=== PATIENT | female | born 1955 | race Caucasian/White ===

== ENCOUNTER 2016-03-28 15:03 | Inpatient (IN) | payer SELFPAY ==
[~2016-03-28] VITALS: Ht 170.2 cm; Wt 112.0 kg
[~2016-03-28 15:03] MED LIST: ASPI81TA28 PO; CPR500 PO; CYAN100020 PO; FERR1TAB23 PO; METH500T3 PO; MTR500 PO; NCDT14 TD; prednison PO
[2016-03-28] MEDS ORDERED: SODIUM CHLORIDE 0.9% 1000ML 1,000 ML IV STA (16:08)
[2016-03-28] MEDS ORDERED: ONDANSETRON 8 MG/54 ML D5W IV STA (16:08)
[2016-03-28] MEDS ORDERED: SODIUM CHLORIDE 0.9% 500ML 500 ML IV STA (16:08)
[2016-03-28 16:12] LABS: ALT/SGPT 24 U/L (12-78); BLOOD UREA NITROGEN 16 mg/dl (7-18); BUN/CREATININE RATIO 14.4 (10-20); CALCIUM 10.1 mg/dl (8.5-10.1); CARBON DIOXIDE 23 mmol/L (21-32); CHLORIDE 101 mmol/L (98-107); GLUCOSE 142 mg/dl (70-99); POTASSIUM 3.8 mmol/L (3.5-5.1); SODIUM 139 mmol/L (136-145)
[2016-03-28] MEDS: HYDROmorphone INJ 1 MG/ML SYR IV PRN ×2 (16:14→17:34)
[2016-03-28 16:15] LABS: ALKALINE PHOSPHATASE 128 U/L (45-117); AST/SGOT 18 U/L (15-37)
[2016-03-28 16:16] LABS: HEMATOCRIT 48.7 % (37-47); MEAN CELL VOLUME 88.7 fL (80-100); MEAN CORPUSCULAR HEMOGLOBIN 32.2 pg (25-34); MEAN CORPUSCULAR HGB CONC 36.3 g/dl (32-36); MEAN PLATELET VOLUME 9.8 fL (7.4-10.4); PLATELET COUNT 323 K/uL (130-400); RED BLOOD COUNT 5.49 M/uL (4.2-5.4); WHITE BLOOD COUNT 14.15 K/uL (4.8-10.8)
[2016-03-28 17:12] LABS: COMPLETE YES; EOSINOPHIL % 0.9 %; LYMPH ABS # 0.37 K/uL (1.2-3.4); LYMPHOCYTE % 2.6 %; NEUTROPHILS % 79.4 %; VARIANT LYM ABS # 2.05 K/uL; VARIANT LYMPHOCYTE % 14.5 %
--- NOTE | 2016-03-28 17:30 | DIAGNOSTIC IMAGING REPORT ---
ABDOMEN AND PELVIS CT WITHOUT CONTRAST CT DOSE: 1657.46 mGy.cm HISTORY: Nausea and vomiting. Generalized abdominal pain. TECHNIQUE: Multiaxial CT images of the abdomen and pelvis were performed without contrast. COMPARISON STUDY: Abdomen and pelvis CT 09/11/2015. FINDINGS: The lung bases are clear. No pneumoperitoneum. No pneumatosis. The unenhanced liver, spleen, kidneys, pancreas, and adrenal glands are unremarkable. Small amount of gallbladder sludge is suspected. No gallbladder wall thickening. No retroperitoneal lymphadenopathy. The bladder is not well-distended but appears unremarkable. The uterus and bilateral ovaries are within normal limits. Colonic diverticulosis. The colon is decompressed. Moderate thickening involving a short segment of the distal ileum located within the anterior mid abdomen. There is associated adjacent fat stranding. This is progressed compared to the prior studies. This results in a transition point of a small bowel obstruction. The small bowel proximal to this area are distended up to 6.6 cm. However, the proximal jejunal loops are decompressed with a possible second proximal transition point on image 74 of 100. Therefore, this raises the possibility of a closed loop obstruction. There is mild mesenteric edema. Evaluation for bowel pathology is suboptimal due to lack of intravenous and oral contrast. IMPRESSION: Multiple markedly distended loops of mid to distal small bowel with both distal and proximal transition points as described above. Therefore, this raises the possibility of a closed loop obstruction. The distal transition point is due to a thickened loop of distal ileum with adjacent fat stranding. This could be due to an infectious or inflammatory ileitis. Overall, this has progressed compared to the prior examination. The proximal transition point etiology is uncertain and could be due to an adhesion. Findings were discussed with Dr. Frey at 5:30 PM on 03/28/2016. Electronically signed by: Deejay Jin M.D. 03/28/2016 5:29 PM Dictated Date/Time: 03/28/2016 5:17 PM
[2016-03-28 17:34] LABS: URINE APPEARANCE CLOUDY (CLEAR); URINE COLOR DK YELLOW; URINE EPITHELIAL CELL AUTO >30 /lpf (0-5); URINE NITRITE NEG (NEG); URINE SPECIFIC GRAVITY 1.024 (1.000-1.030); UROBILINOGEN NEG (NEG); ZZUR CULT IF INDIC CLEAN CATCH YES
[2016-03-28 17:57] LABS: MANUAL MICROSCOPIC REQUIRED? NO; REVIEW REQ? YES; URINE BILIRUBIN 1+ (NEG)
[2016-03-28 18:01] LABS: URINE PATH CASTS 1-5 GRANULAR CASTS /lpf (0)
[2016-03-28 18:15] VITALS: O2SAT 97; Ht 170.2 cm; Wt 112.0 kg
[2016-03-28] MEDS ORDERED: GLUCOSE 40% GEL 15 GM TUBE PO PRN (18:15)
[2016-03-28] MEDS ORDERED: ZOLPIDEM TARTRATE 5 MG TAB PO PRN (18:15)
[2016-03-28] MEDS ORDERED: MoRPHine SULFATE 2 MG/ML CARP IV PRN (18:15)
[2016-03-28] MEDS ORDERED: GLUCAGON FOR INJ 1 MG VIAL SQ PRN (18:15)
[2016-03-28] MEDS ORDERED: LORAZEPAM 2 MG/ML 1 ML VIAL IV PRN (18:15)
[2016-03-28] MEDS ORDERED: ONDANSETRON INJ 2 MG/ML 2 ML VIAL IV PRN (18:15)
[2016-03-28] MEDS ORDERED: MoRPHine SULFATE 4 MG/ML 1 ML CARP\\VIAL IV PRN (18:15)
[2016-03-28] MEDS ORDERED: DEXTROSE 50% 50 ML SYR IV PRN (18:15)
[2016-03-28] MEDS ORDERED: GLUCOSE 10 TABS/TUBE PO PRN (18:15)
[2016-03-28] MEDS ORDERED: DiphenhydrAMINE HCL 50 MG/ML VIAL IV PRN (18:15)
[2016-03-28] MEDS ORDERED: PROMETHAZINE HCL INJ 12.5 MG in SODIUM CHLORIDE 0.9% 50ML 50 ML IV PRN (18:15)
--- NOTE | 2016-03-28 18:34 | EMERGENCY ROOM VISIT NOTE ---
History Report prepared by Chon: Tacho Higgins Under the Supervision of: Dr. Keon Frey M.D. First contact with patient: 15:32 Chief Complaint: ABDOMINAL PAIN Stated Complaint: CROHNS DISEASE, STOMACH PAIN, VOMITING Nursing Triage Summary: Pt c/o abdominal pain for 3 days and N/V/D that started today. Pt has history of Crohn's and SBO History of Present Illness The patient is a 60 year old female who presents to the Emergency Room with complaints of abdominal pain that began 3 days ago. She rates her pain a 10/10 in severity. The patient has a history of Crohn's disease. She has had previous bowel blockages secondary to her condition. The patient states that her current pain and symptoms feel like her prior blockages. She is experiencing headaches, diaphoresis, back pain, nausea, and vomiting. The patient has vomited 5 times within this hour. She had trace amounts of blood in her stool a week ago, but none since then. Patient denies LOC, fevers, chills, visual changes, neck pain , chest pain, breathing difficulties, melena, hematochezia, urinary symptoms, numbness, weakness, lymphadenopathy, rash, or other complaints. Source of History: patient Onset: 3 days ago Position: abdomen Symptom Intensity: 10/10 Quality: sharp Timing: constant Associated Symptoms: + back pain, + diaphoresis, + headache, + nausea, + vomiting Review of Systems See HPI for pertinent positives and negatives. A total of ten systems were reviewed and were otherwise negative. Past Medical & Surgical Medical Problems: (1) Bowel obstruction (2) Cellulitis (3) Crohns disease (4) SBO (small bowel obstruction) Family History Not pertinent due to age. Social History Smoking Status: Current Every Day Smoker Smokeless Tobacco Use: No Drug Use: none Marital Status: Housing Status: lives alone Occupation Status: unemployed Current/Historical Medications Scheduled Aspirin (Aspirin Ec), 81 MG PO DAILY Cyanocobalamin (Vitamin B12), 1,000 MCG PO DAILY Ferrous Sulfate (Iron), 325 MG PO DAILY Methylcellulose (Laxative) (Citrucel), 500 MG PO TID Allergies Coded Allergies: No Known Allergies (Unverified , 03/28/16) Physical Exam Vital Signs Date Time Temp Pulse Resp B/P Pulse Ox O2 Delivery O2 Flow Rate FiO2 03/28/16 17:35 87 18 132/85 97 Room Air 03/28/16 15:14 36.6 88 20 117/75 94 Room Air Physical Exam GENERAL: Awake, alert, well-appearing, in no distress HENT: Normocephalic, atraumatic. Oropharynx unremarkable. EYES: Normal conjunctiva. Sclera non-icteric. NECK: Supple. No nuchal rigidity. FROM. No JVD. RESPIRATORY: Clear to auscultation. CARDIAC: Regular rate, normal rhythm. Extremities warm and well perfused. Pulses equal. ABDOMEN: Soft, non-distended. Epigastric and RUQ tenderness to palpation. No rebound or guarding. No masses. RECTAL: Deferred. MUSCULOSKELETAL: Chest examination reveals no tenderness. The back is symmetrical on inspection without obvious abnormality. There is no CVA tenderness to palpation. No joint edema. LOWER EXTREMITIES: Calves are equal size bilaterally and non-tender. No edema. No discoloration. NEURO: Normal sensorium. No sensory or motor deficits noted. SKIN: No rash or jaundice noted. Medical Decision & Procedures ER Provider Diagnostic Interpretation: Radiology results are stated below per my review and radiologist interpretation: ABDOMEN AND PELVIS CT WITHOUT CONTRAST CT DOSE: 1657.46 mGy.cm HISTORY: Nausea and vomiting. Generalized abdominal pain. TECHNIQUE: Multiaxial CT images of the abdomen and pelvis were performed without contrast. COMPARISON STUDY: Abdomen and pelvis CT 09/11/2015. FINDINGS: The lung bases are clear. No pneumoperitoneum. No pneumatosis. The unenhanced liver, spleen, kidneys, pancreas, and adrenal glands are unremarkable. Small amount of gallbladder sludge is suspected. No gallbladder wall thickening. No retroperitoneal lymphadenopathy. The bladder is not well-distended but appears unremarkable. The uterus and bilateral ovaries are within normal limits. Colonic diverticulosis. The colon is decompressed. Moderate thickening involving a short segment of the distal ileum located within the anterior mid abdomen. There is associated adjacent fat stranding. This is progressed compared to the prior studies. This results in a transition point of a small bowel obstruction. The small bowel proximal to this area are distended up to 6.6 cm. However, the proximal jejunal loops are decompressed with a possible second proximal transition point on image 74 of 100. Therefore, this raises the possibility of a closed loop obstruction. There is mild mesenteric edema. Evaluation for bowel pathology is suboptimal due to lack of intravenous and oral contrast. IMPRESSION: Multiple markedly distended loops of mid to distal small bowel with both distal and proximal transition points as described above. Therefore, this raises the possibility of a closed loop obstruction. The distal transition point is due to a thickened loop of distal ileum with adjacent fat stranding. This could be due to an infectious or inflammatory ileitis. Overall, this has progressed compared to the prior examination. The proximal transition point etiology is uncertain and could be due to an adhesion. Findings were discussed with Dr. Frey at 5:30 PM on 03/28/2016. Electronically signed by: Deejay Jin M.D. 03/28/2016 5:29 PM Dictated Date/Time: 03/28/2016 5:17 PM Laboratory Results 03/28/16 15:28 Red Blood Count 5.49, Mean Corpuscular Volume 88.7, Mean Corpuscular Hemoglobin 32.2, Mean Corpuscular Hemoglobin Concent 36.3, Mean Platelet Volume 9.8 03/28/16 15:28 Test 03/28/16 15:28 03/28/16 16:49 White Blood Count 14.15 K/uL (4.8-10.8) Red Blood Count 5.49 M/uL (4.2-5.4) Hemoglobin 17.7 g/dL (12.0-16.0) Hematocrit 48.7 % (37-47) Mean Corpuscular Volume 88.7 fL (80-100) Mean Corpuscular Hemoglobin 32.2 pg (25-34) Mean Corpuscular Hemoglobin Concent 36.3 g/dl (32-36) Platelet Count 323 K/uL (130-400) Mean Platelet Volume 9.8 fL (7.4-10.4) RDW Standard Deviation 39.9 fL (36.4-46.3) RDW Coefficient of Variation 12.4 % (11.5-14.5) Neutrophils % (Manual) 79.4 % Lymphocytes % (Manual) 2.6 % Variant Lymphocytes % (manual) 14.5 % Monocytes % (Manual) 2.6 % Eosinophils % (Manual) 0.9 % Neutrophils # (Manual) 11.24 K/uL (1.4-6.5) Total Absolute Neutrophils 11.24 K/uL (1.4-6.5) Lymphocytes # (Manual) 0.37 K/uL (1.2-3.4) Absolute Variant Lymphocytes 2.05 K/uL Total Absolute Lymphocytes 2.42 K/uL (1.2-3.4) Monocytes # (Manual) 0.37 K/uL (0.11-0.59) Eosinophils # (Manual) 0.13 K/uL (0-0.5) Red Blood Cell Morphology Unremarkable Anion Gap 15.0 mmol/L (3-11) Est Creatinine Clear Calc Drug Dose 69.3 ml/min Estimated GFR () 62.8 Estimated GFR (Non- 54.1 BUN/Creatinine Ratio 14.4 (10-20) Calcium Level 10.1 mg/dl (8.5-10.1) Total Bilirubin 0.4 mg/dl (0.2-1) Direct Bilirubin < 0.1 mg/dl (0-0.2) Aspartate Amino Transf (AST/SGOT) 18 U/L (15-37) Alanine Aminotransferase (ALT/SGPT) 24 U/L (12-78) Alkaline Phosphatase 128 U/L (45-117) Total Protein 8.0 gm/dl (6.4-8.2) Albumin 3.7 gm/dl (3.4-5.0) Lipase 126 U/L (73-393) Urine Color DK YELLOW Urine Appearance CLOUDY (CLEAR) Urine pH 5.0 (4.5-7.5) Urine Specific Deaver 1.024 (1.000-1.030) Urine Protein 1+ (NEG) Urine Glucose (UA) NEG (NEG) Urine Ketones TRACE (NEG) Urine Occult Blood NEG (NEG) Urine Nitrite NEG (NEG) Urine Bilirubin 1+ (NEG) Urine Urobilinogen NEG (NEG) Urine Leukocyte Esterase TRACE (NEG) Urine WBC (Auto) 1-5 /hpf (0-5) Urine RBC (Auto) 5-10 /hpf (0-4) Urine Hyaline Casts (Auto) 10-30 /lpf (0-5) Urine Epithelial Cells (Auto) >30 /lpf (0-5) Urine Bacteria (Auto) 1+ (NEG) Urine Pathogenic Casts 1-5 GRANULAR CASTS /lpf (0) Laboratory results reviewed by me Medications Administered Medications (Trade) Dose Ordered Sig/Rachael Route Start Time Stop Time Status Last Admin Dose Admin Sodium Chloride 1,000 ml @ 125 mls/hr Q8H STAT IV 2/18/17 16:08 03/29/16 00:07 03/28/16 16:14 125 MLS/HR Sodium Chloride (Nss 500ml) 500 ml @ 999 mls/hr Q31M STAT IV 03/28/16 16:08 03/28/16 16:38 DC 03/28/16 16:14 999 MLS/HR Ondansetron HCl (Zofran 8mg Iv) 8 mg NOW STAT IV 03/28/16 16:08 03/28/16 16:12 DC 03/28/16 16:14 8 MG Hydromorphone HCl (Dilaudid Inj) 1 mg Q15M PRN IV 03/28/16 16:15 04/11/16 16:14 03/28/16 17:34 1 MG ED Course 1532: The patient was evaluated in room A12. A complete history and physical exam was performed. 1608: Ondansetron HCl 8 mg IV, Sodium Chloride 500 ml @ 999 mls/hr IV, Sodium Chloride 1000 ml @ 125 mls/hr IV 1615: Dilaudid Inj 1 mg IV 1730: Upon reexamination, the patient was resting. I discussed the test results and treatment plan with her. The patient will be evaluated by Dr. Saji Todd [facility] [place], for further management. Medical Decision Triage Nursing notes reviewed. The patient's presentation and history were concerning for abdominal pain. Etiologies such as obstruction, inflammatory bowel disease, appendicitis, diverticulitis, renal colic, PUD, biliary pathology, pancreatitis, mesenteric ischemia, aortic pathology, infections, genitourinary, UTI, perforated viscus, as well as others were entertained. Patient was evaluated. She was uncomfortable. Blood work was obtained. She was hydrated. She was given Zofran and Dilaudid. She did feel better after 2 doses of Dilaudid. Nausea resolved. The patient's CBC revealed hemoconcentration as well as a leukocytosis. Chemistry panel, LFTs and lipase were negative. CT scan revealed a bowel obstruction. There was concerning findings for possible closed loop obstruction. I did discuss the case with Dr. Deejay Jin of radiology. Surgery and medicine consultations were made. The patient was evaluated in the Emergency Room for further management. The chart was completed utilizing [employer] voice recognition software. Grammatical errors, random word insertions, pronoun errors, and incomplete sentences are an occasional consequence of this system due to software limitations, ambient noise, and hardware issues. Any formal questions or concerns about the content, text, or information contained within the body of this dictation should be directly addressed to the physician for clarification. Consults Time Called: 1725 Consulting Physician: Dr. Saji BRUNO Returned Call: 1730 They will be evaluating the patient for further management. Additional Consults: Time Called: 1800 Consulted Physician: Dr. Joselo Navas Returned Call: 1800 Additional Comments: Discussed the patient's obstruction, history and presentation. He will see the patient for admission. He is aware surgery consultation pending. Impression Primary Impression: SBO (small bowel obstruction) Scribe Attestation The scribe's documentation has been prepared under my direction and personally reviewed by me in its entirety. I confirm that the note above accurately reflects all work, treatment, procedures, and medical decision making performed by me. Departure Information Dispostion Being Evaluated By Hospitalist Referrals Oc Sesay PA-C (PCP) Patient Instructions My [facility]
--- NOTE | 2016-03-28 18:42 | Surgery Consultation ---
Consultation Date of Consultation: Mar 28, 2016. Attending Physician: Reason for Consultation: abdominal pain/SBO/hx of crohn's History of Present Illness 60 y/o female with a several day history of diffuse abdominal pain. progressed and she ended up vomitting several times earlier today. She has a recent dx of Crohn's disease and states she has been in and out of [facility] several times for the same issue. she states she has no health insurance. her pcp was able to get her 1 month of her Asacol which she took and had no problems. she cannot afford the asacol and has not been taking it. she currently is feeling better since having had fluids, nausea and pain medication. only prior abdominal surgery is tubal ligation and d&c. Past Medical/Surgical History Medical Problems: (1) Diarrhea Status: Acute (2) Fistula of intestine, excluding rectum and anus Status: Acute (3) Small bowel obstruction Status: Acute Social History Smoking Status: Current Every Day Smoker Drug Use: none Marital Status: Housing Status: lives alone Occupation Status: unemployed Allergies Coded Allergies: No Known Allergies (Unverified , 03/28/16) Home Medications Scheduled Aspirin (Aspirin Ec), 81 MG PO DAILY Cyanocobalamin (Vitamin B12), 1,000 MCG PO DAILY Ferrous Sulfate (Iron), 325 MG PO DAILY Methylcellulose (Laxative) (Citrucel), 500 MG PO TID Current Inpatient Medications Current Inpatient Medications Medications (Trade) Dose Ordered Sig/Rachael Route Start Time Stop Time Status Last Admin Dose Admin Sodium Chloride (Nss 1000ml) 1,000 ml @ 125 mls/hr Q8H STAT IV 03/28/16 16:08 03/29/16 00:07 03/28/16 16:14 125 MLS/HR Hydromorphone HCl (Dilaudid Inj) 1 mg Q15M PRN IV 03/28/16 16:15 04/11/16 16:14 03/28/16 17:34 1 MG Lorazepam (Ativan Inj) 0.5 mg Q4H PRN IV 03/28/16 18:15 04/27/16 18:14 UNV Diphenhydramine HCl 25 mg 25 mg Q4H PRN IV 03/28/16 18:15 04/27/16 18:14 UNV Promethazine HCl/ Sodium Chloride (Phenergan Inj/ Nss 50ml) 50.5 ml @ 202 mls/hr Q4H PRN IV 03/28/16 18:15 04/27/16 18:14 UNV Zolpidem Tartrate (Ambien Tab) 5 mg HSZ PRN PO 03/28/16 18:15 04/27/16 18:14 UNV Ondansetron HCl (Zofran Inj) 4 mg Q6H PRN IV 03/28/16 18:15 04/27/16 18:14 UNV Morphine Sulfate (MoRPHine SULFATE INJ) 2 mg Q2H PRN IV 03/28/16 18:15 04/11/16 18:14 UNV Morphine Sulfate 4 mg 4 mg Q2H PRN IV 03/28/16 18:15 04/11/16 18:14 UNV Potassium Chloride/Sodium Chloride 1,000 ml @ 100 mls/hr Q10H IV 03/28/16 18:11 04/27/16 18:10 UNV Pantoprazole Sodium 40 mg/ Syringe 10 ml @ 5 mls/min DAILY@11 IV 03/29/16 11:00 04/28/16 10:59 UNV Acetaminophen 100 ml @ 400 mls/hr Q8H PRN IV 03/28/16 18:15 04/27/16 18:14 UNV Piperacillin Sod/ Tazobactam Sod/ Dextrose (Zosyn Iv/D5 100ml) 115 ml @ 28.75 mls/ hr Q8 IV 03/28/16 22:00 04/07/16 21:59 UNV Insulin Aspart (novoLOG ASPART) SLIDING SCALE If C... ACHS SC 03/28/16 21:00 04/27/16 20:59 UNV Glucose (Glucose 40% Gel) UD PRN PO 03/28/16 18:15 04/27/16 18:14 UNV Glucose (Glucose Chew Tab) 1 tabs UD PRN PO 03/28/16 18:15 04/27/16 18:14 UNV Dextrose (Dextrose 50% 50ML Syringe) 50 ml UD PRN IV 03/28/16 18:15 04/27/16 18:14 UNV Glucagon (Glucagon Inj) 1 mg UD PRN SQ 03/28/16 18:15 04/27/16 18:14 UNV Review of Systems Abdomen: + nausea, + pain, + vomiting, No GI bleeding, No constipation, No diarrhea Physical Exam Date Time Temp Pulse Resp B/P Pulse Ox O2 Delivery O2 Flow Rate FiO2 03/28/16 18:15 97 Room Air 03/28/16 17:35 87 18 132/85 97 Room Air 03/28/16 15:14 36.6 88 20 117/75 94 Room Air General Appearance: no apparent distress Head: normocephalic, atraumatic Eyes: PERRL, EOMI ENT: hearing grossly normal Neck: supple, no adenopathy Respiratory/Chest: no respiratory distress, no accessory muscle use Cardiovascular: no edema, no JVD Abdomen/GI: soft, + pertinent finding (diffuse but mild ttp. no g/r/r. ? 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, alert, oriented x 3 Skin: normal color, warm/dry Laboratory Results Last 24 Hours Test 03/28/16 15:28 03/28/16 16:49 White Blood Count 14.15 K/uL Red Blood Count 5.49 M/uL Hemoglobin 17.7 g/dL Hematocrit 48.7 % Mean Corpuscular Volume 88.7 fL Mean Corpuscular Hemoglobin 32.2 pg Mean Corpuscular Hemoglobin Concent 36.3 g/dl Platelet Count 323 K/uL Mean Platelet Volume 9.8 fL RDW Standard Deviation 39.9 fL RDW Coefficient of Variation 12.4 % Neutrophils % (Manual) 79.4 % Lymphocytes % (Manual) 2.6 % Variant Lymphocytes % (manual) 14.5 % Monocytes % (Manual) 2.6 % Eosinophils % (Manual) 0.9 % Neutrophils # (Manual) 11.24 K/uL Total Absolute Neutrophils 11.24 K/uL Lymphocytes # (Manual) 0.37 K/uL Absolute Variant Lymphocytes 2.05 K/uL Total Absolute Lymphocytes 2.42 K/uL Monocytes # (Manual) 0.37 K/uL Eosinophils # (Manual) 0.13 K/uL Red Blood Cell Morphology Unremarkable Sodium Level 139 mmol/L Potassium Level 3.8 mmol/L Chloride Level 101 mmol/L Carbon Dioxide Level 23 mmol/L Anion Gap 15.0 mmol/L Blood Urea Nitrogen 16 mg/dl Creatinine 1.10 mg/dl Est Creatinine Clear Calc Drug Dose 69.3 ml/min Estimated GFR () 62.8 Estimated GFR (Non- 54.1 BUN/Creatinine Ratio 14.4 Random Glucose 142 mg/dl Calcium Level 10.1 mg/dl Total Bilirubin 0.4 mg/dl Direct Bilirubin < 0.1 mg/dl Aspartate Amino Transf (AST/SGOT) 18 U/L Alanine Aminotransferase (ALT/SGPT) 24 U/L Alkaline Phosphatase 128 U/L Total Protein 8.0 gm/dl Albumin 3.7 gm/dl Lipase 126 U/L Urine Color DK YELLOW Urine Appearance CLOUDY Urine pH 5.0 Urine Specific Thomas 1.024 Urine Protein 1+ Urine Glucose (UA) NEG Urine Ketones TRACE Urine Occult Blood NEG Urine Nitrite NEG Urine Bilirubin 1+ Urine Urobilinogen NEG Urine Leukocyte Esterase TRACE Urine WBC (Auto) 1-5 /hpf Urine RBC (Auto) 5-10 /hpf Urine Hyaline Casts (Auto) 10-30 /lpf Urine Epithelial Cells (Auto) >30 /lpf Urine Bacteria (Auto) 1+ Urine Pathogenic Casts 1-5 GRANULAR CASTS /lpf Assessment & Plan 1. suspect acute crohn's flare abdominal exam not impressive currently. likely segmental strictures in small bowel on ct rather than closed loop obstruction. rec GI consult. restart steroids and crohn's meds will need to work with SS to get her maintenance medications will follow closely but doubt she will need surgery this admission keep npo/IVF until clinically improves. will follow along for now thank you.
[2016-03-28 19:30] VITALS: BP 119/79; PULSE 86; TEMP 36.7; O2SAT 97
--- NOTE | 2016-03-28 20:24 | History and Physical ---
History & Physical Date & Time of Service: Mar 28, 2016 at 20:18 Chief Complaint: Crohns Disease, Small Bowel Obstruction Primary Care Physician: Oc Sesay PA-C History of Present Illness Source: patient The patient is a 60-year-old female who presents emergency department with worsening abdominal pain that began 3 days prior to arrival. She has been seen in August 2015 at [facility] for similar symptoms, during that visit underwent a colonoscopy no diagnosed with Crohn's disease, for which she is not on any present treatment. She reports that she's had 8 bowel blockages since November, and has been at [facility] and [facility] during that time. Her symptoms this time are worse in that she has had vomiting 5 times within the past hour. She reports that she's lost 60 pounds during the past year. Past Medical/Surgical History Medical Problems: (1) Cellulitis Status: Resolved Social History Smoking Status: Current Every Day Smoker Smokeless Tobacco Use: No Drug Use: none Marital Status: Occupational Status: unemployed Multi-Drug Resistant Organisms History of MDRO: No Allergies Coded Allergies: No Known Allergies (Unverified , 03/28/16) Home Medications Scheduled Aspirin (Aspirin Ec), 81 MG PO DAILY Cyanocobalamin (Vitamin B12), 1,000 MCG PO DAILY Ferrous Sulfate (Iron), 325 MG PO DAILY Methylcellulose (Laxative) (Citrucel), 500 MG PO TID Review of Systems The patient denies chest pain, palpitations, shortness of breath, cough, lower extremity swelling, vision change, hearing change, sore throat, fevers, chills, sweats, blood in urine or stool, dysuria, urinary frequency or urgency, lightheadedness, dizziness, headache, memory loss, rash, abnormal bruising or bleeding, imbalance, focal or generalized weakness, numbness or tingling in arms or legs, arthralgias or myalgias, back or neck pain, night sweats, or allergy symptoms. The review of systems is otherwise negative other than for that already noted above, and at least 10 systems have been reviewed. Physical Exam Vital Signs Date Time Temp Pulse Resp B/P Pulse Ox O2 Delivery O2 Flow Rate FiO2 03/28/16 18:59 88 18 118/96 94 Room Air 03/28/16 18:15 97 Room Air 03/28/16 17:35 87 18 132/85 97 Room Air 03/28/16 15:14 36.6 88 20 117/75 94 Room Air The patient is awake, well-developed and adequately nourished, alert and oriented 3, normocephalic and atraumatic, lying in bed and in no acute distress. HEENT--PERRL, EOMI, mucous membranes and oropharynx dry. Neck--supple, no JVD or bruits, thyroid normal, trachea midline, no adenopathy. Heart--normal S1 and S2, no extra beats, no murmurs, rubs or gallops. Lungs--clear bilaterally with good air movement, no respiratory distress, no accessory muscle use. Abdomen--decreased bowel sounds and soft, generalized mild tenderness, and nondistended. Extremities--no cyanosis, clubbing or edema. There are good distal pulses b/l. Dermatologic--normal skin turgor, normal color, warm and dry, no abnormal lymph nodes, no rash. Neurologic--cranial nerves II through XII grossly intact, motor and sensory examination normal. Rheumatologic--normal range of motion, nontender, muscles and joints. Psychiatric--normal affect. Diagnostics Laboratory Results Results Past 24 Hours Test 03/28/16 15:28 03/28/16 16:49 Range/Units White Blood Count 14.15 4.8-10.8 K/uL Red Blood Count 5.49 4.2-5.4 M/uL Hemoglobin 17.7 12.0-16.0 g/dL Hematocrit 48.7 37-47 % Mean Corpuscular Volume 88.7 80-100 fL Mean Corpuscular Hemoglobin 32.2 25-34 pg Mean Corpuscular Hemoglobin Concent 36.3 32-36 g/dl Platelet Count 323 130-400 K/uL Mean Platelet Volume 9.8 7.4-10.4 fL RDW Standard Deviation 39.9 36.4-46.3 fL RDW Coefficient of Variation 12.4 11.5-14.5 % Neutrophils % (Manual) 79.4 % Lymphocytes % (Manual) 2.6 % Variant Lymphocytes % (manual) 14.5 % Monocytes % (Manual) 2.6 % Eosinophils % (Manual) 0.9 % Neutrophils # (Manual) 11.24 1.4-6.5 K/uL Total Absolute Neutrophils 11.24 1.4-6.5 K/uL Lymphocytes # (Manual) 0.37 1.2-3.4 K/uL Absolute Variant Lymphocytes 2.05 K/uL Total Absolute Lymphocytes 2.42 1.2-3.4 K/uL Monocytes # (Manual) 0.37 0.11-0.59 K/uL Eosinophils # (Manual) 0.13 0-0.5 K/uL Red Blood Cell Morphology Unremarkable Sodium Level 139 136-145 mmol/L Potassium Level 3.8 3.5-5.1 mmol/L Chloride Level 101 98-107 mmol/L Carbon Dioxide Level 23 21-32 mmol/L Anion Gap 15.0 3-11 mmol/L Blood Urea Nitrogen 16 7-18 mg/dl Creatinine 1.10 0.60-1.20 mg/dl Est Creatinine Clear Calc Drug Dose 69.3 ml/min Estimated GFR () 62.8 Estimated GFR (Non- 54.1 BUN/Creatinine Ratio 14.4 10-20 Random Glucose 142 70-99 mg/dl Calcium Level 10.1 8.5-10.1 mg/dl Total Bilirubin 0.4 0.2-1 mg/dl Direct Bilirubin < 0.1 0-0.2 mg/dl Aspartate Amino Transf (AST/SGOT) 18 15-37 U/L Alanine Aminotransferase (ALT/SGPT) 24 12-78 U/L Alkaline Phosphatase 128 45-117 U/L Total Protein 8.0 6.4-8.2 gm/dl Albumin 3.7 3.4-5.0 gm/dl Lipase 126 73-393 U/L Hepatitis C Antibody Screen NEG NEG Urine Color DK YELLOW Urine Appearance CLOUDY CLEAR Urine pH 5.0 4.5-7.5 Urine Specific [place] 1.024 1.000-1.030 Urine Protein 1+ NEG Urine Glucose (UA) NEG NEG Urine Ketones TRACE NEG Urine Occult Blood NEG NEG Urine Nitrite NEG NEG Urine Bilirubin 1+ NEG Urine Urobilinogen NEG NEG Urine Leukocyte Esterase TRACE NEG Urine WBC (Auto) 1-5 0-5 /hpf Urine RBC (Auto) 5-10 0-4 /hpf Urine Hyaline Casts (Auto) 10-30 0-5 /lpf Urine Epithelial Cells (Auto) >30 0-5 /lpf Urine Bacteria (Auto) 1+ NEG Urine Pathogenic Casts 1-5 GRANULAR CASTS 0 /lpf Microbiology Results 03/28/16 Urine Culture, Received Pending Diagnostic Radiology Patient Name: JAYDON DIMAS Unit Number: [id number] Dictated: 03/28/161716 Transcribed: 03/28/161716 [facility] Printed Date/Time: [~ rep prt dt]/[~ rep prt tm] [~ rep ct labl] - [~ rep ct ivnm] [facility] [place] [address] Dictated: 03/28/161716 Transcribed: 03/28/161716 [facility] Printed Date/Time: [~ rep prt dt]/[~ rep prt tm] [~ rep ct labl] - [~ rep ct ivnm] ABDOMEN AND PELVIS CT WITHOUT CONTRAST CT DOSE: 1657.46 mGy.cm HISTORY: Nausea and vomiting. Generalized abdominal pain. TECHNIQUE: Multiaxial CT images of the abdomen and pelvis were performed without contrast. COMPARISON STUDY: Abdomen and pelvis CT 09/11/2015. FINDINGS: The lung bases are clear. No pneumoperitoneum. No pneumatosis. The unenhanced liver, spleen, kidneys, pancreas, and adrenal glands are unremarkable. Small amount of gallbladder sludge is suspected. No gallbladder wall thickening. No retroperitoneal lymphadenopathy. The bladder is not well-distended but appears unremarkable. The uterus and bilateral ovaries are within normal limits. Colonic diverticulosis. The colon is decompressed. Moderate thickening involving a short segment of the distal ileum located within the anterior mid abdomen. There is associated adjacent fat stranding. This is progressed compared to the prior studies. This results in a transition point of a small bowel obstruction. The small bowel proximal to this area are distended up to 6.6 cm. However, the proximal jejunal loops are decompressed with a possible second proximal transition point on image 74 of 100. Therefore, this raises the possibility of a closed loop obstruction. There is mild mesenteric edema. Evaluation for bowel pathology is suboptimal due to lack of intravenous and oral contrast. IMPRESSION: Multiple markedly distended loops of mid to distal small bowel with both distal and proximal transition points as described above. Therefore, this raises the possibility of a closed loop obstruction. The distal transition point is due to a thickened loop of distal ileum with adjacent fat stranding. This could be due to an infectious or inflammatory ileitis. Overall, this has progressed compared to the prior examination. The proximal transition point etiology is uncertain and could be due to an adhesion. Findings were discussed with Dr. Frey at 5:30 PM on 03/28/2016. Electronically signed by: Deejay Jin M.D. 03/28/2016 5:29 PM Dictated Date/Time: 03/28/2016 5:17 PM The status of this report is Signed. Draft = Not yet reviewed or approved by Radiologist. Signed = Reviewed and approved by Radiologist. <AttendingPhy></AttendingPhy> <FamilyPhy>Oc Sesay PA-C</FamilyPhy> < PrimaryPhy>Oc Sesay PA-C</PrimaryPhy> <UnitNumber>[id number]</ UnitNumber> <VisitNumber>[id number]</VisitNumber> <PatientName>WINGJAYDON< /PatientName> <DateOfBirth>1955</DateOfBirth> <Location>[facility]</Location> < ServiceDate>03/28/16</ServiceDate> <MNE>ESINDI</MNE> <OrderingPhy>Keon Frey MD</OrderingPhy> <OrderingPhyMNE>f rep ord dr salazar</OrderingPhyMNE> < DictatingPhyMNE>f rep dict dr salazar</DictatingPhyMNE> <CCListMNE>f rep ct martin</ CCListMNE> <AdmittingPhyMNE>f pt admit dr salazar</AdmittingPhyMNE> <AttendingPhyMNE >f pt attend dr salazar</AttendingPhyMNE> <ConsultingPhyMNE>f pt consult dr salazar</ConsultingPhyMNE> <FamilyPhyMNE>f pt fam dr salazar</FamilyPhyMNE> <OtherPhyMNE>f pt other dr salazar</OtherPhyMNE> < PrimaryPhyMNE>f pt prim care dr salazar</PrimaryPhyMNE> <ReferringPhyMNE>f pt referring dr salazar</ReferringPhyMNE> Impression Assessment and Plan Small bowel obstruction with possible closed loop obstruction secondary to infectious or inflammatory ileitis/history of Crohn's disease--the patient will be admitted to the medical surgical floor. She'll be seen by surgery while in the emergency department to determine if she is an acute surgical candidate. She'll be made nothing by mouth, placed on normal saline with potassium chloride 20 mEq 100 ML's per hour, Zosyn 3.375 mg IV every 8 hours, pantoprazole 40 mg IV daily, Zofran 4 mg IV every 6 hours when necessary, and Phenergan 12.5 mg IV every 6 hours when necessary. We'll follow serial laboratories and imaging studies. We'll also consult gastroenterology, she's been seen by Dr. Ulices Desir in the past while in the hospital. Level of Care Med/Surg Advanced Directives Existing Advance Directive: No Existing Living Will: No Existing Power of Marine Diesel Technician: No Resuscitation Status FULL RESUSCITATION VTE Prophylaxis VTE Risk Assessment Done? Y/N: Yes Risk Level: Moderate Given or contraindicated: SCD's
[2016-03-28] MEDS ORDERED: MoRPHine SULFATE 4 MG/ML 1 ML CARP\\VIAL ONE (20:37)
[2016-03-28] MEDS ORDERED: INSULIN ASPART 100 UNITS/ML 3 ML PEN SC SCH (21:00)
[2016-03-28] MEDS ORDERED: PIPERACILL/TAZOBAC CONSULT ACTIVE PRN (21:15)
[2016-03-28] MEDS ORDERED: NURSING DECISION MEDICATION ORDER SCH (21:15)
[2016-03-28] MEDS ORDERED: PIPERACILL/TAZOBAC IV 3.375 GM in DEXTROSE 5% 100ML 100 ML IV SCH (22:00)
[2016-03-28] MEDS ORDERED: PIPERACILL/TAZOBAC IV 4.5 GM in DEXTROSE 5% 100ML IV ONE (22:00)
[2016-03-28] MEDS: NSS + 20MEQ KCL 1000ML 1,000 ML IV SCH (22:07)
[2016-03-28 23:37] VITALS: BP 114/76; PULSE 73; TEMP 36.8; O2SAT 94
[2016-03-29] MEDS: ACETAMINOPHEN IV 100 ML IV PRN ×2 (00:11→14:32)
[2016-03-29] MEDS: PIPERACILL/TAZOBAC IV 4.5 GM in DEXTROSE 5% 100ML IV SCH ×3 (04:57→19:49)
[2016-03-29] MEDS: INSULIN ASPART 100 UNITS/ML 3 ML PEN SC SCH ×4 (06:00→18:00)
[2016-03-29 06:38] LABS: BUN/CREATININE RATIO 16.5 (10-20); CALCIUM 8.3 mg/dl (8.5-10.1); CREATININE 0.98 mg/dl (0.60-1.20); MAGNESIUM 2.2 mg/dl (1.8-2.4); POTASSIUM 3.8 mmol/L (3.5-5.1)
[2016-03-29 06:44] LABS: BASO % 0.3 %; BASO ABS # 0.02 K/uL (0-0.2); COMPLETE YES; EOS % 3.7 %; HEMATOCRIT 41.9 % (37-47); IG% 0.2 %; LYMPH % 28.9 %; MEAN CELL VOLUME 91.9 fL (80-100); MEAN CORPUSCULAR HEMOGLOBIN 31.8 pg (25-34); MEAN CORPUSCULAR HGB CONC 34.6 g/dl (32-36); MEAN PLATELET VOLUME 9.7 fL (7.4-10.4); MONO % 9.5 %; NEUT % 57.4 %; PLATELET COUNT 262 K/uL (130-400); RED BLOOD COUNT 4.56 M/uL (4.2-5.4); WHITE BLOOD COUNT 6.22 K/uL (4.8-10.8)
[2016-03-29 07:41] VITALS: BP 109/69; PULSE 66; TEMP 36.5; O2SAT 96
--- NOTE | 2016-03-29 08:58 | Surgery Progress Note ---
Surgery Progress Note Date of Service Mar 29, 2016. Subjective resting comfortably/sleeping. I did not wake her Objective Vital Signs: Date Time Temp Pulse Resp B/P Pulse Ox O2 Delivery O2 Flow Rate FiO2 03/29/16 07:41 36.5 66 16 109/69 96 Room Air 03/29/16 00:05 Room Air 03/28/16 23:37 36.8 73 16 114/76 94 Room Air 03/28/16 19:30 36.7 86 20 119/79 97 Room Air 03/28/16 18:59 88 18 118/96 94 Room Air 03/28/16 18:15 97 Room Air 03/28/16 17:35 87 18 132/85 97 Room Air 03/28/16 15:14 36.6 88 20 117/75 94 Room Air General Appearance: no apparent distress Head: normocephalic Neck: no JVD Respiratory/Chest: no respiratory distress Extremities: no pedal edema Laboratory Results: Results Past 24 Hours Test 03/28/16 15:28 03/28/16 16:49 03/28/16 23:58 03/29/16 05:25 Range/Units White Blood Count 14.15 6.22 4.8-10.8 K/uL Red Blood Count 5.49 4.56 4.2-5.4 M/uL Hemoglobin 17.7 14.5 12.0-16.0 g/dL Hematocrit 48.7 41.9 37-47 % Mean Corpuscular Volume 88.7 91.9 80-100 fL Mean Corpuscular Hemoglobin 32.2 31.8 25-34 pg Mean Corpuscular Hemoglobin Concent 36.3 34.6 32-36 g/dl Platelet Count 323 262 130-400 K/uL Mean Platelet Volume 9.8 9.7 7.4-10.4 fL RDW Standard Deviation 39.9 42.5 36.4-46.3 fL RDW Coefficient of Variation 12.4 12.7 11.5-14.5 % Neutrophils % (Manual) 79.4 % Lymphocytes % (Manual) 2.6 % Variant Lymphocytes % (manual) 14.5 % Monocytes % (Manual) 2.6 % Eosinophils % (Manual) 0.9 % Neutrophils # (Manual) 11.24 1.4-6.5 K/uL Total Absolute Neutrophils 11.24 1.4-6.5 K/uL Lymphocytes # (Manual) 0.37 1.2-3.4 K/uL Absolute Variant Lymphocytes 2.05 K/uL Total Absolute Lymphocytes 2.42 1.2-3.4 K/uL Monocytes # (Manual) 0.37 0.11-0.59 K/uL Eosinophils # (Manual) 0.13 0-0.5 K/uL Red Blood Cell Morphology Unremarkable Sodium Level 139 140 136-145 mmol/L Potassium Level 3.8 3.8 3.5-5.1 mmol/L Chloride Level 101 106 98-107 mmol/L Carbon Dioxide Level 23 25 21-32 mmol/L Anion Gap 15.0 9.0 3-11 mmol/L Blood Urea Nitrogen 16 16 7-18 mg/dl Creatinine 1.10 0.98 0.60-1.20 mg/dl Est Creatinine Clear Calc Drug Dose 69.3 77.8 ml/min Estimated GFR () 62.8 72.2 Estimated GFR (Non- 54.1 62.3 BUN/Creatinine Ratio 14.4 16.5 10-20 Random Glucose 142 90 70-99 mg/dl Calcium Level 10.1 8.3 8.5-10.1 mg/dl Total Bilirubin 0.4 0.5 0.2-1 mg/dl Direct Bilirubin < 0.1 0.1 0-0.2 mg/dl Aspartate Amino Transf (AST/SGOT) 18 13 15-37 U/L Alanine Aminotransferase (ALT/SGPT) 24 16 12-78 U/L Alkaline Phosphatase 128 88 45-117 U/L Total Protein 8.0 5.9 6.4-8.2 gm/dl Albumin 3.7 2.7 3.4-5.0 gm/dl Lipase 126 73-393 U/L Hepatitis C Antibody Screen NEG NEG Urine Color DK YELLOW Urine Appearance CLOUDY CLEAR Urine pH 5.0 4.5-7.5 Urine Specific [place] 1.024 1.000-1.030 Urine Protein 1+ NEG Urine Glucose (UA) NEG NEG Urine Ketones TRACE NEG Urine Occult Blood NEG NEG Urine Nitrite NEG NEG Urine Bilirubin 1+ NEG Urine Urobilinogen NEG NEG Urine Leukocyte Esterase TRACE NEG Urine WBC (Auto) 1-5 0-5 /hpf Urine RBC (Auto) 5-10 0-4 /hpf Urine Hyaline Casts (Auto) 10-30 0-5 /lpf Urine Epithelial Cells (Auto) >30 0-5 /lpf Urine Bacteria (Auto) 1+ NEG Urine Pathogenic Casts 1-5 GRANULAR CASTS 0 /lpf Bedside Glucose 107 70-90 mg/dl Neutrophils (%) (Auto) 57.4 % Lymphocytes (%) (Auto) 28.9 % Monocytes (%) (Auto) 9.5 % Eosinophils (%) (Auto) 3.7 % Basophils (%) (Auto) 0.3 % Neutrophils # (Auto) 3.57 1.4-6.5 K/uL Lymphocytes # (Auto) 1.80 1.2-3.4 K/uL Monocytes # (Auto) 0.59 0.11-0.59 K/uL Eosinophils # (Auto) 0.23 0-0.5 K/uL Basophils # (Auto) 0.02 0-0.2 K/uL Immature Granulocyte % (Auto) 0.2 % Immature Granulocyte # (Auto) 0.01 0.00-0.02 K/uL Magnesium Level 2.2 1.8-2.4 mg/dl Test 03/29/16 06:03 Range/Units Bedside Glucose 96 70-90 mg/dl Microbiology Results 03/28/16 Urine Culture, Received Pending Assessment & Plan pt in no distress awaiting GI rec's will order KUB today to eval small bowel today
[2016-03-29] MEDS: NSS + 20MEQ KCL 1000ML 1,000 ML IV SCH ×2 (09:10→18:26)
[2016-03-29] MEDS: NICOTINE 21 MG/24 HR TDSY TD PRN (09:10)
--- NOTE | 2016-03-29 10:05 | DIAGNOSTIC IMAGING REPORT ---
KUB CLINICAL HISTORY: SBO obstruction COMPARISON STUDY: CT dated 03/28/2016 FINDINGS: Findings of a distal partial small bowel obstructive change. Slight decrease in distention compared to the prior exam. Slight increase in colonic gas. IMPRESSION: Distal small bowel obstructive change slightly improved from the prior CT exam. Electronically signed by: Barrie Kurtz M.D. 03/29/2016 10:04 AM Dictated Date/Time: 03/29/2016 10:03 AM
--- NOTE | 2016-03-29 13:53 | Gastrointestinal Consultation ---
Gastrointestinal Consultation Date of Consultation: Mar 29, 2016 Attending Physician: Dr. Mercedes Consulting Physician: Dr. Patel Reason for Consultation: crohn's disease; SBO History of Present Illness Patient is a 60 year old female smoker with a diagnosis of fistulizing/ penetrating small bowel Crphn's disease which was diagnosed sometime in the last year. Prior to that she had reported several bowel obstructions and admissions to various [facility]. She was admitted here in August and underwent a colonoscopy on 09/12 (Dr. Desir) which showed terminal ileitis. She was discharged to home on a steroid taper and cipro and flagyl but never had any follow up secondary to insurance issues. She presented to the ER last evening with complaint of on-going weight loss as well as recent abdominal pain and nausea. Evaluation is significant for possible closed loop distal small bowel obstruction and significant inflammation of the distal terminal ileum. She was made NPO and is receiving IVF hydration. Less pain. Remains nauseated. No vomiting. Repeat KUB this Am with mild improvement. CT on prior admission also suggestive of fistulae (colon and small bowel). Past Medical/Surgical History Medical Problems: (1) Diarrhea Status: Acute (2) Fistula of intestine, excluding rectum and anus Status: Acute (3) Small bowel obstruction Status: Acute Past Medical History: Crohns recurrent SBO Past Surgical History: as noted in HPI Family History non-contributory Social History Smoking Status: Current Every Day Smoker Drug Use: none Marital Status: Housing Status: lives alone Occupation Status: unemployed Allergies Coded Allergies: No Known Allergies (Unverified , 03/28/16) Current Medications Home Meds and Scripts Medications Dose Route/Sig Max Daily Dose Days Date Category Citrucel (Methylcellulose (Laxative)) 500 Mg Tab 500 Mg PO TID 09/06/15 Reported Vitamin B12 (Cyanocobalamin) 1,000 Mcg Tab 1,000 Mcg PO DAILY 09/06/15 Reported Iron (Ferrous Sulfate) 325 Mg Tab 325 Mg PO DAILY 09/06/15 Reported Aspirin Ec (Aspirin) 81 Mg Tab 81 Mg PO DAILY 09/06/15 Reported Review of Systems 12 systems reviewed and negative except as noted Physical Exam Date Time Temp Pulse Resp B/P Pulse Ox O2 Delivery O2 Flow Rate FiO2 03/29/16 07:45 Room Air 03/29/16 07:41 36.5 66 16 109/69 96 Room Air 03/29/16 00:05 Room Air 03/28/16 23:37 36.8 73 16 114/76 94 Room Air 03/28/16 19:30 36.7 86 20 119/79 97 Room Air 03/28/16 18:59 88 18 118/96 94 Room Air 03/28/16 18:15 97 Room Air 03/28/16 17:35 87 18 132/85 97 Room Air 03/28/16 15:14 36.6 88 20 117/75 94 Room Air General Appearance: WD/WN, no apparent distress Eyes: normal inspection, PERRL ENT: normal ENT inspection, hearing grossly normal, pharynx normal Neck: supple, no adenopathy, no JVD Respiratory/Chest: chest non-tender, lungs clear, normal breath sounds, no respiratory distress, no accessory muscle use Cardiovascular: regular rate, rhythm, no murmur Abdomen: normal bowel sounds, non tender, + distended Extremities: normal range of motion, non-tender, normal inspection, no pedal edema, no calf tenderness Neurologic/Psych: control valve mechanic II-XII nml as tested, no motor/sensory deficits, alert, normal mood/affect, oriented x 3 Skin: normal color, no jaundice, warm/dry, no rash Laboratory Results Last 24 Hours Test 03/28/16 15:28 03/28/16 16:49 03/28/16 23:58 03/29/16 05:25 White Blood Count 14.15 K/uL 6.22 K/uL Red Blood Count 5.49 M/uL 4.56 M/uL Hemoglobin 17.7 g/dL 14.5 g/dL Hematocrit 48.7 % 41.9 % Mean Corpuscular Volume 88.7 fL 91.9 fL Mean Corpuscular Hemoglobin 32.2 pg 31.8 pg Mean Corpuscular Hemoglobin Concent 36.3 g/dl 34.6 g/dl Platelet Count 323 K/uL 262 K/uL Mean Platelet Volume 9.8 fL 9.7 fL RDW Standard Deviation 39.9 fL 42.5 fL RDW Coefficient of Variation 12.4 % 12.7 % Neutrophils % (Manual) 79.4 % Lymphocytes % (Manual) 2.6 % Variant Lymphocytes % (manual) 14.5 % Monocytes % (Manual) 2.6 % Eosinophils % (Manual) 0.9 % Neutrophils # (Manual) 11.24 K/uL Total Absolute Neutrophils 11.24 K/uL Lymphocytes # (Manual) 0.37 K/uL Absolute Variant Lymphocytes 2.05 K/uL Total Absolute Lymphocytes 2.42 K/uL Monocytes # (Manual) 0.37 K/uL Eosinophils # (Manual) 0.13 K/uL Red Blood Cell Morphology Unremarkable Sodium Level 139 mmol/L 140 mmol/L Potassium Level 3.8 mmol/L 3.8 mmol/L Chloride Level 101 mmol/L 106 mmol/L Carbon Dioxide Level 23 mmol/L 25 mmol/L Anion Gap 15.0 mmol/L 9.0 mmol/L Blood Urea Nitrogen 16 mg/dl 16 mg/dl Creatinine 1.10 mg/dl 0.98 mg/dl Est Creatinine Clear Calc Drug Dose 69.3 ml/min 77.8 ml/min Estimated GFR () 62.8 72.2 Estimated GFR (Non- 54.1 62.3 BUN/Creatinine Ratio 14.4 16.5 Random Glucose 142 mg/dl 90 mg/dl Calcium Level 10.1 mg/dl 8.3 mg/dl Total Bilirubin 0.4 mg/dl 0.5 mg/dl Direct Bilirubin < 0.1 mg/dl 0.1 mg/dl Aspartate Amino Transf (AST/SGOT) 18 U/L 13 U/L Alanine Aminotransferase (ALT/SGPT) 24 U/L 16 U/L Alkaline Phosphatase 128 U/L 88 U/L Total Protein 8.0 gm/dl 5.9 gm/dl Albumin 3.7 gm/dl 2.7 gm/dl Lipase 126 U/L Hepatitis C Antibody Screen NEG Urine Color DK YELLOW Urine Appearance CLOUDY Urine pH 5.0 Urine Specific [place] 1.024 Urine Protein 1+ Urine Glucose (UA) NEG Urine Ketones TRACE Urine Occult Blood NEG Urine Nitrite NEG Urine Bilirubin 1+ Urine Urobilinogen NEG Urine Leukocyte Esterase TRACE Urine WBC (Auto) 1-5 /hpf Urine RBC (Auto) 5-10 /hpf Urine Hyaline Casts (Auto) 10-30 /lpf Urine Epithelial Cells (Auto) >30 /lpf Urine Bacteria (Auto) 1+ Urine Pathogenic Casts 1-5 GRANULAR CASTS /lpf Bedside Glucose 107 mg/dl Neutrophils (%) (Auto) 57.4 % Lymphocytes (%) (Auto) 28.9 % Monocytes (%) (Auto) 9.5 % Eosinophils (%) (Auto) 3.7 % Basophils (%) (Auto) 0.3 % Neutrophils # (Auto) 3.57 K/uL Lymphocytes # (Auto) 1.80 K/uL Monocytes # (Auto) 0.59 K/uL Eosinophils # (Auto) 0.23 K/uL Basophils # (Auto) 0.02 K/uL Immature Granulocyte % (Auto) 0.2 % Immature Granulocyte # (Auto) 0.01 K/uL Magnesium Level 2.2 mg/dl Test 03/29/16 06:03 03/29/16 11:51 Bedside Glucose 96 mg/dl 103 mg/dl Impression Patient is a 60 year old female with fistulizing/penetrating Crohn's disease not on any medications admitted with recurrence of partial SBO and imaging consistent with terminal ileal inflammation. She has significant IBD which is untreated at present secondary to insurance issues. She needs to be seen by elementary school social worker prior to discharge. The PSBO is resolving with bowel rest. She needs IV steroids. Would also continue the antibiotics for now. Ideally, she should be on a TNF inhibitor like Remicade or Humira or Cimzia. PPD placed during last admission. Plan Continue with bowel rest IVF hydration Please start IV steroids. Continue with antibiotics.
[2016-03-29] MEDS: PANTOprazole INJ 40 MG in SYRINGE 0 ML IV SCH (14:22)
[2016-03-29 15:20] VITALS: BP 103/68; PULSE 67; TEMP 36.6; O2SAT 95
[2016-03-29] MEDS ORDERED: NURSING DECISION MEDICATION ORDER SCH (18:00)
--- NOTE | 2016-03-29 18:03 | Progress Note ---
Subjective Date of Service: Mar 29, 2016. Subjective Pt evaluation today including: conversation w/ patient, physical exam, chart review, lab review, review of inpatient medication list Problem List Medical Problems: (1) Diarrhea Status: Acute (2) Fistula of intestine, excluding rectum and anus Status: Acute (3) Small bowel obstruction Status: Acute Review of Systems Constitutional: No chills, No fatigue, No fever, No problem reported, No see HPI, No sweats, No weakness, No weight loss Eyes: No diplopia, No discharge, No eye pain, No problem reported, No redness, No see HPI, No worsening of vision ENT: No dental problems, No hearing loss, No nasal symptoms, No problem reported, No see HPI, No sore throat, No tinnitus, No trouble swallowing, No unusual epistaxis Respiratory: No cough, No dyspnea at rest, No dyspnea on exertion, No hemoptysis, No problem reported, No see HPI, No shortness of breath, No sputum, No wheezing Cardiac: No PND, No chest pain, No claudication, No edema, No orthopnea, No palpitations, No problem reported, No see HPI Abdomen: + constipation, + pain, No GI bleeding, No diarrhea, No nausea, No problem reported, No see HPI, No vomiting Musculoskeletal: No calf pain, No joint pain, No muscle pain, No problem reported, No see HPI, No swelling Neurologic: No balance problems, No memory loss, No numbness/tingling, No paralysis, No problem reported, No see HPI, No vertigo, No weakness Psychiatric: No anhedonism, No anxiety, No depression symptoms, No insomnia, No problem reported, No see HPI, No substance abuse Endo: No excessive thirst, No excessive urination, No fatigue, No problem reported, No see HPI Skin: No bleeding, No color change, No itch, No new/changing skin lesions, No problem reported, No rash, No see HPI Objective Vital Signs Date Time Temp Pulse Resp B/P Pulse Ox O2 Delivery O2 Flow Rate FiO2 03/29/16 15:20 36.6 67 18 103/68 95 Room Air 03/29/16 07:45 Room Air 03/29/16 07:41 36.5 66 16 109/69 96 Room Air 03/29/16 00:05 Room Air 03/28/16 23:37 36.8 73 16 114/76 94 Room Air 03/28/16 19:30 36.7 86 20 119/79 97 Room Air 03/28/16 18:59 88 18 118/96 94 Room Air 03/28/16 18:15 97 Room Air Physical Exam General Appearance: WD/WN, no apparent distress Eyes: normal inspection, EOMI ENT: normal ENT inspection, hearing grossly normal, TMs normal Neck: supple Respiratory/Chest: chest non-tender, lungs clear, normal breath sounds, no respiratory distress, no accessory muscle use Cardiovascular: regular rate, rhythm, no edema, no gallop, no JVD, no murmur Abdomen: normal bowel sounds, non tender, soft, no organomegaly Extremities: normal range of motion, non-tender, normal inspection, no pedal edema, no calf tenderness Neurologic/Psychiatric: body 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 as tested, no motor/sensory deficits, alert, normal mood/affect, oriented x 3 Skin: normal color, warm/dry, no rash Laboratory Results Last 24 Hours Test 03/28/16 23:58 03/29/16 05:25 03/29/16 06:03 03/29/16 11:51 Bedside Glucose 107 mg/dl 96 mg/dl 103 mg/dl White Blood Count 6.22 K/uL Red Blood Count 4.56 M/uL Hemoglobin 14.5 g/dL Hematocrit 41.9 % Mean Corpuscular Volume 91.9 fL Mean Corpuscular Hemoglobin 31.8 pg Mean Corpuscular Hemoglobin Concent 34.6 g/dl Platelet Count 262 K/uL Mean Platelet Volume 9.7 fL Neutrophils (%) (Auto) 57.4 % Lymphocytes (%) (Auto) 28.9 % Monocytes (%) (Auto) 9.5 % Eosinophils (%) (Auto) 3.7 % Basophils (%) (Auto) 0.3 % Neutrophils # (Auto) 3.57 K/uL Lymphocytes # (Auto) 1.80 K/uL Monocytes # (Auto) 0.59 K/uL Eosinophils # (Auto) 0.23 K/uL Basophils # (Auto) 0.02 K/uL RDW Standard Deviation 42.5 fL RDW Coefficient of Variation 12.7 % Immature Granulocyte % (Auto) 0.2 % Immature Granulocyte # (Auto) 0.01 K/uL Sodium Level 140 mmol/L Potassium Level 3.8 mmol/L Chloride Level 106 mmol/L Carbon Dioxide Level 25 mmol/L Anion Gap 9.0 mmol/L Blood Urea Nitrogen 16 mg/dl Creatinine 0.98 mg/dl Est Creatinine Clear Calc Drug Dose 77.8 ml/min Estimated GFR () 72.2 Estimated GFR (Non- 62.3 BUN/Creatinine Ratio 16.5 Random Glucose 90 mg/dl Calcium Level 8.3 mg/dl Magnesium Level 2.2 mg/dl Total Bilirubin 0.5 mg/dl Direct Bilirubin 0.1 mg/dl Aspartate Amino Transf (AST/SGOT) 13 U/L Alanine Aminotransferase (ALT/SGPT) 16 U/L Alkaline Phosphatase 88 U/L Total Protein 5.9 gm/dl Albumin 2.7 gm/dl Test 03/29/16 16:51 Bedside Glucose 95 mg/dl Assessment and Plan 60 year old female with PMHx of Crohn's disease/IBD complicated with fistulizing /penetrating presented with recurrent partial SBO and terminal ileal inflammation. She has significant which is untreated at present secondary to insurance issues. She needs to be seen by case management social worker prior to discharge. PSBO / improving continue bowel rest. Continue IVF hydration if remains NPO by tomorrow , consider TPN/PPN pain mangement Possible Crohn's flare start IV steroids as per GI Consider TNF inhibitor as an out patient Terminal ilietis on CT scan with Hx of fistulas improved on zosyn, continue zosyn for now check procalcitonin heparin for dvt prophylaxis
[2016-03-29 20:00] VITALS: O2SAT 95
[2016-03-29] MEDS: METHYLPREDNISOLONE IV 80 MG in SYRINGE 0 ML IV SCH (22:02)
[2016-03-29] MEDS: CLOTRIMAZOLE VAG CR 45 GM TUBE PV SCH (22:02)
[2016-03-29 22:57] LABS: HEMATOCRIT 42.5 % (37-47); MEAN CELL VOLUME 89.9 fL (80-100); MEAN CORPUSCULAR HEMOGLOBIN 31.5 pg (25-34); MEAN CORPUSCULAR HGB CONC 35.1 g/dl (32-36); MEAN PLATELET VOLUME 9.3 fL (7.4-10.4); PLATELET COUNT 282 K/uL (130-400); RED BLOOD COUNT 4.73 M/uL (4.2-5.4); WHITE BLOOD COUNT 7.44 K/uL (4.8-10.8)
[2016-03-29 23:22] VITALS: BP 116/74; PULSE 71; TEMP 36.6; O2SAT 95
[2016-03-29 23:53] LABS: PROTHROMBIN TIME (PATIENT) 10.7 SECONDS (9.0-12.0)
[2016-03-30] MEDS: ACETAMINOPHEN IV 100 ML IV PRN (00:23)
[2016-03-30] MEDS: METHYLPREDNISOLONE IV 80 MG in SYRINGE 0 ML IV SCH ×4 (03:40→21:40)
[2016-03-30] MEDS: PIPERACILL/TAZOBAC IV 4.5 GM in DEXTROSE 5% 100ML IV SCH ×3 (03:40→21:39)
[2016-03-30] MEDS: NSS + 20MEQ KCL 1000ML 1,000 ML IV SCH ×3 (03:40→21:42)
[2016-03-30] MEDS: HEPARIN SOD 5000 UNIT/0.5 ML CARP SQ SCH ×3 (05:59→21:41)
[2016-03-30 06:30] LABS: BASO % 0.2 %; BASO ABS # 0.01 K/uL (0-0.2); COMPLETE YES; HEMATOCRIT 40.5 % (37-47); IG% 0.2 %; LYMPH % 13.1 %; LYMPH ABS # 0.57 K/uL (1.2-3.4); MEAN CELL VOLUME 89.4 fL (80-100); MEAN CORPUSCULAR HEMOGLOBIN 31.6 pg (25-34); MEAN CORPUSCULAR HGB CONC 35.3 g/dl (32-36); MEAN PLATELET VOLUME 9.4 fL (7.4-10.4); MONO % 0.2 %; NEUT % 86.3 %; PLATELET COUNT 262 K/uL (130-400); RED BLOOD COUNT 4.53 M/uL (4.2-5.4); WHITE BLOOD COUNT 4.36 K/uL (4.8-10.8)
[2016-03-30 06:38] LABS: PROTHROMBIN TIME (PATIENT) 10.9 SECONDS (9.0-12.0)
[2016-03-30 07:09] LABS: ALT/SGPT 16 U/L (12-78); AST/SGOT 9 U/L (15-37); BLOOD UREA NITROGEN 6 mg/dl (7-18); CALCIUM 8.6 mg/dl (8.5-10.1); CARBON DIOXIDE 20 mmol/L (21-32); CHLORIDE 108 mmol/L (98-107); CREATININE 0.91 mg/dl (0.60-1.20); GLUCOSE 166 mg/dl (70-99); MAGNESIUM 2.1 mg/dl (1.8-2.4); POTASSIUM 4.1 mmol/L (3.5-5.1); SODIUM 139 mmol/L (136-145)
[2016-03-30 07:12] VITALS: BP 109/58; PULSE 68; TEMP 36.7; O2SAT 96
[2016-03-30 07:14] LABS: ALB/GLOB RATIO 0.8 (0.9-2); ALKALINE PHOSPHATASE 82 U/L (45-117); PHOSPHORUS 2.8 mg/dl (2.5-4.9)
--- NOTE | 2016-03-30 08:03 | Hospitalist Progress Note ---
Hospitalist Progress Note Date of Service Mar 30, 2016. (Marilu Shepard PA-C) Subjective Pt evaluation today including: conversation w/ patient, physical exam, chart review, lab review, review of studies, review of inpatient medication list Pain: None PO Intake: Good, liquid diet Voiding: no voiding problems The patient was seen and examined this morning. Pt reports doing well today, she would like to advance her diet as she is feeling hungry and tolerating liquid diet. She is is having BM with loose stools, but denies diarrhea. Pt denies abdominal pain, fever, chills, sweats. Pt is ambulating without assistance. From home, states she has a ride to go home after 4 pm when discharge is decided on. All Other Systems: Reviewed and Negative (other than listed in HPI) (Marilu Shepard PA-C) Objective Vital Signs Date Time Temp Pulse Resp B/P Pulse Ox O2 Delivery O2 Flow Rate FiO2 03/30/16 07:12 36.7 68 19 109/58 96 Room Air 03/30/16 07:09 Room Air 03/30/16 00:20 Room Air 03/29/16 23:22 36.6 71 14 116/74 95 Room Air 03/29/16 20:00 95 Room Air 03/29/16 15:20 36.6 67 18 103/68 95 Room Air (Marilu Shepard PA-C) Physical Exam General Appearance: WD/WN, no apparent distress, + obese ENT: hearing grossly normal, pharynx normal Neck: no adenopathy, no JVD Respiratory/Chest: lungs clear, no respiratory distress, no accessory muscle use Cardiovascular: regular rate, rhythm, no murmur Abdomen: normal bowel sounds, non tender, soft Extremities: non-tender, no pedal edema, no calf tenderness Neurologic/Psychiatric: alert, normal mood/affect, oriented x 3 Skin: normal color, warm/dry (Marilu Shepard PA-C) Laboratory Results Last 24 Hours Test 03/29/16 11:51 03/29/16 16:51 03/29/16 19:20 03/29/16 20:58 Bedside Glucose 103 mg/dl 95 mg/dl 88 mg/dl Procalcitonin 0.05 ng/mL Test 03/29/16 22:20 03/30/16 06:11 White Blood Count 7.44 K/uL 4.36 K/uL Red Blood Count 4.73 M/uL 4.53 M/uL Hemoglobin 14.9 g/dL 14.3 g/dL Hematocrit 42.5 % 40.5 % Mean Corpuscular Volume 89.9 fL 89.4 fL Mean Corpuscular Hemoglobin 31.5 pg 31.6 pg Mean Corpuscular Hemoglobin Concent 35.1 g/dl 35.3 g/dl RDW Standard Deviation 40.8 fL 40.1 fL RDW Coefficient of Variation 12.5 % 12.4 % Platelet Count 282 K/uL 262 K/uL Mean Platelet Volume 9.3 fL 9.4 fL Prothrombin Time 10.7 SECONDS 10.9 SECONDS Prothromb Time International Ratio 1.0 1.0 Neutrophils (%) (Auto) 86.3 % Lymphocytes (%) (Auto) 13.1 % Monocytes (%) (Auto) 0.2 % Eosinophils (%) (Auto) 0.0 % Basophils (%) (Auto) 0.2 % Neutrophils # (Auto) 3.76 K/uL Lymphocytes # (Auto) 0.57 K/uL Monocytes # (Auto) 0.01 K/uL Eosinophils # (Auto) 0.00 K/uL Basophils # (Auto) 0.01 K/uL Immature Granulocyte % (Auto) 0.2 % Immature Granulocyte # (Auto) 0.01 K/uL Sodium Level 139 mmol/L Potassium Level 4.1 mmol/L Chloride Level 108 mmol/L Carbon Dioxide Level 20 mmol/L Anion Gap 11.0 mmol/L Blood Urea Nitrogen 6 mg/dl Creatinine 0.91 mg/dl Est Creatinine Clear Calc Drug Dose 83.8 ml/min Estimated GFR () 78.9 Estimated GFR (Non- 68.1 BUN/Creatinine Ratio 7.0 Random Glucose 166 mg/dl Lactic Acid Level 1.5 mmol/L Calcium Level 8.6 mg/dl Phosphorus Level 2.8 mg/dl Magnesium Level 2.1 mg/dl Total Bilirubin 0.4 mg/dl Direct Bilirubin < 0.1 mg/dl Aspartate Amino Transf (AST/SGOT) 9 U/L Alanine Aminotransferase (ALT/SGPT) 16 U/L Alkaline Phosphatase 82 U/L Total Protein 6.2 gm/dl Albumin 2.8 gm/dl Globulin 3.4 gm/dl Albumin/Globulin Ratio 0.8 (Marilu Shepard PA-C) Assessment and Plan 60 year old female with PMHx of Crohn's disease/IBD complicated with fistulizing /penetrating presented with recurrent partial SBO and terminal ileal inflammation. Largely untreated at present secondary to insurance issues. Partial SBO - Tolerating liquid diet, will advance today and see if she tolerates it. Pt reports moving flatus and has some loose stools, denies diarrhea. - Cont IV zosyn for now (day 2) - D/c ivfs since tolerating oral intake. - pain management - pt currently has no pain, doing well with tylenol alone, no other narcotics needed. Possible Crohn's flare - cont solumedrol 40 mg BID as tapering down per GI - appreciate recs. Will plan taper to po Prednisone on discharge for an 8 week course beginning at 40 mg and tapering by 5 mg weekly for a total of 8 weeks. - Patient needs outpatient follow-up and initiation of biologic therapy once insurance is arranged. Terminal ilieitis on CT scan with Hx of fistulas - improved on zosyn, continue zosyn for now (day 2) will change to oral abx upon d/c to complete a week long course - procalcitonin negative = 0.05 Tobacco Abuse - Cont nicotine patch 21 mcg for now. - Cessation encouraged DVT ppx: heparin SQ CODE STATUS: FULL CODE Disposition: From home, likely discharge today or tomorrow pending toleration of diet, set up of social service. (Marilu Shepard PA-C) GEORGINA Physician Supervision Note: I interviewed and examined the patient. Discussed with Patricia Shepard PAC and agree with findings and plan as documented in the note. Any exceptions or clarifications are listed here: None Chrons flare improving with steroid taper, attempting to advance diet and if tolerated home soon VSS abd is soft mild diffuse tenderness if tolerates full diet will have home on long steroid taper, and follow up to consider biologic agent thru gastroenterology Documented By: Marlon Fowler (Marlon Fowler M.D.)
--- NOTE | 2016-03-30 08:05 | Surgery Progress Note ---
Surgery Progress Note Date of Service Mar 30, 2016. Subjective + bowel movement (loose), + diet (clears), + feeling well, No nausea Objective Vital Signs: Date Time Temp Pulse Resp B/P Pulse Ox O2 Delivery O2 Flow Rate FiO2 03/30/16 07:12 36.7 68 19 109/58 96 Room Air 03/30/16 07:09 Room Air 03/30/16 00:20 Room Air 03/29/16 23:22 36.6 71 14 116/74 95 Room Air 03/29/16 20:00 95 Room Air 03/29/16 15:20 36.6 67 18 103/68 95 Room Air Abdomen: non tender, non distended, soft Laboratory Results: Results Past 24 Hours Test 03/29/16 11:51 03/29/16 16:51 03/29/16 19:20 03/29/16 20:58 Range/Units Bedside Glucose 103 95 88 70-90 mg/dl Procalcitonin 0.05 0-0.5 ng/mL Test 03/29/16 22:20 03/30/16 06:11 Range/Units White Blood Count 7.44 4.36 4.8-10.8 K/uL Red Blood Count 4.73 4.53 4.2-5.4 M/uL Hemoglobin 14.9 14.3 12.0-16.0 g/dL Hematocrit 42.5 40.5 37-47 % Mean Corpuscular Volume 89.9 89.4 80-100 fL Mean Corpuscular Hemoglobin 31.5 31.6 25-34 pg Mean Corpuscular Hemoglobin Concent 35.1 35.3 32-36 g/dl RDW Standard Deviation 40.8 40.1 36.4-46.3 fL RDW Coefficient of Variation 12.5 12.4 11.5-14.5 % Platelet Count 282 262 130-400 K/uL Mean Platelet Volume 9.3 9.4 7.4-10.4 fL Prothrombin Time 10.7 10.9 9.0-12.0 SECONDS Prothromb Time International Ratio 1.0 1.0 0.9-1.1 Neutrophils (%) (Auto) 86.3 % Lymphocytes (%) (Auto) 13.1 % Monocytes (%) (Auto) 0.2 % Eosinophils (%) (Auto) 0.0 % Basophils (%) (Auto) 0.2 % Neutrophils # (Auto) 3.76 1.4-6.5 K/uL Lymphocytes # (Auto) 0.57 1.2-3.4 K/uL Monocytes # (Auto) 0.01 0.11-0.59 K/uL Eosinophils # (Auto) 0.00 0-0.5 K/uL Basophils # (Auto) 0.01 0-0.2 K/uL Immature Granulocyte % (Auto) 0.2 % Immature Granulocyte # (Auto) 0.01 0.00-0.02 K/uL Sodium Level 139 136-145 mmol/L Potassium Level 4.1 3.5-5.1 mmol/L Chloride Level 108 98-107 mmol/L Carbon Dioxide Level 20 21-32 mmol/L Anion Gap 11.0 3-11 mmol/L Blood Urea Nitrogen 6 7-18 mg/dl Creatinine 0.91 0.60-1.20 mg/dl Est Creatinine Clear Calc Drug Dose 83.8 ml/min Estimated GFR () 78.9 Estimated GFR (Non- 68.1 BUN/Creatinine Ratio 7.0 10-20 Random Glucose 166 70-99 mg/dl Lactic Acid Level 1.5 0.4-2.0 mmol/L Calcium Level 8.6 8.5-10.1 mg/dl Phosphorus Level 2.8 2.5-4.9 mg/dl Magnesium Level 2.1 1.8-2.4 mg/dl Total Bilirubin 0.4 0.2-1 mg/dl Direct Bilirubin < 0.1 0-0.2 mg/dl Aspartate Amino Transf (AST/SGOT) 9 15-37 U/L Alanine Aminotransferase (ALT/SGPT) 16 12-78 U/L Alkaline Phosphatase 82 45-117 U/L Total Protein 6.2 6.4-8.2 gm/dl Albumin 2.8 3.4-5.0 gm/dl Globulin 3.4 2.5-4.0 gm/dl Albumin/Globulin Ratio 0.8 0.9-2 Assessment & Plan Crohn's, PSBO improving can start full liquids
[2016-03-30] MEDS: CLOTRIMAZOLE VAG CR 45 GM TUBE PV SCH ×2 (09:00→15:31)
[2016-03-30] MEDS: INSULIN ASPART 100 UNITS/ML 3 ML PEN SC SCH ×2 (09:04→13:33)
[2016-03-30] MEDS ORDERED: FLUCONAZOLE 50 MG TAB PO ONE (09:15)
--- NOTE | 2016-03-30 10:05 | Gastroenterology Progress Note ---
Progress Note Date of Service: Mar 30, 2016 Subjective Pt evaluation today including: conversation w/ patient, physical exam, lab review, review of studies Follow-up of 60 yo female hospitalized with a Crohn's flare & SBO. The patient was recently diagnosed with fistulizing/penetrating small bowel Crohn's disease. She has not followed up in the office or pursued recommendations of biologic therapy due to lack of insurance. She reports improvement of her abdominal pain this AM. She is eating clear liquids at the time of my visit. She reports she plans to move to [facility] so that she can move out of her mobile home with a leaky roof & get health insurance. She offers no further complaints at present. She is hopeful to return home because her birthday is this week. Review of Systems Constitutional: No chills, No fever Respiratory: No cough, No shortness of breath Cardiac: No chest pain Abdomen: + pain (improving), No GI bleeding, No constipation, No diarrhea, No nausea, No vomiting Musculoskeletal: No problem reported Skin: No problem reported Medications Current Inpatient Medications Medications (Trade) Dose Ordered Sig/Rachael Route Start Time Stop Time Status Last Admin Dose Admin Lorazepam (Ativan Inj) 0.5 mg Q4H PRN IV 03/28/16 18:15 04/27/16 18:14 Diphenhydramine HCl 25 mg 25 mg Q4H PRN IV 03/28/16 18:15 04/27/16 18:14 Promethazine HCl/ Sodium Chloride (Phenergan Inj/ Nss 50ml) 50.5 ml @ 202 mls/hr Q4H PRN IV 03/28/16 18:15 04/27/16 18:14 Zolpidem Tartrate (Ambien Tab) 5 mg HSZ PRN PO 03/28/16 18:15 04/27/16 18:14 Ondansetron HCl (Zofran Inj) 4 mg Q6H PRN IV 03/28/16 18:15 04/27/16 18:14 03/29/16 20:31 4 MG Morphine Sulfate (MoRPHine SULFATE INJ) 2 mg Q2H PRN IV 03/28/16 18:15 04/11/16 18:14 Morphine Sulfate 4 mg 4 mg Q2H PRN IV 03/28/16 18:15 04/11/16 18:14 Potassium Chloride/Sodium Chloride 1,000 ml @ 100 mls/hr Q10H IV 03/28/16 21:00 04/27/16 20:59 03/30/16 03:40 100 MLS/HR Pantoprazole Sodium 40 mg/ Syringe 10 ml @ 5 mls/min DAILY@11 IV 03/29/16 11:00 04/28/16 10:59 03/29/16 14:22 5 MLS/MIN Acetaminophen (Ofirmev Iv) 100 ml @ 400 mls/hr Q8H PRN IV 03/28/16 18:15 04/27/16 18:14 03/30/16 00:23 400 MLS/HR Glucose (Glucose 40% Gel) UD PRN PO 03/28/16 18:15 04/27/16 18:14 Glucose (Glucose Chew Tab) 1 tabs UD PRN PO 03/28/16 18:15 04/27/16 18:14 Dextrose (Dextrose 50% 50ML Syringe) 50 ml UD PRN IV 03/28/16 18:15 04/27/16 18:14 Glucagon 1 mg 1 mg UD PRN SQ 03/28/16 18:15 04/27/16 18:14 Piperacillin Sod/ Tazobactam Sod/ Dextrose (Zosyn Iv/D5 100ml) 120 ml @ 30 mls/hr Q8H IV 03/29/16 04:00 04/08/16 03:59 03/30/16 03:40 30 MLS/HR Piperacillin Sod/ Tazobactam Sod (Consult) 1 ea UD PRN N/A 03/28/16 21:15 04/27/16 21:14 Nicotine 1 patch 1 patch DAILY PRN TD 03/29/16 03:00 04/28/16 02:59 03/29/16 09:10 1 PATCH Methylprednisolone Sodium Succinate/ Syringe (Solu-Medrol IV/ Syringe) 1.28 ml @ 1.5 mls/min Q6H IV 03/29/16 22:00 04/28/16 21:59 03/30/16 09:36 1.5 MLS/MIN Heparin Sodium (Porcine) (Heparin Sq 5000 Unit/0.5ml) 5,000 unit Q8 SQ 03/30/16 06:00 04/29/16 05:59 03/30/16 05:59 5,000 UNIT Clotrimazole (Clotrimazole Vag Crm) 1 appln BID PV 03/29/16 21:00 04/05/16 20:59 03/29/16 22:02 1 APPLN Insulin Aspart (novoLOG ASPART) SLIDING SCALE If C... ACHS SC 03/30/16 08:00 04/29/16 07:59 Objective Vital Signs Date Time Temp Pulse Resp B/P Pulse Ox O2 Delivery O2 Flow Rate FiO2 03/30/16 07:12 36.7 68 19 109/58 96 Room Air 03/30/16 07:09 Room Air 03/30/16 00:20 Room Air 03/29/16 23:22 36.6 71 14 116/74 95 Room Air 03/29/16 20:00 95 Room Air 03/29/16 15:20 36.6 67 18 103/68 95 Room Air Physical Exam General Appearance: WD/WN, no apparent distress Eyes: normal inspection, PERRL Respiratory/Chest: lungs clear, normal breath sounds Cardiovascular: regular rate, rhythm Abdomen: normal bowel sounds, non tender, soft Extremities: non-tender Neurologic/Psych: alert, oriented x 3 Skin: normal color Laboratory Results Last 24 Hours Test 03/29/16 11:51 03/29/16 16:51 03/29/16 19:20 03/29/16 20:58 Bedside Glucose 103 mg/dl 95 mg/dl 88 mg/dl Procalcitonin 0.05 ng/mL Test 03/29/16 22:20 03/30/16 06:11 03/30/16 09:00 White Blood Count 7.44 K/uL 4.36 K/uL Red Blood Count 4.73 M/uL 4.53 M/uL Hemoglobin 14.9 g/dL 14.3 g/dL Hematocrit 42.5 % 40.5 % Mean Corpuscular Volume 89.9 fL 89.4 fL Mean Corpuscular Hemoglobin 31.5 pg 31.6 pg Mean Corpuscular Hemoglobin Concent 35.1 g/dl 35.3 g/dl RDW Standard Deviation 40.8 fL 40.1 fL RDW Coefficient of Variation 12.5 % 12.4 % Platelet Count 282 K/uL 262 K/uL Mean Platelet Volume 9.3 fL 9.4 fL Prothrombin Time 10.7 SECONDS 10.9 SECONDS Prothromb Time International Ratio 1.0 1.0 Neutrophils (%) (Auto) 86.3 % Lymphocytes (%) (Auto) 13.1 % Monocytes (%) (Auto) 0.2 % Eosinophils (%) (Auto) 0.0 % Basophils (%) (Auto) 0.2 % Neutrophils # (Auto) 3.76 K/uL Lymphocytes # (Auto) 0.57 K/uL Monocytes # (Auto) 0.01 K/uL Eosinophils # (Auto) 0.00 K/uL Basophils # (Auto) 0.01 K/uL Immature Granulocyte % (Auto) 0.2 % Immature Granulocyte # (Auto) 0.01 K/uL Sodium Level 139 mmol/L Potassium Level 4.1 mmol/L Chloride Level 108 mmol/L Carbon Dioxide Level 20 mmol/L Anion Gap 11.0 mmol/L Blood Urea Nitrogen 6 mg/dl Creatinine 0.91 mg/dl Est Creatinine Clear Calc Drug Dose 83.8 ml/min Estimated GFR () 78.9 Estimated GFR (Non- 68.1 BUN/Creatinine Ratio 7.0 Random Glucose 166 mg/dl Lactic Acid Level 1.5 mmol/L Calcium Level 8.6 mg/dl Phosphorus Level 2.8 mg/dl Magnesium Level 2.1 mg/dl Total Bilirubin 0.4 mg/dl Direct Bilirubin < 0.1 mg/dl Aspartate Amino Transf (AST/SGOT) 9 U/L Alanine Aminotransferase (ALT/SGPT) 16 U/L Alkaline Phosphatase 82 U/L Total Protein 6.2 gm/dl Albumin 2.8 gm/dl Globulin 3.4 gm/dl Albumin/Globulin Ratio 0.8 Bedside Glucose 188 mg/dl Assessment and Plan Patient is a 60 yo female admitted with abdominal pain and CT findings of a small bowel obstruction likely related to her untreated fistulizing Crohn's Disease of the small bowel. 1) Social work consult to discuss insurance options. 2) Patient needs outpatient follow-up and initiation of biologic therapy once insurance is arranged. 3) Continue IV Solumedrol 40 mg BID at present. Can taper to po Prednisone on discharge for an 8 week course beginning at 40 mg and tapering by 5 mg weekly for a total of 8 weeks. 4) Appreciate surgery recommendations. 5) Supportive care per primary team. Thank you for allowing us to participate in the care of this patient. If you should have any further questions or concerns, do not hesitate to contact us. Agree with LISA Amador as above Abd: Soft, NT, ND, +BS Continue current therapy Will receive 8 week Prednisone taper to begin at D/C She is to followup in our office as an outpatient to further discuss maintenance management of her disease.
[2016-03-30] MEDS: PANTOprazole INJ 40 MG in SYRINGE 0 ML IV SCH (11:43)
[2016-03-30 12:11] VITALS: BP 135/80; PULSE 72; TEMP 36.5; O2SAT 98
[2016-03-30 15:08] VITALS: BP 151/84; PULSE 73; TEMP 36.6; O2SAT 99
[2016-03-30] MEDS: ACETAMINOPHEN 500 MG TAB PO PRN (16:32)
[2016-03-30] MEDS ORDERED: INSULIN ASPART 100 UNITS/ML 3 ML PEN SC SCH (21:15)
[2016-03-30 23:45] VITALS: BP 119/70; PULSE 63; TEMP 36.5; O2SAT 99
[2016-03-31] MEDS: NICOTINE 21 MG/24 HR TDSY TD PRN (01:47)
[2016-03-31] MEDS: METHYLPREDNISOLONE IV 80 MG in SYRINGE 0 ML IV SCH ×3 (04:21→15:35)
[2016-03-31] MEDS: PIPERACILL/TAZOBAC IV 4.5 GM in DEXTROSE 5% 100ML IV SCH ×2 (04:21→11:17)
[2016-03-31] MEDS: HEPARIN SOD 5000 UNIT/0.5 ML CARP SQ SCH ×2 (05:59→13:29)
[2016-03-31 06:14] LABS: COMPLETE YES; HEMATOCRIT 38.6 % (37-47); IG% 0.3 %; LYMPH % 12.8 %; LYMPH ABS # 0.84 K/uL (1.2-3.4); MEAN CELL VOLUME 90.2 fL (80-100); MEAN CORPUSCULAR HEMOGLOBIN 30.8 pg (25-34); MEAN CORPUSCULAR HGB CONC 34.2 g/dl (32-36); MEAN PLATELET VOLUME 9.5 fL (7.4-10.4); MONO % 2.9 %; PLATELET COUNT 260 K/uL (130-400); RED BLOOD COUNT 4.28 M/uL (4.2-5.4); WHITE BLOOD COUNT 6.54 K/uL (4.8-10.8)
[2016-03-31 06:44] LABS: AST/SGOT 8 U/L (15-37); BLOOD UREA NITROGEN 8 mg/dl (7-18); CALCIUM 8.9 mg/dl (8.5-10.1); CARBON DIOXIDE 23 mmol/L (21-32); CHLORIDE 109 mmol/L (98-107); CREATININE 0.92 mg/dl (0.60-1.20); GLUCOSE 151 mg/dl (70-99); MAGNESIUM 2.1 mg/dl (1.8-2.4); SODIUM 142 mmol/L (136-145)
[2016-03-31 06:48] LABS: ALKALINE PHOSPHATASE 83 U/L (45-117); ALT/SGPT 15 U/L (12-78)
[2016-03-31 07:13] VITALS: BP 131/76; PULSE 64; TEMP 36.8; O2SAT 96
[2016-03-31] MEDS ORDERED: PRED-301 PO (07:43)
--- NOTE | 2016-03-31 07:55 | Discharge Instructions ---
Discharge Instructions Admission Reason for Admission: Crohns Disease, Small Bowel Obstruction Discharge Discharge Diagnosis / Problem: Crohns Flare, Small bowel obstruction Discharge Goals Goal(s): Decrease discomfort, Improve function Activity Recommendations Activity Limitations: resume your previous activity Lifting Limitations: gradually increase as tolerated Exercise/Sports Limitations: gradually increase as tolerated Shower/Bathe: no limitations Driving or Machine Use: do not drive until seen by your family physician for follow up . Instructions / Follow-Up Instructions / Follow-Up You were admitted to [facility] with Crohns flare up and a partial small bowel obstruction. During your stay here you were treated with bowel rest and antibiotics. You were placed on a prednisone taper for Crohns flare which improved your symptoms. Please continue the prednisone taper as instructed below. Continue taking prednisone, starting at 40 mg and reducing by 5 mg every week, for 8 weeks total. Week 1 (starting on 04/01) Take 40 mg, ie. 8 tablets daily Week 2 ( starting 04/08), Take 35 mg, ie, 7 tablets daily Week 3 (starting04/15), Take 30 mg, ie. 6 tablets daily Week 4 (starting 04/22), Take 25 mg daily, ie. 5 tablets daily Week 5 (starting 04/29), Take 20 mg daily, ie. 4 tablets daily Week 6 (starting 05/06), Take 15 mg daily, ie. 3 tablets daily Week 7 (starting 05/13), Take 10 mg daily, ie 2 tablets daily Week 8 (starting 05/20), Take 5 mg daily, ie 1 tablets daily You need to follow up with GI within 2 weeks to discuss starting a medication which will help you Crohn's flares for longer term. An appointment will be scheduled for you. Follow up with your PCP within 1 week. Current Hospital Diet Patient's current hospital diet: AHA Diet (Heart Healthy), Low Fiber Diet Discharge Diet Recommended Diet: AHA Diet (Heart Healthy) Procedures Procedures Performed: None Pending Studies Studies pending at discharge: no Medical Emergencies . Who to Call and When: Medical Emergencies: If at any time you feel your situation is an emergency, please call 911 immediately. . Non-Emergent Contact Non-Emergency issues call your: Primary Care Provider Call Non-Emergent contact if: temperature is above 100.5, your pain is not controlled, your pain is worsening, your pain is concerning you, you have any medication questions If you develop chest pain, shortness of breath, worsening abdominal pain, black or tarry stools, nausea or vomiting, bright red blood per rectum, lightheadedness, dizziness or if you have other concerns with your health. . Past History Medical & Surgical History: (1) Crohns disease (2) SBO (small bowel obstruction) . "Provider Documentation" section prepared by Patricia Shepard. VTE Core Measure Inpt VTE Proph given/why not?: SCD's
--- NOTE | 2016-03-31 08:04 | Discharge Summary ---
Discharge Summary Admission Date: Mar 28, 2016 at 18:23 Discharge Date: Mar 31, 2016 Discharge Disposition: Home Principal Diagnosis: Crohns Flare, partial small bowel obstruction Problems/Secondary Diagnoses: terminal ilieitis, chronic tobacco abuse Procedures: ABDOMEN AND PELVIS CT WITHOUT CONTRAST CT DOSE: 1657.46 mGy.cm HISTORY: Nausea and vomiting. Generalized abdominal pain. TECHNIQUE: Multiaxial CT images of the abdomen and pelvis were performed without contrast. COMPARISON STUDY: Abdomen and pelvis CT 09/11/2015. FINDINGS: The lung bases are clear. No pneumoperitoneum. No pneumatosis. The unenhanced liver, spleen, kidneys, pancreas, and adrenal glands are unremarkable. Small amount of gallbladder sludge is suspected. No gallbladder wall thickening. No retroperitoneal lymphadenopathy. The bladder is not well-distended but appears unremarkable. The uterus and bilateral ovaries are within normal limits. Colonic diverticulosis. The colon is decompressed. Moderate thickening involving a short segment of the distal ileum located within the anterior mid abdomen. There is associated adjacent fat stranding. This is progressed compared to the prior studies. This results in a transition point of a small bowel obstruction. The small bowel proximal to this area are distended up to 6.6 cm. However, the proximal jejunal loops are decompressed with a possible second proximal transition point on image 74 of 100. Therefore, this raises the possibility of a closed loop obstruction. There is mild mesenteric edema. Evaluation for bowel pathology is suboptimal due to lack of intravenous and oral contrast. IMPRESSION: Multiple markedly distended loops of mid to distal small bowel with both distal and proximal transition points as described above. Therefore, this raises the possibility of a closed loop obstruction. The distal transition point is due to a thickened loop of distal ileum with adjacent fat stranding. This could be due to an infectious or inflammatory ileitis. Overall, this has progressed compared to the prior examination. The proximal transition point etiology is uncertain and could be due to an adhesion. Findings were discussed with Dr. Frey at 5:30 PM on 03/28/2016. Electronically signed by: Deejay Jin M.D. 03/28/2016 5:29 PM Dictated Date/Time: 03/28/2016 5:17 PM The status of this report is Signed. KUB CLINICAL HISTORY: SBO obstruction COMPARISON STUDY: CT dated 03/28/2016 FINDINGS: Findings of a distal partial small bowel obstructive change. Slight decrease in distention compared to the prior exam. Slight increase in colonic gas. IMPRESSION: Distal small bowel obstructive change slightly improved from the prior CT exam. Electronically signed by: Barrie Kurtz M.D. 03/29/2016 10:04 AM Dictated Date/Time: 03/29/2016 10:03 AM The status of this report is Signed. Consultations: General Surg Gastroenterology (Marilu Shepard PA-C) Medication Reconciliation New Medications: Prednisone (Prednisone) 5 Mg Tab 5 MG PO DAILY, #251 TAB Take 40 mg daily x 1 week. Reduce taper by 5 mg every week, for 8 weeks total. See discharge instructions for details. Continued Medications: Aspirin (Aspirin Ec) 81 Mg Tab 81 MG PO DAILY Cyanocobalamin (Vitamin B12) 1,000 Mcg Tab 1000 MCG PO DAILY Ferrous Sulfate (Iron) 325 Mg Tab 325 MG PO DAILY Methylcellulose (Laxative) (Citrucel) 500 Mg Tab 500 MG PO TID Discharge Exam The patient was seen and examined this morning. Pt reports doing well this morning and is anticipating going home. She denies abdominal pain, tolerating regular diet, and is having formed bowel movements (2) since yesterday. She denies diarrhea or constipation. She reports not having insurance but that in 2 months she will, discussion was held regarding follow up and will plan to see GI at that time. Review of Systems: Constitutional: No fever Eyes: No problem reported ENT: No problem reported Respiratory: No dyspnea at rest, No dyspnea on exertion, No shortness of breath Cardiovascular: No chest pain, No palpitations Abdomen: No GI bleeding, No constipation, No diarrhea, No nausea, No pain, No vomiting Musculoskeletal: No joint pain, No swelling Genitourinary - Female: No dysuria, No vaginal discharge Neurologic: No numbness/tingling Physical Exam: General Appearance: WD/WN, no apparent distress, + obese Eyes: PERRL, EOMI ENT: hearing grossly normal, pharynx normal Neck: supple, no JVD Respiratory/Chest: lungs clear, normal breath sounds, no respiratory distress, no accessory muscle use Cardiovascular: regular rate, rhythm, normal peripheral pulses Abdomen / GI: normal bowel sounds, non tender, soft, + pertinent finding ( obese) Extremities: no calf tenderness, normal capillary refill Neurologic/Psychiatric: alert, normal mood/affect, oriented x 3 Skin: normal color, warm/dry (Marilu Shepard PA-C) Hospital Course H&P per Joselo Navas M.D. Source: patient The patient is a 60-year-old female who presents emergency department with worsening abdominal pain that began 3 days prior to arrival. She has been seen in August 2015 at this hospital for similar symptoms, during that visit underwent a colonoscopy no diagnosed with Crohn's disease, for which she is not on any present treatment. She reports that she's had 8 bowel blockages since November, and has been at [facility] and [facility] during that time. Her symptoms this time are worse in that she has had vomiting 5 times within the past hour. She reports that she's lost 60 pounds during the past year. Physical Exam Vital Signs Date Time Temp Pulse Resp B/P Pulse Ox O2 Delivery O2 Flow Rate FiO2 03/28/16 18:59 88 18 118/96 94 Room Air 03/28/16 18:15 97 Room Air 03/28/16 17:35 87 18 132/85 97 Room Air 03/28/16 15:14 36.6 88 20 117/75 94 Room Air The patient is awake, well-developed and adequately nourished, alert and oriented 3, normocephalic and atraumatic, lying in bed and in no acute distress. HEENT--PERRL, EOMI, mucous membranes and oropharynx dry. Neck--supple, no JVD or bruits, thyroid normal, trachea midline, no adenopathy. Heart--normal S1 and S2, no extra beats, no murmurs, rubs or gallops. Lungs--clear bilaterally with good air movement, no respiratory distress, no accessory muscle use. Abdomen--decreased bowel sounds and soft, generalized mild tenderness, and nondistended. Extremities--no cyanosis, clubbing or edema. There are good distal pulses b/l. Dermatologic--normal skin turgor, normal color, warm and dry, no abnormal lymph nodes, no rash. Neurologic--cranial nerves II through XII grossly intact, motor and sensory examination normal. Rheumatologic--normal range of motion, nontender, muscles and joints. Psychiatric--normal affect. Hospital Course 60 year old female with PMHx of Crohn's disease/IBD complicated with fistulizing /penetrating presented with recurrent partial SBO and terminal ileal inflammation. Largely untreated at present secondary to insurance issues. Partial SBO - Pt was started on bowel rest and her abdominal sx improved- she was able to tolerate diet advances at the end of her admission stay. Pt denied abdominal pain is having bowel movements. denies diarrhea. - Cont IV zosyn for now (day 3) - will stop abx at this time as likely Crohns and ilieitis has improved with prednisone course. - D/c ivfs since tolerating oral intake. - pain management - pt currently has no pain, doing well with tylenol alone, no other narcotics needed. Possible Crohn's flare - cont solumedrol 40 mg BID as tapering down per GI - appreciate recs. plan taper to po Prednisone on discharge for an 8 week course beginning at 40 mg and tapering by 5 mg weekly for a total of 8 weeks. - Patient needs outpatient follow-up and initiation of biologic therapy once insurance is arranged. Terminal ilieitis on CT scan with Hx of fistulas - improved on zosyn, continue zosyn for now (day 3) - no need to continue antibiotics with improvement on steroids and no abdominal symptoms. Tolerating diet, having normal bowel movements. - procalcitonin negative = 0.05 Tobacco Abuse - Cont nicotine patch 21 mcg for now. - Cessation encouraged DVT ppx: heparin SQ CODE STATUS: FULL CODE Disposition: From home, discharge today. Total Time Spent: Greater than 30 minutes This includes examination of the patient, discharge planning, medication reconciliation, and communication with other providers. (Marilu Shepard PA-C) GEORGINA Physician Supervision Note: I interviewed and examined the patient. Discussed with Marilu Shepard PAC and agree with findings and plan as documented in the note. Any exceptions or clarifications are listed here: None Pt is feeling well tolerating diet and having stool understands need to be on prednisone taper vss abd is soft and non tender will follow with case as out pt Documented By: Marlon Fowler Total Time Spent: Greater than 30 minutes (Marlon Fowlre M.D.) Discharge Instructions Please refer to the electronic Patient Visit Report (Discharge Instructions) for additional information. (Filipowicz,Marilu G., PA-C) Follow-Up Follow up with your Primary Care Provider within 1 week. Follow up with Gastroenterology within 1-2 weeks. (Marilu Shepard, WILLIE)
[2016-03-31] MEDS: CLOTRIMAZOLE VAG CR 45 GM TUBE PV SCH (08:38)
[2016-03-31] MEDS: NSS + 20MEQ KCL 1000ML 1,000 ML IV SCH (09:12)
[2016-03-31] MEDS: ACETAMINOPHEN 500 MG TAB PO PRN (09:21)
[2016-03-31] MEDS: PANTOprazole INJ 40 MG in SYRINGE 0 ML IV SCH (11:18)
[2016-03-31 12:02] VITALS: BP 126/63; PULSE 64; TEMP 36.7; O2SAT 96
[2016-03-31 12:58] VITALS: BP 126/63; PULSE 64; TEMP 36.7; O2SAT 96
[2016-05-03] MEDS ORDERED: PRED-301 PO (10:33)
[2016-05-03] MEDS ORDERED: LORA-741 PO (10:33)
[2016-06-12] MEDS ORDERED: CMD5 PO (10:25)
[2016-06-12] MEDS ORDERED: LVNIS120 SQ (10:25)
[2016-06-24] MEDS ORDERED: PRED10TA PO (08:11)
[2016-06-24] MEDS ORDERED: CMD/25 PO (12:35)
[2016-07-17] MEDS ORDERED: WARF4TAB PO (11:08)
[2016-07-17] MEDS ORDERED: VTMD1000 PO (11:08)
[2016-07-17] MEDS ORDERED: PRT40 PO (11:08)
[2016-07-17] MEDS ORDERED: NICO14DI9 TD (11:08)
[2016-07-17] MEDS ORDERED: ULT50X PO (11:08)
[2016-07-17] MEDS ORDERED: PRED10TA PO (11:08)
[2016-07-17] MEDS ORDERED: CLC100 PO (11:08)
[2016-07-17] MEDS ORDERED: ADAL40KI SQ (11:13)
[2016-07-31] MEDS ORDERED: PRED10TA PO (10:09)
[2016-08-18] MEDS ORDERED: LVNIS120 SQ (11:43)
[2016-08-18] MEDS ORDERED: CMD75 PO (11:43)
[2016-08-18] MEDS ORDERED: PRD10 PO (11:52)
[2016-08-18] MEDS ORDERED: MRLP17X PO (11:52)
[2016-09-29] MEDS ORDERED: PRD5 PO (09:14)
== END 2016-03-31 15:40 | disposition home or self-care (01) | DRG 386 ==
LOC: ENRESERVDT → ENRESERVTM → C.EDB 15:04 → C.MSW 18:23
PROVIDERS: ADMIT Hospitalist; ATTEND Physician Assistant
DX: K50.012 Crohn's disease of small intestine with intestinal obstruction (principal); F17.210 Nicotine dependence, cigarettes, uncomplicated; Z79.82 Long term (current) use of aspirin; K57.30 Diverticulosis of large intestine without perforation or abscess without bleeding

== ENCOUNTER 2016-04-27 02:01 | Inpatient (IN) | payer OTHER ==
[~2016-04-27] VITALS: Ht 167.6 cm; Wt 102.2 kg
[2016-04-27] VITALS (10 sets, daily range): BP systolic 84–126; BP diastolic 58–76; PULSE 101–112; TEMP 36.3–37.2; O2SAT 92–94; Ht 167.6 cm; Wt 102.2 kg
[~2016-04-27 02:01] MED LIST changes: -CPR500 PO; -MTR500 PO; -NCDT14 TD; +PRED-301 PO; -prednison PO
[2016-04-27] MEDS ORDERED: PRD/1 PO (02:15)
[2016-04-27] MEDS ORDERED: ONDANSETRON INJ 2 MG/ML 2 ML VIAL IV STA ×2 (02:31→03:58)
[2016-04-27] MEDS ORDERED: SODIUM CHLORIDE 0.9% 1000ML 1,000 ML IV STA (02:31)
[2016-04-27] MEDS ORDERED: SODIUM CHLORIDE 0.9% 500ML 500 ML IV STA ×2 (02:31→03:31)
[2016-04-27] MEDS ORDERED: MoRPHine SULFATE 4 MG/ML 1 ML CARP\\VIAL IV STA (02:31)
[2016-04-27 03:12] LABS: BASO % 0.2 %; BASO ABS # 0.02 K/uL (0-0.2); COMPLETE YES; EOS % 0.8 %; HEMATOCRIT 53.9 % (37-47); LYMPH % 17.8 %; LYMPH ABS # 1.84 K/uL (1.2-3.4); MEAN CELL VOLUME 93.7 fL (80-100); MEAN CORPUSCULAR HEMOGLOBIN 32.9 pg (25-34); MEAN CORPUSCULAR HGB CONC 35.1 g/dl (32-36); MEAN PLATELET VOLUME 9.4 fL (7.4-10.4); MONO % 2.2 %; PLATELET COUNT 246 K/uL (130-400); RED BLOOD COUNT 5.75 M/uL (4.2-5.4); WHITE BLOOD COUNT 10.35 K/uL (4.8-10.8)
[2016-04-27 03:36] LABS: ALT/SGPT 24 U/L (12-78); AST/SGOT 12 U/L (15-37); BLOOD UREA NITROGEN 18 mg/dl (7-18); BUN/CREATININE RATIO 15.4 (10-20); CALCIUM 9.5 mg/dl (8.5-10.1); CARBON DIOXIDE 25 mmol/L (21-32); CHLORIDE 103 mmol/L (98-107); GLUCOSE 106 mg/dl (70-99); POTASSIUM 3.8 mmol/L (3.5-5.1); SODIUM 141 mmol/L (136-145)
[2016-04-27 03:39] LABS: ALKALINE PHOSPHATASE 99 U/L (45-117); C-REACTIVE PROTEIN 1.72 mg/dl (0-0.29)
[2016-04-27] MEDS ORDERED: OPTIRAY 320 IV PRN (03:45)
[2016-04-27] MEDS ORDERED: HYDROmorphone INJ 1 MG/ML SYR IV STA (03:58)
[2016-04-27] MEDS ORDERED: PROCHLORPERAZINE 5 MG/ML 2 ML VIAL IV STA (04:28)
[2016-04-27] MEDS ORDERED: PROCHLORPERAZINE INJ 10 MG in SYRINGE 8 ML IV SCH (04:45)
--- NOTE | 2016-04-27 05:13 | EMERGENCY ROOM VISIT NOTE ---
History First contact with patient: 02:21 Chief Complaint: ABDOMINAL PAIN Stated Complaint: ABDOMINAL PAIN Nursing Triage Summary: pt brought to ED by ALS services. ALS reports pt has a hx of chrons and gets a flare up "about once a month, she usually gets morphine and diludid and a 24 hour stay." report pain onset around 01:50, was given total 10mg morphine and 4mg zofran preshopital. ALS reports one episode vomiting en route. pt states pain is 2/10 at this time. denies nausea at this time, states "I felt nauseaous at home." pt denies urinary symptoms, states she did have blood in her stool today, states "that's new." pt alert and orietned x4 and breathing WNL. History of Present Illness The patient is a 61 year old female who presents to the Emergency Room with complaints of nausea, vomiting and severe periumbilical upper abdominal pain for the past is getting steadily worse. Patient has Crohn's disease. She cannot afford her medications. She is on a prednisone taper. She was seen here last month for Crohn's and small partial bowel obstruction. Patient states the symptoms feel some what worse. Patient denies chest pain, dyspnea, fever, chills, back pain, urinary symptoms, diarrhea.She was admitted here in August and underwent a colonoscopy on 09/12 (Dr. Deisr) which showed terminal ileitis. Review of Systems See HPI for pertinent positives & negatives. A total of 10 systems reviewed and were otherwise negative. Past Medical/Surgical History Medical Problems: (1) Bowel obstruction (2) Cellulitis (3) Crohns disease (4) SBO (small bowel obstruction) Social History Smoking Status: Current Every Day Smoker Drug Use: none Marital Status: Housing Status: lives alone Occupation Status: unemployed Current/Historical Medications Scheduled Aspirin (Aspirin Ec), 81 MG PO DAILY Cyanocobalamin (Vitamin B12), 1,000 MCG PO DAILY Ferrous Sulfate (Iron), 325 MG PO DAILY Methylcellulose (Laxative) (Citrucel), 500 MG PO TID Prednisone (Prednisone), 4 MG PO 5XD Allergies Coded Allergies: No Known Allergies (Unverified , 04/27/16) Physical Exam Vital Signs Date Time Temp Pulse Resp B/P Pulse Ox O2 Delivery O2 Flow Rate FiO2 04/27/16 03:57 93 20 125/63 97 Room Air 04/27/16 03:15 86 18 121/66 97 Room Air 04/27/16 02:35 94 Room Air 04/27/16 02:19 83 04/27/16 02:05 36.5 82 18 112/68 97 Room Air Physical Exam VITALS: Vitals are noted on the nurse's note and reviewed by myself. Vital signs stable. GENERAL: White female in obvious pain, in no acute distress, nondiaphoretic, well-developed well-nourished. SKIN: The skin was without rashes, erythema, edema, or bruising. There is no tenting of the skin. Capillary reflex less than 2 seconds. HEAD: Normocephalic atraumatic. EARS: External auditory canals clear, tympanic membranes pearly hollins without erythema or effusion bilaterally. EYES: Pupils equal round and reactive to light and accommodation. Conjunctivae without injection, sclerae without icterus. Extraocular movements intact. NOSE: Patent, turbinates without inflammation or discharge. MOUTH: Mucous membranes mildly dry. Pharynx without erythema or exudate. Uvula midline. Airway patent. Tongue does not deviate. NECK: Supple without nuchal rigidity. No lymphadenopathy. No thyromegaly. Cervical spine is nontender. No JVD. HEART: Regular rate and rhythm LUNGS: Clear to auscultation bilaterally without wheezes, rales or rhonchi. No dullness to percussion. No retractions or accessory muscle use. ABDOMEN: Positive bowel sounds x 4. Normal tympanic percussion. Soft, vertebra , obese, tender to palpation upper abdomen, without masses or organomegaly. Ruvalcaba sign negative. No guarding or rebound tenderness. no cva tenderness MUSCULOSKELETAL: No muscle atrophy, erythema, or edema noted. NEURO: Patient was alert and oriented to person place and time. Normal sensation to light and sharp touch. No focal neurological deficits. Medical Decision & Procedures Laboratory Results 04/27/16 03:00 Red Blood Count 5.75, Mean Corpuscular Volume 93.7, Mean Corpuscular Hemoglobin 32.9, Mean Corpuscular Hemoglobin Concent 35.1, Mean Platelet Volume 9.4, Neutrophils (%) (Auto) 78.0, Lymphocytes (%) (Auto) 17.8, Monocytes (%) (Auto) 2.2, Eosinophils (%) (Auto) 0.8, Basophils (%) (Auto) 0.2, Neutrophils # (Auto) 8.08, Lymphocytes # (Auto) 1.84, Monocytes # (Auto) 0.23, Eosinophils # (Auto) 0.08, Basophils # (Auto) 0.02 04/27/16 02:49 Test 04/27/16 02:49 04/27/16 03:00 04/27/16 03:13 Anion Gap 13.0 mmol/L (3-11) Est Creatinine Clear Calc Drug Dose 66.6 ml/min Estimated GFR () 56.1 Estimated GFR (Non- 48.4 BUN/Creatinine Ratio 15.4 (10-20) Calcium Level 9.5 mg/dl (8.5-10.1) Magnesium Level 2.0 mg/dl (1.8-2.4) Total Bilirubin 0.5 mg/dl (0.2-1) Direct Bilirubin 0.1 mg/dl (0-0.2) Aspartate Amino Transf (AST/SGOT) 12 U/L (15-37) Alanine Aminotransferase (ALT/SGPT) 24 U/L (12-78) Alkaline Phosphatase 99 U/L (45-117) Troponin I < 0.015 ng/ml (0-0.045) C-Reactive Protein 1.72 mg/dl (0-0.29) Total Protein 7.3 gm/dl (6.4-8.2) Albumin 3.3 gm/dl (3.4-5.0) Lipase 149 U/L (73-393) White Blood Count 10.35 K/uL (4.8-10.8) Red Blood Count 5.75 M/uL (4.2-5.4) Hemoglobin 18.9 g/dL (12.0-16.0) Hematocrit 53.9 % (37-47) Mean Corpuscular Volume 93.7 fL (80-100) Mean Corpuscular Hemoglobin 32.9 pg (25-34) Mean Corpuscular Hemoglobin Concent 35.1 g/dl (32-36) Platelet Count 246 K/uL (130-400) Mean Platelet Volume 9.4 fL (7.4-10.4) Neutrophils (%) (Auto) 78.0 % Lymphocytes (%) (Auto) 17.8 % Monocytes (%) (Auto) 2.2 % Eosinophils (%) (Auto) 0.8 % Basophils (%) (Auto) 0.2 % Neutrophils # (Auto) 8.08 K/uL (1.4-6.5) Lymphocytes # (Auto) 1.84 K/uL (1.2-3.4) Monocytes # (Auto) 0.23 K/uL (0.11-0.59) Eosinophils # (Auto) 0.08 K/uL (0-0.5) Basophils # (Auto) 0.02 K/uL (0-0.2) RDW Standard Deviation 47.1 fL (36.4-46.3) RDW Coefficient of Variation 13.8 % (11.5-14.5) Immature Granulocyte % (Auto) 1.0 % Immature Granulocyte # (Auto) 0.10 K/uL (0.00-0.02) Erythrocyte Sedimentation Rate 22 mm/hr (0-21) Bedside Lactic Acid Venous 4.24 mmol/L (0.90-1.70) Medications Administered Medications (Trade) Dose Ordered Sig/Rachael Route Start Time Stop Time Status Last Admin Dose Admin Sodium Chloride (Nss 500ml) 500 ml @ 999 mls/hr Q31M STAT IV 04/27/16 02:31 04/27/16 03:01 DC 04/27/16 02:45 999 MLS/HR Ondansetron HCl (Zofran Inj) 4 mg NOW STAT IV 04/27/16 02:31 04/27/16 02:33 DC 04/27/16 02:47 4 MG Morphine Sulfate 4 mg 4 mg NOW STAT IV 04/27/16 02:31 04/27/16 02:33 DC 04/27/16 02:48 4 MG Sodium Chloride (Nss 500ml) 500 ml @ 999 mls/hr Q31M STAT IV 04/27/16 03:31 04/27/16 04:01 DC 04/27/16 04:17 999 MLS/HR Hydromorphone HCl 1 mg 1 mg NOW STAT IV 04/27/16 03:58 04/27/16 04:00 DC 04/27/16 04:47 1 MG Prochlorperazine Edisylate/Syringe (Compazine Inj/ Syringe) 10 ml @ 5 mls/min TODAY@0445 IV 04/27/16 04:45 04/27/16 05:30 04/27/16 04:43 5 MLS/MIN ED Course Prior records/ancillary studies reviewed. Triage Nursing notes reviewed. The patient's history was concerning for abdominal pain. Differential diagnosis: Etiologies such as appendicitis, diverticulitis, PUD, biliary pathology, UTI, pancreatitis, obstruction, mesenteric ischemia, aortic pathology, infections, inflammatory bowel disease, renal colic, as well as others were entertained. Physical examination findings: As above. ER treatment provided: IV fluids, morphine, Dilaudid, Compazine On reassessment the patient felt better. Diagnostics interpreted by me: ECG: Normal sinus, normal intervals, no acute ST-T wave changes. Impression normal sinus rhythm interpreted by myself The labs revealed elevated lactic acid, elevated inflammatory markers Imaging studies: Chest x-ray with no acute consolidation or pneumothorax or free air per my interpretation CT ABDOMEN & PELVIS: Compared to CT abdomen and pelvis 03/28/2016 Small bowel obstruction. Transition is in the anterior pelvis axial image 75. There are a few mesenteric soft tissue densities near the site of transition, for example axial images 62 and 65 which may be due to lymphadenopathy/malignancy. Followup would be useful. Mild associated mesenteric edema and trace free fluid. No free air. No evidence of pneumatosis or portal venous gas. Unremarkable appendix. Colonic diverticulosis without CT evidence of acute diverticulitis. 1 centimeter right adrenal nodule. Radiologist: uLpe James M.D. Consultation: A consultation was placed with the GS, Dr Lennon, recommends NG and medical admit. I spoke to Dr Reyes. The case was discussed and diagnostics were reviewed. The patient was evaluated in the ER for further treatment. Exam and history seem consistent with recurrent bowel traction. NG tube was placed. Patient was hydrated and medicated as above. Surgery was consulted. She will be evaluated by medicine. This is her third admission this year for bowel obstruction.By the evaluation outlined above emergent etiologies such as appendicitis, diverticulitis, PUD, biliary pathology, UTI, pancreatitis, mesenteric ischemia, aortic pathology, infections, renal colic, as well as others were deemed relatively unlikely. The pt informed about the findings as listed above. All questions were answered and pleased with the treatment. Case reviewed with my attending Medical Decision as above Impression Primary Impression: Small bowel obstruction Departure Information Dispostion Being Evaluated By Hospitalist Condition FAIR Referrals Oc Sesay PA-C (PCP) Patient Instructions [facility]
[2016-04-27] MEDS ORDERED: ONDANSETRON INJ 2 MG/ML 2 ML VIAL IV PRN (05:30)
--- NOTE | 2016-04-27 05:36 | History and Physical ---
History & Physical Date & Time of Service: Apr 27, 2016 at 05:34 Chief Complaint: Abdominal Pain Primary Care Physician: Oc Sesay PA-C History of Present Illness Source: patient Florencia is a 61 yo F with Crohn's disease, currently on PO prednisone, who woke up at 12am with sudden onset, epigastric abdominal pain. She reports it felt similar to her previous episodes of bowel obstruction. She passed a small amount of dark stool at 12:30. She vomited around 1AM. Her pain was persistent so she came to the ED. She does not feel better after her pain medications. Nothing made her pain worse or better. NG tube was placed and she had over 1L come out rapidly. She was discharged 1 mo ago for a similar issue. Past Medical/Surgical History Medical Problems: (1) Cellulitis Status: Resolved Family History No pertinent FHx Social History Smoking Status: Current Every Day Smoker Drug Use: none Marital Status: Occupational Status: unemployed Multi-Drug Resistant Organisms History of MDRO: No Allergies Coded Allergies: No Known Allergies (Unverified , 04/27/16) Home Medications Scheduled Aspirin (Aspirin Ec), 81 MG PO DAILY Cyanocobalamin (Vitamin B12), 1,000 MCG PO DAILY Ferrous Sulfate (Iron), 325 MG PO DAILY Methylcellulose (Laxative) (Citrucel), 500 MG PO TID Prednisone (Prednisone), 4 MG PO 5XD Review of Systems See HPI for pertinent positives & negatives. A total of 10 systems reviewed and were otherwise negative. Physical Exam Vital Signs Date Time Temp Pulse Resp B/P Pulse Ox O2 Delivery O2 Flow Rate FiO2 04/27/16 05:27 105 18 95/65 93 Nasal Cannula 3.0 04/27/16 05:17 118 18 111/69 97 Nasal Cannula 3.0 04/27/16 05:07 106 14 93/62 91 Nasal Cannula 3.0 04/27/16 05:02 103 18 104/64 92 Nasal Cannula 3.0 04/27/16 04:51 93 Nasal Cannula 3.0 04/27/16 04:50 87 Room Air 04/27/16 03:57 93 20 125/63 97 Room Air 04/27/16 03:15 86 18 121/66 97 Room Air 04/27/16 02:35 94 Room Air 04/27/16 02:19 83 3/20/17 02:05 36.5 82 18 112/68 97 Room Air General Appearance: WD/WN, + mild distress, + obese Head: normocephalic, atraumatic Eyes: normal inspection, PERRL ENT: hearing grossly normal Neck: supple, no JVD Respiratory/Chest: lungs clear, normal breath sounds, no respiratory distress Cardiovascular: regular rate, rhythm, no murmur, normal peripheral pulses Abdomen/GI: soft, + tenderness, + distended, + guarding Extremities/Musculoskelatal: no calf tenderness, no pedal edema Neurologic/Psych: alert, normal mood/affect, normal reflexes, oriented x 3 Skin: no rash Diagnostics Laboratory Results Results Past 24 Hours Test 04/27/16 02:49 04/27/16 02:57 04/27/16 03:00 04/27/16 03:13 Range/Units Sodium Level 141 136-145 mmol/L Potassium Level 3.8 3.5-5.1 mmol/L Chloride Level 103 98-107 mmol/L Carbon Dioxide Level 25 21-32 mmol/L Anion Gap 13.0 3-11 mmol/L Blood Urea Nitrogen 18 7-18 mg/dl Creatinine 1.20 0.60-1.20 mg/dl Est Creatinine Clear Calc Drug Dose 66.6 ml/min Estimated GFR () 56.1 Estimated GFR (Non- 48.4 BUN/Creatinine Ratio 15.4 10-20 Random Glucose 106 70-99 mg/dl Calcium Level 9.5 8.5-10.1 mg/dl Magnesium Level 2.0 1.8-2.4 mg/dl Total Bilirubin 0.5 0.2-1 mg/dl Direct Bilirubin 0.1 0-0.2 mg/dl Aspartate Amino Transf (AST/SGOT) 12 15-37 U/L Alanine Aminotransferase (ALT/SGPT) 24 12-78 U/L Alkaline Phosphatase 99 45-117 U/L Troponin I < 0.015 0-0.045 ng/ml C-Reactive Protein 1.72 0-0.29 mg/dl Total Protein 7.3 6.4-8.2 gm/dl Albumin 3.3 3.4-5.0 gm/dl Lipase 149 73-393 U/L Bedside Lactic Acid Venous 4.78 4.24 0.90-1.70 mmol/L White Blood Count 10.35 4.8-10.8 K/uL Red Blood Count 5.75 4.2-5.4 M/uL Hemoglobin 18.9 12.0-16.0 g/dL Hematocrit 53.9 37-47 % Mean Corpuscular Volume 93.7 80-100 fL Mean Corpuscular Hemoglobin 32.9 25-34 pg Mean Corpuscular Hemoglobin Concent 35.1 32-36 g/dl Platelet Count 246 130-400 K/uL Mean Platelet Volume 9.4 7.4-10.4 fL Neutrophils (%) (Auto) 78.0 % Lymphocytes (%) (Auto) 17.8 % Monocytes (%) (Auto) 2.2 % Eosinophils (%) (Auto) 0.8 % Basophils (%) (Auto) 0.2 % Neutrophils # (Auto) 8.08 1.4-6.5 K/uL Lymphocytes # (Auto) 1.84 1.2-3.4 K/uL Monocytes # (Auto) 0.23 0.11-0.59 K/uL Eosinophils # (Auto) 0.08 0-0.5 K/uL Basophils # (Auto) 0.02 0-0.2 K/uL RDW Standard Deviation 47.1 36.4-46.3 fL RDW Coefficient of Variation 13.8 11.5-14.5 % Immature Granulocyte % (Auto) 1.0 % Immature Granulocyte # (Auto) 0.10 0.00-0.02 K/uL Erythrocyte Sedimentation Rate 22 0-21 mm/hr Diagnostic Radiology CT ABDOMEN & PELVIS: Compared to CT abdomen and pelvis 03/28/2016 Small bowel obstruction. Transition is in the anterior pelvis axial image 75. There are a few mesenteric soft tissue densities near the site of transition, for example axial images 62 and 65 which may be due to lymphadenopathy/malignancy. Followup would be useful. Mild associated mesenteric edema and trace free fluid. No free air. No evidence of pneumatosis or portal venous gas. Unremarkable appendix. Colonic diverticulosis without CT evidence of acute diverticulitis. 1 centimeter right adrenal nodule. Impression Assessment and Plan 61 yo F with Crohn's disease who presents with small bowel obstruction. SBO - IV fluids - NG tube placed in ED - Consulted General Surgery Abdominal pain - 1mg dilaudid q4h Vomiting/Nausea - Zofran PRN Crohn's Disease - Methylprednisolone - Reports she is on this for a month VTE - Heparin, SCDs Full code Resident Physician Supervision Note: Pt seen/examined independently. I discussed the case with the resident and agree with the findings and plan as documented in the note. Any exceptions or clarifications are listed here: Pt is somnolent after receiving Dilaudid Admitted with abdominal pain - confirmed as SBO Following placement of NGT she rapidly yielded over 1 litre OE Somnolent S1,2 R Lungs clear on poor effort Abdomen mildly distended - difficult to gauge discomfort at present P: IVF, NPO, pain control Increase steroid dose pending GI eval as obstruction may be related to flare Surgery consulted Documented By: Lucho Reyes Level of Care Med/Surg Resuscitation Status FULL RESUSCITATION VTE Prophylaxis VTE Risk Assessment Done? Y/N: Yes Risk Level: Moderate Resident Tracking Resident Involvement: Resident Care Provided Care Provided: Adult Hospital Medicine
[2016-04-27] MEDS ORDERED: METHYLPREDNISOLONE IV 40 MG in SYRINGE 0 ML IV SCH (06:30)
[2016-04-27] MEDS: SODIUM CHLOR 0.45% + 20MEQ KCL 1,000 ML IV SCH ×3 (06:46→20:03)
[2016-04-27 06:56] LABS: MANUAL MICROSCOPIC REQUIRED? NO; URINE APPEARANCE CLEAR (CLEAR); URINE BILIRUBIN NEG (NEG); URINE COLOR YELLOW; URINE NITRITE NEG (NEG); URINE SPECIFIC GRAVITY <= 1.005 (1.000-1.030); UROBILINOGEN NEG (NEG)
[2016-04-27 07:03] LABS: REVIEW REQ? NO
--- NOTE | 2016-04-27 07:35 | DIAGNOSTIC IMAGING REPORT ---
PA CHEST WITH ABDOMINAL SERIES CLINICAL HISTORY: Generalized abdominal pain. FINDINGS: A PA chest radiograph is compared to study dated 09/06/2015. The cardiomediastinal silhouette is unremarkable. There is atherosclerotic calcification of the thoracic aorta. There are low lung volumes with bibasilar atelectasis. No airspace consolidation, large pleural effusion, or pneumothorax is seen. The skeletal structures are osteopenic. Degenerative change is noted in the thoracic spine. Bony thorax is grossly intact. Supine and erect abdominal radiographs are correlated with abdominal CT dated 03/28/2016. There are distended and gas-filled loops of small bowel which measure up to 6 cm in diameter. Numerous air-fluid levels are seen on the upright view. The appearance is consistent with a small bowel obstruction. No intraperitoneal free air is seen. There are no abnormal abdominal calcifications. There is moderate lumbar spondylosis and scoliosis. The bony pelvis appears intact. IMPRESSION: 1. Low lung volumes with bibasilar atelectasis. The lungs are otherwise clear. 2. Findings are consistent with a small bowel obstruction. 3. No intraperitoneal free air is seen. Electronically signed by: Frank Cortez M.D. 04/27/2016 7:34 AM Dictated Date/Time: 04/27/2016 7:31 AM
--- NOTE | 2016-04-27 07:38 | DIAGNOSTIC IMAGING REPORT ---
ABDOMEN AND PELVIS CT WITH IV CONTRAST CT DOSE: 1802.14 mGy.cm HISTORY: Abdominal pain. Vomiting. TECHNIQUE: Multiaxial CT images of the abdomen and pelvis were performed following the use of intravenous contrast. COMPARISON STUDY: Abdomen and pelvis CT 03/28/2016. FINDINGS: The lung bases are clear. No pneumoperitoneum. No pneumatosis. Fluid-filled distended stomach and proximal to mid small bowel consistent with a small bowel obstruction. This is not significantly changed in the prior study. The transition point is located within the right lower quadrant anteriorly and is secondary to a short segment of thickened small bowel. There is abnormal soft tissue surrounding this short segment of thickened small bowel with the dominant focus measuring 2.8 x 2.0 cm best seen on image 65. The liver, spleen, left adrenal gland, pancreas, and gallbladder are unremarkable. There is an indeterminate 7 mm hypodense nodule within the right adrenal gland. The bladder, uterus, and adnexa are unremarkable. Colonic diverticulosis. IMPRESSION: Persistent mid to distal small bowel obstruction with the transition point located at a thickened segment of small bowel within the right lower quadrant anteriorly. There is now irregular soft tissue nodularity/lymphadenopathy adjacent to the thickened segment of small bowel. Given the lack of significant change and surrounding soft tissue nodularity, this is could represent underlying malignancy. Findings were discussed with Dr. Bailon at 7:53 AM on 04/27/2016. Electronically signed by: Deejay Jin M.D. 04/27/2016 7:53 AM Dictated Date/Time: 04/27/2016 7:30 AM
[2016-04-27] MEDS ORDERED: ASPIRIN 81 MG ECTAB PO SCH (09:00)
[2016-04-27] MEDS: HYDROmorphone INJ 1 MG/ML SYR IV PRN ×3 (09:46→20:04)
[2016-04-27] MEDS ORDERED: SODIUM CHLORIDE 0.9% 1000ML 1,000 ML IV ONE (12:00)
[2016-04-27] MEDS: METHYLPREDNISOLONE IV 60 MG in SYRINGE 0 ML IV SCH ×3 (12:53→23:26)
--- NOTE | 2016-04-27 14:28 | Medical Consult ---
Consultation Date of Consultation: Apr 27, 2016. Attending Physician: Aime Carrillo D.O. History of Present Illness 61 y/o female with history of Crohn's which is marginally managed due to insurance issues we saw last month for small bowel obstruction. She improved after several days, was discharged on prednisone taper, recently decreased to 20 mg. Yesterday she had abdominal pain, N/V and was admitted for SBO with CT finding again of thickened bowel in RLQ. [place] better after NG was placed. Denies pain today. No flatus. Past Medical/Surgical History Medical Problems: (1) Diarrhea Status: Acute (2) Fistula of intestine, excluding rectum and anus Status: Acute (3) Small bowel obstruction Status: Acute (4) Small bowel obstruction Status: Acute Social History Smoking Status: Current Every Day Smoker Drug Use: none Marital Status: Housing Status: lives alone Occupation Status: unemployed Allergies Coded Allergies: No Known Allergies (Unverified , 04/27/16) Current Inpatient Medications Current Inpatient Medications Medications (Trade) Dose Ordered Sig/Rachael Route Start Time Stop Time Status Last Admin Dose Admin Ioversol (Optiray 320) 100 ml UD PRN IV 04/27/16 03:45 05/01/16 03:44 Ondansetron HCl 4 mg 4 mg Q6H PRN IV 04/27/16 05:30 05/27/16 05:29 Potassium Chloride/Sodium Chloride (1/2 Nss + 20meq KCl 1000ml) 1,000 ml @ 150 mls/hr Q6H40M IV 04/27/16 06:45 05/27/16 06:44 04/27/16 06:46 150 MLS/HR Hydromorphone HCl 1 mg 1 mg Q4H PRN IV 04/27/16 06:45 05/11/16 06:44 04/27/16 09:46 1 MG Methylprednisolone Sodium Succinate/ Syringe (Solu-Medrol IV/ Syringe) 0.96 ml @ 1.5 mls/min Q6 IV 04/27/16 12:30 05/27/16 12:29 04/27/16 12:53 1.5 MLS/MIN Review of Systems Constitutional: No chills, No fever Abdomen: + nausea, + pain Physical Exam Date Time Temp Pulse Resp B/P Pulse Ox O2 Delivery O2 Flow Rate FiO2 04/27/16 13:05 36.3 102 18 93/58 93 Nasal Cannula 2.0 04/27/16 13:00 36.5 109 28 94 2.0 04/27/16 11:25 109 84/58 04/27/16 11:14 36.5 103 28 94 Nasal Cannula 2.0 04/27/16 07:59 112 93 Nasal Cannula 2.0 04/27/16 07:43 Room Air 04/27/16 07:25 36.8 108 18 126/74 Room Air 04/27/16 06:26 36.8 108 18 126/74 94 Nasal Cannula 3.0 04/27/16 05:59 98 22 96/66 93 04/27/16 05:30 95 18 94/66 93 Nasal Cannula 3.0 04/27/16 05:27 105 18 95/65 93 Nasal Cannula 3.0 04/27/16 05:17 118 18 111/69 97 Nasal Cannula 3.0 04/27/16 05:07 106 14 93/62 91 Nasal Cannula 3.0 04/27/16 05:02 103 18 104/64 92 Nasal Cannula 3.0 04/27/16 04:51 93 Nasal Cannula 3.0 04/27/16 04:50 87 Room Air 04/27/16 03:57 93 20 125/63 97 Room Air 04/27/16 03:15 86 18 121/66 97 Room Air 04/27/16 02:35 94 Room Air 04/27/16 02:19 83 04/27/16 02:05 36.5 82 18 112/68 97 Room Air General Appearance: no apparent distress Head: + pertinent finding (NG at 55 cm, 1500 drainage total, 500 of that since she has been on the floor and 1 liter in ED) Respiratory/Chest: lungs clear Cardiovascular: regular rate, rhythm Abdomen/GI: non tender, soft, + distended (slighlty) Laboratory Results Last 24 Hours Test 04/27/16 00:00 04/27/16 02:49 04/27/16 02:57 04/27/16 03:00 Urine Color YELLOW Urine Appearance CLEAR Urine pH 5.0 Urine Specific [place] <= 1.005 Urine Protein NEG Urine Glucose (UA) NEG Urine Ketones NEG Urine Occult Blood NEG Urine Nitrite NEG Urine Bilirubin NEG Urine Urobilinogen NEG Urine Leukocyte Esterase NEG Sodium Level 141 mmol/L Potassium Level 3.8 mmol/L Chloride Level 103 mmol/L Carbon Dioxide Level 25 mmol/L Anion Gap 13.0 mmol/L Blood Urea Nitrogen 18 mg/dl Creatinine 1.20 mg/dl Est Creatinine Clear Calc Drug Dose 66.6 ml/min Estimated GFR () 56.1 Estimated GFR (Non- 48.4 BUN/Creatinine Ratio 15.4 Random Glucose 106 mg/dl Calcium Level 9.5 mg/dl Magnesium Level 2.0 mg/dl Total Bilirubin 0.5 mg/dl Direct Bilirubin 0.1 mg/dl Aspartate Amino Transf (AST/SGOT) 12 U/L Alanine Aminotransferase (ALT/SGPT) 24 U/L Alkaline Phosphatase 99 U/L Troponin I < 0.015 ng/ml C-Reactive Protein 1.72 mg/dl Total Protein 7.3 gm/dl Albumin 3.3 gm/dl Lipase 149 U/L Bedside Lactic Acid Venous 4.78 mmol/L White Blood Count 10.35 K/uL Red Blood Count 5.75 M/uL Hemoglobin 18.9 g/dL Hematocrit 53.9 % Mean Corpuscular Volume 93.7 fL Mean Corpuscular Hemoglobin 32.9 pg Mean Corpuscular Hemoglobin Concent 35.1 g/dl Platelet Count 246 K/uL Mean Platelet Volume 9.4 fL Neutrophils (%) (Auto) 78.0 % Lymphocytes (%) (Auto) 17.8 % Monocytes (%) (Auto) 2.2 % Eosinophils (%) (Auto) 0.8 % Basophils (%) (Auto) 0.2 % Neutrophils # (Auto) 8.08 K/uL Lymphocytes # (Auto) 1.84 K/uL Monocytes # (Auto) 0.23 K/uL Eosinophils # (Auto) 0.08 K/uL Basophils # (Auto) 0.02 K/uL RDW Standard Deviation 47.1 fL RDW Coefficient of Variation 13.8 % Immature Granulocyte % (Auto) 1.0 % Immature Granulocyte # (Auto) 0.10 K/uL Erythrocyte Sedimentation Rate 22 mm/hr Test 04/27/16 03:13 04/27/16 09:30 Bedside Lactic Acid Venous 4.24 mmol/L Lactic Acid Level 4.5 mmol/L CT IMPRESSION: Persistent mid to distal small bowel obstruction with the transition point located at a thickened segment of small bowel within the right lower quadrant anteriorly. There is now irregular soft tissue nodularity/lymphadenopathy adjacent to the thickened segment of small bowel. Given the lack of significant change and surrounding soft tissue nodularity, this is could represent underlying malignancy. Findings were discussed with Dr. Bailon at 7:53 AM on 04/27/2016. Electronically signed by: Deejay Jin M.D. 04/27/2016 7:53 AM Dictated Date/Time: 04/27/2016 7:30 AM Assessment & Plan Crohn's, PSBO no acute abdominal findings, continue NG, IVF adenopathy on CT likely reactive recommend GI follow-up
--- NOTE | 2016-04-27 18:41 | Family Medicine Progress Note ---
Progress Note Date of Service Apr 27, 2016. Subjective Pt evaluation today including: conversation w/ patient, physical exam, chart review, lab review, review of studies Pain: 5 Voiding: no voiding problems Patient had an episode of hypotension this afternoon and tachy which was concerning considering the patient's elevated lactate,. She was given a bolus of NSS which she responded to and transfer to tele She continues to have bouts of abdominal pain but she states that she generally feels better Constitutional: No fever Eyes: No worsening of vision ENT: No hearing loss Respiratory: No cough, No dyspnea on exertion, No shortness of breath, No sputum, No wheezing Cardiovascular: No chest pain Abdomen: + nausea, + pain, + problem reported (no passing gas as of yet), No constipation, No diarrhea, No vomiting Musculoskeletal: No joint pain, No muscle pain Female : No dysuria Neurologic: No balance problems, No weakness Psychiatric: No anxiety, No depression symptoms Endo: No fatigue Skin: No rash Medications Medications Administered Medications (Trade) Dose Ordered Sig/Rachael Route Start Time Stop Time Status Last Admin Dose Admin Sodium Chloride (Nss 500ml) 500 ml @ 999 mls/hr Q31M STAT IV 04/27/16 02:31 04/27/16 03:01 DC 04/27/16 02:45 999 MLS/HR Ondansetron HCl (Zofran Inj) 4 mg NOW STAT IV 04/27/16 02:31 04/27/16 02:33 DC 04/27/16 02:47 4 MG Morphine Sulfate 4 mg 4 mg NOW STAT IV 04/27/16 02:31 04/27/16 02:33 DC 04/27/16 02:48 4 MG Sodium Chloride (Nss 500ml) 500 ml @ 999 mls/hr Q31M STAT IV 04/27/16 03:31 04/27/16 04:01 DC 04/27/16 04:17 999 MLS/HR Hydromorphone HCl 1 mg 1 mg NOW STAT IV 04/27/16 03:58 04/27/16 04:00 DC 04/27/16 04:47 1 MG Prochlorperazine Edisylate 10 mg/ Syringe 10 ml @ 5 mls/min TODAY@0445 IV 04/27/16 04:45 04/27/16 05:30 DC 04/27/16 04:43 5 MLS/MIN Potassium Chloride/Sodium Chloride 1,000 ml @ 150 mls/hr Q6H40M IV 04/27/16 06:45 05/27/16 06:44 04/27/16 16:22 150 MLS/HR Methylprednisolone Sodium Succinate/ Syringe (Solu-Medrol IV/ Syringe) 0.64 ml @ 1.5 mls/min Q12H IV 04/27/16 06:30 04/27/16 12:23 DC 04/27/16 06:46 1.5 MLS/MIN Hydromorphone HCl 1 mg 1 mg Q4H PRN IV 04/27/16 06:45 05/11/16 06:44 04/27/16 16:22 1 MG Sodium Chloride 1,000 ml @ 999 mls/hr Q1H1M ONCE IV 04/27/16 12:00 04/27/16 13:00 DC 04/27/16 12:30 999 MLS/HR Methylprednisolone Sodium Succinate/ Syringe (Solu-Medrol IV/ Syringe) 0.96 ml @ 1.5 mls/min Q6 IV 04/27/16 12:30 05/27/16 12:29 04/27/16 17:48 1.5 MLS/MIN Objective Vital Signs Date Time Temp Pulse Resp B/P Pulse Ox O2 Delivery O2 Flow Rate FiO2 04/27/16 16:00 93 Room Air 04/27/16 15:36 37.1 101 18 113/76 92 Nasal Cannula 2.0 04/27/16 13:05 36.3 102 18 93/58 93 Nasal Cannula 2.0 04/27/16 13:00 36.5 109 28 94 2.0 04/27/16 11:25 109 84/58 04/27/16 11:14 36.5 103 28 94 Nasal Cannula 2.0 04/27/16 07:59 112 93 Nasal Cannula 2.0 04/27/16 07:43 Room Air 04/27/16 07:25 36.8 108 18 126/74 Room Air 04/27/16 06:26 36.8 108 18 126/74 94 Nasal Cannula 3.0 04/27/16 05:59 98 22 96/66 93 04/27/16 05:30 95 18 94/66 93 Nasal Cannula 3.0 04/27/16 05:27 105 18 95/65 93 Nasal Cannula 3.0 04/27/16 05:17 118 18 111/69 97 Nasal Cannula 3.0 04/27/16 05:07 106 14 93/62 91 Nasal Cannula 3.0 04/27/16 05:02 103 18 104/64 92 Nasal Cannula 3.0 04/27/16 04:51 93 Nasal Cannula 3.0 04/27/16 04:50 87 Room Air 04/27/16 03:57 93 20 125/63 97 Room Air 04/27/16 03:15 86 18 121/66 97 Room Air 04/27/16 02:35 94 Room Air 04/27/16 02:19 83 04/27/16 02:05 36.5 82 18 112/68 97 Room Air Physical Exam General Appearance: no apparent distress, + obese, + pertinent finding (NG tube in place) Eyes: normal inspection ENT: normal ENT inspection Neck: supple Respiratory/Chest: normal breath sounds, no respiratory distress, no accessory muscle use, + decreased breath sounds (decreased to bilat bases) Cardiovascular: no murmur, + tachycardia Abdomen: + distended, + tenderness (to deep palpation) Extremities: normal range of motion, non-tender, no pedal edema, no calf tenderness Neurologic/Psychiatric: alert, oriented x 3 Skin: normal color, warm/dry, no rash Lymphatic: no adenopathy Laboratory Results Results Past 24 Hours Test 04/27/16 00:00 04/27/16 02:49 04/27/16 02:57 04/27/16 03:00 Range/Units Urine Color YELLOW Urine Appearance CLEAR CLEAR Urine pH 5.0 4.5-7.5 Urine Specific [place] <= 1.005 1.000-1.030 Urine Protein NEG NEG Urine Glucose (UA) NEG NEG Urine Ketones NEG NEG Urine Occult Blood NEG NEG Urine Nitrite NEG NEG Urine Bilirubin NEG NEG Urine Urobilinogen NEG NEG Urine Leukocyte Esterase NEG NEG Sodium Level 141 136-145 mmol/L Potassium Level 3.8 3.5-5.1 mmol/L Chloride Level 103 98-107 mmol/L Carbon Dioxide Level 25 21-32 mmol/L Anion Gap 13.0 3-11 mmol/L Blood Urea Nitrogen 18 7-18 mg/dl Creatinine 1.20 0.60-1.20 mg/dl Est Creatinine Clear Calc Drug Dose 66.6 ml/min Estimated GFR () 56.1 Estimated GFR (Non- 48.4 BUN/Creatinine Ratio 15.4 10-20 Random Glucose 106 70-99 mg/dl Calcium Level 9.5 8.5-10.1 mg/dl Magnesium Level 2.0 1.8-2.4 mg/dl Total Bilirubin 0.5 0.2-1 mg/dl Direct Bilirubin 0.1 0-0.2 mg/dl Aspartate Amino Transf (AST/SGOT) 12 15-37 U/L Alanine Aminotransferase (ALT/SGPT) 24 12-78 U/L Alkaline Phosphatase 99 45-117 U/L Troponin I < 0.015 0-0.045 ng/ml C-Reactive Protein 1.72 0-0.29 mg/dl Total Protein 7.3 6.4-8.2 gm/dl Albumin 3.3 3.4-5.0 gm/dl Lipase 149 73-393 U/L Bedside Lactic Acid Venous 4.78 0.90-1.70 mmol/L White Blood Count 10.35 4.8-10.8 K/uL Red Blood Count 5.75 4.2-5.4 M/uL Hemoglobin 18.9 12.0-16.0 g/dL Hematocrit 53.9 37-47 % Mean Corpuscular Volume 93.7 80-100 fL Mean Corpuscular Hemoglobin 32.9 25-34 pg Mean Corpuscular Hemoglobin Concent 35.1 32-36 g/dl Platelet Count 246 130-400 K/uL Mean Platelet Volume 9.4 7.4-10.4 fL Neutrophils (%) (Auto) 78.0 % Lymphocytes (%) (Auto) 17.8 % Monocytes (%) (Auto) 2.2 % Eosinophils (%) (Auto) 0.8 % Basophils (%) (Auto) 0.2 % Neutrophils # (Auto) 8.08 1.4-6.5 K/uL Lymphocytes # (Auto) 1.84 1.2-3.4 K/uL Monocytes # (Auto) 0.23 0.11-0.59 K/uL Eosinophils # (Auto) 0.08 0-0.5 K/uL Basophils # (Auto) 0.02 0-0.2 K/uL RDW Standard Deviation 47.1 36.4-46.3 fL RDW Coefficient of Variation 13.8 11.5-14.5 % Immature Granulocyte % (Auto) 1.0 % Immature Granulocyte # (Auto) 0.10 0.00-0.02 K/uL Erythrocyte Sedimentation Rate 22 0-21 mm/hr Test 04/27/16 03:13 04/27/16 09:30 04/27/16 15:32 Range/Units Bedside Lactic Acid Venous 4.24 0.90-1.70 mmol/L Lactic Acid Level 4.5 3.8 0.4-2.0 mmol/L Assessment and Plan 61 yo F with Crohn's disease who presents with small bowel obstruction. She does not have good follow up in the outpatient setting because of concerns with insurance. General surgery does not recommend any surgical intervention as of yet. SBO secondary to Crohn's (lymphadenopathy) vs malignant process - NPO, - NG tube placed - IV fluids - NSSKCL 20 @ 150cc, received 1 bolus 04/27/2016 - Consulted General Surgery- appreciate input - Gi consult - 1 mg dilaudid q 4 h for pain control - may consider repeat imaging once exacerbation in better control to r/o malignancy Hypotensive episode secondary to dehydration; concern for developing sepsis - moved to tele - will follow lactate levels Vomiting/Nausea - Zofran PRN Crohn's Disease exacerbation - Methylprednisolone 60 q 6 h VTE - Heparin, SCDs Full code Resident Physician Supervision Note: I interviewed and examined the patient. Discussed with Dr. Nath and agree with findings and plan as documented in the note. Any exceptions or clarifications are listed here: None Documented By: Aime Carrillo low BP. only complaint is belly pain no lightheaded no weak no dizzy no other new complaints vitals noted - radial pulse easily felt but can't auscultate SBP > 80 breathing unlabored, no pallor or icterus abd soft mod distended mod tender IBD flare causing dehydration leading to hypotension - IVFs, supportive care Continued [facility] stay due to: abnormal vital signs, other Discharge planning: uncertain
[2016-04-28] VITALS (7 sets, daily range): BP systolic 99–113; BP diastolic 61–70; PULSE 74–90; TEMP 36.8–37; O2SAT 90–94
--- NOTE | 2016-04-28 01:26 | GASTROINTESTINAL CONSULTATION ---
DATE OF CONSULTATION: 04/27/2016 RACE: . ATTENDING PHYSICIAN: Dr. Reyes. CONSULTING PHYSICIAN: Dr. Desir. REASON FOR CONSULTATION: Small bowel obstruction related to Crohn disease. HISTORY OF PRESENT ILLNESS: Florencia Freeman is a 61-year-old female with a history of stricturing Crohn disease of the terminal ileum. She did undergo a colonoscopy in 2016 by myself on 09/12 following multiple bouts of small bowel obstructions at local [facility]. She was noted to have mild active ileitis on terminal ileal biopsies at that time though on endoscopic evaluation, findings were consistent with Crohn disease. She has responded previously to recurrent small bowel obstructions involving the terminal ileum with steroid tapers and most recently was admitted on 03/29/2016 when she was evaluated by Dr. Patel and eventually seen by our service on 03/30. At that time, she continued to be medically noncompliant and did not follow up as an outpatient for further evaluation or chronic therapy for her chronic medical illness. At her discharge in March, she was given a prescription for an 8-week taper of prednisone therapy and was advised to follow up in our office; however, she returned to the department of emergency medicine on 04/27 with complaints of abdominal pain and CT imaging showed findings consistent with a small bowel obstruction involving the distal small bowel. She states that she was compliant with her steroid taper as an outpatient, though did not follow up with the GI or with social group worker to determine how she could obtain insurance to pay for her chronic medications for Crohn's. Since she has been admitted, she has received IV steroid therapy and currently has an NG tube in place to low intermittent suction and has had clinical improvement in her symptoms though has not had any flatus as of this time. She again states that she would like to discuss her current financial situation with social group worker, so that she can be on chronic therapy. She denies any fevers, chills, nausea, vomiting, hematemesis, melena or hematochezia at this time and has no further complaints. PAST MEDICAL HISTORY: Significant for cellulitis, Crohn disease, recurrent bowel obstructions. PAST SURGICAL HISTORY: None. ALLERGIES: None. MEDICATIONS AT PRESENT: Include methylprednisolone 60 mg IV q. 6 hours, Dilaudid 1 mg IV q. 4 p.r.n. pain, Zofran 4 mg IV q. 6 p.r.n. nausea. SOCIAL HISTORY: No tobacco, alcohol or illicit drug use. FAMILY HISTORY: Negative for GI malignancy or inflammatory bowel disease. REVIEW OF SYSTEMS: Negative [id number] review other than pertinent positives listed in the HPI. PHYSICAL EXAMINATION: VITAL SIGNS: Include a temp of 37.1, pulse 101, respirations 18, blood pressure 113/76, pulse ox 92% on 2 liters via nasal cannula. GENERAL: She is awake, cooperative, obese, chronic ill appearing, in no acute distress. HEAD: Normocephalic, atraumatic. EYES: Pupils equally round. Extraocular muscles are intact. ENT: External evaluation of the ears is normal. There is an NG tube in the right naris. NECK: Soft, supple. No JVD or lymphadenopathy. CHEST: Decreased breath sounds in bilateral bases. CARDIOVASCULAR SYSTEM: Regular rate and rhythm. ABDOMEN: Soft, obese, nontender, nondistended. There are positive bowel sounds. EXTREMITIES: No clubbing, cyanosis or edema. SKIN: Soft and pink. Good turgor. LABORATORY STUDIES: Hemoglobin 18.9, hematocrit 53.9. Lactic acid most recently 3.8, C-reactive protein 1.72. Liver panel was unremarkable. IMPRESSION: A 61-year-old female with stricturing, Crohn disease involving the terminal ileum with recurrent small bowel obstruction and medical noncompliance secondary to financial hardship and lack of insurance. PLAN: At the present time, I would recommend continuing her on IV steroids. I would decrease her methylprednisolone to 60 mg IV b.i.d. on 04/29 and would further decrease it to 40 mg IV b.i.d. on 04/30 and I also asked the nursing staff to arrange a visit from social group worker with the patient to help with her financial situation and to determine if she is eligible for any financial assistance or other help they can provide to ensure that she can receive chronic therapy for her Crohn disease. I informed her that it is very important that she is compliant with followups to our office as an outpatient and oftentimes we can help arrange for charitable care through the drug [employer] as well, though again I stressed to her the importance of following up, so that we know that there is an issue with her not receiving her medications. I would recommend continuing supportive care at this time. She has been seen by general surgery and I agree that at the present time, she is not in need of emergent surgery as she has no peritoneal signs. I will follow her clinical course and make further recommendations as needed. Once again, thanks for allowing me to participate in the care of this patient. If you have any further questions, please do not hesitate in contacting me.
[2016-04-28] MEDS: SODIUM CHLOR 0.45% + 20MEQ KCL 1,000 ML IV SCH (03:12)
[2016-04-28] MEDS: HYDROmorphone INJ 1 MG/ML SYR IV PRN (03:24)
[2016-04-28] MEDS: METHYLPREDNISOLONE IV 60 MG in SYRINGE 0 ML IV SCH ×2 (05:47→21:10)
[2016-04-28] MEDS ORDERED: ACETAMINOPHEN 325 MG TAB ONE (08:05)
[2016-04-28 08:09] LABS: HEMATOCRIT 41.8 % (37-47); MEAN CELL VOLUME 89.7 fL (80-100); MEAN CORPUSCULAR HEMOGLOBIN 31.8 pg (25-34); MEAN CORPUSCULAR HGB CONC 35.4 g/dl (32-36); MEAN PLATELET VOLUME 9.2 fL (7.4-10.4); PLATELET COUNT 244 K/uL (130-400); RED BLOOD COUNT 4.66 M/uL (4.2-5.4); WHITE BLOOD COUNT 10.64 K/uL (4.8-10.8)
[2016-04-28 08:15] LABS: ALB/GLOB RATIO 0.7 (0.9-2); BUN/CREATININE RATIO 30.5 (10-20); CALCIUM 8.4 mg/dl (8.5-10.1); CREATININE 1.5 mg/dl (0.60-1.20); POTASSIUM 4.4 mmol/L (3.5-5.1)
[2016-04-28] MEDS ORDERED: NURSING VERBAL MED ORDER ONE (08:15)
--- NOTE | 2016-04-28 08:24 | Surgery Progress Note ---
Surgery Progress Note Date of Service Apr 28, 2016. Subjective + bowel movement, + feeling well, + flatus, No nausea Objective Vital Signs: Date Time Temp Pulse Resp B/P Pulse Ox O2 Delivery O2 Flow Rate FiO2 04/28/16 07:50 36.8 74 16 100/64 91 Room Air 04/28/16 04:00 Room Air 04/28/16 04:00 37.0 89 18 104/67 90 Room Air 04/28/16 00:01 Room Air 04/28/16 00:00 36.8 90 20 112/69 93 Room Air 04/27/16 20:00 Room Air 04/27/16 19:51 37.2 102 18 103/64 92 Room Air 04/27/16 16:00 93 Room Air 04/27/16 15:36 37.1 101 18 113/76 92 Nasal Cannula 2.0 04/27/16 13:05 36.3 102 18 93/58 93 Nasal Cannula 2.0 04/27/16 13:00 36.5 109 28 94 2.0 04/27/16 11:25 109 84/58 04/27/16 11:14 36.5 103 28 94 Nasal Cannula 2.0 Physical Exam: nasogastric drainage (100cc) Abdomen: non tender, non distended, soft Laboratory Results: Results Past 24 Hours Test 04/27/16 09:30 04/27/16 15:32 04/28/16 07:16 Range/Units Lactic Acid Level 4.5 3.8 1.9 0.4-2.0 mmol/L White Blood Count 10.64 4.8-10.8 K/uL Red Blood Count 4.66 4.2-5.4 M/uL Hemoglobin 14.8 12.0-16.0 g/dL Hematocrit 41.8 37-47 % Mean Corpuscular Volume 89.7 80-100 fL Mean Corpuscular Hemoglobin 31.8 25-34 pg Mean Corpuscular Hemoglobin Concent 35.4 32-36 g/dl Platelet Count 244 130-400 K/uL Mean Platelet Volume 9.2 7.4-10.4 fL RDW Standard Deviation 46.8 36.4-46.3 fL RDW Coefficient of Variation 14.3 11.5-14.5 % Sodium Level 137 136-145 mmol/L Potassium Level 4.4 3.5-5.1 mmol/L Chloride Level 106 98-107 mmol/L Carbon Dioxide Level 22 21-32 mmol/L Anion Gap 9.0 3-11 mmol/L Blood Urea Nitrogen 46 7-18 mg/dl Creatinine 1.50 0.60-1.20 mg/dl Est Creatinine Clear Calc Drug Dose 46.9 ml/min Estimated GFR () 42.8 Estimated GFR (Non- 37.0 BUN/Creatinine Ratio 30.5 10-20 Random Glucose 138 70-99 mg/dl Calcium Level 8.4 8.5-10.1 mg/dl Total Bilirubin 0.5 0.2-1 mg/dl Aspartate Amino Transf (AST/SGOT) 11 15-37 U/L Alanine Aminotransferase (ALT/SGPT) 19 12-78 U/L Alkaline Phosphatase 55 45-117 U/L Total Protein 6.0 6.4-8.2 gm/dl Albumin 2.4 3.4-5.0 gm/dl Globulin 3.6 2.5-4.0 gm/dl Albumin/Globulin Ratio 0.7 0.9-2 Assessment & Plan Crohn's flare/PSBO d/c NG start on clears this afternoon if doing ok HR, BP stable
--- NOTE | 2016-04-28 09:38 | Gastroenterology Progress Note ---
Progress Note Date of Service: Apr 28, 2016 Subjective Pt evaluation today including: conversation w/ patient, physical exam, lab review, review of studies Patient is a 61 yo female who presents to the hospital with a partial small bowel obstruction secondary to Crohn's exacerbation. Patient has a history of noncompliance secondary to financial/social issues. She has not followed-up as an outpatient for further discussion of chronic treatment for her Crohn's Disease. Surgery has removed the NG tube. Patient reports improvement of abdominal pain since being NPO and on IV steroids. She denies any bowel movements so far today. She offers no further complaints at present. She is eager to advance to rolls. Review of Systems Constitutional: No chills, No fever Eyes: No problem reported Respiratory: No cough, No shortness of breath Cardiac: No chest pain Abdomen: + diarrhea (improving), + pain (improving), No nausea, No vomiting Musculoskeletal: No joint pain Neuro: No problem reported Psych: No problem reported Skin: No problem reported Medications Current Inpatient Medications Medications (Trade) Dose Ordered Sig/Rachael Route Start Time Stop Time Status Last Admin Dose Admin Ioversol (Optiray 320) 100 ml UD PRN IV 04/27/16 03:45 05/01/16 03:44 Ondansetron HCl 4 mg 4 mg Q6H PRN IV 04/27/16 05:30 05/27/16 05:29 Potassium Chloride/Sodium Chloride (1/2 Nss + 20meq KCl 1000ml) 1,000 ml @ 150 mls/hr Q6H40M IV 04/27/16 06:45 05/27/16 06:44 04/28/16 03:12 150 MLS/HR Hydromorphone HCl 1 mg 1 mg Q4H PRN IV 04/27/16 06:45 05/11/16 06:44 04/28/16 03:24 1 MG Methylprednisolone Sodium Succinate/ Syringe (Solu-Medrol IV/ Syringe) 0.96 ml @ 1.5 mls/min Q6 IV 04/27/16 12:30 05/27/16 12:29 04/28/16 05:47 1.5 MLS/MIN Acetaminophen (Tylenol Tab) 650 mg Q6H PRN PO 04/28/16 08:30 05/28/16 08:29 Objective Vital Signs Date Time Temp Pulse Resp B/P Pulse Ox O2 Delivery O2 Flow Rate FiO2 04/28/16 08:00 Room Air 04/28/16 07:50 36.8 74 16 100/64 91 Room Air 04/28/16 04:00 Room Air 04/28/16 04:00 37.0 89 18 104/67 90 Room Air 04/28/16 00:01 Room Air 04/28/16 00:00 36.8 90 20 112/69 93 Room Air 04/27/16 20:00 Room Air 04/27/16 19:51 37.2 102 18 103/64 92 Room Air 04/27/16 16:00 93 Room Air 04/27/16 15:36 37.1 101 18 113/76 92 Nasal Cannula 2.0 04/27/16 13:05 36.3 102 18 93/58 93 Nasal Cannula 2.0 04/27/16 13:00 36.5 109 28 94 2.0 04/27/16 11:25 109 84/58 04/27/16 11:14 36.5 103 28 94 Nasal Cannula 2.0 Physical Exam General Appearance: WD/WN, no apparent distress Eyes: normal inspection, PERRL Respiratory/Chest: lungs clear, normal breath sounds Cardiovascular: regular rate, rhythm Abdomen: normal bowel sounds, soft, + tenderness Extremities: non-tender Neurologic/Psych: alert, oriented x 3 Skin: normal color Laboratory Results Last 24 Hours Test 04/27/16 09:30 04/27/16 15:32 04/28/16 07:16 Lactic Acid Level 4.5 mmol/L 3.8 mmol/L 1.9 mmol/L White Blood Count 10.64 K/uL Red Blood Count 4.66 M/uL Hemoglobin 14.8 g/dL Hematocrit 41.8 % Mean Corpuscular Volume 89.7 fL Mean Corpuscular Hemoglobin 31.8 pg Mean Corpuscular Hemoglobin Concent 35.4 g/dl Platelet Count 244 K/uL Mean Platelet Volume 9.2 fL RDW Standard Deviation 46.8 fL RDW Coefficient of Variation 14.3 % Sodium Level 137 mmol/L Potassium Level 4.4 mmol/L Chloride Level 106 mmol/L Carbon Dioxide Level 22 mmol/L Anion Gap 9.0 mmol/L Blood Urea Nitrogen 46 mg/dl Creatinine 1.50 mg/dl Est Creatinine Clear Calc Drug Dose 46.9 ml/min Estimated GFR () 42.8 Estimated GFR (Non- 37.0 BUN/Creatinine Ratio 30.5 Random Glucose 138 mg/dl Calcium Level 8.4 mg/dl Total Bilirubin 0.5 mg/dl Aspartate Amino Transf (AST/SGOT) 11 U/L Alanine Aminotransferase (ALT/SGPT) 19 U/L Alkaline Phosphatase 55 U/L Total Protein 6.0 gm/dl Albumin 2.4 gm/dl Globulin 3.6 gm/dl Albumin/Globulin Ratio 0.7 Assessment and Plan Patient is a 61 yo female with partial small bowel obstruction secondary to uncontrolled Crohn's Disease due to patient noncompliance with follow-up and chronic treatment for her IBD. 1) Continue Solumedrol 60 mg BID today. Can transition to 40 mg BID on 04/30. Upon discharge will plan for an 8 week Prednisone taper beginning at 40 mg daily and decreasing by 5 mg each week. 2) environmental services director consult due to ongoing lack of insurance issues. 3) Stressed compliance with outpatient follow-up. 4) Surgery recommendations appreciated--NG tube is pulled and patient is advancing to a clear liquid diet today. 5) Supportive care per primary team. Thank you for allowing us to participate in the care of this patient. If you should have any further questions or concerns, do not hesitate to contact us. Agree with LISA Amador as above Abd: Soft, Tender RLQ, ND, +BS Continue current therapy Recommend she followup in our office for maintenance medication for Crohn's disease, as Prednisone is not an adequate medication in the chronic treatment of Crohn's
--- NOTE | 2016-04-28 09:50 | Family Medicine Progress Note ---
Progress Note Date of Service Apr 28, 2016. Subjective Pt evaluation today including: conversation w/ patient, physical exam, chart review, lab review Pain: 2 PO Intake: NG tube Voiding: no voiding problems Patient states that she is now passing gas and has had a BM She states that the cramping and abdominal pain has subsided but just feeling "tender" which she attributes to the vomiting We did discuss her financial status, she does have 5 mg prednisone tablets available to her which she already paid for. She would like to use those on discharge Hypotension has resolved Constitutional: No fever Eyes: No worsening of vision Respiratory: No cough, No dyspnea on exertion, No shortness of breath, No sputum, No wheezing Cardiovascular: No chest pain Abdomen: + pain, No constipation, No diarrhea, No nausea, No vomiting Musculoskeletal: No joint pain Female : No dysuria, No hematuria Neurologic: No weakness Endo: + fatigue Skin: No rash Medications Medications Administered Medications (Trade) Dose Ordered Sig/Rachael Route Start Time Stop Time Status Last Admin Dose Admin Sodium Chloride (Nss 500ml) 500 ml @ 999 mls/hr Q31M STAT IV 04/27/16 02:31 04/27/16 03:01 DC 04/27/16 02:45 999 MLS/HR Ondansetron HCl (Zofran Inj) 4 mg NOW STAT IV 04/27/16 02:31 04/27/16 02:33 DC 04/27/16 02:47 4 MG Morphine Sulfate 4 mg 4 mg NOW STAT IV 04/27/16 02:31 04/27/16 02:33 DC 04/27/16 02:48 4 MG Sodium Chloride (Nss 500ml) 500 ml @ 999 mls/hr Q31M STAT IV 04/27/16 03:31 04/27/16 04:01 DC 04/27/16 04:17 999 MLS/HR Hydromorphone HCl 1 mg 1 mg NOW STAT IV 04/27/16 03:58 04/27/16 04:00 DC 04/27/16 04:47 1 MG Prochlorperazine Edisylate 10 mg/ Syringe 10 ml @ 5 mls/min TODAY@0445 IV 04/27/16 04:45 04/27/16 05:30 DC 04/27/16 04:43 5 MLS/MIN Potassium Chloride/Sodium Chloride 1,000 ml @ 150 mls/hr Q6H40M IV 04/27/16 06:45 05/27/16 06:44 04/28/16 03:12 150 MLS/HR Methylprednisolone Sodium Succinate/ Syringe (Solu-Medrol IV/ Syringe) 0.64 ml @ 1.5 mls/min Q12H IV 04/27/16 06:30 04/27/16 12:23 DC 04/27/16 06:46 1.5 MLS/MIN Hydromorphone HCl 1 mg 1 mg Q4H PRN IV 04/27/16 06:45 05/11/16 06:44 04/28/16 03:24 1 MG Sodium Chloride 1,000 ml @ 999 mls/hr Q1H1M ONCE IV 04/27/16 12:00 04/27/16 13:00 DC 04/27/16 12:30 999 MLS/HR Methylprednisolone Sodium Succinate/ Syringe (Solu-Medrol IV/ Syringe) 0.96 ml @ 1.5 mls/min Q6 IV 04/27/16 12:30 05/27/16 12:29 04/28/16 05:47 1.5 MLS/MIN Acetaminophen (Tylenol Tab) 650 mg STK-MED ONCE .ROUTE 04/28/16 08:05 04/28/16 08:08 DC 04/28/16 08:11 650 MG Objective Vital Signs Date Time Temp Pulse Resp B/P Pulse Ox O2 Delivery O2 Flow Rate FiO2 04/28/16 08:00 Room Air 04/28/16 07:50 36.8 74 16 100/64 91 Room Air 04/28/16 04:00 Room Air 04/28/16 04:00 37.0 89 18 104/67 90 Room Air 04/28/16 00:01 Room Air 04/28/16 00:00 36.8 90 20 112/69 93 Room Air 04/27/16 20:00 Room Air 04/27/16 19:51 37.2 102 18 103/64 92 Room Air 04/27/16 16:00 93 Room Air 04/27/16 15:36 37.1 101 18 113/76 92 Nasal Cannula 2.0 04/27/16 13:05 36.3 102 18 93/58 93 Nasal Cannula 2.0 04/27/16 13:00 36.5 109 28 94 2.0 04/27/16 11:25 109 84/58 04/27/16 11:14 36.5 103 28 94 Nasal Cannula 2.0 Physical Exam General Appearance: WD/WN, + mild distress Eyes: normal inspection ENT: normal ENT inspection Neck: supple Respiratory/Chest: normal breath sounds, no respiratory distress, no accessory muscle use, + decreased breath sounds Cardiovascular: regular rate, rhythm, no murmur Abdomen: normal bowel sounds, soft, + tenderness (with deep palpation) Extremities: non-tender, normal inspection, no pedal edema, no calf tenderness Neurologic/Psychiatric: alert, normal mood/affect, oriented x 3 Skin: normal color, warm/dry, no rash Lymphatic: no adenopathy Laboratory Results Results Past 24 Hours Test 04/27/16 15:32 04/28/16 07:16 Range/Units Lactic Acid Level 3.8 1.9 0.4-2.0 mmol/L White Blood Count 10.64 4.8-10.8 K/uL Red Blood Count 4.66 4.2-5.4 M/uL Hemoglobin 14.8 12.0-16.0 g/dL Hematocrit 41.8 37-47 % Mean Corpuscular Volume 89.7 80-100 fL Mean Corpuscular Hemoglobin 31.8 25-34 pg Mean Corpuscular Hemoglobin Concent 35.4 32-36 g/dl Platelet Count 244 130-400 K/uL Mean Platelet Volume 9.2 7.4-10.4 fL RDW Standard Deviation 46.8 36.4-46.3 fL RDW Coefficient of Variation 14.3 11.5-14.5 % Sodium Level 137 136-145 mmol/L Potassium Level 4.4 3.5-5.1 mmol/L Chloride Level 106 98-107 mmol/L Carbon Dioxide Level 22 21-32 mmol/L Anion Gap 9.0 3-11 mmol/L Blood Urea Nitrogen 46 7-18 mg/dl Creatinine 1.50 0.60-1.20 mg/dl Est Creatinine Clear Calc Drug Dose 46.9 ml/min Estimated GFR () 42.8 Estimated GFR (Non- 37.0 BUN/Creatinine Ratio 30.5 10-20 Random Glucose 138 70-99 mg/dl Calcium Level 8.4 8.5-10.1 mg/dl Total Bilirubin 0.5 0.2-1 mg/dl Aspartate Amino Transf (AST/SGOT) 11 15-37 U/L Alanine Aminotransferase (ALT/SGPT) 19 12-78 U/L Alkaline Phosphatase 55 45-117 U/L Total Protein 6.0 6.4-8.2 gm/dl Albumin 2.4 3.4-5.0 gm/dl Globulin 3.6 2.5-4.0 gm/dl Albumin/Globulin Ratio 0.7 0.9-2 Assessment and Plan 61 yo F with Crohn's disease who presents with small bowel obstruction. She does not have good follow up in the outpatient setting because of concerns with insurance. General surgery does not recommend any surgical intervention as of yet. She has started to pass gas and had a BM so will d/c NG tube and advance diet as tolerated at this time. SBO secondary to Crohn's (lymphadenopathy) vs malignant process - NG d/c - advance diet as tolerated - IV fluids - NSSKCL 20 @ 150cc, received 1 bolus 04/27/2016 - Consulted General Surgery- appreciate input - Gi consult- appreciate input - plan is to tape steroids - Had a discussion about prednisone and cost with patient, she would benefit from the four dollar list at [facility] - prescriptions available for 4 dollars: - prednisone 2.5 mg x 30 days, 5 mg x 30 days or 10 mg x 30 days -These doses are also available for 10 dollars however for a 90 days course best would be to base treatment with these doses so patient will more likely be able to afford - 1 mg dilaudid q 4 h for pain control - may consider repeat imaging once exacerbation in better control to r/o malignancy Hypotensive episode secondary to dehydration; concern for developing sepsis - lactate is now improving, will downgrade to med surg as hypotension has resolved - continue to follow lactate levels JULIETTE secondary to hypotensive episode vs IV contrast - BMP repeat in am - continue to administer IVF maintenance - will change from NSS with KCL to NSS @ 100cc/h Vomiting/Nausea - Zofran PRN Crohn's Disease exacerbation - Methylprednisolone 60 q bid and taper as per GI rec VTE - Heparin, SCDs Full code Resident Physician Supervision Note: I interviewed and examined the patient. Discussed with Dr. Nath and agree with findings and plan as documented in the note. Any exceptions or clarifications are listed here: None Documented By: Aime Carrillo feeling better, eating tolerating clears well notes having BMs and flatus vitals noted, braething unlabored, no distress no pallor or icterus SBO - improving. due to uncontrolled IBD. clears - advance to full liquid. continue steroids. social services specialist for help otherwise as above Continued [facility] stay due to: other Discharge planning: uncertain
[2016-04-28] MEDS: SODIUM CHLORIDE 0.9% 1000ML 1,000 ML IV SCH ×2 (10:17→20:14)
[2016-04-28 10:31] LABS: BASO % 0.1 %; BASO ABS # 0.01 K/uL (0-0.2); COMPLETE YES; EOS % 0.1 %; IG% 0.5 %; LYMPH % 7.8 %; LYMPH ABS # 0.83 K/uL (1.2-3.4); MONO % 2.8 %; NEUT % 88.7 %
[2016-04-28] MEDS: ACETAMINOPHEN 325 MG TAB PO PRN (20:15)
[2016-04-28] MEDS ORDERED: ONDANSETRON INJ 2 MG/ML 2 ML VIAL IV STA (22:06)
[2016-04-28] MEDS ORDERED: ONDANSETRON INJ 2 MG/ML 2 ML VIAL IV PRN (22:15)
[2016-04-29] MEDS: SODIUM CHLORIDE 0.9% 1000ML 1,000 ML IV SCH (05:31)
[2016-04-29 06:39] LABS: BASO % 0.1 %; BASO ABS # 0.01 K/uL (0-0.2); COMPLETE YES; HEMATOCRIT 38.5 % (37-47); IG% 0.5 %; LYMPH % 9.2 %; MEAN CELL VOLUME 90.2 fL (80-100); MEAN CORPUSCULAR HEMOGLOBIN 30.9 pg (25-34); MEAN CORPUSCULAR HGB CONC 34.3 g/dl (32-36); MEAN PLATELET VOLUME 9.1 fL (7.4-10.4); MONO % 3.8 %; NEUT % 86.4 %; PLATELET COUNT 204 K/uL (130-400); RED BLOOD COUNT 4.27 M/uL (4.2-5.4); WHITE BLOOD COUNT 7.59 K/uL (4.8-10.8)
[2016-04-29 07:15] LABS: ALB/GLOB RATIO 0.7 (0.9-2); BUN/CREATININE RATIO 27.4 (10-20); CALCIUM 8.1 mg/dl (8.5-10.1); CREATININE 0.83 mg/dl (0.60-1.20)
[2016-04-29 07:16] VITALS: BP 112/68; PULSE 71; TEMP 36.7; O2SAT 94
[2016-04-29] MEDS: METHYLPREDNISOLONE IV 60 MG in SYRINGE 0 ML IV SCH ×2 (08:35→21:02)
--- NOTE | 2016-04-29 08:51 | Surgery Progress Note ---
Surgery Progress Note Date of Service Apr 29, 2016. Subjective + bowel movement, + diet (clears), + feeling well, No nausea Objective Vital Signs: Date Time Temp Pulse Resp B/P Pulse Ox O2 Delivery O2 Flow Rate FiO2 04/29/16 08:03 Room Air 04/29/16 07:16 36.7 71 16 112/68 94 Room Air 04/28/16 23:55 Room Air 04/28/16 23:31 36.8 74 16 99/61 93 Room Air 04/28/16 15:30 Room Air 04/28/16 15:30 36.8 78 21 108/66 93 Room Air 04/28/16 12:15 Room Air 04/28/16 10:48 36.8 83 20 113/70 94 Room Air 04/28/16 10:23 36.8 74 16 91 2.0 Abdomen: non tender, non distended, soft Laboratory Results: Results Past 24 Hours Test 04/29/16 06:19 Range/Units White Blood Count 7.59 4.8-10.8 K/uL Red Blood Count 4.27 4.2-5.4 M/uL Hemoglobin 13.2 12.0-16.0 g/dL Hematocrit 38.5 37-47 % Mean Corpuscular Volume 90.2 80-100 fL Mean Corpuscular Hemoglobin 30.9 25-34 pg Mean Corpuscular Hemoglobin Concent 34.3 32-36 g/dl Platelet Count 204 130-400 K/uL Mean Platelet Volume 9.1 7.4-10.4 fL Neutrophils (%) (Auto) 86.4 % Lymphocytes (%) (Auto) 9.2 % Monocytes (%) (Auto) 3.8 % Eosinophils (%) (Auto) 0.0 % Basophils (%) (Auto) 0.1 % Neutrophils # (Auto) 6.55 1.4-6.5 K/uL Lymphocytes # (Auto) 0.70 1.2-3.4 K/uL Monocytes # (Auto) 0.29 0.11-0.59 K/uL Eosinophils # (Auto) 0.00 0-0.5 K/uL Basophils # (Auto) 0.01 0-0.2 K/uL RDW Standard Deviation 45.9 36.4-46.3 fL RDW Coefficient of Variation 13.9 11.5-14.5 % Immature Granulocyte % (Auto) 0.5 % Immature Granulocyte # (Auto) 0.04 0.00-0.02 K/uL Sodium Level 140 136-145 mmol/L Potassium Level 4.0 3.5-5.1 mmol/L Chloride Level 110 98-107 mmol/L Carbon Dioxide Level 22 21-32 mmol/L Anion Gap 8.0 3-11 mmol/L Blood Urea Nitrogen 23 7-18 mg/dl Creatinine 0.83 0.60-1.20 mg/dl Est Creatinine Clear Calc Drug Dose 84.8 ml/min Estimated GFR () 87.6 Estimated GFR (Non- 75.6 BUN/Creatinine Ratio 27.4 10-20 Random Glucose 119 70-99 mg/dl Calcium Level 8.1 8.5-10.1 mg/dl Total Bilirubin 0.3 0.2-1 mg/dl Aspartate Amino Transf (AST/SGOT) 11 15-37 U/L Alanine Aminotransferase (ALT/SGPT) 18 12-78 U/L Alkaline Phosphatase 45 45-117 U/L Total Protein 5.6 6.4-8.2 gm/dl Albumin 2.3 3.4-5.0 gm/dl Globulin 3.3 2.5-4.0 gm/dl Albumin/Globulin Ratio 0.7 0.9-2 Assessment & Plan Crohn's flare/PSBO diet advanced to full liquids this AM will need outpatient f/u, SS assisting will sign off
--- NOTE | 2016-04-29 13:25 | Family Medicine Progress Note ---
Progress Note Date of Service Apr 29, 2016. Subjective Pt evaluation today including: conversation w/ patient, physical exam, chart review, lab review, review of studies Pain: 2/10 PO Intake: WNL Voiding: no voiding problems Continues to pass gas and have bowel movements Is ready to advance her diet states that she is feeling rather well questions and concerns were addressed Constitutional: No fever Eyes: No worsening of vision ENT: No hearing loss Respiratory: No cough, No dyspnea on exertion, No shortness of breath, No sputum, No wheezing Cardiovascular: No chest pain Abdomen: + diarrhea, + pain, No constipation, No nausea, No vomiting Musculoskeletal: No joint pain, No muscle pain Neurologic: No balance problems, No memory loss, No weakness Psychiatric: No depression symptoms Endo: No fatigue Skin: No rash Medications Medications Administered Medications (Trade) Dose Ordered Sig/Rachael Route Start Time Stop Time Status Last Admin Dose Admin Sodium Chloride (Nss 500ml) 500 ml @ 999 mls/hr Q31M STAT IV 04/27/16 02:31 04/27/16 03:01 DC 04/27/16 02:45 999 MLS/HR Ondansetron HCl (Zofran Inj) 4 mg NOW STAT IV 04/27/16 02:31 04/27/16 02:33 DC 04/27/16 02:47 4 MG Morphine Sulfate 4 mg 4 mg NOW STAT IV 04/27/16 02:31 04/27/16 02:33 DC 04/27/16 02:48 4 MG Sodium Chloride (Nss 500ml) 500 ml @ 999 mls/hr Q31M STAT IV 04/27/16 03:31 04/27/16 04:01 DC 04/27/16 04:17 999 MLS/HR Hydromorphone HCl 1 mg 1 mg NOW STAT IV 04/27/16 03:58 04/27/16 04:00 DC 04/27/16 04:47 1 MG Prochlorperazine Edisylate 10 mg/ Syringe 10 ml @ 5 mls/min TODAY@0445 IV 04/27/16 04:45 04/27/16 05:30 DC 04/27/16 04:43 5 MLS/MIN Potassium Chloride/Sodium Chloride 1,000 ml @ 150 mls/hr Q6H40M IV 04/27/16 06:45 04/28/16 09:49 DC 04/28/16 03:12 150 MLS/HR Methylprednisolone Sodium Succinate/ Syringe (Solu-Medrol IV/ Syringe) 0.64 ml @ 1.5 mls/min Q12H IV 04/27/16 06:30 04/27/16 12:23 DC 04/27/16 06:46 1.5 MLS/MIN Hydromorphone HCl 1 mg 1 mg Q4H PRN IV 04/27/16 06:45 05/11/16 06:44 04/28/16 03:24 1 MG Sodium Chloride 1,000 ml @ 999 mls/hr Q1H1M ONCE IV 04/27/16 12:00 04/27/16 13:00 DC 04/27/16 12:30 999 MLS/HR Methylprednisolone Sodium Succinate/ Syringe (Solu-Medrol IV/ Syringe) 0.96 ml @ 1.5 mls/min Q6 IV 04/27/16 12:30 04/28/16 09:50 DC 04/28/16 05:47 1.5 MLS/MIN Acetaminophen (Tylenol Tab) 650 mg STK-MED ONCE .ROUTE 04/28/16 08:05 04/28/16 08:08 DC 04/28/16 08:11 650 MG Acetaminophen 650 mg 650 mg Q6H PRN PO 04/28/16 08:30 05/28/16 08:29 04/28/16 20:15 650 MG Sodium Chloride 1,000 ml @ 100 mls/hr Q10H IV 04/28/16 10:00 05/28/16 09:59 04/29/16 05:31 100 MLS/HR Methylprednisolone Sodium Succinate/ Syringe (Solu-Medrol IV/ Syringe) 0.96 ml @ 1.5 mls/min BID IV 04/28/16 21:00 05/28/16 20:59 04/29/16 08:35 1.5 MLS/MIN Ondansetron HCl (Zofran Inj) 4 mg NOW STAT IV 04/28/16 22:06 04/28/16 22:22 DC 04/28/16 22:27 4 MG Objective Vital Signs Date Time Temp Pulse Resp B/P Pulse Ox O2 Delivery O2 Flow Rate FiO2 04/29/16 08:03 Room Air 04/29/16 07:16 36.7 71 16 112/68 94 Room Air 04/28/16 23:55 Room Air 04/28/16 23:31 36.8 74 16 99/61 93 Room Air 04/28/16 15:30 Room Air 04/28/16 15:30 36.8 78 21 108/66 93 Room Air Physical Exam General Appearance: no apparent distress, + obese Eyes: normal inspection ENT: normal ENT inspection Neck: supple Respiratory/Chest: normal breath sounds, no respiratory distress, no accessory muscle use, + decreased breath sounds (bilat bases) Cardiovascular: regular rate, rhythm, no murmur Abdomen: normal bowel sounds, non tender, soft Extremities: non-tender, normal inspection, no pedal edema, no calf tenderness Neurologic/Psychiatric: alert, normal mood/affect, oriented x 3 Skin: normal color, warm/dry, no rash Lymphatic: no adenopathy Laboratory Results Results Past 24 Hours Test 04/29/16 06:19 Range/Units White Blood Count 7.59 4.8-10.8 K/uL Red Blood Count 4.27 4.2-5.4 M/uL Hemoglobin 13.2 12.0-16.0 g/dL Hematocrit 38.5 37-47 % Mean Corpuscular Volume 90.2 80-100 fL Mean Corpuscular Hemoglobin 30.9 25-34 pg Mean Corpuscular Hemoglobin Concent 34.3 32-36 g/dl Platelet Count 204 130-400 K/uL Mean Platelet Volume 9.1 7.4-10.4 fL Neutrophils (%) (Auto) 86.4 % Lymphocytes (%) (Auto) 9.2 % Monocytes (%) (Auto) 3.8 % Eosinophils (%) (Auto) 0.0 % Basophils (%) (Auto) 0.1 % Neutrophils # (Auto) 6.55 1.4-6.5 K/uL Lymphocytes # (Auto) 0.70 1.2-3.4 K/uL Monocytes # (Auto) 0.29 0.11-0.59 K/uL Eosinophils # (Auto) 0.00 0-0.5 K/uL Basophils # (Auto) 0.01 0-0.2 K/uL RDW Standard Deviation 45.9 36.4-46.3 fL RDW Coefficient of Variation 13.9 11.5-14.5 % Immature Granulocyte % (Auto) 0.5 % Immature Granulocyte # (Auto) 0.04 0.00-0.02 K/uL Sodium Level 140 136-145 mmol/L Potassium Level 4.0 3.5-5.1 mmol/L Chloride Level 110 98-107 mmol/L Carbon Dioxide Level 22 21-32 mmol/L Anion Gap 8.0 3-11 mmol/L Blood Urea Nitrogen 23 7-18 mg/dl Creatinine 0.83 0.60-1.20 mg/dl Est Creatinine Clear Calc Drug Dose 84.8 ml/min Estimated GFR () 87.6 Estimated GFR (Non- 75.6 BUN/Creatinine Ratio 27.4 10-20 Random Glucose 119 70-99 mg/dl Calcium Level 8.1 8.5-10.1 mg/dl Total Bilirubin 0.3 0.2-1 mg/dl Aspartate Amino Transf (AST/SGOT) 11 15-37 U/L Alanine Aminotransferase (ALT/SGPT) 18 12-78 U/L Alkaline Phosphatase 45 45-117 U/L Total Protein 5.6 6.4-8.2 gm/dl Albumin 2.3 3.4-5.0 gm/dl Globulin 3.3 2.5-4.0 gm/dl Albumin/Globulin Ratio 0.7 0.9-2 Assessment and Plan 61 yo F with Crohn's disease who presents with small bowel obstruction. She does not have good follow up in the outpatient setting because of concerns with insurance. General surgery does not recommend any surgical intervention as of yet. She has started to pass gas and had a BM so will d/c NG tube and advance diet as tolerated at this time. SBO secondary to Crohn's (lymphadenopathy) vs malignant process - NG d/c - advance diet as tolerated - IV fluids - NSSKCL 20 @ 150cc, received 1 bolus 04/27/2016- d/c fluids - Consulted General Surgery- appreciate input - Gi consult- appreciate input - plan is to tape steroids - Had a discussion about prednisone and cost with patient, she would benefit from the four dollar list at [facility] - prescriptions available for 4 dollars: - prednisone 2.5 mg x 30 days, 5 mg x 30 days or 10 mg x 30 days -These doses are also available for 10 dollars however for a 90 days course best would be to base treatment with these doses so patient will more likely be able to afford - 1 mg dilaudid q 4 h for pain control - may consider repeat imaging once exacerbation in better control to r/o malignancy Hypotensive episode secondary to dehydration; concern for developing sepsis - continue to monitor vitals, doing well JULIETTE secondary to hypotensive episode vs IV contrast - resolvd - follow bmp Vomiting/Nausea - Zofran PRN Crohn's Disease exacerbation - Methylprednisolone 60 q bid and taper as per GI rec VTE - Heparin, SCDs Full code Resident Physician Supervision Note: I interviewed and examined the patient. Discussed with Dr. Nath and agree with findings and plan as documented in the note. Any exceptions or clarifications are listed here: None Documented By: Aime Carrillo feeling better eating better wants to try real foods. moving bowels (having some diarrhea mostl watery some blood at the end at times) and moving flatus. no nausea no vomiting vitals noted see EMR abd soft mild distention mild tender no guarding no reboudn no masses no organomegaly a/p IBD flare w SBO _ improving - advance diet, continue steroids hypotension - due to hypovolemia - improved. otherwise as above Continued [facility] stay due to: multiple IV medications needed, other Discharge planning: uncertain
[2016-04-29 15:17] VITALS: BP 114/63; PULSE 63; TEMP 36.7; O2SAT 95
[2016-04-29] MEDS ORDERED: GI COCKTAIL PO STA (21:53)
[2016-04-29] MEDS ORDERED: ALUMINUM/MAGNESIUM SUSP 18 ML, LIDOCAINE HCL 2% VISCOUS SOLN 6 ML, BARCODE IDENTIFIER 1 EA PO STA ×2 (21:58)
[2016-04-29 23:40] VITALS: BP 129/65; PULSE 57; TEMP 36.8; O2SAT 92
[2016-04-30 06:29] LABS: COMPLETE YES; HEMATOCRIT 38.2 % (37-47); IG% 0.3 %; LYMPH % 12.5 %; LYMPH ABS # 0.78 K/uL (1.2-3.4); MEAN CORPUSCULAR HEMOGLOBIN 31.4 pg (25-34); MEAN CORPUSCULAR HGB CONC 34.6 g/dl (32-36); MEAN PLATELET VOLUME 9.4 fL (7.4-10.4); MONO % 4.5 %; NEUT % 82.7 %; PLATELET COUNT 200 K/uL (130-400); WHITE BLOOD COUNT 6.23 K/uL (4.8-10.8)
[2016-04-30 07:03] LABS: CREATININE 0.92 mg/dl (0.60-1.20)
[2016-04-30 07:04] LABS: BUN/CREATININE RATIO 21.6 (10-20); CALCIUM 8.5 mg/dl (8.5-10.1); POTASSIUM 4.4 mmol/L (3.5-5.1)
[2016-04-30 07:06] LABS: ALB/GLOB RATIO 0.7 (0.9-2)
[2016-04-30 07:18] VITALS: BP 128/78; PULSE 61; TEMP 36.6; O2SAT 93
--- NOTE | 2016-04-30 08:44 | Family Medicine Progress Note ---
Progress Note Date of Service Apr 30, 2016. Subjective Pt evaluation today including: conversation w/ patient, physical exam, chart review, lab review, review of studies Pain: 0/10 PO Intake: WNL Voiding: no voiding problems Patient states that when attempting to try a regular meal at lunch and dinner yesterday she had cramps and worsening diarrhea and gas currently this morning she does not have any and she did eat her oatmeal and tolerated that Constitutional: No fever Eyes: No worsening of vision ENT: No hearing loss Respiratory: No cough, No dyspnea on exertion, No shortness of breath, No sputum, No wheezing Cardiovascular: No chest pain Abdomen: + diarrhea, + pain, No constipation, No nausea, No vomiting Musculoskeletal: No joint pain, No muscle pain Female : No dysuria Neurologic: No balance problems, No numbness/tingling, No weakness Psychiatric: No depression symptoms Heme: No abnormal bleeding/bruising Endo: No fatigue Skin: No rash Medications Medications Administered Medications (Trade) Dose Ordered Sig/Rachael Route Start Time Stop Time Status Last Admin Dose Admin Sodium Chloride (Nss 500ml) 500 ml @ 999 mls/hr Q31M STAT IV 04/27/16 02:31 04/27/16 03:01 DC 04/27/16 02:45 999 MLS/HR Ondansetron HCl (Zofran Inj) 4 mg NOW STAT IV 04/27/16 02:31 04/27/16 02:33 DC 04/27/16 02:47 4 MG Morphine Sulfate 4 mg 4 mg NOW STAT IV 04/27/16 02:31 04/27/16 02:33 DC 04/27/16 02:48 4 MG Sodium Chloride (Nss 500ml) 500 ml @ 999 mls/hr Q31M STAT IV 04/27/16 03:31 04/27/16 04:01 DC 04/27/16 04:17 999 MLS/HR Hydromorphone HCl 1 mg 1 mg NOW STAT IV 04/27/16 03:58 04/27/16 04:00 DC 04/27/16 04:47 1 MG Prochlorperazine Edisylate 10 mg/ Syringe 10 ml @ 5 mls/min TODAY@0445 IV 04/27/16 04:45 04/27/16 05:30 DC 04/27/16 04:43 5 MLS/MIN Potassium Chloride/Sodium Chloride 1,000 ml @ 150 mls/hr Q6H40M IV 04/27/16 06:45 04/28/16 09:49 DC 04/28/16 03:12 150 MLS/HR Methylprednisolone Sodium Succinate/ Syringe (Solu-Medrol IV/ Syringe) 0.64 ml @ 1.5 mls/min Q12H IV 04/27/16 06:30 04/27/16 12:23 DC 04/27/16 06:46 1.5 MLS/MIN Hydromorphone HCl 1 mg 1 mg Q4H PRN IV 04/27/16 06:45 05/11/16 06:44 04/28/16 03:24 1 MG Sodium Chloride 1,000 ml @ 999 mls/hr Q1H1M ONCE IV 04/27/16 12:00 04/27/16 13:00 DC 04/27/16 12:30 999 MLS/HR Methylprednisolone Sodium Succinate/ Syringe (Solu-Medrol IV/ Syringe) 0.96 ml @ 1.5 mls/min Q6 IV 04/27/16 12:30 04/28/16 09:50 DC 04/28/16 05:47 1.5 MLS/MIN Acetaminophen (Tylenol Tab) 650 mg STK-MED ONCE .ROUTE 04/28/16 08:05 04/28/16 08:08 DC 04/28/16 08:11 650 MG Acetaminophen 650 mg 650 mg Q6H PRN PO 04/28/16 08:30 05/28/16 08:29 04/28/16 20:15 650 MG Sodium Chloride 1,000 ml @ 100 mls/hr Q10H IV 04/28/16 10:00 04/29/16 13:26 DC 04/29/16 05:31 100 MLS/HR Methylprednisolone Sodium Succinate/ Syringe (Solu-Medrol IV/ Syringe) 0.96 ml @ 1.5 mls/min BID IV 04/28/16 21:00 04/30/16 07:01 DC 04/29/16 21:02 1.5 MLS/MIN Ondansetron HCl 4 mg NOW STAT IV 04/28/16 22:06 04/28/16 22:22 DC 04/28/16 22:27 4 MG Al Hydroxide/Mg Hydroxide/ Lidocaine HCl/ Barcode (Maalox Susp/ Viscous Lidocaine 2% Soln) NOW STAT PO 04/29/16 21:58 04/29/16 21:59 DC 04/29/16 22:17 30 ML Objective Vital Signs Date Time Temp Pulse Resp B/P Pulse Ox O2 Delivery O2 Flow Rate FiO2 04/30/16 07:18 36.6 61 18 128/78 93 Room Air 04/29/16 23:40 36.8 57 16 129/65 92 Room Air 04/29/16 23:32 Room Air 04/29/16 15:45 Room Air 04/29/16 15:17 36.7 63 17 114/63 95 Room Air Physical Exam General Appearance: no apparent distress, + obese Eyes: normal inspection ENT: normal ENT inspection Neck: supple Respiratory/Chest: normal breath sounds, no respiratory distress, no accessory muscle use, + decreased breath sounds (bilat bases) Cardiovascular: regular rate, rhythm, no murmur Abdomen: non tender, soft, + abnormal bowel sounds (hyperactive) Extremities: normal inspection, no pedal edema, no calf tenderness Neurologic/Psychiatric: alert, normal mood/affect, oriented x 3 Skin: normal color, warm/dry, no rash Lymphatic: no adenopathy Laboratory Results Results Past 24 Hours Test 04/30/16 05:57 Range/Units White Blood Count 6.23 4.8-10.8 K/uL Red Blood Count 4.20 4.2-5.4 M/uL Hemoglobin 13.2 12.0-16.0 g/dL Hematocrit 38.2 37-47 % Mean Corpuscular Volume 91.0 80-100 fL Mean Corpuscular Hemoglobin 31.4 25-34 pg Mean Corpuscular Hemoglobin Concent 34.6 32-36 g/dl Platelet Count 200 130-400 K/uL Mean Platelet Volume 9.4 7.4-10.4 fL Neutrophils (%) (Auto) 82.7 % Lymphocytes (%) (Auto) 12.5 % Monocytes (%) (Auto) 4.5 % Eosinophils (%) (Auto) 0.0 % Basophils (%) (Auto) 0.0 % Neutrophils # (Auto) 5.15 1.4-6.5 K/uL Lymphocytes # (Auto) 0.78 1.2-3.4 K/uL Monocytes # (Auto) 0.28 0.11-0.59 K/uL Eosinophils # (Auto) 0.00 0-0.5 K/uL Basophils # (Auto) 0.00 0-0.2 K/uL RDW Standard Deviation 45.6 36.4-46.3 fL RDW Coefficient of Variation 13.6 11.5-14.5 % Immature Granulocyte % (Auto) 0.3 % Immature Granulocyte # (Auto) 0.02 0.00-0.02 K/uL Sodium Level 138 136-145 mmol/L Potassium Level 4.4 3.5-5.1 mmol/L Chloride Level 108 98-107 mmol/L Carbon Dioxide Level 22 21-32 mmol/L Anion Gap 8.0 3-11 mmol/L Blood Urea Nitrogen 20 7-18 mg/dl Creatinine 0.92 0.60-1.20 mg/dl Est Creatinine Clear Calc Drug Dose 76.5 ml/min Estimated GFR () 77.3 Estimated GFR (Non- 66.7 BUN/Creatinine Ratio 21.6 10-20 Random Glucose 124 70-99 mg/dl Calcium Level 8.5 8.5-10.1 mg/dl Total Bilirubin 0.3 0.2-1 mg/dl Aspartate Amino Transf (AST/SGOT) 17 15-37 U/L Alanine Aminotransferase (ALT/SGPT) 31 12-78 U/L Alkaline Phosphatase 52 45-117 U/L Total Protein 5.7 6.4-8.2 gm/dl Albumin 2.4 3.4-5.0 gm/dl Globulin 3.3 2.5-4.0 gm/dl Albumin/Globulin Ratio 0.7 0.9-2 Microbiology Results 04/29/16 C.difficile Toxin B Gene (PCR) - Final, Complete No C. difficile toxin B gene detected Assessment and Plan 61 yo F with Crohn's disease who presents with small bowel obstruction. She does not have good follow up in the outpatient setting because of concerns with insurance. General surgery does not recommend any surgical intervention as of yet. She has started to pass gas and had a BM so will d/c NG tube and advance diet as tolerated at this time. SBO secondary to Crohn's (lymphadenopathy) vs malignant process - NG d/c - advance diet as tolerated - IV fluids - NSSKCL 20 @ 150cc, received 1 bolus 04/27/2016- d/c fluids - Consulted General Surgery- appreciate input - Gi consult- appreciate input - plan is to tape steroids - Had a discussion about prednisone and cost with patient, she would benefit from the four dollar list at [facility] - prescriptions available for 4 dollars: - prednisone 2.5 mg x 30 days, 5 mg x 30 days or 10 mg x 30 days -These doses are also available for 10 dollars however for a 90 days course best would be to base treatment with these doses so patient will more likely be able to afford - 1 mg dilaudid q 4 h for pain control - may consider repeat imaging once exacerbation in better control to r/o malignancy Diarrhea most likely secondary to Crohn's ; concern for stricture - C diff negative - will continue to monitor - will try full liquid diet today and progress as tolerated Hypotensive episode secondary to dehydration; concern for developing sepsis - continue to monitor vitals, doing well JULIETTE secondary to hypotensive episode vs IV contrast - resolved - follow bmp Vomiting/Nausea - Zofran PRN Crohn's Disease exacerbation - Methylprednisolone 40 bid and taper as per GI rec VTE - Heparin, SCDs Full code Resident Physician Supervision Note: I interviewed and examined the patient. Discussed with [Portillo] and agree with findings and plan as documented in the note. Any exceptions or clarifications are listed here: [None] Documented By: Aime Carrillo was worse w more solid food. now reduced diet sitting better again. extensive discussion on SBO, IBD causing SBO, and imrpovement vs stalling out w outside concern on ?does she have a stricture vitals noted, see EMR. abd soft mild distention minimal tenderness no guarding no rebound IBD w SBO - steroids, will retry on slowly advancing diet, but if worsens/keeps hitting a "ceiling" w anything remotely solid, will have to consider repeat CT vs surgical eval. hopefully will imrpove again Continued [facility] stay due to: other Discharge planning: uncertain
[2016-04-30] MEDS: METHYLPREDNISOLONE IV 40 MG in SYRINGE 0 ML IV SCH ×2 (08:46→22:34)
[2016-04-30] MEDS: ACETAMINOPHEN 325 MG TAB PO PRN ×2 (08:49→22:35)
[2016-04-30 15:54] VITALS: BP 151/80; PULSE 56; TEMP 36.6; O2SAT 96
[2016-04-30 16:56] VITALS: BP 132/82
[2016-04-30] MEDS ORDERED: NURSING VERBAL MED ORDER ONE ×2 (21:00→22:15)
[2016-04-30] MEDS: NICOTINE 14 MG/24 HR TDSY TD SCH (21:47)
[2016-04-30] MEDS ORDERED: ALUMINUM/MAGNESIUM SUSP 18 ML, LIDOCAINE HCL 2% VISCOUS SOLN 6 ML, BARCODE IDENTIFIER 1 EA PO ONE ×2 (22:30)
[2016-04-30 23:27] VITALS: BP 149/83; PULSE 52; TEMP 36.4; O2SAT 97
[2016-05-01 07:08] VITALS: BP 151/78; PULSE 48; TEMP 36.6; O2SAT 96
[2016-05-01 07:26] LABS: MEAN CELL VOLUME 92.1 fL (80-100); MEAN CORPUSCULAR HEMOGLOBIN 31.7 pg (25-34); MEAN CORPUSCULAR HGB CONC 34.4 g/dl (32-36); MEAN PLATELET VOLUME 9.6 fL (7.4-10.4); PLATELET COUNT 195 K/uL (130-400); RED BLOOD COUNT 4.45 M/uL (4.2-5.4); WHITE BLOOD COUNT 4.82 K/uL (4.8-10.8)
[2016-05-01 07:59] LABS: BUN/CREATININE RATIO 24.6 (10-20); CALCIUM 9.2 mg/dl (8.5-10.1); CREATININE 0.85 mg/dl (0.60-1.20); POTASSIUM 4.8 mmol/L (3.5-5.1)
[2016-05-01 08:01] LABS: ALB/GLOB RATIO 0.8 (0.9-2)
[2016-05-01] MEDS: METHYLPREDNISOLONE IV 40 MG in SYRINGE 0 ML IV SCH ×2 (09:42→20:34)
--- NOTE | 2016-05-01 12:45 | Family Medicine Progress Note ---
Progress Note Date of Service May 01, 2016. Subjective Pt evaluation today including: conversation w/ patient, physical exam, chart review, lab review, review of studies Pain: 0/10 tolerating the meals currently and has not had another episode of spasmatic pain , to note patient has only been on a full liquid diet she would like to try transitioning again this afternoon She did get tearful this afternoon discussing her dog which she had to put down recently however denies any depression or depressed mood Constitutional: No fever Eyes: No worsening of vision ENT: No hearing loss Respiratory: No cough, No dyspnea on exertion, No shortness of breath, No sputum, No wheezing Cardiovascular: No chest pain Abdomen: No constipation, No diarrhea, No nausea, No pain, No vomiting Musculoskeletal: No joint pain, No muscle pain Neurologic: No balance problems, No weakness Psychiatric: No depression symptoms Endo: No fatigue Skin: No rash Medications Medications Administered Medications (Trade) Dose Ordered Sig/Rachael Route Start Time Stop Time Status Last Admin Dose Admin Sodium Chloride (Nss 500ml) 500 ml @ 999 mls/hr Q31M STAT IV 04/27/16 02:31 04/27/16 03:01 DC 04/27/16 02:45 999 MLS/HR Ondansetron HCl (Zofran Inj) 4 mg NOW STAT IV 04/27/16 02:31 04/27/16 02:33 DC 04/27/16 02:47 4 MG Morphine Sulfate 4 mg 4 mg NOW STAT IV 04/27/16 02:31 04/27/16 02:33 DC 04/27/16 02:48 4 MG Sodium Chloride (Nss 500ml) 500 ml @ 999 mls/hr Q31M STAT IV 04/27/16 03:31 04/27/16 04:01 DC 04/27/16 04:17 999 MLS/HR Hydromorphone HCl 1 mg 1 mg NOW STAT IV 04/27/16 03:58 04/27/16 04:00 DC 04/27/16 04:47 1 MG Prochlorperazine Edisylate 10 mg/ Syringe 10 ml @ 5 mls/min TODAY@0445 IV 04/27/16 04:45 04/27/16 05:30 DC 04/27/16 04:43 5 MLS/MIN Potassium Chloride/Sodium Chloride 1,000 ml @ 150 mls/hr Q6H40M IV 04/27/16 06:45 04/28/16 09:49 DC 04/28/16 03:12 150 MLS/HR Methylprednisolone Sodium Succinate/ Syringe (Solu-Medrol IV/ Syringe) 0.64 ml @ 1.5 mls/min Q12H IV 04/27/16 06:30 04/27/16 12:23 DC 04/27/16 06:46 1.5 MLS/MIN Hydromorphone HCl 1 mg 1 mg Q4H PRN IV 04/27/16 06:45 05/11/16 06:44 04/28/16 03:24 1 MG Sodium Chloride 1,000 ml @ 999 mls/hr Q1H1M ONCE IV 04/27/16 12:00 04/27/16 13:00 DC 04/27/16 12:30 999 MLS/HR Methylprednisolone Sodium Succinate/ Syringe (Solu-Medrol IV/ Syringe) 0.96 ml @ 1.5 mls/min Q6 IV 04/27/16 12:30 04/28/16 09:50 DC 04/28/16 05:47 1.5 MLS/MIN Acetaminophen (Tylenol Tab) 650 mg STK-MED ONCE .ROUTE 04/28/16 08:05 04/28/16 08:08 DC 04/28/16 08:11 650 MG Acetaminophen 650 mg 650 mg Q6H PRN PO 04/28/16 08:30 05/28/16 08:29 04/30/16 22:35 650 MG Sodium Chloride 1,000 ml @ 100 mls/hr Q10H IV 04/28/16 10:00 04/29/16 13:26 DC 04/29/16 05:31 100 MLS/HR Methylprednisolone Sodium Succinate/ Syringe (Solu-Medrol IV/ Syringe) 0.96 ml @ 1.5 mls/min BID IV 04/28/16 21:00 04/30/16 07:01 DC 04/29/16 21:02 1.5 MLS/MIN Ondansetron HCl (Zofran Inj) 4 mg NOW STAT IV 04/28/16 22:06 04/28/16 22:22 DC 04/28/16 22:27 4 MG Ondansetron HCl 4 mg Q6H PRN IV 04/28/16 22:15 05/28/16 22:14 04/30/16 08:48 4 MG Al Hydroxide/Mg Hydroxide 18 ml/ Lidocaine HCl 6 ml/Barcode 1 ea NOW STAT PO 04/29/16 21:58 04/29/16 21:59 DC 04/29/16 22:17 30 ML Methylprednisolone Sodium Succinate/ Syringe (Solu-Medrol IV/ Syringe) 0.64 ml @ 1.5 mls/min BID IV 04/30/16 09:00 05/30/16 08:59 05/01/16 09:42 1.5 MLS/MIN Nicotine 1 patch DAILY@2100 TD 04/30/16 21:30 05/30/16 21:29 04/30/16 21:47 1 PATCH Al Hydroxide/Mg Hydroxide/ Lidocaine HCl/ Barcode (Maalox Susp/ Viscous Lidocaine 2% Soln) 2230 ONCE PO 04/30/16 22:30 04/30/16 22:31 DC 05/01/16 00:24 24 ML Objective Vital Signs Date Time Temp Pulse Resp B/P Pulse Ox O2 Delivery O2 Flow Rate FiO2 05/01/16 12:00 Room Air 05/01/16 08:00 Room Air 05/01/16 07:08 36.6 48 18 151/78 96 Room Air 05/01/16 00:30 Room Air 04/30/16 23:27 36.4 52 18 149/83 97 Room Air 04/30/16 20:25 Room Air 04/30/16 16:56 132/82 04/30/16 15:54 36.6 56 18 151/80 96 Room Air Physical Exam General Appearance: no apparent distress, + obese Eyes: normal inspection ENT: normal ENT inspection Neck: supple Respiratory/Chest: normal breath sounds, no respiratory distress, no accessory muscle use Cardiovascular: regular rate, rhythm, no murmur Abdomen: normal bowel sounds, soft, + tenderness (deep palpation only of RLQ) Extremities: non-tender, normal inspection, no pedal edema, no calf tenderness Neurologic/Psychiatric: alert, normal mood/affect, oriented x 3 Skin: normal color, warm/dry, no rash Lymphatic: no adenopathy Laboratory Results Results Past 24 Hours Test 05/01/16 07:12 Range/Units White Blood Count 4.82 4.8-10.8 K/uL Red Blood Count 4.45 4.2-5.4 M/uL Hemoglobin 14.1 12.0-16.0 g/dL Hematocrit 41.0 37-47 % Mean Corpuscular Volume 92.1 80-100 fL Mean Corpuscular Hemoglobin 31.7 25-34 pg Mean Corpuscular Hemoglobin Concent 34.4 32-36 g/dl RDW Standard Deviation 44.8 36.4-46.3 fL RDW Coefficient of Variation 13.3 11.5-14.5 % Platelet Count 195 130-400 K/uL Mean Platelet Volume 9.6 7.4-10.4 fL Sodium Level 138 136-145 mmol/L Potassium Level 4.8 3.5-5.1 mmol/L Chloride Level 105 98-107 mmol/L Carbon Dioxide Level 27 21-32 mmol/L Anion Gap 6.0 3-11 mmol/L Blood Urea Nitrogen 21 7-18 mg/dl Creatinine 0.85 0.60-1.20 mg/dl Est Creatinine Clear Calc Drug Dose 82.8 ml/min Estimated GFR () 85.1 Estimated GFR (Non- 73.4 BUN/Creatinine Ratio 24.6 10-20 Random Glucose 111 70-99 mg/dl Calcium Level 9.2 8.5-10.1 mg/dl Total Bilirubin 0.3 0.2-1 mg/dl Aspartate Amino Transf (AST/SGOT) 25 15-37 U/L Alanine Aminotransferase (ALT/SGPT) 52 12-78 U/L Alkaline Phosphatase 54 45-117 U/L Total Protein 5.9 6.4-8.2 gm/dl Albumin 2.6 3.4-5.0 gm/dl Globulin 3.3 2.5-4.0 gm/dl Albumin/Globulin Ratio 0.8 0.9-2 Assessment and Plan 61 yo F with Crohn's disease who presents with small bowel obstruction. She does not have good follow up in the outpatient setting because of concerns with insurance. General surgery does not recommend any surgical intervention as of yet. Once she started to pass gas and had a BM the NG was d/c. She did try transitioning to a full diet however she was unable to tolerate and has only been able to tolerate full liquid diet. Will repeat CT. SBO secondary to Crohn's (lymphadenopathy) vs malignant process - IV fluids - NSSKCL 20 @ 150cc, received 1 bolus 04/27/2016- d/c fluids - Consulted General Surgery- appreciate input - Gi consult- appreciate input - plan is to tape steroids - Had a discussion about prednisone and cost with patient, she would benefit from the four dollar list at [facility] - prescriptions available for 4 dollars: - prednisone 2.5 mg x 30 days, 5 mg x 30 days or 10 mg x 30 days -These doses are also available for 10 dollars however for a 90 days course best would be to base treatment with these doses so patient will more likely be able to afford - as the patient has had a very difficult time transitioning to a regular diet we will be repeating her CT abd with IV and oral contrast - 1 mg dilaudid q 4 h for pain control Diarrhea most likely secondary to Crohn's ; concern for stricture - C diff negative - will continue to monitor - will once again try regular diet however will still get repeat imaging Hypotensive episode secondary to dehydration; concern for developing sepsis; stable - continue to monitor vitals, doing well JULIETTE secondary to hypotensive episode vs IV contrast - resolved - follow bmp Vomiting/Nausea - Zofran PRN Crohn's Disease exacerbation - Methylprednisolone 40 bid and taper as per GI rec VTE - Heparin, SCDs Full code Continued [facility] stay due to: multiple IV medications needed, other Discharge planning: uncertain
[2016-05-01] MEDS ORDERED: OPTIRAY 320 IV PRN (13:00)
[2016-05-01 15:01] VITALS: BP 159/80; PULSE 55; TEMP 36.8; O2SAT 97
--- NOTE | 2016-05-01 15:51 | DIAGNOSTIC IMAGING REPORT ---
CT ABD/PELVIS IV AND ORAL CONT CLINICAL HISTORY: Small bowel obstruction. Right lower quadrant abdominal pain. COMPARISON STUDY: 04/27/2016 TECHNIQUE: Following the IV administration of 119 mL of Optiray-320, CT scan of the abdomen and pelvis was performed from the lung bases to the proximal femurs. Images are reviewed in the axial, sagittal, and coronal planes. IV contrast was administered without complication. CT DOSE: 1671.79 mGy.cm FINDINGS: Lower chest: The heart is normal in size and configuration, without pericardial effusion. The lung bases and pleural spaces are clear. Liver: There is mild hepatic steatosis. No focal masses are visualized. There is no ductal dilatation. Gallbladder: Unremarkable. Spleen: Normal in size and attenuation. Pancreas: Unremarkable. Adrenal glands: There is a 1 cm right adrenal adenoma. Kidneys: There is symmetric renal cortical enhancement. The kidneys are normal in size without hydronephrosis. Bowel: There is sigmoid diverticulosis. There are no acute peridiverticular inflammatory changes. There is decreasing small bowel dilatation. Multiple small bowel air-fluid levels are still visualized. There is mild bowel wall thickening within a distal ileal loop at the site of caliber transition. There is persistent nodularity in the adjacent mesentery. Peritoneum: There is no intraperitoneal free air or abdominal ascites. Vasculature: The abdominal aorta is normal in course and caliber. Adenopathy: There is persistent nonspecific nodularity within the peritoneum of the right lower quadrant. This could be inflammatory or neoplastic. Pelvic viscera: The bladder, and pelvic viscera are unremarkable. Skeletal structures: No destructive osseous lesions are seen. IMPRESSION: 1. Persistent but improving partial small bowel obstruction at the level of the mid to distal ileum. There is bowel wall thickening involving the transition point. There is nodularity within the adjacent mesentery. It is unclear whether this is inflammatory or neoplastic. Electronically signed by: Sacha Cash M.D. 05/01/2016 3:49 PM Dictated Date/Time: 05/01/2016 3:41 PM
[2016-05-01] MEDS: NICOTINE 14 MG/24 HR TDSY TD SCH (20:33)
[2016-05-01] MEDS: ACETAMINOPHEN 325 MG TAB PO PRN (20:38)
[2016-05-01 20:54] VITALS: O2SAT 97
[2016-05-01] MEDS ORDERED: NURSING VERBAL MED ORDER ONE (22:00)
[2016-05-01] MEDS ORDERED: ALUMINUM/MAGNESIUM SUSP 18 ML, LIDOCAINE HCL 2% VISCOUS SOLN 6 ML, BARCODE IDENTIFIER 1 EA PO ONE ×2 (22:15)
[2016-05-01 22:55] VITALS: BP 144/86; PULSE 46; TEMP 36.7; O2SAT 97
[2016-05-02] MEDS ORDERED: NURSING DECISION MEDICATION ORDER SCH (00:30)
[2016-05-02] MEDS ORDERED: COUGH DROP (SUGAR FREE) LOZ 24 LOZ/1 BOX PO PRN (01:15)
[2016-05-02 07:16] LABS: HEMATOCRIT 41.3 % (37-47); MEAN CELL VOLUME 90.4 fL (80-100); MEAN CORPUSCULAR HEMOGLOBIN 31.3 pg (25-34); MEAN CORPUSCULAR HGB CONC 34.6 g/dl (32-36); MEAN PLATELET VOLUME 9.9 fL (7.4-10.4); PLATELET COUNT 207 K/uL (130-400); RED BLOOD COUNT 4.57 M/uL (4.2-5.4); WHITE BLOOD COUNT 7.01 K/uL (4.8-10.8)
[2016-05-02 07:17] VITALS: BP 138/74; PULSE 49; TEMP 36.5; O2SAT 95
[2016-05-02 07:51] LABS: BUN/CREATININE RATIO 25.9 (10-20); CREATININE 0.82 mg/dl (0.60-1.20); POTASSIUM 4.3 mmol/L (3.5-5.1)
[2016-05-02 07:54] LABS: ALB/GLOB RATIO 0.9 (0.9-2)
[2016-05-02] MEDS: ASPIRIN 81 MG ECTAB PO SCH (09:00)
[2016-05-02] MEDS: METHYLPREDNISOLONE IV 40 MG in SYRINGE 0 ML IV SCH ×2 (09:01→20:46)
[2016-05-02] MEDS ORDERED: CHLORASEPTIC 1.4% SOLN 180 ML BTL MT PRN (10:30)
[2016-05-02] MEDS ORDERED: FUROSEMIDE 20 MG TAB PO ONE (11:30)
--- NOTE | 2016-05-02 12:19 | Progress Note ---
Subjective Date of Service: May 02, 2016. Subjective Pt evaluation today including: conversation w/ patient, physical exam, review of studies, review of inpatient medication list Pain: less abdominal pain today PO Intake: tolerating regular consistency Voiding: no voiding problems patient doing better overall from GI standpoint tolerating regular foods, no vomiting today moved bowels, was mostly the PO contrast today she c/o insomnia and sore throat her legs are slightly more edematous than usual, she has them propped up she is ambulating in the halls Problem List Medical Problems: (1) Diarrhea Status: Acute (2) Fistula of intestine, excluding rectum and anus Status: Acute (3) Small bowel obstruction Status: Acute (4) Small bowel obstruction Status: Acute Review of Systems Constitutional: + fatigue, + weakness ENT: + sore throat Cardiac: + edema Abdomen: + diarrhea, + pain (RLQ, mild) Psychiatric: + insomnia All Other Systems: Reviewed and Negative Medications Current Inpatient Medications Medications (Trade) Dose Ordered Sig/Rachael Route Start Time Stop Time Status Last Admin Dose Admin Hydromorphone HCl (Dilaudid Inj) 1 mg Q4H PRN IV 04/27/16 06:45 05/11/16 06:44 04/28/16 03:24 1 MG Acetaminophen (Tylenol Tab) 650 mg Q6H PRN PO 04/28/16 08:30 05/28/16 08:29 05/01/16 20:38 650 MG Ondansetron HCl 4 mg 4 mg Q6H PRN IV 04/28/16 22:15 05/28/16 22:14 04/30/16 08:48 4 MG Methylprednisolone Sodium Succinate/ Syringe (Solu-Medrol IV/ Syringe) 0.64 ml @ 1.5 mls/min BID IV 04/30/16 09:00 05/30/16 08:59 05/02/16 09:01 1.5 MLS/MIN Nicotine (Nicoderm Cq 14MG Patch) 1 patch DAILY@2099 TD 04/30/16 21:30 05/30/16 21:29 04/30/16 21:47 1 PATCH Miscellaneous (Remove Nicoderm Patch) 1 ea DAILY@2058 N/A 05/01/16 20:59 05/31/16 20:58 05/01/16 20:33 1 EA Aspirin (Ecotrin Tab) 81 mg QAM PO 3/25/17 09:00 06/01/16 08:59 05/02/16 09:00 81 MG Ioversol (Optiray 320) 125 ml UD PRN IV 05/01/16 13:00 05/05/16 12:59 Menthol (Nice Earl) 1 aerl PRN PRN PO 05/02/16 01:15 06/01/16 01:14 05/02/16 01:16 1 EARL Phenol (Chloraseptic 1.4% Bock) 2 sprays Q4 PRN MT 05/02/16 10:30 06/01/16 10:29 Lorazepam (Ativan Tab) 1 mg HS PRN PO 05/02/16 10:30 06/01/16 10:29 Objective Vital Signs Date Time Temp Pulse Resp B/P Pulse Ox O2 Delivery O2 Flow Rate FiO2 05/02/16 08:15 Room Air 05/02/16 07:17 36.5 49 17 138/74 95 Room Air 05/01/16 23:50 Room Air 05/01/16 22:55 36.7 46 18 144/86 97 Room Air 05/01/16 20:54 97 Room Air 2.0 05/01/16 17:06 Room Air 05/01/16 15:01 36.8 55 18 159/80 97 Room Air Physical Exam General Appearance: WD/WN, no apparent distress Eyes: normal inspection, EOMI, sclerae normal ENT: normal ENT inspection, hearing grossly normal, pharynx normal Neck: supple, no adenopathy, no JVD, trachea midline Respiratory/Chest: chest non-tender, lungs clear, normal breath sounds, no respiratory distress, no accessory muscle use Cardiovascular: regular rate, rhythm, no gallop, no JVD, no murmur Abdomen: normal bowel sounds, soft, no organomegaly, + tenderness (RLQ, minimal , no rebound or rigidity) Extremities: normal range of motion, non-tender, normal inspection, no calf tenderness, pelvis stable, + pedal edema (1 plus pitting edema bilaterally) 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, no motor/sensory deficits, alert, normal mood/affect, oriented x 3 Skin: normal color, warm/dry, no rash Lymphatic: no adenopathy Laboratory Results Last 24 Hours Test 05/02/16 06:46 White Blood Count 7.01 K/uL Red Blood Count 4.57 M/uL Hemoglobin 14.3 g/dL Hematocrit 41.3 % Mean Corpuscular Volume 90.4 fL Mean Corpuscular Hemoglobin 31.3 pg Mean Corpuscular Hemoglobin Concent 34.6 g/dl RDW Standard Deviation 42.9 fL RDW Coefficient of Variation 13.0 % Platelet Count 207 K/uL Mean Platelet Volume 9.9 fL Sodium Level 138 mmol/L Potassium Level 4.3 mmol/L Chloride Level 104 mmol/L Carbon Dioxide Level 25 mmol/L Anion Gap 9.0 mmol/L Blood Urea Nitrogen 21 mg/dl Creatinine 0.82 mg/dl Est Creatinine Clear Calc Drug Dose 85.8 ml/min Estimated GFR () 88.9 Estimated GFR (Non- 76.7 BUN/Creatinine Ratio 25.9 Random Glucose 106 mg/dl Calcium Level 9.0 mg/dl Total Bilirubin 0.3 mg/dl Aspartate Amino Transf (AST/SGOT) 16 U/L Alanine Aminotransferase (ALT/SGPT) 44 U/L Alkaline Phosphatase 63 U/L Total Protein 5.7 gm/dl Albumin 2.7 gm/dl Globulin 3.0 gm/dl Albumin/Globulin Ratio 0.9 Assessment and Plan 61 yo female with history of Crohn's disease, poorly treated due to lack of insurance, presented with SBO on imaging due to Crohn's flare in small bowel, treated with NGT, bowel rest and IV steroids, GI and surgery consulted. SBO secondary to Crohn's (lymphadenopathy), less likely a malignant process since she is improving with steroids continue Solu Medrol today, change to Prednisone tomorrow as long as she tolerates all three meals today - Had a discussion about prednisone and cost with patient, she would benefit from the four dollar list at [facility] - prescriptions available for 4 dollars: - prednisone 2.5 mg x 30 days, 5 mg x 30 days or 10 mg x 30 days -These doses are also available for 10 dollars however for a 90 days course best would be to base treatment with these doses so patient will more likely be able to afford - repeat CT scan on 05/01: improved SBO, less swelling and less adenopathy compared to first CT Diarrhea most likely secondary to Crohn's ; concern for stricture - C diff negative - improving overall Hypotensive episode secondary to dehydration; concern for developing sepsis; stable - continue to monitor vitals, doing well JULIETTE secondary to hypotensive episode vs IV contrast - resolved - Cr 0.8 and electrolytes stable today Vomiting/Nausea - Zofran PRN Crohn's Disease exacerbation - Methylprednisolone 40 bid and taper as per GI rec, likely to Prednisone tomorrow Edema: due to steroids with some volume retention, give Lasix 20mg PO now Insomnia: will try Ativan 1mg PO qHS PRN for insomnia, start tonight VTE - Heparin, SCDs Plan: possible d/c tomorrow if she continues to tolerate regular diet, change to Prednisone tomorrow for long taper Continued [facility] stay due to: multiple IV medications needed, other Discharge planning: uncertain
[2016-05-02 15:00] VITALS: BP 116/67; PULSE 54; TEMP 37; O2SAT 95
[2016-05-02] MEDS: NICOTINE 14 MG/24 HR TDSY TD SCH (20:47)
[2016-05-02] MEDS: LORAZEPAM 1 MG TAB PO PRN ×2 (21:00→23:09)
[2016-05-02 23:35] VITALS: BP 119/68; PULSE 64; TEMP 36.5; O2SAT 96
[2016-05-03 07:58] VITALS: BP 135/84; PULSE 54; TEMP 36.8; O2SAT 94
[2016-05-03] MEDS: ASPIRIN 81 MG ECTAB PO SCH (09:35)
[2016-05-03] MEDS: METHYLPREDNISOLONE IV 40 MG in SYRINGE 0 ML IV SCH (09:36)
[2016-05-03] MEDS ORDERED: PRED-301 PO (10:33)
[2016-05-03] MEDS ORDERED: LORA-741 PO (10:33)
[2016-05-03 10:35] VITALS: BP 135/84; PULSE 54; TEMP 36.8; O2SAT 94
--- NOTE | 2016-05-03 10:36 | Discharge Instructions ---
Discharge Instructions Date of Service May 03, 2016. Admission Reason for Admission: SBO Discharge Discharge Diagnosis / Problem: small bowel obstruction due to Crohn's flare Discharge Goals Goal(s): Improve function, Improve disease control Activity Recommendations Activity Limitations: resume your previous activity Lifting Limitations: none Exercise/Sports Limitations: as tolerated May Resume Sexual Activity: when tolerated Shower/Bathe: no limitations Driving or Machine Use: no limitations . Instructions / Follow-Up Instructions / Follow-Up Medications: - PREDNISONE: starting tomorrow, take 40mg (8 tabs) daily x 1 weeks, decrease by one tablet every week until script finished - ATIVAN: prescribed 0.5mg at bedtime as needed for insomnia, can increase to 2 tablets if 1 tablet does not work short prescription provided, please discuss with PCP about continuing prescription further - DULCOLAX: stool softener over the counter, please take twice a day, please drink plenty of water - CITRUCEL: I know we discusses stopping this, but please continue for now three times a day, if stools become loose then can stop the Citrucel FOLLOW UP - [facility] Sesay in one week, call to make appointment Current Hospital Diet Patient's current hospital diet: AHA Diet (Heart Healthy) Discharge Diet Recommended Diet: AHA Diet (Heart Healthy) Procedures Procedures Performed: CT abdomen/pelvis on 05/01: improved small bowel obstruction, less adenopathy, Crohn's flare resolving Pending Studies Studies pending at discharge: no Laboratory Results Last Resulted CBC 05/02/16 06:46 Last Resulted BMP 05/02/16 06:46 Medical Emergencies . Who to Call and When: Medical Emergencies: If at any time you feel your situation is an emergency, please call 911 immediately. . Non-Emergent Contact Non-Emergency issues call your: Primary Care Provider Call Non-Emergent contact if: your pain is concerning you, you have any medication questions . . "Provider Documentation" section prepared by Juan Francisco Mason. VTE Core Measure Inpt VTE Proph given/why not?: SCD's [place] Drug Monitoring Program Search Results: no issues identified
--- NOTE | 2016-05-03 14:09 | Discharge Summary ---
Discharge Summary Date of Service May 03, 2016. Discharge Summary Admission Date: Apr 27, 2016 at 05:21 Discharge Date: May 03, 2016 Discharge Disposition: Home Principal Diagnosis: SBO, resolved Problems/Secondary Diagnoses: Crohn's flare Anxiety with insomnia Procedures: none Consultations: Gastroenterology Surgery Medication Reconciliation New Medications: Lorazepam (Ativan) 0.5 Mg Tab 0.5 MG PO HS PRN for Insomnia, #10 TAB Prednisone (Prednisone) 5 Mg Tab 5 MG PO UD, #165 TAB 8 tablets per day x one week, decrease by 1 tablet every week until complete Continued Medications: Aspirin (Aspirin Ec) 81 Mg Tab 81 MG PO DAILY Cyanocobalamin (Vitamin B12) 1,000 Mcg Tab 1000 MCG PO DAILY Ferrous Sulfate (Iron) 325 Mg Tab 325 MG PO DAILY Methylcellulose (Laxative) (Citrucel) 500 Mg Tab 500 MG PO TID Discontinued Medications: Prednisone (Prednisone) 1 Mg Tab 4 MG PO 5XD, TAB pt to be on med for 8 weeks presently states has 4 more weeks left. Discharge Exam patient feeling well, tolerated all three meals yesterday and breakfast this morning. also, she slept better last night with the Ativan than she has slept in weeks. discussed going home, will give her Prednisone which she can afford. knows to follow up closely with her PCP Review of Systems: Constitutional: No chills, No fatigue, No fever, No problem reported, No sweats, No weakness, No weight loss Eyes: No diplopia, No discharge, No eye pain, No problem reported, No redness, No worsening of vision ENT: No dental problems, No hearing loss, No nasal symptoms, No problem reported, No sore throat, No tinnitus, No trouble swallowing, No unusual epistaxis Respiratory: No cough, No dyspnea at rest, No dyspnea on exertion, No hemoptysis, No problem reported, No shortness of breath, No sputum, No wheezing Cardiovascular: No PND, No chest pain, No claudication, No edema, No orthopnea, No palpitations, No problem reported Abdomen: + problem reported (hard stool this AM, small amount), No GI bleeding, No constipation, No diarrhea, No nausea, No pain, No vomiting Musculoskeletal: No calf pain, No joint pain, No muscle pain, No problem reported, No swelling Genitourinary - Female: No dysuria, No hematuria, No urinary frequency, No urinary incontinence, No urinary retention, No urinary urgency Neurologic: No balance problems, No memory loss, No numbness/tingling, No paralysis, No problem reported, No vertigo, No weakness Psychiatric: No anhedonism, No anxiety, No depression symptoms, No insomnia , No problem reported, No substance abuse Endocrine: No excessive thirst, No excessive urination, No fatigue, No problem reported Hematologic / Lymphatic: No abnormal bleeding/bruising, No clotting problems , No night sweats, No problem reported, No swollen lymph nodes Integumentary: No bleeding, No color change, No itch, No new/changing skin lesions, No problem reported, No rash Physical Exam: General Appearance: no apparent distress, + obese Eyes: normal inspection, EOMI, sclerae normal ENT: normal ENT inspection, hearing grossly normal, pharynx normal Neck: supple, no adenopathy, no JVD, trachea midline Respiratory/Chest: chest non-tender, lungs clear, normal breath sounds, no respiratory distress, no accessory muscle use Cardiovascular: regular rate, rhythm, no edema, no gallop, no JVD, no murmur , normal peripheral pulses Abdomen / GI: normal bowel sounds, non tender, soft, no organomegaly Extremities: normal inspection, no calf tenderness, normal capillary refill , no pedal edema, normal range of motion, pelvis stable 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 SBO secondary to Crohn's (lymphadenopathy), less likely a malignant process since she is improving with steroids treated with Solu Medrol initially, change to Prednisone 40mg daily taper, 40mg daily x 1 weeks, decrease by 5mg a week until complete, 8 week course - repeat CT scan on 05/01: improved SBO, less swelling and less adenopathy compared to first CT - continue Citrucel TID and given script for Dulcolax stool softener daily/ BID, knows to drink a lot of water Diarrhea most likely secondary to Crohn's ; concern for stricture - C diff negative - resolved, stools actually harder today Hypotensive episode secondary to dehydration; concern for developing sepsis; resolved JULIETTE secondary to hypotensive episode vs IV contrast - resolved - Cr 0.8 and electrolytes stable on last check Vomiting/Nausea - Zofran PRN Edema: due to steroids with some volume retention, gave Lasix 20mg PO yesterday , responded well Insomnia: improved with Ativan 1mg PO last night provided with 10 day script for Ativan 0.5mg PO at bedtime if needed, can request further scripts from PCP VTE - Heparin, SCDs Plan: d/c home on Prednisone taper, stay well hydrated Total Time Spent: Greater than 30 minutes This includes examination of the patient, discharge planning, medication reconciliation, and communication with other providers. Discharge Instructions Please refer to the electronic Patient Visit Report (Discharge Instructions) for additional information. Follow-Up [facility] S[facility] in one week Additional Copies To Ulices Desir D.O.; [facility] PA-C
[2016-07-17] MEDS ORDERED: ULT50X PO (11:08)
[2016-07-17] MEDS ORDERED: CLC100 PO (11:08)
[2016-07-17] MEDS ORDERED: VTMD1000 PO (11:08)
[2016-07-17] MEDS ORDERED: NICO14DI9 TD (11:08)
[2016-07-17] MEDS ORDERED: PRT40 PO (11:08)
[2016-07-17] MEDS ORDERED: WARF4TAB PO (11:08)
[2016-07-17] MEDS ORDERED: PRED10TA PO (11:08)
[2016-07-17] MEDS ORDERED: ADAL40KI SQ (11:13)
[2016-08-18] MEDS ORDERED: LVNIS120 SQ (11:43)
[2016-08-18] MEDS ORDERED: CMD75 PO (11:43)
[2016-08-18] MEDS ORDERED: MRLP17X PO (11:52)
[2016-08-18] MEDS ORDERED: PRD10 PO (11:52)
== END 2016-05-03 12:00 | disposition home or self-care (01) | DRG 389 ==
LOC: ENRESERV → ENRESERVDT → ENRESERVTM → EDBD 02:01 → C.EDB 02:02 → C.3E 05:21 → UNDODEPER 09:00 → C.2T 13:54 → C.MSW 04-28 10:34
PROVIDERS: ADMIT Internal Medicine; ATTEND Internal Medicine
DX: K56.60 Unspecified intestinal obstruction (principal); K50.012 Crohn's disease of small intestine with intestinal obstruction; N17.9 Acute kidney failure, unspecified; T50.8X5A Adverse effect of diagnostic agents, initial encounter; F17.210 Nicotine dependence, cigarettes, uncomplicated; Z79.82 Long term (current) use of aspirin; F41.9 Anxiety disorder, unspecified; Z91.120 Patient's intentional underdosing of medication regimen due to financial hardship; G47.00 Insomnia, unspecified; E86.0 Dehydration; I95.9 Hypotension, unspecified; Y92.239 Unspecified place in hospital as the place of occurrence of the external cause; Y84.2 Radiological procedure and radiotherapy as the cause of abnormal reaction of the patient, or of later complication, without mention of misadventure at the time of the procedure; K50.014 Crohn's disease of small intestine with abscess; K50.013 Crohn's disease of small intestine with fistula; E66.9 Obesity, unspecified; I10 Essential (primary) hypertension; Z79.52 Long term (current) use of systemic steroids; E55.9 Vitamin D deficiency, unspecified; R73.9 Hyperglycemia, unspecified; Z68.36 Body mass index [BMI] 36.0-36.9, adult

== ENCOUNTER 2016-05-09 16:26 | Inpatient (IN) | payer OTHER ==
[~2016-05-09] VITALS: Ht 167.6 cm; Wt 117.0 kg
[~2016-05-09 16:26] MED LIST changes: +LORA-741 PO
--- NOTE | 2016-05-09 16:53 | EMERGENCY ROOM VISIT NOTE ---
History Report prepared by Chon: Rosaura Ware Under the Supervision of: Dr. Riley Bailon M.D. First contact with patient: 16:39 Chief Complaint: RECTAL BLEEDING Stated Complaint: RECTAL BLEEDING,ALSO HAS CRONES History of Present Illness The patient is a 61 year old female who presents to the Emergency Room with complaints of two episodes of rectal bleeding beginning last night. The patient states she had a bowel movement and noticed blood in the toilet and on the toilet paper. The same occurred this morning after she had another bowel movement. She notes that she did not strain herself during the bowel movement. The patient is also experiencing 3/10 in severity right sided abdominal pain which is consistent with her Crohn's disease. She was discharged from [facility] one week ago and is currently on Prednisone. The patient denies any other symptoms at this time. Source of History: patient Onset: last night Position: other (rectum) Symptom Intensity: 2 Quality: other (bleeding) Timing: other (episodes) Associated Symptoms: + abdominal pain Note: The patient denies any other symptoms at this time. Review of Systems See HPI for pertinent positives & negatives. A total of 10 systems reviewed and were otherwise negative. Past Medical & Surgical Medical Problems: (1) Bowel obstruction (2) Cellulitis (3) Crohn's disease involving terminal ileum (4) Crohns disease (5) Rectal bleeding (6) SBO (small bowel obstruction) Social History Smoking Status: Current Every Day Smoker Drug Use: none Marital Status: Housing Status: lives alone Occupation Status: unemployed Current/Historical Medications Scheduled Aspirin (Aspirin Ec), 81 MG PO DAILY Cyanocobalamin (Vitamin B12), 1,000 MCG PO DAILY Ferrous Sulfate (Iron), 325 MG PO DAILY Methylcellulose (Laxative) (Citrucel), 500 MG PO TID Prednisone (Prednisone), 5 MG PO UD Scheduled PRN Lorazepam (Ativan), 0.5 MG PO HS PRN for Insomnia Allergies Coded Allergies: No Known Allergies (Unverified , 04/27/16) Physical Exam Vital Signs Date Time Temp Pulse Resp B/P Pulse Ox O2 Delivery O2 Flow Rate FiO2 05/09/16 20:20 71 18 117/68 96 Room Air 05/09/16 18:30 76 05/09/16 18:26 76 20 132/77 96 Room Air 05/09/16 16:34 36.9 94 20 153/78 96 Room Air Physical Exam GENERAL: Patient is a healthy-appearing well-nourished HEAD: Normocephalic atraumatic EYES: Ocular movements intact pupils equal and react to light OROPHARYNX mucous membranes are moist no exudates present no erythema or edema present NECK: Supple no nuchal rigidity CHEST: Good equal expansion LUNGS: Clear and equal to auscultation CARDIAC: Normal S1 and S2 ABDOMEN: Soft nontender no guarding BACK: No CVA tenderness RECTAL: Heme negative. EXTREMITIES: No pain upon palpation normal muscle strength in all groups no clubbing cyanosis or edema NEURO: Patient is following commands is answering questions appropriately. Alert and oriented x3 Cranial Nerves 2-12 grossly intact Medical Decision & Procedures ER Provider Diagnostic Interpretation: CT results as stated below per my review and radiologist interpretation: CT OF THE ABDOMEN AND PELVIS WITH CONTRAST CLINICAL HISTORY: Right lower quadrant abdominal pain. Rectal bleed. Crohn's disease. COMPARISON STUDY: CT of the abdomen and pelvis May 01, 2016. TECHNIQUE: Following IV administration of 115 mL of Optiray-320, axial images of the abdomen and pelvis were obtained from the lung bases to the proximal femurs. Images were reviewed in the axial, sagittal, and coronal planes. IV contrast was administered without complication. CT DOSE: 1600.11 mGy.cm FINDINGS: The lung bases are clear. The liver, spleen, adrenal glands, kidneys and pancreas are unremarkable. There is no hydronephrosis. There is no peripancreatic or pericholecystic infiltration. Mild small bowel dilatation has improved since exam of May 01, 2016. Persistent wall thickening and hyperemia of the distal ileum is again noted. This represents the transition point. The upstream dilatation has improved since prior studies. An adjacent 3.5 x 2.3 cm mesenteric hypodensity has increased since prior exam. Tethering of small bowel loops is noted. Mesenteric infiltration is noted. There is a possible ileocolonic fistula which extends to the transverse colon. Mild wall thickening of the terminal ileum is unchanged. No additional fluid collections are present. IMPRESSION: Persistent wall thickening and hyperemia of the distal ileum which suggests active Crohn's disease. Persistent, but improving, upstream small bowel dilatation suggestive of an improving small bowel obstruction. Mild interval increase in adjacent mesenteric hypodensity which favors an inflammatory process such as phlegmon/developing abscess. No drainable collection. 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 Electronically signed by: Teddy Burger M.D. 05/09/2016 6:04 PM Dictated Date/Time: 05/09/2016 5:49 PM Laboratory Results Test 05/09/16 16:40 05/09/16 17:10 05/09/16 17:20 Urine Color YELLOW Urine Appearance CLEAR (CLEAR) Urine pH 5.5 (4.5-7.5) Urine Specific [place] 1.004 (1.000-1.030) Urine Protein NEG (NEG) Urine Glucose (UA) NEG (NEG) Urine Ketones NEG (NEG) Urine Occult Blood NEG (NEG) Urine Nitrite NEG (NEG) Urine Bilirubin NEG (NEG) Urine Urobilinogen NEG (NEG) Urine Leukocyte Esterase NEG (NEG) Lipase 194 U/L (73-393) Bedside Hemoglobin 15.0 g/dl (12.0-16.0) Bedside Hematocrit 44 % (37-47) Bedside Sodium 139 mEq/L (135-144) Bedside Potassium 4.2 mEq/L (3.3-5.0) Bedside Chloride 102 mEq/L (101-112) Bedside Total CO2 24 mEq/l (24-31) Bedside Blood Urea Nitrogen 14 mg/dl (7-18) Bedside Creatinine 0.7 mg/dl (0.6-1.3) Bedside Glucose (other) 131 mg/dl (70-99) Bedside Ionized Calcium (Oumar) 1.17 mmol/l (1.12-1.32) Medications Administered Medications (Trade) Dose Ordered Sig/Rachael Route Start Time Stop Time Status Last Admin Dose Admin Hydromorphone HCl (Dilaudid Inj) 1 mg NOW STAT IV 05/09/16 16:54 05/09/16 16:55 DC 05/09/16 17:32 1 MG Ondansetron HCl 4 mg 4 mg NOW STAT IV 05/09/16 16:54 05/09/16 16:55 DC 05/09/16 17:31 4 MG Sodium Chloride (Nss 500ml) 500 ml @ 999 mls/hr Q31M STAT IV 05/09/16 16:54 05/09/16 17:24 DC 05/09/16 17:31 999 MLS/HR Ciprofloxacin/ Dextrose (Cipro / D5w) 400 mg NOW STAT IV 05/09/16 18:28 05/09/16 18:30 DC 05/09/16 20:15 400 MG Metronidazole (Flagyl / Nss) 500 mg NOW STAT IV 05/09/16 18:28 05/09/16 18:30 DC 05/09/16 20:15 500 MG ED Course 164: Past medical records reviewed. The patient was evaluated in room B11. A complete history and physical examination was performed. 1653: Sodium Chloride 500 ml @ 999 mls/hr IV, Zofran Inj 4 mg IV, Dilaudid Inj 1 mg IV. 1821: Nicoderm Cq 21 MG Patch 1 patch TD. 1826: I discussed the patient's case with Dr. Grayson, she has agreed to evaluate the patient for further management and care. 1829: Nicorette 2 MG Gum 1 piece MT. 1834: Upon reexamination the patient is hemodynamically stable. I discussed results and treatment plan with the patient. She verbalizes agreement and understanding. I spoke with Dr. Grayson from the [facility] Hospitalist Service. The patient will be evaluated for further management. Medical Decision The patient is a 61 year old female who presents to the ED with complaints of rectal bleeding. This patient is complaining of right lower quadrant abdominal pain and has been on steroids and she left the hospital. She is concerned over the increase in pain. She is requesting Dilaudid in the emergency department. CT the abdomen and pelvis is concerning for developing phlegmon that along with the fact that the patient is on prednisone has me concerned. For this reason I did start the patient on Cipro and Flagyl. Serial abdominal examinations were performed on the patient in the emergency department and no tended the patient exhibit a surgical abdomen. Based on the patient's complicated medical history I did discuss the case with the hospitalist service who agreed to admit the patient. Patient was in agreement with the treatment plan. Consults Time Called: 1824 Consulting Physician: Dr. Grayson - [facility] Returned Call: 1826 I discussed the patient's case with Dr. Grayson, she has agreed to evaluate the patient for further management and care. Impression Primary Impression: RLQ abdominal pain Additional Impression: Rectal bleed Scribe Attestation The scribe's documentation has been prepared under my direction and personally reviewed by me in its entirety. I confirm that the note above accurately reflects all work, treatment, procedures, and medical decision making performed by me. Departure Information Dispostion Being Evaluated By Hospitalist Referrals Oc Sesay PA-C (PCP) Problem Qualifiers
[2016-05-09] MEDS ORDERED: HYDROmorphone INJ 1 MG/ML SYR IV STA (16:54)
[2016-05-09] MEDS ORDERED: SODIUM CHLORIDE 0.9% 500ML 500 ML IV STA (16:54)
[2016-05-09] MEDS ORDERED: ONDANSETRON INJ 2 MG/ML 2 ML VIAL IV STA (16:54)
[2016-05-09] MEDS ORDERED: OPTIRAY 320 IV PRN (17:00)
[2016-05-09 17:25] LABS: BASO % 0.1 %; BASO ABS # 0.01 K/uL (0-0.2); COMPLETE YES; IG% 1.1 %; LYMPH % 5.5 %; LYMPH ABS # 0.71 K/uL (1.2-3.4); MEAN CELL VOLUME 91.3 fL (80-100); MEAN CORPUSCULAR HEMOGLOBIN 31.7 pg (25-34); MEAN CORPUSCULAR HGB CONC 34.8 g/dl (32-36); MEAN PLATELET VOLUME 9.2 fL (7.4-10.4); NEUT % 91.3 %; PLATELET COUNT 248 K/uL (130-400); RED BLOOD COUNT 4.82 M/uL (4.2-5.4)
[2016-05-09 17:35] LABS: ISTAT CREATININE 0.7 mg/dl (0.6-1.3); ISTAT IONIZED CALCIUM 1.17 mmol/l (1.12-1.32)
[2016-05-09 17:46] LABS: ALT/SGPT 30 U/L (12-78); BLOOD UREA NITROGEN 13 mg/dl (7-18); BUN/CREATININE RATIO 13.2 (10-20); CALCIUM 8.9 mg/dl (8.5-10.1); CARBON DIOXIDE 24 mmol/L (21-32); CHLORIDE 107 mmol/L (98-107); CREATININE 0.96 mg/dl (0.60-1.20); GLUCOSE 127 mg/dl (70-99); SODIUM 139 mmol/L (136-145)
[2016-05-09 17:49] LABS: ALKALINE PHOSPHATASE 71 U/L (45-117)
[2016-05-09 17:58] LABS: URINE APPEARANCE CLEAR (CLEAR); URINE BILIRUBIN NEG (NEG); URINE COLOR YELLOW; URINE NITRITE NEG (NEG); URINE PH 5.5 (4.5-7.5); URINE SPECIFIC GRAVITY 1.004 (1.000-1.030); UROBILINOGEN NEG (NEG)
[2016-05-09 18:04] LABS: MANUAL MICROSCOPIC REQUIRED? NO; REVIEW REQ? NO
--- NOTE | 2016-05-09 18:05 | DIAGNOSTIC IMAGING REPORT ---
CT OF THE ABDOMEN AND PELVIS WITH CONTRAST CLINICAL HISTORY: Right lower quadrant abdominal pain. Rectal bleed. Crohn's disease. COMPARISON STUDY: CT of the abdomen and pelvis May 01, 2016. TECHNIQUE: Following IV administration of 115 mL of Optiray-320, axial images of the abdomen and pelvis were obtained from the lung bases to the proximal femurs. Images were reviewed in the axial, sagittal, and coronal planes. IV contrast was administered without complication. CT DOSE: 1600.11 mGy.cm FINDINGS: The lung bases are clear. The liver, spleen, adrenal glands, kidneys and pancreas are unremarkable. There is no hydronephrosis. There is no peripancreatic or pericholecystic infiltration. Mild small bowel dilatation has improved since exam of May 01, 2016. Persistent wall thickening and hyperemia of the distal ileum is again noted. This represents the transition point. The upstream dilatation has improved since prior studies. An adjacent 3.5 x 2.3 cm mesenteric hypodensity has increased since prior exam. Tethering of small bowel loops is noted. Mesenteric infiltration is noted. There is a possible ileocolonic fistula which extends to the transverse colon. Mild wall thickening of the terminal ileum is unchanged. No additional fluid collections are present. IMPRESSION: Persistent wall thickening and hyperemia of the distal ileum which suggests active Crohn's disease. Persistent, but improving, upstream small bowel dilatation suggestive of an improving small bowel obstruction. Mild interval increase in adjacent mesenteric hypodensity which favors an inflammatory process such as phlegmon/developing abscess. No drainable collection. 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 Electronically signed by: Teddy Burger M.D. 05/09/2016 6:04 PM Dictated Date/Time: 05/09/2016 5:49 PM
[2016-05-09] MEDS ORDERED: NICOTINE 21 MG/24 HR TDSY TD STA (18:22)
[2016-05-09] MEDS ORDERED: METRONIDAZOLE 500MG / 100ML NSS IV STA (18:28)
[2016-05-09] MEDS ORDERED: CIPROFLOXACIN 400MG / 200ML D5W IV STA (18:28)
[2016-05-09] MEDS ORDERED: NICOTINE POLACRILEX 2 MG GUM MT PRN (18:30)
[2016-05-09] MEDS ORDERED: ACETAMINOPHEN 325 MG TAB PO PRN (20:30)
[2016-05-09] MEDS ORDERED: ONDANSETRON INJ 2 MG/ML 2 ML VIAL IV PRN (20:30)
[2016-05-09 21:44] VITALS: BP 155/86; PULSE 78; TEMP 36.3; O2SAT 97; Ht 167.6 cm; Wt 117.0 kg
[2016-05-09] MEDS: LORAZEPAM 0.5 MG TAB PO PRN (23:50)
[2016-05-10] VITALS: O2SAT 97
--- NOTE | 2016-05-10 00:49 | History and Physical ---
History & Physical Date & Time of Service: May 10, 2016 at 00:29 Chief Complaint: Rectal bleeding Primary Care Physician: Oc Sesay PA-C History of Present Illness Source: patient This patient is a 61 yo female with history of Crohn's disease, poorly treated due to lack of insurance, who was recently admitted and discharged 1 week ago with SBO. She returns to the ER today with 2 episodes of bright red blood per rectum that occurred this morning. She has her persistent right lower quadrant abdominal pain which she only notes is not worse, however it's not responding to her usual home by mouth pain medicines. She was discharged home on a long taper of by mouth prednisone and reports she has been compliant with this. She did however cancel her GI outpatient follow-up visit scheduled for May 07 as she states she was unaware that it would be a free visit as part of the hospital 's free care program that was arranged for her upon discharge last time. She was afraid she would not be able to afford the visits. She denies fevers or chills, denies nausea or vomiting. She does have some heartburn. Her hemoglobin on labs was normal at 15. Her CT of the abdomen and pelvis in the ER was concerning for findings of: "persistent wall thickening and hyperemia of the distal ileum which suggests active Crohn's disease. Persistent , but improving, upstream small bowel dilatation suggestive of an improving small bowel obstruction. Mild interval increase in adjacent mesenteric hypodensity which favors an inflammatory process such as phlegmon/developing abscess. No drainable collection. 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 She will be admitted for observation for rectal bleeding and started on IV Cipro and Flagyl for the developing phlegmon in the mesentery. She will also require a gastroenterology consultation. Past Medical/Surgical History Past medical history: Crohn's disease with known fistulas Hyperglycemia Obesity Hypertension Multiple small bowel obstructions Vitamin D deficiency Current smoker Past surgical history: BTL Family History Noncontributory Social History Smoking Status: Current Every Day Smoker (down to one half pack per day, smoking for 40 years) Alcohol Use: none Drug Use: none Marital Status: Housing status: lives alone (but is currently staying with her sister) Occupational Status: unemployed Multi-Drug Resistant Organisms History of MDRO: No Allergies Coded Allergies: No Known Allergies (Unverified , 04/27/16) Home Medications Scheduled Aspirin (Aspirin Ec), 81 MG PO DAILY Cyanocobalamin (Vitamin B12), 1,000 MCG PO DAILY Ferrous Sulfate (Iron), 325 MG PO DAILY Methylcellulose (Laxative) (Citrucel), 500 MG PO TID Prednisone (Prednisone), 5 MG PO UD Scheduled PRN Lorazepam (Ativan), 0.5 MG PO HS PRN for Insomnia Review of Systems Constitutional: No chills, No fever Eyes: No problem reported ENT: No problem reported Respiratory: No shortness of breath Cardiovascular: No chest pain Abdomen: + GI bleeding, + pain, No constipation, No diarrhea, No nausea, No vomiting Musculoskeletal: No problem reported Genitourinary - Female: No problem reported Neurologic: No problem reported Psychiatric: No problem reported Endocrine: No problem reported Hematologic / Lymphatic: No problem reported Integumentary: No problem reported Allergic / Immunologic: No problem reported Physical Exam Vital Signs Date Time Temp Pulse Resp B/P Pulse Ox O2 Delivery O2 Flow Rate FiO2 05/09/16 21:44 36.3 78 18 155/86 97 Room Air 05/09/16 21:14 68 16 121/70 97 05/09/16 20:20 71 18 117/68 96 Room Air 05/09/16 18:30 76 05/09/16 18:26 76 20 132/77 96 Room Air 05/09/16 16:34 36.9 94 20 153/78 96 Room Air General Appearance: WD/WN, no apparent distress, + obese Head: normocephalic, atraumatic Eyes: normal inspection, PERRL, EOMI, sclerae normal ENT: hearing grossly normal, pharynx normal Neck: supple, no adenopathy, trachea midline Respiratory/Chest: lungs clear, normal breath sounds, no respiratory distress, no accessory muscle use Cardiovascular: regular rate, rhythm, no edema, no gallop, no murmur, normal peripheral pulses Abdomen/GI: normal bowel sounds, soft, no organomegaly (but is morbidly obese and difficult to examine), occult blood negative (as per ER physician), + tenderness (in right lower quadrant without guarding or rebound tenderness) Back: normal inspection Extremities/Musculoskelatal: normal inspection, no calf tenderness, no pedal edema Neurologic/Psych: alert, normal mood/affect, oriented x 3 Skin: normal color, warm/dry, no rash Diagnostics Laboratory Results Results Past 24 Hours Test 05/09/16 16:40 05/09/16 17:10 05/09/16 17:20 Range/Units Urine Color YELLOW Urine Appearance CLEAR CLEAR Urine pH 5.5 4.5-7.5 Urine Specific [place] 1.004 1.000-1.030 Urine Protein NEG NEG Urine Glucose (UA) NEG NEG Urine Ketones NEG NEG Urine Occult Blood NEG NEG Urine Nitrite NEG NEG Urine Bilirubin NEG NEG Urine Urobilinogen NEG NEG Urine Leukocyte Esterase NEG NEG White Blood Count 12.80 4.8-10.8 K/uL Red Blood Count 4.82 4.2-5.4 M/uL Hemoglobin 15.3 12.0-16.0 g/dL Hematocrit 44.0 37-47 % Mean Corpuscular Volume 91.3 80-100 fL Mean Corpuscular Hemoglobin 31.7 25-34 pg Mean Corpuscular Hemoglobin Concent 34.8 32-36 g/dl Platelet Count 248 130-400 K/uL Mean Platelet Volume 9.2 7.4-10.4 fL Neutrophils (%) (Auto) 91.3 % Lymphocytes (%) (Auto) 5.5 % Monocytes (%) (Auto) 2.0 % Eosinophils (%) (Auto) 0.0 % Basophils (%) (Auto) 0.1 % Neutrophils # (Auto) 11.68 1.4-6.5 K/uL Lymphocytes # (Auto) 0.71 1.2-3.4 K/uL Monocytes # (Auto) 0.26 0.11-0.59 K/uL Eosinophils # (Auto) 0.00 0-0.5 K/uL Basophils # (Auto) 0.01 0-0.2 K/uL RDW Standard Deviation 46.8 36.4-46.3 fL RDW Coefficient of Variation 14.0 11.5-14.5 % Immature Granulocyte % (Auto) 1.1 % Immature Granulocyte # (Auto) 0.14 0.00-0.02 K/uL Sodium Level 139 136-145 mmol/L Potassium Level 3.5-5.1 mmol/L Chloride Level 107 98-107 mmol/L Carbon Dioxide Level 24 21-32 mmol/L Anion Gap 8.0 18.0 16-25 mmol/L Blood Urea Nitrogen 13 7-18 mg/dl Creatinine 0.96 0.60-1.20 mg/dl Estimated GFR () 73.5 Estimated GFR (Non- 63.4 BUN/Creatinine Ratio 13.2 10-20 Random Glucose 127 70-99 mg/dl Calcium Level 8.9 8.5-10.1 mg/dl Total Bilirubin 0.4 0.2-1 mg/dl Direct Bilirubin 0-0.2 mg/dl Aspartate Amino Transf (AST/SGOT) 15-37 U/L Alanine Aminotransferase (ALT/SGPT) 30 12-78 U/L Alkaline Phosphatase 71 45-117 U/L Total Protein 6.4 6.4-8.2 gm/dl Albumin 2.7 3.4-5.0 gm/dl Lipase 194 73-393 U/L Bedside Hemoglobin 15.0 12.0-16.0 g/dl Bedside Hematocrit 44 37-47 % Bedside Sodium 139 135-144 mEq/L Bedside Potassium 4.2 3.3-5.0 mEq/L Bedside Chloride 102 101-112 mEq/L Bedside Total CO2 24 24-31 mEq/l Bedside Blood Urea Nitrogen 14 7-18 mg/dl Bedside Creatinine 0.7 0.6-1.3 mg/dl Bedside Glucose (other) 131 70-99 mg/dl Bedside Ionized Calcium (Oumar) 1.17 1.12-1.32 mmol/l Diagnostic Radiology CT of the abdomen and pelvis as per history of present illness Impression Assessment and Plan This patient is a 61 yo female with history of Crohn's disease, poorly treated due to lack of insurance, who was recently admitted and discharged 1 week ago with SBO. She returns to the ER today with 2 episodes of bright red blood per rectum that occurred this morning. She has her persistent right lower quadrant abdominal pain which she only notes is not worse, however it's not responding to her usual home by mouth pain medicines. She was discharged home on a long taper of by mouth prednisone and reports she has been compliant with this. She did however cancel her GI outpatient follow-up visit scheduled for May 07. She denies fevers or chills, denies nausea or vomiting. She does have some heartburn. Rectal bleeding, Crohn's disease, history of small bowel obstructions and fistulas, developing phlegmon in the mesentery on CT- Her hemoglobin on labs was normal at 15. Rectal bleeding could be from internal hemorrhoids versus Crohn's disease. She did have a colonoscopy in September [address] of the abdomen and pelvis in the ER was concerning for findings of: "persistent wall thickening and hyperemia of the distal ileum which suggests active Crohn's disease. Persistent, but improving, upstream small bowel dilatation suggestive of an improving small bowel obstruction. Mild interval increase in adjacent mesenteric hypodensity which favors an inflammatory process such as phlegmon/developing abscess. No drainable collection. 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 - will start on IV Cipro and Flagyl for the developing phlegmon in the mesentery -gastroenterology consultation appreciated -Pain control when necessary -Continue by mouth prednisone at current taper dose of 35 mg daily -Follow CBC, check lactate Hyperglycemia, obesity, on chronic steroids -Check hemoglobin A1c Hypertension-currently not on medication for this -Observe blood pressures and treat as necessary Vitamin D deficiency-vitamin D level checked and was very low at 16 previously -Start vitamin D 1000 units by mouth once daily DVT prophylaxis-SCDs only given rectal bleeding Disposition-full code Will need social service agency director again to assist her with financial difficulties in obtaining medical appointments and prescriptions Advanced Directives Existing Living Will: No Existing Power of Head Machinist: No VTE Prophylaxis VTE Risk Assessment Done? Y/N: Yes Risk Level: Low Additional Copies To Oc Sesay PA-C
[2016-05-10] MEDS: METRONIDAZOLE / NSS 500 MG in PREMIXED NSS 100 ML IV SCH ×3 (02:33→18:25)
[2016-05-10 07:33] LABS: BASO % 0.2 %; BASO ABS # 0.02 K/uL (0-0.2); COMPLETE YES; EOS % 0.7 %; HEMATOCRIT 41.5 % (37-47); IG% 1.5 %; LYMPH % 18.9 %; MEAN CELL VOLUME 91.2 fL (80-100); MEAN CORPUSCULAR HEMOGLOBIN 31.4 pg (25-34); MEAN CORPUSCULAR HGB CONC 34.5 g/dl (32-36); MEAN PLATELET VOLUME 9.2 fL (7.4-10.4); MONO % 8.7 %; PLATELET COUNT 213 K/uL (130-400); RED BLOOD COUNT 4.55 M/uL (4.2-5.4); WHITE BLOOD COUNT 9.54 K/uL (4.8-10.8)
[2016-05-10 08:04] VITALS: BP 110/71; PULSE 63; TEMP 36.4; O2SAT 96
[2016-05-10 08:08] LABS: BUN/CREATININE RATIO 13.5 (10-20); CALCIUM 8.5 mg/dl (8.5-10.1); CREATININE 0.78 mg/dl (0.60-1.20); MAGNESIUM 2.1 mg/dl (1.8-2.4); POTASSIUM 3.4 mmol/L (3.5-5.1)
[2016-05-10] MEDS: CIPROFLOXACIN / D5W 400 MG in PREMIXED IN D5W 200 ML IV SCH ×2 (08:13→20:16)
[2016-05-10] MEDS: METHYLCELLULOSE POWDER 454 GM JAR PO SCH ×3 (08:14→20:15)
[2016-05-10] MEDS: NICOTINE 14 MG/24 HR TDSY TD SCH (08:15)
[2016-05-10] MEDS: CHOLECALCIFEROL 1000 INTER.UNIT TAB PO SCH (08:15)
[2016-05-10] MEDS: CYANOCOBALAMIN 500 MCG TAB (VIT B-12) PO SCH (08:15)
[2016-05-10] MEDS: FERROUS SULFATE 325 MG TAB PO SCH (08:15)
[2016-05-10] MEDS: ASPIRIN 81 MG ECTAB PO SCH (08:15)
[2016-05-10] MEDS: PANTOprazole SOD 40 MG TAB PO SCH (08:16)
--- NOTE | 2016-05-10 09:03 | Progress Note ---
Subjective Date of Service: May 10, 2016. Subjective Pt evaluation today including: conversation w/ patient, physical exam, chart review, lab review, review of studies, conversation w/ gis consultant, review of inpatient medication list No bowel movement yet,Sitting up in chair, eating some clear liquid diet, no nausea vomiting abdominal pain, Generally feeling okay Problem List Medical Problems: (1) Diarrhea Status: Acute (2) Fistula of intestine, excluding rectum and anus Status: Acute (3) Rectal bleed Status: Acute (4) RLQ abdominal pain Status: Acute (5) Small bowel obstruction Status: Acute (6) Small bowel obstruction Status: Acute Review of Systems Constitutional: + fatigue, No chills, No fever, No problem reported, No sweats , No weakness, No weight loss Eyes: No diplopia, No discharge, No eye pain, No redness, No worsening of vision ENT: No dental problems, No hearing loss, No nasal symptoms, No sore throat, No tinnitus, No trouble swallowing, No unusual epistaxis Respiratory: No cough, No dyspnea at rest, No dyspnea on exertion, No hemoptysis, No shortness of breath, No sputum, No wheezing Cardiac: + edema (trace), No PND, No chest pain, No claudication, No orthopnea , No palpitations Abdomen: No constipation, No diarrhea, No nausea, No pain, No vomiting Musculoskeletal: No calf pain, No joint pain, No muscle pain, No swelling Female : No abnormal vaginal bleeding, No dysuria, No hematuria, No incontinence, No urinary frequency, No vaginal discharge Neurologic: No balance problems, No memory loss, No numbness/tingling, No paralysis, No vertigo, No weakness Psychiatric: No anhedonism, No anxiety, No depression symptoms, No insomnia, No substance abuse Heme: No abnormal bleeding/bruising, No clotting problems, No night sweats, No swollen lymph nodes Endo: No excessive thirst, No excessive urination, No fatigue Skin: No bleeding, No color change, No itch, No new/changing skin lesions, No rash Objective Vital Signs Date Time Temp Pulse Resp B/P Pulse Ox O2 Delivery O2 Flow Rate FiO2 05/10/16 08:04 36.4 63 18 110/71 96 Room Air 05/10/16 00:00 97 Room Air 05/09/16 21:44 36.3 78 18 155/86 97 Room Air 05/09/16 21:14 68 16 121/70 97 05/09/16 20:20 71 18 117/68 96 Room Air 05/09/16 18:30 76 05/09/16 18:26 76 20 132/77 96 Room Air 05/09/16 16:34 36.9 94 20 153/78 96 Room Air Physical Exam General Appearance: WD/WN, no apparent distress, + obese Eyes: normal inspection, PERRL, EOMI, sclerae normal ENT: normal ENT inspection, hearing grossly normal, pharynx normal Neck: supple, no adenopathy, thyroid normal, no JVD, no carotid bruits, trachea midline Respiratory/Chest: chest non-tender, normal breath sounds, no respiratory distress, no accessory muscle use, + decreased breath sounds Cardiovascular: regular rate, rhythm, no edema, no gallop, no JVD, no murmur Abdomen: normal bowel sounds, non tender, soft, no organomegaly, no pulsatile mass Extremities: normal range of motion, non-tender, normal inspection, no pedal edema, no calf tenderness, normal capillary refill, pelvis stable, + swelling ( trace edema) 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, no motor/sensory deficits, alert, normal mood/affect, oriented x 3 Skin: normal color, warm/dry, no rash Lymphatic: no adenopathy Laboratory Results Last 24 Hours Test 05/09/16 16:40 05/09/16 17:10 05/09/16 17:20 05/10/16 06:24 Urine Color YELLOW Urine Appearance CLEAR Urine pH 5.5 Urine Specific O'Brien 1.004 Urine Protein NEG Urine Glucose (UA) NEG Urine Ketones NEG Urine Occult Blood NEG Urine Nitrite NEG Urine Bilirubin NEG Urine Urobilinogen NEG Urine Leukocyte Esterase NEG White Blood Count 12.80 K/uL Red Blood Count 4.82 M/uL Hemoglobin 15.3 g/dL Hematocrit 44.0 % Mean Corpuscular Volume 91.3 fL Mean Corpuscular Hemoglobin 31.7 pg Mean Corpuscular Hemoglobin Concent 34.8 g/dl Platelet Count 248 K/uL Mean Platelet Volume 9.2 fL Neutrophils (%) (Auto) 91.3 % Lymphocytes (%) (Auto) 5.5 % Monocytes (%) (Auto) 2.0 % Eosinophils (%) (Auto) 0.0 % Basophils (%) (Auto) 0.1 % Neutrophils # (Auto) 11.68 K/uL Lymphocytes # (Auto) 0.71 K/uL Monocytes # (Auto) 0.26 K/uL Eosinophils # (Auto) 0.00 K/uL Basophils # (Auto) 0.01 K/uL RDW Standard Deviation 46.8 fL RDW Coefficient of Variation 14.0 % Immature Granulocyte % (Auto) 1.1 % Immature Granulocyte # (Auto) 0.14 K/uL Sodium Level 139 mmol/L Potassium Level mmol/L Chloride Level 107 mmol/L Carbon Dioxide Level 24 mmol/L Anion Gap 8.0 mmol/L 18.0 mmol/L Blood Urea Nitrogen 13 mg/dl Creatinine 0.96 mg/dl Estimated GFR () 73.5 Estimated GFR (Non- 63.4 BUN/Creatinine Ratio 13.2 Random Glucose 127 mg/dl Calcium Level 8.9 mg/dl Total Bilirubin 0.4 mg/dl Direct Bilirubin mg/dl Aspartate Amino Transf (AST/SGOT) U/L Alanine Aminotransferase (ALT/SGPT) 30 U/L Alkaline Phosphatase 71 U/L Total Protein 6.4 gm/dl Albumin 2.7 gm/dl Lipase 194 U/L Bedside Hemoglobin 15.0 g/dl Bedside Hematocrit 44 % Bedside Sodium 139 mEq/L Bedside Potassium 4.2 mEq/L Bedside Chloride 102 mEq/L Bedside Total CO2 24 mEq/l Bedside Blood Urea Nitrogen 14 mg/dl Bedside Creatinine 0.7 mg/dl Bedside Glucose (other) 131 mg/dl Bedside Ionized Calcium (Oumar) 1.17 mmol/l Test 05/10/16 06:49 White Blood Count 9.54 K/uL Red Blood Count 4.55 M/uL Hemoglobin 14.3 g/dL Hematocrit 41.5 % Mean Corpuscular Volume 91.2 fL Mean Corpuscular Hemoglobin 31.4 pg Mean Corpuscular Hemoglobin Concent 34.5 g/dl Platelet Count 213 K/uL Mean Platelet Volume 9.2 fL Neutrophils (%) (Auto) 70.0 % Lymphocytes (%) (Auto) 18.9 % Monocytes (%) (Auto) 8.7 % Eosinophils (%) (Auto) 0.7 % Basophils (%) (Auto) 0.2 % Neutrophils # (Auto) 6.68 K/uL Lymphocytes # (Auto) 1.80 K/uL Monocytes # (Auto) 0.83 K/uL Eosinophils # (Auto) 0.07 K/uL Basophils # (Auto) 0.02 K/uL RDW Standard Deviation 46.0 fL RDW Coefficient of Variation 14.0 % Immature Granulocyte % (Auto) 1.5 % Immature Granulocyte # (Auto) 0.14 K/uL Sodium Level 140 mmol/L Potassium Level 3.4 mmol/L Chloride Level 107 mmol/L Carbon Dioxide Level 26 mmol/L Anion Gap 7.0 mmol/L Blood Urea Nitrogen 11 mg/dl Creatinine 0.78 mg/dl Est Creatinine Clear Calc Drug Dose 97.2 ml/min Estimated GFR () 94.4 Estimated GFR (Non- 81.5 BUN/Creatinine Ratio 13.5 Random Glucose 81 mg/dl Lactic Acid Level 1.1 mmol/L Calcium Level 8.5 mg/dl Magnesium Level 2.1 mg/dl Total Bilirubin 0.5 mg/dl Direct Bilirubin 0.1 mg/dl Aspartate Amino Transf (AST/SGOT) 13 U/L Alanine Aminotransferase (ALT/SGPT) 26 U/L Alkaline Phosphatase 58 U/L Total Protein 5.6 gm/dl Albumin 2.5 gm/dl Assessment and Plan 61 yo female admitted because of Rectal bleeding, Crohn's disease on 05/09/2016 Per report , History of Crohn's disease poorly treated due to lack of insurance , who was recently admitted and discharged 1 week ago with SBO. She returns to the on the day of admission with 2 episodes of bright red blood per rectum . She has her persistent right lower quadrant abdominal pain She was discharged home on a long taper of by mouth prednisone and reports she has been compliant with this. She did however cancel her GI outpatient follow- up visit scheduled for May 07. Rectal bleeding, emergency room evaluation there was no obvious hemorrhoid, stable History of Crohn's is on a long taper of by mouth prednisone and reports she has been compliant with this. CT of abdomen in the emergency no which shows : Persistent wall thickening and hyperemia of the distal ileum which suggests active Crohn's disease. Persistent, but improving, upstream small bowel dilatation suggestive of an improving small bowel obstruction. Mild interval increase in adjacent mesenteric hypodensity which favors an inflammatory process such as phlegmon/developing abscess. No drainable collection. 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 cont IV Cipro and Flagyl for the developing phlegmon in the mesentery Renée for GI input Continue pain control IV fluid, supportive care Continue by mouth prednisone at current taper dose of 35 mg daily Follow CBC, check lactate Hyperglycemia, obesity, on chronic steroids Hypertension Vitamin D deficiency Stable continue current care, DVT prophylaxis-SCDs only given rectal bleeding, discussed with patient and answered all the questions Continued [facility] stay due to: multiple IV medications needed Discharge planning: home
--- NOTE | 2016-05-10 16:03 | GASTROINTESTINAL CONSULTATION ---
DATE OF CONSULTATION: 05/10/2016 REASON FOR EVALUATION: Active Crohn disease with a developing phlegmon. HISTORY OF PRESENT ILLNESS: The patient is a 61-year-old with longstanding Crohn disease involving the ileum followed as an outpatient by Dr. Desir. The patient has been admitted to the hospital recently multiple times, last time a week ago where she had a small-bowel obstruction from terminal ileal disease. There was a lot of inflammation and she was treated with steroids. She was discharged on a steroid taper. There has been on many discussions with her about taking maintenance medications which she has not been able to afford due to her income and lack of insurance. She presented back to the hospital with recurrent right-sided abdominal pain and CT scan shows stenosis of the ileum with a developing phlegmon and possible fistula. She has been started on IV Cipro and Flagyl as well as p.o. prednisone. She is also having some diarrhea and a little bit of rectal bleeding. PAST MEDICAL HISTORY: Remarkable for Crohn's with stricturing ileal disease. MEDICATIONS: Prednisone taper. FAMILY HISTORY: Noncontributory. SOCIAL HISTORY: The patient lives in [facility]. PHYSICAL EXAMINATION: GENERAL: The patient is overweight, in no acute distress. ABDOMEN: Soft. Bowel sounds are present. There is some tenderness in the right mid abdomen. No mass or rebound. IMPRESSION AND PLAN: The patient has what appears to be a stricturing ileal Crohn disease with a probable fistula and developing phlegmon. The patient has been managed on steroids for her disease due to no insurance and low income. I think the patient is probably candidate for a biologic but currently not the present time due to her infectious process. She will need to get her phlegmon resolved and inflammation reduced first and then consider a biologic. If this does not improve, she may require surgical intervention. For now, we will continue to treat her with IV antibiotics and follow her clinically. If she improves, then we can consider applying for biologic for her as I do not think long-term steroids are a good solution and she has fistulizing disease to be more aggressive and will need more aggressive therapy. Since she has been followed in the past by Dr. Desir extensively, she will probably need to continue to follow up with him, once she is discharged from the hospital.
[2016-05-10 16:24] VITALS: BP 117/82; PULSE 71; TEMP 36.7; O2SAT 95
--- NOTE | 2016-05-10 20:53 | GASTROINTESTINAL CONSULTATION ---
DATE OF CONSULTATION: 05/10/2016 CHIEF COMPLAINT: Hematochezia. HISTORY OF PRESENT ILLNESS: The patient is a 61-year-old female with a history of fistulizing Crohn disease who presented to the Emergency Department yesterday evening for evaluation of hematochezia. The patient had been admitted approximately 1-1.5 weeks ago for small bowel obstruction and notes that those symptoms have not returned. She describes having 2 episodes of bright red blood per rectum which was described as blood in the toilet water and around the stool. She notes that her stool is presently solid and she has no pain with bowel movements. The patient has a several-year history of Crohn disease and is presently being followed by Dr. Desir. In the past, she has had difficulty with compliance with medical recommendations due to insurance issues. The patient was recently found to have evidence of a fistula in her terminal ileum and was placed onto steroid as an outpatient prior to her discharge last time. PAST MEDICAL HISTORY: 1. Crohn disease. 2. Hyperglycemia. 3. Obesity. 4. Hypertension. 5. Vitamin D deficiency. 6. Smoking history. PAST SURGICAL HISTORY: Tubal ligation. FAMILY HISTORY: No history of colon cancer or stomach cancer. SOCIAL HISTORY: The patient is a smoker, 1/2 pack per day. Alcohol none. Denies drug use. ALLERGIES: No drug allergies. OUTPATIENT MEDICATIONS: 1. Aspirin 81 mg per day. 2. Vitamin B12. 3. Iron sulfate 325 mg daily. 4. Methylcellulose 3 times daily. 5. Prednisone (35 mg presently). REVIEW OF SYSTEMS: GENERAL: No chills, no fever. EYES: No double vision noted. HEENT: No difficulty swallowing noted. RESPIRATORY: No shortness of breath. CARDIOVASCULAR: No chest pain. ABDOMEN: No abdominal pain. No nausea, vomiting. MUSCULOSKELETAL: No joint pains today. NEUROLOGIC: No headaches, no double vision. PSYCHIATRIC: No depression. No suicidal ideation. ENDOCRINE: No dysuria. No polyuria. HEMATOLOGIC: No early bleeding or easy bleeding tendency noted. ALLERGIC: No allergies reported by the patient. PHYSICAL EXAMINATION: VITAL SIGNS: Temperature 36.4, pulse 63, respiratory rate 18, blood pressure is 110/71, pulse ox 96% on room air. HEENT: No scleral icterus noted. No JVD noted. LUNGS: Clear to auscultation bilaterally. CARDIAC: Regular rate and rhythm. ABDOMEN: Obese, soft, mild right-sided abdominal tenderness. EXTREMITIES: No edema. MUSCULOSKELETAL: No joint deformities noted. LABORATORY DATA: White blood cell count is 9.4, hemoglobin is 14.3, hematocrit is 41.5, platelet count is 213. Chemistry -- sodium is 140, potassium is 3.4, chloride is 107, bicarb is 26, BUN is 11, creatinine is 0.78, glucose 81. Calcium 8.5, magnesium is 2.1, total bilirubin 0.5, AST 13, ALT 26, alkaline phosphatase 58, and albumin is 2.5. IMAGING STUDIES: Dated 05/09/2016 - impression: Persistent wall thickening and hyperemia of the distal small intestine. Persistent but improving upstream small bowel dilation. 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 IMPRESSION: A 61-year-old female with a history of Crohn disease likely fistulizing, based on her presentation and imaging studies. She does present with hematochezia which is likely an anorectal etiology, based on the patient's description. I would suggest continued with her steroid, at the present dose of 35 mg as you are doing. I also agree with the addition of antibiotics of Cipro and Flagyl for the possible phlegmon in the right lower quadrant. For further evaluation, I would suggest an MRI of the abdomen and pelvis to further evaluate for evidence of fistulizing disease. Based on the patient's history, she may ultimately benefit from addition of a biologic such as remicade or Humira. I will defer this decision to her regular GI provider. RECOMMENDATIONS: 1. Continue prednisone 35 mg per day. 2. Continue ciprofloxacin and Flagyl. 3. MRI of the abdomen and pelvis. 4. Followup per Dr. Desir, to be done on Wednesday. Please call with any questions or concerns over the weekend. 5. In addition, I would add a C. diff PCR. MTDD
[2016-05-10 23:49] VITALS: BP 113/72; PULSE 57; TEMP 36.5; O2SAT 97
[2016-05-11] MEDS: METRONIDAZOLE / NSS 500 MG in PREMIXED NSS 100 ML IV SCH ×3 (02:41→17:59)
[2016-05-11 07:38] LABS: ESTIMATED AVERAGE GLUCOSE 123 mg/dl; HA1C FLAG Normal (Normal)
[2016-05-11 07:40] VITALS: BP 122/78; PULSE 56; TEMP 36.7; O2SAT 98
[2016-05-11] MEDS: CYANOCOBALAMIN 500 MCG TAB (VIT B-12) PO SCH (08:40)
[2016-05-11] MEDS: FERROUS SULFATE 325 MG TAB PO SCH (08:40)
[2016-05-11] MEDS: CIPROFLOXACIN / D5W 400 MG in PREMIXED IN D5W 200 ML IV SCH ×2 (08:40→19:38)
[2016-05-11] MEDS: ASPIRIN 81 MG ECTAB PO SCH (08:40)
[2016-05-11] MEDS: METHYLCELLULOSE POWDER 454 GM JAR PO SCH ×3 (08:40→20:00)
[2016-05-11] MEDS: CHOLECALCIFEROL 1000 INTER.UNIT TAB PO SCH (08:41)
[2016-05-11] MEDS: PANTOprazole SOD 40 MG TAB PO SCH (08:41)
[2016-05-11] MEDS: NICOTINE 14 MG/24 HR TDSY TD SCH (08:42)
--- NOTE | 2016-05-11 09:59 | Gastroenterology Progress Note ---
Progress Note Date of Service: May 11, 2016 Subjective Pt evaluation today including: conversation w/ patient, physical exam, lab review, review of studies, review of inpatient medication list Patient reports stable RLQ pain. Tolerating clear liquid diet. MR enterography has been ordered and is pending. Continues corticosteroid and antibiotic therapy. Patient is hoping her insurance has been approved as she states she does want to follow up with GI and does want to treat her disease. She states she had an appointment with me in the office last week but could not arrange transportation. Remains hemodynamically stable. No further rectal bleeding since admission. Review of Systems Constitutional: No problem reported Respiratory: No problem reported Cardiac: No problem reported Abdomen: + see HPI Medications Current Inpatient Medications Medications (Trade) Dose Ordered Sig/Rachael Route Start Time Stop Time Status Last Admin Dose Admin Ioversol (Optiray 320) 100 ml UD PRN IV 05/09/16 17:00 05/13/16 16:59 Acetaminophen (Tylenol Tab) 650 mg Q4H PRN PO 05/09/16 20:30 06/08/16 20:29 Ondansetron HCl (Zofran Inj) 4 mg Q6H PRN IV 05/09/16 20:30 06/08/16 20:29 Aspirin (Ecotrin Tab) 81 mg DAILY PO 05/10/16 08:00 06/09/16 08:59 05/11/16 08:40 81 MG Lorazepam (Ativan Tab) 0.5 mg HS PRN PO 05/09/16 20:30 06/08/16 20:29 05/09/16 23:50 0.5 MG Prednisone (PredniSONE TAB) 35 mg DAILY PO 05/10/16 08:00 06/09/16 08:59 05/11/16 08:41 35 MG Cyanocobalamin (Vitamin B-12 Tab) 1,000 mcg DAILY PO 05/10/16 08:00 06/09/16 08:59 05/11/16 08:40 1,000 MCG Ferrous Sulfate (Feosol Tab) 325 mg DAILY PO 05/10/16 08:00 06/09/16 08:59 05/11/16 08:40 325 MG Methylcellulose (Citrucel Powder) 19 gm TID PO 05/10/16 08:00 06/09/16 07:59 05/11/16 08:40 19 GM Pantoprazole Sodium 40 mg 40 mg QAM PO 05/10/16 08:00 06/09/16 08:59 05/11/16 08:41 40 MG Ciprofloxacin/ Dextrose 400 mg/ Prmx 200 ml @ 100 mls/hr Q12@0800,2000 IV 05/10/16 08:00 05/19/16 19:59 05/11/16 08:40 100 MLS/HR Metronidazole/Prmx (Flagyl / Nss/ Premixed Nss) 100 ml @ 100 mls/hr Q8@0200,1000,1800 IV 05/10/16 02:00 05/20/16 01:59 05/11/16 02:41 100 MLS/HR Nicotine (Nicoderm Cq 14MG Patch) 1 patch QAM TD 05/10/16 08:00 06/09/16 08:59 05/11/16 08:42 1 PATCH Miscellaneous (Remove Nicoderm Patch) 1 ea HS N/A 05/10/16 21:00 06/09/16 20:59 05/10/16 20:15 1 EA Hydromorphone HCl (Dilaudid Inj) 0.5 mg Q2H PRN IV 05/09/16 20:30 05/23/16 20:29 Cholecalciferol (Vitamin D Tab) 1,000 inter.unit QAM PO 05/10/16 08:00 06/09/16 07:59 05/11/16 08:41 1,000 INTER.UNIT Objective Vital Signs Date Time Temp Pulse Resp B/P Pulse Ox O2 Delivery O2 Flow Rate FiO2 05/11/16 07:40 36.7 56 16 122/78 98 Room Air 05/11/16 00:00 Room Air 05/10/16 23:49 36.5 57 18 113/72 97 Room Air 05/10/16 20:00 Room Air 05/10/16 16:24 36.7 71 18 117/82 95 05/10/16 15:21 Room Air Physical Exam General Appearance: WD/WN, no apparent distress Eyes: EOMI ENT: hearing grossly normal Neck: supple Respiratory/Chest: lungs clear, normal breath sounds, no respiratory distress Cardiovascular: regular rate, rhythm, no gallop, no murmur Abdomen: normal bowel sounds, non tender, soft Neurologic/Psych: alert, normal mood/affect, oriented x 3 Skin: warm/dry Assessment and Plan Patient is a 61 year-old female with a history of ileal Crohn's with small bowel obstruction admitted with BRBPR, worsening ileitis as well as possible fistula and phlegmon. 1. Await MR enterography as ordered. 2. Continue clear liquid diet for now. 3. Continue corticosteroid and antibiotic therapy. 4. Will need outpatient biologic therapy once acute infectious/inflammatory process has improved. 5. Additional recommendations pending results of imaging. Agree with VARSHA Pop as above Abd: Soft, NT, ND, +BS Continue supportive care MRI in the AM
[2016-05-11 16:00] VITALS: O2SAT 96
[2016-05-11 16:24] VITALS: BP 133/81; PULSE 64; TEMP 36.8; O2SAT 96
--- NOTE | 2016-05-11 16:44 | Progress Note ---
Subjective Date of Service: May 11, 2016. Subjective no new concerns overnight. Problem List Medical Problems: (1) Diarrhea Status: Acute (2) Fistula of intestine, excluding rectum and anus Status: Acute (3) Rectal bleed Status: Acute (4) RLQ abdominal pain Status: Acute (5) Small bowel obstruction Status: Acute (6) Small bowel obstruction Status: Acute Review of Systems Constitutional: No fever Respiratory: No shortness of breath Cardiac: No chest pain Abdomen: No pain Objective Vital Signs Date Time Temp Pulse Resp B/P Pulse Ox O2 Delivery O2 Flow Rate FiO2 05/11/16 16:24 36.8 64 18 133/81 96 Room Air 05/11/16 10:05 Room Air 05/11/16 07:40 36.7 56 16 122/78 98 Room Air 05/11/16 00:00 Room Air 05/10/16 23:49 36.5 57 18 113/72 97 Room Air 05/10/16 20:00 Room Air Physical Exam General Appearance: no apparent distress Respiratory/Chest: lungs clear, no respiratory distress Cardiovascular: regular rate, rhythm Abdomen: normal bowel sounds, non tender, soft Neurologic/Psychiatric: alert, oriented x 3 Assessment and Plan 61 yo female with h/o Crohn's disease poorly treated due to lack of insurance who was recently admitted and discharged 1 week ago with SBO presented with BRBPR x 2 episodes and persistent RLQ abdominal pain. On her last admit she was discharged home on a long taper of by mouth prednisone and reports she has been compliant with this. She did however cancel her GI outpatient follow-up visit scheduled for May 07. Rectal bleeding, emergency room evaluation there was no obvious hemorrhoid, stable History of Crohn's is on a long taper of by mouth prednisone and reports she has been compliant with this. CT of abdomen on adm showed : Persistent wall thickening and hyperemia of the distal ileum which suggests active Crohn's disease. Persistent, but improving, upstream small bowel dilatation suggestive of an improving small bowel obstruction. Mild interval increase in adjacent mesenteric hypodensity which favors an inflammatory process such as phlegmon/developing abscess. No drainable collection. 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 cont IV Cipro and Flagyl for the developing phlegmon in the mesentery GI consulted MR enterogram pending Continue pain control IV fluid, supportive care Continue by mouth prednisone at current taper dose of 35 mg daily Follow CBC, check lactate Hyperglycemia, obesity, on chronic steroids Hypertension Vitamin D deficiency DVT prophylaxis-SCDs since with rectal bleeding, Continued [facility] stay due to: multiple IV medications needed Discharge planning: home
[2016-05-11] MEDS: LORAZEPAM 0.5 MG TAB PO PRN (22:26)
[2016-05-11] MEDS: HYDROmorphone INJ 0.5 MG/0.5 ML SYR IV PRN (22:27)
[2016-05-12] VITALS: BP 107/71; PULSE 53; TEMP 37; O2SAT 96
[2016-05-12] MEDS: METRONIDAZOLE / NSS 500 MG in PREMIXED NSS 100 ML IV SCH ×3 (01:52→18:41)
[2016-05-12 07:15] VITALS: BP 133/83; PULSE 59; TEMP 36.7; O2SAT 95
[2016-05-12] MEDS: CIPROFLOXACIN / D5W 400 MG in PREMIXED IN D5W 200 ML IV SCH ×2 (07:54→20:07)
[2016-05-12] MEDS: CHOLECALCIFEROL 1000 INTER.UNIT TAB PO SCH (07:54)
[2016-05-12] MEDS: ASPIRIN 81 MG ECTAB PO SCH (07:56)
[2016-05-12] MEDS: FERROUS SULFATE 325 MG TAB PO SCH (07:56)
[2016-05-12] MEDS: PANTOprazole SOD 40 MG TAB PO SCH (07:56)
[2016-05-12] MEDS: CYANOCOBALAMIN 500 MCG TAB (VIT B-12) PO SCH (07:56)
[2016-05-12] MEDS: METHYLCELLULOSE POWDER 454 GM JAR PO SCH ×3 (08:00→20:00)
[2016-05-12] MEDS ORDERED: NURSING VERBAL MED ORDER ONE ×2 (11:45→15:15)
[2016-05-12] MEDS ORDERED: GLUCAGON FOR INJ 1 MG VIAL IM ONE (12:00)
[2016-05-12] MEDS ORDERED: GLUCAGON FOR INJ 1 MG VIAL ONE (12:30)
[2016-05-12] MEDS: NICOTINE 14 MG/24 HR TDSY TD SCH (13:59)
[2016-05-12] MEDS ORDERED: COUGH DROP (SUGAR FREE) LOZ 24 LOZ/1 BOX PO PRN (15:30)
[2016-05-12] MEDS ORDERED: SODIUM CHLORIDE 0.65% NA SOLN 45 ML (OCEAN) PRN (15:30)
[2016-05-12 15:31] VITALS: BP 114/71; PULSE 73; TEMP 36.6; O2SAT 97
--- NOTE | 2016-05-12 15:38 | Progress Note ---
Subjective Date of Service: May 12, 2016. Subjective No new concerns. continues to have pain in right flank. Problem List Medical Problems: (1) Diarrhea Status: Acute (2) Fistula of intestine, excluding rectum and anus Status: Acute (3) Rectal bleed Status: Acute (4) RLQ abdominal pain Status: Acute (5) Small bowel obstruction Status: Acute (6) Small bowel obstruction Status: Acute Review of Systems Constitutional: No fever Respiratory: No shortness of breath Cardiac: No chest pain Abdomen: No nausea Objective Vital Signs Date Time Temp Pulse Resp B/P Pulse Ox O2 Delivery O2 Flow Rate FiO2 05/12/16 08:06 Room Air 05/12/16 07:15 36.7 59 16 133/83 95 Room Air 05/12/16 01:35 Room Air 05/12/16 00:00 37.0 53 16 107/71 96 Room Air 05/11/16 16:24 36.8 64 18 133/81 96 Room Air 05/11/16 16:00 96 Room Air Physical Exam General Appearance: no apparent distress Respiratory/Chest: lungs clear, no respiratory distress Cardiovascular: regular rate, rhythm Abdomen: normal bowel sounds, non tender, soft Neurologic/Psychiatric: alert, oriented x 3 Skin: warm/dry Assessment and Plan 61 yo female with h/o Crohn's disease poorly treated due to lack of insurance who was recently admitted and discharged 1 week ago with SBO presented with BRBPR x 2 episodes and persistent RLQ abdominal pain. On her last admit she was discharged home on a long taper of by mouth prednisone and reports she has been compliant with this. She did however cancel her GI outpatient follow-up visit scheduled for May 07. Rectal bleeding, CT of abdomen on adm showed : Persistent wall thickening and hyperemia of the distal ileum which suggests active Crohn's disease. Persistent, but improving, upstream small bowel dilatation suggestive of an improving small bowel obstruction. Mild interval increase in adjacent mesenteric hypodensity which favors an inflammatory process such as phlegmon/developing abscess. No drainable collection. 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 cont IV Cipro and Flagyl for the developing phlegmon in the mesentery GI consulted MR enterogram pending Continue pain control IV fluid, supportive care Continue by mouth prednisone at current taper dose of 35 mg daily Follow CBC, check lactate Hyperglycemia, obesity, on chronic steroids Hypertension Vitamin D deficiency DVT prophylaxis-SCDs since with rectal bleeding, Continued [facility] stay due to: multiple IV medications needed Discharge planning: home
--- NOTE | 2016-05-12 15:42 | DIAGNOSTIC IMAGING REPORT ---
MR ENTEROGRAPHY OF THE ABDOMEN AND PELVIS CLINICAL HISTORY: Crohn's disease. COMPARISON STUDY: CT scan dated 05/09/2016 FINDINGS: The patient was scanned following administration 11.5 cc of intravenous Gadavist. In addition the patient received 1 no low-grade of intramuscular glucagon. Imaging was performed in the coronal and axial planes. No hepatic, splenic, pancreatic, adrenal, or renal masses are visualized. There is a thick-walled terminal ileum with bowel wall hyperenhancement and diminished peristalsis. The findings are indicative of active Crohn's. There are multiple additional cyst thickened bowel loops with hyperemia the mesentery consistent with active Crohn's. There is proximal dilatation of the small bowel consistent with an element of partial obstruction. There is a stricture involving a mid abdominal distal ileal loop. Adjacent to this stricture is a 37 mm mesenteric lesion, likely are presenting a phlegmon/microabscess. There is a suspected fistula to adjacent transverse colon. Tethering of multiple small bowel loops is also evident. IMPRESSION: 1. Distal small bowel wall thickening, wall hyperemia, mesenteric hyperemia, and diminished peristalsis. The findings are consistent with active Crohn's disease 2. Marked bowel wall thickening involving a distal ileal loop resulting in luminal narrowing and mild upstream small bowel distention 3. 37 mm mesenteric lesion, adjacent to the markedly thickened distal small bowel loop. 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 05/12/2016 3:41 PM Dictated Date/Time: 05/12/2016 3:22 PM
--- NOTE | 2016-05-12 15:52 | Gastroenterology Progress Note ---
Progress Note Date of Service: May 12, 2016 Subjective Pt evaluation today including: conversation w/ patient, physical exam, lab review, review of studies, review of inpatient medication list Patient seen this morning. She reports stable symptoms of RLQ pain. No nausea or vomiting but she did have returning symptoms of bloody stool this morning. MR Enterography performed and consistent with ileocolonic fistula as well as 37 mm collection consistent with phlegmon/microabscess despite IV antibiotic therapy. Collection measured [address] imaging from three days ago. Continues corticosteroid therapy. Review of Systems Constitutional: No chills, No fever Respiratory: No problem reported Cardiac: No problem reported Abdomen: + see HPI Endo: No problem reported Medications Current Inpatient Medications Medications (Trade) Dose Ordered Sig/Rachael Route Start Time Stop Time Status Last Admin Dose Admin Ioversol (Optiray 320) 100 ml UD PRN IV 05/09/16 17:00 05/13/16 16:59 Acetaminophen (Tylenol Tab) 650 mg Q4H PRN PO 05/09/16 20:30 06/08/16 20:29 Ondansetron HCl (Zofran Inj) 4 mg Q6H PRN IV 05/09/16 20:30 06/08/16 20:29 Aspirin (Ecotrin Tab) 81 mg DAILY PO 05/10/16 08:00 06/09/16 08:59 05/12/16 07:56 81 MG Lorazepam (Ativan Tab) 0.5 mg HS PRN PO 05/09/16 20:30 06/08/16 20:29 05/11/16 22:26 0.5 MG Prednisone (PredniSONE TAB) 35 mg DAILY PO 05/10/16 08:00 06/09/16 08:59 05/12/16 07:56 35 MG Cyanocobalamin (Vitamin B-12 Tab) 1,000 mcg DAILY PO 05/10/16 08:00 06/09/16 08:59 05/12/16 07:56 1,000 MCG Ferrous Sulfate (Feosol Tab) 325 mg DAILY PO 05/10/16 08:00 06/09/16 08:59 05/12/16 07:56 325 MG Methylcellulose (Citrucel Powder) 19 gm TID PO 05/10/16 08:00 06/09/16 07:59 05/11/16 20:00 19 GM Pantoprazole Sodium 40 mg 40 mg QAM PO 05/10/16 08:00 06/09/16 08:59 05/12/16 07:56 40 MG Ciprofloxacin/ Dextrose 400 mg/ Prmx 200 ml @ 100 mls/hr Q12@0800,2000 IV 05/10/16 08:00 05/19/16 19:59 05/12/16 07:54 100 MLS/HR Metronidazole/Prmx (Flagyl / Nss/ Premixed Nss) 100 ml @ 100 mls/hr Q8@0200,1000,1800 IV 05/10/16 02:00 05/20/16 01:59 05/12/16 13:59 100 MLS/HR Nicotine (Nicoderm Cq 14MG Patch) 1 patch QAM TD 05/10/16 08:00 06/09/16 08:59 05/12/16 13:59 1 PATCH Miscellaneous (Remove Nicoderm Patch) 1 ea HS N/A 05/10/16 21:00 06/09/16 20:59 05/11/16 22:26 1 EA Hydromorphone HCl (Dilaudid Inj) 0.5 mg Q2H PRN IV 05/09/16 20:30 05/23/16 20:29 05/11/16 22:27 0.5 MG Cholecalciferol (Vitamin D Tab) 1,000 inter.unit QAM PO 05/10/16 08:00 06/09/16 07:59 05/12/16 07:54 1,000 INTER.UNIT Sodium Chloride ([place] Nasal [place]) 1 sprays PRN PRN NA 05/12/16 15:30 06/11/16 15:29 Menthol (Nice Earl) 1 earl PRN PRN PO 05/12/16 15:30 06/11/16 15:29 Objective Vital Signs Date Time Temp Pulse Resp B/P Pulse Ox O2 Delivery O2 Flow Rate FiO2 05/12/16 15:31 36.6 73 16 114/71 97 Room Air 05/12/16 08:06 Room Air 05/12/16 07:15 36.7 59 16 133/83 95 Room Air 05/12/16 01:35 Room Air 05/12/16 00:00 37.0 53 16 107/71 96 Room Air 05/11/16 16:24 36.8 64 18 133/81 96 Room Air 05/11/16 16:00 96 Room Air Physical Exam General Appearance: WD/WN, no apparent distress Eyes: EOMI Respiratory/Chest: lungs clear, normal breath sounds, no respiratory distress Cardiovascular: regular rate, rhythm, no gallop, no murmur Abdomen: normal bowel sounds, soft, + tenderness (RLQ) Neurologic/Psych: alert, normal mood/affect, oriented x 3 Skin: warm/dry Assessment and Plan Patient is a 61 year-old female with a history of ileal Crohn's with small bowel obstruction admitted with BRBPR, worsening ileitis as well as fistula and phlegmon. 1. Consult for general surgery opinion due to finding of 37 mm phlegmon/ microabscess. 2. Continue clear liquid diet for now. 3. Continue corticosteroid and antibiotic therapy. 4. Will need outpatient biologic therapy once acute infectious/inflammatory process has improved. 5. Continue ongoing medical management. Agree with VARSHA Pop as above Abd: Soft, NT, ND, +BS Continue supportive care and current therapy MRI shows no improvement Consult surgery
[2016-05-12 16:00] VITALS: O2SAT 97
[2016-05-12] MEDS: HYDROmorphone INJ 0.5 MG/0.5 ML SYR IV PRN (22:14)
[2016-05-12] MEDS: LORAZEPAM 0.5 MG TAB PO PRN (22:14)
[2016-05-12 23:57] VITALS: BP 142/81; PULSE 63; TEMP 36.6; O2SAT 97
[2016-05-13] MEDS: METRONIDAZOLE / NSS 500 MG in PREMIXED NSS 100 ML IV SCH (01:48)
[2016-05-13] MEDS: METHYLCELLULOSE POWDER 454 GM JAR PO SCH (08:00)
[2016-05-13 08:01] VITALS: BP 141/83; PULSE 62; TEMP 36.7; O2SAT 96
[2016-05-13] MEDS: CIPROFLOXACIN / D5W 400 MG in PREMIXED IN D5W 200 ML IV SCH (08:01)
[2016-05-13] MEDS: ASPIRIN 81 MG ECTAB PO SCH (08:02)
[2016-05-13] MEDS: FERROUS SULFATE 325 MG TAB PO SCH (08:03)
[2016-05-13] MEDS: CHOLECALCIFEROL 1000 INTER.UNIT TAB PO SCH (08:04)
[2016-05-13] MEDS: CYANOCOBALAMIN 500 MCG TAB (VIT B-12) PO SCH (08:04)
[2016-05-13] MEDS: PANTOprazole SOD 40 MG TAB PO SCH (08:04)
[2016-05-13] MEDS: NICOTINE 14 MG/24 HR TDSY TD SCH (08:05)
--- NOTE | 2016-05-13 09:15 | Medical Consult ---
Consultation Date of Consultation: May 13, 2016. Attending Physician: Amber Griffin M.D. History of Present Illness 61 y/o female we've seen over the past few months for Crohn's related obstructions now readmitted for rectal bleeding and has CT findings of abdominal phlegmon that has been developing since her last CT a few weeks ago. She is tolerating a clear liquid diet. Has minimal RLQ discomfort. No fevers or chills. No nausea or vomiting. At home she was tolerating diet and was on prednisone taper. Past Medical/Surgical History Medical Problems: (1) Diarrhea Status: Acute (2) Fistula of intestine, excluding rectum and anus Status: Acute (3) Rectal bleed Status: Acute (4) RLQ abdominal pain Status: Acute (5) Small bowel obstruction Status: Acute (6) Small bowel obstruction Status: Acute Social History Smoking Status: Current Every Day Smoker (down to one half pack per day, smoking for 40 years) Alcohol Use: none Drug Use: none Marital Status: Housing Status: lives alone Occupation Status: unemployed Allergies Coded Allergies: No Known Allergies (Unverified , 04/27/16) Current Inpatient Medications Current Inpatient Medications Medications (Trade) Dose Ordered Sig/Rachael Route Start Time Stop Time Status Last Admin Dose Admin Ioversol (Optiray 320) 100 ml UD PRN IV 05/09/16 17:00 05/13/16 16:59 Acetaminophen (Tylenol Tab) 650 mg Q4H PRN PO 05/09/16 20:30 06/08/16 20:29 Ondansetron HCl (Zofran Inj) 4 mg Q6H PRN IV 05/09/16 20:30 06/08/16 20:29 Aspirin (Ecotrin Tab) 81 mg DAILY PO 05/10/16 08:00 06/09/16 08:59 05/13/16 08:02 81 MG Lorazepam (Ativan Tab) 0.5 mg HS PRN PO 05/09/16 20:30 06/08/16 20:29 05/12/16 22:14 0.5 MG Prednisone (PredniSONE TAB) 35 mg DAILY PO 05/10/16 08:00 06/09/16 08:59 05/13/16 08:03 35 MG Cyanocobalamin (Vitamin B-12 Tab) 1,000 mcg DAILY PO 05/10/16 08:00 06/09/16 08:59 05/13/16 08:04 1,000 MCG Ferrous Sulfate (Feosol Tab) 325 mg DAILY PO 05/10/16 08:00 06/09/16 08:59 05/13/16 08:03 325 MG Methylcellulose (Citrucel Powder) 19 gm TID PO 05/10/16 08:00 06/09/16 07:59 05/11/16 20:00 19 GM Pantoprazole Sodium 40 mg 40 mg QAM PO 05/10/16 08:00 06/09/16 08:59 05/13/16 08:04 40 MG Ciprofloxacin/ Dextrose 400 mg/ Prmx 200 ml @ 100 mls/hr Q12@0800,2000 IV 05/10/16 08:00 05/19/16 19:59 05/13/16 08:01 100 MLS/HR Metronidazole/Prmx (Flagyl / Nss/ Premixed Nss) 100 ml @ 100 mls/hr Q8@0200,1000,1800 IV 05/10/16 02:00 05/20/16 01:59 05/13/16 01:48 100 MLS/HR Nicotine (Nicoderm Cq 14MG Patch) 1 patch QAM TD 05/10/16 08:00 06/09/16 08:59 05/13/16 08:05 1 PATCH Miscellaneous (Remove Nicoderm Patch) 1 ea HS N/A 05/10/16 21:00 06/09/16 20:59 05/12/16 22:13 1 EA Hydromorphone HCl (Dilaudid Inj) 0.5 mg Q2H PRN IV 05/09/16 20:30 05/23/16 20:29 05/12/16 22:14 0.5 MG Cholecalciferol (Vitamin D Tab) 1,000 inter.unit QAM PO 05/10/16 08:00 06/09/16 07:59 05/13/16 08:04 1,000 INTER.UNIT Sodium Chloride ([place] Nasal [place]) 1 sprays PRN PRN NA 05/12/16 15:30 06/11/16 15:29 Menthol (Nice Earl) 1 earl PRN PRN PO 05/12/16 15:30 06/11/16 15:29 Review of Systems Constitutional: No chills, No fever Abdomen: + GI bleeding (blood with BM), + pain (mild), No nausea, No vomiting Physical Exam Date Time Temp Pulse Resp B/P Pulse Ox O2 Delivery O2 Flow Rate FiO2 05/13/16 08:01 36.7 62 16 141/83 96 Room Air 05/13/16 00:00 Room Air 05/12/16 23:57 36.6 63 18 142/81 97 Room Air 05/12/16 16:00 97 Room Air 05/12/16 15:31 36.6 73 16 114/71 97 Room Air General Appearance: no apparent distress Abdomen/GI: soft, + tenderness (minimal, no peritoneal findings) Laboratory Results CT OF THE ABDOMEN AND PELVIS WITH CONTRAST CLINICAL HISTORY: Right lower quadrant abdominal pain. Rectal bleed. Crohn's disease. COMPARISON STUDY: CT of the abdomen and pelvis May 01, 2016. TECHNIQUE: Following IV administration of 115 mL of Optiray-320, axial images of the abdomen and pelvis were obtained from the lung bases to the proximal femurs. Images were reviewed in the axial, sagittal, and coronal planes. IV contrast was administered without complication. CT DOSE: 1600.11 mGy.cm FINDINGS: The lung bases are clear. The liver, spleen, adrenal glands, kidneys and pancreas are unremarkable. There is no hydronephrosis. There is no peripancreatic or pericholecystic infiltration. Mild small bowel dilatation has improved since exam of May 01, 2016. Persistent wall thickening and hyperemia of the distal ileum is again noted. This represents the transition point. The upstream dilatation has improved since prior studies. An adjacent 3.5 x 2.3 cm mesenteric hypodensity has increased since prior exam. Tethering of small bowel loops is noted. Mesenteric infiltration is noted. There is a possible ileocolonic fistula which extends to the transverse colon. Mild wall thickening of the terminal ileum is unchanged. No additional fluid collections are present. IMPRESSION: Persistent wall thickening and hyperemia of the distal ileum which suggests active Crohn's disease. Persistent, but improving, upstream small bowel dilatation suggestive of an improving small bowel obstruction. Mild interval increase in adjacent mesenteric hypodensity which favors an inflammatory process such as phlegmon/developing abscess. No drainable collection. 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 Electronically signed by: Teddy Burger M.D. 05/09/2016 6:04 PM Dictated Date/Time: 05/09/2016 5:49 PM Assessment & Plan Crohn's disease, phlegmon Most recent labs show normal WBC. Exam is benign. Continue IV abx and nonsurgical management. Seems to be managed with Cipro/Flagyl but could ask ID for their thoughts on extended coverage.
--- NOTE | 2016-05-13 09:47 | Gastroenterology Progress Note ---
Progress Note Date of Service: May 13, 2016 Subjective Pt evaluation today including: conversation w/ patient, physical exam, chart review, lab review, review of studies, review of inpatient medication list Patient seen in conjunction with Dr. Desir. Patient with persistent RLQ pain. No improvement of phlegmon/abscess on IV abx therapy. No plans for surgical management per surgical consult note. Review of Systems Constitutional: No chills, No fever Respiratory: No problem reported Cardiac: No problem reported Abdomen: + see HPI Skin: No problem reported Medications Current Inpatient Medications Medications (Trade) Dose Ordered Sig/Rachael Route Start Time Stop Time Status Last Admin Dose Admin Ioversol (Optiray 320) 100 ml UD PRN IV 05/09/16 17:00 05/13/16 16:59 Acetaminophen (Tylenol Tab) 650 mg Q4H PRN PO 05/09/16 20:30 06/08/16 20:29 Ondansetron HCl (Zofran Inj) 4 mg Q6H PRN IV 05/09/16 20:30 06/08/16 20:29 Aspirin (Ecotrin Tab) 81 mg DAILY PO 05/10/16 08:00 06/09/16 08:59 05/13/16 08:02 81 MG Lorazepam (Ativan Tab) 0.5 mg HS PRN PO 05/09/16 20:30 06/08/16 20:29 05/12/16 22:14 0.5 MG Prednisone (PredniSONE TAB) 35 mg DAILY PO 05/10/16 08:00 06/09/16 08:59 05/13/16 08:03 35 MG Cyanocobalamin (Vitamin B-12 Tab) 1,000 mcg DAILY PO 05/10/16 08:00 06/09/16 08:59 05/13/16 08:04 1,000 MCG Ferrous Sulfate (Feosol Tab) 325 mg DAILY PO 05/10/16 08:00 06/09/16 08:59 05/13/16 08:03 325 MG Methylcellulose (Citrucel Powder) 19 gm TID PO 05/10/16 08:00 06/09/16 07:59 05/11/16 20:00 19 GM Pantoprazole Sodium 40 mg 40 mg QAM PO 05/10/16 08:00 06/09/16 08:59 05/13/16 08:04 40 MG Ciprofloxacin/ Dextrose 400 mg/ Prmx 200 ml @ 100 mls/hr Q12@0800,2000 IV 05/10/16 08:00 05/19/16 19:59 05/13/16 08:01 100 MLS/HR Metronidazole/Prmx (Flagyl / Nss/ Premixed Nss) 100 ml @ 100 mls/hr Q8@0200,1000,1800 IV 05/10/16 02:00 05/20/16 01:59 05/13/16 01:48 100 MLS/HR Nicotine (Nicoderm Cq 14MG Patch) 1 patch QAM TD 05/10/16 08:00 06/09/16 08:59 05/13/16 08:05 1 PATCH Miscellaneous (Remove Nicoderm Patch) 1 ea HS N/A 05/10/16 21:00 06/09/16 20:59 05/12/16 22:13 1 EA Hydromorphone HCl (Dilaudid Inj) 0.5 mg Q2H PRN IV 05/09/16 20:30 05/23/16 20:29 05/12/16 22:14 0.5 MG Cholecalciferol (Vitamin D Tab) 1,000 inter.unit QAM PO 05/10/16 08:00 06/09/16 07:59 05/13/16 08:04 1,000 INTER.UNIT Sodium Chloride ([place] Nasal [place]) 1 sprays PRN PRN NA 05/12/16 15:30 06/11/16 15:29 Menthol (Nice Earl) 1 earl PRN PRN PO 05/12/16 15:30 06/11/16 15:29 Objective Vital Signs Date Time Temp Pulse Resp B/P Pulse Ox O2 Delivery O2 Flow Rate FiO2 05/13/16 08:01 36.7 62 16 141/83 96 Room Air 05/13/16 00:00 Room Air 05/12/16 23:57 36.6 63 18 142/81 97 Room Air 05/12/16 16:00 97 Room Air 05/12/16 15:31 36.6 73 16 114/71 97 Room Air Physical Exam General Appearance: WD/WN, no apparent distress Eyes: EOMI Respiratory/Chest: lungs clear, normal breath sounds, no respiratory distress Cardiovascular: regular rate, rhythm, no gallop, no murmur Abdomen: normal bowel sounds, soft, + tenderness (RLQ) Neurologic/Psych: alert, normal mood/affect, oriented x 3 Skin: warm/dry Assessment and Plan Patient is a 61 year-old female with a history of ileal Crohn's with small bowel obstruction admitted with BRBPR, worsening ileitis as well as fistula and phlegmon. 1. Discussed transfer to [facility] [place] for consideration of IR drainage 37 mm phlegmon/ microabscess with primary team. The persistent abscess/phlegmon precludes eligibility for initiation of biologic therapy. 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 2. Would recommend colorectal surgery evaluation as well as surgical intervention may be necessary in this case prior to initiation of long-term maintenance therapy with biologics. 3. Continue corticosteroid and antibiotic therapy. 4. Case discussed with Dr. Griffin. Agree with VARSHA Pop as above Abd: Soft, Tender RLQ, ND, +BS Continue current therapy Discussed Case with Dr. Griffin, and advised patient be transferred to tertiary care center, for possible IR drainage of abscess and Colorectal surgery consult.
--- NOTE | 2016-05-13 10:24 | Discharge Summary ---
Discharge Summary Date of Service May 13, 2016. Discharge Summary Admission Date: May 09, 2016 at 20:22 Discharge Date: May 13, 2016 Discharge Disposition: Acute care facility Principal Diagnosis: Intraabdominal phlegmon/microabscess Problems/Secondary Diagnoses: Crohn's disease Consultations: GI- [facility] - Case Surgery- [facility]. Discharge Exam Last Resulted CBC 05/10/16 06:49 Red Blood Count 4.55, Mean Corpuscular Volume 91.2, Mean Corpuscular Hemoglobin 31.4, Mean Corpuscular Hemoglobin Concent 34.5, Mean Platelet Volume 9.2, Neutrophils (%) (Auto) 70.0, Lymphocytes (%) (Auto) 18.9, Monocytes (%) (Auto) 8.7, Eosinophils (%) (Auto) 0.7, Basophils (%) (Auto) 0.2, Neutrophils # (Auto) 6.68, Lymphocytes # (Auto) 1.80, Monocytes # (Auto) 0.83, Eosinophils # (Auto) 0.07, Basophils # (Auto) 0.02 Last Resulted BMP 05/10/16 06:49 Current Inpatient Medications Medications (Trade) Dose Ordered Sig/Rachael Route Start Time Stop Time Status Last Admin Dose Admin Ioversol (Optiray 320) 100 ml UD PRN IV 05/09/16 17:00 05/13/16 16:59 Acetaminophen (Tylenol Tab) 650 mg Q4H PRN PO 05/09/16 20:30 06/08/16 20:29 Ondansetron HCl (Zofran Inj) 4 mg Q6H PRN IV 05/09/16 20:30 06/08/16 20:29 Aspirin (Ecotrin Tab) 81 mg DAILY PO 05/10/16 08:00 06/09/16 08:59 05/13/16 08:02 81 MG Lorazepam (Ativan Tab) 0.5 mg HS PRN PO 05/09/16 20:30 06/08/16 20:29 05/12/16 22:14 0.5 MG Prednisone (PredniSONE TAB) 35 mg DAILY PO 05/10/16 08:00 06/09/16 08:59 05/13/16 08:03 35 MG Cyanocobalamin (Vitamin B-12 Tab) 1,000 mcg DAILY PO 05/10/16 08:00 06/09/16 08:59 05/13/16 08:04 1,000 MCG Ferrous Sulfate (Feosol Tab) 325 mg DAILY PO 05/10/16 08:00 06/09/16 08:59 05/13/16 08:03 325 MG Methylcellulose (Citrucel Powder) 19 gm TID PO 05/10/16 08:00 06/09/16 07:59 05/11/16 20:00 19 GM Pantoprazole Sodium 40 mg 40 mg QAM PO 05/10/16 08:00 06/09/16 08:59 05/13/16 08:04 40 MG Ciprofloxacin/ Dextrose 400 mg/ Prmx 200 ml @ 100 mls/hr Q12@0800,2000 IV 05/10/16 08:00 05/19/16 19:59 05/13/16 08:01 100 MLS/HR Metronidazole/Prmx (Flagyl / Nss/ Premixed Nss) 100 ml @ 100 mls/hr Q8@0200,1000,1800 IV 05/10/16 02:00 05/20/16 01:59 05/13/16 01:48 100 MLS/HR Nicotine (Nicoderm Cq 14MG Patch) 1 patch QAM TD 05/10/16 08:00 06/09/16 08:59 05/13/16 08:05 1 PATCH Miscellaneous (Remove Nicoderm Patch) 1 ea HS N/A 05/10/16 21:00 06/09/16 20:59 05/12/16 22:13 1 EA Hydromorphone HCl (Dilaudid Inj) 0.5 mg Q2H PRN IV 05/09/16 20:30 05/23/16 20:29 05/12/16 22:14 0.5 MG Cholecalciferol (Vitamin D Tab) 1,000 inter.unit QAM PO 05/10/16 08:00 06/09/16 07:59 05/13/16 08:04 1,000 INTER.UNIT Sodium Chloride ([place]fir Nasal [place]) 1 sprays PRN PRN NA 05/12/16 15:30 06/11/16 15:29 Menthol (Nice Earl) 1 earl PRN PRN PO 05/12/16 15:30 06/11/16 15:29 Reported Home Medications Medications Dose Route/Sig Max Daily Dose Days Date Category Dose Instructions Prednisone 5 Mg Tab 5 Mg PO UD 05/03/16 Rx 8 tablets per day x one week, decrease by 1 tablet every week until complete Ativan (Lorazepam) 0.5 Mg Tab 0.5 Mg PO HS PRN 05/03/16 Rx Citrucel (Methylcellulose (Laxative)) 500 Mg Tab 500 Mg PO TID 09/06/15 Reported Vitamin B12 (Cyanocobalamin) 1,000 Mcg Tab 1,000 Mcg PO DAILY 09/06/15 Reported Iron (Ferrous Sulfate) 325 Mg Tab 325 Mg PO DAILY 09/06/15 Reported Aspirin Ec (Aspirin) 81 Mg Tab 81 Mg PO DAILY 09/06/15 [address] ENTEROGRAPHY OF THE ABDOMEN AND PELVIS CLINICAL HISTORY: Crohn's disease. COMPARISON STUDY: CT scan dated 05/09/2016 FINDINGS: The patient was scanned following administration 11.5 cc of intravenous Gadavist. In addition the patient received 1 no low-grade of intramuscular glucagon. Imaging was performed in the coronal and axial planes. No hepatic, splenic, pancreatic, adrenal, or renal masses are visualized. There is a thick-walled terminal ileum with bowel wall hyperenhancement and diminished peristalsis. The findings are indicative of active Crohn's. There are multiple additional cyst thickened bowel loops with hyperemia the mesentery consistent with active Crohn's. There is proximal dilatation of the small bowel consistent with an element of partial obstruction. There is a stricture involving a mid abdominal distal ileal loop. Adjacent to this stricture is a 37 mm mesenteric lesion, likely are presenting a phlegmon/microabscess. There is a suspected fistula to adjacent transverse colon. Tethering of multiple small bowel loops is also evident. IMPRESSION: 1. Distal small bowel wall thickening, wall hyperemia, mesenteric hyperemia, and diminished peristalsis. The findings are consistent with active Crohn's disease 2. Marked bowel wall thickening involving a distal ileal loop resulting in luminal narrowing and mild upstream small bowel distention 3. 37 mm mesenteric lesion, adjacent to the markedly thickened distal small bowel loop. 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 05/12/2016 3:41 PM Dictated Date/Time: 05/12/2016 3:[address] OF THE ABDOMEN AND PELVIS WITH CONTRAST CLINICAL HISTORY: Right lower quadrant abdominal pain. Rectal bleed. Crohn's disease. COMPARISON STUDY: CT of the abdomen and pelvis May 01, 2016. TECHNIQUE: Following IV administration of 115 mL of Optiray-320, axial images of the abdomen and pelvis were obtained from the lung bases to the proximal femurs. Images were reviewed in the axial, sagittal, and coronal planes. IV contrast was administered without complication. CT DOSE: 1600.11 mGy.cm FINDINGS: The lung bases are clear. The liver, spleen, adrenal glands, kidneys and pancreas are unremarkable. There is no hydronephrosis. There is no peripancreatic or pericholecystic infiltration. Mild small bowel dilatation has improved since exam of May 01, 2016. Persistent wall thickening and hyperemia of the distal ileum is again noted. This represents the transition point. The upstream dilatation has improved since prior studies. An adjacent 3.5 x 2.3 cm mesenteric hypodensity has increased since prior exam. Tethering of small bowel loops is noted. Mesenteric infiltration is noted. There is a possible ileocolonic fistula which extends to the transverse colon. Mild wall thickening of the terminal ileum is unchanged. No additional fluid collections are present. IMPRESSION: Persistent wall thickening and hyperemia of the distal ileum which suggests active Crohn's disease. Persistent, but improving, upstream small bowel dilatation suggestive of an improving small bowel obstruction. Mild interval increase in adjacent mesenteric hypodensity which favors an inflammatory process such as phlegmon/developing abscess. No drainable collection. 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 Electronically signed by: Teddy Burger M.D. 05/09/2016 6:04 PM Dictated Date/Time: 05/09/2016 5:49 PM Review of Systems: Constitutional: No fever Respiratory: No shortness of breath Cardiovascular: No chest pain Abdomen: + pain (right flank - soreness unchanged), No nausea Physical Exam: General Appearance: no apparent distress Respiratory/Chest: lungs clear, no respiratory distress Cardiovascular: regular rate, rhythm Abdomen / GI: normal bowel sounds, non tender, soft Neurologic/Psychiatric: alert, oriented x 3 Hospital Course 61 yo female with h/o Recurrent admission for Crohn's disease which is poorly treated due to lack of insurance who was recently admitted and discharged 1 week ago with SBO presented with BRBPR x 2 episodes and persistent RLQ abdominal pain. On her last admit she was discharged home on a long taper of by mouth prednisone and reports she has been compliant with this. She did however cancel her GI outpatient follow-up visit scheduled for May 07. Rectal bleeding in setting of Crohn's ds with phlegmon and fistula Started on IV Cipro and Flagyl on admission for the developing phlegmon in the mesentery Continued prednisone at current taper dose of 35 mg daily GI consulted - Recommended getting MR enterogram Underwent MR enterogram showing 37mm phlegmon and a fistula Surgery consulted - Recommended conservative management Spoke to GI - wanted her to be transferred [facility] for phlegmon removal/drainage due to her recurrent admission/non compliance and need to have the infection cleared before biological agent could be considered. Called [facility] [place] - spoke to Dr. Vernon and Dr. Watson and patient accepted on [facility] service. Total Time Spent: Greater than 30 minutes (40 min) This includes examination of the patient, discharge planning, medication reconciliation, and communication with other providers. Discharge Instructions Please refer to the electronic Patient Visit Report (Discharge Instructions) for additional information. Additional Copies To Oc Sesay PA-C
[2016-05-13 12:44] VITALS: BP 137/83; PULSE 82; TEMP 36.5; O2SAT 96
[2016-06-12] MEDS ORDERED: CMD5 PO (10:25)
[2016-06-12] MEDS ORDERED: LVNIS120 SQ (10:25)
[2016-06-24] MEDS ORDERED: CMD/25 PO (12:35)
[2016-08-18] MEDS ORDERED: CMD75 PO (11:43)
[2016-08-18] MEDS ORDERED: LVNIS120 SQ (11:43)
[2016-08-18] MEDS ORDERED: MRLP17X PO (11:52)
[2016-08-18] MEDS ORDERED: PRD10 PO (11:52)
[2016-09-29] MEDS ORDERED: PRD5 PO (09:14)
[2016-11-17] MEDS ORDERED: NICO14DI5 TD (12:37)
[2016-11-17] MEDS ORDERED: ZYR10 PO (12:37)
== END 2016-05-13 14:06 | disposition short-term general hospital (02) | DRG 386 ==
LOC: ENRESERVTM → ENRESERVDT → C.EDB 16:30 → C.MS4W 20:22
PROVIDERS: ADMIT Family Medicine; ATTEND Family Medicine
DX: K50.014 Crohn's disease of small intestine with abscess (principal); K50.013 Crohn's disease of small intestine with fistula; E66.9 Obesity, unspecified; I10 Essential (primary) hypertension; F17.210 Nicotine dependence, cigarettes, uncomplicated; Z79.52 Long term (current) use of systemic steroids; E55.9 Vitamin D deficiency, unspecified; R73.9 Hyperglycemia, unspecified

== ENCOUNTER 2016-06-07 11:33 | Inpatient (IN) | payer OTHER ==
[~2016-06-07] VITALS: Ht 167.6 cm; Wt 118.9 kg
[~2016-06-07 11:33] MED LIST changes: -LORA-741 PO
[2016-06-07] MEDS ORDERED: DIGE1CAP10 PO (11:55)
[2016-06-07] MEDS ORDERED: OMEP20TA74 PO (11:55)
[2016-06-07] MEDS ORDERED: NYSS/ PO (11:55)
[2016-06-07] MEDS ORDERED: CPR500 PO (11:55)
[2016-06-07] MEDS ORDERED: TRAZ50TA35 PO (11:55)
[2016-06-07] MEDS ORDERED: FLUC150T PO (11:55)
[2016-06-07] MEDS ORDERED: METR-163 PO (11:55)
[2016-06-07] MEDS ORDERED: PROB1CHW9 PO (11:57)
[2016-06-07] MEDS ORDERED: MoRPHine SULFATE 4 MG/ML 1 ML CARP\\VIAL IV STA ×2 (12:08→13:33)
[2016-06-07] MEDS ORDERED: ONDANSETRON INJ 2 MG/ML 2 ML VIAL IV STA (12:08)
[2016-06-07 12:46] LABS: BASO % 0.3 %; BASO ABS # 0.03 K/uL (0-0.2); COMPLETE YES; HEMATOCRIT 43.7 % (37-47); LYMPH % 20.5 %; LYMPH ABS # 1.84 K/uL (1.2-3.4); MEAN CELL VOLUME 92.6 fL (80-100); MEAN CORPUSCULAR HEMOGLOBIN 32.4 pg (25-34); MEAN PLATELET VOLUME 9.4 fL (7.4-10.4); NEUT % 65.2 %; PLATELET COUNT 208 K/uL (130-400); RED BLOOD COUNT 4.72 M/uL (4.2-5.4); WHITE BLOOD COUNT 8.96 K/uL (4.8-10.8)
[2016-06-07 12:46] LABS: URINE APPEARANCE CLEAR (CLEAR); URINE BILIRUBIN NEG (NEG); URINE COLOR YELLOW; URINE NITRITE NEG (NEG); URINE PH 6.5 (4.5-7.5); URINE SPECIFIC GRAVITY 1.004 (1.000-1.030); UROBILINOGEN NEG (NEG)
[2016-06-07 12:49] LABS: MANUAL MICROSCOPIC REQUIRED? NO; REVIEW REQ? NO
[2016-06-07 13:00] LABS: ALT/SGPT 24 U/L (12-78); AST/SGOT 13 U/L (15-37); BLOOD UREA NITROGEN 11 mg/dl (7-18); CALCIUM 9.2 mg/dl (8.5-10.1); CARBON DIOXIDE 28 mmol/L (21-32); CHLORIDE 105 mmol/L (98-107); CREATININE 0.81 mg/dl (0.60-1.20); GLUCOSE 84 mg/dl (70-99); POTASSIUM 3.8 mmol/L (3.5-5.1); SODIUM 144 mmol/L (136-145)
[2016-06-07 13:03] LABS: ALKALINE PHOSPHATASE 57 U/L (45-117)
--- NOTE | 2016-06-07 13:12 | DIAGNOSTIC IMAGING REPORT ---
CHEST 2 VIEWS ROUTINE CLINICAL HISTORY: Chest pain. Right upper flank pain. COMPARISON STUDY: Chest radiograph April 27, 2016. FINDINGS: Lung volumes are normal. There is no pneumothorax or pleural effusion. Cardiac size is normal. Mediastinal contours are normal. There is no evidence of pulmonary edema. IMPRESSION: No acute cardiopulmonary findings. Electronically signed by: Teddy Burger M.D. 06/07/2016 1:11 PM Dictated Date/Time: 06/07/2016 1:10 PM
[2016-06-07] MEDS ORDERED: OPTIRAY 320 IV PRN (13:15)
[2016-06-07] MEDS ORDERED: HYDROmorphone INJ 1 MG/ML SYR IV STA (14:34)
--- NOTE | 2016-06-07 15:38 | DIAGNOSTIC IMAGING REPORT ---
CT OF THE ABDOMEN AND PELVIS WITH CONTRAST CLINICAL HISTORY: Right flank pain. Bloody stool. Crohn's disease. COMPARISON STUDY: CT of the abdomen and pelvis May 09, 2016 and MR enterography May 12, 2016. TECHNIQUE: Following IV administration of 119 mL of Optiray-320, axial images of the abdomen and pelvis were obtained from the lung bases to the proximal femurs. Images were reviewed in the axial, sagittal, and coronal planes. IV contrast was administered without complication. Oral contrast was administered. CT DOSE: 1722.01 mGy.cm FINDINGS: Visualized portions of the lower chest demonstrate extensive bilateral pulmonary emboli. There is thrombus within the proximal inferior vena cava as well as the left common iliac vein. There is decreased distance between the right common iliac artery and left common iliac vein. No pneumatosis, free air or portal venous gas is present. The liver, spleen, adrenal glands, kidneys and pancreas are unremarkable. There is wall thickening of the distal ileum which is improved since exam of May 09, 2016. There is mild upstream small bowel dilatation. Contrast does not pass beyond this site. Adjacent infiltration within the mesentery with small fluid collections has also improved since prior exam. 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 The appendix is normal. There is sigmoid diverticulosis without evidence for acute diverticulitis. IMPRESSION: 1. Numerous segmental pulmonary emboli within visualized portions of the lower chest. In addition, thrombus within the proximal IVC and left common iliac vein. Decreased distance between the right common iliac artery and left common iliac vein. 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 Discussed with Dr. Gonzales at time of dictation. 2. Persistent, but improved, wall thickening and hyperemia of the distal ileum since CT of May 09, 2016. Persistent mild upstream small bowel dilatation with holdup of oral contrast at this site suggests a persistent partial small bowel obstruction. This could reflect a developing stricture. Improvement in associated mesenteric infiltration and tiny mesenteric fluid collections since prior exam. Electronically signed by: Teddy Burger M.D. 06/07/2016 3:37 PM Dictated Date/Time: 06/07/2016 3:20 PM
[2016-06-07] MEDS ORDERED: HYDROmorphone INJ 0.5 MG/0.5 ML SYR IV STA (15:40)
[2016-06-07] MEDS ORDERED: HEPARIN 25000 UNIT/500 ML D5W ONE (15:58)
[2016-06-07 15:59] LABS: INR 0.9 (0.9-1.1); PARTIAL THROMBOPLASTIN RATIO 0.8
--- NOTE | 2016-06-07 17:17 | EMERGENCY ROOM VISIT NOTE ---
History Report prepared by Chon: Isrrael Kenny Under the Supervision of: Dr. Marlon Lau M.D. First contact with patient: 11:55 Chief Complaint: FLANK PAIN Stated Complaint: PAIN ON LEFT SIDE, BLOOD IN BOWELS THIS AM CROHN'S History of Present Illness The patient is a 61 year old female with a history of Crohn's Disease who presents to the Emergency Room with complaints of worsening right flank pain beginning one day prior to arrival. She describes her discomfort as burning and currently rates her discomfort as a 6/10 in severity. The patient associates nausea, a headache, intermittent chest pain above her breasts, and clear phlegm down the back of her throat with today's symptoms. She states her flank pain began at 6 PM last evening and worsened throughout the night. The patient notes she had a bowel movement this morning, in which, there was blood on the toilet paper. She denies blood in her stool. The patient states she has experienced intermittent headaches since she began antibiotics for an abscess on her fistula a few weeks ago. She notes she took Tylenol this morning, but it did not relieve her discomfort. The patient states she has been experiencing clear phlegm down the back of her throat for the past four days, and she has been sleeping in her recliner due to feeling like it is "choking" her at times. She denies any allergies. The patient notes her intermittent chest pain began a couple days ago and occurs with deep breaths. She denies feeling short of breath. The patient denies a runny nose, congestion, vomiting, diarrhea, fever, and urinary symptoms. 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 Review of Systems See HPI for pertinent positives & negatives. A total of 10 systems reviewed and were otherwise negative. Past Medical & Surgical Medical Problems: (1) Bowel obstruction (2) Cellulitis (3) Crohn's disease involving terminal ileum (4) Crohns disease (5) Rectal bleeding (6) SBO (small bowel obstruction) Family History Patient reports no known family medical history. Social History Smoking Status: Current Every Day Smoker Drug Use: none Marital Status: Housing Status: lives alone Occupation Status: unemployed Current/Historical Medications Scheduled Aspirin (Aspirin Ec), 81 MG PO DAILY Ciprofloxacin (Ciprofloxacin HCl), 500 MG PO Q12 Cyanocobalamin (Vitamin B12), 1,000 MCG PO DAILY Ferrous Sulfate (Iron), 325 MG PO DAILY Fluconazole (Diflucan), 150 MG PO DIRECTED Methylcellulose (Laxative) (Citrucel), 500 MG PO TID Metronidazole (Flagyl), 500 MG PO TID Omeprazole (Ra Omeprazole), 20 MG PO QAM Prednisone (Prednisone), 5 MG PO UD Probiotic Product (Digestive Advantage Probi), 1 CAP PO DAILY Trazodone Hcl (Trazodone), 50 MG PO HS Allergies Coded Allergies: No Known Allergies (Unverified , 06/07/16) Physical Exam Vital Signs Date Time Temp Pulse Resp B/P Pulse Ox O2 Delivery O2 Flow Rate FiO2 06/07/16 16:20 81 20 134/76 96 06/07/16 13:58 78 16 119/67 98 Room Air 06/07/16 12:42 86 06/07/16 11:36 36.7 96 20 170/94 96 Room Air Physical Exam Constitutional: Vital signs reviewed. Eyes: Pupils are equal round reactive to light. Conjunctiva are noninjected. ENT: Pharynx is clear without erythema or exudate. No swelling to the tongue or uvula. Mucous membranes are moist. Neck supple without meningeal signs. Respiratory: Clear to auscultation bilaterally. Breath sounds are equal bilaterally. Cardiovascular: Regular rate and rhythm. No rubs or gallops. GI: Right sided abdominal tenderness without guarding. Soft, nondistended. Bowel sounds are present. Musculoskeletal: Tenderness to anterior ribs bilaterally. No lower extremity tenderness. Integumentary: No cyanosis. Neurological: The patient is awake and alert. No focal deficits. Psychiatric: Normal affect. Medical Decision & Procedures ER Provider Diagnostic Interpretation: Radiology results as stated below per my review and the radiologist's interpretation: CHEST 2 VIEWS ROUTINE CLINICAL HISTORY: Chest pain. Right upper flank pain. COMPARISON STUDY: Chest radiograph April 27, 2016. FINDINGS: Lung volumes are normal. There is no pneumothorax or pleural effusion. Cardiac size is normal. Mediastinal contours are normal. There is no evidence of pulmonary edema. IMPRESSION: No acute cardiopulmonary findings. Electronically signed by: Teddy Burger M.D. 06/07/2016 1:[address] OF THE ABDOMEN AND PELVIS WITH CONTRAST CLINICAL HISTORY: Right flank pain. Bloody stool. Crohn's disease. COMPARISON STUDY: CT of the abdomen and pelvis May 09, 2016 and MR enterography May 12, 2016. TECHNIQUE: Following IV administration of 119 mL of Optiray-320, axial images of the abdomen and pelvis were obtained from the lung bases to the proximal femurs. Images were reviewed in the axial, sagittal, and coronal planes. IV contrast was administered without complication. Oral contrast was administered. CT DOSE: 1722.01 mGy.cm FINDINGS: Visualized portions of the lower chest demonstrate extensive bilateral pulmonary emboli. There is thrombus within the proximal inferior vena cava as well as the left common iliac vein. There is decreased distance between the right common iliac artery and left common iliac vein. No pneumatosis, free air or portal venous gas is present. The liver, spleen, adrenal glands, kidneys and pancreas are unremarkable. There is wall thickening of the distal ileum which is improved since exam of May 09, 2016. There is mild upstream small bowel dilatation. Contrast does not pass beyond this site. Adjacent infiltration within the mesentery with small fluid collections has also improved since prior exam. 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 The appendix is normal. There is sigmoid diverticulosis without evidence for acute diverticulitis. IMPRESSION: 1. Numerous segmental pulmonary emboli within visualized portions of the lower chest. In addition, thrombus within the proximal IVC and left common iliac vein. Decreased distance between the right common iliac artery and left common iliac vein. 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 Discussed with Dr. Gonzales at time of dictation. 2. Persistent, but improved, wall thickening and hyperemia of the distal ileum since CT of May 09, 2016. Persistent mild upstream small bowel dilatation with holdup of oral contrast at this site suggests a persistent partial small bowel obstruction. This could reflect a developing stricture. Improvement in associated mesenteric infiltration and tiny mesenteric fluid collections since prior exam. Electronically signed by: Teddy Burger M.D. 06/07/2016 3:37 PM Laboratory Results 06/07/16 12:35 Red Blood Count 4.72, Mean Corpuscular Volume 92.6, Mean Corpuscular Hemoglobin 32.4, Mean Corpuscular Hemoglobin Concent 35.0, Mean Platelet Volume 9.4, Neutrophils (%) (Auto) 65.2, Lymphocytes (%) (Auto) 20.5, Monocytes (%) (Auto) 9.0, Eosinophils (%) (Auto) 1.0, Basophils (%) (Auto) 0.3, Neutrophils # (Auto) 5.83, Lymphocytes # (Auto) 1.84, Monocytes # (Auto) 0.81, Eosinophils # (Auto) 0.09, Basophils # (Auto) 0.03 06/07/16 12:35 Test 06/07/16 12:12 06/07/16 12:35 Urine Color YELLOW Urine Appearance CLEAR (CLEAR) Urine pH 6.5 (4.5-7.5) Urine Specific Wilson 1.004 (1.000-1.030) Urine Protein NEG (NEG) Urine Glucose (UA) NEG (NEG) Urine Ketones NEG (NEG) Urine Occult Blood TRACE (NEG) Urine Nitrite NEG (NEG) Urine Bilirubin NEG (NEG) Urine Urobilinogen NEG (NEG) Urine Leukocyte Esterase NEG (NEG) Urine WBC (Auto) 0 /hpf (0-5) Urine RBC (Auto) 0-4 /hpf (0-4) Urine Hyaline Casts (Auto) 0 /lpf (0-5) Urine Epithelial Cells (Auto) 5-10 /lpf (0-5) Urine Bacteria (Auto) NEG (NEG) White Blood Count 8.96 K/uL (4.8-10.8) Red Blood Count 4.72 M/uL (4.2-5.4) Hemoglobin 15.3 g/dL (12.0-16.0) Hematocrit 43.7 % (37-47) Mean Corpuscular Volume 92.6 fL (80-100) Mean Corpuscular Hemoglobin 32.4 pg (25-34) Mean Corpuscular Hemoglobin Concent 35.0 g/dl (32-36) Platelet Count 208 K/uL (130-400) Mean Platelet Volume 9.4 fL (7.4-10.4) Neutrophils (%) (Auto) 65.2 % Lymphocytes (%) (Auto) 20.5 % Monocytes (%) (Auto) 9.0 % Eosinophils (%) (Auto) 1.0 % Basophils (%) (Auto) 0.3 % Neutrophils # (Auto) 5.83 K/uL (1.4-6.5) Lymphocytes # (Auto) 1.84 K/uL (1.2-3.4) Monocytes # (Auto) 0.81 K/uL (0.11-0.59) Eosinophils # (Auto) 0.09 K/uL (0-0.5) Basophils # (Auto) 0.03 K/uL (0-0.2) RDW Standard Deviation 49.9 fL (36.4-46.3) RDW Coefficient of Variation 14.8 % (11.5-14.5) Immature Granulocyte % (Auto) 4.0 % Immature Granulocyte # (Auto) 0.36 K/uL (0.00-0.02) Prothrombin Time 10.0 SECONDS (9.0-12.0) Prothromb Time International Ratio 0.9 (0.9-1.1) Activated Partial Thromboplast Time 20.5 SECONDS (21.0-31.0) Partial Thromboplastin Ratio 0.8 Anion Gap 11.0 mmol/L (3-11) Estimated GFR () 90.2 Estimated GFR (Non- 77.8 BUN/Creatinine Ratio 14.0 (10-20) Calcium Level 9.2 mg/dl (8.5-10.1) Total Bilirubin 0.4 mg/dl (0.2-1) Direct Bilirubin 0.1 mg/dl (0-0.2) Aspartate Amino Transf (AST/SGOT) 13 U/L (15-37) Alanine Aminotransferase (ALT/SGPT) 24 U/L (12-78) Alkaline Phosphatase 57 U/L (45-117) Total Protein 6.5 gm/dl (6.4-8.2) Albumin 3.0 gm/dl (3.4-5.0) Lipase 171 U/L (73-393) Laboratory results as reviewed by me. Medications Administered Medications (Trade) Dose Ordered Sig/Rachael Route Start Time Stop Time Status Last Admin Dose Admin Morphine Sulfate (MoRPHine SULFATE INJ) 4 mg ONE STAT IV 06/07/16 12:08 06/07/16 12:10 DC 06/07/16 12:59 4 MG Ondansetron HCl (Zofran Inj) 4 mg NOW STAT IV 06/07/16 12:08 06/07/16 12:10 DC 06/07/16 12:57 4 MG Morphine Sulfate (MoRPHine SULFATE INJ) 4 mg NOW STAT IV 06/07/16 13:33 06/07/16 13:34 DC 06/07/16 13:57 4 MG Hydromorphone HCl (Dilaudid Inj) 0.5 mg NOW STAT IV 06/07/16 14:34 06/07/16 14:35 DC 06/07/16 14:38 0.5 MG Hydromorphone HCl (Dilaudid Inj) 0.5 mg NOW STAT IV 06/07/16 15:40 06/07/16 15:42 DC 06/07/16 16:03 0.5 MG Heparin Sodium/ Dextrose (Heparin 25,000 Unit/500ml D5W) 25,000 unit STK-MED ONCE .ROUTE 06/07/16 15:58 06/07/16 15:59 DC 06/07/16 16:07 25,000 UNIT ECG Indication: chest pain Rate (beats per minute): 85 Rhythm: normal sinus Findings: no acute ischemic change, no ectopy ED Course 1200: The patient was evaluated in room A3. A complete history and physical exam was performed. 1208: Ordered Zofran Inj 4 mg IV, Morphine Sulfate 4 mg IV. 1328: Reevaluated the patient at this time, and she is still experiencing pain. 1333: Ordered Morphine Sulfate 4 mg IV. 1434: Ordered Dilaudid Inj 0.5 mg IV. 1538: Reevaluated and updated the patient at this time. She states she is still experiencing a lot of right flank pain, but her headache is much better. I discussed the risks of heparinization, and she agrees with it. 1540: Ordered Dilaudid Inj 0.5 mg IV, Heparin Sodium/ Dextrose 1 ea N/A. 1541: I spoke to Dr. Shankar [facility] [place] ([place] Medicine) about the patient's case , and she will follow the patient for further evaluation. 1543: I spoke to Dr. Henson, [facility] about the patient's case, and he recommended just to heparinize her. He states the patient is not a candidate for any intervention. Medical Decision This is a 61-year-old female who presents with abdominal pain, chest pain and phlegm production. Differential diagnosis includes pneumonia, pleurisy, cardiac , abscess, Crohn's exacerbation, bowel obstruction. I did perform a limited focused review of portions of the patient's old chart on the electronic medical record. The patient was admitted May 09 for an exacerbation of Crohn's Disease and was transferred to [place] on the . She had an MR that showed a phlegmon or micro abscess. I did evaluate the patient as noted above. She is complaining of abdominal pain on the right side of her abdomen where she had her prior abscess. She states it got worse yesterday. She also complains of chest pain but has some reproducible chest wall tenderness. She denies being short of breath but states that she has been having a lot of phlegm production which makes her choke a little bit. She also was a headache but states that she has a history of similar headaches in the past and this is not any worse than usual. IV access was established. 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 I did treat her with IV morphine and Zofran. I did order and personally review the patient's 12-lead EKG and chest x-ray as described above. I did order and review the patient's blood work as noted in the electronic medical record. Her white blood cell count is not elevated. I did order a CT of the abdomen and pelvis. I did review the images myself as well as the radiology report as described above. The patient has an IVC thrombus as well as multiple segmental pulmonary emboli. She also has a partial small bowel obstruction. I did discuss the test results with the patient. She had continued pain and was given repeated doses of morphine and Dilaudid IV. I did discuss with her risks and benefits of IV heparin. She was agreeable with treatment with heparin given her multiple pulmonary emboli and IVC thrombus. I did discuss the case with Dr. Henson of vascular surgery who agreed with the IV heparin. I did start her on a IV heparin drip without bolus. I did discuss case with the hospitalist and caser. Consults Time Called: 1533 Consulting Physician: NASIMA Benton (Internal Medicine) Returned Call: 1540 I spoke to NASIMA Benton (Internal Medicine) about the patient's case, and she will follow the patient for further evaluation. Additional Consults: Time Called: 1541 Consulted Physician: Dr. Henson, [facility] Returned Call: 1546 Additional Comments: I spoke to Dr. Henson, [facility] about the patient's case, and he recommended just to heparinize her. He states the patient is not a candidate for any intervention. Impression Primary Impression: Multiple pulmonary emboli Additional Impressions: Thrombosis of inferior vena cava Partial small bowel obstruction Critical Care I have personally spent 35 minutes of critical care time in the direct management of this patient. This includes bedside care, interpretation of diagnostic studies, and testing, discussion with consultants, patient, and family members, and other required patient management activities. This 35 minutes is in excess of all separately billable procedures. Scribe Attestation The scribe's documentation has been prepared under my direct and personally reviewed by me in its entirety. I confirm that the note above accurately reflects all work, treatment, procedures, and medical decision making performed by me. Departure Information Dispostion Being Evaluated By Hospitalist (Dr. Shankar, [facility] [place] (Internal Medicine[place] Referrals No Doctor, Assigned (PCP) Problem Qualifiers
--- NOTE | 2016-06-07 18:13 | History and Physical ---
History & Physical Date & Time of Service: Jun 07, 2016 at 18:03 Chief Complaint: Pain On Left Side, Blood In Bowels This Am Crohn's Primary Care Physician: Oc Sesay PA-C History of Present Illness Source: patient Ms. Freeman is a 61 year-old female with known Crohn's disease who was recently admitted for an SBO and found to have phlegmon/abscess on May 09 and was transferred to [place] for further management. According to patient, no surgical or endoscoping interventions were performed and she was managed medically with oral antibiotics cipro and flagyl to finish on 06/14/16 and discharged about 2 weeks ago. She had also been placed on a tapering dose of prednisone and she is to start taking prednisone 15mg tomorrow. She was in her usual state of health up until today where she developed acute RUQ abd pain which she usually gets with acute exacerbations of Crohn's and SBO with some pleurisy. SHe also reports very mild bilateral chest "tenderness" without any radiation and not associated with dyspnea. She reports she is active throughout the day and on her feet most of the day. No prolonged car rides, no plane rides. No fevers/chills, no n/v. She reports normal BM today without melena or hematochezia but did note blood when she wiped probably from her internal hemorrhoids. Past Medical/Surgical History PMH - Crohn's disease with recent phlegmon/abscess - recent SBO - diverticulosis - internal hemorrhoids PSH: - multiple colonoscopies - EGD - tubal ligation Allergies: NKDA Social hx - active smoker x20 years, from 1PPD down to 02/09 PPD - no ETOH abuse FHx: - sister with bilateral mastectomies - another sister with diverticulosis/itis - mother with unspecified heart disease Family History Patient reports no known family medical history. Social History Smoking Status: Current Every Day Smoker Drug Use: none Marital Status: Housing status: lives alone Occupational Status: unemployed Multi-Drug Resistant Organisms History of MDRO: No Allergies Coded Allergies: No Known Allergies (Unverified , 06/07/16) Home Medications Scheduled Aspirin (Aspirin Ec), 81 MG PO DAILY Ciprofloxacin (Ciprofloxacin HCl), 500 MG PO Q12 Cyanocobalamin (Vitamin B12), 1,000 MCG PO DAILY Ferrous Sulfate (Iron), 325 MG PO DAILY Fluconazole (Diflucan), 150 MG PO DIRECTED Methylcellulose (Laxative) (Citrucel), 500 MG PO TID Metronidazole (Flagyl), 500 MG PO TID Omeprazole (Ra Omeprazole), 20 MG PO QAM Prednisone (Prednisone), 5 MG PO UD Probiotic Product (Digestive Advantage Probi), 1 CAP PO DAILY Trazodone Hcl (Trazodone), 50 MG PO HS Review of Systems ROS as per HPI. Rest of ROS negative. Physical Exam Vital Signs Date Time Temp Pulse Resp B/P Pulse Ox O2 Delivery O2 Flow Rate FiO2 06/07/16 17:53 84 16 134/76 97 06/07/16 16:20 81 20 134/76 96 06/07/16 13:58 78 16 119/67 98 Room Air 06/07/16 12:42 86 06/07/16 11:36 36.7 96 20 170/94 96 Room Air nad, aox3, coherent and fluent speech s1 s2 rrr, no murmurs appreciated ctab no w/r/r abd soft epigastric and RUQ tenderness, nd, +BS no LE edema Diagnostics Laboratory Results Results Past 24 Hours Test 06/07/16 12:12 06/07/16 12:35 Range/Units Urine Color YELLOW Urine Appearance CLEAR CLEAR Urine pH 6.5 4.5-7.5 Urine Specific Ovid 1.004 1.000-1.030 Urine Protein NEG NEG Urine Glucose (UA) NEG NEG Urine Ketones NEG NEG Urine Occult Blood TRACE NEG Urine Nitrite NEG NEG Urine Bilirubin NEG NEG Urine Urobilinogen NEG NEG Urine Leukocyte Esterase NEG NEG Urine WBC (Auto) 0 0-5 /hpf Urine RBC (Auto) 0-4 0-4 /hpf Urine Hyaline Casts (Auto) 0 0-5 /lpf Urine Epithelial Cells (Auto) 5-10 0-5 /lpf Urine Bacteria (Auto) NEG NEG White Blood Count 8.96 4.8-10.8 K/uL Red Blood Count 4.72 4.2-5.4 M/uL Hemoglobin 15.3 12.0-16.0 g/dL Hematocrit 43.7 37-47 % Mean Corpuscular Volume 92.6 80-100 fL Mean Corpuscular Hemoglobin 32.4 25-34 pg Mean Corpuscular Hemoglobin Concent 35.0 32-36 g/dl Platelet Count 208 130-400 K/uL Mean Platelet Volume 9.4 7.4-10.4 fL Neutrophils (%) (Auto) 65.2 % Lymphocytes (%) (Auto) 20.5 % Monocytes (%) (Auto) 9.0 % Eosinophils (%) (Auto) 1.0 % Basophils (%) (Auto) 0.3 % Neutrophils # (Auto) 5.83 1.4-6.5 K/uL Lymphocytes # (Auto) 1.84 1.2-3.4 K/uL Monocytes # (Auto) 0.81 0.11-0.59 K/uL Eosinophils # (Auto) 0.09 0-0.5 K/uL Basophils # (Auto) 0.03 0-0.2 K/uL RDW Standard Deviation 49.9 36.4-46.3 fL RDW Coefficient of Variation 14.8 11.5-14.5 % Immature Granulocyte % (Auto) 4.0 % Immature Granulocyte # (Auto) 0.36 0.00-0.02 K/uL Prothrombin Time 10.0 9.0-12.0 SECONDS Prothromb Time International Ratio 0.9 0.9-1.1 Activated Partial Thromboplast Time 20.5 21.0-31.0 SECONDS Partial Thromboplastin Ratio 0.8 Sodium Level 144 136-145 mmol/L Potassium Level 3.8 3.5-5.1 mmol/L Chloride Level 105 98-107 mmol/L Carbon Dioxide Level 28 21-32 mmol/L Anion Gap 11.0 3-11 mmol/L Blood Urea Nitrogen 11 7-18 mg/dl Creatinine 0.81 0.60-1.20 mg/dl Estimated GFR () 90.2 Estimated GFR (Non- 77.8 BUN/Creatinine Ratio 14.0 10-20 Random Glucose 84 70-99 mg/dl Calcium Level 9.2 8.5-10.1 mg/dl Total Bilirubin 0.4 0.2-1 mg/dl Direct Bilirubin 0.1 0-0.2 mg/dl Aspartate Amino Transf (AST/SGOT) 13 15-37 U/L Alanine Aminotransferase (ALT/SGPT) 24 12-78 U/L Alkaline Phosphatase 57 45-117 U/L Total Protein 6.5 6.4-8.2 gm/dl Albumin 3.0 3.4-5.0 gm/dl Lipase 171 73-393 U/L Diagnostic Radiology CHEST 2 VIEWS ROUTINE CLINICAL HISTORY: Chest pain. Right upper flank pain. COMPARISON STUDY: Chest radiograph April 27, 2016. FINDINGS: Lung volumes are normal. There is no pneumothorax or pleural effusion. Cardiac size is normal. Mediastinal contours are normal. There is no evidence of pulmonary edema. IMPRESSION: No acute cardiopulmonary findings. CT OF THE ABDOMEN AND PELVIS WITH CONTRAST CLINICAL HISTORY: Right flank pain. Bloody stool. Crohn's disease. COMPARISON STUDY: CT of the abdomen and pelvis May 09, 2016 and MR enterography May 12, 2016. TECHNIQUE: Following IV administration of 119 mL of Optiray-320, axial images of the abdomen and pelvis were obtained from the lung bases to the proximal femurs. Images were reviewed in the axial, sagittal, and coronal planes. IV contrast was administered without complication. Oral contrast was administered. CT DOSE: 1722.01 mGy.cm FINDINGS: Visualized portions of the lower chest demonstrate extensive bilateral pulmonary emboli. There is thrombus within the proximal inferior vena cava as well as the left common iliac vein. There is decreased distance between the right common iliac artery and left common iliac vein. No pneumatosis, free air or portal venous gas is present. The liver, spleen, adrenal glands, kidneys and pancreas are unremarkable. There is wall thickening of the distal ileum which is improved since exam of May 09, 2016. There is mild upstream small bowel dilatation. Contrast does not pass beyond this site. Adjacent infiltration within the mesentery with small fluid collections has also improved since prior exam. 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 The appendix is normal. There is sigmoid diverticulosis without evidence for acute diverticulitis. IMPRESSION: 1. Numerous segmental pulmonary emboli within visualized portions of the lower chest. In addition, thrombus within the proximal IVC and left common iliac vein. Decreased distance between the right common iliac artery and left common iliac vein. 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 Discussed with Dr. Gonzales at time of dictation. 2. Persistent, but improved, wall thickening and hyperemia of the distal ileum since CT of May 09, 2016. Persistent mild upstream small bowel dilatation with holdup of oral contrast at this site suggests a persistent partial small bowel obstruction. This could reflect a developing stricture. Improvement in associated mesenteric infiltration and tiny mesenteric fluid collections since prior exam. EKG Normal sinus rhythm Normal ECG No previous ECGs available Confirmed by MANUELITO FRANKS ([id number]) on 06/07/2016 2:13:42 PM Impression Assessment and Plan 1. Multiple PEs - EKG without e/o RV strain - check echo - heparin gtt, would likely need coumadin rather than NOAC (insurance problems) - LE dopplers to evaluate clot burden - tele monitoring 2. Abdominal pain - pSBO resolving on CT abd, no n/v - lipase wnl - cont cipro/flagyl until 06/14 - probiotics - b12 and iron supplements - pain mgt - clear liquid diet and advance as tolerated 3. Crohn's disease - tapering doses of steroids, pred 15 daily and slowly taper
[2016-06-07] MEDS ORDERED: GLUCAGON FOR INJ 1 MG VIAL SQ PRN (18:15)
[2016-06-07] MEDS ORDERED: GLUCOSE 40% GEL 15 GM TUBE PO PRN (18:15)
[2016-06-07] MEDS ORDERED: HYDROmorphone INJ 1 MG/ML SYR IV PRN (18:15)
[2016-06-07] MEDS ORDERED: GLUCOSE 10 TABS/TUBE PO PRN (18:15)
[2016-06-07] MEDS ORDERED: DEXTROSE 50% 50 ML SYR IV PRN (18:15)
[2016-06-07] MEDS: HYDROmorphone INJ 0.5 MG/0.5 ML SYR IV PRN ×2 (18:40→23:08)
[2016-06-07 19:43] VITALS: BP 128/83; TEMP 36.5; O2SAT 94; Ht 167.6 cm; Wt 118.9 kg
[2016-06-07] MEDS: MoRPHine SULFATE 4 MG/ML 1 ML CARP\\VIAL IV PRN (20:13)
[2016-06-07] MEDS: METRONIDAZOLE 500 MG TAB PO SCH (20:13)
[2016-06-07] MEDS: CIPROFLOXACIN 500 MG TAB PO SCH (20:14)
[2016-06-07] MEDS ORDERED: HYDROmorphone INJ 1 MG/ML SYR IV ONE (21:00)
[2016-06-07 22:29] LABS: PARTIAL THROMBOPLASTIN RATIO 1.6
[2016-06-07 23:12] VITALS: BP 108/70; PULSE 77; TEMP 37; O2SAT 93
[2016-06-07] MEDS ORDERED: HEPARIN IV BOLUS 3,000 UNIT in SYRINGE 0 ML IV ONE (23:45)
[2016-06-07] MEDS: TRAZODONE HCL 50 MG TAB PO PRN (23:51)
[2016-06-08] VITALS (8 sets, daily range): BP systolic 108–133; BP diastolic 69–88; PULSE 62–75; TEMP 36.3–37; O2SAT 93–97
[2016-06-08] MEDS: HEPARIN 25,000 UNIT/500ML D5W 500 ML IV PRN ×2 (00:21→09:16)
[2016-06-08] MEDS ORDERED: COUGH DROP (SUGAR FREE) LOZ 24 LOZ/1 BOX ONE (02:14)
[2016-06-08] MEDS: HYDROmorphone INJ 0.5 MG/0.5 ML SYR IV PRN ×2 (03:25→07:58)
[2016-06-08 06:14] LABS: BASO % 0.4 %; BASO ABS # 0.04 K/uL (0-0.2); COMPLETE YES; HEMATOCRIT 43.6 % (37-47); LYMPH % 29.6 %; LYMPH ABS # 2.77 K/uL (1.2-3.4); MEAN CORPUSCULAR HEMOGLOBIN 31.7 pg (25-34); MEAN CORPUSCULAR HGB CONC 33.7 g/dl (32-36); MEAN PLATELET VOLUME 9.5 fL (7.4-10.4); MONO % 8.1 %; NEUT % 56.9 %; PLATELET COUNT 237 K/uL (130-400); RED BLOOD COUNT 4.64 M/uL (4.2-5.4); WHITE BLOOD COUNT 9.36 K/uL (4.8-10.8)
--- NOTE | 2016-06-08 06:41 | DIAGNOSTIC IMAGING REPORT ---
ULTRASOUND VENOUS DOPPLER LWR EXT BILA CLINICAL HISTORY: Pulmonary embolism PAIN COMPARISON STUDY: 08/30/2013 no evidence of lower extremity DVT. FINDINGS: Real-time and color flow Doppler imaging were performed. Flow was seen within the femoral, popliteal and calf veins with no intraluminal thrombus demonstrated. The saphenous vein is patent. IMPRESSION: No evidence of deep venous thrombosis. Electronically signed by: Sacha Cash M.D. 06/08/2016 6:40 AM Dictated Date/Time: 06/08/2016 6:39 AM
[2016-06-08 06:51] LABS: ALB/GLOB RATIO 0.8 (0.9-2); BUN/CREATININE RATIO 9.2 (10-20); CALCIUM 9.6 mg/dl (8.5-10.1); CREATININE 0.88 mg/dl (0.60-1.20); MAGNESIUM 2.1 mg/dl (1.8-2.4); POTASSIUM 4.3 mmol/L (3.5-5.1)
[2016-06-08] MEDS: LACTOBACILLUS ACIDOPHILUS (FLORANEX) TAB PO SCH (08:03)
[2016-06-08] MEDS: CIPROFLOXACIN 500 MG TAB PO SCH ×2 (08:03→21:26)
[2016-06-08] MEDS: CYANOCOBALAMIN 500 MCG TAB (VIT B-12) PO SCH (08:03)
[2016-06-08] MEDS: PANTOprazole SOD 40 MG TAB PO SCH (08:03)
[2016-06-08] MEDS: METRONIDAZOLE 500 MG TAB PO SCH ×3 (08:03→21:26)
[2016-06-08] MEDS: ASPIRIN 81 MG ECTAB PO SCH (08:04)
[2016-06-08] MEDS: FERROUS SULFATE 325 MG TAB PO SCH (08:04)
[2016-06-08] MEDS: NICOTINE 7 MG/24 HR TDSY TD SCH (09:46)
[2016-06-08] MEDS ORDERED: OPTIRAY 320 IV PRN (10:00)
--- NOTE | 2016-06-08 10:05 | Progress Note ---
Subjective Date of Service: June 08, 2016. Subjective Pt evaluation today including: conversation w/ patient, physical exam, lab review, review of studies, review of inpatient medication list Pain: right flank pain, moderate PO Intake: tolerating clears, wants more Voiding: no voiding problems no breathing issues or chest pain, still with flank pain discussed results of CT and need for CT chest to determine clot burden no clot on dopplers but she did have IVC thrombus and some iliac thrombus eating well, wants to see Dr. Gomez for new medications, will call his office Problem List Medical Problems: (1) Diarrhea Status: Acute (2) Fistula of intestine, excluding rectum and anus Status: Acute (3) Multiple pulmonary emboli Status: Acute (4) Partial small bowel obstruction Status: Acute (5) Rectal bleed Status: Acute (6) RLQ abdominal pain Status: Acute (7) Small bowel obstruction Status: Acute (8) Small bowel obstruction Status: Acute (9) 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 Review of Systems Abdomen: + pain (RLQ and right flank) All Other Systems: Reviewed and Negative Medications Current Inpatient Medications Medications (Trade) Dose Ordered Sig/Rachael Route Start Time Stop Time Status Last Admin Dose Admin Ioversol (Optiray 320) 125 ml UD PRN IV 06/07/16 13:15 06/11/16 13:14 Aspirin (Ecotrin Tab) 81 mg QAM PO 06/08/16 09:00 07/08/16 08:59 06/08/16 08:04 81 MG Glucose (Glucose 40% Gel) 15-30 GRAMS 15 GRAMS... UD PRN PO 06/07/16 18:15 07/07/16 18:14 Glucose (Glucose Chew Tab) 4-8 Tablets 4 Tabl... UD PRN PO 06/07/16 18:15 07/07/16 18:14 Dextrose (Dextrose 50% 50ML Syringe) 25-50ML OF 50% DW IV FOR... UD PRN IV 06/07/16 18:15 07/07/16 18:14 Glucagon (Glucagon Inj) 1 mg UD PRN SQ 06/07/16 18:15 07/07/16 18:14 Ciprofloxacin (Cipro Tab) 500 mg Q12 PO 06/07/16 21:00 06/14/16 21:30 06/08/16 08:03 500 MG Metronidazole (Flagyl Tab) 500 mg TID PO 06/07/16 21:00 06/14/16 21:30 06/08/16 08:03 500 MG Trazodone HCl (Desyrel Tab) 50 mg HS PRN PO 06/07/16 18:15 07/07/16 18:14 06/07/16 23:51 50 MG Cyanocobalamin (Vitamin B-12 Tab) 1,000 mcg DAILY PO 06/08/16 09:00 07/08/16 08:59 06/08/16 08:03 1,000 MCG Ferrous Sulfate (Feosol Tab) 325 mg DAILY PO 06/08/16 09:00 07/08/16 08:59 06/08/16 08:04 325 MG Pantoprazole Sodium (Protonix Tab) 40 mg QAM PO 06/08/16 09:00 07/08/16 08:59 06/08/16 08:03 40 MG Lactobacillus Acidophilus (Floranex Tab) 1 tab DAILY PO 06/08/16 09:00 07/08/16 08:59 06/08/16 08:03 1 TAB Morphine Sulfate (MoRPHine SULFATE INJ) 4 mg Q3H PRN IV 06/07/16 18:15 06/21/16 18:14 06/07/16 20:13 4 MG Hydromorphone HCl 0.5 mg 0.5 mg Q3H PRN IV 06/07/16 18:15 06/21/16 18:14 06/08/16 07:58 0.5 MG Heparin Sodium/ Dextrose (Heparin 25,000 Unit/500ml D5W) 500 ml @ 30 mls/hr [id number] PRN IV 06/07/16 20:30 07/07/16 20:29 06/08/16 09:16 30 MLS/HR Nicotine (Nicoderm Cq 7 Mg Patch) 1 patch QAM TD 06/08/16 09:00 07/08/16 08:59 06/08/16 09:46 1 PATCH Miscellaneous (Remove Nicoderm Patch) 1 ea HS N/A 06/08/16 21:00 07/08/16 20:59 Ioversol (Optiray 320) 100 ml UD PRN IV 06/08/16 10:00 06/12/16 09:59 Objective Vital Signs Date Time Temp Pulse Resp B/P Pulse Ox O2 Delivery O2 Flow Rate FiO2 06/08/16 08:00 97 Room Air 06/08/16 07:39 36.9 62 19 108/69 97 Nasal Cannula 2.0 06/08/16 04:00 Nasal Cannula 2.0 06/08/16 03:51 37.0 72 18 132/88 94 06/07/16 23:59 Nasal Cannula 2.0 06/07/16 23:12 37.0 77 16 108/70 93 Nasal Cannula 2.0 06/07/16 19:43 36.5 18 128/83 94 Room Air 06/07/16 17:53 84 16 134/76 97 06/07/16 16:20 81 20 134/76 96 06/07/16 13:58 78 16 119/67 98 Room Air 06/07/16 12:42 86 06/07/16 11:36 36.7 96 20 170/94 96 Room Air Physical Exam General Appearance: no apparent distress, + obese Eyes: normal inspection, EOMI, sclerae normal ENT: normal ENT inspection, hearing grossly normal, pharynx normal Neck: supple, no adenopathy, no JVD, trachea midline Respiratory/Chest: chest non-tender, lungs clear, normal breath sounds, no respiratory distress, no accessory muscle use Cardiovascular: regular rate, rhythm, no edema, no gallop, no JVD, no murmur Abdomen: normal bowel sounds, non tender, soft, no organomegaly Extremities: normal range of motion, non-tender, normal inspection, no pedal edema, no calf tenderness, pelvis stable 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/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: 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, no motor/sensory deficits, alert, normal mood/affect, oriented x 3 Skin: normal color, warm/dry, no rash Lymphatic: no adenopathy Laboratory Results Last 24 Hours Test 06/07/16 12:12 06/07/16 12:35 06/07/16 22:06 06/08/16 03:20 Urine Color YELLOW Urine Appearance CLEAR Urine pH 6.5 Urine Specific [place] 1.004 Urine Protein NEG Urine Glucose (UA) NEG Urine Ketones NEG Urine Occult Blood TRACE Urine Nitrite NEG Urine Bilirubin NEG Urine Urobilinogen NEG Urine Leukocyte Esterase NEG Urine WBC (Auto) 0 /hpf Urine RBC (Auto) 0-4 /hpf Urine Hyaline Casts (Auto) 0 /lpf Urine Epithelial Cells (Auto) 5-10 /lpf Urine Bacteria (Auto) NEG White Blood Count 8.96 K/uL Red Blood Count 4.72 M/uL Hemoglobin 15.3 g/dL Hematocrit 43.7 % Mean Corpuscular Volume 92.6 fL Mean Corpuscular Hemoglobin 32.4 pg Mean Corpuscular Hemoglobin Concent 35.0 g/dl Platelet Count 208 K/uL Mean Platelet Volume 9.4 fL Neutrophils (%) (Auto) 65.2 % Lymphocytes (%) (Auto) 20.5 % Monocytes (%) (Auto) 9.0 % Eosinophils (%) (Auto) 1.0 % Basophils (%) (Auto) 0.3 % Neutrophils # (Auto) 5.83 K/uL Lymphocytes # (Auto) 1.84 K/uL Monocytes # (Auto) 0.81 K/uL Eosinophils # (Auto) 0.09 K/uL Basophils # (Auto) 0.03 K/uL RDW Standard Deviation 49.9 fL RDW Coefficient of Variation 14.8 % Immature Granulocyte % (Auto) 4.0 % Immature Granulocyte # (Auto) 0.36 K/uL Prothrombin Time 10.0 SECONDS Prothromb Time International Ratio 0.9 Activated Partial Thromboplast Time 20.5 SECONDS 42.7 SECONDS Partial Thromboplastin Ratio 0.8 1.6 Sodium Level 144 mmol/L Potassium Level 3.8 mmol/L Chloride Level 105 mmol/L Carbon Dioxide Level 28 mmol/L Anion Gap 11.0 mmol/L Blood Urea Nitrogen 11 mg/dl Creatinine 0.81 mg/dl Estimated GFR () 90.2 Estimated GFR (Non- 77.8 BUN/Creatinine Ratio 14.0 Random Glucose 84 mg/dl Calcium Level 9.2 mg/dl Total Bilirubin 0.4 mg/dl Direct Bilirubin 0.1 mg/dl Aspartate Amino Transf (AST/SGOT) 13 U/L Alanine Aminotransferase (ALT/SGPT) 24 U/L Alkaline Phosphatase 57 U/L Total Protein 6.5 gm/dl Albumin 3.0 gm/dl Lipase 171 U/L Bedside Glucose 121 mg/dl Test 06/08/16 06:00 White Blood Count 9.36 K/uL Red Blood Count 4.64 M/uL Hemoglobin 14.7 g/dL Hematocrit 43.6 % Mean Corpuscular Volume 94.0 fL Mean Corpuscular Hemoglobin 31.7 pg Mean Corpuscular Hemoglobin Concent 33.7 g/dl Platelet Count 237 K/uL Mean Platelet Volume 9.5 fL Neutrophils (%) (Auto) 56.9 % Lymphocytes (%) (Auto) 29.6 % Monocytes (%) (Auto) 8.1 % Eosinophils (%) (Auto) 1.0 % Basophils (%) (Auto) 0.4 % Neutrophils # (Auto) 5.33 K/uL Lymphocytes # (Auto) 2.77 K/uL Monocytes # (Auto) 0.76 K/uL Eosinophils # (Auto) 0.09 K/uL Basophils # (Auto) 0.04 K/uL RDW Standard Deviation 51.5 fL RDW Coefficient of Variation 15.1 % Immature Granulocyte % (Auto) 4.0 % Immature Granulocyte # (Auto) 0.37 K/uL Activated Partial Thromboplast Time 78.3 SECONDS Partial Thromboplastin Ratio 3.0 Sodium Level 139 mmol/L Potassium Level 4.3 mmol/L Chloride Level 100 mmol/L Carbon Dioxide Level 34 mmol/L Anion Gap 5.0 mmol/L Blood Urea Nitrogen 8 mg/dl Creatinine 0.88 mg/dl Est Creatinine Clear Calc Drug Dose 87.0 ml/min Estimated GFR () 81.6 Estimated GFR (Non- 70.4 BUN/Creatinine Ratio 9.2 Random Glucose 108 mg/dl Calcium Level 9.6 mg/dl Magnesium Level 2.1 mg/dl Total Bilirubin 0.6 mg/dl Aspartate Amino Transf (AST/SGOT) 12 U/L Alanine Aminotransferase (ALT/SGPT) 24 U/L Alkaline Phosphatase 57 U/L Total Protein 6.6 gm/dl Albumin 3.0 gm/dl Globulin 3.6 gm/dl Albumin/Globulin Ratio 0.8 Assessment and Plan 61 yo female with h/o Crohn's disease, presented with right flank pain, found to have lower lobe PE on CT of the abdomen/pelvis, admitted and started on heparin gtt 1. Pulmonary emboli: lower lobes, no dyspnea or hypoxia will check dedicated CTA chest to determine extent of clots dopplers negative would likely be considered provoked since she has been hospitalized multiple times in past months heparin gtt, start Coumadin 10mg today, INR tomorrow plan for Coumadin on d/c with Lovenox bridge transfer off tele 2. Abdominal pain, Crohn's disease with recent flare secondary to Crohn's disease, less inflammation on current CT continue Cipro/Flagyl until 06/[address] Gomez to determine what medication she was to start this week
--- NOTE | 2016-06-08 10:32 | ECHOCARDIOGRAM REPORT ---
*NOTICE TO RECEIVING CONSTITUTION PARTY AGENCY This information is strictly Confidential and protected under [place] law. [place] law prohibits you from making any further disclosure of this information unless further disclosure is expressly permitted by the written consent of the person to whom it pertains or is authorized by law. A general authorization for the release of medical or other information is not sufficient for this purpose. Hospital accepts no responsibility if the information is made available to any other person, INCLUDING THE PATIENT. Interpretation Summary * Name: JAYDON DIMAS Study Date: 06/08/2016 07:04 AM BP: 108/69 mmHg * Patient Location: C.2T\S\S240\S\2 HR: 62 * : 1955 (M/d/yyyy) Gender: Female Height: 66 in * Age: 61 yrs Ethnicity: CA Weight: 257 lb * Ordering Physician: Eliane May * Referring Physician: Self, Referred * Performed By: Veronique Dawson RDCS * * Reason For Study: PE * BSA: 2.2 m2 * -- Conclusions -- * 1. Normal LV size. Mild concentric LVH. * 2. Normal LV systolic function. LVEF 50-55%. No regional wall motion abnormalities. * 3. Normal RV size and function. * 4. No significant valvular abnormalities. * 5. Grade I diastolic dysfunction. * 6. Normal estimated RA and PA pressures. * 7. No prior studies for comparison. Procedure Details * A contrast injection of Definity was performed to improve assessment of LV function. * Contrast was injected into an intravenous site in the right arm. * One vial of Definity ultrasound contrast was diluted in normal saline to a total volume of 10 ml. A total of '2' ml of solution was administered during imaging. * Lot # [id number] of Definity utilized for procedure. * Expiration date MAY 26. * The attending nurse who injected the contrast agent was JESSICA SEALS RN. Left Ventricle * The left ventricle is grossly normal size. * There is mild concentric left ventricular hypertrophy. * Ejection Fraction = 50-55%. * No regional wall motion abnormalities noted. Right Ventricle * The right ventricle is grossly normal size. * The right ventricular systolic function is normal as assessed by tricuspid annular plane systolic excursion (TAPSE) (normal >1.5 cm). Atria * The left atrial size is normal. * Right atrial size is normal. * No ASD detected; PFO is not assessed. Mitral Valve * The mitral valve is grossly normal. * There is no mitral valve stenosis. * Significant mitral regurgitation is absent. Tricuspid Valve * The tricuspid valve is not well visualized, but is grossly normal. * There is no tricuspid stenosis. * Significant tricuspid regurgitation is absent. Aortic Valve * No hemodynamically significant valvular aortic stenosis. Pulmonic Valve * The pulmonic valve is not well visualized. * Pulmonic stenosis is absent. * There is no pulmonic valvular regurgitation. Great Vessels * The aortic root and proximal ascending aorta are normal sized. * No Doppler or imaging evidence of an aortic coarctation. Pericardium/Pleural * There is no pericardial effusion. Great Vessels * Normal inferior vena cava size and collapsability with sniff indicates a normal right atrial pressure of 3 mmHg Left Ventricular Diastolic Function * Grade I diastolic dysfunction, (abnormal relaxation pattern). MMode 2D Measurements and Calculations IVSd 1.4 cm IVSs 1.8 cm LVIDd 4.1 cm LVIDs 3.0 cm LVPWd 1.5 cm LVPWs 2.0 cm IVS/LVPW 0.92 FS 26.9 % EDV(Teich) 73.2 ml ESV(Teich) 34.4 ml EF(Teich) 53.0 % EDV(cubed) 67.7 ml ESV(cubed) 26.4 ml EF(cubed) 61.0 % % IVS thick 30.7 % % LVPW thick 31.2 % LV mass(C)d 225.8 grams LV mass(C)dI 101.5 grams/m\S\2 LV mass(C)s 236.5 grams LV mass(C)sI 106.3 grams/m\S\2 SV(Teich) 38.8 ml SI(Teich) 17.4 ml/m\S\2 SV(cubed) 41.3 ml SI(cubed) 18.6 ml/m\S\2 Ao root diam 3.4 cm Ao root area 9.1 cm\S\2 LVAd ap4 37.9 cm\S\2 LVLd ap4 9.6 cm EDV(MOD-sp4) 123.0 ml LVAs ap4 23.5 cm\S\2 LVLs ap4 8.2 cm ESV(MOD-sp4) 58.2 ml EF(MOD-sp4) 52.7 % LVAd ap2 28.9 cm\S\2 LVLd ap2 8.8 cm EDV(MOD-sp2) 78.6 ml LVAs ap2 17.2 cm\S\2 LVLs ap2 7.9 cm ESV(MOD-sp2) 31.3 ml EF(MOD-sp2) 60.2 % SV(MOD-sp4) 64.8 ml SI(MOD-sp4) 29.1 ml/m\S\2 SV(MOD-sp2) 47.3 ml SI(MOD-sp2) 21.3 ml/m\S\2 Doppler Measurements and Calculations MV E max rhiannon 65.5 cm/sec MV A max rhiannon 77.1 cm/sec MV E/A 0.85 MV dec time 0.17 sec Ao V2 max 97.7 cm/sec Ao max PG 3.8 mmHg Ao max PG (full) 1.6 mmHg LV V1 max PG 2.2 mmHg LV V1 max 74.7 cm/sec
--- NOTE | 2016-06-08 11:27 | DIAGNOSTIC IMAGING REPORT ---
CHEST CTA for PULMONARY ARTERIES CT DOSE: 704.98 mGy.cm HISTORY: Chest pain. Pulmonary embolus. TECHNIQUE: Multiaxial CT images of the chest were performed following the intravenous administration of contrast to evaluate the pulmonary arteries. Maximal intensity projection images were also obtained. COMPARISON STUDY: CT abdomen and pelvis dated 06/07/2016 FINDINGS: Findings of rather extensive bilateral pulmonary emboli. There is extensive emboli involvement of the right lower lobe pulmonary arterial distribution. Less prominent involvement is seen involving the right upper lobe pulmonary arterial distribution. There are smaller filling defects involving the left upper lobe pulmonary arteries. There is moderate involvement of the left lower lobe pulmonary arterial vasculature. There is no evidence for main central or saddle embolus. Mild emphysematous and interstitial changes noted bilaterally. There are no consolidative infiltrative changes. IMPRESSION: Extensive bilateral pulmonary emboli. Electronically signed by: Barrie Kurtz M.D. 06/08/2016 11:26 AM Dictated Date/Time: 06/08/2016 11:21 AM
[2016-06-08] MEDS ORDERED: HYDROmorphone INJ 1 MG/ML SYR IV PRN (12:15)
[2016-06-08 13:32] LABS: PARTIAL THROMBOPLASTIN RATIO 2.3
[2016-06-08] MEDS: MoRPHine SULFATE 4 MG/ML 1 ML CARP\\VIAL IV PRN (14:52)
[2016-06-08] MEDS ORDERED: WARFARIN SOD 5 MG TAB PO SCH (16:00)
[2016-06-08] MEDS ORDERED: NURSING VERBAL MED ORDER ONE ×2 (19:30→21:15)
[2016-06-08] MEDS: GUAIFENESIN 600 MG TABCR PO SCH (21:25)
[2016-06-08] MEDS ORDERED: CHOLESTYRAMINE LIGHT 4 GM PKT PO STA (21:34)
[2016-06-09] VITALS (7 sets, daily range): BP systolic 107–126; BP diastolic 67–77; PULSE 75–80; TEMP 36.3–37.1; O2SAT 91–93
[2016-06-09] MEDS: TRAZODONE HCL 50 MG TAB PO PRN ×2 (00:14→21:12)
[2016-06-09] MEDS: HEPARIN 25,000 UNIT/500ML D5W 500 ML IV PRN ×2 (01:14→19:16)
[2016-06-09] MEDS: MoRPHine SULFATE 4 MG/ML 1 ML CARP\\VIAL IV PRN (01:15)
[2016-06-09 07:23] LABS: PARTIAL THROMBOPLASTIN RATIO 3.4
[2016-06-09] MEDS: CYANOCOBALAMIN 500 MCG TAB (VIT B-12) PO SCH (07:38)
[2016-06-09] MEDS: FERROUS SULFATE 325 MG TAB PO SCH (07:38)
[2016-06-09] MEDS: LACTOBACILLUS ACIDOPHILUS (FLORANEX) TAB PO SCH (07:38)
[2016-06-09] MEDS: METRONIDAZOLE 500 MG TAB PO SCH ×3 (07:38→21:13)
[2016-06-09] MEDS: NICOTINE 7 MG/24 HR TDSY TD SCH (07:38)
[2016-06-09] MEDS: GUAIFENESIN 600 MG TABCR PO SCH ×2 (07:38→21:12)
[2016-06-09] MEDS: PANTOprazole SOD 40 MG TAB PO SCH (07:38)
[2016-06-09] MEDS: CIPROFLOXACIN 500 MG TAB PO SCH ×2 (07:38→21:12)
[2016-06-09] MEDS: ASPIRIN 81 MG ECTAB PO SCH (07:38)
--- NOTE | 2016-06-09 09:35 | Medical Student: [facility] ---
Med Student Progress Note Date of Service June 09, 2016. Subjective Pt evaluation today including: conversation w/ patient, physical exam, chart review Pain: slight headache and abdominal pain, but less than before (04/17) PO Intake: Eating and drinking normally Voiding: no voiding problems, no incontinence Ms. Freeman is a 61 yr old female with a PMH of Crohn's disease who was admitted for R flank pain.Upon admission she was found to have bilateral pulmonary emboli and partial small bowel obstruction. Today the patient appears anxious but reports relief of abdominal pain and headache since yesterday. Last night she had severe diarrhea and was given a powder solution and she has not has a bowel movement since then. She reports no blood with her diarrhea. Other than the diarrhea, she slept well last night and has been able to eat and drink normally. She still reports an inability to clear her throat and feels that there is phlegm stuck in her throat. She is worried about what caused her clots and how to stop them from happening again. She is also worried about getting her GI doctor lined up. Review of Systems Constitutional: No chills, No fatigue, No fever, No problem reported, No see HPI, No sweats, No weakness, No weight loss Eyes: No diplopia, No discharge, No eye pain, No problem reported, No redness, No see HPI, No worsening of vision ENT: No hearing loss, No nasal symptoms, No sore throat, No tinnitus, No trouble swallowing, No unusual epistaxis Respiratory: No cough, No dyspnea at rest, No dyspnea on exertion, No hemoptysis, No shortness of breath, No sputum, No wheezing Cardiac: No chest pain, No claudication Abdomen: + pain, No GI bleeding, No constipation, No diarrhea, No nausea, No vomiting Musculoskeletal: No muscle pain Female : No dysuria, No hematuria, No urinary frequency Neurologic: No weakness Endo: No excessive urination, No fatigue Skin: + new/changing skin lesions Objective Vital Signs Date Time Temp Pulse Resp B/P Pulse Ox O2 Delivery O2 Flow Rate FiO2 06/09/16 08:00 93 Room Air 06/09/16 07:32 36.3 75 20 124/77 93 Room Air 06/09/16 00:01 Room Air 06/08/16 23:58 36.3 75 20 133/88 96 Room Air 06/08/16 20:01 Room Air 06/08/16 16:00 95 Room Air 06/08/16 15:34 36.8 75 18 129/79 95 Room Air 06/08/16 12:31 37.0 68 19 93 2.0 06/08/16 12:00 Room Air 06/08/16 11:57 37.0 68 19 119/78 93 Room Air Physical Exam General Appearance: WD/WN, + mild distress, + obese Neck: supple, no adenopathy, thyroid normal, no JVD, no carotid bruits Respiratory/Chest: chest non-tender, lungs clear, normal breath sounds, no respiratory distress, no accessory muscle use, + crackles Cardiovascular: regular rate, rhythm, no edema, no gallop, no JVD, no murmur Abdomen: normal bowel sounds, no organomegaly, no pulsatile mass, + tenderness Skin: normal color Laboratory Results Last 24 Hours Test 06/08/16 13:00 06/09/16 06:22 Activated Partial Thromboplast Time 60.1 SECONDS 87.4 SECONDS Partial Thromboplastin Ratio 2.3 3.4 Prothrombin Time 11.0 SECONDS Prothromb Time International Ratio 1.0 Medications Patient was given medication for her diarrhea last night. She was also started on Coumadin yesterday. Assessment and Plan Problems Diarrhea Fistula of intestine, excluding rectum and anus Multiple pulmonary emboli Partial small bowel obstruction Assessment and Plan: 1. Pulmonary Embolism--continue with Heparin and Coumadin. Monitor INR and switch to Coumadin. 2. Small Bowel obstruction--continue with Heparin and Coumadin. Monitor INR and switch to Coumadin. 3. 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 Continued [facility] stay due to: multiple IV medications needed, other (Labs need to be monitored)
[2016-06-09 14:36] LABS: PARTIAL THROMBOPLASTIN RATIO 2.6
--- NOTE | 2016-06-09 16:09 | Progress Note ---
Subjective Date of Service: June 09, 2016. Subjective Pt evaluation today including: conversation w/ patient, physical exam, lab review, review of inpatient medication list Pain: less pain today PO Intake: adequate Voiding: no voiding problems patient doing well, eating well, moving bowels concerned about mucous in throat, difficult time coughing it up and she is getting a little obsessed with it Problem List Medical Problems: (1) Diarrhea Status: Acute (2) Fistula of intestine, excluding rectum and anus Status: Acute (3) Multiple pulmonary emboli Status: Acute (4) Partial small bowel obstruction Status: Acute (5) Rectal bleed Status: Acute (6) RLQ abdominal pain Status: Acute (7) Small bowel obstruction Status: Acute (8) Small bowel obstruction Status: Acute (9) 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 Review of Systems Respiratory: + cough Abdomen: + diarrhea (last night, resolved) Skin: + problem reported (bruising) All Other Systems: Reviewed and Negative Medications Current Inpatient Medications Medications (Trade) Dose Ordered Sig/Rachael Route Start Time Stop Time Status Last Admin Dose Admin Ioversol (Optiray 320) 125 ml UD PRN IV 06/07/16 13:15 06/11/16 13:14 Aspirin (Ecotrin Tab) 81 mg QAM PO 06/08/16 09:00 07/08/16 08:59 06/09/16 07:38 81 MG Glucose (Glucose 40% Gel) 15-30 GRAMS 15 GRAMS... UD PRN PO 06/07/16 18:15 07/07/16 18:14 Glucose (Glucose Chew Tab) 4-8 Tablets 4 Tabl... UD PRN PO 06/07/16 18:15 07/07/16 18:14 Dextrose (Dextrose 50% 50ML Syringe) 25-50ML OF 50% DW IV FOR... UD PRN IV 06/07/16 18:15 07/07/16 18:14 Glucagon (Glucagon Inj) 1 mg UD PRN SQ 06/07/16 18:15 07/07/16 18:14 Ciprofloxacin (Cipro Tab) 500 mg Q12 PO 06/07/16 21:00 06/14/16 21:30 06/09/16 07:38 500 MG Metronidazole (Flagyl Tab) 500 mg TID PO 06/07/16 21:00 06/14/16 21:30 06/09/16 13:29 500 MG Trazodone HCl (Desyrel Tab) 50 mg HS PRN PO 06/07/16 18:15 07/07/16 18:14 06/09/16 00:14 50 MG Cyanocobalamin (Vitamin B-12 Tab) 1,000 mcg DAILY PO 06/08/16 09:00 07/08/16 08:59 06/09/16 07:38 1,000 MCG Ferrous Sulfate (Feosol Tab) 325 mg DAILY PO 06/08/16 09:00 07/08/16 08:59 06/09/16 07:38 325 MG Pantoprazole Sodium (Protonix Tab) 40 mg QAM PO 06/08/16 09:00 07/08/16 08:59 06/09/16 07:38 40 MG Lactobacillus Acidophilus (Floranex Tab) 1 tab DAILY PO 06/08/16 09:00 07/08/16 08:59 06/09/16 07:38 1 TAB Morphine Sulfate 4 mg 4 mg Q3H PRN IV 06/07/16 18:15 06/21/16 18:14 06/09/16 01:15 4 MG Heparin Sodium/ Dextrose (Heparin 25,000 Unit/500ml D5W) 500 ml @ 27 mls/hr [id number] PRN IV 06/07/16 20:30 07/07/16 20:29 06/09/16 01:14 30 MLS/HR Nicotine (Nicoderm Cq 7 Mg Patch) 1 patch QAM TD 06/08/16 09:00 07/08/16 08:59 06/09/16 07:38 1 PATCH Miscellaneous (Remove Nicoderm Patch) 1 ea HS N/A 06/08/16 21:00 07/08/16 20:59 Ioversol (Optiray 320) 100 ml UD PRN IV 06/08/16 10:00 06/12/16 09:59 Hydromorphone HCl (Dilaudid Inj) 0.5 mg Q3H PRN IV 06/08/16 12:15 06/22/16 12:14 Warfarin Sodium (Coumadin Tab) 5 mg DAILY@16 PO 06/09/16 16:00 07/09/16 15:59 Guaifenesin (Mucinex Contr Rel Tab) 1,200 mg BID PO 06/09/16 21:00 6/1/17 20:59 Albuterol/ Ipratropium (Duoneb) 3 ml Q4R PRN INH 06/09/16 15:00 07/09/16 14:59 Objective Vital Signs Date Time Temp Pulse Resp B/P Pulse Ox O2 Delivery O2 Flow Rate FiO2 06/09/16 15:33 36.7 78 20 107/67 91 Room Air 06/09/16 08:00 93 Room Air 06/09/16 07:32 36.3 75 20 124/77 93 Room Air 06/09/16 00:01 Room Air 06/08/16 23:58 36.3 75 20 133/88 96 Room Air 06/08/16 20:01 Room Air Physical Exam General Appearance: no apparent distress, + obese Eyes: normal inspection, EOMI, sclerae normal ENT: normal ENT inspection, hearing grossly normal, pharynx normal Neck: supple, no adenopathy, no JVD, trachea midline Respiratory/Chest: chest non-tender, lungs clear, normal breath sounds, no respiratory distress, no accessory muscle use Cardiovascular: regular rate, rhythm, no edema, no gallop, no JVD, no murmur Abdomen: normal bowel sounds, non tender, soft, no organomegaly Extremities: normal range of motion, non-tender, normal inspection, no pedal edema, no calf tenderness 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 Pulmonary emboli: lower lobes, no dyspnea or hypoxia CT chest - bilateral PE, no saddle embolism or clots in main pulmonary arteries dopplers negative would likely be considered provoked since she has been hospitalized multiple times in past months heparin gtt, start Coumadin 10mg yesterday, 5mg today, INR again tomorrow plan for Coumadin on d/c with Lovenox bridge 2. Abdominal pain, Crohn's disease with recent flare secondary to Crohn's disease, less inflammation on current CT continue Cipro/Flagyl until 06/14 will need to follow with Case 3. Cough: no mucous production, will try Mucinex and nebulizers, flutter valve to break up secretions Continued [facility] stay due to: multiple IV medications needed, other (Labs need to be monitored)
[2016-06-09] MEDS: WARFARIN SOD 5 MG TAB PO SCH (16:13)
[2016-06-09] MEDS: ALBUT/IPRATROP 3MG/0.5MG NEB 3 ML VIAL INH PRN (19:59)
[2016-06-10] VITALS (7 sets, daily range): BP systolic 105–124; BP diastolic 68–71; PULSE 76–95; TEMP 36.6–36.9; O2SAT 90–97
[2016-06-10] MEDS: ALBUT/IPRATROP 3MG/0.5MG NEB 3 ML VIAL INH PRN ×2 (06:01→14:46)
[2016-06-10 07:22] LABS: MEAN CELL VOLUME 92.5 fL (80-100); MEAN CORPUSCULAR HEMOGLOBIN 30.6 pg (25-34); MEAN CORPUSCULAR HGB CONC 33.1 g/dl (32-36); MEAN PLATELET VOLUME 9.3 fL (7.4-10.4); PLATELET COUNT 224 K/uL (130-400); RED BLOOD COUNT 4.54 M/uL (4.2-5.4); WHITE BLOOD COUNT 7.38 K/uL (4.8-10.8)
[2016-06-10 07:40] LABS: INR 1.3 (0.9-1.1); PARTIAL THROMBOPLASTIN RATIO 2.5; PROTHROMBIN TIME (PATIENT) 14.2 SECONDS (9.0-12.0)
[2016-06-10] MEDS: CIPROFLOXACIN 500 MG TAB PO SCH ×2 (08:41→21:47)
[2016-06-10] MEDS: ASPIRIN 81 MG ECTAB PO SCH (08:41)
[2016-06-10] MEDS: CYANOCOBALAMIN 500 MCG TAB (VIT B-12) PO SCH (08:42)
[2016-06-10] MEDS: PANTOprazole SOD 40 MG TAB PO SCH (08:42)
[2016-06-10] MEDS: FERROUS SULFATE 325 MG TAB PO SCH (08:42)
[2016-06-10] MEDS: LACTOBACILLUS ACIDOPHILUS (FLORANEX) TAB PO SCH (08:42)
[2016-06-10] MEDS: GUAIFENESIN 600 MG TABCR PO SCH ×2 (08:42→21:46)
[2016-06-10] MEDS: METRONIDAZOLE 500 MG TAB PO SCH ×3 (08:42→21:46)
[2016-06-10] MEDS: NICOTINE 7 MG/24 HR TDSY TD SCH (08:45)
--- NOTE | 2016-06-10 09:12 | Medical Student: [facility] ---
Med Student Progress Note Date of Service June 10, 2016. Subjective Pt evaluation today including: conversation w/ patient, physical exam, chart review Pain: Not much pain on R abdomen side but notices new L sided pain PO Intake: Normal Voiding: no voiding problems, no incontinence Ms. Freeman is progressing normally. She did complain of feeling bloated and gassy all through the night. She believes the breathing treatment is working ( she has done it twice), but reports some blood in her sputum this morning. After 2 times of bloody/pinkish mucous, the mucous is now yellow. She states that she still feels like there is some phlegm stuck in her throat making it hard to swallow and she feels like she will choke. She is concerned that this has to do with her endoscopy from 2 months ago.Patient also complains of pain on the left side of her abdomen, but the normal right sided pain has subsided. She is still suffering from headaches. Review of Systems Constitutional: No chills, No fatigue, No fever, No weakness Eyes: No diplopia, No discharge, No eye pain, No redness, No worsening of vision ENT: + trouble swallowing (due to the feeling of phelgm being stuck in the throat), No hearing loss, No nasal symptoms, No tinnitus Respiratory: + hemoptysis (Just a little bit this morning), + sputum, No cough , No dyspnea at rest, No dyspnea on exertion, No shortness of breath, No wheezing Cardiac: No chest pain, No edema, No orthopnea, No palpitations Abdomen: + pain (Left sided abdominal pain), No GI bleeding, No constipation, No diarrhea, No nausea, No vomiting Musculoskeletal: No joint pain, No muscle pain, No swelling Female : No dysuria, No hematuria, No incontinence, No urinary frequency Neurologic: No numbness/tingling, No weakness Endo: No excessive urination, No fatigue Skin: + problem reported (Bruising from the Coumadin + Heparin) Objective Vital Signs Date Time Temp Pulse Resp B/P Pulse Ox O2 Delivery O2 Flow Rate FiO2 06/10/16 07:18 36.6 78 18 105/68 90 Room Air 06/10/16 06:01 76 16 95 Room Air 06/10/16 00:00 91 Room Air 06/09/16 23:59 37.1 80 18 126/72 92 Room Air 06/09/16 20:00 91 Room Air 06/09/16 19:59 75 16 91 Room Air 06/09/16 16:00 91 Room Air 06/09/16 15:33 36.7 78 20 107/67 91 Room Air Physical Exam General Appearance: WD/WN, no apparent distress ENT: normal ENT inspection, hearing grossly normal Neck: no adenopathy, thyroid normal, no JVD Respiratory/Chest: chest non-tender, normal breath sounds, no respiratory distress, no accessory muscle use, + wheezing (Slight wheezing heard on the left side) Cardiovascular: regular rate, rhythm, no edema, no gallop, no JVD, no murmur Abdomen: normal bowel sounds, soft, no organomegaly, no pulsatile mass, + tenderness Extremities: no pedal edema, no calf tenderness Neurologic/Psychiatric: alert, normal mood/affect, oriented x 3 Skin: normal color, no rash, + pertinent finding (Bruising from anticoagulation ) Lymphatic: no adenopathy Laboratory Results Last 24 Hours Test 06/09/16 14:09 06/10/16 06:48 Activated Partial Thromboplast Time 68.2 SECONDS 64.1 SECONDS Partial Thromboplastin Ratio 2.6 2.5 White Blood Count 7.38 K/uL Red Blood Count 4.54 M/uL Hemoglobin 13.9 g/dL Hematocrit 42.0 % Mean Corpuscular Volume 92.5 fL Mean Corpuscular Hemoglobin 30.6 pg Mean Corpuscular Hemoglobin Concent 33.1 g/dl RDW Standard Deviation 50.5 fL RDW Coefficient of Variation 14.8 % Platelet Count 224 K/uL Mean Platelet Volume 9.3 fL Prothrombin Time 14.2 SECONDS Prothromb Time International Ratio 1.3 Medications Medications Administered Medications (Trade) Dose Ordered Sig/Rachael Route Start Time Stop Time Status Last Admin Dose Admin Morphine Sulfate (MoRPHine SULFATE INJ) 4 mg ONE STAT IV 06/07/16 12:08 06/07/16 12:10 DC 06/07/16 12:59 4 MG Ondansetron HCl (Zofran Inj) 4 mg NOW STAT IV 06/07/16 12:08 06/07/16 12:10 DC 06/07/16 12:57 4 MG Morphine Sulfate (MoRPHine SULFATE INJ) 4 mg NOW STAT IV 06/07/16 13:33 06/07/16 13:34 DC 06/07/16 13:57 4 MG Hydromorphone HCl (Dilaudid Inj) 0.5 mg NOW STAT IV 06/07/16 14:34 06/07/16 14:35 DC 06/07/16 14:38 0.5 MG Hydromorphone HCl (Dilaudid Inj) 0.5 mg NOW STAT IV 06/07/16 15:40 06/07/16 15:42 DC 06/07/16 16:03 0.5 MG Heparin Sodium/ Dextrose (Heparin 25,000 Unit/500ml D5W) 25,000 unit STK-MED ONCE .ROUTE 06/07/16 15:58 06/07/16 15:59 DC 06/07/16 16:07 25,000 UNIT Aspirin (Ecotrin Tab) 81 mg QAM PO 06/08/16 09:00 07/08/16 08:59 06/10/16 08:41 81 MG Ciprofloxacin (Cipro Tab) 500 mg Q12 PO 06/07/16 21:00 06/14/16 21:30 06/10/16 08:41 500 MG Metronidazole (Flagyl Tab) 500 mg TID PO 06/07/16 21:00 06/14/16 21:30 06/10/16 08:42 500 MG Trazodone HCl (Desyrel Tab) 50 mg HS PRN PO 06/07/16 18:15 07/07/16 18:14 06/09/16 21:12 50 MG Cyanocobalamin (Vitamin B-12 Tab) 1,000 mcg DAILY PO 06/08/16 09:00 07/08/16 08:59 06/10/16 08:42 1,000 MCG Ferrous Sulfate (Feosol Tab) 325 mg DAILY PO 06/08/16 09:00 07/08/16 08:59 06/10/16 08:42 325 MG Pantoprazole Sodium (Protonix Tab) 40 mg QAM PO 06/08/16 09:00 07/08/16 08:59 06/10/16 08:42 40 MG Lactobacillus Acidophilus (Floranex Tab) 1 tab DAILY PO 06/08/16 09:00 07/08/16 08:59 06/10/16 08:42 1 TAB Prednisone (PredniSONE TAB) 15 mg DAILY ONCE PO 06/08/16 09:00 5/1/17 09:01 DC 06/08/16 08:03 15 MG Morphine Sulfate (MoRPHine SULFATE INJ) 4 mg Q3H PRN IV 06/07/16 18:15 06/21/16 18:14 06/09/16 01:15 4 MG Hydromorphone HCl 0.5 mg 0.5 mg Q3H PRN IV 06/07/16 18:15 06/08/16 12:13 DC 06/08/16 07:58 0.5 MG Heparin Sodium/ Dextrose (Heparin 25,000 Unit/500ml D5W) 500 ml @ 27 mls/hr [id number] PRN IV 06/07/16 20:30 07/07/16 20:29 06/09/16 19:16 27 MLS/HR Hydromorphone HCl 1 mg 1 mg ONE ONCE IV 06/07/16 21:00 06/07/16 21:08 DC 06/07/16 21:13 1 MG Heparin Sodium (Porcine)/Syringe (Heparin Iv Bolus/Syringe) 3 ml @ 10 mls/min NOW ONCE IV 06/07/16 23:45 06/07/16 23:46 DC 06/07/16 23:45 10 MLS/MIN Menthol (Nice Melissa) 24 melissa STK-MED ONCE .ROUTE 06/08/16 02:14 06/08/16 02:15 DC 06/08/16 02:26 24 MELISSA Nicotine (Nicoderm Cq 7 Mg Patch) 1 patch QAM TD 06/08/16 09:00 07/08/16 08:59 06/10/16 08:45 1 PATCH Warfarin Sodium (Coumadin Tab) 10 mg DAILY@16 PO 06/08/16 16:00 06/08/16 16:01 DC 06/08/16 17:09 10 MG Guaifenesin (Mucinex Contr Rel Tab) 600 mg BID PO 06/08/16 21:00 06/09/16 14:56 DC 06/09/16 07:38 600 MG Cholestyramine Resin (Questran Powder Light) 4 gm NOW STAT PO 06/08/16 21:34 06/08/16 21:35 DC 06/08/16 22:36 4 GM Warfarin Sodium (Coumadin Tab) 5 mg DAILY@16 PO 06/09/16 16:00 07/09/16 15:59 06/09/16 16:13 5 MG Guaifenesin (Mucinex Contr Rel Tab) 1,200 mg BID PO 06/09/16 21:00 07/09/16 20:59 06/10/16 08:42 1,200 MG Albuterol/ Ipratropium (Duoneb) 3 ml Q4R PRN INH 06/09/16 15:00 07/09/16 14:59 06/10/16 06:01 3 ML Assessment and Plan Problems Fistula of intestine, excluding rectum and anus Multiple pulmonary emboli Partial small bowel obstruction Assessment and Plan: 1. Multiple pulmonary emboli--continue anticoagulation 2. partial small bowel obstruction--continue anticoagulation 3. Fistula of intestine--continue pain management Continued [facility] stay due to: multiple IV medications needed, other (Labs need to be monitored)
[2016-06-10] MEDS ORDERED: ACETAMINOPHEN 325 MG TAB PO PRN (11:15)
[2016-06-10] MEDS: HEPARIN 25,000 UNIT/500ML D5W 500 ML IV PRN (13:31)
--- NOTE | 2016-06-10 14:04 | Progress Note ---
Subjective Date of Service: June 10, 2016. Subjective Pt evaluation today including: conversation w/ patient, physical exam, lab review, review of inpatient medication list Pain: no severe pain today PO Intake: adequate Voiding: no voiding problems cough is better today slight pink tinge once in sputum, told her not to worry eating well, moving bowels, no nausea no chest pain or dyspnea Problem List Medical Problems: (1) Diarrhea Status: Acute (2) Fistula of intestine, excluding rectum and anus Status: Acute (3) Multiple pulmonary emboli Status: Acute (4) Partial small bowel obstruction Status: Acute (5) Rectal bleed Status: Acute (6) RLQ abdominal pain Status: Acute (7) Small bowel obstruction Status: Acute (8) Small bowel obstruction Status: Acute (9) 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 UD PRN PO 06/07/16 18:15 07/07/16 18:14 Glucose (Glucose Chew Tab) 4-8 Tablets 4 Tabl... UD PRN PO 06/07/16 18:15 07/07/16 18:14 Dextrose (Dextrose 50% 50ML Syringe) 25-50ML OF 50% DW IV FOR... UD PRN IV 06/07/16 18:15 07/07/16 18:14 Glucagon (Glucagon Inj) 1 mg UD PRN SQ 06/07/16 18:15 07/07/16 18:14 Ciprofloxacin (Cipro Tab) 500 mg Q12 PO 06/07/16 21:00 06/14/16 21:30 06/10/16 08:41 500 MG Metronidazole (Flagyl Tab) 500 mg TID PO 06/07/16 21:00 06/14/16 21:30 06/10/16 13:30 500 MG Trazodone HCl (Desyrel Tab) 50 mg HS PRN PO 06/07/16 18:15 07/07/16 18:14 06/09/16 21:12 50 MG Cyanocobalamin (Vitamin B-12 Tab) 1,000 mcg DAILY PO 06/08/16 09:00 07/08/16 08:59 06/10/16 08:42 1,000 MCG Ferrous Sulfate (Feosol Tab) 325 mg DAILY PO 06/08/16 09:00 07/08/16 08:59 06/10/16 08:42 325 MG Pantoprazole Sodium (Protonix Tab) 40 mg QAM PO 06/08/16 09:00 07/08/16 08:59 06/10/16 08:42 40 MG Lactobacillus Acidophilus (Floranex Tab) 1 tab DAILY PO 06/08/16 09:00 07/08/16 08:59 06/10/16 08:42 1 TAB Morphine Sulfate 4 mg 4 mg Q3H PRN IV 06/07/16 18:15 06/21/16 18:14 06/09/16 01:15 4 MG Heparin Sodium/ Dextrose (Heparin 25,000 Unit/500ml D5W) 500 ml @ 27 mls/hr [id number] PRN IV 06/07/16 20:30 07/07/16 20:29 06/10/16 13:31 27 MLS/HR Nicotine (Nicoderm Cq 7 Mg Patch) 1 patch QAM TD 06/08/16 09:00 07/08/16 08:59 06/10/16 08:45 1 PATCH Miscellaneous (Remove Nicoderm Patch) 1 ea HS N/A 06/08/16 21:00 07/08/16 20:59 Ioversol (Optiray 320) 100 ml UD PRN IV 06/08/16 10:00 06/12/16 09:59 Hydromorphone HCl (Dilaudid Inj) 0.5 mg Q3H PRN IV 06/08/16 12:15 06/22/16 12:14 Warfarin Sodium (Coumadin Tab) 5 mg DAILY@16 PO 06/09/16 16:00 07/09/16 15:59 06/09/16 16:13 5 MG Guaifenesin (Mucinex Contr Rel Tab) 1,200 mg BID PO 06/09/16 21:00 07/09/16 20:59 06/10/16 08:42 1,200 MG Albuterol/ Ipratropium (Duoneb) 3 ml Q4R PRN INH 06/09/16 15:00 07/09/16 14:59 06/10/16 06:01 3 ML Acetaminophen (Tylenol Tab) 650 mg Q4H PRN PO 06/10/16 11:15 07/10/16 11:14 Objective Vital Signs Date Time Temp Pulse Resp B/P Pulse Ox O2 Delivery O2 Flow Rate FiO2 06/10/16 09:58 Room Air 06/10/16 07:18 36.6 78 18 105/68 90 Room Air 06/10/16 06:01 76 16 95 Room Air 06/10/16 00:00 91 Room Air 06/09/16 23:59 37.1 80 18 126/72 92 Room Air 06/09/16 20:00 91 Room Air 06/09/16 19:59 75 16 91 Room Air 06/09/16 16:00 91 Room Air 06/09/16 15:33 36.7 78 20 107/67 91 Room Air Physical Exam General Appearance: no apparent distress, + obese Neck: supple, no adenopathy, no JVD, trachea midline Respiratory/Chest: chest non-tender, lungs clear, normal breath sounds, no respiratory distress, no accessory muscle use Cardiovascular: regular rate, rhythm, no edema, no gallop, no JVD, no murmur Abdomen: normal bowel sounds, non tender, soft, no organomegaly Extremities: normal range of motion, non-tender, normal inspection, no pedal edema, no calf tenderness Neurologic/Psychiatric: identifier horse II-XII nml as tested, no motor/sensory deficits, alert, normal mood/affect, oriented x 3 Skin: normal color, warm/dry, no rash Laboratory Results Last 24 Hours Test 06/09/16 14:09 06/10/16 06:48 Activated Partial Thromboplast Time 68.2 SECONDS 64.1 SECONDS Partial Thromboplastin Ratio 2.6 2.5 White Blood Count 7.38 K/uL Red Blood Count 4.54 M/uL Hemoglobin 13.9 g/dL Hematocrit 42.0 % Mean Corpuscular Volume 92.5 fL Mean Corpuscular Hemoglobin 30.6 pg Mean Corpuscular Hemoglobin Concent 33.1 g/dl RDW Standard Deviation 50.5 fL RDW Coefficient of Variation 14.8 % Platelet Count 224 K/uL Mean Platelet Volume 9.3 fL Prothrombin Time 14.2 SECONDS Prothromb Time International Ratio 1.3 Assessment and Plan 61 yo female with h/o Crohn's disease, presented with right flank pain, found to have lower lobe PE on CT of the abdomen/pelvis, admitted and started on heparin gtt 1. Pulmonary emboli: lower lobes, no dyspnea or hypoxia CT chest - bilateral PE, no saddle embolism or clots in main pulmonary arteries dopplers negative would likely be considered provoked since she has been hospitalized multiple times in past months heparin gtt, INR 1.3 today, hopeful for therapeutic level tomorrow plan for Coumadin on d/c with Lovenox bridge 2. Abdominal pain, Crohn's disease with recent flare secondary to Crohn's disease, less inflammation on current CT continue Cipro/Flagyl until 06/14 resume Prednisone 15mg daily on prior taper will need to follow with Dr. Desir to discuss biologics 3. Cough: no mucous production, will try Mucinex and nebulizers, flutter valve to break up secretions improved today, continue above therapy Continued [facility] stay due to: multiple IV medications needed, other (Labs need to be monitored)
[2016-06-10] MEDS: WARFARIN SOD 5 MG TAB PO SCH (15:51)
[2016-06-10] MEDS ORDERED: NURSING VERBAL MED ORDER ONE (18:30)
[2016-06-10] MEDS ORDERED: ONDANSETRON INJ 2 MG/ML 2 ML VIAL IV PRN (18:45)
[2016-06-10] MEDS: TRAZODONE HCL 50 MG TAB PO PRN (21:49)
[2016-06-11] VITALS (8 sets, daily range): BP systolic 109–130; BP diastolic 62–77; PULSE 75–95; TEMP 36.5–36.8; O2SAT 94–98
[2016-06-11 07:44] LABS: INR 1.6 (0.9-1.1); PARTIAL THROMBOPLASTIN RATIO 3.1; PROTHROMBIN TIME (PATIENT) 17.8 SECONDS (9.0-12.0)
[2016-06-11] MEDS: CIPROFLOXACIN 500 MG TAB PO SCH ×2 (08:41→21:24)
[2016-06-11] MEDS: LACTOBACILLUS ACIDOPHILUS (FLORANEX) TAB PO SCH (08:42)
[2016-06-11] MEDS: METRONIDAZOLE 500 MG TAB PO SCH ×3 (08:42→21:25)
[2016-06-11] MEDS: ASPIRIN 81 MG ECTAB PO SCH (08:42)
[2016-06-11] MEDS: FERROUS SULFATE 325 MG TAB PO SCH (08:42)
[2016-06-11] MEDS: CYANOCOBALAMIN 500 MCG TAB (VIT B-12) PO SCH (08:43)
[2016-06-11] MEDS: GUAIFENESIN 600 MG TABCR PO SCH ×2 (08:43→21:25)
[2016-06-11] MEDS: PANTOprazole SOD 40 MG TAB PO SCH (08:43)
[2016-06-11] MEDS: NICOTINE 7 MG/24 HR TDSY TD SCH (08:44)
[2016-06-11] MEDS: HEPARIN 25,000 UNIT/500ML D5W 500 ML IV PRN (08:48)
--- NOTE | 2016-06-11 11:28 | Progress Note ---
Subjective Date of Service: June 11, 2016. Subjective Pt evaluation today including: conversation w/ patient, physical exam, lab review, review of inpatient medication list Pain: RLQ pain, mild, intermittent PO Intake: adequate Voiding: no voiding problems patient c/o RLQ pain, not severe, she is worried about her Crohn's, told her we can check x-ray discussed going home on Lovenox, she cannot get a ride today, son working in [employer] until 8pm plan to go home tomorrow, she is agreeable Problem List Medical Problems: (1) Diarrhea Status: Acute (2) Fistula of intestine, excluding rectum and anus Status: Acute (3) Multiple pulmonary emboli Status: Acute (4) Partial small bowel obstruction Status: Acute (5) Rectal bleed Status: Acute (6) RLQ abdominal pain Status: Acute (7) Small bowel obstruction Status: Acute (8) Small bowel obstruction Status: Acute (9) 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 UD PRN PO 06/07/16 18:15 07/07/16 18:14 Glucose (Glucose Chew Tab) 4-8 Tablets 4 Tabl... UD PRN PO 06/07/16 18:15 07/07/16 18:14 Dextrose (Dextrose 50% 50ML Syringe) 25-50ML OF 50% DW IV FOR... UD PRN IV 06/07/16 18:15 07/07/16 18:14 Glucagon (Glucagon Inj) 1 mg UD PRN SQ 06/07/16 18:15 07/07/16 18:14 Ciprofloxacin (Cipro Tab) 500 mg Q12 PO 06/07/16 21:00 06/14/16 21:30 06/11/16 08:41 500 MG Metronidazole (Flagyl Tab) 500 mg TID PO 06/07/16 21:00 06/14/16 21:30 06/11/16 08:42 500 MG Trazodone HCl (Desyrel Tab) 50 mg HS PRN PO 06/07/16 18:15 07/07/16 18:14 06/10/16 21:49 50 MG Cyanocobalamin (Vitamin B-12 Tab) 1,000 mcg DAILY PO 06/08/16 09:00 07/08/16 08:59 06/11/16 08:43 1,000 MCG Ferrous Sulfate (Feosol Tab) 325 mg DAILY PO 06/08/16 09:00 07/08/16 08:59 06/11/16 08:42 325 MG Pantoprazole Sodium (Protonix Tab) 40 mg QAM PO 06/08/16 09:00 07/08/16 08:59 06/11/16 08:43 40 MG Lactobacillus Acidophilus (Floranex Tab) 1 tab DAILY PO 06/08/16 09:00 07/08/16 08:59 06/11/16 08:42 1 TAB Morphine Sulfate 4 mg 4 mg Q3H PRN IV 06/07/16 18:15 06/21/16 18:14 06/09/16 01:15 4 MG Heparin Sodium/ Dextrose (Heparin 25,000 Unit/500ml D5W) 500 ml @ 24 mls/hr [id number] PRN IV 06/07/16 20:30 07/07/16 20:29 06/11/16 08:48 27 MLS/HR Nicotine (Nicoderm Cq 7 Mg Patch) 1 patch QAM TD 06/08/16 09:00 07/08/16 08:59 06/11/16 08:44 1 PATCH Miscellaneous (Remove Nicoderm Patch) 1 ea HS N/A 06/08/16 21:00 07/08/16 20:59 Ioversol (Optiray 320) 100 ml UD PRN IV 06/08/16 10:00 06/12/16 09:59 Hydromorphone HCl (Dilaudid Inj) 0.5 mg Q3H PRN IV 06/08/16 12:15 06/22/16 12:14 Warfarin Sodium (Coumadin Tab) 5 mg DAILY@16 PO 06/09/16 16:00 07/09/16 15:59 06/10/16 15:51 5 MG Guaifenesin (Mucinex Contr Rel Tab) 1,200 mg BID PO 06/09/16 21:00 07/09/16 20:59 06/11/16 08:43 1,200 MG Albuterol/ Ipratropium (Duoneb) 3 ml Q4R PRN INH 06/09/16 15:00 07/09/16 14:59 06/10/16 14:46 3 ML Acetaminophen (Tylenol Tab) 650 mg Q4H PRN PO 06/10/16 11:15 07/10/16 11:14 06/10/16 21:45 650 MG Prednisone (PredniSONE TAB) 15 mg DAILY PO 06/11/16 09:00 07/11/16 08:59 06/11/16 08:43 15 MG Ondansetron HCl (Zofran Inj) 4 mg Q4H PRN IV 06/10/16 18:45 07/10/16 18:44 06/10/16 18:43 4 MG Objective Vital Signs Date Time Temp Pulse Resp B/P Pulse Ox O2 Delivery O2 Flow Rate FiO2 06/11/16 09:23 Room Air 06/11/16 07:13 36.7 75 18 118/77 96 Room Air 06/11/16 00:00 96 Room Air 06/10/16 23:06 36.9 85 18 112/71 96 Room Air 06/10/16 16:00 96 Room Air 06/10/16 15:51 36.7 89 18 124/71 96 Room Air 06/10/16 14:46 95 16 97 Room Air Physical Exam General Appearance: no apparent distress, + obese Eyes: normal inspection, EOMI, sclerae normal ENT: normal ENT inspection, hearing grossly normal, pharynx normal Neck: supple, no adenopathy, no JVD, trachea midline Respiratory/Chest: chest non-tender, lungs clear, normal breath sounds, no respiratory distress, no accessory muscle use Cardiovascular: regular rate, rhythm, no edema, no gallop, no JVD, no murmur Abdomen: normal bowel sounds, soft, no organomegaly, + tenderness (RLQ, mild, soft, no rebound or rigidity) Extremities: normal range of motion, non-tender, normal inspection, no pedal edema, no calf tenderness Neurologic/Psychiatric: information technology advisor II-XII nml as tested, no motor/sensory deficits, alert, normal mood/affect, oriented x 3 Skin: normal color, warm/dry, no rash Laboratory Results Last 24 Hours Test 06/11/16 07:00 Prothrombin Time 17.8 SECONDS Prothromb Time International Ratio 1.6 Activated Partial Thromboplast Time 80.7 SECONDS Partial Thromboplastin Ratio 3.1 Assessment and Plan 61 yo female with h/o Crohn's disease, presented with right flank pain, found to have lower lobe PE on CT of the abdomen/pelvis, admitted and started on heparin gtt 1. Pulmonary emboli: lower lobes, no dyspnea or hypoxia CT chest - bilateral PE, no saddle embolism or clots in main pulmonary arteries dopplers negative would likely be considered provoked since she has been hospitalized multiple times in past months heparin gtt still but stop tonight, INR 1.6 today, hopeful for therapeutic level tomorrow plan for Coumadin on d/c with Lovenox bridge transition to Lovenox tonight at 2100, stop heparin at 1999 2. Abdominal pain, Crohn's disease with recent flare secondary to Crohn's disease, less inflammation on current CT continue Cipro/Flagyl until 06/14 resume Prednisone 15mg daily on prior taper will need to follow with Dr. Desir to discuss biologics check x-ray due to RLQ today 3. Cough: no mucous production, will try Mucinex and nebulizers, flutter valve to break up secretions improved today, continue above therapy plan for d/c tomorrow on Lovenox and Coumadin, home nursing set up Continued [facility] stay due to: multiple IV medications needed, other (Labs need to be monitored)
--- NOTE | 2016-06-11 11:57 | DIAGNOSTIC IMAGING REPORT ---
PA CHEST WITH ABDOMINAL SERIES CLINICAL HISTORY: Generalized abdominal pain. FINDINGS: A PA chest radiograph is compared to study dated 06/07/2016 and correlated with chest CT dated 06/08/2016. The cardiomediastinal silhouette is unremarkable. There is atherosclerotic calcification of the thoracic aorta. Chronic additional thickening is similar to previous. Mild bibasilar atelectasis is observed. No airspace consolidation, large pleural effusion, or pneumothorax is seen. The skeletal structures are osteopenic. Degenerative change is noted in the thoracic spine. Bony thorax is grossly intact. Supine and erect abdominal radiographs are correlated with abdominal CT dated 06/07/2016. There are distended and gas-filled loops of small bowel. Scattered air-fluid levels are seen on the upright view. The appearance is consistent with a small bowel obstruction. No intraperitoneal free air is seen. There are no abnormal abdominal calcifications. There is moderate lumbar spondylosis and scoliosis. The bony pelvis appears intact. IMPRESSION: 1. No active disease in the chest. 2. Findings are consistent with a small bowel obstruction. 3. No intraperitoneal free air is seen. Electronically signed by: Frank Cortez M.D. 06/11/2016 11:55 AM Dictated Date/Time: 06/11/2016 11:49 AM
[2016-06-11] MEDS ORDERED: NURSING VERBAL MED ORDER ONE (14:00)
[2016-06-11] MEDS ORDERED: LOVENOX TEACHING KIT SCH (14:00)
[2016-06-11] MEDS: ALBUT/IPRATROP 3MG/0.5MG NEB 3 ML VIAL INH PRN ×2 (14:12→21:45)
[2016-06-11] MEDS: WARFARIN SOD 5 MG TAB PO SCH (15:56)
[2016-06-11 16:18] LABS: PARTIAL THROMBOPLASTIN RATIO 2.1
[2016-06-11] MEDS: ENOXAPARIN 120 MG/0.8 ML SYR SQ SCH (21:26)
[2016-06-11] MEDS: TRAZODONE HCL 50 MG TAB PO PRN (23:04)
[2016-06-12 06:49] LABS: HEMATOCRIT 40.3 % (37-47); MEAN CELL VOLUME 93.7 fL (80-100); MEAN CORPUSCULAR HEMOGLOBIN 30.2 pg (25-34); MEAN CORPUSCULAR HGB CONC 32.3 g/dl (32-36); MEAN PLATELET VOLUME 9.3 fL (7.4-10.4); PLATELET COUNT 228 K/uL (130-400); WHITE BLOOD COUNT 6.25 K/uL (4.8-10.8)
[2016-06-12 06:57] LABS: PARTIAL THROMBOPLASTIN RATIO 1.6
[2016-06-12 08:00] VITALS: BP 110/71; PULSE 73; TEMP 36.6; O2SAT 96
--- NOTE | 2016-06-12 08:30 | Medical Student: [facility] ---
Med Student Progress Note Date of Service June 12, 2016. Subjective Pt evaluation today including: conversation w/ patient, physical exam, chart review Pain: No pain today PO Intake: Normal Voiding: no voiding problems, no incontinence Patient reports no pain today and feels a lot better. She has pressure in her sinuses but it not concerned about it. She is blowing out mucus when she blows her nose and thinks there still might be blood in it. She states that the phlegm in her throat has been getting better and she has no problems sleeping or breathing. She had a bowel movement, denies n/v, or any abdominal pain today. Review of Systems Constitutional: No chills, No fatigue, No fever, No problem reported, No see HPI, No sweats, No weakness, No weight loss Eyes: No diplopia, No discharge, No eye pain, No problem reported, No redness, No see HPI, No worsening of vision ENT: No dental problems, No hearing loss, No nasal symptoms, No sore throat, No tinnitus, No trouble swallowing Respiratory: No cough, No dyspnea at rest, No dyspnea on exertion, No shortness of breath, No sputum, No wheezing Cardiac: No PND, No chest pain, No edema, No orthopnea Abdomen: No GI bleeding, No constipation, No diarrhea, No nausea, No pain, No vomiting Female : No dysuria, No urinary frequency Objective Vital Signs Date Time Temp Pulse Resp B/P Pulse Ox O2 Delivery O2 Flow Rate FiO2 06/12/16 08:00 36.6 73 17 110/71 96 Room Air 06/12/16 00:00 Room Air 06/11/16 23:47 36.5 81 20 117/76 95 Room Air 06/11/16 23:13 36.6 93 18 124/77 95 Room Air 06/11/16 21:45 81 16 97 Nasal Cannula 2.0 06/11/16 16:00 Room Air 06/11/16 15:04 36.8 83 16 130/75 95 Room Air 06/11/16 14:57 36.8 77 22 109/62 94 Nasal Cannula 2.0 06/11/16 14:12 95 16 98 Nasal Cannula 2.0 06/11/16 09:23 Room Air Physical Exam General Appearance: WD/WN, no apparent distress ENT: normal ENT inspection Neck: supple, no adenopathy, thyroid normal Respiratory/Chest: chest non-tender, lungs clear, normal breath sounds, no respiratory distress, no accessory muscle use Cardiovascular: regular rate, rhythm, no edema, no gallop, no JVD, no murmur Abdomen: normal bowel sounds, non tender, soft, no organomegaly, no pulsatile mass Skin: normal color, warm/dry, no rash Lymphatic: no adenopathy Laboratory Results Last 24 Hours Test 06/11/16 15:25 06/12/16 06:26 Activated Partial Thromboplast Time 54.1 SECONDS 41.6 SECONDS Partial Thromboplastin Ratio 2.1 1.6 White Blood Count 6.25 K/uL Red Blood Count 4.30 M/uL Hemoglobin 13.0 g/dL Hematocrit 40.3 % Mean Corpuscular Volume 93.7 fL Mean Corpuscular Hemoglobin 30.2 pg Mean Corpuscular Hemoglobin Concent 32.3 g/dl RDW Standard Deviation 52.0 fL RDW Coefficient of Variation 15.2 % Platelet Count 228 K/uL Mean Platelet Volume 9.3 fL Medications Medications (Trade) Dose Ordered Sig/Rachael Route Start Time Stop Time Status Last Admin Dose Admin Prednisone (PredniSONE TAB) 15 mg DAILY PO 06/11/16 09:00 07/11/16 08:59 06/11/16 08:43 15 MG Enoxaparin Sodium (Lovenox Inj) 120 mg Q12 SQ 06/11/16 21:00 07/11/16 20:59 06/11/16 21:26 120 MG Miscellaneous (Stop Order) 1 ea 2000 ONCE N/A 06/11/16 20:00 06/11/16 20:01 DC 06/11/16 20:01 1 EA Assessment and Plan Problems Multiple pulmonary emboli Assessment and Plan: 1. Pulmonary Emboli-continue patient on Lovenox and Coumadin. She has been given education on Lovenox injection administration and can do this from home. Continued [facility] stay due to: other Discharge planning: home
[2016-06-12] MEDS: PANTOprazole SOD 40 MG TAB PO SCH (08:32)
[2016-06-12] MEDS: LACTOBACILLUS ACIDOPHILUS (FLORANEX) TAB PO SCH (08:32)
[2016-06-12] MEDS: CIPROFLOXACIN 500 MG TAB PO SCH (08:32)
[2016-06-12] MEDS: FERROUS SULFATE 325 MG TAB PO SCH (08:33)
[2016-06-12] MEDS: ASPIRIN 81 MG ECTAB PO SCH (08:33)
[2016-06-12] MEDS: METRONIDAZOLE 500 MG TAB PO SCH (08:33)
[2016-06-12] MEDS: GUAIFENESIN 600 MG TABCR PO SCH (08:33)
[2016-06-12] MEDS: CYANOCOBALAMIN 500 MCG TAB (VIT B-12) PO SCH (08:33)
[2016-06-12] MEDS: ENOXAPARIN 120 MG/0.8 ML SYR SQ SCH (08:34)
[2016-06-12] MEDS: NICOTINE 7 MG/24 HR TDSY TD SCH (08:35)
[2016-06-12 09:06] LABS: INR 1.8 (0.9-1.1); PROTHROMBIN TIME (PATIENT) 20.2 SECONDS (9.0-12.0)
[2016-06-12] MEDS ORDERED: CMD5 PO (10:25)
[2016-06-12] MEDS ORDERED: LVNIS120 SQ (10:25)
--- NOTE | 2016-06-12 10:50 | Discharge Instructions ---
Discharge Instructions Date of Service June 12, 2016. Admission Reason for Admission: Pulmonary Emboli, Ruq Abdominal Pain Discharge Discharge Diagnosis / Problem: (1) Pulmonary emboli VTE Date & Time Date of VTE Diagnosis: Jun 07, 2016 Time of VTE Diagnosis: 12:00 Discharge Goals Goal(s): Improve function, Improve disease control Activity Recommendations Activity Limitations: resume your previous activity Lifting Limitations: none . Instructions / Follow-Up Instructions / Follow-Up Medications: - LOVENOX: inject twice a day for 4 days and then stop - COUMADIN: take 5mg daily, home nursing will draw INR on Wednesday with results to your PCP and then you can follow his instructions for dosing - PREDNISONE: start 10mg daily tomorrow and continue this dose until you see Dr. Desir Pulmonary emboli: again, feel this was provoked by recent hospitalizations and perhaps you are more prone to clots given your Crohn's disease will need 6 months of Coumadin therapy and then your PCP can determine if you can safely discontinue FOLLOW UP - PCP next Monday 06/19 - Dr Desir, placed a referral to be seen in 1-2 weeks, expect a phone call, if you don't hear from them Wednesday morning then call to inquire, [phone] Medication Instructions: * Warfarin is a medicine prescribed to prevent blood clots * Warfarin will thin your blood and help prevent new clots * Take your medications exactly as directed * Never skip a dose. Never take a double dose. If you miss a dose, take it as soon as you remember * It is important for your doctor to monitor your prothrombin time (PT). This is a lab test * Keep your appointment for lab tests Risk of Adverse Drug Reactions and Interactions: * Warfarin increases your risk of bleeding * The food you eat and other medications you take can affect how Warfarin works in your body * Ask your doctor about daily aspirin therapy * It is very important to talk with your doctor about all of the other medicines , antibiotics, vitamins or herbal products that you are taking * All of your medication must be approved by your doctor, including new medicines, as well as medicines you have taken before you started taking Warfarin Diet: * In order for Warfarin to work properly, it is important to keep your intake of Vitamin K as consistent as possible * You should avoid any sudden change in Vitamin K intake * Report any significant changes in your diet or weight to your doctor Call your Primary Care doctor if you experience any of the following: * Swelling or Pain in your leg * Sudden, continuous pain deep in a muscle * Pain that worsens when you are active or when you stand still for a long time * Chest Pain * Sudden Shortness of Breath * Rapid or pounding heart beat * Fainting * Dizziness * Cough with blood or bloody sputum * Sweating more than normal * Bruises * Heavy or uncontrolled bleeding * Blood in your urine, stool or vomit * Black or tarry stools Caring for Your Self at Home: * Avoid sitting, standing or lying down for long periods without moving your legs and feet * When traveling by car, stop to get out and move around at least once every 3 hours * On long airplane, train or bus rides, get up and move around when possible * If you can't get up, wiggle your toes and tighten your calves to keep your blood moving Follow Up: It is important for you to keep your follow up appointments with your medical provider. Current Hospital Diet Patient's current hospital diet: Regular Diet Discharge Diet Recommended Diet: Regular Diet Pending Studies Studies pending at discharge: no Laboratory Results Hemoglobin A1c Test 05/10/16 06:24 Range/Units Estimated Average Glucose 123 mg/dl Hemoglobin A1c 5.9 H 4.5-5.6 % Medical Emergencies . Who to Call and When: Medical Emergencies: If at any time you feel your situation is an emergency, please call 911 immediately. . Non-Emergent Contact Non-Emergency issues call your: Primary Care Provider Call Non-Emergent contact if: you have any medication questions . . "Provider Documentation" section prepared by Juan Francisco Mason. . VTE Core Measure Inpt VTE Proph given/why not?: Enoxaparin (Lovenox)SQ Reason no anticoag overlap I/P: Treatment provided - N/A Reason no anticoag overlap @DC: Treatment provided - N/A [place] Drug Monitoring Program Search Results: no issues identified
[2016-06-12 10:59] VITALS: BP 110/71; PULSE 73; TEMP 36.6; O2SAT 96
--- NOTE | 2016-06-12 15:25 | Discharge Summary ---
Discharge Summary Date of Service June 12, 2016. Discharge Summary Admission Date: Jun 07, 2016 at 18:09 Discharge Date: June 12, 2016 Discharge Disposition: Home with services Principal Diagnosis: Bilateral pulmonary emboli Problems/Secondary Diagnoses: Crohn's disease Procedures: none Consultations: none Medication Reconciliation New Medications: Enoxaparin (Lovenox) 120 Mg/0.8 Ml Inj 120 MG SQ Q12, #8 DOSE 0 Refills Warfarin Sod (Coumadin) 5 Mg Tab 5 MG PO DAILY@16, #30 TAB 3 Refills Continued Medications: Aspirin (Aspirin Ec) 81 Mg Tab 81 MG PO DAILY Cyanocobalamin (Vitamin B12) 1,000 Mcg Tab 1000 MCG PO DAILY Ferrous Sulfate (Iron) 325 Mg Tab 325 MG PO DAILY Methylcellulose (Laxative) (Citrucel) 500 Mg Tab 500 MG PO TID Omeprazole (Ra Omeprazole) 20 Mg Tab 20 MG PO QAM Prednisone (Prednisone) 5 Mg Tab 5 MG PO UD, #165 TAB 8 tablets per day x one week, decrease by 1 tablet every week until complete Probiotic Product (Digestive Advantage Probi) 1 Chw Chw 1 CAP PO DAILY Trazodone Hcl (Trazodone) 50 Mg Tab 50 MG PO HS, TAB Discontinued Medications: Ciprofloxacin (Ciprofloxacin HCl) 500 Mg Tab 500 MG PO Q12 Fluconazole (Diflucan) 150 Mg Tab 150 MG PO DIRECTED, TAB TAKE WHEN FINISHED WITH ANTIBIOTICS Metronidazole (Flagyl) 500 Mg Tab 500 MG PO TID, TAB Discharge Exam Patient feeling well today, ready to go home. No issues overnight. She reports no abdominal pain, no nausea or vomiting, she is moving her bowels. Discussed findings on abdominal x-ray and how that does not fit with her symptoms or exam, she is soft, non-distended, active bowel sounds and moving her bowels. Likely some dilated small bowels due to ileitis that has been present for months intermittently. Discussed GI follow up with referral to [facility] Review of Systems: Constitutional: No chills, No fatigue, No fever, No problem reported, No sweats, No weakness, No weight loss Eyes: No diplopia, No discharge, No eye pain, No problem reported, No redness, No worsening of vision ENT: No dental problems, No hearing loss, No nasal symptoms, No problem reported, No sore throat, No tinnitus, No trouble swallowing, No unusual epistaxis Respiratory: No cough, No dyspnea at rest, No dyspnea on exertion, No hemoptysis, No problem reported, No shortness of breath, No sputum, No wheezing Cardiovascular: No PND, No chest pain, No claudication, No edema, No orthopnea, No palpitations, No problem reported Abdomen: No GI bleeding, No constipation, No diarrhea, No nausea, No pain, No problem reported, No vomiting Musculoskeletal: No calf pain, No joint pain, No muscle pain, No problem reported, No swelling Genitourinary - Female: No dysuria, No urinary frequency, No urinary incontinence, No urinary urgency Neurologic: No balance problems, No memory loss, No numbness/tingling, No paralysis, No problem reported, No vertigo, No weakness Psychiatric: No anhedonism, No anxiety, No depression symptoms, No insomnia , No problem reported, No substance abuse Endocrine: No excessive thirst, No excessive urination, No fatigue, No problem reported Hematologic / Lymphatic: No abnormal bleeding/bruising, No clotting problems , No night sweats, No problem reported, No swollen lymph nodes Integumentary: No bleeding, No color change, No itch, No new/changing skin lesions, No problem reported, No rash Physical Exam: General Appearance: no apparent distress, + obese Eyes: normal inspection, EOMI, sclerae normal ENT: normal ENT inspection, hearing grossly normal, pharynx normal Neck: supple, no adenopathy, no JVD, trachea midline Respiratory/Chest: chest non-tender, lungs clear, normal breath sounds, no respiratory distress, no accessory muscle use Cardiovascular: regular rate, rhythm, no edema, no gallop, no JVD, no murmur , normal peripheral pulses Abdomen / GI: normal bowel sounds, non tender, soft, no organomegaly Extremities: normal inspection, no calf tenderness, normal capillary refill , no pedal edema, normal range of motion Neurologic/Psychiatric: side sawyer II-XII nml as tested, no motor/sensory deficits , alert, normal mood/affect, normal reflexes, oriented x 3 Skin: normal color, warm/dry, no rash Lymphatic: no adenopathy Hospital Course 61 yo female with h/o Crohn's disease, presented with right flank pain, found to have lower lobe PE on CT of the abdomen/pelvis, admitted and started on heparin gtt 1. Pulmonary emboli: lower lobes, no dyspnea or hypoxia CT chest - bilateral PE, no saddle embolism or clots in main pulmonary arteries dopplers negative would likely be considered provoked since she has been hospitalized multiple times in past months heparin gtt initially, changed to Lovenox and Coumadin started INR 1.8 today d/c on Lovenox BID x 4 more days and Coumadin 5mg daily home nursing for blood draws and will send INR to [facility] on Wednesday 2. Abdominal pain, Crohn's disease with recent flare secondary to Crohn's disease, less inflammation on CT at time of admission continue Cipro/Flagyl until 06/11, completed, no further antibiotics needed, 30 days total resume Prednisone 15mg daily, can decrease to 10mg daily on d/c will need to follow with Dr. Desir to discuss biologics check x-ray due to RLQ pain - reported as SBO, however, looking at prior films, she always has some small bowel dilation likely due to ileitis no signs or symptoms of SBO, eating well, moving bowels 3. Cough: no mucous production, will try Mucinex and nebulizers, flutter valve to break up secretions resolved, no further treatment needed Total Time Spent: Greater than 30 minutes This includes examination of the patient, discharge planning, medication reconciliation, and communication with other providers. Discharge Instructions Please refer to the electronic Patient Visit Report (Discharge Instructions) for additional information. Follow-Up [facility] next Wednesday referral to [facility] in 1-2 weeks Additional Copies To [facility] PA-C
[2016-07-17] MEDS ORDERED: WARF4TAB PO (11:08)
[2016-07-17] MEDS ORDERED: CLC100 PO (11:08)
[2016-07-17] MEDS ORDERED: PRT40 PO (11:08)
[2016-07-17] MEDS ORDERED: ULT50X PO (11:08)
[2016-07-17] MEDS ORDERED: PRED10TA PO (11:08)
[2016-07-17] MEDS ORDERED: NICO14DI9 TD (11:08)
[2016-07-17] MEDS ORDERED: VTMD1000 PO (11:08)
[2016-07-17] MEDS ORDERED: ADAL40KI SQ (11:13)
[2016-08-18] MEDS ORDERED: LVNIS120 SQ (11:43)
[2016-08-18] MEDS ORDERED: CMD75 PO (11:43)
[2016-08-18] MEDS ORDERED: MRLP17X PO (11:52)
[2016-08-18] MEDS ORDERED: PRD10 PO (11:52)
[2016-11-17] MEDS ORDERED: ZYR10 PO (12:37)
[2016-11-17] MEDS ORDERED: NICO14DI5 TD (12:37)
== END 2016-06-12 11:56 | disposition home or self-care (01) | DRG 176 ==
LOC: ENRESERVTM → ENRESERVDT → C.EDB 11:34 → C.2T 18:09 → C.MS2W 06-08 12:37
PROVIDERS: ADMIT Internal Medicine; ATTEND Internal Medicine
DX: I26.99 Other pulmonary embolism without acute cor pulmonale (principal); K50.90 Crohn's disease, unspecified, without complications; K56.60 Unspecified intestinal obstruction; F17.200 Nicotine dependence, unspecified, uncomplicated; R05 Cough; Z79.82 Long term (current) use of aspirin

== ENCOUNTER 2016-06-14 17:32 | Emergency (ER) | payer OTHER ==
[~2016-06-14] VITALS: Ht 167.6 cm; Wt 113.0 kg
[~2016-06-14 17:32] MED LIST changes: +CMD5 PO; +LVNIS120 SQ; +OMEP20TA74 PO; +PROB1CHW9 PO; +TRAZ50TA35 PO
[2016-06-14 17:47] VITALS: TEMP 36.9; Ht 167.6 cm; Wt 113.0 kg
[2016-06-14] MEDS ORDERED: HYDROCODONE/ACETAMINOPHEN 7.5/325MG TAB PO STA (18:23)
[2016-06-14 18:44] LABS: BASO % 0.3 %; BASO ABS # 0.02 K/uL (0-0.2); COMPLETE YES; EOS % 0.6 %; HEMATOCRIT 43.4 % (37-47); IG% 4.1 %; LYMPH ABS # 1.75 K/uL (1.2-3.4); MEAN CELL VOLUME 93.1 fL (80-100); MEAN CORPUSCULAR HGB CONC 34.3 g/dl (32-36); MEAN PLATELET VOLUME 9.3 fL (7.4-10.4); MONO % 5.4 %; NEUT % 64.6 %; PLATELET COUNT 251 K/uL (130-400); RED BLOOD COUNT 4.66 M/uL (4.2-5.4); WHITE BLOOD COUNT 7.01 K/uL (4.8-10.8)
--- NOTE | 2016-06-14 18:47 | EMERGENCY ROOM VISIT NOTE ---
History Report prepared by Chon: Isabella Hickey Under the Supervision of: Dr. Nona Fernandes M.D. First contact with patient: 18:07 Chief Complaint: NOSE BLEED (MINOR) Stated Complaint: NOSE BLEED History of Present Illness The patient is a 61 year old female who presents to the Emergency Room with complaints of a resolved nose bleed which occurred today. She presents to the ED by EMS. She has recently started Coumadin and Lovenox for PEs last week. She is concerned about the bleeding. She had 2 nosebleeds which were 5 minutes apart. She was not blowing her nose when the nosebleed started. She reports bright red blood with small clots. She was told by EMS to apply pressure to her nose bridge which resolved her nose bleed. She has not had any bleeding since. She also complains of a headache. Upon arrival to the ED, she has started experiencing pain under her right breast. She has chronic abdominal pain from Crohn's disease. She is trying to cut down on smoking Source of History: patient Onset: today Position: nose Quality: other (bleed) Timing: resolved Associated Symptoms: + abdominal pain, + headache Review of Systems See HPI for pertinent positives & negatives. A total of 10 systems reviewed and were otherwise negative. Past Medical & Surgical Medical Problems: (1) Bowel obstruction (2) Cellulitis (3) Crohn's disease involving terminal ileum (4) Crohns disease (5) Pulmonary emboli (6) Rectal bleeding (7) RUQ abdominal pain (8) SBO (small bowel obstruction) Family History Patient reports no known family medical history. Social History Smoking Status: Current Every Day Smoker Drug Use: none Marital Status: Housing Status: lives alone Occupation Status: unemployed Current/Historical Medications Scheduled Aspirin (Aspirin Ec), 81 MG PO DAILY Cyanocobalamin (Vitamin B12), 1,000 MCG PO DAILY Enoxaparin (Lovenox), 120 MG SQ Q12 Ferrous Sulfate (Iron), 325 MG PO DAILY Methylcellulose (Laxative) (Citrucel), 500 MG PO BID Omeprazole (Ra Omeprazole), 20 MG PO QAM Prednisone (Prednisone), 5 MG PO UD Probiotic Product (Digestive Advantage Probi), 1 CAP PO DAILY Warfarin Sod (Coumadin), 5 MG PO DAILY@16 Scheduled PRN Trazodone Hcl (Trazodone), 50 MG PO HS PRN for Sleep Allergies Coded Allergies: No Known Allergies (Unverified , 06/14/16) Physical Exam Vital Signs Date Time Temp Pulse Resp B/P Pulse Ox O2 Delivery O2 Flow Rate FiO2 06/14/16 19:12 91 20 142/75 96 Room Air 06/14/16 17:57 94 06/14/16 17:47 36.9 110 20 162/90 97 Room Air Physical Exam Vital signs reviewed. General: Well-appearing, obese, smells like cigarettes, in no significant distress. HEENT: No scleral icterus, PERRLA, neck supple. Atraumatic. Cardiovascular: Regular rate and rhythm, no extra sounds. Pulmonary: Clear to auscultation bilaterally, normal work of breathing. Abdomen: Soft, nontender, nondistended, positive bowel sounds. Musculoskeletal: Atraumatic, no peripheral edema. Neurologic: Patient awake alert and oriented x 3, full strength in all 4 extremities. Cranial nerves 2 through 12 grossly intact. Skin: Warm, dry, no rash Medical Decision & Procedures Laboratory Results 06/14/16 18:36 Red Blood Count 4.66, Mean Corpuscular Volume 93.1, Mean Corpuscular Hemoglobin 32.0, Mean Corpuscular Hemoglobin Concent 34.3, Mean Platelet Volume 9.3, Neutrophils (%) (Auto) 64.6, Lymphocytes (%) (Auto) 25.0, Monocytes (%) (Auto) 5.4, Eosinophils (%) (Auto) 0.6, Basophils (%) (Auto) 0.3, Neutrophils # (Auto) 4.53, Lymphocytes # (Auto) 1.75, Monocytes # (Auto) 0.38, Eosinophils # (Auto) 0.04, Basophils # (Auto) 0.02 06/14/16 18:36 Test 06/14/16 18:36 White Blood Count 7.01 K/uL (4.8-10.8) Red Blood Count 4.66 M/uL (4.2-5.4) Hemoglobin 14.9 g/dL (12.0-16.0) Hematocrit 43.4 % (37-47) Mean Corpuscular Volume 93.1 fL (80-100) Mean Corpuscular Hemoglobin 32.0 pg (25-34) Mean Corpuscular Hemoglobin Concent 34.3 g/dl (32-36) Platelet Count 251 K/uL (130-400) Mean Platelet Volume 9.3 fL (7.4-10.4) Neutrophils (%) (Auto) 64.6 % Lymphocytes (%) (Auto) 25.0 % Monocytes (%) (Auto) 5.4 % Eosinophils (%) (Auto) 0.6 % Basophils (%) (Auto) 0.3 % Neutrophils # (Auto) 4.53 K/uL (1.4-6.5) Lymphocytes # (Auto) 1.75 K/uL (1.2-3.4) Monocytes # (Auto) 0.38 K/uL (0.11-0.59) Eosinophils # (Auto) 0.04 K/uL (0-0.5) Basophils # (Auto) 0.02 K/uL (0-0.2) RDW Standard Deviation 51.2 fL (36.4-46.3) RDW Coefficient of Variation 15.1 % (11.5-14.5) Immature Granulocyte % (Auto) 4.1 % Immature Granulocyte # (Auto) 0.29 K/uL (0.00-0.02) Prothrombin Time 24.4 SECONDS (9.0-12.0) Prothromb Time International Ratio 2.2 (0.9-1.1) Activated Partial Thromboplast Time 41.6 SECONDS (21.0-31.0) Partial Thromboplastin Ratio 1.6 Anion Gap 8.0 mmol/L (3-11) Est Creatinine Clear Calc Drug Dose 93.0 ml/min Estimated GFR () 91.6 Estimated GFR (Non- 79.0 BUN/Creatinine Ratio 14.3 (10-20) Calcium Level 9.2 mg/dl (8.5-10.1) Total Bilirubin 0.2 mg/dl (0.2-1) Direct Bilirubin < 0.1 mg/dl (0-0.2) Aspartate Amino Transf (AST/SGOT) 27 U/L (15-37) Alanine Aminotransferase (ALT/SGPT) 41 U/L (12-78) Alkaline Phosphatase 55 U/L (45-117) Total Protein 6.6 gm/dl (6.4-8.2) Albumin 3.1 gm/dl (3.4-5.0) Laboratory results per my review. Medications Administered Medications (Trade) Dose Ordered Sig/Rachael Route Start Time Stop Time Status Last Admin Dose Admin Acetaminophen/ Hydrocodone Bitart ([place] 7.5/325 Tab) 1 tab NOW STAT PO 06/14/16 18:23 06/14/16 18:24 DC 06/14/16 19:14 1 TAB ED Course 1820: Past medical records reviewed. The patient was evaluated in room C6. A complete history and physical examination was performed. 1822: Acetaminophen/Hydrocodone Bitart 1 tab PO. 1915: Upon reevaluation, the patient appeared to have improvement of her symptoms. I discussed findings with her. She verbalized agreement of the treatment plan. She was discharged home. Medical Decision Differential diagnosis: supratherapeutic INR, nasal ulceration, nasopharyngeal mass, sinusitis, pleurisy, ACS, pneumonia, exacerbation of Crohn's, bowel obstruction. This patient was evaluated and appeared to be in no significant distress. There is no epistaxis on exam. The patient was given a [place] tablet for headache pain. Patient's INR is 2.2. She is continuing her Lovenox injections. Patient has complains of various pains including "Crohn's pain"and a mild headache. The patient is felt stable for discharge. I do not suspect an acute intracranial hemorrhage or acute abdominal process. Her bleeding has subsided. The patient was discharged with epistaxis instructions. She will follow-up with her physician this week and return to the ER for worsening of symptoms or any medical concerns. Impression Primary Impression: Epistaxis Scribe Attestation The scribe's documentation has been prepared under my direction and personally reviewed by me in its entirety. I confirm that the note above accurately reflects all work, treatment, procedures, and medical decision making performed by me. Departure Information Dispostion Home / Self-Care Referrals [facility] PA-C (PCP) Forms HOME CARE DOCUMENTATION FORM, IMPORTANT VISIT INFORMATION, WORK / SCHOOL INSTRUCTIONS Patient Instructions My [facility] Additional Instructions Diagnosis: Epistaxis Continue coumadin as prescribed. Avoid scratching, rubbing, picking, or blowing your nose. The matrix drier tender your nasal passages the more likely they are to bleed. The following two products are available late-szl-pukzean at most drug stores/pharmacies: [place] nasal spray or similar generic saline spray to keep the nose moist 3 to 4 times a day or Apply [place] gel 2-3 times daily to the nostrils to keep them moist. If bleeding recurs apply direct pressure for an uninterrupted 20 minutes. You may use several sprays of Afrin nasal spray in the bleeding nostril. On and off pressure is much less effective because it will disturb the clots that are forming. If the bleeding is still a problem after 20 minutes or is so heavy despite the pressure return to the emergency department. Follow-up with your primary care physician in 2 to 3 days for a recheck of your current condition if problems persist.
[2016-06-14 18:54] LABS: INR 2.2 (0.9-1.1); PARTIAL THROMBOPLASTIN RATIO 1.6; PROTHROMBIN TIME (PATIENT) 24.4 SECONDS (9.0-12.0)
[2016-06-14 19:03] LABS: ALT/SGPT 41 U/L (12-78); BLOOD UREA NITROGEN 11 mg/dl (7-18); BUN/CREATININE RATIO 14.3 (10-20); CALCIUM 9.2 mg/dl (8.5-10.1); CARBON DIOXIDE 27 mmol/L (21-32); CHLORIDE 108 mmol/L (98-107); GLUCOSE 87 mg/dl (70-99); POTASSIUM 4.3 mmol/L (3.5-5.1); SODIUM 143 mmol/L (136-145)
[2016-06-14 19:09] LABS: ALKALINE PHOSPHATASE 55 U/L (45-117); AST/SGOT 27 U/L (15-37)
[2016-06-14 19:12] VITALS: BP 142/75; PULSE 91; O2SAT 96
[2016-06-24] MEDS ORDERED: CMD/25 PO (12:35)
[2016-07-17] MEDS ORDERED: PRED10TA PO (11:08)
[2016-07-17] MEDS ORDERED: PRT40 PO (11:08)
[2016-07-17] MEDS ORDERED: ULT50X PO (11:08)
[2016-07-17] MEDS ORDERED: VTMD1000 PO (11:08)
[2016-07-17] MEDS ORDERED: CLC100 PO (11:08)
[2016-07-17] MEDS ORDERED: WARF4TAB PO (11:08)
[2016-07-17] MEDS ORDERED: NICO14DI9 TD (11:08)
[2016-07-17] MEDS ORDERED: ADAL40KI SQ (11:13)
[2016-08-18] MEDS ORDERED: CMD75 PO (11:43)
[2016-08-18] MEDS ORDERED: LVNIS120 SQ (11:43)
[2016-08-18] MEDS ORDERED: PRD10 PO (11:52)
[2016-08-18] MEDS ORDERED: MRLP17X PO (11:52)
[2016-09-29] MEDS ORDERED: PRD5 PO (09:14)
[2016-11-17] MEDS ORDERED: NICO14DI5 TD (12:37)
[2016-11-17] MEDS ORDERED: ZYR10 PO (12:37)
== END 2016-06-14 19:30 | disposition home or self-care (01) ==
LOC: EDBD 17:32 → C.EDC 17:34
DX: R04.0 Epistaxis (principal); Z79.01 Long term (current) use of anticoagulants; Z86.711 Personal history of pulmonary embolism; K50.90 Crohn's disease, unspecified, without complications; F17.210 Nicotine dependence, cigarettes, uncomplicated; Z79.82 Long term (current) use of aspirin; Z79.899 Other long term (current) drug therapy; E66.9 Obesity, unspecified; Z68.41 Body mass index [BMI] 40.0-44.9, adult

== ENCOUNTER 2016-06-21 10:34 | Inpatient (IN) | payer OTHER ==
[~2016-06-21] VITALS: Ht 167.6 cm; Wt 117.4 kg
[2016-06-21] MEDS ORDERED: PROPARACAINE HCL 0.5% OP SOLN 15 ML BTL ONE (10:57)
[2016-06-21] MEDS ORDERED: ONDANSETRON INJ 2 MG/ML 2 ML VIAL IV STA (10:58)
[2016-06-21 11:11] LABS: BASO % 0.7 %; BASO ABS # 0.05 K/uL (0-0.2); EOS % 1.2 %; HEMATOCRIT 44.3 % (37-47); IG% 3.3 %; LYMPH % 24.1 %; LYMPH ABS # 1.85 K/uL (1.2-3.4); MEAN CELL VOLUME 92.1 fL (80-100); MEAN CORPUSCULAR HEMOGLOBIN 31.4 pg (25-34); MEAN CORPUSCULAR HGB CONC 34.1 g/dl (32-36); MEAN PLATELET VOLUME 9.1 fL (7.4-10.4); MONO % 8.1 %; NEUT % 62.6 %; PLATELET COUNT 296 K/uL (130-400); RED BLOOD COUNT 4.81 M/uL (4.2-5.4); WHITE BLOOD COUNT 7.67 K/uL (4.8-10.8)
[2016-06-21 11:21] LABS: INR 1.8 (0.9-1.1); PARTIAL THROMBOPLASTIN RATIO 1.3; PROTHROMBIN TIME (PATIENT) 19.5 SECONDS (9.0-12.0)
[2016-06-21 11:29] LABS: ALT/SGPT 29 U/L (12-78); AST/SGOT 14 U/L (15-37); BLOOD UREA NITROGEN 13 mg/dl (7-18); BUN/CREATININE RATIO 15.6 (10-20); CALCIUM 9.1 mg/dl (8.5-10.1); CARBON DIOXIDE 26 mmol/L (21-32); CHLORIDE 107 mmol/L (98-107); CREATININE 0.82 mg/dl (0.60-1.20); GLUCOSE 97 mg/dl (70-99); POTASSIUM 4.1 mmol/L (3.5-5.1); SODIUM 141 mmol/L (136-145)
--- NOTE | 2016-06-21 11:30 | DIAGNOSTIC IMAGING REPORT ---
CHEST ONE VIEW PORTABLE CLINICAL HISTORY: Chest pain. COMPARISON STUDY: Chest CT June 08, 2016 and chest radiograph June 11, 2016. FINDINGS: Lung volumes are normal. There is no pneumothorax or pleural effusion. Cardiac size is normal. Mediastinal contours are normal. There is no evidence of pulmonary edema. IMPRESSION: No acute cardiopulmonary findings. Electronically signed by: Teddy Burger M.D. 06/21/2016 11:29 AM Dictated Date/Time: 06/21/2016 11:27 AM
[2016-06-21] MEDS: MoRPHine SULFATE 4 MG/ML 1 ML CARP\\VIAL IV PRN ×3 (11:34→19:56)
[2016-06-21 11:35] LABS: ALKALINE PHOSPHATASE 57 U/L (45-117)
[2016-06-21 11:41] LABS: COMPLETE YES
--- NOTE | 2016-06-21 12:19 | DIAGNOSTIC IMAGING REPORT ---
CT OF THE ORBITS WITHOUT CONTRAST CT DOSE: 450.51 mGy.cm CLINICAL HISTORY: Severe right eye pain. Vision loss. Anticoagulation. Evaluate for retrobulbar hematoma. TECHNIQUE: Axial images of the orbits were obtained without IV contrast. Sagittal and coronal reconstructions were viewed. COMPARISON STUDY: None. FINDINGS: Mastoid air cells are clear. There is minimal mucosal thickening of the ethmoid sinuses. The globes are intact. There is no retrobulbar hematoma. No orbital mass is identified on this unenhanced exam. Extraocular muscles are symmetric and within normal limits by CT. Visualized portions of the intracranial contents are unremarkable on this unenhanced study. IMPRESSION: No significant abnormality of the orbits on unenhanced CT. No retrobulbar hematoma. Globes intact. Electronically signed by: Teddy Burger M.D. 06/21/2016 12:18 PM Dictated Date/Time: 06/21/2016 12:13 PM
[2016-06-21] MEDS ORDERED: METHYLPREDNISOLONE 1000 MG/16 ML IV STA (14:50)
[2016-06-21] MEDS ORDERED: methylPREDNISolone 1000 MG in DEXTROSE 5% 250 ML IV ONE (15:00)
[2016-06-21] MEDS ORDERED: ONDANSETRON INJ 2 MG/ML 2 ML VIAL IV PRN (15:30)
[2016-06-21] MEDS ORDERED: MAGNESIUM HYDROXIDE SUSP 30 ML UDC PO PRN (15:30)
[2016-06-21] MEDS ORDERED: PHARMACIST DISCHARGE MED REC CONSULT PRN (15:30)
[2016-06-21] MEDS ORDERED: ALUMINUM/MAGNESIUM/SIMETH (MAALOX MAX) 30 ML UDC PO PRN (15:30)
[2016-06-21] MEDS ORDERED: ZOLPIDEM TARTRATE 5 MG TAB PO PRN (15:30)
[2016-06-21] MEDS ORDERED: POLYETHYLENE (MIRALAX) 17 GM PACK PO PRN (15:30)
--- NOTE | 2016-06-21 15:57 | Progress Note ---
Progress Note Date of Service June 21, 2016. Progress Note right eye pain and decreased vision for 1 day, cva, or neuritis, cjeve flores mai, ED physician called to on [facility] neuro, agree mri, solumedrol iv daily for 3 days, right eye pain and decreased vision for 1 day [id number]
--- NOTE | 2016-06-21 16:46 | EMERGENCY ROOM VISIT NOTE ---
History Report prepared by Chon: Monik Booker Under the Supervision of: Dr. Keon Frey M.D. First contact with patient: 10:50 Chief Complaint: CARDIAC ASSESSMENT Stated Complaint: PAINS UNDER LEFT BREAST-RT EYE AND HARD TO BREATHE History of Present Illness The patient is a 61 year old female who presents to the Emergency Room with complaints of worsening chest pain starting this morning. She currently rates her pain as a 10/10 in severity. The patient reports that she is having some trouble breathing. She states that she has a history of blood clots in her lungs. She notes that she is on Coumadin for these and that home health told her that her INR was 2.3 three days ago. She states that besides the trouble breathing, her right eye is bothering her. She states that she can't open it well and it hurts to move it. She states she doesn't remember scratching it or bumping it and denies wearing contacts. She states that it is making her vision fuzzy. The patient notes a history of Crohn's disease. She complains of a small headache, some abdominal pain, and nausea. Pt denies LOC, headache, fevers, chills, diaphoresis, neck pain, vomiting, abdominal pain, back pain, melena, hematochezia, urinary symptoms, numbness, weakness, lymphadenopathy, rash, or other complaints. Source of History: patient Onset: this morning Position: chest Symptom Intensity: 10/10 Timing: worsening Associated Symptoms: + abdominal pain, + headache, + nausea Note: The patient complains of right eye pain and some visual changes. Review of Systems See HPI for pertinent positives and negatives. A total of ten systems were reviewed and were otherwise negative. Past Medical & Surgical Medical Problems: (1) Bowel obstruction (2) Cellulitis (3) Crohn's disease involving terminal ileum (4) Crohns disease (5) Pulmonary emboli (6) Rectal bleeding (7) right eye pain and decreased vision for 1 day (8) RUQ abdominal pain (9) SBO (small bowel obstruction) Family History Patient reports no known family medical history. Social History Smoking Status: Current Every Day Smoker Drug Use: none Marital Status: Housing Status: lives alone Occupation Status: unemployed Current/Historical Medications Scheduled Aspirin (Aspirin Ec), 81 MG PO DAILY Cyanocobalamin (Vitamin B12), 1,000 MCG PO DAILY Ferrous Sulfate (Iron), 325 MG PO DAILY Methylcellulose (Laxative) (Citrucel), 500 MG PO BID Omeprazole (Ra Omeprazole), 20 MG PO QAM Prednisone (Prednisone), 5 MG PO UD Probiotic Product (Digestive Advantage Probi), 1 CAP PO DAILY Warfarin Sod (Coumadin), 5 MG PO DAILY@16 Scheduled PRN Trazodone Hcl (Trazodone), 50 MG PO HS PRN for Sleep Allergies Coded Allergies: No Known Allergies (Unverified , 06/21/16) Physical Exam Vital Signs Date Time Temp Pulse Resp B/P Pulse Ox O2 Delivery O2 Flow Rate FiO2 06/21/16 15:05 73 18 159/92 96 Room Air 06/21/16 13:25 80 18 156/81 98 Room Air 06/21/16 12:18 83 18 135/75 92 Room Air 06/21/16 12:04 78 06/21/16 11:29 97 Room Air 06/21/16 11:16 97 Room Air 06/21/16 11:16 97 Room Air 06/21/16 10:36 36.7 97 20 176/86 97 Room Air Physical Exam GENERAL: Awake, alert, well-appearing, in no distress HENT: Normocephalic, atraumatic. Oropharynx unremarkable. EYES: Normal conjunctiva. Sclera non-icteric. NECK: Supple. No nuchal rigidity. FROM. No JVD. RESPIRATORY: Clear to auscultation. CARDIAC: Regular rate, normal rhythm. Extremities warm and well perfused. Pulses equal. ABDOMEN: Soft, non-distended. No tenderness to palpation. No rebound or guarding. No masses. RECTAL: Deferred. MUSCULOSKELETAL: Chest examination reveals no tenderness. The back is symmetrical on inspection without obvious abnormality. There is no CVA tenderness to palpation. No joint edema. LOWER EXTREMITIES: Calves are equal size bilaterally and non-tender. Trace edema. No discoloration. NEURO: Normal sensorium. No sensory or motor deficits noted. SKIN: No rash or jaundice noted. Medical Decision & Procedures ER Provider Diagnostic Interpretation: Radiology results as stated below per my review and radiologist interpretation: CHEST ONE VIEW PORTABLE CLINICAL HISTORY: Chest pain. COMPARISON STUDY: Chest CT June 08, 2016 and chest radiograph June 11, 2016. FINDINGS: Lung volumes are normal. There is no pneumothorax or pleural effusion. Cardiac size is normal. Mediastinal contours are normal. There is no evidence of pulmonary edema. IMPRESSION: No acute cardiopulmonary findings. Electronically signed by: Teddy Burger M.D. 06/21/2016 11:29 AM Dictated Date/Time: 06/21/2016 11:[address] OF THE ORBITS WITHOUT CONTRAST CT DOSE: 450.51 mGy.cm CLINICAL HISTORY: Severe right eye pain. Vision loss. Anticoagulation. Evaluate for retrobulbar hematoma. TECHNIQUE: Axial images of the orbits were obtained without IV contrast. Sagittal and coronal reconstructions were viewed. COMPARISON STUDY: None. FINDINGS: Mastoid air cells are clear. There is minimal mucosal thickening of the ethmoid sinuses. The globes are intact. There is no retrobulbar hematoma. No orbital mass is identified on this unenhanced exam. Extraocular muscles are symmetric and within normal limits by CT. Visualized portions of the intracranial contents are unremarkable on this unenhanced study. IMPRESSION: No significant abnormality of the orbits on unenhanced CT. No retrobulbar hematoma. Globes intact. Electronically signed by: Teddy Burger M.D. 06/21/2016 12:18 PM Dictated Date/Time: 06/21/2016 12:13 PM Laboratory Results 06/21/16 10:55 Red Blood Count 4.81, Mean Corpuscular Volume 92.1, Mean Corpuscular Hemoglobin 31.4, Mean Corpuscular Hemoglobin Concent 34.1, Mean Platelet Volume 9.1, Neutrophils (%) (Auto) 62.6, Lymphocytes (%) (Auto) 24.1, Monocytes (%) (Auto) 8.1, Eosinophils (%) (Auto) 1.2, Basophils (%) (Auto) 0.7, Neutrophils # (Auto) 4.81, Lymphocytes # (Auto) 1.85, Monocytes # (Auto) 0.62, Eosinophils # (Auto) 0.09, Basophils # (Auto) 0.05 06/21/16 10:55 Test 06/21/16 10:55 White Blood Count 7.67 K/uL (4.8-10.8) Red Blood Count 4.81 M/uL (4.2-5.4) Hemoglobin 15.1 g/dL (12.0-16.0) Hematocrit 44.3 % (37-47) Mean Corpuscular Volume 92.1 fL (80-100) Mean Corpuscular Hemoglobin 31.4 pg (25-34) Mean Corpuscular Hemoglobin Concent 34.1 g/dl (32-36) Platelet Count 296 K/uL (130-400) Mean Platelet Volume 9.1 fL (7.4-10.4) Neutrophils (%) (Auto) 62.6 % Lymphocytes (%) (Auto) 24.1 % Monocytes (%) (Auto) 8.1 % Eosinophils (%) (Auto) 1.2 % Basophils (%) (Auto) 0.7 % Neutrophils # (Auto) 4.81 K/uL (1.4-6.5) Lymphocytes # (Auto) 1.85 K/uL (1.2-3.4) Monocytes # (Auto) 0.62 K/uL (0.11-0.59) Eosinophils # (Auto) 0.09 K/uL (0-0.5) Basophils # (Auto) 0.05 K/uL (0-0.2) RDW Standard Deviation 51.1 fL (36.4-46.3) RDW Coefficient of Variation 15.0 % (11.5-14.5) Immature Granulocyte % (Auto) 3.3 % Immature Granulocyte # (Auto) 0.25 K/uL (0.00-0.02) Red Blood Cell Morphology Unremarkable Erythrocyte Sedimentation Rate 30 mm/hr (0-21) Prothrombin Time 19.5 SECONDS (9.0-12.0) Prothromb Time International Ratio 1.8 (0.9-1.1) Activated Partial Thromboplast Time 34.8 SECONDS (21.0-31.0) Partial Thromboplastin Ratio 1.3 Anion Gap 8.0 mmol/L (3-11) Estimated GFR () 88.9 Estimated GFR (Non- 76.7 BUN/Creatinine Ratio 15.6 (10-20) Calcium Level 9.1 mg/dl (8.5-10.1) Total Bilirubin 0.4 mg/dl (0.2-1) Direct Bilirubin < 0.1 mg/dl (0-0.2) Aspartate Amino Transf (AST/SGOT) 14 U/L (15-37) Alanine Aminotransferase (ALT/SGPT) 29 U/L (12-78) Alkaline Phosphatase 57 U/L (45-117) Total Creatine Kinase 26 U/L (26-192) Creatine Kinase MB < 0.5 ng/ml (0.5-3.6) Creatine Kinase MB Ratio (0-3.0) Troponin I < 0.015 ng/ml (0-0.045) C-Reactive Protein 0.55 mg/dl (0-0.29) Total Protein 7.0 gm/dl (6.4-8.2) Albumin 3.4 gm/dl (3.4-5.0) Lipase 169 U/L (73-393) Laboratory results reviewed by me Medications Administered Medications (Trade) Dose Ordered Sig/Rachael Route Start Time Stop Time Status Last Admin Dose Admin Proparacaine HCl (Alcaine 0.5% Oph Soln) 225 drops STK-MED ONCE .ROUTE 06/21/16 10:57 06/21/16 10:58 DC 06/21/16 11:12 225 DROPS Ondansetron HCl (Zofran Inj) 4 mg NOW STAT IV 06/21/16 10:58 06/21/16 11:00 DC 06/21/16 11:34 4 MG Morphine Sulfate 4 mg 4 mg Q15M PRN IV 06/21/16 11:00 07/05/16 10:59 06/21/16 13:22 4 MG Methylprednisolone Sodium Succinate/ Dextrose (Solu-Medrol IV/ D5 250ml) 266 ml @ 266 mls/hr NOW ONCE IV 06/21/16 15:00 06/21/16 15:59 DC 06/21/16 15:15 266 MLS/HR Procedure Slit Lamp Examination Indication:Eye pain The right eye was prepped with topical proparacaine. Slit lamp examination was performed in the standard fashion. Cornea appeared clear. Anterior chamber normal. Scleral injection present. No discharge present. Fluorescein examination performed and revealed no abnormalities or foreign bodies. No foreign bodies noted. Negative Anne sign. The patient tolerated the procedure well without complication. Left IOP 21 Right IOP 18.7 Fundi was normal ECG Indication: chest pain Rate (beats per minute): 88 Rhythm: normal sinus Findings: no acute ischemic change, no ectopy ED Course 1054: The patient was evaluated in room C3. A complete history and physical exam was performed. 1057: Ordered Proparacaine HCl 2 drops .ROUTE. 1058: Ordered Zofran Inj 4 mg IV. 1100: Ordered Morphine Sulfate 4 mg PRN IV pain. 1345: I reevaluated the patient and she is still having eye pain. I am going to consult Ophthalmology 1355: Discussed the patient's case with Dr. Guo. He is going to come evaluate the patient himself. 1425: I updated the patient on her results. Dr. Guo is currently with the patient now. 1426: I discussed the patient's case with Dr. Barnard. Dr. Barnard wants to hear what Ophthalmology has to say. 1440: I discussed the patient's case with Dr. Guo. He believes that the patient is developing optic neuritis. 1447: I updated Dr. Barnard on the findings from Dr. Guo and connected Dr. Barnard with Dr. Guo. We decided to bring in neurology and get their opinion on the patient's case. 1448: I discussed the case with Dr. Yepez and he agrees with the plan of an MRI. He would also like the patient to receive Solu-Medrol. 1452: I updated the patient on her future treatment plans. She verbalized agreement and understanding. I updated Dr. Barnard on the patient's case. The patient will be evaluated for further treatment. 1500: Ordered Methylprednisolone Sodium Succinate 1000 mg/Dextrose 266 ml @ 266 mls/hr IV. Medical Decision Triage Nursing notes reviewed. The patient's presentation and history were concerning for chest and eye pain. Etiologies such as pleurisy, pulmonary embolism, pneumonia, pneumothorax, aortic dissection, cardiac ischemia,musculoskeletal, infections, gastrointestinal, glaucoma, retrobulbar hemorrhage, corneal abrasion, conjunctivitis, infection as well as others were entertained. The patient was evaluated. I examination did not reveal any abnormalities except for some minimal scleral injection. No evidence of glaucoma. The patient had a normal limited funduscopic examination without pupil dilation. She was given morphine and Zofran for symptom control. Chest imaging, blood work and CT imaging of the orbits was performed. The labs were unremarkable except for a slightly subtherapeutic INR. The Orbit CT was unremarkable. She received IV morphine x 2 is still feeling the discomfort. Ophthalmology was consulted as was internal medicine. The concern was for possible Optic neuritis and substernal chest pain with recent PE's. Neurology was also consulted. The patient was given 1 g of Solu-Medrol per neurology's request. She was updated. The patient was admitted for further treatment. The patient was informed about the findings as listed above. All questions were answered and she was pleased with the treatment. The chart was completed utilizing [employer]ey[employer] Speech voice recognition software. Grammatical errors, random word insertions, pronoun errors, and incomplete sentences are an occasional consequence of this system due to software limitations, ambient noise, and hardware issues. Any formal questions or concerns about the content, text, or information contained within the body of this dictation should be directly addressed to the physician for clarification. Consults Time Called: 1347 Consulting Physician: Dr. Guo- Ophthalmology Returned Call: [phone] Discussed the patient's case with Dr. Guo. He is going to come evaluate the patient himself. Additional Consults: Time Called: 1421, 1449 Consulted Physician: Dr. Barnard- Internal Medicine Returned Call: [phone], [phone] Additional Comments: I discussed the patient's case with Dr. Barnard. Dr. Barnard wants to hear what Ophthalmology has to say. I updated Dr. Barnard on the patient's case. The patient will be evaluated for further treatment. Time Called: 1442 Consulted Physician: Dr. Yepez- Neurology Returned Call: [phone] Additional Comments: I discussed the case with Dr. Yepez and he agrees with the plan of an MRI. He would also like the patient to receive Solu-Medrol. Impression Primary Impression: Substernal chest pain Additional Impressions: Optic neuritis Subtherapeutic international normalized ratio (INR) Scribe Attestation The scribe's documentation has been prepared under my direction and personally reviewed by me in its entirety. I confirm that the note above accurately reflects all work, treatment, procedures, and medical decision making performed by me. Departure Information Dispostion Being Evaluated By Hospitalist Referrals Oc Sesay PA-C (PCP) Patient Instructions My [facility] Problem Qualifiers
--- NOTE | 2016-06-21 16:56 | HISTORY & PHYSICAL EXAMINATION ---
DATE OF ADMISSION: 06/21/2016 This is a level 3 inpatient admission, 35 minutes. CHIEF COMPLAINT: Right eye pain and left chest pain. HISTORY OF PRESENT ILLNESS: The patient is a 61-year-old white female with a significant past medical history of bilateral PE, on Coumadin, bowel obstruction, cellulitis, Crohn disease, rectal bleeding, bowel obstruction came into the hospital Emergency Department because of the above chief complaint. The patient reports her left chest pain started from this morning. Her chest pain was 10/10. Having some difficulty breathing. History of blood clot in the lung recently, has been on Coumadin. She was reported INR was 2.3, 3 days ago. When the ED physician examined her, she has no difficulty breathing; however, reported the right eye bothering her. She cannot open eyes and it hurts when moves. She states she does not remember any scratches to eye and denied wearing contact lens. She stated it is making her vision fuzzy. History of Crohn disease. The patient also reports some small headache, some abdominal pain, nauseation. The patient denied loss of conscious, headache. Denied fever and chills. Denied diaphoresis. Denied cough, chest pain, palpitations. Denied lower extremity swellings. Denied abdominal pain, diarrhea, constipation or blood in the stool. Denied dysuria urgency or frequencies. PAST MEDICAL HISTORY: Like I mentioned in the above, bowel obstruction, cellulitis, Crohn disease, PE on Coumadin, rectal bleedings, right upper quadrant abdominal normal pain and small bowel obstructions. ALLERGIES: No known drug allergies. FAMILY HISTORY: Noncontributory. SOCIAL HISTORY: She is still smoking. The patient lives alone and is . Denied illicit drug abuse. Denied alcohol abuse. CURRENT MEDICATIONS: She is taking which includes aspirin 81 mg p.o. daily, vitamin B12 1000 mg p.o. daily, ferrous sulfate 325 mg p.o. daily, laxative 500 mg p.o. b.i.d., omeprazole 20 mg p.o. q.a.m., prednisone 5 mg p.o. use as directed, warfarin 5 mg p.o. daily. PHYSICAL EXAMINATION: VITAL SIGNS: Temperature is 36.7, pulse 97, respiration rate 20, blood pressure 176/86, pulse ox was 97% on room air. GENERAL: The patient is a white female, awake, alert and orientated. No acute distress, conversational, follows all commands. HEAD: Normocephalic. EYES: Pupils equal, round responds to light. EARS: Ear was normal. NOSE: Normal. NECK: Supple. Thyroid no enlargement. Trachea midline. LUNGS: Decreased breathing sounds. There were no wheezing, rhonchi or crackles. HEART: Regular rhythm S1, S2, has no murmur. Pulse was symmetric and normal. ABDOMEN: Soft, nontender. Bowel sounds positive. No guarding. No rebounds. No masses. MUSCULOSKELETAL: Chest examination has no obvious tenderness in the back on inspection, there was no any obvious abnormalities. There was no CVA tenderness to palpation, no joint edema. GENITOURINARY AND RECTAL: Deferred. NEUROLOGIC: No motor deficits. Cranial nerve through XII was intact. There was no deficits. Her locomotive boilermaker's vision examination in the right eye which is 20-100, which is a significant decrease. SKIN: Has no rashes. LABORATORY STUDIES: WBC 7.6, hemoglobin 15, platelet 296. PT/INR was 19/1.8. potassium 4.1, BUN 13, AST 14, ALT 29, lipase 169. IMAGING DATA: Orbit CT in the Emergency Room which shows no significant abnormalities, no retrobulbar hematoma. Chest x-ray 2 view no acute disease , ASSESSMENT AND PLAN: A 61-year-old white female with the conditions below. 1. Right eye pain with decreased hearing. Differential diagnoses include ischemic or inflammatory or Lyme disease. locomotive boilermaker saw the patient, there was no thrombosis, no acute hemorrhages. he recommend about a brain MRI and start Solu-Medrol with double check with neurologist, Ed physician call to precision honer neurologist , he agreed. 2. Recent PE. INR is 1.8. We will continue current dose and follow up PT/INR levels. 3. For the optic neuritis. Differential diagnosis is broad because lyme disease, labs sent; 4. Recent acute PE. Will continue current medications. Include Coumadin. 5. Past medical history of Crohn disease, diverticulosis, recent small bowel obstruction and hemorrhoids. Will continue home medication and follow up. 6. Gastrointestinal and deep vein thrombosis prophylaxis is covered. [facility]
[2016-06-21] MEDS ORDERED: GADAVIST IV PRN (17:00)
[2016-06-21] MEDS: WARFARIN SOD 5 MG TAB PO SCH (17:00)
[2016-06-21 17:38] VITALS: BP 140/68; PULSE 78; TEMP 36.6; O2SAT 94; Ht 167.6 cm; Wt 117.4 kg
--- NOTE | 2016-06-21 17:45 | DIAGNOSTIC IMAGING REPORT ---
Brain MRI WITH AND WITHOUT CONTRAST HISTORY: right optic neuritis, eval brain TECHNIQUE: Multiplanar multisequence MRI of the brain was performed both before and after the intravenous administration of contrast. COMPARISON STUDY: None. FINDINGS: There is no mass, hematoma, midline shift, or acute infarct. The paranasal sinuses are clear. The mastoid air cells are clear. The ventricles and sulci are within normal limits for age. A few punctate foci of T2 hyperintensity seen within the periventricular and subcortical white matter are nonspecific but suggestive of mild microvascular ischemic changes. The major vascular flow voids at the skull base are well-maintained. Mild thickening and increased T2 signal within the right optic nerve in comparison to the left. There is also faint enhancement within the right optic nerve and minimal inflammatory change within the retrobulbar fat. IMPRESSION: 1. Mild thickening with mild abnormal signal and enhancement within the right optic nerve. There is also minimal inflammatory change within the right retrobulbar fat. Findings favor an optic neuritis. 2. There are few punctate foci of T2 hyperintensity seen within the periventricular and subcortical white matter of the supratentorial brain. The pattern favors mild microvascular ischemic change. However, a demyelinating process could also have a similar appearance. Electronically signed by: Deejay Jin M.D. 06/21/2016 5:44 PM Dictated Date/Time: 06/21/2016 5:36 PM
--- NOTE | 2016-06-21 17:47 | DIAGNOSTIC IMAGING REPORT ---
Brain MRA HISTORY: Right orbit pain. Stroke - Attention to [place] TECHNIQUE: 3-D [id number] MRA of the brain was performed without contrast. COMPARISON STUDY: None. FINDINGS: Visualized intracranial internal carotid arteries, distal vertebral arteries, and basilar artery are widely patent. There is no significant stenosis, occlusion, or aneurysm seen within the bilateral ACAs, MCAs, or health program director. There is a hypoplastic left P1 segment. IMPRESSION: No significant stenosis, occlusion, or aneurysm within the [place]. Electronically signed by: Deejay Jin M.D. 06/21/2016 5:46 PM Dictated Date/Time: 06/21/2016 5:44 PM
--- NOTE | 2016-06-21 17:51 | DIAGNOSTIC IMAGING REPORT ---
NECK MRA HISTORY: Right orbital pain. Stroke TECHNIQUE: [id number] and gadolinium-enhanced MRA of the neck was performed both before and after the intravenous administration of contrast. All measurements were calculated based on NASCET criteria. COMPARISON STUDY: None. FINDINGS: The aortic arch and proximal great vessels are widely patent. There is no significant stenosis, occlusion, or dissection identified within the bilateral common carotid, left internal carotid, or vertebral arteries. Mild irregularity within the right carotid bulb resulting in mild narrowing of approximately 20-30%. IMPRESSION: Approximately 20-30% narrowing within the right carotid bulb. Otherwise, no significant stenosis, occlusion, or dissection identified within the carotid or vertebral arteries. Electronically signed by: Deejay Jin M.D. 06/21/2016 5:49 PM Dictated Date/Time: 06/21/2016 5:46 PM
--- NOTE | 2016-06-21 18:26 | OPHTHALMOLOGY CONSULTATION ---
DATE OF CONSULTATION: 06/21/2016 CHIEF COMPLAINT: Decreased vision and pain in the right eye. HISTORY OF PRESENT ILLNESS: The patient is a very pleasant 61-year-old woman who presented to the Emergency Room today with complaints of right eye pain and loss of vision. She states that this began last night and the vision has continued to worsen over the day and into this afternoon. She also has chest pain and has recently been treated for "blood clots." She is on anticoagulation therapy for that. She denies any previous ocular disease. She does wear reading glasses. PAST MEDICAL HISTORY: Crohn disease. MEDICATIONS: She currently takes oral prednisone for Crohn disease. PHYSICAL EXAMINATION: Visual acuity with correction on a near acuity card was 20/200 in the right eye and 20/40 in the left. Pupillary examination shows a small right afferent pupillary defect. Confrontation visual parekh were full. Motility was normal except for pain with movement of the right eye. The slit lamp examination showed clear corneas, quiet conjunctiva, clear sclerae, a deep and quiet anterior chamber, round and reactive irises, and mild nuclear sclerosis in both eyes. Fundus examination on the right reveals a mildly swollen right optic nerve. There were no other abnormalities in the fundus with normal macula, retinal vessels, and retinal periphery in both eyes. The optic nerve in the left eye was unremarkable. 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 It is difficult to state with certainty, the etiology of her right optic neuropathy, but I would lean towards an optic neuritis. Other possibilities would include an ischemic optic neuropathy. However, given her classic presentation with pain and a worsening course over the last 24 hours, optic neuritis is a more likely diagnosis. For that reason, I would recommend getting an MRI to look for any signs of MS. In addition, it may be advisable to consult neurology and start her on IV steroids to hasten her recovery. Following her discharge she should be seen in our office for further testing including visual field testing. Please call [phone] with questions. [place]
[2016-06-21 19:03] VITALS: BP 138/82; PULSE 72; TEMP 36.8; O2SAT 94
[2016-06-21] MEDS: PSYLLIUM 58.6% PWD PACK S\\F PO SCH (19:50)
[2016-06-21] MEDS ORDERED: COUGH DROP (SUGAR FREE) LOZ 24 LOZ/1 BOX ONE (20:04)
[2016-06-21] MEDS: ACETAMINOPHEN 325 MG TAB PO PRN (23:26)
[2016-06-21] MEDS: TRAZODONE HCL 50 MG TAB PO PRN (23:36)
[2016-06-22] VITALS (10 sets, daily range): BP systolic 118–132; BP diastolic 71–80; PULSE 67–102; TEMP 36.5–37; O2SAT 92–98
[2016-06-22] MEDS: ACETAMINOPHEN 325 MG TAB PO PRN ×2 (04:21→13:18)
[2016-06-22 06:29] LABS: ESTIMATED AVERAGE GLUCOSE 114 mg/dl; HA1C FLAG Normal (Normal)
[2016-06-22 06:42] LABS: BASO % 0.2 %; BASO ABS # 0.01 K/uL (0-0.2); COMPLETE YES; HEMATOCRIT 42.3 % (37-47); IG% 0.9 %; LYMPH % 16.1 %; LYMPH ABS # 1.07 K/uL (1.2-3.4); MEAN CORPUSCULAR HEMOGLOBIN 31.5 pg (25-34); MEAN CORPUSCULAR HGB CONC 34.3 g/dl (32-36); MEAN PLATELET VOLUME 9.5 fL (7.4-10.4); MONO % 0.5 %; NEUT % 82.3 %; PLATELET COUNT 261 K/uL (130-400); WHITE BLOOD COUNT 6.64 K/uL (4.8-10.8)
[2016-06-22 06:51] LABS: INR 1.8 (0.9-1.1); PROTHROMBIN TIME (PATIENT) 20.1 SECONDS (9.0-12.0)
[2016-06-22 07:09] LABS: BUN/CREATININE RATIO 16.8 (10-20); CALCIUM 9.1 mg/dl (8.5-10.1); CREATININE 0.93 mg/dl (0.60-1.20); MAGNESIUM 2.1 mg/dl (1.8-2.4); POTASSIUM 4.2 mmol/L (3.5-5.1)
[2016-06-22 07:21] LABS: CHOLESTEROL/HDL RATIO 4.1; PHOSPHORUS 3.4 mg/dl (2.5-4.9); THYROID STIMULATING HORMONE 0.109 uIu/ml (0.300-4.500)
[2016-06-22] MEDS: PANTOprazole SOD 40 MG TAB PO SCH (07:33)
[2016-06-22] MEDS: LACTOBACILLUS ACIDOPHILUS (FLORANEX) TAB PO SCH (07:33)
[2016-06-22] MEDS: FERROUS SULFATE 325 MG TAB PO SCH (07:33)
[2016-06-22] MEDS: PSYLLIUM 58.6% PWD PACK S\\F PO SCH ×2 (07:34→22:24)
[2016-06-22] MEDS: ASPIRIN 81 MG ECTAB PO SCH (07:34)
[2016-06-22] MEDS: CYANOCOBALAMIN 500 MCG TAB (VIT B-12) PO SCH (07:34)
[2016-06-22] MEDS: METHYLPREDNISOLONE IV 1,000 MG in DEXTROSE 5% 250ML 250 ML IV SCH (07:41)
--- NOTE | 2016-06-22 09:31 | Hospitalist Progress Note ---
Hospitalist Progress Note Date of Service June 22, 2016. Subjective Pt evaluation today including: conversation w/ patient, physical exam, chart review, lab review, review of studies Pain: L abdominal PO Intake: Good Voiding: no voiding problems The patient was seen and examined this morning. Pt reports doing well this morning. She notes her vision in her right eye is very blurry and that she's seeing bright colors (greens and purples) when she looks at the TV. She notes her abdomen is feeling slightly painful and that there is some burning, this is new as of overnight. It seems that this is the same way her acute crohn's flares start. Her last BM was yesterday morning and was normal, brown, formed. Today she had a small pebble like bowel movement. She is wearing oxygen, but says she requested this herself because she has some chest tightness with deep breaths, this is not new. She denies any chest pain, shortness of breath, headache, lightheadedness, dizziness, fevers, chills, sweats. Additional Comments: 10 point ROS was obtained and is negative other than listed in the history of present illness. Objective Vital Signs Date Time Temp Pulse Resp B/P Pulse Ox O2 Delivery O2 Flow Rate FiO2 06/22/16 09:03 36.6 75 20 129/77 95 Room Air 06/22/16 08:00 36.5 72 20 123/71 94 Room Air 06/22/16 08:00 92 Room Air 06/22/16 04:00 36.6 70 20 128/74 92 Room Air 06/22/16 04:00 Room Air 06/22/16 00:00 Room Air 06/22/16 00:00 36.7 71 18 118/74 92 Room Air 06/21/16 20:00 Room Air 06/21/16 19:03 36.8 72 18 138/82 94 Room Air 06/21/16 17:38 36.6 78 18 140/68 94 Room Air 06/21/16 17:11 75 18 135/89 94 Room Air 06/21/16 15:05 73 18 159/92 96 Room Air 06/21/16 13:25 80 18 156/81 98 Room Air 06/21/16 12:18 83 18 135/75 92 Room Air 06/21/16 12:04 78 06/21/16 11:29 97 Room Air 06/21/16 11:16 97 Room Air 06/21/16 11:16 97 Room Air 06/21/16 10:36 36.7 97 20 176/86 97 Room Air Physical Exam Notes: General: awake, alert, no apparent distress, morbidly obese Head: Normocephalic, atraumatic ENT: PERRL, EOMI, no pharyngeal exudate, mucous membranes moist Chest: Clear to auscultation, on room air, no adventitious breath sounds Cardiac: Regular rate and rhythm, + systolic murmur Grade II/V, no JVD, normal peripheral pulses, good capillary refill Abdominal: NABS x 4 quadrants, soft, mild tenderness in the left upper quadrant and flank to palpation, no rebound, guarding or tenderness Extremities: Normal inspection, mild peripheral edema with pitting, no erythema , calfs nontender to palpation Psych: Normal mood and affect Neuro: AAO x 3, strength intact bilaterally and related 5/5, no motor deficits, speech is clear, no peripheral sensory deficits Laboratory Results Last 24 Hours Test 06/21/16 10:55 06/22/16 06:25 White Blood Count 7.67 K/uL 6.64 K/uL Red Blood Count 4.81 M/uL 4.60 M/uL Hemoglobin 15.1 g/dL 14.5 g/dL Hematocrit 44.3 % 42.3 % Mean Corpuscular Volume 92.1 fL 92.0 fL Mean Corpuscular Hemoglobin 31.4 pg 31.5 pg Mean Corpuscular Hemoglobin Concent 34.1 g/dl 34.3 g/dl Platelet Count 296 K/uL 261 K/uL Mean Platelet Volume 9.1 fL 9.5 fL Neutrophils (%) (Auto) 62.6 % 82.3 % Lymphocytes (%) (Auto) 24.1 % 16.1 % Monocytes (%) (Auto) 8.1 % 0.5 % Eosinophils (%) (Auto) 1.2 % 0.0 % Basophils (%) (Auto) 0.7 % 0.2 % Neutrophils # (Auto) 4.81 K/uL 5.47 K/uL Lymphocytes # (Auto) 1.85 K/uL 1.07 K/uL Monocytes # (Auto) 0.62 K/uL 0.03 K/uL Eosinophils # (Auto) 0.09 K/uL 0.00 K/uL Basophils # (Auto) 0.05 K/uL 0.01 K/uL RDW Standard Deviation 51.1 fL 49.1 fL RDW Coefficient of Variation 15.0 % 14.5 % Immature Granulocyte % (Auto) 3.3 % 0.9 % Immature Granulocyte # (Auto) 0.25 K/uL 0.06 K/uL Red Blood Cell Morphology Unremarkable Erythrocyte Sedimentation Rate 30 mm/hr Prothrombin Time 19.5 SECONDS 20.1 SECONDS Prothromb Time International Ratio 1.8 1.8 Activated Partial Thromboplast Time 34.8 SECONDS Partial Thromboplastin Ratio 1.3 Sodium Level 141 mmol/L 135 mmol/L Potassium Level 4.1 mmol/L 4.2 mmol/L Chloride Level 107 mmol/L 102 mmol/L Carbon Dioxide Level 26 mmol/L 24 mmol/L Anion Gap 8.0 mmol/L 9.0 mmol/L Blood Urea Nitrogen 13 mg/dl 16 mg/dl Creatinine 0.82 mg/dl 0.93 mg/dl Estimated GFR () 88.9 76.3 Estimated GFR (Non- 76.7 65.9 BUN/Creatinine Ratio 15.6 16.8 Random Glucose 97 mg/dl 180 mg/dl Estimated Average Glucose 114 mg/dl Hemoglobin A1c 5.6 % Calcium Level 9.1 mg/dl 9.1 mg/dl Total Bilirubin 0.4 mg/dl Direct Bilirubin < 0.1 mg/dl Aspartate Amino Transf (AST/SGOT) 14 U/L Alanine Aminotransferase (ALT/SGPT) 29 U/L Alkaline Phosphatase 57 U/L Total Creatine Kinase 26 U/L Creatine Kinase MB < 0.5 ng/ml Creatine Kinase MB Ratio Troponin I < 0.015 ng/ml C-Reactive Protein 0.55 mg/dl Total Protein 7.0 gm/dl Albumin 3.4 gm/dl Lipase 169 U/L Lyme Disease IgM Antibody NEG Est Creatinine Clear Calc Drug Dose 81.7 ml/min Phosphorus Level 3.4 mg/dl Magnesium Level 2.1 mg/dl Triglycerides Level 166 mg/dl Cholesterol Level 254 mg/dl HDL Cholesterol 62 mg/dl LDL Cholesterol, Calculated 159 mg/dl VLDL Cholesterol, Calculated 33 mg/dl Cholesterol/HDL Ratio 4.1 Vitamin B12 Level 622 pg/mL Folate > 24.00 ng/mL Thyroid Stimulating Hormone (TSH) 0.109 uIu/ml Assessment and Plan 61 yo F with PMHx of Crohns disease, diverticulosisi, recent small bowel obstruction and hemorrhoids, hx PE approximately 2 months ago, admitted for optic neuritis of the right eye. Optic neuritis - Was administered Solumedrol IV 1000mg in the ED. - Inflammatory markers are elevated: CRP =0.55 and ESR=30 - Ophthalmology on board, appreciate recommendations - Neurology consultation- appreciate recs: Continue Solu-Medrol IV 1000mg daily x 3 days and then send home with a medrol dosepack. - MRI neck and head were obtained - negative other than approximately 20-30% narrowing within the right carotid bulb. - Brain MRI w/wo contrast showing mild thickening with mild abnormal signal and enhancement within the right optic nerve. There is also minimal inflammatory change within the right retrobulbar fat. Findings favor an optic neuritis. There are few punctate foci of T2 hyperintensity seen within the periventricular and subcortical white matter of the supratentorial brain. The pattern favors mild microvascular ischemic change. However, a demyelinating process could also have a similar appearance. Hyponatremia - Na= 134, borderline and likely to resolve with diet and fluids Hx Pe from previous admission - Continue on coumadin - INR currently therapeutic at 1.8 Crohn disease, diverticulosis, recent small bowel, obstruction and hemorrhoids. - The patient has previously had multiple bouts and admissions regarding this, she is now reporting a left sided abdominal and flank burning and pain which is mild. She says this is how her other acute flares have started. The patient is already on IV steroids for the optic neuritis so this should cover any type of acute flare of Crohn's disease. Her last bowel movement was yesterday morning which was formed and brown. Can consider a CT of the abdomen if her symptoms worsen but for now clinically stable. Hypothyroidism - TSH is low at 0.108, will check T3 and T4 DVT ppx: teds, scds, on coumadin CODE STATUS: Full code Disposition: From home, living with her sister, no CM needs anticipated
--- NOTE | 2016-06-22 09:56 | Neurology Consultation ---
Neurology Consultation Date of Consultation: June 22, 2016. Attending Physician: Juan Francisco Mason D.O. Primary Care Physician: Oc Sesay PA-C Reason for Consultation: Optic neuritis History of Present Illness Source: patient, hospital records The patient is a 61-year-old female who complains of right eye pain that began about 2 days ago and is worse with eye movement. She complains of associated blurry vision with the right eye only and difficulty reading. She has noticed that colors are less intense with the right eye as well. The patient was seen by ophthalmology, Dr. Gallagher, and diagnosed with probable right optic neuritis. She has had 2 doses of Solu-Medrol totaling 1 g each and reports considerable improvement in her right eye pain. The vision disturbance has not changed, however. 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 Patient also has a history of Crohn's disease and has been actively tapering off prednisone. She follows with gastroenterology. I reviewed the images and radiologist's impression of the recently completed brain MRI. The right optic nerve is mildly thickened and enhances slightly as compared to the left. These findings are consistent with this patient's diagnosis of suspected optic neuritis. The study also reveals a few T2/flair hyperintense foci within the cerebral hemispheres probably consistent with chronic small vessel ischemic change. 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 Social History Drug Use: none Marital Status: Housing Status: lives alone Occupation Status: unemployed Allergies Coded Allergies: No Known Allergies (Unverified , 06/21/16) Current Inpatient Medications Current Inpatient Medications Medications (Trade) Dose Ordered Sig/Rachael Route Start Time Stop Time Status Last Admin Dose Admin Acetaminophen (Tylenol Tab) 650 mg Q4H PRN PO 06/21/16 15:30 07/21/16 15:29 06/22/16 04:21 650 MG Al Hydrox/Mg Hydrox/Simethicone (Maalox Max Susp) 15 ml Q4H PRN PO 06/21/16 15:30 07/21/16 15:29 Magnesium Hydroxide (Milk Of Magnesia Susp) 30 ml Q12H PRN PO 06/21/16 15:30 07/21/16 15:29 Zolpidem Tartrate (Ambien Tab) 5 mg HSZ PRN PO 06/21/16 15:30 07/21/16 15:29 Ondansetron HCl (Zofran Inj) 4 mg Q6H PRN IV 06/21/16 15:30 07/21/16 15:29 Polyethylene (Miralax Powder Packet) 17 gm DAILY PRN PO 06/21/16 15:30 07/21/16 15:29 Aspirin (Ecotrin Tab) 81 mg DAILY PO 06/22/16 09:00 07/22/16 08:59 06/22/16 07:34 81 MG Trazodone HCl (Desyrel Tab) 50 mg HS PRN PO 06/21/16 15:45 07/21/16 15:44 06/21/16 23:36 50 MG Warfarin Sodium (Coumadin Tab) 5 mg DAILY@16 PO 06/21/16 17:00 07/21/16 16:59 06/21/16 17:00 5 MG Cyanocobalamin (Vitamin B-12 Tab) 1,000 mcg DAILY PO 06/22/16 09:00 07/22/16 08:59 06/22/16 07:34 1,000 MCG Ferrous Sulfate (Feosol Tab) 325 mg DAILY PO 06/22/16 09:00 07/22/16 08:59 06/22/16 07:33 325 MG Psyllium Hydrophilic Mucilloid (Metamucil Powder) 1 pkt BID PO 06/21/16 21:00 07/21/16 20:59 06/22/16 07:34 1 PKT Pantoprazole Sodium (Protonix Tab) 40 mg QAM PO 06/22/16 09:00 6/14/17 08:59 06/22/16 07:33 40 MG Lactobacillus Acidophilus 4 tab 4 tab DAILY PO 06/22/16 09:00 07/22/16 08:59 06/22/16 07:33 4 TAB Methylprednisolone Sodium Succinate/ Dextrose (Solu-Medrol IV/ D5 250ml) 266 ml @ 250 mls/hr DAILY IV 06/22/16 09:00 07/22/16 08:59 06/22/16 07:41 250 MLS/HR Morphine Sulfate (MoRPHine SULFATE INJ) 4 mg Q6H PRN IV 06/21/16 15:45 07/05/16 15:44 Gadobutrol (Gadavist) 11 mmol UD PRN IV 06/21/16 17:00 06/25/16 16:59 Review of Systems The patient denies fever, chills, hearing loss, chest pain, palpitations, shortness of breath, coughing, wheezing, abdominal pain, muscle pain, joint pain , rash, abnormal bruising or bleeding, swollen glands, depression or anxiety. The patient does complain of vision loss and eye pain as described in the history of present illness. A full 10 point review of systems was obtained in this patient with pertinent positives and negatives described in the history of present illness and otherwise listed above. Physical Exam Vital Signs (Past 24 Hrs): Date Time Temp Pulse Resp B/P Pulse Ox O2 Delivery O2 Flow Rate FiO2 06/22/16 09:03 36.6 75 20 129/77 95 Room Air 06/22/16 08:00 36.5 72 20 123/71 94 Room Air 06/22/16 08:00 92 Room Air 06/22/16 04:00 36.6 70 20 128/74 92 Room Air 06/22/16 04:00 Room Air 06/22/16 00:00 Room Air 06/22/16 00:00 36.7 71 18 118/74 92 Room Air 06/21/16 20:00 Room Air 06/21/16 19:03 36.8 72 18 138/82 94 Room Air 06/21/16 17:38 36.6 78 18 140/68 94 Room Air 06/21/16 17:11 75 18 135/89 94 Room Air 06/21/16 15:05 73 18 159/92 96 Room Air 06/21/16 13:25 80 18 156/81 98 Room Air 06/21/16 12:18 83 18 135/75 92 Room Air 06/21/16 12:04 78 06/21/16 11:29 97 Room Air 06/21/16 11:16 97 Room Air 06/21/16 11:16 97 Room Air 06/21/16 10:36 36.7 97 20 176/86 97 Room Air The patient is a well-developed, well-nourished, elderly female. She is in no acute distress. The patient is alert and oriented to person place and time. Attention and concentration normal. She exhibits a normal fluent speech pattern. She is able to name objects and repeats phrases. Recent and remote memory intact. Fund of knowledge and vocabulary normal. Visual parekh are full to confrontation. Visual acuity is greatly diminished for the right eye, unable to read text with the right eye even with eyewear correction. There is an afferent pupillary defect for the right eye. The left pupil is round and reacts to light. The consensual reflex is intact. Eye movements normal. No nystagmus or ptosis. Facial sensation intact bilaterally. There is no facial droop or facial weakness. Palate elevates to midline. Tongue protrudes to midline. Shoulder shrug strength intact bilaterally. Sensation intact to light touch, temperature, vibration, and proprioception for the limbs. Deep tendon reflexes are 2+ for the arms and legs bilaterally, plantar responses downgoing bilaterally. There is no dysmetria with finger to nose or heel to lou bilaterally. Ophthalmoscopic examination reveals mild papilledema for the right eye. The left optic nerve is normal. Posterior elements normal bilaterally. Carotid pulses normal bilaterally, no bruits to auscultation. Musculoskeletal examination reveals normal strength and tone for all 4 limbs proximally and distally. No atrophy. No abnormal movements. Gait and station normal. Laboratory Results Past 24 Hours: 06/22/16 06:25 Red Blood Count 4.60, Mean Corpuscular Volume 92.0, Mean Corpuscular Hemoglobin 31.5, Mean Corpuscular Hemoglobin Concent 34.3, Mean Platelet Volume 9.5, Neutrophils (%) (Auto) 82.3, Lymphocytes (%) (Auto) 16.1, Monocytes (%) (Auto) 0.5, Eosinophils (%) (Auto) 0.0, Basophils (%) (Auto) 0.2, Neutrophils # (Auto) 5.47, Lymphocytes # (Auto) 1.07, Monocytes # (Auto) 0.03, Eosinophils # (Auto) 0.00, Basophils # (Auto) 0.01 06/22/16 06:25 Test 06/21/16 10:55 06/22/16 06:25 Red Blood Cell Morphology Unremarkable Erythrocyte Sedimentation Rate 30 mm/hr (0-21) Activated Partial Thromboplast Time 34.8 SECONDS (21.0-31.0) Partial Thromboplastin Ratio 1.3 Estimated Average Glucose 114 mg/dl Hemoglobin A1c 5.6 % (4.5-5.6) Total Bilirubin 0.4 mg/dl (0.2-1) Direct Bilirubin < 0.1 mg/dl (0-0.2) Aspartate Amino Transf (AST/SGOT) 14 U/L (15-37) Alanine Aminotransferase (ALT/SGPT) 29 U/L (12-78) Alkaline Phosphatase 57 U/L (45-117) Total Creatine Kinase 26 U/L (26-192) Creatine Kinase MB < 0.5 ng/ml (0.5-3.6) Creatine Kinase MB Ratio (0-3.0) Troponin I < 0.015 ng/ml (0-0.045) C-Reactive Protein 0.55 mg/dl (0-0.29) Total Protein 7.0 gm/dl (6.4-8.2) Albumin 3.4 gm/dl (3.4-5.0) Lipase 169 U/L (73-393) Lyme Disease IgM Antibody NEG (NEG) White Blood Count 6.64 K/uL (4.8-10.8) Red Blood Count 4.60 M/uL (4.2-5.4) Hemoglobin 14.5 g/dL (12.0-16.0) Hematocrit 42.3 % (37-47) Mean Corpuscular Volume 92.0 fL (80-100) Mean Corpuscular Hemoglobin 31.5 pg (25-34) Mean Corpuscular Hemoglobin Concent 34.3 g/dl (32-36) Platelet Count 261 K/uL (130-400) Mean Platelet Volume 9.5 fL (7.4-10.4) Neutrophils (%) (Auto) 82.3 % Lymphocytes (%) (Auto) 16.1 % Monocytes (%) (Auto) 0.5 % Eosinophils (%) (Auto) 0.0 % Basophils (%) (Auto) 0.2 % Neutrophils # (Auto) 5.47 K/uL (1.4-6.5) Lymphocytes # (Auto) 1.07 K/uL (1.2-3.4) Monocytes # (Auto) 0.03 K/uL (0.11-0.59) Eosinophils # (Auto) 0.00 K/uL (0-0.5) Basophils # (Auto) 0.01 K/uL (0-0.2) RDW Standard Deviation 49.1 fL (36.4-46.3) RDW Coefficient of Variation 14.5 % (11.5-14.5) Immature Granulocyte % (Auto) 0.9 % Immature Granulocyte # (Auto) 0.06 K/uL (0.00-0.02) Prothrombin Time 20.1 SECONDS (9.0-12.0) Prothromb Time International Ratio 1.8 (0.9-1.1) Anion Gap 9.0 mmol/L (3-11) Est Creatinine Clear Calc Drug Dose 81.7 ml/min Estimated GFR () 76.3 Estimated GFR (Non- 65.9 BUN/Creatinine Ratio 16.8 (10-20) Calcium Level 9.1 mg/dl (8.5-10.1) Phosphorus Level 3.4 mg/dl (2.5-4.9) Magnesium Level 2.1 mg/dl (1.8-2.4) Triglycerides Level 166 mg/dl (0-150) Cholesterol Level 254 mg/dl (0-200) HDL Cholesterol 62 mg/dl LDL Cholesterol, Calculated 159 mg/dl VLDL Cholesterol, Calculated 33 mg/dl Cholesterol/HDL Ratio 4.1 Vitamin B12 Level 622 pg/mL (211-911) Folate > 24.00 ng/mL (>5.38) Thyroid Stimulating Hormone (TSH) 0.109 uIu/ml (0.300-4.500) Impression Right optic neuritis. Pain improved with Solu-Medrol. Continues to have incomplete visual loss for the right eye. MRI findings not suggestive of multiple sclerosis currently. Patient's history of Crohn's disease and recent corticosteroid taper could have been a factor in her presentation. History of resolved Klein's palsy could raise some concern for a relapsing remitting demyelinating disorder such as MS. Plan Would continue with Solu-Medrol for treatment of right optic neuritis. Would recommend 3 days of treatment with 1 g of Solu-Medrol given each day for a total of 3 g. Patient should be discharged with a Medrol Dosepak taper. However, she may continue with her outpatient prednisone regimen for Crohn's disease at time of discharge. Have this patient follow up with me in clinic as an outpatient. She will need to follow-up with Dr. Gallagher, ophthalmology, as well. I have no further immediate recommendations, please contact me if I may be of further assistance.
[2016-06-22] MEDS: WARFARIN SOD 5 MG TAB PO SCH (16:00)
[2016-06-22] MEDS ORDERED: NURSING VERBAL MED ORDER ONE (16:45)
[2016-06-22] MEDS: NICOTINE 7 MG/24 HR TDSY EXT SCH (17:10)
[2016-06-22] MEDS: MoRPHine SULFATE 4 MG/ML 1 ML CARP\\VIAL IV PRN (18:06)
[2016-06-23 00:16] VITALS: BP 125/77; PULSE 72; TEMP 36.4; O2SAT 94
[2016-06-23] MEDS: TRAZODONE HCL 50 MG TAB PO PRN (00:28)
[2016-06-23] MEDS: MoRPHine SULFATE 4 MG/ML 1 ML CARP\\VIAL IV PRN (01:17)
[2016-06-23 05:54] LABS: BASO % 0.1 %; BASO ABS # 0.01 K/uL (0-0.2); COMPLETE YES; IG% 0.7 %; LYMPH % 9.6 %; LYMPH ABS # 1.02 K/uL (1.2-3.4); MEAN CELL VOLUME 92.2 fL (80-100); MEAN CORPUSCULAR HEMOGLOBIN 30.9 pg (25-34); MEAN CORPUSCULAR HGB CONC 33.5 g/dl (32-36); MEAN PLATELET VOLUME 9.1 fL (7.4-10.4); NEUT % 85.6 %; PLATELET COUNT 274 K/uL (130-400); RED BLOOD COUNT 4.34 M/uL (4.2-5.4); WHITE BLOOD COUNT 10.63 K/uL (4.8-10.8)
[2016-06-23 06:03] LABS: INR 2.9 (0.9-1.1); PROTHROMBIN TIME (PATIENT) 31.9 SECONDS (9.0-12.0)
[2016-06-23 06:33] LABS: BUN/CREATININE RATIO 22.8 (10-20); CALCIUM 9.3 mg/dl (8.5-10.1); CREATININE 0.83 mg/dl (0.60-1.20); POTASSIUM 4.3 mmol/L (3.5-5.1)
[2016-06-23 07:55] VITALS: BP 110/67; PULSE 59; TEMP 36.4; O2SAT 95
[2016-06-23] MEDS: CYANOCOBALAMIN 500 MCG TAB (VIT B-12) PO SCH (07:59)
[2016-06-23] MEDS: LACTOBACILLUS ACIDOPHILUS (FLORANEX) TAB PO SCH (07:59)
[2016-06-23] MEDS: FERROUS SULFATE 325 MG TAB PO SCH (07:59)
[2016-06-23 08:00] VITALS: O2SAT 95
[2016-06-23] MEDS: PANTOprazole SOD 40 MG TAB PO SCH (08:00)
[2016-06-23] MEDS: PSYLLIUM 58.6% PWD PACK S\\F PO SCH ×2 (08:00→20:30)
[2016-06-23] MEDS: ASPIRIN 81 MG ECTAB PO SCH (08:01)
[2016-06-23] MEDS: NICOTINE 7 MG/24 HR TDSY EXT SCH (08:01)
[2016-06-23] MEDS: METHYLPREDNISOLONE IV 1,000 MG in DEXTROSE 5% 250ML 250 ML IV SCH (08:20)
[2016-06-23] MEDS ORDERED: OPTIRAY 320 IV PRN (13:00)
--- NOTE | 2016-06-23 15:12 | Progress Note ---
Subjective Date of Service: June 23, 2016. Subjective Pt evaluation today including: conversation w/ patient, physical exam, lab review, review of studies, review of inpatient medication list Pain: RLQ pain, same as yesterday PO Intake: adequate Voiding: no voiding problems patient concerned because she is constipated, no BM since yesterday AM and she typically has 3 BM daily passing flatus, no increase in distension or pain discussed obtained a CT abdomen/pelvis and she agreed reviewed film personally, on my read there is a lot of stool in colon and oral contrast makes it into colon, no obstruction will follow up on official radiology read right eye is improving, better visual acuity today, less pain Problem List Medical Problems: (1) Diarrhea Status: Acute (2) Epistaxis Status: Acute (3) Fistula of intestine, excluding rectum and anus Status: Acute (4) Multiple pulmonary emboli Status: Acute (5) Optic neuritis Status: Acute (6) Partial small bowel obstruction Status: Acute (7) Rectal bleed Status: Acute (8) RLQ abdominal pain Status: Acute (9) Small bowel obstruction Status: Acute (10) Small bowel obstruction Status: Acute (11) Substernal chest pain Status: Acute (12) Subtherapeutic international normalized ratio (INR) Status: Acute (13) 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 Review of Systems Eyes: + eye pain (right eye, improved), + worsening of vision (right eye, improving) Abdomen: + constipation, + pain (RLQ and right flank) All Other Systems: Reviewed and Negative Medications Current Inpatient Medications Medications (Trade) Dose Ordered Sig/Rachael Route Start Time Stop Time Status Last Admin Dose Admin Acetaminophen (Tylenol Tab) 650 mg Q4H PRN PO 06/21/16 15:30 07/21/16 15:29 06/22/16 13:18 650 MG Al Hydrox/Mg Hydrox/Simethicone (Maalox Max Susp) 15 ml Q4H PRN PO 06/21/16 15:30 07/21/16 15:29 Magnesium Hydroxide (Milk Of Magnesia Susp) 30 ml Q12H PRN PO 06/21/16 15:30 07/21/16 15:29 Zolpidem Tartrate (Ambien Tab) 5 mg HSZ PRN PO 06/21/16 15:30 07/21/16 15:29 Ondansetron HCl (Zofran Inj) 4 mg Q6H PRN IV 06/21/16 15:30 07/21/16 15:29 Polyethylene (Miralax Powder Packet) 17 gm DAILY PRN PO 06/21/16 15:30 07/21/16 15:29 Aspirin (Ecotrin Tab) 81 mg DAILY PO 06/22/16 09:00 07/22/16 08:59 06/23/16 08:01 81 MG Trazodone HCl (Desyrel Tab) 50 mg HS PRN PO 06/21/16 15:45 07/21/16 15:44 06/23/16 00:28 50 MG Warfarin Sodium (Coumadin Tab) 5 mg DAILY@16 PO 06/21/16 17:00 07/21/16 16:59 06/22/16 16:00 5 MG Cyanocobalamin (Vitamin B-12 Tab) 1,000 mcg DAILY PO 06/22/16 09:00 07/22/16 08:59 06/23/16 07:59 1,000 MCG Ferrous Sulfate (Feosol Tab) 325 mg DAILY PO 06/22/16 09:00 07/22/16 08:59 06/23/16 07:59 325 MG Psyllium Hydrophilic Mucilloid (Metamucil Powder) 1 pkt BID PO 06/21/16 21:00 07/21/16 20:59 06/23/16 08:00 1 PKT Pantoprazole Sodium (Protonix Tab) 40 mg QAM PO 06/22/16 09:00 07/22/16 08:59 06/23/16 08:00 40 MG Lactobacillus Acidophilus (Floranex Tab) 4 tab DAILY PO 06/22/16 09:00 07/22/16 08:59 06/23/16 07:59 4 TAB Morphine Sulfate (MoRPHine SULFATE INJ) 4 mg Q6H PRN IV 06/21/16 15:45 07/05/16 15:44 06/23/16 01:17 4 MG Gadobutrol (Gadavist) 11 mmol UD PRN IV 06/21/16 17:00 06/25/16 16:59 Nicotine (Nicoderm Cq 7 Mg Patch) 1 patch QAM EXT 06/22/16 17:00 07/22/16 16:59 06/23/16 08:01 1 PATCH Miscellaneous (Remove Nicoderm Patch) 1 ea HS N/A 06/22/16 21:00 07/22/16 20:59 Ioversol (Optiray 320) 125 ml UD PRN IV 06/23/16 13:00 06/27/16 12:59 Objective Vital Signs Date Time Temp Pulse Resp B/P Pulse Ox O2 Delivery O2 Flow Rate FiO2 06/23/16 08:00 95 Room Air 06/23/16 07:55 36.4 59 20 110/67 95 Room Air 06/23/16 00:16 36.4 72 20 125/77 94 Room Air 06/22/16 23:20 Room Air 06/22/16 18:58 Room Air 06/22/16 18:00 36.8 74 18 124/74 94 Room Air 06/22/16 17:22 36.6 67 18 92 06/22/16 16:00 92 Room Air 06/22/16 15:29 36.6 67 18 132/80 95 Room Air Physical Exam General Appearance: no apparent distress, + obese Eyes: normal inspection, PERRL, EOMI, sclerae normal ENT: normal ENT inspection, hearing grossly normal, pharynx normal Neck: supple, no adenopathy, no JVD, trachea midline Respiratory/Chest: chest non-tender, lungs clear, normal breath sounds, no respiratory distress, no accessory muscle use Cardiovascular: regular rate, rhythm, no edema, no gallop, no JVD, no murmur Abdomen: normal bowel sounds, soft, no organomegaly, + tenderness (mild TTP in RLQ, no rebound or rigidity) Extremities: normal range of motion, non-tender, normal inspection, no pedal edema, no calf tenderness Neurologic/Psychiatric: substance abuse counselor II-XII nml as tested, no motor/sensory deficits, alert, normal mood/affect, oriented x 3 Skin: normal color, warm/dry, no rash Lymphatic: no adenopathy Laboratory Results Last 24 Hours Test 06/23/16 05:30 White Blood Count 10.63 K/uL Red Blood Count 4.34 M/uL Hemoglobin 13.4 g/dL Hematocrit 40.0 % Mean Corpuscular Volume 92.2 fL Mean Corpuscular Hemoglobin 30.9 pg Mean Corpuscular Hemoglobin Concent 33.5 g/dl Platelet Count 274 K/uL Mean Platelet Volume 9.1 fL Neutrophils (%) (Auto) 85.6 % Lymphocytes (%) (Auto) 9.6 % Monocytes (%) (Auto) 4.0 % Eosinophils (%) (Auto) 0.0 % Basophils (%) (Auto) 0.1 % Neutrophils # (Auto) 9.11 K/uL Lymphocytes # (Auto) 1.02 K/uL Monocytes # (Auto) 0.42 K/uL Eosinophils # (Auto) 0.00 K/uL Basophils # (Auto) 0.01 K/uL RDW Standard Deviation 49.7 fL RDW Coefficient of Variation 14.7 % Immature Granulocyte % (Auto) 0.7 % Immature Granulocyte # (Auto) 0.07 K/uL Prothrombin Time 31.9 SECONDS Prothromb Time International Ratio 2.9 Sodium Level 138 mmol/L Potassium Level 4.3 mmol/L Chloride Level 106 mmol/L Carbon Dioxide Level 25 mmol/L Anion Gap 7.0 mmol/L Blood Urea Nitrogen 19 mg/dl Creatinine 0.83 mg/dl Est Creatinine Clear Calc Drug Dose 91.5 ml/min Estimated GFR () 87.6 Estimated GFR (Non- 75.6 BUN/Creatinine Ratio 22.8 Random Glucose 169 mg/dl Calcium Level 9.3 mg/dl Assessment and Plan 61 yo F with PMHx of Crohns disease, diverticulosis, recent small bowel obstruction and hemorrhoids, hx PE approximately 2 weeks ago, admitted for optic neuritis of the right eye. Optic neuritis evaluated by ophthamology and neurology, recommend Solu Medrol 1gm IV daily x 3 days, day 3 today will start Prednisone taper tomorrow follow up with ophthamology MRI neck and head were obtained - negative other than approximately 20-30% narrowing within the right carotid bulb. Brain MRI w/wo contrast showing mild thickening with mild abnormal signal and enhancement within the right optic nerve. There is also minimal inflammatory change within the right retrobulbar fat. Findings favor an optic neuritis Hyponatremia Na= 134 on admission, resolved Hx of bilateral PE from previous admission Continue on coumadin - INR 2.9 today, repeat tomorrow Crohn disease, diverticulosis, recent small bowel, obstruction and hemorrhoids. increased RLQ pain and no real BM in over 36 hours, she typically has [address] A/P with IV and oral contrast, official read pending, on my read there is stool in colon and oral contrast in colon no obvious signs of obstruction, await report on ileitis will consult GI since she was scheduled to follow up twice now and anxious to start biologic therapy if possible Low TSH - 0.108 on admission T3 and T4 both normal range recommend repeating TSH in several weeks with PCP patient used to take Synthroid, weight 400lbs at one point and lost 200lbs DVT ppx: teds, scds, on coumadin CODE STATUS: Full code Disposition: From home, living with her sister, no CM needs anticipated
--- NOTE | 2016-06-23 15:22 | DIAGNOSTIC IMAGING REPORT ---
ABDOMEN AND PELVIS CT WITH IV AND ORAL CONTRAST CT DOSE: 1015.26 mGycm HISTORY: Pain. Nausea. constipation, nausea, h/o Crohn's ileitis TECHNIQUE: Multiaxial CT images of the abdomen and pelvis were performed following the use of intravenous and oral contrast. COMPARISON STUDY: 06/07/2016 FINDINGS: Lung bases are clear. Liver spleen and pancreas enhance uniformly. Findings of wall thickening of the small bowel have essentially resolved. There is a moderate increase in fecal load throughout the colon. There is no evidence for fecal impaction. There is no free fluid within the pelvic cul-de-sac. There is no significant abdominal pelvic or inguinal adenopathy. Kidneys enhance uniformly and are negative for hydronephrosis. IMPRESSION: 1. Improved exam with a small bowel pattern now approaching a near normal/normal appearance 2. Moderate increase in fecal load throughout the colon consistent with a component of fecal stasis. 3. Otherwise negative study Electronically signed by: Barrie Kurtz M.D. 06/23/2016 3:20 PM Dictated Date/Time: 06/23/2016 3:15 PM
[2016-06-23] MEDS: WARFARIN SOD 5 MG TAB PO SCH (15:44)
[2016-06-23 15:47] VITALS: BP 116/73; PULSE 57; TEMP 36.9; O2SAT 96
[2016-06-24 00:41] VITALS: BP 133/74; PULSE 67; TEMP 36.3; O2SAT 95
[2016-06-24 06:48] LABS: BASO % 0.1 %; BASO ABS # 0.01 K/uL (0-0.2); COMPLETE YES; HEMATOCRIT 40.4 % (37-47); IG% 1.2 %; MEAN CELL VOLUME 92.4 fL (80-100); MEAN CORPUSCULAR HEMOGLOBIN 31.6 pg (25-34); MEAN CORPUSCULAR HGB CONC 34.2 g/dl (32-36); MEAN PLATELET VOLUME 9.4 fL (7.4-10.4); MONO % 4.1 %; NEUT % 84.6 %; PLATELET COUNT 262 K/uL (130-400); RED BLOOD COUNT 4.37 M/uL (4.2-5.4); WHITE BLOOD COUNT 9.03 K/uL (4.8-10.8)
[2016-06-24 07:10] LABS: INR 4.5 (0.9-1.1); PROTHROMBIN TIME (PATIENT) 50.9 SECONDS (9.0-12.0)
[2016-06-24 07:26] LABS: BUN/CREATININE RATIO 24.7 (10-20); CALCIUM 9.1 mg/dl (8.5-10.1); CREATININE 0.88 mg/dl (0.60-1.20)
[2016-06-24 08:00] VITALS: O2SAT 95
[2016-06-24] MEDS: PANTOprazole SOD 40 MG TAB PO SCH (08:04)
[2016-06-24] MEDS: ASPIRIN 81 MG ECTAB PO SCH (08:04)
[2016-06-24] MEDS: CYANOCOBALAMIN 500 MCG TAB (VIT B-12) PO SCH (08:04)
[2016-06-24] MEDS: FERROUS SULFATE 325 MG TAB PO SCH (08:05)
[2016-06-24] MEDS: PSYLLIUM 58.6% PWD PACK S\\F PO SCH (08:05)
[2016-06-24] MEDS: LACTOBACILLUS ACIDOPHILUS (FLORANEX) TAB PO SCH (08:05)
[2016-06-24 08:06] VITALS: BP 120/72; PULSE 67; TEMP 36.5; O2SAT 96
[2016-06-24] MEDS: NICOTINE 7 MG/24 HR TDSY EXT SCH (08:06)
[2016-06-24] MEDS ORDERED: PRED10TA PO (08:11)
--- NOTE | 2016-06-24 08:17 | Discharge Instructions ---
Discharge Instructions Date of Service June 24, 2016. Admission Reason for Admission: Rt Eye Pain And Decreased Vision For 1 Day Discharge Discharge Diagnosis / Problem: Optic Neuritis Discharge Goals Goal(s): Decrease discomfort, Improve function, Increase independence, Improve disease control Activity Recommendations Activity Limitations: resume your previous activity Lifting Limitations: gradually increase as tolerated Exercise/Sports Limitations: gradually increase as tolerated May Resume Sexual Activity: when tolerated Shower/Bathe: no limitations Driving or Machine Use: DO NOT DRIVE . Instructions / Follow-Up Instructions / Follow-Up You were admitted to [facility] with change in vision of the right eye and diagnosed with optic neuritis. During your stay here you were treated with intravenous steroids x 3 days and then were transitioned to a prednisone taper. Imaging studies which were completed include CT abdomen for abdominal pain and possible Crohns flare, and were improved compared to previous studies. Continue taking all medications as prescribed Continue Prednisone taper as follows: Take 40 mg (4 tab) x 3 days, then 30 mg (3 tab) x 3 days, then 20 mg(2 days) x 3 days, then 10 mg (1 tab) x 3 days then stop. Finish course on 07/06/16 Follow up: Follow up with your Primary Care Provider within 1 week. Follow up with ophthalmology within 1-2 weeks. Follow up with GI within 4 weeks. Current Hospital Diet Patient's current hospital diet: AHA Diet (Heart Healthy) Discharge Diet Recommended Diet: AHA Diet (Heart Healthy) Procedures Procedures Performed: None Pending Studies Studies pending at discharge: no Laboratory Results Hemoglobin A1c Test 06/21/16 10:55 Range/Units Estimated Average Glucose 114 mg/dl Hemoglobin A1c 5.6 4.5-5.6 % Lipid Panel Test 06/22/16 06:25 Range/Units Triglycerides Level 166 H 0-150 mg/dl Cholesterol Level 254 H 0-200 mg/dl HDL Cholesterol 62 mg/dl Cholesterol/HDL Ratio 4.1 LDL Cholesterol, Calculated 159 mg/dl Medical Emergencies . Who to Call and When: Medical Emergencies: If at any time you feel your situation is an emergency, please call 911 immediately. . Non-Emergent Contact Non-Emergency issues call your: Primary Care Provider Call Non-Emergent contact if: you have a fever, temperature is above 100.5, your pain is not controlled, your pain is worsening, your pain is unusual for you, your pain is concerning you, you have any medication questions . Past History Medical & Surgical History: (1) Optic neuritis . "Provider Documentation" section prepared by Patricia Shepard. . VTE Core Measure Inpt VTE Proph given/why not?: Warfarin (Coumadin), T.E.D. Stockings, SCD's
[2016-06-24] MEDS: ACETAMINOPHEN 325 MG TAB PO PRN (09:30)
--- NOTE | 2016-06-24 09:45 | Gastrointestinal Consultation ---
Gastrointestinal Consultation Date of Consultation: June 24, 2016 Attending Physician: Dr. Mason Consulting Physician: Dr. Desir/VARSHA Pop Reason for Consultation: Crohn's disease History of Present Illness Patient is a 61 year old female with a history of ileostenosing Crohn's disease with prior fistula and phlegmon with frequent hospital admissions for symptoms of abdominal pain, constipation and rectal bleeding as she has been unable to obtain biologic therapy in the past due to lack of medical insurance. She has also been non-compliant with follow up outpatient appointments and has no- showed for every appointment made upon discharge from the hospital. Currently, however, she reports she is motivated to manage her chronic medical illness stating "I know I will always have Crohn's and I want to take care of it". During her last hospitalization for a Crohn's flare in early May, she was transferred to [facility] [place]. No records are available to review today but she reports that she was recommended to start Humira and she is interested in starting this medication as soon as possible to finally wean off corticosteroids. Most recent laboratory testing a WBC of 9.03, hemoglobin 13.8, hematocrit 40.4, platelets 262, sodium 140, potassium 4.0, chloride 108, carbon dioxide 24, BUN 22 and creatinine 0.88. ESR was noted to be elevated at 30. Most recent CT imaging from yesterday demonstrated normalizing ileum without evidence of fistula or phlegmon. In regard to symptoms, she reports mild RLQ pain that she rates 2/10 at present. The pain is localized and intermittent. She did have a small bowel movement this morning with small amount of bright red blood in stool. No bleeding independent of bowel movements. No nausea or vomiting, fever or chills or weakness. She is having improvement in her vision which was felt possibly related to optic neuritis. No significant join pain or skin rashes reported. Patient is now insured with medical assistance. She is hoping to start Humira as soon as possible to prevent further need for steroid therapy and hospitalizations. Past Medical/Surgical History Medical Problems: (1) Diarrhea Status: Acute (2) Epistaxis Status: Acute (3) Fistula of intestine, excluding rectum and anus Status: Acute (4) Multiple pulmonary emboli Status: Acute (5) Optic neuritis Status: Acute (6) Partial small bowel obstruction Status: Acute (7) Rectal bleed Status: Acute (8) RLQ abdominal pain Status: Acute (9) Small bowel obstruction Status: Acute (10) Small bowel obstruction Status: Acute (11) Substernal chest pain Status: Acute (12) Subtherapeutic international normalized ratio (INR) Status: Acute (13) 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 Past Medical History: 1. Crohn's ileitis with complication 2. PE 3. Epistaxis 4. Small bowel obstruction 5. Cellulitis Past Surgical History: None Family History Patient reports no known family medical history. Negative for GI malignancy or IBD Social History Smoking Status: Current Every Day Smoker Alcohol Use: none Drug Use: none Marital Status: Housing Status: lives with family (with her sister at present) Occupation Status: unemployed Allergies Coded Allergies: No Known Allergies (Unverified , 06/21/16) Current Medications Home Meds and Scripts Medications Dose Route/Sig Max Daily Dose Days Date Category Dose Instructions Prednisone 10 Mg Tab 10 Mg PO UD 12 06/24/16 Rx Take 40 mg (4 tab) x 3 days, then 30 mg (3 tab) x 3 days, then 20 mg(2 days) x 3 days, then 10 mg (1 tab) x 3 days. Coumadin (Warfarin Sod) 5 Mg Tab 5 Mg PO DAILY@16 06/12/16 Rx Digestive Advantage Probi (Probiotic Product) 1 Chw Chw 1 Cap PO DAILY 06/07/16 Reported Trazodone (Trazodone HCl) 50 Mg Tab 50 Mg PO HS PRN 06/07/16 Reported Ra Omeprazole (Omeprazole) 20 Mg Tab 20 Mg PO QAM 06/07/16 Reported Prednisone 5 Mg Tab 5 Mg PO UD 05/03/16 Rx 8 tablets per day x one week, decrease by 1 tablet every week until complete Citrucel (Methylcellulose (Laxative)) 500 Mg Tab 500 Mg PO BID 09/06/15 Reported Vitamin B12 (Cyanocobalamin) 1,000 Mcg Tab 1,000 Mcg PO DAILY 09/06/15 Reported Iron (Ferrous Sulfate) 325 Mg Tab 325 Mg PO DAILY 09/06/15 Reported Aspirin Ec (Aspirin) 81 Mg Tab 81 Mg PO DAILY 09/06/15 Reported Review of Systems See HPI for pertinent positives & negatives. A total of 10 systems reviewed and were otherwise negative. Physical Exam Date Time Temp Pulse Resp B/P Pulse Ox O2 Delivery O2 Flow Rate FiO2 06/24/16 08:06 36.5 67 20 120/72 96 Room Air 06/24/16 00:41 36.3 67 20 133/74 95 Room Air 06/24/16 00:00 Room Air 06/23/16 16:45 Room Air 06/23/16 15:47 36.9 57 16 116/73 96 Room Air General Appearance: WD/WN, no apparent distress Eyes: EOMI ENT: hearing grossly normal Neck: supple Respiratory/Chest: lungs clear, normal breath sounds, no respiratory distress Cardiovascular: regular rate, rhythm, no gallop, no murmur Abdomen: normal bowel sounds, non tender, soft Extremities: normal range of motion, normal inspection Neurologic/Psych: alert, normal mood/affect, oriented x 3 Skin: warm/dry Laboratory Results Last 24 Hours Test 06/24/16 06:23 White Blood Count 9.03 K/uL Red Blood Count 4.37 M/uL Hemoglobin 13.8 g/dL Hematocrit 40.4 % Mean Corpuscular Volume 92.4 fL Mean Corpuscular Hemoglobin 31.6 pg Mean Corpuscular Hemoglobin Concent 34.2 g/dl Platelet Count 262 K/uL Mean Platelet Volume 9.4 fL Neutrophils (%) (Auto) 84.6 % Lymphocytes (%) (Auto) 10.0 % Monocytes (%) (Auto) 4.1 % Eosinophils (%) (Auto) 0.0 % Basophils (%) (Auto) 0.1 % Neutrophils # (Auto) 7.64 K/uL Lymphocytes # (Auto) 0.90 K/uL Monocytes # (Auto) 0.37 K/uL Eosinophils # (Auto) 0.00 K/uL Basophils # (Auto) 0.01 K/uL RDW Standard Deviation 50.8 fL RDW Coefficient of Variation 14.9 % Immature Granulocyte % (Auto) 1.2 % Immature Granulocyte # (Auto) 0.11 K/uL Prothrombin Time 50.9 SECONDS Prothromb Time International Ratio 4.5 Sodium Level 140 mmol/L Potassium Level 4.0 mmol/L Chloride Level 108 mmol/L Carbon Dioxide Level 24 mmol/L Anion Gap 8.0 mmol/L Blood Urea Nitrogen 22 mg/dl Creatinine 0.88 mg/dl Est Creatinine Clear Calc Drug Dose 86.3 ml/min Estimated GFR () 81.6 Estimated GFR (Non- 70.4 BUN/Creatinine Ratio 24.7 Random Glucose 122 mg/dl Calcium Level 9.1 mg/dl Impression Patient is a 61 year old female with a history of ileostenosing Crohn's disease with prior fistula, SBO and phlegmon admitted with right eye pain and RLQ abdominal pain and constipation. Plan 1. Okay to discharge from GI standpoint. 2. Patient to go home on a short Prednisone taper per discharge summary. 3. Long discussion with the patient in regard to risks vs benefits of medical non-adherence in regard to maintenance therapy for Crohn's disease. She is interested in starting Humira. I have reviewed the risks vs benefits of treatment as well possible side effects including but not limited to: joint pain and swelling vs headaches vs injection site swelling and erythema vs increased risk of infection, sore throats, URIs and rare but serious risks such as: CHF, angioedema, skin cancer, and lymphoma. She did review the consent to treat form and signed at the bedside. She also signed the [employer] Enrollment Form to allow her access to in home injection training. I have provided her with outpatient laboratory orders for Hep B and TB testing. Will begin authorization for Humira through her insurance with hope that she can begin treatment prior to completion of her Prednisone taper. Recommend patient update her immunizations and this can be coordinated through her PCP's office. No live vaccines. 4. She should be seen in our office within 4 weeks for ongoing medical management and close follow up. Agree with VARSHA Pop as above Abd: Soft, NT, ND, +BS Agree with Initiation of Humira therapy for chronic management of patient's Crohn's Disease. Scheduled for followup in our office
--- NOTE | 2016-06-24 12:02 | Discharge Summary ---
Discharge Summary Date of Service June 24, 2016. Discharge Summary Admission Date: June 21, 2016 at 15:36 Discharge Date: June 24, 2016 Discharge Disposition: Home Principal Diagnosis: Optic Neuritis Problems/Secondary Diagnoses: Crohns disease, constipation, morbid obesity, hx of bilateral PE on anticoagulation, hyponatremia, low TSH Procedures: CHEST ONE VIEW PORTABLE 06/21/16 IMPRESSION: No acute cardiopulmonary findings. CT OF THE ORBITS WITHOUT CONTRAST 06/21/16 IMPRESSION: No significant abnormality of the orbits on unenhanced CT. No retrobulbar hematoma. Globes intact. Brain MRI WITH AND WITHOUT CONTRAST 06/21/16 IMPRESSION: 1. Mild thickening with mild abnormal signal and enhancement within the right optic nerve. There is also minimal inflammatory change within the right retrobulbar fat. Findings favor an optic neuritis. 2. There are few punctate foci of T2 hyperintensity seen within the periventricular and subcortical white matter of the supratentorial brain. The pattern favors mild microvascular ischemic change. However, a demyelinating process could also have a similar appearance. NECK MRA 06/21/16 IMPRESSION: Approximately 20-30% narrowing within the right carotid bulb. Otherwise, no significant stenosis, occlusion, or dissection identified within the carotid or vertebral arteries. BRAIN MRA 06/21/16 IMPRESSION: No significant stenosis, occlusion, or aneurysm within the tetlin of [place]. ABDOMEN AND PELVIS CT WITH IV AND ORAL CONTRAST 06/23/16 IMPRESSION: 1. Improved exam with a small bowel pattern now approaching a near normal/normal appearance 2. Moderate increase in fecal load throughout the colon consistent with a component of fecal stasis. 3. Otherwise negative study Consultations: Gastroenterology Ophthalmology Neurology Medication Reconciliation New Medications: Prednisone (Prednisone) 10 Mg Tab 10 MG PO UD for 12 Days, #30 TAB Take 40 mg (4 tab) x 3 days, then 30 mg (3 tab) x 3 days, then 20 mg(2 days) x 3 days, then 10 mg (1 tab) x 3 days. Continued Medications: Aspirin (Aspirin Ec) 81 Mg Tab 81 MG PO DAILY Cyanocobalamin (Vitamin B12) 1,000 Mcg Tab 1000 MCG PO DAILY Ferrous Sulfate (Iron) 325 Mg Tab 325 MG PO DAILY Methylcellulose (Laxative) (Citrucel) 500 Mg Tab 500 MG PO BID Omeprazole (Ra Omeprazole) 20 Mg Tab 20 MG PO QAM Probiotic Product (Digestive Advantage Probi) 1 Chw Chw 1 CAP PO DAILY Trazodone Hcl (Trazodone) 50 Mg Tab 50 MG PO HS PRN for Sleep, TAB Warfarin Sod (Coumadin) 5 Mg Tab 5 MG PO DAILY@16, #30 TAB 3 Refills Discontinued Medications: Prednisone (Prednisone) 5 Mg Tab 5 MG PO UD, #165 TAB 8 tablets per day x one week, decrease by 1 tablet every week until complete Discharge Exam The patient was seen and examined this morning. Pt reports feeling much better today and that her vision is improving. Abdominal pain is mildly present today. She has had two bowel movements yesterday, denies nausea or vomiting. She is requesting to see GI if possible, as she had an outpatient visit scheduled for today at 1pm but it was cancelled due to her admission yesterday. She denies any new or acute complaints. ROS: Constitutional: No fever, sweats or chills Eyes: No diplopia, no worsening or blurred vision ENT: normal hearing, no trouble swallowing Respiratory: No cough, sputum, dyspnea at rest or on exertion Cardiovascular: No chest pain, tightness or palpitations Abdomen: See HPI Musculoskeletal: No joint pain, calf pain, swelling Neurologic: No weakness, numbness/tingling, or balance problems Psychiatric: No anxiety or depression Skin: No rash or itch Physical Exam: General: awake, alert, no apparent distress, morbidly obese Head: Normocephalic, atraumatic ENT: PERRL, EOMI, no pharyngeal exudate, mucous membranes moist Chest: Clear to auscultation, on room air, no adventitious breath sounds Cardiac: Regular rate and rhythm, + systolic murmur Grade II/V, no JVD, normal peripheral pulses, good capillary refill Abdominal: NABS x 4 quadrants, soft, nontender to palpation, no rebound, guarding or tenderness Extremities: Normal inspection, mild peripheral edema without pitting, no erythema, calfs nontender to palpation Psych: Normal mood and affect Neuro: AAO x 3, strength intact bilaterally and related 5/5, no motor deficits, speech is clear, no peripheral sensory deficits Hospital Course H&P per Jeremy Barnard MD HISTORY OF PRESENT ILLNESS: The patient is a 61-year-old white female with a significant past medical history of bilateral PE, on Coumadin, bowel obstruction, cellulitis, Crohn disease, rectal bleeding, bowel obstruction came into the hospital Emergency Department because of the above chief complaint. The patient reports her left chest pain started from this morning. Her chest pain was 10/10. Having some difficulty breathing. History of blood clot in the lung recently, has been on Coumadin. She was reported INR was 2.3, 3 days ago. When the ED physician examined her, she has no difficulty breathing; however, reported the right eye bothering her. She cannot open eyes and it hurts when moves. She states she does not remember any scratches to eye and denied wearing contact lens. She stated it is making her vision fuzzy. History of Crohn disease. The patient also reports some small headache, some abdominal pain, nauseation. The patient denied loss of conscious, headache. Denied fever and chills. Denied diaphoresis. Denied cough, chest pain, palpitations. Denied lower extremity swellings. Denied abdominal pain, diarrhea, constipation or blood in the stool. Denied dysuria urgency or frequencies. PHYSICAL EXAMINATION: VITAL SIGNS: Temperature is 36.7, pulse 97, respiration rate 20, blood pressure 176/86, pulse ox was 97% on room air. GENERAL: The patient is a white female, awake, alert and orientated. No acute distress, conversational, follows all commands. HEAD: Normocephalic. EYES: Pupils equal, round responds to light. EARS: Ear was normal. NOSE: Normal. NECK: Supple. Thyroid no enlargement. Trachea midline. LUNGS: Decreased breathing sounds. There were no wheezing, rhonchi or crackles. HEART: Regular rhythm S1, S2, has no murmur. Pulse was symmetric and normal. ABDOMEN: Soft, nontender. Bowel sounds positive. No guarding. No rebounds. No masses. MUSCULOSKELETAL: Chest examination has no obvious tenderness in the back on inspection, there was no any obvious abnormalities. There was no CVA tenderness to palpation, no joint edema. GENITOURINARY AND RECTAL: Deferred. NEUROLOGIC: No motor deficits. Cranial nerve through XII was intact. There was no deficits. 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 SKIN: Has no rashes. Hospital Course 61 yo F with PMHx of Crohns disease, diverticulosisi, recent small bowel obstruction and hemorrhoids, hx PE approximately 2 months ago, admitted for optic neuritis of the right eye. Ophthalmology was consulted and the patient was treated with IV Solu-Medrol 1000mg x 3 days and then was transitioned to prednisone taper, last date of taper will be on 07/06/16. She was seen by GI while admitted she has recurrent history of Crohn's disease and had mild abdominal pain, although his CT of the abdomen and pelvis was negative for acute flare. GI has recommended the initiation of Humira for which the process has been started, and follow-up in 4 weeks. Optic neuritis - Was administered Solumedrol IV 1000mg in the ED. - Inflammatory markers are elevated: CRP =0.55 and ESR=30 - Ophthalmology on board, appreciate recommendations- finished IV Solu-Medrol 1000mg x 3 days and then was transitioned to prednisone taper, last date of taper will be on 07/06/16. - Neurology consultation- appreciate recs: - MRI neck and head were obtained - negative other than approximately 20-30% narrowing within the right carotid bulb. - Brain MRI w/wo contrast showing mild thickening with mild abnormal signal and enhancement within the right optic nerve. There is also minimal inflammatory change within the right retrobulbar fat. Findings favor an optic neuritis. There are few punctate foci of T2 hyperintensity seen within the periventricular and subcortical white matter of the supratentorial brain. The pattern favors mild microvascular ischemic change. However, a demyelinating process could also have a similar appearance. Hyponatremia - Na= 134, borderline and likely to resolve with diet and fluids Hx Pe from previous admission - Continue on coumadin - INR currently therapeutic at 1.8 Crohn disease, diverticulosis, recent small bowel, obstruction and hemorrhoids. - The patient has previously had multiple bouts and admissions regarding this, she is now reporting a left sided abdominal and flank burning and pain which is mild. She says this is how her other acute flares have started. The patient is already on IV steroids for the optic neuritis so this should cover any type of acute flare of Crohn's disease. Her last bowel movement was yesterday morning which was formed and brown. Can consider a CT of the abdomen if her symptoms worsen but for now clinically stable. Hypothyroidism - TSH is low at 0.108, will check T3 and T4 - Patient will require follow-up with her PCP discuss low TSH levels and continue to have levels monitored. DVT ppx: teds, scds, on coumadin CODE STATUS: Full code Disposition: From home, living with her sister, no CM needs anticipated, discharge to home today Total Time Spent: Greater than 30 minutes This includes examination of the patient, discharge planning, medication reconciliation, and communication with other providers. Discharge Instructions Please refer to the electronic Patient Visit Report (Discharge Instructions) for additional information. Follow-Up Follow up with your Primary Care Provider within 1 week. Follow up with ophthalmology within 1-2 weeks. Follow up with GI within 4 weeks. Additional Copies To Oc Sesay PA-C
[2016-06-24] MEDS ORDERED: CMD/25 PO (12:35)
[2016-06-24 15:41] VITALS: BP 127/77; PULSE 59; TEMP 36.5; O2SAT 96
[2016-07-17] MEDS ORDERED: VTMD1000 PO (11:08)
[2016-07-17] MEDS ORDERED: PRT40 PO (11:08)
[2016-07-17] MEDS ORDERED: PRED10TA PO (11:08)
[2016-07-17] MEDS ORDERED: CLC100 PO (11:08)
[2016-07-17] MEDS ORDERED: WARF4TAB PO (11:08)
[2016-07-17] MEDS ORDERED: ULT50X PO (11:08)
[2016-07-17] MEDS ORDERED: NICO14DI9 TD (11:08)
[2016-07-17] MEDS ORDERED: ADAL40KI SQ (11:13)
[2016-08-18] MEDS ORDERED: CMD75 PO (11:43)
[2016-08-18] MEDS ORDERED: LVNIS120 SQ (11:43)
[2016-08-18] MEDS ORDERED: PRD10 PO (11:52)
[2016-08-18] MEDS ORDERED: MRLP17X PO (11:52)
== END 2016-06-24 16:43 | disposition home health service (06) | DRG 123 ==
LOC: ENRESERVDT → ENRESERVTM → C.EDC 10:41 → C.2T 15:36 → C.MS2W 06-22 17:08
PROVIDERS: ADMIT Hospitalist; ATTEND Internal Medicine
DX: H46.9 Unspecified optic neuritis (principal); Z68.41 Body mass index [BMI] 40.0-44.9, adult; E87.1 Hypo-osmolality and hyponatremia; K50.90 Crohn's disease, unspecified, without complications; K59.00 Constipation, unspecified; K57.90 Diverticulosis of intestine, part unspecified, without perforation or abscess without bleeding; R07.89 Other chest pain; R94.6 Abnormal results of thyroid function studies; F17.210 Nicotine dependence, cigarettes, uncomplicated; R10.31 Right lower quadrant pain; H54.7 Unspecified visual loss; R79.1 Abnormal coagulation profile; Z79.82 Long term (current) use of aspirin; Z79.52 Long term (current) use of systemic steroids; Z87.19 Personal history of other diseases of the digestive system; Z79.899 Other long term (current) drug therapy; Z79.01 Long term (current) use of anticoagulants

== ENCOUNTER 2016-07-11 02:07 | Inpatient (IN) | payer OTHER ==
[~2016-07-11] VITALS: Ht 167.6 cm; Wt 109.3 kg
[~2016-07-11 02:07] MED LIST changes: +CMD/25 PO; -LVNIS120 SQ; -PRED-301 PO
[2016-07-11 02:29] VITALS: BP 149/90; PULSE 77; TEMP 36.7; O2SAT 93
[2016-07-11 02:30] VITALS: Ht 167.6 cm; Wt 109.3 kg
[2016-07-11] MEDS ORDERED: ONDANSETRON INJ 2 MG/ML 2 ML VIAL IV PRN (03:45)
[2016-07-11] MEDS ORDERED: CIPROFLOXACIN 400MG / 200ML D5W IV STA (03:48)
[2016-07-11] MEDS ORDERED: CLR10 PO (03:54)
[2016-07-11] MEDS ORDERED: VNTHFA/IN INH (03:54)
[2016-07-11] MEDS ORDERED: PATIENT'S HEIGHT AND/OR WEIGHT NEEDED SCH (04:00)
[2016-07-11] MEDS ORDERED: LEVOFLOXACIN / D5W 500 MG in PREMIXED IN D5W 100 ML IV SCH (04:00)
[2016-07-11] MEDS: METHYLPREDNISOLONE IV 40 MG in SYRINGE 0 ML IV SCH ×2 (04:31→10:46)
[2016-07-11] MEDS: NSS + 20MEQ KCL 1000ML 1,000 ML IV SCH ×3 (04:31→23:09)
[2016-07-11] MEDS: ACETAMINOPHEN IV 100 ML IV PRN (04:37)
--- NOTE | 2016-07-11 04:46 | History and Physical ---
History & Physical Date & Time of Service: Jul 11, 2016 at 04:46 Chief Complaint: Ileitis Primary Care Physician: Oc Sesay PA-C History of Present Illness Source: patient The patient is a 61-year-old female who presented to [facility] emergency department with complaint of right flank and right abdominal pain that began earlier in the day. She follows with Dr. Desir and Aby Pete for Crohn's disease, and asked that she be transferred to [facility] to continue in their care. CT of abdomen and pelvis performed at [facility] suggested ileitis with small bowel obstruction. The patient denies any recent travel or any sick exposures. She's had multiple admissions for small bowel obstruction to this hospital over the past 6 months, with her most recent admission being from June 21 to June 24. She has been diagnosed with pulmonary embolism in the past few months, and is presently taking warfarin. Past Medical/Surgical History Medical Problems: (1) Cellulitis Status: Resolved Family History Patient reports no known family medical history. Social History Smoking Status: Current Every Day Smoker Smokeless Tobacco Use: No Alcohol Use: none Drug Use: none Marital Status: Housing status: lives alone Occupational Status: unemployed Multi-Drug Resistant Organisms History of MDRO: No Allergies Coded Allergies: No Known Allergies (Unverified , 06/21/16) Home Medications Scheduled Albuterol Hfa (Ventolin Hfa), 2-4 PUFFS INH Q6H Aspirin (Aspirin Ec), 81 MG PO DAILY Cyanocobalamin (Vitamin B12), 1,000 MCG PO DAILY Ferrous Sulfate (Iron), 325 MG PO DAILY Loratadine (Claritin), 10 MG PO DAILY Methylcellulose (Laxative) (Citrucel), 500 MG PO BID Probiotic Product (Digestive Advantage Probi), 1 CAP PO DAILY Warfarin Sod (Coumadin), 5 MG PO DAILY@16 Warfarin Sod (Coumadin), 1 TAB PO DAILY Scheduled PRN Trazodone Hcl (Trazodone), 50 MG PO HS PRN for Sleep Review of Systems The patient denies lower extremity swelling, vision change, hearing change, sore throat, fevers, chills, sweats, weight change, blood in urine or stool, dysuria, urinary frequency or urgency, lightheadedness, dizziness, headache, memory loss, rash, abnormal bruising or bleeding, imbalance, focal or generalized weakness, numbness or tingling in arms or legs, arthralgias or myalgias, back or neck pain, night sweats, or allergy symptoms. The review of systems is otherwise negative other than for that already noted above, and at least 10 systems have been reviewed. Physical Exam Vital Signs Date Time Temp Pulse Resp B/P (MAP) Pulse Ox O2 Delivery O2 Flow Rate FiO2 07/11/16 02:29 36.7 77 18 149/90 (109) 93 Room Air The patient is awake, well-developed and adequately nourished, alert and oriented 3, normocephalic and atraumatic, lying in bed and in no acute distress. HEENT--PERRL, EOMI, mucous membranes and oropharynx dry. Neck--supple, no JVD or bruits, thyroid normal, trachea midline, no adenopathy. Heart--normal S1 and S2, no extra beats, no murmurs, rubs or gallops. Lungs--clear bilaterally with good air movement, no respiratory distress, no accessory muscle use. Abdomen--decreased bowel sounds and soft, generalized mild tenderness, mildly distended. Extremities--no cyanosis, clubbing or edema. There are good distal pulses b/l. Dermatologic--normal skin turgor, normal color, warm and dry, no abnormal lymph nodes, no rash. Neurologic--cranial nerves II through XII grossly intact. Rheumatologic--normal range of motion. Psychiatric--normal affect. Impression Assessment and Plan Recurrent small bowel obstruction/ileitis/Crohn's exacerbation--patient will be admitted to the medical floor. She'll be allowed sips of water. Place on IV fluids, Cipro and Flagyl IV, Zofran 4 mg IV every 6 hours when necessary, Protonix 40 mg IV daily. She did get Solu-Medrol 80 mg IV prior to leaving [facility], and will be continued at 40 mg IV every 6 [address]'ll consult Dr. Desir. Pulmonary embolism--continue warfarin after repeat INR here, INR [facility] was 3.4 , and was help any previous that 4.5. Optic neuritis--her most recent admission of June 21 to June 24 was when she was diagnosed. Has not been any official mention of multiple sclerosis. She does report that she thinks her GI symptoms began after she finished the prednisone taper from that admission. Insomnia--hold trazodone 50 mg by mouth at bedtime. Seasonal allergy--hold loratadine 10 mg by mouth daily. Level of Care Med/Surg Advanced Directives Existing Advance Directive: No Existing Living Will: No Existing Power of Core Man: No Resuscitation Status FULL RESUSCITATION VTE Prophylaxis VTE Risk Assessment Done? Y/N: Yes Risk Level: Not Assessed Given or contraindicated: Warfarin (Coumadin)
[2016-07-11] MEDS: METRONIDAZOLE / NSS 500 MG in PREMIXED NSS 100 ML IV SCH ×2 (04:56→11:37)
[2016-07-11] MEDS: MoRPHine SULFATE 2 MG/ML CARP IV PRN ×2 (05:43→07:49)
[2016-07-11 06:57] VITALS: BP 125/77; PULSE 63; TEMP 36.6; O2SAT 91
[2016-07-11] MEDS: NICOTINE 14 MG/24 HR TDSY TD SCH (08:45)
[2016-07-11] MEDS ORDERED: CIPROFLOXACIN / D5W 400 MG in PREMIXED IN D5W 200 ML IV SCH (09:00)
[2016-07-11] MEDS: PANTOprazole INJ 40 MG in SYRINGE 0 ML IV SCH (10:46)
--- NOTE | 2016-07-11 11:50 | PROGRESS NOTE ---
DATE: 07/11/2016 DATE: 07/11/2016. HISTORY OF PRESENT ILLNESS: Ms. Freeman is a 61-year-old obese white female with a history of Crohn's disease, recurring small bowel obstructions, optic neuritis, seasonal allergies, and a history of DVT/PE (diagnosed in June 2016) who is chronically on Coumadin. She presented acutely to [facility] complaining of right flank pain and abdominal pain consistent with a recurrent small-bowel obstruction. She was subsequently transferred to our facility for followup with Dr. Desir and VARSHA Pop. They manage her Crohn's disease. She is currently on bowel rest, and her abdominal pain has improved. She still has not passed any gas, but denies any nausea or vomiting. She feels as though her SBO is improving. Unfortunately, upon awakening this morning, she realized she was bleeding vaginally. This is a new problem for her. She is postmenopausal, and has not menstruated in at least 5-10 years. She has her uterus and ovaries intact, and does not take any hormone replacement therapy. The patient was last evaluated by her commercial retoucher approximately 20 years ago and has never had an abnormal Pap smear or prior gynecologic pathology. She further denies any history of colovaginal fistula and there was no evidence of that on most recent CT scans. MEDICATIONS: 1. Protonix 40 mg IV. 2. Nicoderm CQ 14 mg patch on q.a.m., off at bedtime. 3. Normal saline solution with 20 mEq KCl at 100 mL per hour. 4. Metronidazole 500 mg IV q. 8 hours. 5. Methylprednisolone 40 mg IV q. 6 hours. 6. Levofloxacin 500 mg IV q. 24 hours. 7. DuoNeb nebulizers q. 4 hours p.r.n. for shortness of breath. 8. Zofran p.r.n. 9. Acetaminophen p.r.n. 10. Diphenhydramine hydrochloride 25 mg IV q. 4 hours p.r.n. for itching. 11. Morphine sulfate 2-4 mg IV every 2 hours as needed. 12. She is normally on Coumadin, but that is currently on hold because of her supratherapeutic INR. ALLERGIES: NKDA. OBJECTIVE: VITAL SIGNS: Temperature is 36.6 degrees Celsius, pulse 63 and regular, respiratory rate is 14 and unlabored, blood pressure is 125/77, SPO2 is 91% on room air. GENERAL: The patient is in no acute distress. HEAD, EYES, EARS, NOSE, AND THROAT: Head is atraumatic, normocephalic. EOMs intact. Sclerae are anicteric. Facies symmetric. No perioral cyanosis. NECK: Without thyromegaly, lymphadenopathy or JVD. Carotid upstrokes +2 bilaterally without bruits. CHEST AND LUNGS: Clear to auscultation throughout all lung parekh, no wheezes, rales or rhonchi. CARDIOVASCULAR: S1 and S2 are regular without murmur, gallop or rub. PMI is nondisplaced. No lifts, heaves, or thrills. ABDOMINAL EXAMINATION: Bowel sounds are present, hyperactive. Abdomen is mildly distended. Tender to palpation in the right lower quadrant. No rebound tenderness. EXTREMITIES: Without clubbing, cyanosis or edema. NEUROLOGIC EXAMINATION: The patient is awake, alert, and oriented, pleasant and cooperative. Answers questions appropriately. Speech is clear. Normal movement in all 4 extremities. Gait pattern not assessed. PT/INR is pending. CBC with diff is pending. ASSESSMENT: 1. Longstanding history of Crohn's disease with flare. 2. Small-bowel obstruction, recurrent. 3. History of pulmonary embolism, currently with supratherapeutic INR. 4. Postmenopausal vaginal bleeding, uncertain etiology. Consider endometrial overgrowth in the presence of coagulopathy, could also consider colovaginal fistula. Need to consider endometrial pathology as well. PLAN: 1. Continue bowel rest. 2. Continue ice chips for the time being. 3. Continue supplemental IV fluids. 4. Continue current antibiotic regimen. 5. Continue morphine for pain control. 6. Monitor daily laboratories. 7. Consult gynecology regarding postmenopausal vaginal bleeding. 8. We will continue to follow closely. [facility]
--- NOTE | 2016-07-11 13:29 | Medical Consult ---
Consultation Note Date of Service Jul 11, 2016. Consultation Note Reason for consult: Crohn's flare HPI: 61 yo female with PMH sig for Crohn's disease, known to Dr. Desir admitted with abdominal pain. Per her report, and per recent GI consultation note, she has a long h/o poorly controlled Crohn's, complicated by poor compliance and lack of insurance, managed with chronic steroids - she tells me that she has been on steroids continuously since 2014 for management of her abdominal pain. Imaging from May shows terminal ileitis, SBO, and micoabscess; report of CT in June states that ileitis has resolved. She was recently hospitalized for Crohn's flare that was treated with steroids, and is still awaiting initiation of Humira. She completed rapid steroid taper on 07/06. She had relapse of her abdominal pain and loose stool yesterday afternoon. She denies abd distention , nausea, or vomiting. She presented to [facility], where she underwent CT which showed ileitis with SBO. Overnight, she received high doses of solumedrol. At present she is passing flatus, with minimal abdominal pain. She is markedly hungry and asking for food. PMH: PE on coumadin Morbid obesity Family History Patient reports no known family medical history. Social History Smoking Status: Current Every Day Smoker Smokeless Tobacco Use: No Alcohol Use: none Drug Use: none Marital Status: Housing status: lives alone Occupational Status: unemployed Multi-Drug Resistant Organisms History of MDRO: No Allergies Coded Allergies: No Known Allergies (Unverified , 06/21/16) Home Medications Scheduled Albuterol Hfa (Ventolin Hfa), 2-4 PUFFS INH Q6H Aspirin (Aspirin Ec), 81 MG PO DAILY Cyanocobalamin (Vitamin B12), 1,000 MCG PO DAILY Ferrous Sulfate (Iron), 325 MG PO DAILY Loratadine (Claritin), 10 MG PO DAILY Methylcellulose (Laxative) (Citrucel), 500 MG PO BID Probiotic Product (Digestive Advantage Probi), 1 CAP PO DAILY Warfarin Sod (Coumadin), 5 MG PO DAILY@16 Warfarin Sod (Coumadin), 1 TAB PO DAILY Scheduled PRN Trazodone Hcl (Trazodone), 50 MG PO HS PRN for Sleep Review of Systems The patient denies lower extremity swelling, vision change, hearing change, sore throat, fevers, chills, sweats, weight change, blood in urine or stool, dysuria, urinary frequency or urgency, lightheadedness, dizziness, headache, memory loss, rash, abnormal bruising or bleeding, imbalance, focal or generalized weakness, numbness or tingling in arms or legs, arthralgias or myalgias, back or neck pain, night sweats, or allergy symptoms. The review of systems is otherwise negative other than for that already noted above, and at least 10 systems have been reviewed. Physical Ex - H&P Physical Exam Vital Signs Obese, comfortable HEENT--PERRL, EOMI, mucous membranes and oropharynx dry. Neck--supple, no JVD or bruits, thyroid normal, trachea midline, no adenopathy. Heart--normal S1 and S2, no extra beats, no murmurs, rubs or gallops. Lungs--clear bilaterally with good air movement, no respiratory distress, no accessory muscle use. Abdomen-- very large pannus, non tender, normal BS, non distended Extremities--no cyanosis, clubbing or edema. There are good distal pulses b/l. Dermatologic--normal skin turgor, normal color, warm and dry, no abnormal lymph nodes, no rash. Neurologic--cranial nerves II through XII grossly intact. Rheumatologic--normal range of motion. Psychiatric--normal affect. No labs in [facility] Impression - H&P Impression Steroid dependent Crohn's Admit with recurrent pain after abruptly discontinuing steroids Imaging suggestive of SBO - She likely had a flare due to her abrupt discontinuation of steroids. I am hoping that resumption of a low dose of steroids, with plans for a gradual taper , should be sufficient to control her symptoms - will change her steroids to 20 of prednisone; I will also add cipro to treat the likely possibility of bacterial overgrowth, as adjunct therapy for her Crohns. Her SBO is clinically resolved, although there is no imaging or labs in [facility] today. Will check plain films, request BMP and CRP. She appears well, and I feel comfortable advancing her diet to clears. - Will see her tomorrow; Dr. Desir to resume care on Wednesday. Attg addendum ( late entry): I reviewed abd films from this afternoon, which show marked dilation of large bowel loops; radiologist expressed concern for sigmoid volvulus. Marked dilation of intestine is marked change from CT on . However, she is pain free, passing (per her report) large amounts of flatus -- will continue clears, and plan to repeat plain films tomorrow. Plan CT if persistent dilation on tomorrow's film.
[2016-07-11 14:59] LABS: BUN/CREATININE RATIO 16.3 (10-20); C-REACTIVE PROTEIN 0.78 mg/dl (0-0.29); CALCIUM 8.3 mg/dl (8.5-10.1); CREATININE 1.3 mg/dl (0.60-1.20); POTASSIUM 4.3 mmol/L (3.5-5.1)
--- NOTE | 2016-07-11 15:10 | DIAGNOSTIC IMAGING REPORT ---
CHEST AND ABDOMEN 2 VIEWS HISTORY: pt with Crohn's, ct yesterday showed obstruction COMPARISON: Abdomen and pelvis CT 06/23/2016. FINDINGS: The lungs are clear. The heart is top normal in size. No pleural effusions. No pneumothorax. No pneumoperitoneum. No pneumatosis. Standard loop of bowel within the midabdomen measuring up to 8 cm in diameter. This may represent the sigmoid colon and raises the possibility of a sigmoid volvulus. There is also a distended loop of small bowel within the midabdomen. IMPRESSION: 1. No acute process within the chest. 2. Distended loops of bowel within the midabdomen. This could represent the sigmoid colon and is concerning for sigmoid volvulus. Correlation with recent CT is recommended for further evaluation. Electronically signed by: Deejay Jin M.D. 07/11/2016 3:08 PM Dictated Date/Time: 07/11/2016 3:05 PM
[2016-07-11 15:20] VITALS: BP 125/80; PULSE 68; TEMP 36.3; O2SAT 95
--- NOTE | 2016-07-11 17:56 | Progress Note ---
Progress Note Date of Service Jul 11, 2016. Progress Note Patient seen for her history of pmb. I have ordered a pelvic us to evaluate endometrial thickness. I will followup with pt once results back. I have dictated formal consult.
--- NOTE | 2016-07-11 18:25 | GYNECOLOGICAL CONSULTATION ---
DATE OF CONSULTATION: 07/11/2016 CHIEF COMPLAINT: Postmenopausal bleeding. HISTORY OF PRESENT ILLNESS: A 61-year-old 3, para 3 with the above chief complaint; who I am asked to see in consult by Dr. Navas/Pete Castillo PA-C. The patient reports onset of postmenopausal vaginal bleeding this a.m. when she went up to the bathroom and wiped. She saw bright red blood. It has persisted through the day; however, has decreased in amount. The color is still bright red. She is sure that it is vaginal. She notes menopause at age 56. She has not received gynecologic care due to lack of insurance. She denies any pain or cramping in her pelvis. She denies scratching or itching at her bottom. She denies any urinary symptoms. She does have a past history of urinary tract infection and has no symptoms that are similar. She does have Crohn's disease; however, reports that she is sure this is not rectal bleeding. She states she has been on prednisone for this disease for some time and when she tried to come off she begins with RLQ pain and symptoms of bowel obstruction, which is why she went to ER in [place] and then was sent here. OBSTETRICAL HISTORY: 3, para 3, x3. GYNECOLOGIC HISTORY: Menopause age 56, regular cycles up until then. No recent gynecologic care. No history of STDs or abnormal Pap smears. Tubal ligation for control in the 1970s. No recent sexual activity. PAST MEDICAL HISTORY: Crohn disease, bronchitis, pulmonary embolism. PAST SURGICAL HISTORY: Tubal ligation in the 1970s. ALLERGIES: None. MEDICATIONS: Albuterol, baby aspirin, loratadine, warfarin, history of prednisone. SOCIAL HISTORY: Current tobacco use approximately 10 cigarettes a day, down from 1 pack a day. No alcohol use, no street drug use. FAMILY HISTORY: No ovarian or colon cancer in her family, sister with bilateral mastectomy for inflammatory breast cancer in her early 50s, now alive and well in her mid 50s, daughter with history of hysterectomy for endometriosis, other 2 children alive and well. REVIEW OF SYSTEMS: The patient denies any problems with chest pain. She currently has some shortness of breath/cough related to her bronchitis. She denies any new bowel change. She reports her Crohn disease is managed by Dr. Desir and that the plan was to start her on Humira; however, she began with bronchitis and therefore that had to be delayed. She currently is passing gas and reports that she has only now been started on some liquid diet. She denies urinary symptoms. She denies vulvovaginal itching. She does report a history of yeast infections whenever she gets antibiotics. She reports history of chest pressure, for which she was diagnosed with pulmonary embolism and is now on Coumadin. PHYSICAL EXAMINATION. VITAL SIGNS: Temperature 36.3, pulse 68, respiratory rate 16, blood pressure 125/80, pulse ox 95% on room air. GENERAL: She is a pleasant-appearing female, sitting upright in the bed, in no acute distress, eating her clear liquid tray. PELVIC: Deferred at this time. NEUROLOGIC: Grossly intact. ASSESSMENT: Postmenopausal bleeding. PLAN: I discussed with patient that her postmenopausal bleeding would need evaluation to begin with a ENTRY CLERK ultrasound and possibly an endometrial biopsy. Her risk factors for endometrial cancer do include her obesity. I did discuss with her other risk factors for endometrial cancer. She does need a pelvic exam, however, given that she is eating right now we deferred that. My plan would be to see what the endometrial thickness was and then determine whether a bedside exam versus an office exam would be more appropriate. We would only be able to perform the endometrial biopsy in the office setting and she is aware that we could arrange that as an outpatient. This would not require any change in her Coumadin use. She is aware that I will follow up with her after I see the results of her pelvic ultrasound. ADEBAYO
[2016-07-11] MEDS: MoRPHine SULFATE 4 MG/ML 1 ML CARP\\VIAL IV PRN (19:39)
[2016-07-11] MEDS: CIPROFLOXACIN 500 MG TAB PO SCH (21:40)
--- NOTE | 2016-07-11 21:43 | DIAGNOSTIC IMAGING REPORT ---
ULTRASOUND OF THE PELVIS CLINICAL HISTORY: Postmenopausal bleeding. COMPARISON STUDY: Pelvic CT dated 06/23/2016. TECHNIQUE: Real-time, grayscale, and color flow sonography of the pelvis is performed both transabdominally and endovaginally. Images are reviewed in the transverse and longitudinal planes. The examination is degraded by large body habitus. FINDINGS: Uterus: The uterus is normal in size and heterogeneous in echotexture, measuring 5.9 x 2.9 x 3.8 cm. A Nabothian cyst is identified in the cervix. Endometrium: The endometrium is normal in appearance, and the endometrial stripe is top normal in thickness for age measuring between 3-4 mm Ovaries: The ovaries were not visualized. Pelvis: There is no free fluid in the cul-de-sac. No concerning adnexal lesion is seen. IMPRESSION: 1. No acute sonographic abnormality is seen in the pelvis. 2. The endometrial stripe measures between 3-4 mm. 3. The ovaries were not visualized. Electronically signed by: Frank Cortez M.D. 07/11/2016 9:41 PM Dictated Date/Time: 07/11/2016 9:39 PM
[2016-07-11 23:04] VITALS: BP 102/65; PULSE 70; TEMP 36.5; O2SAT 95
[2016-07-11] MEDS: DiphenhydrAMINE HCL 50 MG/ML VIAL IV PRN (23:09)
[2016-07-12 05:40] LABS: COMPLETE YES; EOS % 0.2 %; HEMATOCRIT 38.5 % (37-47); IG% 0.8 %; LYMPH % 16.8 %; MEAN CORPUSCULAR HEMOGLOBIN 31.6 pg (25-34); MEAN PLATELET VOLUME 9.8 fL (7.4-10.4); MONO % 6.6 %; NEUT % 75.6 %; PLATELET COUNT 218 K/uL (130-400); RED BLOOD COUNT 4.14 M/uL (4.2-5.4); WHITE BLOOD COUNT 6.55 K/uL (4.8-10.8)
[2016-07-12 05:57] LABS: INR 3.3 (0.9-1.1); PARTIAL THROMBOPLASTIN RATIO 1.7; PROTHROMBIN TIME (PATIENT) 36.7 SECONDS (9.0-12.0)
[2016-07-12 06:08] LABS: ALT/SGPT 23 U/L (12-78); AST/SGOT 10 U/L (15-37); BLOOD UREA NITROGEN 14 mg/dl (7-18); BUN/CREATININE RATIO 15.5 (10-20); CALCIUM 8.1 mg/dl (8.5-10.1); CARBON DIOXIDE 23 mmol/L (21-32); CHLORIDE 110 mmol/L (98-107); CREATININE 0.93 mg/dl (0.60-1.20); GLUCOSE 110 mg/dl (70-99); MAGNESIUM 1.9 mg/dl (1.8-2.4); POTASSIUM 4.3 mmol/L (3.5-5.1); SODIUM 141 mmol/L (136-145)
[2016-07-12 06:13] LABS: ALKALINE PHOSPHATASE 60 U/L (45-117)
[2016-07-12] MEDS ORDERED: NURSING DECISION MEDICATION ORDER SCH (06:15)
[2016-07-12] MEDS ORDERED: COUGH DROP (SUGAR FREE) LOZ 24 LOZ/1 BOX ONE (06:18)
[2016-07-12] MEDS: ALBUT/IPRATROP 3MG/0.5MG NEB 3 ML VIAL INH PRN ×3 (06:26→22:12)
[2016-07-12 06:27] VITALS: PULSE 72; O2SAT 96
[2016-07-12] MEDS ORDERED: COUGH DROP (SUGAR FREE) LOZ 24 LOZ/1 BOX PO PRN (06:30)
[2016-07-12 07:13] VITALS: BP 118/69; PULSE 71; TEMP 36.5; O2SAT 97
[2016-07-12] MEDS: MoRPHine SULFATE 4 MG/ML 1 ML CARP\\VIAL IV PRN (07:26)
[2016-07-12] MEDS: CIPROFLOXACIN 500 MG TAB PO SCH ×2 (09:07→20:52)
[2016-07-12] MEDS: NICOTINE 14 MG/24 HR TDSY TD SCH (09:07)
[2016-07-12] MEDS: NSS + 20MEQ KCL 1000ML 1,000 ML IV SCH ×2 (09:10→20:51)
--- NOTE | 2016-07-12 10:25 | DIAGNOSTIC IMAGING REPORT ---
ABDOMEN 2 VIEWS CLINICAL HISTORY: Generalized abdominal pain. FINDINGS: Supine and erect abdominal radiographs are compared to study performed 07/11/2016 and correlated with abdominal CT dated 06/23/2016. There is a nonobstructed abdominal bowel gas pattern. There has been significant improvement in distended gas-filled loops of bowel identified yesterday. Scattered air-fluid levels are suggested on the upright view. No intraperitoneal free air is seen. There are no abnormal abdominal calcifications. The skeletal structures are osteopenic. There is moderate lumbar spondylosis and scoliosis. The bony pelvis appears intact. The lung bases are clear as imaged. IMPRESSION: 1. There is no radiographic evidence of bowel obstruction. 2. There has been significant improvement in the distended gas-filled loops of bowel seen on yesterday's examination. Scattered air-fluid levels are suggested and this may represent a nonspecific enteritis. 3. No intraperitoneal free air is seen. Electronically signed by: Frank Cortez M.D. 07/12/2016 10:24 AM Dictated Date/Time: 07/12/2016 10:20 AM
--- NOTE | 2016-07-12 11:10 | Progress Note ---
Progress Note Date of Service Jul 12, 2016. Progress Note s/ pt denies any further vaginal bleeding reviewed results of US with patient and recommended bedside exam o/ pelvic, atrophy of vulva, ext genitalia but no lesions, vaginal tissues pale c/w atrophy. cx visualized and normal appearing. no polyps or lesion. no active bleeding. bme--uterus mobile normal size, shape and contour. no adnexal masses appreciated. a/ hd #2 seat nailer consult for PMB p/ Given endometrial lining on us is <4mm, I do not feel further evaluation of lining with endometrial biopsy is absolutely needed. However, if bleeding recurs would recommend biopsy. If bleeding recurs, plan biopsy as outpatient in our office. If bleeding does not recur, recommend routine seat nailer care that patient can also schedule in our office. Can call [phone] to be scheduled. Will sign off at this time. Call if any help needed in arranging any followup.
[2016-07-12] MEDS: PANTOprazole INJ 40 MG in SYRINGE 0 ML IV SCH (12:14)
[2016-07-12 14:45] VITALS: BP 127/79; PULSE 75; TEMP 36.7; O2SAT 95
--- NOTE | 2016-07-12 14:46 | Progress Note ---
Subjective Date of Service: Jul 12, 2016. Subjective Pt evaluation today including: conversation w/ patient, physical exam, lab review, review of studies, conversation w/ remediation consultant, review of inpatient medication list Pain: mild RLQ pain, always has this PO Intake: full liquids today Voiding: no voiding problems patient feeling better today, ready for advancing diet vision is normal (recovering from optic neuritis) she was supposed to start on Humira, but she got bronchitis so Humira was delayed reports her ileitis started after she stopped the Prednisone taper for her optic neuritis c/o bilateral ear pain Problem List Medical Problems: (1) Diarrhea Status: Acute (2) Epistaxis Status: Acute (3) Fistula of intestine, excluding rectum and anus Status: Acute (4) Multiple pulmonary emboli Status: Acute (5) Optic neuritis Status: Acute (6) Partial small bowel obstruction Status: Acute (7) Rectal bleed Status: Acute (8) RLQ abdominal pain Status: Acute (9) Small bowel obstruction Status: Acute (10) Small bowel obstruction Status: Acute (11) Substernal chest pain Status: Acute (12) Subtherapeutic international normalized ratio (INR) Status: Acute (13) 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 Review of Systems ENT: + hearing loss, + problem reported (ear pain bilaterally) Abdomen: + constipation (+ flatus, lots of flatus yesterday) All Other Systems: Reviewed and Negative Medications Current Inpatient Medications Medications (Trade) Dose Ordered Sig/Rachael Route Start Time Stop Time Status Last Admin Dose Admin Ondansetron HCl (Zofran Inj) 4 mg Q6H PRN IV 07/11/16 03:45 08/10/16 03:44 Acetaminophen 100 ml @ 400 mls/hr Q8H PRN IV 07/11/16 03:45 08/10/16 03:44 07/11/16 04:37 400 MLS/HR Diphenhydramine HCl (Benadryl Inj) 25 mg Q4H PRN IV 07/11/16 03:45 08/10/16 03:44 07/11/16 23:09 25 MG Pantoprazole Sodium 40 mg/ Syringe 10 ml @ 5 mls/min DAILY@11 IV 07/11/16 11:00 08/10/16 10:59 07/12/16 12:14 5 MLS/MIN Potassium Chloride/Sodium Chloride 1,000 ml @ 100 mls/hr Q10H IV 07/11/16 04:00 08/10/16 03:59 07/12/16 09:10 100 MLS/HR Morphine Sulfate (MoRPHine SULFATE INJ) 2 mg Q2H PRN IV 07/11/16 03:45 07/25/16 03:44 07/11/16 07:49 2 MG Morphine Sulfate (MoRPHine SULFATE INJ) 4 mg Q2H PRN IV 07/11/16 03:45 07/25/16 03:44 07/12/16 07:26 4 MG Albuterol/ Ipratropium (Duoneb) 3 ml Q4 PRN INH 07/11/16 04:00 08/10/16 03:59 07/12/16 06:26 3 ML Nicotine (Nicoderm Cq 14MG Patch) 1 patch QAM TD 07/11/16 09:00 08/10/16 08:59 07/12/16 09:07 1 PATCH Miscellaneous (Remove Nicoderm Patch) 1 ea HS N/A 07/11/16 21:00 08/10/16 20:59 07/11/16 21:41 1 EA Prednisone (PredniSONE TAB) 20 mg DAILY PO 07/12/16 09:00 08/11/16 08:59 07/12/16 09:07 20 MG Ciprofloxacin (Cipro Tab) 500 mg BID PO 07/11/16 21:00 07/21/16 20:59 07/12/16 09:07 500 MG Menthol (Nice Earl) 1 earl PRN PRN PO 07/12/16 06:30 08/11/16 06:29 Objective Vital Signs Date Time Temp Pulse Resp B/P (MAP) Pulse Ox O2 Delivery O2 Flow Rate FiO2 07/12/16 07:25 Room Air 07/12/16 07:13 36.5 71 16 118/69 (85) 97 Room Air 07/12/16 06:27 72 16 96 Room Air 07/11/16 23:04 36.5 70 16 102/65 (77) 95 Room Air 07/11/16 20:32 Room Air 07/11/16 15:20 36.3 68 16 125/80 (95) 95 Room Air 07/11/16 15:15 Room Air Physical Exam General Appearance: no apparent distress, + obese Eyes: normal inspection, EOMI, sclerae normal ENT: normal ENT inspection, hearing grossly normal, pharynx normal Neck: supple, no adenopathy, no JVD, trachea midline Respiratory/Chest: chest non-tender, lungs clear, normal breath sounds, no respiratory distress, no accessory muscle use Cardiovascular: regular rate, rhythm, no edema, no gallop, no JVD, no murmur Abdomen: normal bowel sounds, soft, no organomegaly, + tenderness (minimal RLQ) Extremities: normal range of motion, non-tender, normal inspection, no pedal edema, no calf tenderness Neurologic/Psychiatric: green house manager II-XII nml as tested, no motor/sensory deficits, alert, normal mood/affect, oriented x 3 Skin: normal color, warm/dry, no rash Laboratory Results ABDOMEN 2 VIEWS CLINICAL HISTORY: Generalized abdominal pain. FINDINGS: Supine and erect abdominal radiographs are compared to study performed 07/11/2016 and correlated with abdominal CT dated 06/23/2016. There is a nonobstructed abdominal bowel gas pattern. There has been significant improvement in distended gas-filled loops of bowel identified yesterday. Scattered air-fluid levels are suggested on the upright view. No intraperitoneal free air is seen. There are no abnormal abdominal calcifications. The skeletal structures are osteopenic. There is moderate lumbar spondylosis and scoliosis. The bony pelvis appears intact. The lung bases are clear as imaged. IMPRESSION: 1. There is no radiographic evidence of bowel obstruction. 2. There has been significant improvement in the distended gas-filled loops of bowel seen on yesterday's examination. Scattered air-fluid levels are suggested and this may represent a nonspecific enteritis. 3. No intraperitoneal free air is seen. Last 24 Hours Test 07/12/16 05:12 White Blood Count 6.55 K/uL Red Blood Count 4.14 M/uL Hemoglobin 13.1 g/dL Hematocrit 38.5 % Mean Corpuscular Volume 93.0 fL Mean Corpuscular Hemoglobin 31.6 pg Mean Corpuscular Hemoglobin Concent 34.0 g/dl Platelet Count 218 K/uL Mean Platelet Volume 9.8 fL Neutrophils (%) (Auto) 75.6 % Lymphocytes (%) (Auto) 16.8 % Monocytes (%) (Auto) 6.6 % Eosinophils (%) (Auto) 0.2 % Basophils (%) (Auto) 0.0 % Neutrophils # (Auto) 4.96 K/uL Lymphocytes # (Auto) 1.10 K/uL Monocytes # (Auto) 0.43 K/uL Eosinophils # (Auto) 0.01 K/uL Basophils # (Auto) 0.00 K/uL RDW Standard Deviation 48.5 fL RDW Coefficient of Variation 14.2 % Immature Granulocyte % (Auto) 0.8 % Immature Granulocyte # (Auto) 0.05 K/uL Prothrombin Time 36.7 SECONDS Prothromb Time International Ratio 3.3 Activated Partial Thromboplast Time 45.0 SECONDS Partial Thromboplastin Ratio 1.7 Sodium Level 141 mmol/L Potassium Level 4.3 mmol/L Chloride Level 110 mmol/L Carbon Dioxide Level 23 mmol/L Anion Gap 8.0 mmol/L Blood Urea Nitrogen 14 mg/dl Creatinine 0.93 mg/dl Est Creatinine Clear Calc Drug Dose 78.5 ml/min Estimated GFR () 76.3 Estimated GFR (Non- 65.9 BUN/Creatinine Ratio 15.5 Random Glucose 110 mg/dl Calcium Level 8.1 mg/dl Magnesium Level 1.9 mg/dl Total Bilirubin 0.4 mg/dl Direct Bilirubin < 0.1 mg/dl Aspartate Amino Transf (AST/SGOT) 10 U/L Alanine Aminotransferase (ALT/SGPT) 23 U/L Alkaline Phosphatase 60 U/L Total Protein 5.5 gm/dl Albumin 2.6 gm/dl Assessment and Plan 61 yo female with h/o Crohn's ileitis, frequent SBO, recent PE, optic neuritis - Crohn's ileitis with SBO: obstruction resolving on today's KUB diet advanced to full liquids continue Prednisone 20mg, Cipro 500mg BID Dr. Desir to see tomorrow - Recent PE: continue to to hold Coumadin, INR 3.3 today, likely resume tomorrow - Bilateral impacted cerumen: removed today - Optic neuritis: recovering well, no acute issues with sight, follows with ophthalmology Plan: discuss with Dr. Desir tomorrow, will need to start Humira outpatient
--- NOTE | 2016-07-12 15:26 | Progress Note ---
Progress Note Date of Service Jul 12, 2016. Progress Note Pt with mild abdominal pain that is more severe than baseline, approx 30 percent better than yesterday. She is sylvia full liquids without difficulty, and passing flatus. Date Time Temp Pulse Resp B/P (MAP) Pulse Ox O2 Delivery O2 Flow Rate FiO2 07/12/16 14:45 36.7 75 16 127/79 (95) 95 Room Air 07/12/16 07:25 Room Air 07/12/16 07:13 36.5 71 16 118/69 (85) 97 Room Air 07/12/16 06:27 72 16 96 Room Air 07/11/16 23:04 36.5 70 16 102/65 (77) 95 Room Air 07/11/16 20:32 Room Air Morbidly obese, comfortable appearing, walking around room Abd - mod large pannus epigastric distention Labs, imaging reviewed. CRP mildly increased, AXR shows dilated loops but markedly improved compared yesterday A/P: Steroid dependent Crohn's, pSBO - Clinically resolving. COnt full liquids tomorrow, then adv diet tomorrow as tolerated. AXR tomorrow. Cont pred 20, cipro.
[2016-07-12 16:31] VITALS: PULSE 65; O2SAT 97
[2016-07-12] MEDS: CARBAMIDE PEROXIDE 6.5% 15 ML BTL OT SCH (20:51)
[2016-07-12 22:12] VITALS: PULSE 70; O2SAT 96
[2016-07-12] MEDS: DiphenhydrAMINE HCL 50 MG/ML VIAL IV PRN (23:00)
[2016-07-12 23:17] VITALS: BP 113/72; PULSE 72; TEMP 36.8; O2SAT 94
[2016-07-13] MEDS: ACETAMINOPHEN IV 100 ML IV PRN (01:41)
[2016-07-13] MEDS: NSS + 20MEQ KCL 1000ML 1,000 ML IV SCH ×2 (05:31→15:55)
[2016-07-13 05:46] LABS: BASO % 0.1 %; BASO ABS # 0.01 K/uL (0-0.2); COMPLETE YES; EOS % 0.7 %; HEMATOCRIT 35.9 % (37-47); IG% 0.9 %; LYMPH % 23.9 %; LYMPH ABS # 1.67 K/uL (1.2-3.4); MEAN CELL VOLUME 93.7 fL (80-100); MEAN CORPUSCULAR HEMOGLOBIN 31.6 pg (25-34); MEAN CORPUSCULAR HGB CONC 33.7 g/dl (32-36); MEAN PLATELET VOLUME 9.4 fL (7.4-10.4); MONO % 8.6 %; NEUT % 65.8 %; PLATELET COUNT 199 K/uL (130-400); RED BLOOD COUNT 3.83 M/uL (4.2-5.4); WHITE BLOOD COUNT 6.98 K/uL (4.8-10.8)
[2016-07-13 06:01] LABS: INR 2.2 (0.9-1.1); PARTIAL THROMBOPLASTIN RATIO 1.4; PROTHROMBIN TIME (PATIENT) 24.4 SECONDS (9.0-12.0)
[2016-07-13 06:14] LABS: ALT/SGPT 24 U/L (12-78); AST/SGOT 13 U/L (15-37); BLOOD UREA NITROGEN 10 mg/dl (7-18); BUN/CREATININE RATIO 11.9 (10-20); CARBON DIOXIDE 25 mmol/L (21-32); CHLORIDE 114 mmol/L (98-107); CREATININE 0.86 mg/dl (0.60-1.20); GLUCOSE 79 mg/dl (70-99); POTASSIUM 4.1 mmol/L (3.5-5.1); SODIUM 146 mmol/L (136-145)
[2016-07-13 06:18] LABS: ALKALINE PHOSPHATASE 56 U/L (45-117)
[2016-07-13 07:14] VITALS: BP 112/73; PULSE 59; TEMP 36.6; O2SAT 94
[2016-07-13] MEDS: MoRPHine SULFATE 4 MG/ML 1 ML CARP\\VIAL IV PRN ×2 (08:01→10:55)
[2016-07-13] MEDS: CARBAMIDE PEROXIDE 6.5% 15 ML BTL OT SCH ×2 (08:03→20:58)
[2016-07-13] MEDS: CIPROFLOXACIN 500 MG TAB PO SCH ×2 (08:03→20:58)
[2016-07-13] MEDS: NICOTINE 14 MG/24 HR TDSY TD SCH (08:04)
[2016-07-13 09:49] VITALS: PULSE 69; O2SAT 98
[2016-07-13] MEDS: ALBUT/IPRATROP 3MG/0.5MG NEB 3 ML VIAL INH PRN ×2 (09:49→20:32)
--- NOTE | 2016-07-13 09:51 | Gastroenterology Progress Note ---
Progress Note Date of Service: Jul 13, 2016 Subjective Pt evaluation today including: conversation w/ patient, physical exam, chart review, lab review, conversation w/ sales representative consultant Spoke with Dr. Flores this morning. Recommended repeat x ray today due to dilated bowel loops on prior imaging to ensure further improvement prior to dietary advancement. She continues Prednisone 20 mg daily. Today, the patient reports improved symptoms. Denies any significant abdominal pain, nausea or vomiting or bloody stools. Tolerating diet. Review of Systems Constitutional: + see HPI Abdomen: + see HPI Psych: No problem reported Medications Current Inpatient Medications Medications (Trade) Dose Ordered Sig/Rachael Route Start Time Stop Time Status Last Admin Dose Admin Ondansetron HCl (Zofran Inj) 4 mg Q6H PRN IV 07/11/16 03:45 08/10/16 03:44 Acetaminophen 100 ml @ 400 mls/hr Q8H PRN IV 07/11/16 03:45 08/10/16 03:44 07/13/16 01:41 400 MLS/HR Diphenhydramine HCl (Benadryl Inj) 25 mg Q4H PRN IV 07/11/16 03:45 08/10/16 03:44 07/12/16 23:00 25 MG Pantoprazole Sodium 40 mg/ Syringe 10 ml @ 5 mls/min DAILY@11 IV 07/11/16 11:00 08/10/16 10:59 07/12/16 12:14 5 MLS/MIN Potassium Chloride/Sodium Chloride 1,000 ml @ 100 mls/hr Q10H IV 07/11/16 04:00 08/10/16 03:59 07/13/16 05:31 100 MLS/HR Morphine Sulfate (MoRPHine SULFATE INJ) 2 mg Q2H PRN IV 07/11/16 03:45 07/25/16 03:44 07/11/16 07:49 2 MG Morphine Sulfate (MoRPHine SULFATE INJ) 4 mg Q2H PRN IV 07/11/16 03:45 07/25/16 03:44 07/13/16 08:01 4 MG Albuterol/ Ipratropium (Duoneb) 3 ml Q4 PRN INH 07/11/16 04:00 08/10/16 03:59 07/12/16 22:12 3 ML Nicotine (Nicoderm Cq 14MG Patch) 1 patch QAM TD 07/11/16 09:00 08/10/16 08:59 07/13/16 08:04 1 PATCH Miscellaneous (Remove Nicoderm Patch) 1 ea HS N/A 07/11/16 21:00 08/10/16 20:59 07/12/16 20:51 1 EA Prednisone (PredniSONE TAB) 20 mg DAILY PO 07/12/16 09:00 08/11/16 08:59 07/13/16 08:03 20 MG Ciprofloxacin (Cipro Tab) 500 mg BID PO 07/11/16 21:00 07/21/16 20:59 07/13/16 08:03 500 MG Menthol (Nice Earl) 1 earl PRN PRN PO 07/12/16 06:30 08/11/16 06:29 Carbamide Peroxide (Earwax Removal Soln) 1 drops BID OT 07/12/16 21:00 07/16/16 20:59 07/13/16 08:03 1 DROPS Warfarin Sodium (Coumadin Tab) 5 mg DAILY@16 PO 07/13/16 16:00 08/12/16 15:59 Objective Vital Signs Date Time Temp Pulse Resp B/P (MAP) Pulse Ox O2 Delivery O2 Flow Rate FiO2 07/13/16 07:14 36.6 59 20 112/73 (86) 94 Room Air 07/13/16 07:00 Room Air 07/12/16 23:43 Room Air 07/12/16 23:17 36.8 72 16 113/72 (86) 94 Room Air 07/12/16 22:12 70 16 96 Room Air 07/12/16 16:31 65 16 97 Room Air 07/12/16 16:00 Room Air 07/12/16 14:45 36.7 75 16 127/79 (95) 95 Room Air Physical Exam General Appearance: no apparent distress Eyes: EOMI ENT: hearing grossly normal Neck: supple Respiratory/Chest: lungs clear, normal breath sounds, no respiratory distress Cardiovascular: regular rate, rhythm, no gallop, no murmur Abdomen: normal bowel sounds, non tender, soft Neurologic/Psych: alert, normal mood/affect, oriented x 3 Skin: warm/dry Laboratory Results Last 24 Hours Test 07/13/16 05:06 White Blood Count 6.98 K/uL Red Blood Count 3.83 M/uL Hemoglobin 12.1 g/dL Hematocrit 35.9 % Mean Corpuscular Volume 93.7 fL Mean Corpuscular Hemoglobin 31.6 pg Mean Corpuscular Hemoglobin Concent 33.7 g/dl Platelet Count 199 K/uL Mean Platelet Volume 9.4 fL Neutrophils (%) (Auto) 65.8 % Lymphocytes (%) (Auto) 23.9 % Monocytes (%) (Auto) 8.6 % Eosinophils (%) (Auto) 0.7 % Basophils (%) (Auto) 0.1 % Neutrophils # (Auto) 4.59 K/uL Lymphocytes # (Auto) 1.67 K/uL Monocytes # (Auto) 0.60 K/uL Eosinophils # (Auto) 0.05 K/uL Basophils # (Auto) 0.01 K/uL RDW Standard Deviation 50.0 fL RDW Coefficient of Variation 14.7 % Immature Granulocyte % (Auto) 0.9 % Immature Granulocyte # (Auto) 0.06 K/uL Prothrombin Time 24.4 SECONDS Prothromb Time International Ratio 2.2 Activated Partial Thromboplast Time 36.3 SECONDS Partial Thromboplastin Ratio 1.4 Sodium Level 146 mmol/L Potassium Level 4.1 mmol/L Chloride Level 114 mmol/L Carbon Dioxide Level 25 mmol/L Anion Gap 7.0 mmol/L Blood Urea Nitrogen 10 mg/dl Creatinine 0.86 mg/dl Est Creatinine Clear Calc Drug Dose 84.9 ml/min Estimated GFR () 83.9 Estimated GFR (Non- 72.4 BUN/Creatinine Ratio 11.9 Random Glucose 79 mg/dl Calcium Level 8.0 mg/dl Magnesium Level 2.0 mg/dl Total Bilirubin 0.3 mg/dl Direct Bilirubin < 0.1 mg/dl Aspartate Amino Transf (AST/SGOT) 13 U/L Alanine Aminotransferase (ALT/SGPT) 24 U/L Alkaline Phosphatase 56 U/L Total Protein 5.1 gm/dl Albumin 2.5 gm/dl Assessment and Plan Patient is a 61 year old female with a history of ileostenosing Crohn's disease with prior fistula and SBO admitted with steroid dependent disease with worsened abdominal pain. 1. Repeat abdominal x ray today. If continued improvement, can advance diet as tolerated. 2. Continue Prednisone 20 mg daily. 3. Plan to start Humira upon discharge. She has a pending appointment for injection training. 4. Continue supportive care. Agree with VARSHA Pop as above Abd: Soft, NT, ND, +BS Continue current therapy Start Humira QIAN upon discharge
--- NOTE | 2016-07-13 10:47 | DIAGNOSTIC IMAGING REPORT ---
ABDOMEN 2VIEW W/PA CHEST RTN CLINICAL HISTORY: Generalized abdominal pain. Prior abnormal x-ray. COMPARISON STUDY: 07/12/2016 FINDINGS: The erect chest reveals no free air.] Supine views the abdomen reveal scattered air-fluid levels. There are prominent upper central abdominal bowel loops, likely colonic. Degenerative changes are present within the spine. There are vascular calcifications present. IMPRESSION: Stable mildly prominent upper central abdominal bowel loops, likely colonic. No current evidence of significant obstruction. Scattered colonic air-fluid levels. No free air. Electronically signed by: Sacha Cash M.D. 07/13/2016 10:46 AM Dictated Date/Time: 07/13/2016 10:43 AM
[2016-07-13] MEDS: PANTOprazole INJ 40 MG in SYRINGE 0 ML IV SCH (10:48)
[2016-07-13 15:00] VITALS: BP 112/75; PULSE 71; TEMP 36.8; O2SAT 97
[2016-07-13] MEDS: WARFARIN SOD 5 MG TAB PO SCH (15:56)
--- NOTE | 2016-07-13 16:06 | Hospitalist Progress Note ---
Hospitalist Progress Note Date of Service Jul 13, 2016. Subjective Pt evaluation today including: conversation w/ patient Feeling better today, had large hard BM this AM and then some right sided abd pain which improved with morphine. No blood in stool. Also c/o right ear decreased hearing, some pain, and some blood coming out. Has been using ear wax drops and hoping to have it cleaned out. No CP or SOB All Other Systems: Reviewed and Negative Objective Vital Signs Date Time Temp Pulse Resp B/P (MAP) Pulse Ox O2 Delivery O2 Flow Rate FiO2 07/13/16 15:00 36.8 71 18 112/75 (87) 97 Room Air 07/13/16 09:49 69 14 98 Room Air 07/13/16 07:14 36.6 59 20 112/73 (86) 94 Room Air 07/13/16 07:00 Room Air 07/12/16 23:43 Room Air 07/12/16 23:17 36.8 72 16 113/72 (86) 94 Room Air 07/12/16 22:12 70 16 96 Room Air 07/12/16 16:31 65 16 97 Room Air 07/12/16 16:00 Room Air Physical Exam General Appearance: WD/WN, no apparent distress, + obese Eyes: normal inspection, EOMI, sclerae normal ENT: + pertinent finding (Right EAC with large amount of obstructing cerumen, scant dried blood. Currette to be obtained to berna hernandez) Neck: supple, trachea midline Respiratory/Chest: normal breath sounds (except one exp wheeze on right side), no respiratory distress, no accessory muscle use Cardiovascular: regular rate, rhythm, no edema, no gallop, no murmur Abdomen: normal bowel sounds, soft (morbidly obese, mild TTP RLQ without guarding or rebound tenderness) Extremities: non-tender, normal inspection, no pedal edema, no calf tenderness Neurologic/Psychiatric: alert, normal mood/affect, oriented x 3 Skin: normal color, warm/dry, no rash Laboratory Results Last 24 Hours Test 07/13/16 05:06 White Blood Count 6.98 K/uL Red Blood Count 3.83 M/uL Hemoglobin 12.1 g/dL Hematocrit 35.9 % Mean Corpuscular Volume 93.7 fL Mean Corpuscular Hemoglobin 31.6 pg Mean Corpuscular Hemoglobin Concent 33.7 g/dl Platelet Count 199 K/uL Mean Platelet Volume 9.4 fL Neutrophils (%) (Auto) 65.8 % Lymphocytes (%) (Auto) 23.9 % Monocytes (%) (Auto) 8.6 % Eosinophils (%) (Auto) 0.7 % Basophils (%) (Auto) 0.1 % Neutrophils # (Auto) 4.59 K/uL Lymphocytes # (Auto) 1.67 K/uL Monocytes # (Auto) 0.60 K/uL Eosinophils # (Auto) 0.05 K/uL Basophils # (Auto) 0.01 K/uL RDW Standard Deviation 50.0 fL RDW Coefficient of Variation 14.7 % Immature Granulocyte % (Auto) 0.9 % Immature Granulocyte # (Auto) 0.06 K/uL Prothrombin Time 24.4 SECONDS Prothromb Time International Ratio 2.2 Activated Partial Thromboplast Time 36.3 SECONDS Partial Thromboplastin Ratio 1.4 Sodium Level 146 mmol/L Potassium Level 4.1 mmol/L Chloride Level 114 mmol/L Carbon Dioxide Level 25 mmol/L Anion Gap 7.0 mmol/L Blood Urea Nitrogen 10 mg/dl Creatinine 0.86 mg/dl Est Creatinine Clear Calc Drug Dose 84.9 ml/min Estimated GFR () 83.9 Estimated GFR (Non- 72.4 BUN/Creatinine Ratio 11.9 Random Glucose 79 mg/dl Calcium Level 8.0 mg/dl Magnesium Level 2.0 mg/dl Total Bilirubin 0.3 mg/dl Direct Bilirubin < 0.1 mg/dl Aspartate Amino Transf (AST/SGOT) 13 U/L Alanine Aminotransferase (ALT/SGPT) 24 U/L Alkaline Phosphatase 56 U/L Total Protein 5.1 gm/dl Albumin 2.5 gm/dl Assessment and Plan 61 yo female with h/o Crohn's ileitis, frequent SBO, recent PE, optic neuritis, hypothyroidism, vitamin D deficiency, here with Crohn's ileitis with SBO. Crohn's ileitis with SBO: obstruction resolving, today's KUB with some fluid filled likely distended colon but clinically improved, moving bowels continue full liquids diet for today unless GI states otherwise continue Prednisone 20mg, Cipro 500mg BID Dr. Desir following-, will need to start Humira outpatient Recent PE: provoked by sedentary lifestyle, multipl ehospitalizations, autoimmune disease and inflammation- Coumadin held on admission due to supratherapeutic INR, INR 2.2 today - resume coumadin 5mg today and then may need to decrease dose given high INR on admission -follow INR Right impacted cerumen: removed today Right Optic neuritis: recovering well, no acute issues with sight, follows with ophthalmology, MRI brain not c/w MS as per Neuro -is supposed to f/u with Neuro as outpt Vit D deficiency-Vit D level 16 in 03/2016 and I do not see any supplementation in med rec -repeat Vit D level and supplement as needed Abnormal TSH-last admission was low with normal FT3 -repeat TSH now Proph-coumadin Dispo- to home in 1-2 days
[2016-07-13 20:33] VITALS: PULSE 70; O2SAT 97
[2016-07-13 23:21] VITALS: BP 113/70; PULSE 76; TEMP 36.6; O2SAT 97
[2016-07-13] MEDS: DiphenhydrAMINE HCL 50 MG/ML VIAL IV PRN (23:48)
[2016-07-14] MEDS: NSS + 20MEQ KCL 1000ML 1,000 ML IV SCH ×2 (01:49→11:54)
[2016-07-14] MEDS: ACETAMINOPHEN IV 100 ML IV PRN (06:13)
[2016-07-14 06:15] LABS: BASO % 0.2 %; BASO ABS # 0.01 K/uL (0-0.2); COMPLETE YES; EOS % 2.7 %; HEMATOCRIT 35.5 % (37-47); IG% 1.3 %; LYMPH % 28.3 %; LYMPH ABS # 1.57 K/uL (1.2-3.4); MEAN CELL VOLUME 94.7 fL (80-100); MEAN CORPUSCULAR HEMOGLOBIN 31.7 pg (25-34); MEAN CORPUSCULAR HGB CONC 33.5 g/dl (32-36); MEAN PLATELET VOLUME 9.1 fL (7.4-10.4); MONO % 9.7 %; NEUT % 57.8 %; PLATELET COUNT 199 K/uL (130-400); RED BLOOD COUNT 3.75 M/uL (4.2-5.4); WHITE BLOOD COUNT 5.54 K/uL (4.8-10.8)
[2016-07-14 06:23] LABS: INR 1.6 (0.9-1.1)
[2016-07-14 06:44] LABS: ALT/SGPT 24 U/L (12-78); AST/SGOT 14 U/L (15-37); BLOOD UREA NITROGEN 8 mg/dl (7-18); BUN/CREATININE RATIO 9.1 (10-20); CARBON DIOXIDE 27 mmol/L (21-32); CHLORIDE 113 mmol/L (98-107); CREATININE 0.85 mg/dl (0.60-1.20); GLUCOSE 76 mg/dl (70-99); POTASSIUM 4.3 mmol/L (3.5-5.1); SODIUM 145 mmol/L (136-145)
[2016-07-14 06:47] LABS: ALKALINE PHOSPHATASE 52 U/L (45-117)
[2016-07-14] MEDS ORDERED: ENOXAPARIN 1 MG/KG SQ SCH (07:30)
[2016-07-14] MEDS: MoRPHine SULFATE 4 MG/ML 1 ML CARP\\VIAL IV PRN ×3 (07:42→22:42)
[2016-07-14 07:43] VITALS: BP 152/86; PULSE 58; TEMP 36.5; O2SAT 97
[2016-07-14 08:04] VITALS: O2SAT 97
[2016-07-14] MEDS: CIPROFLOXACIN 500 MG TAB PO SCH ×2 (09:08→20:42)
[2016-07-14] MEDS: CARBAMIDE PEROXIDE 6.5% 15 ML BTL OT SCH ×2 (09:08→20:42)
[2016-07-14] MEDS: NICOTINE 14 MG/24 HR TDSY TD SCH (09:10)
[2016-07-14] MEDS: CHOLECALCIFEROL 1000 INTER.UNIT TAB PO SCH (09:13)
[2016-07-14] MEDS: ENOXAPARIN 120 MG/0.8 ML SYR SQ SCH ×2 (09:15→20:42)
--- NOTE | 2016-07-14 10:08 | Gastroenterology Progress Note ---
Progress Note Date of Service: Jul 14, 2016 Subjective Pt evaluation today including: conversation w/ patient, physical exam, chart review, lab review, review of studies, review of inpatient medication list Patient reports having a small bowel movement this morning. Passed a larger, hard stool yesterday. States she develops pain with bowel movements that subsides after the movement. She denies any abdominal pain, nausea or vomiting or bloody stools. Continues full liquid diet and Prednisone 20 mg daily. No other complaints. Review of Systems Constitutional: No fever, No chills Respiratory: No problem reported Cardiac: No problem reported Abdomen: + see HPI Psych: No problem reported Medications Current Inpatient Medications Medications (Trade) Dose Ordered Sig/Rachael Route Start Time Stop Time Status Last Admin Dose Admin Ondansetron HCl (Zofran Inj) 4 mg Q6H PRN IV 07/11/16 03:45 08/10/16 03:44 Acetaminophen 100 ml @ 400 mls/hr Q8H PRN IV 07/11/16 03:45 08/10/16 03:44 07/14/16 06:13 400 MLS/HR Diphenhydramine HCl (Benadryl Inj) 25 mg Q4H PRN IV 07/11/16 03:45 08/10/16 03:44 07/13/16 23:48 25 MG Pantoprazole Sodium 40 mg/ Syringe 10 ml @ 5 mls/min DAILY@11 IV 07/11/16 11:00 08/10/16 10:59 07/13/16 10:48 5 MLS/MIN Potassium Chloride/Sodium Chloride 1,000 ml @ 100 mls/hr Q10H IV 07/11/16 04:00 08/10/16 03:59 07/14/16 01:49 100 MLS/HR Morphine Sulfate (MoRPHine SULFATE INJ) 2 mg Q2H PRN IV 07/11/16 03:45 07/25/16 03:44 07/11/16 07:49 2 MG Morphine Sulfate (MoRPHine SULFATE INJ) 4 mg Q2H PRN IV 07/11/16 03:45 07/25/16 03:44 07/14/16 07:42 4 MG Albuterol/ Ipratropium (Duoneb) 3 ml Q4 PRN INH 07/11/16 04:00 08/10/16 03:59 07/13/16 20:32 3 ML Nicotine (Nicoderm Cq 14MG Patch) 1 patch QAM TD 07/11/16 09:00 08/10/16 08:59 07/14/16 09:10 1 PATCH Miscellaneous (Remove Nicoderm Patch) 1 ea HS N/A 07/11/16 21:00 08/10/16 20:59 07/13/16 20:58 1 EA Prednisone (PredniSONE TAB) 20 mg DAILY PO 07/12/16 09:00 08/11/16 08:59 07/14/16 09:08 20 MG Ciprofloxacin (Cipro Tab) 500 mg BID PO 07/11/16 21:00 07/21/16 20:59 07/14/16 09:08 500 MG Menthol (Nice Earl) 1 earl PRN PRN PO 07/12/16 06:30 08/11/16 06:29 Carbamide Peroxide (Earwax Removal Soln) 1 drops BID OT 07/12/16 21:00 07/16/16 20:59 07/14/16 09:08 1 DROPS Warfarin Sodium (Coumadin Tab) 5 mg DAILY@16 PO 07/13/16 16:00 08/12/16 15:59 07/13/16 15:56 5 MG Cholecalciferol (Vitamin D Tab) 2,000 inter.unit QAM PO 07/14/16 09:00 08/13/16 08:59 07/14/16 09:13 2,000 INTER.UNIT Enoxaparin Sodium (Lovenox Inj) 111 mg Q12 SQ 07/14/16 09:00 08/13/16 08:59 07/14/16 09:15 111 MG Objective Vital Signs Date Time Temp Pulse Resp B/P (MAP) Pulse Ox O2 Delivery O2 Flow Rate FiO2 07/14/16 08:07 Room Air 07/14/16 08:04 97 Room Air 07/14/16 07:43 36.5 58 16 152/86 (108) 97 Room Air 07/13/16 23:50 Room Air 07/13/16 23:21 36.6 76 16 113/70 (84) 97 Room Air 07/13/16 20:33 70 14 97 Room Air 07/13/16 16:00 Room Air 07/13/16 15:00 36.8 71 18 112/75 (87) 97 Room Air Physical Exam General Appearance: no apparent distress Eyes: EOMI ENT: hearing grossly normal Respiratory/Chest: lungs clear, normal breath sounds, no respiratory distress Cardiovascular: regular rate, rhythm, no gallop, no murmur Abdomen: normal bowel sounds, non tender, soft Extremities: no pedal edema Neurologic/Psych: alert, normal mood/affect, oriented x 3 Skin: warm/dry Laboratory Results Last 24 Hours Test 07/13/16 16:30 07/14/16 06:02 25-Hydroxy Vitamin D Total 12.4 ng/ml White Blood Count 5.54 K/uL Red Blood Count 3.75 M/uL Hemoglobin 11.9 g/dL Hematocrit 35.5 % Mean Corpuscular Volume 94.7 fL Mean Corpuscular Hemoglobin 31.7 pg Mean Corpuscular Hemoglobin Concent 33.5 g/dl Platelet Count 199 K/uL Mean Platelet Volume 9.1 fL Neutrophils (%) (Auto) 57.8 % Lymphocytes (%) (Auto) 28.3 % Monocytes (%) (Auto) 9.7 % Eosinophils (%) (Auto) 2.7 % Basophils (%) (Auto) 0.2 % Neutrophils # (Auto) 3.20 K/uL Lymphocytes # (Auto) 1.57 K/uL Monocytes # (Auto) 0.54 K/uL Eosinophils # (Auto) 0.15 K/uL Basophils # (Auto) 0.01 K/uL RDW Standard Deviation 51.1 fL RDW Coefficient of Variation 14.8 % Immature Granulocyte % (Auto) 1.3 % Immature Granulocyte # (Auto) 0.07 K/uL Prothrombin Time 18.0 SECONDS Prothromb Time International Ratio 1.6 Sodium Level 145 mmol/L Potassium Level 4.3 mmol/L Chloride Level 113 mmol/L Carbon Dioxide Level 27 mmol/L Anion Gap 5.0 mmol/L Blood Urea Nitrogen 8 mg/dl Creatinine 0.85 mg/dl Est Creatinine Clear Calc Drug Dose 85.9 ml/min Estimated GFR () 85.1 Estimated GFR (Non- 73.4 BUN/Creatinine Ratio 9.1 Random Glucose 76 mg/dl Calcium Level 8.0 mg/dl Magnesium Level 2.0 mg/dl Total Bilirubin 0.4 mg/dl Direct Bilirubin < 0.1 mg/dl Aspartate Amino Transf (AST/SGOT) 14 U/L Alanine Aminotransferase (ALT/SGPT) 24 U/L Alkaline Phosphatase 52 U/L Total Protein 5.1 gm/dl Albumin 2.6 gm/dl Free Thyroxine 1.27 ng/dl Free Triiodothyronine 2.90 pg/ml Assessment and Plan Patient is a 61 year old female with a history of ileostenosing Crohn's disease with prior fistula and SBO admitted with steroid dependent disease with worsened abdominal pain. 1. Recommend dietary advancement as tolerated. 2. Continue Prednisone 20 mg daily until discharge, then decrease by 5 mg weekly until complete. 3. Start Humira starter dose of 4 pens (160 mg) today, then 2 pens (80 mg) in one week, then one pen (40 mg) every other week thereafter. 4. Encouraged limitation of narcotic analgesics as these decrease GI motility and can worsen constipation. Started the patient on Colace 100 mg BID.
[2016-07-14] MEDS ORDERED: ADALIMUMAB 40 MG/0.8 ML SYR SQ ONE (10:30)
[2016-07-14] MEDS: PANTOprazole INJ 40 MG in SYRINGE 0 ML IV SCH (11:54)
[2016-07-14 15:12] VITALS: BP 122/78; PULSE 70; TEMP 36.7; O2SAT 97
[2016-07-14] MEDS: WARFARIN SOD 5 MG TAB PO SCH (16:07)
--- NOTE | 2016-07-14 16:09 | Hospitalist Progress Note ---
Hospitalist Progress Note Date of Service Jul 14, 2016. Subjective Pt evaluation today including: conversation w/ patient Feeling better today. Had 2 BMs today nonbloody. Still with some right sided abd pain but not bad. No N/V, sylvia full liquid diet.No vag bleeding. STarted Humira today All Other Systems: Reviewed and Negative Objective Vital Signs Date Time Temp Pulse Resp B/P (MAP) Pulse Ox O2 Delivery O2 Flow Rate FiO2 07/14/16 15:12 36.7 70 16 122/78 (93) 97 Room Air 07/14/16 08:07 Room Air 07/14/16 08:04 97 Room Air 07/14/16 07:43 36.5 58 16 152/86 (108) 97 Room Air 07/13/16 23:50 Room Air 07/13/16 23:21 36.6 76 16 113/70 (84) 97 Room Air 07/13/16 20:33 70 14 97 Room Air Physical Exam General Appearance: no apparent distress, + obese Eyes: normal inspection, sclerae normal ENT: + pertinent finding (Rt EAC still with some cerumen, no bleeding) Neck: trachea midline Respiratory/Chest: no respiratory distress, no accessory muscle use, + wheezing (scattered exp wheeze) Cardiovascular: regular rate, rhythm, no edema, no gallop, no murmur Abdomen: normal bowel sounds, soft (and morbidly obese), + tenderness (in RLQ without guarding or rebound) Extremities: non-tender, normal inspection, no pedal edema, no calf tenderness Neurologic/Psychiatric: alert, normal mood/affect, oriented x 3 Skin: normal color, warm/dry, no rash Laboratory Results Last 24 Hours Test 07/13/16 16:30 07/14/16 06:02 25-Hydroxy Vitamin D Total 12.4 ng/ml White Blood Count 5.54 K/uL Red Blood Count 3.75 M/uL Hemoglobin 11.9 g/dL Hematocrit 35.5 % Mean Corpuscular Volume 94.7 fL Mean Corpuscular Hemoglobin 31.7 pg Mean Corpuscular Hemoglobin Concent 33.5 g/dl Platelet Count 199 K/uL Mean Platelet Volume 9.1 fL Neutrophils (%) (Auto) 57.8 % Lymphocytes (%) (Auto) 28.3 % Monocytes (%) (Auto) 9.7 % Eosinophils (%) (Auto) 2.7 % Basophils (%) (Auto) 0.2 % Neutrophils # (Auto) 3.20 K/uL Lymphocytes # (Auto) 1.57 K/uL Monocytes # (Auto) 0.54 K/uL Eosinophils # (Auto) 0.15 K/uL Basophils # (Auto) 0.01 K/uL RDW Standard Deviation 51.1 fL RDW Coefficient of Variation 14.8 % Immature Granulocyte % (Auto) 1.3 % Immature Granulocyte # (Auto) 0.07 K/uL Prothrombin Time 18.0 SECONDS Prothromb Time International Ratio 1.6 Sodium Level 145 mmol/L Potassium Level 4.3 mmol/L Chloride Level 113 mmol/L Carbon Dioxide Level 27 mmol/L Anion Gap 5.0 mmol/L Blood Urea Nitrogen 8 mg/dl Creatinine 0.85 mg/dl Est Creatinine Clear Calc Drug Dose 85.9 ml/min Estimated GFR () 85.1 Estimated GFR (Non- 73.4 BUN/Creatinine Ratio 9.1 Random Glucose 76 mg/dl Calcium Level 8.0 mg/dl Magnesium Level 2.0 mg/dl Total Bilirubin 0.4 mg/dl Direct Bilirubin < 0.1 mg/dl Aspartate Amino Transf (AST/SGOT) 14 U/L Alanine Aminotransferase (ALT/SGPT) 24 U/L Alkaline Phosphatase 52 U/L Total Protein 5.1 gm/dl Albumin 2.6 gm/dl Free Thyroxine 1.27 ng/dl Free Triiodothyronine 2.90 pg/ml Assessment and Plan 61 yo female with h/o Crohn's ileitis, frequent SBO, recent PE, optic neuritis, hypothyroidism, vitamin D deficiency, here with Crohn's ileitis with SBO. Crohn's ileitis with SBO: obstruction resolved, moving bowels adv diet to regular today continue Prednisone 20mg daily till dc then decrease by 5mg weekly until done , continue Cipro 500mg BID Case following-, started Humira today and will need next dose of 80mg in 1 week, then 40mg every other week for maintenance Recent PE: provoked by sedentary lifestyle, multiple hospitalizations, autoimmune disease and inflammation- Coumadin held on admission due to supratherapeutic INR, INR 1.6 today/subtherapeutic -bridge with full dose Lovenox -continue coumadin 5mg daily -follow INR Right impacted cerumen: improved after removal Right Optic neuritis: recovering well, no acute issues with sight, follows with ophthalmology, MRI brain not c/w MS as per Neuro -is supposed to f/u with Neuro as outpt Vit D deficiency-Vit D level 16 in 03/2016 --> repeat now 12 -start 2000 units daily Abnormal TSH-last admission and again this admission was low with normal FT3 anf FT4--> subclinical hyperthyroidism -follow as outpatient -consider Endo referral as outpt Proph-coumadin, Lovenox Dispo- to home in 1-2 days
[2016-07-14] MEDS: DOCUSATE SODIUM 100 MG CAP PO SCH (20:42)
[2016-07-14 21:24] VITALS: PULSE 77; O2SAT 95
[2016-07-14] MEDS: ALBUT/IPRATROP 3MG/0.5MG NEB 3 ML VIAL INH PRN (21:24)
[2016-07-14 23:20] VITALS: BP 115/74; PULSE 69; TEMP 36.6; O2SAT 96
[2016-07-14] MEDS: DiphenhydrAMINE HCL 50 MG/ML VIAL IV PRN (23:39)
[2016-07-15] MEDS: MoRPHine SULFATE 2 MG/ML CARP IV PRN ×2 (06:18→12:00)
[2016-07-15 07:21] VITALS: BP 148/86; PULSE 60; TEMP 36.8; O2SAT 96
[2016-07-15] MEDS: PANTOprazole SOD 40 MG TAB PO SCH (09:13)
[2016-07-15] MEDS: CHOLECALCIFEROL 1000 INTER.UNIT TAB PO SCH (09:13)
[2016-07-15] MEDS: CARBAMIDE PEROXIDE 6.5% 15 ML BTL OT SCH ×2 (09:14→20:30)
[2016-07-15] MEDS: DOCUSATE SODIUM 100 MG CAP PO SCH ×2 (09:14→20:29)
[2016-07-15] MEDS: CIPROFLOXACIN 500 MG TAB PO SCH ×2 (09:14→20:29)
[2016-07-15] MEDS: ENOXAPARIN 120 MG/0.8 ML SYR SQ SCH (09:14)
[2016-07-15] MEDS: NICOTINE 14 MG/24 HR TDSY TD SCH (09:15)
[2016-07-15 10:33] VITALS: O2SAT 96
[2016-07-15 15:33] VITALS: BP 158/79; PULSE 75; TEMP 36.8; O2SAT 93
[2016-07-15] MEDS: WARFARIN SOD 5 MG TAB PO SCH (16:10)
[2016-07-15] MEDS: MoRPHine SULFATE 4 MG/ML 1 ML CARP\\VIAL IV PRN (16:20)
[2016-07-15] MEDS ORDERED: FLUCONAZOLE 50 MG TAB PO ONE (18:30)
[2016-07-15 19:06] LABS: INR 2.1 (0.9-1.1); PROTHROMBIN TIME (PATIENT) 22.8 SECONDS (9.0-12.0)
[2016-07-15] MEDS ORDERED: NURSING VERBAL MED ORDER ONE (19:15)
[2016-07-15] MEDS: TRAMADOL HCL 50 MG TAB PO PRN (20:29)
--- NOTE | 2016-07-15 20:51 | DIAGNOSTIC IMAGING REPORT ---
PA CHEST RADIOGRAPH AND UPRIGHT AND SUPINE AP RADIOGRAPHS OF THE ABDOMEN CLINICAL HISTORY: Follow-up small bowel obstruction. COMPARISON STUDY: Chest radiograph abdominal series July 13, 2016. FINDINGS: Lung volumes are normal. There is no consolidation. No pneumothorax or pleural effusion is present. Cardiomediastinal silhouette is normal. There is no free air. A few prominent upper central abdominal gas-filled loops of bowel are unchanged since prior exam. IMPRESSION: 1. No free air. 2. No change in a few prominent loops of gas-filled bowel within the upper abdomen which favor colonic loops. No definite evidence for a bowel obstruction. 3. No acute cardiopulmonary findings. Electronically signed by: Teddy Burger M.D. 07/15/2016 8:50 PM Dictated Date/Time: 07/15/2016 8:47 PM
[2016-07-15 23:20] VITALS: BP 142/84; PULSE 72; TEMP 36.9; O2SAT 92
[2016-07-15] MEDS: DiphenhydrAMINE HCL 50 MG/ML VIAL IV PRN (23:21)
[2016-07-15 23:35] VITALS: PULSE 74; O2SAT 96
[2016-07-15] MEDS: ALBUT/IPRATROP 3MG/0.5MG NEB 3 ML VIAL INH PRN (23:35)
--- NOTE | 2016-07-16 00:02 | Hospitalist Progress Note ---
Hospitalist Progress Note Date of Service Jul 15, 2016. Subjective Pt evaluation today including: conversation w/ patient Having vag burning and itching just like previous yeast infections. Still having some rt sided abd pain and occasional left sided now. Still with ear clogged. Sylvia reg diet All Other Systems: Reviewed and Negative Objective Vital Signs Date Time Temp Pulse Resp B/P (MAP) Pulse Ox O2 Delivery O2 Flow Rate FiO2 07/15/16 23:35 74 16 96 Room Air 07/15/16 23:20 36.9 72 17 142/84 (103) 92 Room Air 07/15/16 15:45 Room Air 07/15/16 15:33 36.8 75 18 158/79 (105) 93 Room Air 07/15/16 10:33 96 Room Air 07/15/16 07:57 Room Air 07/15/16 07:21 36.8 60 16 148/86 (106) 96 Room Air Physical Exam General Appearance: WD/WN, no apparent distress, + obese Eyes: normal inspection, sclerae normal ENT: hearing grossly normal, + pertinent finding (Rt EAC still with impacted cerumen, no bleeding) Neck: trachea midline Respiratory/Chest: lungs clear, normal breath sounds, no respiratory distress, no accessory muscle use Cardiovascular: regular rate, rhythm, no edema, no gallop, no murmur Abdomen: normal bowel sounds, + tenderness (mild in RLQ w/o guarding or rebound ) Extremities: non-tender, normal inspection, no pedal edema, no calf tenderness Neurologic/Psychiatric: alert, normal mood/affect, oriented x 3 Skin: normal color, warm/dry, no rash Laboratory Results Last 24 Hours Test 07/15/16 18:45 Prothrombin Time 22.8 SECONDS Prothromb Time International Ratio 2.1 Assessment and Plan 61 yo female with h/o Crohn's ileitis, frequent SBO, recent PE, optic neuritis, hypothyroidism, vitamin D deficiency, here with Crohn's ileitis with SBO. Crohn's ileitis with SBO: obstruction resolved clinically, Abd xray today still with some dilated loops of probable colon, moving bowels, sylvia reg diet continue Prednisone 20mg daily till dc then decrease by 5mg weekly until done , continue Cipro 500mg BID Dr. Desir following-, started Humira on 07/15 and will need next dose of 80mg in 1 week, then 40mg every other week for maintenance Recent PE: provoked by sedentary lifestyle, multiple hospitalizations, autoimmune disease and inflammation- Coumadin held on admission due to supratherapeutic INR, INR therapeutic today -bridged with full dose Lovenox, now dc Lovenox as INR therapeutic -continue coumadin 5mg daily -follow INR Right impacted cerumen:some persists -flush with warm water and H2O2 today -continue Debrox gtts Right Optic neuritis: recovering well, no acute issues with sight, follows with ophthalmology, MRI brain not c/w MS as per Neuro -is supposed to f/u with Neuro as outpt Vit D deficiency-Vit D level 16 in 03/2016 --> repeat now 12 -started 2000 units daily Abnormal TSH-last admission and again this admission was low with normal FT3 anf FT4--> subclinical hyperthyroidism -follow as outpatient -consider Endo referral as outpt Vaginal candidiasis -diflucan 150mg po x 1 Proph-coumadin, Lovenox Dispo- to home tomorrow
[2016-07-16] MEDS: TRAMADOL HCL 50 MG TAB PO PRN ×4 (00:54→20:58)
[2016-07-16] MEDS: MoRPHine SULFATE 2 MG/ML CARP IV PRN (04:12)
[2016-07-16 06:45] LABS: BASO % 0.2 %; BASO ABS # 0.01 K/uL (0-0.2); COMPLETE YES; EOS % 2.6 %; HEMATOCRIT 37.9 % (37-47); IG% 2.9 %; LYMPH % 34.9 %; LYMPH ABS # 2.04 K/uL (1.2-3.4); MEAN CORPUSCULAR HEMOGLOBIN 32.5 pg (25-34); MEAN CORPUSCULAR HGB CONC 34.6 g/dl (32-36); MEAN PLATELET VOLUME 9.7 fL (7.4-10.4); MONO % 7.9 %; NEUT % 51.5 %; PLATELET COUNT 238 K/uL (130-400); RED BLOOD COUNT 4.03 M/uL (4.2-5.4); WHITE BLOOD COUNT 5.84 K/uL (4.8-10.8)
[2016-07-16 06:46] LABS: INR 2.2 (0.9-1.1); PROTHROMBIN TIME (PATIENT) 24.4 SECONDS (9.0-12.0)
[2016-07-16 07:14] LABS: BUN/CREATININE RATIO 14.4 (10-20); CALCIUM 8.3 mg/dl (8.5-10.1); CREATININE 0.9 mg/dl (0.60-1.20); MAGNESIUM 2.1 mg/dl (1.8-2.4); POTASSIUM 3.8 mmol/L (3.5-5.1)
[2016-07-16 07:31] VITALS: BP 121/81; PULSE 71; TEMP 36.9; O2SAT 95
[2016-07-16] MEDS: CIPROFLOXACIN 500 MG TAB PO SCH ×2 (08:35→20:57)
[2016-07-16] MEDS: CARBAMIDE PEROXIDE 6.5% 15 ML BTL OT SCH (08:35)
[2016-07-16] MEDS: CHOLECALCIFEROL 1000 INTER.UNIT TAB PO SCH (08:36)
[2016-07-16] MEDS: PANTOprazole SOD 40 MG TAB PO SCH (08:36)
[2016-07-16] MEDS: NICOTINE 14 MG/24 HR TDSY TD SCH (08:36)
[2016-07-16] MEDS: DOCUSATE SODIUM 100 MG CAP PO SCH ×2 (09:26→20:57)
--- NOTE | 2016-07-16 10:58 | Hospitalist Progress Note ---
Hospitalist Progress Note Date of Service Jul 16, 2016. Subjective Pt evaluation today including: conversation w/ patient Abd pain improved with tramadol but comes right back as soon as med wears off. She is sylvia po, no N/V, had small BM last night. Does not yet feel comfortable to go home today. RN able to flush large amount of wax out of rt ear last night and some blood clot came out but now ear feelin g much better. All Other Systems: Reviewed and Negative Objective Vital Signs Date Time Temp Pulse Resp B/P (MAP) Pulse Ox O2 Delivery O2 Flow Rate FiO2 07/16/16 07:31 36.9 71 16 121/81 (94) 95 Room Air 07/16/16 07:15 Room Air 07/15/16 23:35 74 16 96 Room Air 07/15/16 23:20 36.9 72 17 142/84 (103) 92 Room Air 07/15/16 23:15 Room Air 07/15/16 15:45 Room Air 07/15/16 15:33 36.8 75 18 158/79 (105) 93 Room Air Physical Exam General Appearance: WD/WN, no apparent distress, + obese Eyes: normal inspection, sclerae normal ENT: + pertinent finding (Right EAC with small clot and scant fresh blood obscuring TM but cerumen completely gone. Left TM normal and no cerumen) Neck: trachea midline Respiratory/Chest: no respiratory distress, no accessory muscle use, + wheezing (diffuse insp and exp wheezes) Cardiovascular: regular rate, rhythm, no edema, no gallop, no murmur Abdomen: normal bowel sounds, soft, + tenderness (in RLQ w/o guarding or rebound) Extremities: non-tender, no pedal edema, no calf tenderness Neurologic/Psychiatric: alert, oriented x 3, + pertinent finding (anxious) Skin: normal color, warm/dry, no rash Laboratory Results Last 24 Hours Test 07/15/16 18:45 07/16/16 05:55 Prothrombin Time 22.8 SECONDS 24.4 SECONDS Prothromb Time International Ratio 2.1 2.2 White Blood Count 5.84 K/uL Red Blood Count 4.03 M/uL Hemoglobin 13.1 g/dL Hematocrit 37.9 % Mean Corpuscular Volume 94.0 fL Mean Corpuscular Hemoglobin 32.5 pg Mean Corpuscular Hemoglobin Concent 34.6 g/dl Platelet Count 238 K/uL Mean Platelet Volume 9.7 fL Neutrophils (%) (Auto) 51.5 % Lymphocytes (%) (Auto) 34.9 % Monocytes (%) (Auto) 7.9 % Eosinophils (%) (Auto) 2.6 % Basophils (%) (Auto) 0.2 % Neutrophils # (Auto) 3.01 K/uL Lymphocytes # (Auto) 2.04 K/uL Monocytes # (Auto) 0.46 K/uL Eosinophils # (Auto) 0.15 K/uL Basophils # (Auto) 0.01 K/uL RDW Standard Deviation 49.9 fL RDW Coefficient of Variation 14.6 % Immature Granulocyte % (Auto) 2.9 % Immature Granulocyte # (Auto) 0.17 K/uL Sodium Level 142 mmol/L Potassium Level 3.8 mmol/L Chloride Level 105 mmol/L Carbon Dioxide Level 30 mmol/L Anion Gap 7.0 mmol/L Blood Urea Nitrogen 13 mg/dl Creatinine 0.90 mg/dl Est Creatinine Clear Calc Drug Dose 81.1 ml/min Estimated GFR () 79.4 Estimated GFR (Non- 68.5 BUN/Creatinine Ratio 14.4 Random Glucose 87 mg/dl Calcium Level 8.3 mg/dl Magnesium Level 2.1 mg/dl Assessment and Plan 61 yo female with h/o Crohn's ileitis, frequent SBO, recent PE, optic neuritis, hypothyroidism, vitamin D deficiency, here with Crohn's ileitis with SBO. Crohn's ileitis with SBO: obstruction resolved clinically, Abd xray6/7 still with some dilated loops of probable colon but continues to move bowels, sylvia reg diet continue Prednisone 20mg daily till dc then decrease by 5mg weekly until done , continue Cipro 500mg BID Dr. Desir following-, started Humira on 07/15 and will need next dose of 80mg in 1 week, then 40mg every other week for maintenance -will keep one more day to ensure pain controlled with Tramadol for home use and then dc likely tomorrow, hopefully Humira will start helping her soon Recent PE: provoked by sedentary lifestyle, multiple hospitalizations, autoimmune disease and inflammation- Coumadin held on admission due to supratherapeutic INR, INR therapeutic -bridged with full dose Lovenox, then dc Lovenox as INR therapeutic -continue coumadin but will dec 5mg daily -follow INR Right impacted cerumen:completely resolved, some bleeding in rt EAC secondary to trauma from flushing and curette and anticoagulation, very mild -dc Debrox gtts and can use prn at home 1-2x/week Right Optic neuritis: recovering well, no acute issues with sight, follows with ophthalmology, MRI brain not c/w MS as per Neuro -is supposed to f/u with Neuro as outpt Vit D deficiency-Vit D level 16 in 03/2016 --> repeat now 12 -started 2000 units daily Abnormal TSH-last admission and again this admission was low with normal FT3 anf FT4--> subclinical hyperthyroidism -follow as outpatient -consider Endo referral as outpt Vaginal candidiasis -diflucan 150mg po x 1 Proph-coumadin Dispo- to home tomorrow
[2016-07-16] MEDS ORDERED: NURSING VERBAL MED ORDER ONE (11:00)
[2016-07-16] MEDS: ALBUT/IPRATROP 3MG/0.5MG NEB 3 ML VIAL INH PRN ×2 (11:20→20:38)
[2016-07-16 11:21] VITALS: PULSE 72; O2SAT 97
[2016-07-16 16:10] VITALS: BP 123/78; PULSE 70; TEMP 36.2; O2SAT 95
[2016-07-16] MEDS: WARFARIN SOD 5 MG TAB PO SCH (16:29)
[2016-07-16 20:38] VITALS: PULSE 77; O2SAT 96
[2016-07-17] MEDS: DiphenhydrAMINE HCL 50 MG/ML VIAL IV PRN (00:20)
[2016-07-17] MEDS: TRAMADOL HCL 50 MG TAB PO PRN ×3 (01:29→14:09)
[2016-07-17 05:38] LABS: HEMATOCRIT 41.4 % (37-47); MEAN CELL VOLUME 95.4 fL (80-100); MEAN CORPUSCULAR HGB CONC 31.4 g/dl (32-36); MEAN PLATELET VOLUME 9.3 fL (7.4-10.4); PLATELET COUNT 270 K/uL (130-400); RED BLOOD COUNT 4.34 M/uL (4.2-5.4); WHITE BLOOD COUNT 7.05 K/uL (4.8-10.8)
[2016-07-17 05:53] LABS: INR 2.7 (0.9-1.1); PROTHROMBIN TIME (PATIENT) 29.9 SECONDS (9.0-12.0)
[2016-07-17 06:19] LABS: CREATININE 0.94 mg/dl (0.60-1.20)
[2016-07-17 07:03] VITALS: BP 137/84; PULSE 67; TEMP 36.6; O2SAT 96
[2016-07-17] MEDS: CIPROFLOXACIN 500 MG TAB PO SCH (08:41)
[2016-07-17] MEDS: PANTOprazole SOD 40 MG TAB PO SCH (08:41)
[2016-07-17] MEDS: CHOLECALCIFEROL 1000 INTER.UNIT TAB PO SCH (08:41)
[2016-07-17] MEDS: DOCUSATE SODIUM 100 MG CAP PO SCH (08:41)
[2016-07-17] MEDS: NICOTINE 14 MG/24 HR TDSY TD SCH (08:44)
[2016-07-17 08:50] VITALS: PULSE 79; O2SAT 97
[2016-07-17] MEDS: ALBUT/IPRATROP 3MG/0.5MG NEB 3 ML VIAL INH PRN (08:50)
[2016-07-17] MEDS ORDERED: CLC100 PO (11:08)
[2016-07-17] MEDS ORDERED: VTMD1000 PO (11:08)
[2016-07-17] MEDS ORDERED: ULT50X PO (11:08)
[2016-07-17] MEDS ORDERED: NICO14DI9 TD (11:08)
[2016-07-17] MEDS ORDERED: PRT40 PO (11:08)
[2016-07-17] MEDS ORDERED: WARF4TAB PO (11:08)
[2016-07-17] MEDS ORDERED: PRED10TA PO (11:08)
[2016-07-17] MEDS ORDERED: ADAL40KI SQ (11:13)
--- NOTE | 2016-07-17 11:19 | Discharge Instructions ---
Discharge Instructions Date of Service Jul 17, 2016. Admission Reason for Admission: Sbo And Crohn's Flare Discharge Discharge Diagnosis / Problem: Small Bowel Obstruction, Crohn's disease Discharge Goals Goal(s): Improve disease control, Diagnostic testing, Therapeutic intervention Activity Recommendations Activity Limitations: resume your previous activity Exercise/Sports Limitations: none Shower/Bathe: no limitations Driving or Machine Use: no driving while taking sedating pain meds . Instructions / Follow-Up Instructions / Follow-Up You were admitted for a bowel obstruction and abdominal pain related to your Crohn's disease. You were started on steroids and Cipro as an antibiotic. You were tolerating food and having bowel movements by the time of discharge. You were started on Humira and should follow up with GI next week. You had vaginal bleeding while here and were seen by [facility]-you should follow up with [facility] as an outpatient but this was thought to be due to your blood thinner as you rpelvic ultrasound was ok. You should DEFINITELY QUIT SMOKING. This is probably the best thing you could ever do for yourself from a health perspective. Follow up with your PCP within 1 week, GI within 1 week. [facility] in 1-2 weeks. If the lump in your left side of your abdomen does not resolve, you may need to see a General Surgeon to cut it out as it may be a cyst. Please have your INR checked for your coumadin level on Wednesday with Home Health. Your INR was 2.7 on the day of discharge. Current Hospital Diet Patient's current hospital diet: Regular Diet Discharge Diet Recommended Diet: Regular Diet Procedures Procedures Performed: Abdominal xrays Pelvic Ultrasound Pending Studies Studies pending at discharge: no Laboratory Results Hemoglobin A1c Test 06/21/16 10:55 Range/Units Estimated Average Glucose 114 mg/dl Hemoglobin A1c 5.6 4.5-5.6 % Lipid Panel Test 06/22/16 06:25 Range/Units Triglycerides Level 166 H 0-150 mg/dl Cholesterol Level 254 H 0-200 mg/dl HDL Cholesterol 62 mg/dl Cholesterol/HDL Ratio 4.1 LDL Cholesterol, Calculated 159 mg/dl Medical Emergencies . Who to Call and When: Medical Emergencies: If at any time you feel your situation is an emergency, please call 911 immediately. . Non-Emergent Contact Non-Emergency issues call your: Primary Care Provider, Cigar Brander Call Non-Emergent contact if: temperature is above 101, your pain is not controlled, your pain is worsening, your pain is unusual for you, your pain is concerning you, you have any medication questions . . "Provider Documentation" section prepared by Namita Grayson. . VTE Core Measure Inpt VTE Proph given/why not?: Enoxaparin (Lovenox)SQ, Warfarin (Coumadin) [place] Drug Monitoring Program Search Results: patient reviewed within database, no issues identified
[2016-07-17 12:34] VITALS: BP 137/84; PULSE 79; TEMP 36.6; O2SAT 97
--- NOTE | 2016-08-03 23:31 | Discharge Summary ---
Discharge Summary Date of Service Jul 17, 2016. 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 COMPARISON STUDY: Pelvic CT dated 06/23/2016. TECHNIQUE: Real-time, grayscale, and color flow sonography of the pelvis is performed both transabdominally and endovaginally. Images are reviewed in the transverse and longitudinal planes. The examination is degraded by large body habitus. FINDINGS: Uterus: The uterus is normal in size and heterogeneous in echotexture, measuring 5.9 x 2.9 x 3.8 cm. A Nabothian cyst is identified in the cervix. Endometrium: The endometrium is normal in appearance, and the endometrial stripe is top normal in thickness for age measuring between 3-4 mm Ovaries: The ovaries were not visualized. Pelvis: There is no free fluid in the cul-de-sac. No concerning adnexal lesion is seen. IMPRESSION: 1. No acute sonographic abnormality is seen in the pelvis. 2. The endometrial stripe measures between 3-4 mm. 3. The ovaries were not visualized. Initial Abd xray: 1. No acute process within the chest. 2. Distended loops of bowel within the midabdomen. This could represent the sigmoid colon and is concerning for sigmoid volvulus. Correlation with recent CT is recommended for further evaluation. Consultations: Gastroenterology Gynecology Medication Reconciliation New Medications: Adalimumab (Humira Pen) 40 Mg/0.8 Ml Kit 80 MG SQ WK, #1 DUE on 07/21/16, then 40mg sq every other week after that Cholecalciferol (Vitamin D3) 1,000 Inter.unit Tab 2000 INTER.UNIT PO QAM for 30 Days, TAB OTC Docusate Sodium (Docusate Sodium) 100 Mg Cap 100 MG PO BID for 30 Days, #60 CAP Pantoprazole (Pantoprazole Sodium) 40 Mg Tab 40 MG PO QAM for 30 Days, #30 TAB Tramadol HCl (Tramadol HCl) 50 Mg Tab 50 MG PO Q6H PRN for Pain, #30 TAB Continued Medications: Albuterol Hfa (Ventolin Hfa) 200 Puffs/55774 Mcg Aers 2-4 PUFFS INH Q6H, #1 INHALER Aspirin (Aspirin Ec) 81 Mg Tab 81 MG PO DAILY Cyanocobalamin (Vitamin B12) 1,000 Mcg Tab 1000 MCG PO DAILY Ferrous Sulfate (Iron) 325 Mg Tab 325 MG PO DAILY Loratadine (Claritin) 10 Mg Tab 10 MG PO DAILY, TAB Probiotic Product (Digestive Advantage Probi) 1 Chw Chw 1 CAP PO DAILY Trazodone Hcl (Trazodone) 50 Mg Tab 50 MG PO HS PRN for Sleep, TAB Discontinued Medications: Methylcellulose (Laxative) (Citrucel) 500 Mg Tab 500 MG PO BID Warfarin Sod (Coumadin) 5 Mg Tab 5 MG PO DAILY@16, #30 TAB 3 Refills Warfarin Sod (Coumadin) 2.5 Mg Tab 1 TAB PO DAILY for 30 Days, #30 TAB 3 Refills Referrals At Discharge Follow up Referrals: Track Repair Worker Referral - Within 1-2 Weeks with Esperanza Madrid M.D.([facility]/OB) Discharge Exam Physical Exam General Appearance: WD/WN, no apparent distress, + obese Eyes: normal inspection, sclerae normal ENT: + pertinent finding (Right EAC with small clot and scant fresh blood obscuring TM but cerumen completely gone. Left TM normal and no cerumen) Neck: trachea midline Respiratory/Chest: no respiratory distress, no accessory muscle use, + wheezing (a few scattered wheezes) Cardiovascular: regular rate, rhythm, no edema, no gallop, no murmur Abdomen: normal bowel sounds, soft, + tenderness (in RLQ w/o guarding or rebound) Extremities: non-tender, no pedal edema, no calf tenderness Neurologic/Psychiatric: alert, oriented x 3, + pertinent finding (anxious) Skin: normal color, warm/dry, no rash Review of Systems: Constitutional: No fever Eyes: No problem reported ENT: No problem reported Respiratory: No problem reported Cardiovascular: No problem reported Abdomen: + pain, No nausea, No vomiting, No diarrhea, No constipation Musculoskeletal: No problem reported Genitourinary - Female: + vaginal discharge, + vaginal itching Neurologic: No problem reported Psychiatric: + anxiety Endocrine: No problem reported Hematologic / Lymphatic: No problem reported Integumentary: No problem reported Hospital Course 61 yo female with h/o Crohn's ileitis, frequent SBO, recent PE, optic neuritis, hypothyroidism, vitamin D deficiency, here with Crohn's ileitis with SBO. Crohn's ileitis with SBO: obstruction resolved clinically, Abd xray6/7 still with some dilated loops of probable colon but continues to move bowels, sylvia reg diet continue Prednisone 20mg daily till dc then decrease by 5mg weekly until done , continue Cipro 500mg BID Dr. Desir following-, started Humira on 07/15 and will need next dose of 80mg in 1 week, then 40mg every other week for maintenance - pain controlled with Tramadol, hopefully Humira will start helping her soon Recent PE: provoked by sedentary lifestyle, multiple hospitalizations, autoimmune disease and inflammation- Coumadin held on admission due to supratherapeutic INR, INR therapeutic -bridged with full dose Lovenox, then dc Lovenox as INR therapeutic -continue coumadin but will dec 5mg daily -follow INR in 2-3 days with home health Right impacted cerumen:completely resolved, some bleeding in rt EAC secondary to trauma from flushing and curette and anticoagulation, very mild -dc Debrox gtts and can use prn at home 1-2x/week Right Optic neuritis: recovering well, no acute issues with sight, follows with ophthalmology, MRI brain not c/w MS as per Neuro -is supposed to f/u with Neuro as outpt Vit D deficiency-Vit D level 16 in 03/2016 --> repeat now 12 -started 2000 units daily Abnormal TSH-last admission and again this admission was low with normal FT3 anf FT4--> subclinical hyperthyroidism -follow as outpatient -consider Endo referral as outpt Vaginal candidiasis -diflucan 150mg po x 1 Current Smoker-counseled extensively on smoking cessation Proph-coumadin Dispo- to home today Total Time Spent: Greater than 30 minutes This includes examination of the patient, discharge planning, medication reconciliation, and communication with other providers. Discharge Instructions Please refer to the electronic Patient Visit Report (Discharge Instructions) for additional information. Follow-Up PCP within 1 week GI in 1 week [facility] in 2-3 weeks Ophtho as scheduled Additional Copies To Ulices Desir D.O.; Oc Sesay PA-C
[2016-08-18] MEDS ORDERED: CMD75 PO (11:43)
[2016-08-18] MEDS ORDERED: LVNIS120 SQ (11:43)
[2016-08-18] MEDS ORDERED: MRLP17X PO (11:52)
[2016-08-18] MEDS ORDERED: PRD10 PO (11:52)
[2016-09-29] MEDS ORDERED: PRD5 PO (09:14)
[2016-11-17] MEDS ORDERED: ZYR10 PO (12:37)
[2016-11-17] MEDS ORDERED: NICO14DI5 TD (12:37)
== END 2016-07-17 14:45 | disposition home health service (06) | DRG 386 ==
LOC: UNDOADMIN 02:23 → C.3E 02:23
PROVIDERS: ADMIT Hospitalist; ATTEND Family Medicine
DX: K50.90 Crohn's disease, unspecified, without complications (principal); K56.60 Unspecified intestinal obstruction; H46.9 Unspecified optic neuritis; E03.9 Hypothyroidism, unspecified; E55.9 Vitamin D deficiency, unspecified; H91.90 Unspecified hearing loss, unspecified ear; K59.00 Constipation, unspecified; E66.01 Morbid (severe) obesity due to excess calories; N95.0 Postmenopausal bleeding; G47.00 Insomnia, unspecified; J30.2 Other seasonal allergic rhinitis; H61.20 Impacted cerumen, unspecified ear; F17.210 Nicotine dependence, cigarettes, uncomplicated; Z79.52 Long term (current) use of systemic steroids; Z87.440 Personal history of urinary (tract) infections; Z79.01 Long term (current) use of anticoagulants; Z79.82 Long term (current) use of aspirin; Z79.899 Other long term (current) drug therapy; Z86.711 Personal history of pulmonary embolism; Z98.51 Tubal ligation status; Z80.3 Family history of malignant neoplasm of breast; Z84.89 Family history of other specified conditions; B37.3 Candidiasis of vulva and vagina

== ENCOUNTER 2016-07-29 11:14 | Observation (INO) | payer OTHER ==
[~2016-07-29] VITALS: Ht 167.6 cm; Wt 122.6 kg
[~2016-07-29 11:14] MED LIST changes: +ADAL40KI SQ; +CLC100 PO; +CLR10 PO; -CMD/25 PO; -CMD5 PO; -METH500T3 PO; +NICO14DI9 TD; -OMEP20TA74 PO; +PRED10TA PO; +PRT40 PO; +ULT50X PO; +VNTHFA/IN INH; +VTMD1000 PO; +WARF4TAB PO
[2016-07-29] MEDS ORDERED: HYDROmorphone INJ 0.5 MG/0.5 ML SYR IV STA ×2 (12:04→14:33)
[2016-07-29] MEDS ORDERED: SODIUM CHLORIDE 0.9% 1000ML 1,000 ML IV STA (12:04)
[2016-07-29] MEDS ORDERED: ONDANSETRON INJ 2 MG/ML 2 ML VIAL IV STA (12:04)
[2016-07-29 12:21] LABS: URINE APPEARANCE CLEAR (CLEAR); URINE BILIRUBIN NEG (NEG); URINE COLOR YELLOW; URINE NITRITE NEG (NEG); URINE PH 6.5 (4.5-7.5); URINE SPECIFIC GRAVITY 1.008 (1.000-1.030); UROBILINOGEN NEG (NEG)
[2016-07-29 12:29] LABS: MANUAL MICROSCOPIC REQUIRED? NO; REVIEW REQ? NO
--- NOTE | 2016-07-29 13:02 | DIAGNOSTIC IMAGING REPORT ---
PA CHEST WITH ABDOMINAL SERIES CLINICAL HISTORY: Left-sided abdominal pain. FINDINGS: A PA chest radiograph is compared to study dated 07/15/2016 and correlated with chest CT dated 06/08/2016. The cardiomediastinal silhouette is unremarkable. There is atherosclerotic calcification of the thoracic aorta. Chronic interstitial thickening is similar to previous. Mild bibasilar atelectasis is observed. No airspace consolidation, large pleural effusion, or pneumothorax is seen. The skeletal structures are osteopenic. Degenerative change is noted throughout the thoracic spine. The bony thorax is grossly intact. Supine and erect abdominal radiographs are compared to study dated 07/15/2016 and correlated with abdominal CT dated 06/23/2016. Again seen are distended and gas-filled loops of small bowel. Scattered air-fluid levels are seen on the upright view. No intraperitoneal free air is seen. There are no abnormal abdominal calcifications. There is moderate lumbar spondylosis and scoliosis. The bony pelvis appears intact. IMPRESSION: 1. No active disease in the chest. 2. Distended gas-filled loops of small bowel are similar to prior studies. This could represent small bowel obstruction or possibly ileus. Clinical correlation will be required. 3. No intraperitoneal free air is seen. Electronically signed by: Frank Cortez M.D. 07/29/2016 1:00 PM Dictated Date/Time: 07/29/2016 12:57 PM
[2016-07-29] MEDS ORDERED: ATOR-22 PO (13:18)
[2016-07-29] MEDS ORDERED: WARF5TAB90 PO (13:20)
[2016-07-29 13:41] LABS: HEMATOCRIT 44.5 % (37-47); MEAN CELL VOLUME 96.1 fL (80-100); MEAN CORPUSCULAR HEMOGLOBIN 32.8 pg (25-34); MEAN CORPUSCULAR HGB CONC 34.2 g/dl (32-36); MEAN PLATELET VOLUME 10.3 fL (7.4-10.4); PLATELET COUNT 235 K/uL (130-400); RED BLOOD COUNT 4.63 M/uL (4.2-5.4)
[2016-07-29 14:26] LABS: INR 1.7 (0.9-1.1); PARTIAL THROMBOPLASTIN RATIO 1.3; PROTHROMBIN TIME (PATIENT) 18.1 SECONDS (9.0-12.0)
[2016-07-29 14:30] LABS: CALCIUM 8.8 mg/dl (8.5-10.1)
[2016-07-29 14:31] LABS: ALT/SGPT 27 U/L (12-78); BLOOD UREA NITROGEN 15 mg/dl (7-18); BUN/CREATININE RATIO 16.9 (10-20); CARBON DIOXIDE 28 mmol/L (21-32); CHLORIDE 108 mmol/L (98-107); CREATININE 0.87 mg/dl (0.60-1.20); GLUCOSE 80 mg/dl (70-99); MAGNESIUM 2.1 mg/dl (1.8-2.4); POTASSIUM 4.2 mmol/L (3.5-5.1); SODIUM 143 mmol/L (136-145)
[2016-07-29 14:37] LABS: BASOPHIL % 0.9 %; COMPLETE YES; EOSINOPHIL % 1.7 %; LYMPHOCYTE % 31.3 %; MYELOCYTE % 2.6 %; NEUTROPHILS % 53.1 %
[2016-07-29 14:38] LABS: BASO % 0.9 %; EOS % 2.2 %; IG% 1.4 %; LYMPH % 34.5 %; MONO % 9.3 %; NEUT % 51.7 %
[2016-07-29 14:40] LABS: BASO ABS # 0.07 K/uL (0-0.2); LYMPH ABS # 2.55 K/uL (1.2-3.4)
[2016-07-29 14:47] LABS: ALKALINE PHOSPHATASE 54 U/L (45-117); AST/SGOT 16 U/L (15-37); THYROID STIMULATING HORMONE 0.394 uIu/ml (0.300-4.500)
--- NOTE | 2016-07-29 15:03 | DIAGNOSTIC IMAGING REPORT ---
CT SCAN OF THE BRAIN WITHOUT IV CONTRAST CLINICAL HISTORY: Generalized weakness. Headache. COMPARISON STUDY: MRI of the brain dated 06/21/2016. TECHNIQUE: Unenhanced axial CT scan of the brain is performed from the vertex to the skull base. Automated dose control exposure was utilized. CT DOSE: 729.78 mGycm FINDINGS: Brain parenchyma: The brain parenchyma is normal in appearance. There is no hemorrhage, mass effect, or evidence of acute territorial ischemia by CT criteria. Bustamante-white matter is preserved. No extra-axial fluid collection is seen. Ventricles, sulci, cisterns: Normal in configuration. Intracranial vasculature: There is mild atherosclerotic calcification of the cavernous carotid arteries. Calvarium: Unremarkable. Sinuses and mastoids: The visualized paranasal sinuses are clear. The mastoid air cells are well pneumatized. Orbits: The bony orbits are grossly intact. IMPRESSION: There is no hemorrhage, mass effect, or evidence of acute territorial ischemia by CT criteria. Electronically signed by: Frank Cortez M.D. 07/29/2016 3:02 PM Dictated Date/Time: 07/29/2016 3:00 PM
[2016-07-29] MEDS ORDERED: MoRPHine SULFATE 4 MG/ML 1 ML CARP\\VIAL IV STA ×2 (16:16→17:58)
[2016-07-29] MEDS ORDERED: MoRPHine SULFATE 4 MG/ML 1 ML CARP\\VIAL ONE (16:17)
--- NOTE | 2016-07-29 18:37 | EMERGENCY ROOM VISIT NOTE ---
History Report prepared by Chon: Veronique Brown Under the Supervision of: Dr. Keon Frey M.D. First contact with patient: 11:38 Chief Complaint: HEAD PAIN Stated Complaint: HEAD PAIN/BLURRED VISION/LEFT ARM PAIN History of Present Illness The patient is a 61 year old female who presents to the Emergency Room with complaints of a persistent headache that began four hours ago. She currently rates her discomfort as a 7/10 in severity. The patient states that she has never had pain like this in the past. She additionally notes left arm weakness and left hand cramping, but denies any injury. The patient additionally notes a left upper quadrant abdominal pain that appears similar to pain she experiences with Crohn's Disease. She additionally notes that she noticed blurry vision today. The patient states that she had an epistaxis today. The patient states that she noticed blood in her stool this morning. She states that she is on Coumadin. The patient states that she has noticed weakness in her bilateral legs. She denies any recent fall. The patient reports a history of pulmonary emboli, bowel obstruction, and Crohn's Disease. The patient states that she has noticed right ear pain. She reports a history of optic neuritis. Pt denies LOC, fevers, chills, diaphoresis, neck pain, chest pain, breathing difficulties, nausea, vomiting, abdominal pain, back pain, melena, urinary symptoms, numbness, lymphadenopathy, rash, or other complaints. Source of History: patient Onset: four hours ago Position: head Symptom Intensity: 7/10 Timing: other (persistent) Associated Symptoms: + abdominal pain (left upper quadrant), + weakness ( bilateral legs, left arm) Note: Associated Symptoms: blood in stool, epistaxis, right ear pain Review of Systems See HPI for pertinent positives and negatives. A total of ten systems were reviewed and were otherwise negative. Past Medical & Surgical Medical Problems: (1) Bowel obstruction (2) Cellulitis (3) Crohn's disease involving terminal ileum (4) Crohns disease (5) Postmenopausal bleeding (6) Pulmonary emboli (7) Rectal bleeding (8) right eye pain and decreased vision for 1 day (9) RUQ abdominal pain (10) SBO (small bowel obstruction) Family History Patient reports no known family medical history. Social History Smoking Status: Current Every Day Smoker Alcohol Use: none Drug Use: none Marital Status: Housing Status: lives with family Occupation Status: unemployed Current/Historical Medications Scheduled Adalimumab (Humira Pen), 80 MG SQ WK Albuterol Hfa (Ventolin Hfa), 2-4 PUFFS INH Q6H Aspirin (Aspirin Ec), 81 MG PO DAILY Atorvastatin (Lipitor), 20 MG PO DAILY Cholecalciferol (Vitamin D3), 2,000 INTER.UNIT PO QAM Cyanocobalamin (Vitamin B12), 1,000 MCG PO DAILY Docusate Sodium (Docusate Sodium), 100 MG PO BID Ferrous Sulfate (Iron), 325 MG PO DAILY Loratadine (Claritin), 10 MG PO DAILY Pantoprazole (Pantoprazole Sodium), 40 MG PO QAM Prednisone (Prednisone), 15 MG PO DAILY Probiotic Product (Digestive Advantage Probi), 1 CAP PO DAILY Warfarin Sodium (Coumadin), 1 TAB PO DAILY Scheduled PRN Tramadol HCl (Tramadol HCl), 50 MG PO Q6H PRN for Pain Trazodone Hcl (Trazodone), 50 MG PO HS PRN for Sleep Allergies Coded Allergies: No Known Allergies (Unverified , 07/29/16) Physical Exam Vital Signs Date Time Temp Pulse Resp B/P (MAP) Pulse Ox O2 Delivery O2 Flow Rate FiO2 07/29/16 17:28 71 16 107/49 98 Room Air 07/29/16 16:29 76 14 108/57 98 Room Air 07/29/16 16:05 81 07/29/16 15:11 72 16 102/65 98 Room Air 07/29/16 13:17 72 16 108/60 100 Room Air 07/29/16 12:08 100 Room Air 07/29/16 12:04 81 07/29/16 11:36 36.9 85 20 162/81 99 Room Air Physical Exam GENERAL: Awake, alert, well-appearing, in no distress HENT: Normocephalic, atraumatic. Oropharynx unremarkable. EYES: Normal conjunctiva. Sclera non-icteric. PERRL, EOMI, corneas clear. Lids normal. EARS: Dry blood on right auditory canal. NECK: Supple. No nuchal rigidity. FROM. No JVD. RESPIRATORY: Clear to auscultation. CARDIAC: Regular rate, normal rhythm. Extremities warm and well perfused. Pulses equal. ABDOMEN: Soft, non-distended. Mild left flank tenderness. No rebound or guarding. No masses. RECTAL: Deferred. MUSCULOSKELETAL: Chest examination reveals no tenderness. The back is symmetrical on inspection without obvious abnormality. There is no CVA tenderness to palpation. No joint edema. LOWER EXTREMITIES: Calves are equal size bilaterally and non-tender. No edema. No discoloration. NEURO: Normal sensorium. No sensory or motor deficits noted. No drift. SKIN: No rash or jaundice noted. Medical Decision & Procedures ER Provider Diagnostic Interpretation: Radiology results as stated below per my review and radiologist interpretation: CT SCAN OF THE BRAIN WITHOUT IV CONTRAST CLINICAL HISTORY: Generalized weakness. Headache. COMPARISON STUDY: MRI of the brain dated 06/21/2016. TECHNIQUE: Unenhanced axial CT scan of the brain is performed from the vertex to the skull base. Automated dose control exposure was utilized. CT DOSE: 729.78 mGycm FINDINGS: Brain parenchyma: The brain parenchyma is normal in appearance. There is no hemorrhage, mass effect, or evidence of acute territorial ischemia by CT criteria. Bustamante-white matter is preserved. No extra-axial fluid collection is seen. Ventricles, sulci, cisterns: Normal in configuration. Intracranial vasculature: There is mild atherosclerotic calcification of the cavernous carotid arteries. Calvarium: Unremarkable. Sinuses and mastoids: The visualized paranasal sinuses are clear. The mastoid air cells are well pneumatized. Orbits: The bony orbits are grossly intact. IMPRESSION: There is no hemorrhage, mass effect, or evidence of acute territorial ischemia by CT criteria. Electronically signed by: Frank Cortez M.D. 07/29/2016 3:02 PM Dictated Date/Time: 07/29/2016 3:00 PM PA CHEST WITH ABDOMINAL SERIES CLINICAL HISTORY: Left-sided abdominal pain. FINDINGS: A PA chest radiograph is compared to study dated 07/15/2016 and correlated with chest CT dated 06/08/2016. The cardiomediastinal silhouette is unremarkable. There is atherosclerotic calcification of the thoracic aorta. Chronic interstitial thickening is similar to previous. Mild bibasilar atelectasis is observed. No airspace consolidation, large pleural effusion, or pneumothorax is seen. The skeletal structures are osteopenic. Degenerative change is noted throughout the thoracic spine. The bony thorax is grossly intact. Supine and erect abdominal radiographs are compared to study dated 07/15/2016 and correlated with abdominal CT dated 06/23/2016. Again seen are distended and gas-filled loops of small bowel. Scattered air-fluid levels are seen on the upright view. No intraperitoneal free air is seen. There are no abnormal abdominal calcifications. There is moderate lumbar spondylosis and scoliosis. The bony pelvis appears intact. IMPRESSION: 1. No active disease in the chest. 2. Distended gas-filled loops of small bowel are similar to prior studies. This could represent small bowel obstruction or possibly ileus. Clinical correlation will be required. 3. No intraperitoneal free air is seen. Electronically signed by: Frank Cortez M.D. 07/29/2016 1:00 PM Dictated Date/Time: 07/29/2016 12:57 PM Laboratory Results 07/29/16 11:30 Red Blood Count 4.63, Mean Corpuscular Volume 96.1, Mean Corpuscular Hemoglobin 32.8, Mean Corpuscular Hemoglobin Concent 34.2, Mean Platelet Volume 10.3, Neutrophils (%) (Auto) 51.7, Lymphocytes (%) (Auto) 34.5, Monocytes (%) (Auto) 9.3, Eosinophils (%) (Auto) 2.2, Basophils (%) (Auto) 0.9, Neutrophils # (Auto) 3.83, Lymphocytes # (Auto) 2.55, Monocytes # (Auto) 0.69, Eosinophils # (Auto) 0.16, Basophils # (Auto) 0.07 07/29/16 13:45 Test 07/29/16 11:30 07/29/16 13:45 White Blood Count 7.40 K/uL (4.8-10.8) Red Blood Count 4.63 M/uL (4.2-5.4) Hemoglobin 15.2 g/dL (12.0-16.0) Hematocrit 44.5 % (37-47) Mean Corpuscular Volume 96.1 fL (80-100) Mean Corpuscular Hemoglobin 32.8 pg (25-34) Mean Corpuscular Hemoglobin Concent 34.2 g/dl (32-36) Platelet Count 235 K/uL (130-400) Mean Platelet Volume 10.3 fL (7.4-10.4) Neutrophils (%) (Auto) 51.7 % Lymphocytes (%) (Auto) 34.5 % Monocytes (%) (Auto) 9.3 % Eosinophils (%) (Auto) 2.2 % Basophils (%) (Auto) 0.9 % Neutrophils # (Auto) 3.83 K/uL (1.4-6.5) Lymphocytes # (Auto) 2.55 K/uL (1.2-3.4) Monocytes # (Auto) 0.69 K/uL (0.11-0.59) Eosinophils # (Auto) 0.16 K/uL (0-0.5) Basophils # (Auto) 0.07 K/uL (0-0.2) RDW Standard Deviation 53.1 fL (36.4-46.3) RDW Coefficient of Variation 15.3 % (11.5-14.5) Immature Granulocyte % (Auto) 1.4 % Immature Granulocyte # (Auto) 0.10 K/uL (0.00-0.02) Neutrophils % (Manual) 53.1 % Lymphocytes % (Manual) 31.3 % Monocytes % (Manual) 10.4 % Eosinophils % (Manual) 1.7 % Basophils % (Manual) 0.9 % Myelocytes % 2.6 % Erythrocyte Sedimentation Rate 21 mm/hr (0-21) Urine Color YELLOW Urine Appearance CLEAR (CLEAR) Urine pH 6.5 (4.5-7.5) Urine Specific [place] 1.008 (1.000-1.030) Urine Protein NEG (NEG) Urine Glucose (UA) NEG (NEG) Urine Ketones NEG (NEG) Urine Occult Blood NEG (NEG) Urine Nitrite NEG (NEG) Urine Bilirubin NEG (NEG) Urine Urobilinogen NEG (NEG) Urine Leukocyte Esterase NEG (NEG) Prothrombin Time 18.1 SECONDS (9.0-12.0) Prothromb Time International Ratio 1.7 (0.9-1.1) Activated Partial Thromboplast Time 34.5 SECONDS (21.0-31.0) Partial Thromboplastin Ratio 1.3 Anion Gap 7.0 mmol/L (3-11) Est Creatinine Clear Calc Drug Dose 89.5 ml/min Estimated GFR () 82.8 Estimated GFR (Non- 71.4 BUN/Creatinine Ratio 16.9 (10-20) Calcium Level 8.8 mg/dl (8.5-10.1) Magnesium Level 2.1 mg/dl (1.8-2.4) Total Bilirubin 0.4 mg/dl (0.2-1) Direct Bilirubin < 0.1 mg/dl (0-0.2) Aspartate Amino Transf (AST/SGOT) 16 U/L (15-37) Alanine Aminotransferase (ALT/SGPT) 27 U/L (12-78) Alkaline Phosphatase 54 U/L (45-117) Troponin I < 0.015 ng/ml (0-0.045) C-Reactive Protein < 0.29 mg/dl (0-0.29) Total Protein 6.2 gm/dl (6.4-8.2) Albumin 3.1 gm/dl (3.4-5.0) Lipase 129 U/L (73-393) Thyroid Stimulating Hormone (TSH) 0.394 uIu/ml (0.300-4.500) Laboratory results reviewed by me Medications Administered Medications (Trade) Dose Ordered Sig/Rachael Route Start Time Stop Time Status Last Admin Dose Admin Sodium Chloride 1,000 ml @ 125 mls/hr Q8H STAT IV 07/29/16 12:04 07/29/16 20:03 07/29/16 12:04 125 MLS/HR Ondansetron HCl (Zofran Inj) 4 mg NOW STAT IV 07/29/16 12:04 07/29/16 12:06 DC 07/29/16 12:15 4 MG Hydromorphone HCl (Dilaudid Inj) 0.5 mg NOW STAT IV 07/29/16 12:04 07/29/16 12:07 DC 07/29/16 12:15 0.5 MG Hydromorphone HCl (Dilaudid Inj) 0.5 mg NOW STAT IV 07/29/16 14:33 07/29/16 14:34 DC 07/29/16 14:39 0.5 MG Morphine Sulfate (MoRPHine SULFATE INJ) 4 mg NOW STAT IV 07/29/16 16:16 07/29/16 16:17 DC 07/29/16 16:27 4 MG Morphine Sulfate (MoRPHine SULFATE INJ) 4 mg NOW STAT IV 07/29/16 17:58 07/29/16 17:59 DC 07/29/16 18:24 4 MG ECG Indication: abdominal pain Rate (beats per minute): 80 Rhythm: sinus rhythm Findings: 1st degree AV block, no acute ischemic change, no ectopy ED Course 1201: The patient was evaluated in room C6. A complete history and physical exam was performed. 1204: Ordered Dilaudid Inj 0.5 mg IV, Zofran Inj 4 mg IV, Sodium Chloride 1000 ml @ 125 mls/hr IV. 1300: I reevaluated the patient and she is feeling better. 1433: I reevaluated the patient and she is developing more pain. Ordered Dilaudid Inj 0.5 mg IV. 1616: Ordered Morphine Sulfate 4 mg IV. 1754: I reevaluated the patient and she is resting. I discussed the exam findings with her and I discussed the treatment plan with her. She verbalized complete understanding and agreement. She will be evaluated for further treatment. 1758: Ordered Morphine Sulfate 4 mg IV. Medical Decision Medication Reconciliation: I attest that I have personally reviewed the patient' s current medication list Blood pressure screening: Patient was found to have normal blood pressure on screening and does not require follow-up. Triage Nursing notes reviewed. The patient's presentation and history were concerning for headache, left arm complaints, and abdominal pain with a PMHx of Crohn's, anticoagulation, and optic neuritis. The patient was evaluated. Neurologically she was intact. Her pupils are equal , round and reactive. Extraocular movements were intact. She had no hyphema. Cornea were clear. She had no focal neurologic findings on examination. She has no history of migraines. No meningeal findings present. She had some minimal abdominal tenderness but no peritoneal findings. She is not distended. Imaging and blood work ordered. The patient was given Zofran and Dilaudid for symptom control. She was feeling somewhat better on reassessment. The patient required a second dose of Dilaudid. Her blood work was unremarkable. Visual acuity was not significantly different from left to right. CT imaging did not reveal any evidence of hemorrhage. She had an ileus noted on x-ray. The patient's CRP and ESR were negative. On reassessment she was still having a mild left-sided headache. She does not have any meningeal findings. The patient cannot have a lumbar puncture given her elevated INR and Coumadin use. The patient did require IV morphine and did feel better with this but was still having symptoms. Because of the persistent symptoms and ileus given her medical history further evaluation and management was felt to be appropriate in the hospital. I did consult with internal medicine. Patient was evaluated for further treatment. Consults Time Called: 1807 Consulting Physician: Dr. Anderson Returned Call: [phone] Discussed case, history, presentation, and results. Discussed treatment. The patient will be evaluated in the Emergency Room for further management. Impression Primary Impression: Headache Additional Impressions: Ileus Visual disturbance Scribe Attestation The scribe's documentation has been prepared under my direction and personally reviewed by me in its entirety. I confirm that the note above accurately reflects all work, treatment, procedures, and medical decision making performed by me. Departure Information Dispostion Being Evaluated By Hospitalist Referrals Oc Sesay PA-C (PCP) Problem Qualifiers
[2016-07-29] MEDS ORDERED: KETOROLAC TROMETHAMINE 30 MG/ML VIAL IV STA (18:54)
[2016-07-29] MEDS ORDERED: POLYETHYLENE (MIRALAX) 17 GM PACK PO PRN ×2 (19:00→20:30)
[2016-07-29] MEDS ORDERED: MAGNESIUM HYDROXIDE SUSP 30 ML UDC PO PRN ×2 (19:00→20:45)
[2016-07-29] MEDS ORDERED: ONDANSETRON INJ 2 MG/ML 2 ML VIAL IV PRN ×2 (19:00→20:45)
[2016-07-29] MEDS ORDERED: ACETAMINOPHEN 325 MG TAB PO PRN ×2 (19:00→20:30)
[2016-07-29] MEDS ORDERED: TRAZODONE HCL 50 MG TAB PO PRN (19:00)
[2016-07-29] MEDS ORDERED: ALBUTEROL HFA 8 GM INHALER INH SCH (19:00)
[2016-07-29] MEDS ORDERED: TRAMADOL HCL 50 MG TAB PO PRN (19:00)
[2016-07-29] MEDS ORDERED: ALUMINUM/MAGNESIUM/SIMETH (MAALOX MAX) 30 ML UDC PO PRN ×2 (19:00→20:30)
--- NOTE | 2016-07-29 19:33 | History and Physical ---
History & Physical Date & Time of Service: Jul 29, 2016 at 19:08 Chief Complaint: Head Pain/Blurred Vision/Left Arm Pain Primary Care Physician: Oc Sesay PA-C History of Present Illness Source: patient 61F with a PMHx of PE on Coumadin, Optic Neuritis, Crohn's p/w one day history of headache that started when she woke up this morning. Head hurts on both sides and near the back. She frequently gets headaches that resolve with Tylenol. However this headache didn't resolve with Tylenol. She doesn't take Ibuprofen because she is on Warfarin. Pt feels that her headache is 5/10 after her treatments in the ER which included dilautid, morphine and fluids. ROS: Denies photophobia, denies vomiting, denies diarrhea, denies abdominal pain , denies dysuria, denies fevers, denies dizziness, denies falls. +visual disturbance in the right eye, seen by Dr. Marley as inpatient last month. Note is included in A/P. PMH - Crohn's disease with recent phlegmon/abscess - recent SBO - diverticulosis - internal hemorrhoids PSH: - multiple colonoscopies - EGD - tubal ligation Allergies: NKDA Social hx - active smoker x40 years, from 1PPD down to 1/2 PPD - no ETOH abuse FHx: - sister with bilateral mastectomies - another sister with diverticulosis/itis - mother with unspecified heart disease Past Medical/Surgical History Medical Problems: (1) Cellulitis Status: Resolved (2) Crohn's disease involving terminal ileum Status: Chronic (3) Crohns disease Status: Chronic (4) Pulmonary emboli Status: Resolved (5) SBO (small bowel obstruction) Status: Resolved Family History Patient reports no known family medical history. Social History Smoking Status: Current Every Day Smoker Drug Use: none Marital Status: Housing status: lives alone Occupational Status: unemployed Multi-Drug Resistant Organisms History of MDRO: No Allergies Coded Allergies: No Known Allergies (Unverified , 07/29/16) Home Medications Scheduled Adalimumab (Humira Pen), 80 MG SQ WK Albuterol Hfa (Ventolin Hfa), 2-4 PUFFS INH Q6H Aspirin (Aspirin Ec), 81 MG PO DAILY Atorvastatin (Lipitor), 20 MG PO DAILY Cholecalciferol (Vitamin D3), 2,000 INTER.UNIT PO QAM Cyanocobalamin (Vitamin B12), 1,000 MCG PO DAILY Docusate Sodium (Docusate Sodium), 100 MG PO BID Ferrous Sulfate (Iron), 325 MG PO DAILY Loratadine (Claritin), 10 MG PO DAILY Pantoprazole (Pantoprazole Sodium), 40 MG PO QAM Prednisone (Prednisone), 15 MG PO DAILY Probiotic Product (Digestive Advantage Probi), 1 CAP PO DAILY Warfarin Sodium (Coumadin), 1 TAB PO DAILY Scheduled PRN Tramadol HCl (Tramadol HCl), 50 MG PO Q6H PRN for Pain Trazodone Hcl (Trazodone), 50 MG PO HS PRN for Sleep Review of Systems Constitutional: No fever, No chills Eyes: No eye pain Respiratory: No cough, No sputum, No wheezing, No shortness of breath, No dyspnea on exertion Cardiovascular: No chest pain Abdomen: No nausea, No vomiting, No diarrhea, No constipation Genitourinary - Female: No dysuria Neurologic: No memory loss, No paralysis, No weakness, No numbness/tingling, No vertigo Psychiatric: No depression symptoms Physical Exam Vital Signs Date Time Temp Pulse Resp B/P (MAP) Pulse Ox O2 Delivery O2 Flow Rate FiO2 07/29/16 17:28 71 16 107/49 98 Room Air 07/29/16 16:29 76 14 108/57 98 Room Air 07/29/16 16:05 81 07/29/16 15:11 72 16 102/65 98 Room Air 07/29/16 13:17 72 16 108/60 100 Room Air 07/29/16 12:08 100 Room Air 07/29/16 12:04 81 07/29/16 11:36 36.9 85 20 162/81 99 Room Air General Appearance: WD/WN, + obese Eyes: PERRL, EOMI Respiratory/Chest: chest non-tender, lungs clear, no respiratory distress, no accessory muscle use, + pertinent finding (decreased air entry bilaterally) Cardiovascular: regular rate, rhythm, no edema, no gallop, no JVD, no murmur, normal peripheral pulses Abdomen/GI: normal bowel sounds, non tender, soft, no organomegaly, no pulsatile mass Back: no CVA tenderness Extremities/Musculoskelatal: no pedal edema, normal range of motion Neurologic/Psych: normal mood/affect, normal reflexes, oriented x 3 Skin: no rash Diagnostics Laboratory Results Results Past 24 Hours Test 07/29/16 11:30 07/29/16 13:45 Range/Units White Blood Count 7.40 4.8-10.8 K/uL Red Blood Count 4.63 4.2-5.4 M/uL Hemoglobin 15.2 12.0-16.0 g/dL Hematocrit 44.5 37-47 % Mean Corpuscular Volume 96.1 80-100 fL Mean Corpuscular Hemoglobin 32.8 25-34 pg Mean Corpuscular Hemoglobin Concent 34.2 32-36 g/dl Platelet Count 235 130-400 K/uL Mean Platelet Volume 10.3 7.4-10.4 fL Neutrophils (%) (Auto) 51.7 % Lymphocytes (%) (Auto) 34.5 % Monocytes (%) (Auto) 9.3 % Eosinophils (%) (Auto) 2.2 % Basophils (%) (Auto) 0.9 % Neutrophils # (Auto) 3.83 1.4-6.5 K/uL Lymphocytes # (Auto) 2.55 1.2-3.4 K/uL Monocytes # (Auto) 0.69 0.11-0.59 K/uL Eosinophils # (Auto) 0.16 0-0.5 K/uL Basophils # (Auto) 0.07 0-0.2 K/uL RDW Standard Deviation 53.1 36.4-46.3 fL RDW Coefficient of Variation 15.3 11.5-14.5 % Immature Granulocyte % (Auto) 1.4 % Immature Granulocyte # (Auto) 0.10 0.00-0.02 K/uL Neutrophils % (Manual) 53.1 % Lymphocytes % (Manual) 31.3 % Monocytes % (Manual) 10.4 % Eosinophils % (Manual) 1.7 % Basophils % (Manual) 0.9 % Myelocytes % 2.6 % Erythrocyte Sedimentation Rate 21 0-21 mm/hr Urine Color YELLOW Urine Appearance CLEAR CLEAR Urine pH 6.5 4.5-7.5 Urine Specific [place] 1.008 1.000-1.030 Urine Protein NEG NEG Urine Glucose (UA) NEG NEG Urine Ketones NEG NEG Urine Occult Blood NEG NEG Urine Nitrite NEG NEG Urine Bilirubin NEG NEG Urine Urobilinogen NEG NEG Urine Leukocyte Esterase NEG NEG Prothrombin Time 18.1 9.0-12.0 SECONDS Prothromb Time International Ratio 1.7 0.9-1.1 Activated Partial Thromboplast Time 34.5 21.0-31.0 SECONDS Partial Thromboplastin Ratio 1.3 Sodium Level 143 136-145 mmol/L Potassium Level 4.2 3.5-5.1 mmol/L Chloride Level 108 98-107 mmol/L Carbon Dioxide Level 28 21-32 mmol/L Anion Gap 7.0 3-11 mmol/L Blood Urea Nitrogen 15 7-18 mg/dl Creatinine 0.87 0.60-1.20 mg/dl Est Creatinine Clear Calc Drug Dose 89.5 ml/min Estimated GFR () 82.8 Estimated GFR (Non- 71.4 BUN/Creatinine Ratio 16.9 10-20 Random Glucose 80 70-99 mg/dl Calcium Level 8.8 8.5-10.1 mg/dl Magnesium Level 2.1 1.8-2.4 mg/dl Total Bilirubin 0.4 0.2-1 mg/dl Direct Bilirubin < 0.1 0-0.2 mg/dl Aspartate Amino Transf (AST/SGOT) 16 15-37 U/L Alanine Aminotransferase (ALT/SGPT) 27 12-78 U/L Alkaline Phosphatase 54 45-117 U/L Troponin I < 0.015 0-0.045 ng/ml C-Reactive Protein < 0.29 0-0.29 mg/dl Total Protein 6.2 6.4-8.2 gm/dl Albumin 3.1 3.4-5.0 gm/dl Lipase 129 73-393 U/L Thyroid Stimulating Hormone (TSH) 0.394 0.300-4.500 uIu/ml Microbiology Results 07/29/16 Urine Culture, Received Pending Diagnostic Radiology CT SCAN OF THE BRAIN WITHOUT IV CONTRAST CLINICAL HISTORY: Generalized weakness. Headache. COMPARISON STUDY: MRI of the brain dated 06/21/2016. TECHNIQUE: Unenhanced axial CT scan of the brain is performed from the vertex to the skull base. Automated dose control exposure was utilized. CT DOSE: 729.78 mGycm FINDINGS: Brain parenchyma: The brain parenchyma is normal in appearance. There is no hemorrhage, mass effect, or evidence of acute territorial ischemia by CT criteria. [place]-white matter is preserved. No extra-axial fluid collection is seen. Ventricles, sulci, cisterns: Normal in configuration. Intracranial vasculature: There is mild atherosclerotic calcification of the cavernous carotid arteries. Calvarium: Unremarkable. Sinuses and mastoids: The visualized paranasal sinuses are clear. The mastoid air cells are well pneumatized. Orbits: The bony orbits are grossly intact. IMPRESSION: There is no hemorrhage, mass effect, or evidence of acute territorial ischemia by CT criteria. PA CHEST WITH ABDOMINAL SERIES CLINICAL HISTORY: Left-sided abdominal pain. FINDINGS: A PA chest radiograph is compared to study dated 07/15/2016 and correlated with chest CT dated 06/08/2016. The cardiomediastinal silhouette is unremarkable. There is atherosclerotic calcification of the thoracic aorta. Chronic interstitial thickening is similar to previous. Mild bibasilar atelectasis is observed. No airspace consolidation, large pleural effusion, or pneumothorax is seen. The skeletal structures are osteopenic. Degenerative change is noted throughout the thoracic spine. The bony thorax is grossly intact. Supine and erect abdominal radiographs are compared to study dated 07/15/2016 and correlated with abdominal CT dated 06/23/2016. Again seen are distended and gas-filled loops of small bowel. Scattered air-fluid levels are seen on the upright view. No intraperitoneal free air is seen. There are no abnormal abdominal calcifications. There is moderate lumbar spondylosis and scoliosis. The bony pelvis appears intact. IMPRESSION: 1. No active disease in the chest. 2. Distended gas-filled loops of small bowel are similar to prior studies. This could represent small bowel obstruction or possibly ileus. Clinical correlation will be required. 3. No intraperitoneal free air is seen. Impression Assessment and Plan 61F with a PMHx of PE, Crohn's p/w one day history of headache. Pt received Dilautid and Morphine and IV fluids in the ER. After headache didn't resolve she was admitted by the ER physician. Plan is to give Diphenhydramine, 100mg IV Hydrocortisone and 15mg one Toradol and reevaluate in the AM. Headache x 1 day - 50mg Diphenhydramine now once. - 100mg IV Hydrocortisone Q8H up to 3 doses. - 15mg IV toradol once. - NSS at 125mls/hr. h/o Optic Neuritis (not completely resolved) - Saw Dr. Guo (sp?) and was diagnosed with optic neuritis recently. - Will order MRI brain combo for possible MS and nonspecific visual disturbances. - Optho note from 06/21/2016 Ms. Freeman has optic nerve disease in the right eye. It is difficult to state with certainty, the etiology of her right optic neuropathy, but I would lean towards an optic neuritis. Other possibilities would include an ischemic optic neuropathy. However, given her classic presentation with pain and a worsening course over the last 24 hours, optic neuritis is a more likely diagnosis. For that reason, I would recommend getting an MRI to look for any signs of MS. In addition, it may be advisable to consult neurology and start her on IV steroids to hasten her recovery. Following her discharge she should be seen in our office for further testing including visual field testing. PE - Diagnosed here on 06/08/16 "Extensive bilateral pulmonary emboli", no known provocation factor, pt states she is active. - Continue warfarin, INR 1.7 Crohn's (stable) - On Kari, pt recently lost a lot of weight. - Pt is on Prednisone, she doesn't remember why, either her crohn's or recent diagnosis of Optic Neuritis Smoker - pack a day for over 40 years. - Nicotine patch. - smoking cessation consult. Dispo: Obs, med surg, reg diet. DVT Proph: On warfarin. Code: Full I personally and independently interviewed and examined the patient I reviewed labs and imaging I agree with above mentioned physical exam, History and ROS I discussed and formulated the assessment and plan with Mrs. Chavarria 61 / F with a PMHx of PE, Crohn's on humara, optic neuritis in the past p/w acute headache. ROS aside from what is mentioned above, the rest of ROS is negative Physical exam; morbid obese, n mild distress, wet mucous membrane, decrease air entry both lungs Assessment: acute headache and blurring of vision possible migrain but can not R/O MS blurring of vision improved Plan: continue steroids/IVF/pain management Benadryl INR is 1.7, can give one dose of toradol MRI with contrast is headache is not resolved by tomorrow, consider neurologist consult Lexus BRUNO hospitalist VTE Prophylaxis VTE Risk Assessment Done? Y/N: Yes Risk Level: Moderate Resident Involvement: Resident Care Provided Care Provided: Adult Hospital Medicine
[2016-07-29] MEDS ORDERED: DOCUSATE SODIUM 100 MG CAP PO SCH (20:00)
[2016-07-29] MEDS ORDERED: ALBUTEROL HFA 8 GM INHALER INH PRN (20:30)
[2016-07-29] MEDS ORDERED: IV FLUIDS COMPLETED PRN (20:30)
[2016-07-29] MEDS: SODIUM CHLORIDE 0.9% 1000ML 1,000 ML IV SCH (21:54)
[2016-07-29] MEDS: DOCUSATE SODIUM 100 MG CAP PO SCH (21:55)
[2016-07-29] MEDS: HYDROCORTISONE IV 100 MG in SYRINGE 0 ML IV SCH (21:57)
[2016-07-29 22:00] VITALS: BP 111/73; PULSE 75; TEMP 36.7; O2SAT 98; Ht 167.6 cm; Wt 122.6 kg
[2016-07-29] MEDS ORDERED: HYDROCORTISONE IV 100 MG in SYRINGE 0 ML IV SCH (22:00)
[2016-07-29] MEDS ORDERED: GADAVIST IV PRN (22:00)
--- NOTE | 2016-07-29 22:09 | DIAGNOSTIC IMAGING REPORT ---
MRI OF THE BRAIN WITHOUT AND WITH IV CONTRAST CLINICAL HISTORY: Headache. Visual disturbances. History of optic neuritis. COMPARISON STUDY: 06/21/2016 , noncontrast head CT dated 07/29/2016 TECHNIQUE: MRI of the brain was performed from the vertex to the skull base utilizing various T1 and T2 weighted sequences. Following the IV administration of 12 mL of Gadavist contrast, additional enhanced images were obtained. FINDINGS: Sagittal T1, axial diffusion, proton density and T2 weighted axial, coronal FLAIR, and pre and post axial T1-weighted images were acquired. These were supplemented with post gadolinium coronal T1 weighted images. No intra or extra-axial mass lesions are visualized. Axial diffusion-weighted images reveal no evidence of acute or subacute infarction. There is no evidence of ventricular dilatation. Proton density T2-weighted and FLAIR images reveal a few punctate foci of increased FLAIR signal within the frontal white matter, likely on a small vessel basis. There are no abnormal flow voids. There is no evidence of pathologic enhancement. The previously identified subtle right optic nerve enhancement is no longer visualized. IMPRESSION: 1. Interval resolution of the previously described right optic nerve enhancement. 2. No evidence of acute or subacute infarction 3. No evidence of intracranial mass 4. Minimal foci of increased FLAIR signal within the white matter, likely on a small vessel basis Electronically signed by: Sacha Cash M.D. 07/29/2016 10:07 PM Dictated Date/Time: 07/29/2016 10:02 PM
[2016-07-29 23:01] VITALS: BP 103/64; PULSE 74; TEMP 36.7; O2SAT 96
[2016-07-29] MEDS: WARFARIN SOD 5 MG TAB PO SCH (23:43)
[2016-07-30] MEDS: TRAZODONE HCL 50 MG TAB PO PRN (01:27)
[2016-07-30] MEDS: HYDROCORTISONE IV 100 MG in SYRINGE 0 ML IV SCH ×2 (04:24→13:02)
[2016-07-30] MEDS: SODIUM CHLORIDE 0.9% 1000ML 1,000 ML IV SCH (04:24)
[2016-07-30 07:14] VITALS: BP 104/64; PULSE 77; TEMP 36.8; O2SAT 94
[2016-07-30] MEDS ORDERED: ATORVASTATIN 20 MG TAB PO SCH (08:00)
[2016-07-30] MEDS ORDERED: PANTOprazole SOD 40 MG TAB PO SCH (08:00)
[2016-07-30] MEDS ORDERED: NICOTINE 7 MG/24 HR TDSY TD SCH (08:00)
[2016-07-30] MEDS ORDERED: CHOLECALCIFEROL 1000 INTER.UNIT TAB PO SCH (08:00)
[2016-07-30] MEDS ORDERED: LORATADINE 10 MG TAB PO SCH (08:00)
[2016-07-30] MEDS ORDERED: WARFARIN SOD 5 MG TAB PO SCH (08:00)
[2016-07-30] MEDS ORDERED: ASPIRIN 81 MG ECTAB PO SCH (08:00)
[2016-07-30] MEDS: ATORVASTATIN 20 MG TAB PO SCH (08:02)
[2016-07-30] MEDS: ASPIRIN 81 MG ECTAB PO SCH (08:03)
[2016-07-30] MEDS: PANTOprazole SOD 40 MG TAB PO SCH (08:03)
[2016-07-30] MEDS: LORATADINE 10 MG TAB PO SCH (08:03)
[2016-07-30] MEDS: CHOLECALCIFEROL 1000 INTER.UNIT TAB PO SCH (08:03)
[2016-07-30] MEDS: DOCUSATE SODIUM 100 MG CAP PO SCH ×2 (08:03→21:52)
[2016-07-30] MEDS: NICOTINE 7 MG/24 HR TDSY TD SCH (08:04)
[2016-07-30 09:41] LABS: BASO % 0.4 %; BASO ABS # 0.03 K/uL (0-0.2); COMPLETE YES; EOS % 0.1 %; HEMATOCRIT 39.1 % (37-47); IG% 0.6 %; INR 1.7 (0.9-1.1); LYMPH % 17.5 %; LYMPH ABS # 1.25 K/uL (1.2-3.4); MEAN CELL VOLUME 95.1 fL (80-100); MEAN CORPUSCULAR HEMOGLOBIN 32.6 pg (25-34); MEAN CORPUSCULAR HGB CONC 34.3 g/dl (32-36); MEAN PLATELET VOLUME 9.6 fL (7.4-10.4); MONO % 2.5 %; NEUT % 78.9 %; PLATELET COUNT 208 K/uL (130-400); PROTHROMBIN TIME (PATIENT) 18.7 SECONDS (9.0-12.0); RED BLOOD COUNT 4.11 M/uL (4.2-5.4); WHITE BLOOD COUNT 7.13 K/uL (4.8-10.8)
[2016-07-30 10:09] LABS: BUN/CREATININE RATIO 17.5 (10-20); CREATININE 1.1 mg/dl (0.60-1.20); POTASSIUM 4.2 mmol/L (3.5-5.1)
[2016-07-30 10:27] LABS: CALCIUM 8.5 mg/dl (8.5-10.1)
[2016-07-30] MEDS: TRAMADOL HCL 50 MG TAB PO PRN ×2 (10:51→18:22)
[2016-07-30] MEDS ORDERED: ENOXAPARIN 120 MG/0.8 ML SYR SQ ONE (12:30)
--- NOTE | 2016-07-30 12:48 | Hospitalist Progress Note ---
Hospitalist Progress Note Date of Service Jul 30, 2016. Subjective Pt evaluation today including: conversation w/ patient Pt has been tapering down on her prednisone as directed and went down to 10mg a few days ago. She describes a h/o complex migraines with aura and left sided paresthesias followed by severe headache. This Rouse is posterior and behind eyes, severe but better today at 5/10 than yesterday was 10/10. No N/V, has mild photophobia. Has some LUQ abd pain constant for a few days, unclear if related to her bowels, has a lot of gas and feels like needs to have BM but hasn't All Other Systems: Reviewed and Negative Objective Vital Signs Date Time Temp Pulse Resp B/P (MAP) Pulse Ox O2 Delivery O2 Flow Rate FiO2 07/30/16 08:00 Room Air 07/30/16 07:14 36.8 77 16 104/64 (77) 94 Room Air 07/29/16 23:40 Room Air 07/29/16 23:01 36.7 74 18 103/64 (77) 96 Room Air 07/29/16 22:00 36.7 75 18 111/73 98 Room Air 07/29/16 19:24 64 11 130/72 99 Room Air 07/29/16 17:28 71 16 107/49 98 Room Air 07/29/16 16:29 76 14 108/57 98 Room Air 07/29/16 16:05 81 07/29/16 15:11 72 16 102/65 98 Room Air 07/29/16 13:17 72 16 108/60 100 Room Air Physical Exam General Appearance: WD/WN, no apparent distress, + obese Eyes: normal inspection, PERRL, EOMI, sclerae normal ENT: hearing grossly normal, pharynx normal Neck: supple, no adenopathy, thyroid normal, no JVD, trachea midline Respiratory/Chest: lungs clear, normal breath sounds, no respiratory distress, no accessory muscle use Cardiovascular: regular rate, rhythm, no edema, no murmur Abdomen: normal bowel sounds, non tender (except mild TTP LUQ w/o guarding or rebound), soft Extremities: non-tender, no calf tenderness Neurologic/Psychiatric: alert, normal mood/affect, oriented x 3 Skin: normal color, warm/dry, no rash Laboratory Results Last 24 Hours Test 07/29/16 13:45 07/30/16 09:14 Prothrombin Time 18.1 SECONDS 18.7 SECONDS Prothromb Time International Ratio 1.7 1.7 Activated Partial Thromboplast Time 34.5 SECONDS Partial Thromboplastin Ratio 1.3 Sodium Level 143 mmol/L 138 mmol/L Potassium Level 4.2 mmol/L 4.2 mmol/L Chloride Level 108 mmol/L 105 mmol/L Carbon Dioxide Level 28 mmol/L 23 mmol/L Anion Gap 7.0 mmol/L 10.0 mmol/L Blood Urea Nitrogen 15 mg/dl 19 mg/dl Creatinine 0.87 mg/dl 1.10 mg/dl Est Creatinine Clear Calc Drug Dose 89.5 ml/min 70.8 ml/min Estimated GFR () 82.8 62.3 Estimated GFR (Non- 71.4 53.8 BUN/Creatinine Ratio 16.9 17.5 Random Glucose 80 mg/dl 193 mg/dl Calcium Level 8.8 mg/dl 8.5 mg/dl Magnesium Level 2.1 mg/dl 2.0 mg/dl Total Bilirubin 0.4 mg/dl Direct Bilirubin < 0.1 mg/dl Aspartate Amino Transf (AST/SGOT) 16 U/L Alanine Aminotransferase (ALT/SGPT) 27 U/L Alkaline Phosphatase 54 U/L Troponin I < 0.015 ng/ml C-Reactive Protein < 0.29 mg/dl Total Protein 6.2 gm/dl Albumin 3.1 gm/dl Lipase 129 U/L Thyroid Stimulating Hormone (TSH) 0.394 uIu/ml White Blood Count 7.13 K/uL Red Blood Count 4.11 M/uL Hemoglobin 13.4 g/dL Hematocrit 39.1 % Mean Corpuscular Volume 95.1 fL Mean Corpuscular Hemoglobin 32.6 pg Mean Corpuscular Hemoglobin Concent 34.3 g/dl Platelet Count 208 K/uL Mean Platelet Volume 9.6 fL Neutrophils (%) (Auto) 78.9 % Lymphocytes (%) (Auto) 17.5 % Monocytes (%) (Auto) 2.5 % Eosinophils (%) (Auto) 0.1 % Basophils (%) (Auto) 0.4 % Neutrophils # (Auto) 5.62 K/uL Lymphocytes # (Auto) 1.25 K/uL Monocytes # (Auto) 0.18 K/uL Eosinophils # (Auto) 0.01 K/uL Basophils # (Auto) 0.03 K/uL RDW Standard Deviation 51.6 fL RDW Coefficient of Variation 14.7 % Immature Granulocyte % (Auto) 0.6 % Immature Granulocyte # (Auto) 0.04 K/uL Assessment and Plan 61 yo female with h/o Crohn's ileitis, frequent SBO, recent PE, optic neuritis, hypothyroidism, vitamin D deficiency, here with intractable headache. 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 MRI brain normal, no signs of MS or any further optic neuritis -Improving on IV HC and prednisone 15mg -continue prednisone at 15mg and taper down by 2.5mg every week -continue IV HC for 1 more day then hopefully dc to home -dc IVFs -continue tramadol prn Crohn's ileitis : -started Humira on 07/15, tapering down on chronic prednisone -tramadol prn pain Recent PE: provoked by sedentary lifestyle, multiple hospitalizations, autoimmune disease and inflammation- INR subtherapeutic at 1.7 -bridge with full dose Lovenox, then dc Lovenox when INR therapeutic -continue coumadin at 5mg daily -follow INR Right Optic neuritis: resolved, follows with ophthalmology, MRI brain shows resolution -is supposed to f/u with Ophtho and Neuro Vit D deficiency-Vit D level 12 in 07/2016 -continue 2000 units daily Abnormal TSH-last admission was low with normal FT3 anf FT4--> subclinical hyperthyroidism -follow as outpatient -consider Endo referral as outpt Proph-coumadin, Lovenox Dispo- to home tomorrow
[2016-07-30 15:59] VITALS: BP 149/79; PULSE 77; TEMP 36.8; O2SAT 95
[2016-07-30] MEDS: WARFARIN SOD 5 MG TAB PO SCH (16:51)
[2016-07-30] MEDS: ENOXAPARIN 120 MG/0.8 ML SYR SQ SCH (21:52)
[2016-07-31 00:06] VITALS: BP 111/70; PULSE 70; TEMP 36.6; O2SAT 94
[2016-07-31 00:41] LABS: MANUAL MICROSCOPIC REQUIRED? NO; REVIEW REQ? NO; URINE APPEARANCE CLEAR (CLEAR); URINE BILIRUBIN NEG (NEG); URINE COLOR YELLOW; URINE NITRITE NEG (NEG); URINE PH 5.5 (4.5-7.5); URINE SPECIFIC GRAVITY 1.015 (1.000-1.030); UROBILINOGEN NEG (NEG)
[2016-07-31] MEDS: TRAMADOL HCL 50 MG TAB PO PRN ×2 (01:29→09:08)
[2016-07-31] MEDS: TRAZODONE HCL 50 MG TAB PO PRN (01:29)
[2016-07-31] MEDS: LORATADINE 10 MG TAB PO SCH (07:27)
[2016-07-31] MEDS: DOCUSATE SODIUM 100 MG CAP PO SCH (07:27)
[2016-07-31] MEDS: ASPIRIN 81 MG ECTAB PO SCH (07:27)
[2016-07-31] MEDS: PANTOprazole SOD 40 MG TAB PO SCH (07:28)
[2016-07-31] MEDS: CHOLECALCIFEROL 1000 INTER.UNIT TAB PO SCH (07:28)
[2016-07-31] MEDS: NICOTINE 7 MG/24 HR TDSY TD SCH (07:28)
[2016-07-31] MEDS: ATORVASTATIN 20 MG TAB PO SCH (07:28)
[2016-07-31 07:44] VITALS: BP 115/68; PULSE 82; TEMP 36.8; O2SAT 98
[2016-07-31 08:00] LABS: BASO % 0.3 %; BASO ABS # 0.02 K/uL (0-0.2); COMPLETE YES; EOS % 1.8 %; HEMATOCRIT 38.8 % (37-47); IG% 0.7 %; LYMPH % 32.6 %; LYMPH ABS # 2.38 K/uL (1.2-3.4); MEAN CELL VOLUME 94.6 fL (80-100); MEAN CORPUSCULAR HEMOGLOBIN 30.5 pg (25-34); MEAN CORPUSCULAR HGB CONC 32.2 g/dl (32-36); MEAN PLATELET VOLUME 9.6 fL (7.4-10.4); MONO % 9.7 %; NEUT % 54.9 %; PLATELET COUNT 198 K/uL (130-400)
[2016-07-31 08:23] LABS: INR 2.5 (0.9-1.1); PROTHROMBIN TIME (PATIENT) 28.1 SECONDS (9.0-12.0)
[2016-07-31 08:35] LABS: BUN/CREATININE RATIO 20.3 (10-20); CREATININE 0.92 mg/dl (0.60-1.20)
[2016-07-31 08:36] LABS: CALCIUM 8.7 mg/dl (8.5-10.1); MAGNESIUM 2.3 mg/dl (1.8-2.4); POTASSIUM 4.1 mmol/L (3.5-5.1)
[2016-07-31] MEDS: ENOXAPARIN 120 MG/0.8 ML SYR SQ SCH (09:08)
[2016-07-31] MEDS ORDERED: PRED10TA PO (10:09)
--- NOTE | 2016-07-31 10:19 | Discharge Instructions ---
Discharge Instructions Date of Service Jul 31, 2016. Admission Reason for Admission: Headache Discharge Discharge Diagnosis / Problem: Headache Discharge Goals Goal(s): Decrease discomfort, Improve function, Increase independence, Improve disease control Activity Recommendations Activity Limitations: resume your previous activity Lifting Limitations: gradually increase as tolerated Exercise/Sports Limitations: gradually increase as tolerated May Resume Sexual Activity: when tolerated Shower/Bathe: no limitations Driving or Machine Use: no limitations (after seen by your PCP) . Instructions / Follow-Up Instructions / Follow-Up You were admitted to [facility] with headache and diagnosed with headache secondary to prednisone taper. During your stay here you were treated with steriods and pain management. Imaging studies which were completed include Brain MRI which showed resolution of right optic neuritis, and no other acute findings. enhancement. Medication: Continue taking a prednisone taper as described below: Take 15 mg x 5 more days to complete 1 week, then take 12.5 mg x 1 week, then 10 mg x 1 week, then 7.5 mg x 1 week, then 5 mg x 1 week, then 2.5 mg x 1 week then STOP. You should finish this prednisone on Sep 16. Please ask your PCP for a prescription of prednisone at your next follow up. You were not given a prescription as you already have prednisone left over from the last time it was sent. Continue taking Humira injections as scheduled for Crohn's disease next - Please call the GI office and make sure you have the pen for injection sent to your home. HOLD Coumadin tonight. Your INR at time of discharge was 2.5. Resume taking this tomorrow with your regular dosage. Have your INR checked on Wednesday morning by home health. Follow up: Follow up with your Primary Care Provider within 1 week. Current Hospital Diet Patient's current hospital diet: Regular Diet Discharge Diet Recommended Diet: AHA Diet (Heart Healthy) Procedures Procedures Performed: None Pending Studies Studies pending at discharge: no Laboratory Results Hemoglobin A1c Test 06/21/16 10:55 Range/Units Estimated Average Glucose 114 mg/dl Hemoglobin A1c 5.6 4.5-5.6 % Lipid Panel Test 06/22/16 06:25 Range/Units Triglycerides Level 166 H 0-150 mg/dl Cholesterol Level 254 H 0-200 mg/dl HDL Cholesterol 62 mg/dl Cholesterol/HDL Ratio 4.1 LDL Cholesterol, Calculated 159 mg/dl Medical Emergencies . Who to Call and When: Medical Emergencies: If at any time you feel your situation is an emergency, please call 911 immediately. . Non-Emergent Contact Non-Emergency issues call your: Primary Care Provider Call Non-Emergent contact if: you have a fever, temperature is above 100.5, your pain is not controlled, your pain is worsening, you have any medication questions . Past History Medical & Surgical History: (1) Headache (2) Crohns disease . "Provider Documentation" section prepared by Patricia Shepard. . VTE Core Measure Inpt VTE Proph given/why not?: Enoxaparin (Lovenox)MARYBETH, T.E.Dionicio Walker, SCD's
[2016-07-31] MEDS ORDERED: FLUCONAZOLE 50 MG TAB PO ONE (10:45)
[2016-07-31 11:26] VITALS: BP 115/68; PULSE 82; TEMP 36.8; O2SAT 98
--- NOTE | 2016-07-31 11:38 | Discharge Summary ---
Discharge Summary Date of Service Jul 31, 2016. (Marilu Shepard PA-C) Discharge Summary Admission Date: Jul 29, 2016 at 19:07 Discharge Date: Jul 31, 2016 Discharge Disposition: Home Principal Diagnosis: Headache Problems/Secondary Diagnoses: h/o Crohn's ileitis, frequent SBO, recent PE, optic neuritis, hypothyroidism, vitamin D deficiency Procedures: CT SCAN OF THE BRAIN WITHOUT IV CONTRAST 07/29/16 IMPRESSION: There is no hemorrhage, mass effect, or evidence of acute territorial ischemia by CT criteria. PA CHEST WITH ABDOMINAL SERIES 07/29/16 IMPRESSION: 1. No active disease in the chest. 2. Distended gas-filled loops of small bowel are similar to prior studies. This could represent small bowel obstruction or possibly ileus. Clinical correlation will be required. 3. No intraperitoneal free air is seen. MRI OF THE BRAIN WITHOUT AND WITH IV CONTRAST 07/29/16 IMPRESSION: 1. Interval resolution of the previously described right optic nerve enhancement. 2. No evidence of acute or subacute infarction 3. No evidence of intracranial mass 4. Minimal foci of increased FLAIR signal within the white matter, likely on a small vessel basis Consultations: None (Marilu Shepard PA-C) Problems/Secondary Diagnoses: Subclinical hyperthyroidism Morbid obesity History of complex migraines Current smoker Vaginal candidiasis (Namita Grayson MD) Medication Reconciliation Changed Medications: Prednisone (Prednisone) 10 Mg Tab 15 MG PO DAILY, #24 TAB (Changed from: x 1 week then 10mg daily x 1 week then 5mg daily x 1 week then STOP) 15mg daily x 1 wk, then 12.5mg daily x 1 wk, 10mg daily x 1 wk, 7.5mg daily x 1 wk, 5mg daily x 1 wk, 2.5mg daily x 1 wk. Continued Medications: Adalimumab (Humira Pen) 40 Mg/0.8 Ml Kit 80 MG SQ WK, #1 DUE on 07/21/16, then 40mg sq every other week after that Albuterol Hfa (Ventolin Hfa) 200 Puffs/37953 Mcg Aers 2-4 PUFFS INH Q6H, #1 INHALER Aspirin (Aspirin Ec) 81 Mg Tab 81 MG PO DAILY Atorvastatin (Lipitor) 20 Mg Tab 20 MG PO DAILY, TAB Cholecalciferol (Vitamin D3) 1,000 Inter.unit Tab 2000 INTER.UNIT PO QAM for 30 Days, TAB OTC Cyanocobalamin (Vitamin B12) 1,000 Mcg Tab 1000 MCG PO DAILY Docusate Sodium (Docusate Sodium) 100 Mg Cap 100 MG PO BID for 30 Days, #60 CAP Ferrous Sulfate (Iron) 325 Mg Tab 325 MG PO DAILY Loratadine (Claritin) 10 Mg Tab 10 MG PO DAILY, TAB Pantoprazole (Pantoprazole Sodium) 40 Mg Tab 40 MG PO QAM for 30 Days, #30 TAB Probiotic Product (Digestive Advantage Probi) 1 Chw Chw 1 CAP PO DAILY Tramadol HCl (Tramadol HCl) 50 Mg Tab 50 MG PO Q6H PRN for Pain, #30 TAB Trazodone Hcl (Trazodone) 50 Mg Tab 50 MG PO HS PRN for Sleep, TAB Warfarin Sodium (Coumadin) 5 Mg Tab 1 TAB PO DAILY for 90 Days, #90 TAB 1 Refill Discharge Exam The patient was seen and examined this morning. Pt reports doing well today. She denies any headache. She has a mild left upper abdominal pain but that this is chronic in nature and better than normal today. She is eating and drinking without difficulty. Pt is anticipating discharge to home today. Review of Systems: Constitutional: No fever, No chills, No fatigue Eyes: No worsening of vision ENT: No sore throat, No tinnitus, No trouble swallowing Respiratory: No cough, No shortness of breath, No dyspnea on exertion Cardiovascular: No chest pain, No palpitations Abdomen: No pain, No nausea, No vomiting, No diarrhea, No constipation Musculoskeletal: No joint pain, No swelling, No calf pain Genitourinary - Female: + vaginal discharge, No dysuria Neurologic: No numbness/tingling Endocrine: No fatigue Integumentary: No rash, No itch Physical Exam: General Appearance: WD/WN, no apparent distress, + obese Eyes: normal inspection, EOMI ENT: hearing grossly normal, pharynx normal Neck: supple, no JVD Respiratory/Chest: chest non-tender, lungs clear, normal breath sounds, no respiratory distress, no accessory muscle use Cardiovascular: regular rate, rhythm, no murmur, normal peripheral pulses Abdomen / GI: normal bowel sounds, non tender, soft Extremities: normal inspection, no calf tenderness, no pedal edema Neurologic/Psychiatric: alert, normal mood/affect, oriented x 3 Skin: normal color, warm/dry (Marilu Shepard PA-C) Hospital Course H&P per Barrie Luque MD. resident Source: patient 61F with a PMHx of PE on Coumadin, Optic Neuritis, Crohn's p/w one day history of headache that started when she woke up this morning. Head hurts on both sides and near the back. She frequently gets headaches that resolve with Tylenol. However this headache didn't resolve with Tylenol. She doesn't take Ibuprofen because she is on Warfarin. Pt feels that her headache is 5/10 after her treatments in the ER which included dilautid, morphine and fluids. Vital Signs Date Time Temp Pulse Resp B/P (MAP) Pulse Ox O2 Delivery O2 Flow Rate FiO2 07/29/16 17:28 71 16 107/49 98 Room Air 07/29/16 16:29 76 14 108/57 98 Room Air 07/29/16 16:05 81 07/29/16 15:11 72 16 102/65 98 Room Air 07/29/16 13:17 72 16 108/60 100 Room Air 07/29/16 12:08 100 Room Air 07/29/16 12:04 81 07/29/16 11:36 36.9 85 20 162/81 99 Room Air General Appearance: WD/WN, + obese Eyes: PERRL, EOMI Respiratory/Chest: chest non-tender, lungs clear, no respiratory distress, no accessory muscle use, + pertinent finding (decreased air entry bilaterally) Cardiovascular: regular rate, rhythm, no edema, no gallop, no JVD, no murmur, normal peripheral pulses Abdomen/GI: normal bowel sounds, non tender, soft, no organomegaly, no pulsatile mass Back: no CVA tenderness Extremities/Musculoskelatal: no pedal edema, normal range of motion Neurologic/Psych: normal mood/affect, normal reflexes, oriented x 3 Skin: no rash Hospital Course: 61 yo F admitted with Intractable ROUSE, h/o complex migraines found to be due to abrupt taper of prednisone. Imaging studies including a MRI of the brain and CT were obtained and negative. MRI acutally showed improvement and resolved optic neuritis from previous admission. Pt was discharged on slow taper of prednisone , and scheduled to see her PCP within 1-2 weeks. 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 MRI brain normal, no signs of MS or any further optic neuritis -Improving on IV HC and prednisone 15mg -continue prednisone at 15mg and taper down by 2.5mg every week -dc IVFs -continue tramadol prn Crohn's ileitis : -started Humira on 07/15, tapering down on chronic prednisone, next injection due next per pt report. -tramadol prn pain Recent PE: provoked by sedentary lifestyle, multiple hospitalizations, autoimmune disease and inflammation- INR subtherapeutic at 1.7 -bridge with full dose Lovenox, then dc Lovenox when INR therapeutic -continue coumadin at 5mg daily -Pt has been instructed to HOLD coumadin tonight, 07/31, and resume normal dosage tomorrow. - INR needs to be checked on Wednesday Right Optic neuritis: resolved, follows with ophthalmology, MRI brain shows resolution -is supposed to f/u with Ophtho and Neuro Vit D deficiency-Vit D level 12 in 07/2016 -continue 2000 units daily Abnormal TSH-last admission was low with normal FT3 anf FT4--> subclinical hyperthyroidism -follow as outpatient -consider Endo referral as outpt Proph-coumadin, Lovenox Dispo- to home today Total Time Spent: Greater than 30 minutes This includes examination of the patient, discharge planning, medication reconciliation, and communication with other providers. (Marilu Shepard PA-C) Discharge Instructions Please refer to the electronic Patient Visit Report (Discharge Instructions) for additional information. (Marilu Shepard PA-C) Follow-Up Follow up with your Primary Care Provider within 1 week. INR check on Wednesday08/03/16 (Marilu Shepard PA-C) Additional Copies To Oc Sesay PA-C Reviewed: Pt Seen/Exam by Me (Namita Grayson MD) History Physician Rn Midwife Supervision Note: I interviewed and examined the patient. Discussed with GEORGINA Shepard and agree with findings and plan as documented in the note. Any exceptions or clarifications are listed here: Pt admitted with severe headache unlike her usual headaches. MRI brain was without abnormal findings. ROUSE may have been related to either too fast of a taper off her prednisone, or could be side effect of her Humira. Pain did seem to be almost completely resolved after receiving IV hydrocortisone and going back up to prednisone 15mg daily. She was also having left upper quadrant abdominal pain. She has persistent dilated loops of small bowel on her abdominal xray which is likely related to her Crohn's stenosing ileitis. She was eating and drinking and having BMs during her hospital course. Her INR was subtherapeutic initially but was in fact up to 2.5 on the day of discharge. She was complaining of vaginal discharge and burning/itching and was given a one time dose of Diflucan. Because of Diflucan's interaction with coumadin, it is recommended she hold one dose of coumadin for this evening and then restart her usual dose tomorrow. She should check her INR through her home RN agency in 3 days. Physical Exam General Appearance: WD/WN, no apparent distress, + obese Eyes: normal inspection, PERRL, EOMI, sclerae normal ENT: hearing grossly normal, pharynx normal Neck: supple, no adenopathy, thyroid normal, no JVD, trachea midline Respiratory/Chest: lungs clear, normal breath sounds, no respiratory distress, no accessory muscle use Cardiovascular: regular rate, rhythm, no edema, no murmur Abdomen: normal bowel sounds, non tender (except mild TTP LUQ and RLQ w/o guarding or rebound), soft, morbidly obese Extremities: non-tender, no calf tenderness Neurologic/Psychiatric: alert, normal mood/affect, oriented x 3 Skin: normal color, warm/dry, no rash Documented By: Namita Grayson (Namita Grayson MD) Assessment/Plan 61 yo female with h/o Crohn's ileitis, frequent SBO, recent PE, optic neuritis, hypothyroidism, vitamin D deficiency, here with intractable headache. 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 MRI brain normal, no signs of MS or any further optic neuritis -Improving on IV HC and prednisone 15mg -continue prednisone at 15mg and taper down by 2.5mg every week -continue IV HC for 1 more day then hopefully dc to home -dc IVFs -continue tramadol prn Crohn's ileitis : -started Humira on 07/15, tapering down on chronic prednisone -tramadol prn pain Recent PE: provoked by sedentary lifestyle, multiple hospitalizations, autoimmune disease and inflammation- INR subtherapeutic at 1.7 -bridge with full dose Lovenox, then dc Lovenox when INR therapeutic -continue coumadin at 5mg daily -follow INR Right Optic neuritis: resolved, follows with ophthalmology, MRI brain shows resolution -is supposed to f/u with Ophtho and Neuro Vit D deficiency-Vit D level 12 in 07/2016 -continue 2000 units daily Abnormal TSH-last admission was low with normal FT3 anf FT4--> subclinical hyperthyroidism -follow as outpatient -consider Endo referral as outpt Proph-coumadin, Lovenox Dispo- to home tomorrow (Namita Grayson MD)
[2016-08-18] MEDS ORDERED: CMD75 PO (11:43)
[2016-08-18] MEDS ORDERED: LVNIS120 SQ (11:43)
[2016-08-18] MEDS ORDERED: MRLP17X PO (11:52)
[2016-08-18] MEDS ORDERED: PRD10 PO (11:52)
[2016-09-29] MEDS ORDERED: PRD5 PO (09:14)
[2016-11-17] MEDS ORDERED: ZYR10 PO (12:37)
[2016-11-17] MEDS ORDERED: NICO14DI5 TD (12:37)
== END 2016-07-31 13:51 | disposition home health service (06) ==
LOC: EDBD 11:14 → C.EDC 11:15 → C.MS4W 19:07 → ENRESERV 19:15
PROVIDERS: ADMIT Internal Medicine; ATTEND Family Medicine
DX: R51 Headache (principal); E03.9 Hypothyroidism, unspecified; K50.90 Crohn's disease, unspecified, without complications; H53.8 Other visual disturbances; E55.9 Vitamin D deficiency, unspecified; F17.200 Nicotine dependence, unspecified, uncomplicated; H46.9 Unspecified optic neuritis; K52.9 Noninfective gastroenteritis and colitis, unspecified; Z79.82 Long term (current) use of aspirin; Z79.899 Other long term (current) drug therapy; Z79.01 Long term (current) use of anticoagulants

== ENCOUNTER 2016-08-15 22:19 | Inpatient (IN) | payer OTHER ==
[~2016-08-15] VITALS: Ht 167.6 cm; Wt 121.2 kg
[~2016-08-15 22:19] MED LIST changes: +ATOR-22 PO; -NICO14DI9 TD; -WARF4TAB PO; +WARF5TAB90 PO
[2016-08-16 00:22] VITALS: BP 140/79; PULSE 59; TEMP 36.7; Ht 167.6 cm; Wt 121.2 kg
[2016-08-16] MEDS ORDERED: POLYETHYLENE (MIRALAX) 17 GM PACK PO PRN (01:00)
[2016-08-16] MEDS ORDERED: TRAMADOL HCL 50 MG TAB PO PRN (01:00)
[2016-08-16] MEDS ORDERED: ZOLPIDEM TARTRATE 5 MG TAB PO PRN (01:00)
[2016-08-16] MEDS ORDERED: ALUMINUM/MAGNESIUM/SIMETH (MAALOX MAX) 30 ML UDC PO PRN (01:00)
[2016-08-16] MEDS ORDERED: ONDANSETRON INJ 2 MG/ML 2 ML VIAL IV PRN (01:00)
[2016-08-16] MEDS ORDERED: ACETAMINOPHEN 325 MG TAB PO PRN (01:00)
[2016-08-16] MEDS ORDERED: ALBUTEROL HFA 8 GM INHALER INH PRN (01:00)
[2016-08-16] MEDS ORDERED: MAGNESIUM HYDROXIDE SUSP 30 ML UDC PO PRN (01:00)
--- NOTE | 2016-08-16 01:02 | History and Physical ---
History & Physical Date & Time of Service: Aug 16, 2016 at 00:55 Chief Complaint: SBO Primary Care Physician: Oc Sesay PA-C History of Present Illness Source: patient Ms Freeman is a 61 yo F who presents as a direct admission from [facility] with a small bowel obstruction. She reports she has known bilateral PE' s, for which she is on Coumadin, and Crohn's disease, for which she sees Aby MADDOX. She reports she woke up today with pain on her right side which became more severe throughout the day. She reports she had a bowel movement earlier in the day, and also noticed blood in her underwear. She thought this was vaginal bleeding and was concerned since last time this occurred she had a supra-therapeutic INR, so she went to the hospital. She was found to have an INR of 1.2. She denies any further bleeding at this time. She reports she also has a headache as well. In [place], labs were unremarkable, apart from a subtherapeutic INR, and she had a CT head which ruled out an intracranial process and showed L ethmoid sinus disease. A CTA of the chest confirms her small PEs. A CT ABD & PELVIS reported "wall thickening of the distal/terminal ileum with adjacent stranding compatible w/hx of Crohn's. There is dilatation of the proximal bowel raising possibility of partial obstruction. Prominent adjacent mesenteric nodular densities again noted. No organized fluid collections or free air." Past Medical/Surgical History Medical Problems: (1) Cellulitis Status: Resolved (2) Crohn's disease involving terminal ileum Status: Chronic (3) Crohns disease Status: Chronic (4) Pulmonary emboli Status: Resolved (5) SBO (small bowel obstruction) Status: Resolved PSHx: Bilateral tubal ligation Family History Patient reports no known family medical history. No pertinent FHx Social History Smoking Status: Current Every Day Smoker Drug Use: none Marital Status: Housing status: lives alone Occupational Status: unemployed Multi-Drug Resistant Organisms History of MDRO: No Allergies Coded Allergies: No Known Allergies (Unverified , 07/29/16) Home Medications Scheduled Adalimumab (Humira Pen), 80 MG SQ WK Albuterol Hfa (Ventolin Hfa), 2-4 PUFFS INH Q6H Aspirin (Aspirin Ec), 81 MG PO DAILY Atorvastatin (Lipitor), 20 MG PO DAILY Cholecalciferol (Vitamin D3), 2,000 INTER.UNIT PO QAM Cyanocobalamin (Vitamin B12), 1,000 MCG PO DAILY Docusate Sodium (Docusate Sodium), 100 MG PO BID Ferrous Sulfate (Iron), 325 MG PO DAILY Loratadine (Claritin), 10 MG PO DAILY Pantoprazole (Pantoprazole Sodium), 40 MG PO QAM Prednisone (Prednisone), 15 MG PO DAILY Probiotic Product (Digestive Advantage Probi), 1 CAP PO DAILY Warfarin Sodium (Coumadin), 1 TAB PO DAILY Scheduled PRN Tramadol HCl (Tramadol HCl), 50 MG PO Q6H PRN for Pain Trazodone Hcl (Trazodone), 50 MG PO HS PRN for Sleep Review of Systems See HPI for pertinent positives & negatives. A total of 10 systems reviewed and were otherwise negative. Physical Exam Vital Signs VS per EMR. General Appearance: WD/WN, no apparent distress, + obese Head: normocephalic, atraumatic Eyes: normal inspection, PERRL ENT: hearing grossly normal Neck: supple, no JVD Respiratory/Chest: lungs clear, normal breath sounds, no respiratory distress Cardiovascular: regular rate, rhythm, no murmur, normal peripheral pulses Abdomen/GI: soft, + distended, + pertinent finding (mild tenderness to right quadrants. no rebound or guarding. active bowel sounds.) Back: no CVA tenderness, no muscle spasm Extremities/Musculoskelatal: no calf tenderness, no pedal edema Neurologic/Psych: alert, normal mood/affect, oriented x 3 Skin: no rash Diagnostics Laboratory Results Hb 14.9, Hct 44.1, WBC 7.8 CMP unremarkable INR 1.32 Cardiac enzymes negative Urinalysis unremarkable Diagnostic Radiology From [facility], reports not yet uploaded, see summary of results in HPI. EKG From [facility] NSR, HR 72, no ST elevations Impression Assessment and Plan 61 yo F with known's Crohns, found to have partial SBO SBO - Pt is hungry now, not actively vomiting, and had a BM yesterday morning. Will provide her clear liquids and advance as tolerated. No indication for NG tube at this time. - IV fluids Crohn's Disease - Will consult GI - Continue home Humira (?need to clarify her home dosing regime) - May need adjustment of her current steroid taper, is on 10mg prednisone at this time Headache - Tramadol q6h (home dosing) Pulmonary embolism with subtherapeutic INR - Will bridge w/Lovenox and provide 5mg Coumadin tomorrow Vaginal bleeding - No further evidence, continue to monitor, likely needs WIRELESS TELEGRAPHER referral as OP as is post-menopausal VTE: Lovenox/Coumadin DISPO: Admitted to Med/Surg CODE STATUS: Full Resident Physician Supervision Note: Pt seen/examined independently. I discussed the case with the resident and agree with the findings and plan as documented in the note. Any exceptions or clarifications are listed here: 61 y/o F Hx Crohns recent admissions for B/L PEs and migraines - on Humira for her Crohns Presents from [place] where she had been assessed for abd pain, nausea - fiund to have a partial SBO and transferred as they do not have a surgical service She was requesting food on arrival at [facility] OE AAO x 3 S1,2 R CTAB NT, ND No CCE P: clears, symptomatic treatment If resolved would f/u with GI to insure that this is not Humira failure Cont Coumadin for PE - she was provided a dose of Lovenox for a subtherapeutic INR Documented By: Lucho Reyes Level of Care Med/Surg Resuscitation Status FULL RESUSCITATION VTE Prophylaxis VTE Risk Assessment Done? Y/N: Yes Risk Level: Moderate Given or contraindicated: Warfarin (Coumadin) Resident Tracking Resident Involvement: Resident Care Provided Care Provided: Adult Hospital Medicine
[2016-08-16] MEDS ORDERED: ENOXAPARIN 120 MG/0.8 ML SYR SQ ONE (01:30)
[2016-08-16 06:25] LABS: MEAN CELL VOLUME 94.1 fL (80-100); MEAN CORPUSCULAR HEMOGLOBIN 31.3 pg (25-34); MEAN CORPUSCULAR HGB CONC 33.3 g/dl (32-36); PLATELET COUNT 219 K/uL (130-400); RED BLOOD COUNT 4.25 M/uL (4.2-5.4); WHITE BLOOD COUNT 6.68 K/uL (4.8-10.8)
[2016-08-16 06:35] LABS: INR 1.3 (0.9-1.1); PROTHROMBIN TIME (PATIENT) 14.3 SECONDS (9.0-12.0)
[2016-08-16 06:52] VITALS: BP 132/73; PULSE 61; TEMP 36.4; O2SAT 93
[2016-08-16 07:16] LABS: CREATININE 0.91 mg/dl (0.60-1.20)
[2016-08-16] MEDS: ASPIRIN 81 MG ECTAB PO SCH (08:31)
[2016-08-16] MEDS: DOCUSATE SODIUM 100 MG CAP PO SCH ×2 (08:31→21:01)
[2016-08-16] MEDS: LORATADINE 10 MG TAB PO SCH (08:31)
[2016-08-16] MEDS: ATORVASTATIN 20 MG TAB PO SCH (08:32)
[2016-08-16] MEDS: CHOLECALCIFEROL 1000 INTER.UNIT TAB PO SCH (08:32)
[2016-08-16] MEDS: PANTOprazole SOD 40 MG TAB PO SCH (08:32)
[2016-08-16] MEDS ORDERED: NICOTINE 14 MG/24 HR TDSY TD ONE (09:22)
[2016-08-16 11:33] VITALS: BP 152/85; PULSE 69; O2SAT 98
--- NOTE | 2016-08-16 11:49 | Hospitalist Progress Note ---
Hospitalist Progress Note Date of Service Aug 16, 2016. (Pete Castillo,P.A.) Subjective Pt evaluation today including: conversation w/ patient, physical exam, chart review, lab review, review of studies, conversation w/ senior staff consultant, review of inpatient medication list Mrs. 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 if dilated small could be a pre-stenotic dilatation). Patient DENIES any nausea, vomiting, abdominal distention, or bloating. Patient is tolerating clear liquid diet.....and she's requesting advancement of diet because "I am so hungry". The presence of an appetite would suggest that she is NOT obstructed, partially obstructed, or with an ileus > Patient continues to have RLQ discomfort but has been passing flatus. No BM since yesterday. Patient typically follows with Dr. Desir and Aby MADDOX. Wants to remain on inpatient status until she is seen by her usual GI team. (Pete Castillo,P.A.) Medications Current Inpatient Medications Medications (Trade) Dose Ordered Sig/Rachael Route Start Time Stop Time Status Last Admin Dose Admin Acetaminophen (Tylenol Tab) 650 mg Q4H PRN PO 08/16/16 01:00 09/15/16 00:59 Al Hydrox/Mg Hydrox/Simethicone (Maalox Max Susp) 15 ml Q4H PRN PO 08/16/16 01:00 09/15/16 00:59 Magnesium Hydroxide (Milk Of Magnesia Susp) 30 ml Q6H PRN PO 08/16/16 01:00 09/15/16 00:59 Polyethylene (Miralax Powder Packet) 17 gm DAILY PRN PO 08/16/16 01:00 09/15/16 00:59 Zolpidem Tartrate (Ambien Tab) 5 mg HSZ PRN PO 08/16/16 01:00 09/15/16 00:59 Ondansetron HCl (Zofran Inj) 4 mg Q6H PRN IV 08/16/16 01:00 09/15/16 00:59 Albuterol (Ventolin Hfa Inhaler) 2 puffs Q6H PRN INH 08/16/16 01:00 09/15/16 00:59 Aspirin (Ecotrin Tab) 81 mg DAILY PO 08/16/16 09:00 09/15/16 08:59 08/16/16 08:31 81 MG Atorvastatin Calcium (Lipitor Tab) 20 mg DAILY PO 08/16/16 09:00 09/15/16 08:59 08/16/16 08:32 20 MG Cholecalciferol (Vitamin D Tab) 2,000 inter.unit QAM PO 08/16/16 09:00 09/15/16 08:59 08/16/16 08:32 2,000 INTER.UNIT Docusate Sodium (coLACE CAP) 100 mg BID PO 08/16/16 09:00 09/15/16 08:59 08/16/16 08:31 100 MG Loratadine (Claritin Tab) 10 mg DAILY PO 08/16/16 09:00 09/15/16 08:59 08/16/16 08:31 10 MG Pantoprazole Sodium (Protonix Tab) 40 mg QAM PO 08/16/16 09:00 09/15/16 08:59 08/16/16 08:32 40 MG Tramadol HCl (Ultram Tab) 50 mg Q6H PRN PO 08/16/16 01:00 09/15/16 00:59 Trazodone HCl (Desyrel Tab) 50 mg HS PRN PO 08/16/16 01:00 09/15/16 00:59 Warfarin Sodium (Coumadin Tab) 5 mg DAILY@1600 PO 08/16/16 16:00 09/15/16 15:59 Enoxaparin Sodium (Lovenox Inj) 120 mg Q12@0600,1800 SQ 08/16/16 16:00 09/15/16 15:59 Prednisone (PredniSONE TAB) 10 mg DAILY PO 08/16/16 09:00 09/15/16 08:59 08/16/16 08:32 10 MG Nicotine (Nicoderm Cq 14MG Patch) 1 patch QAM TD 08/17/16 09:00 09/16/16 08:59 Miscellaneous (Remove Nicoderm Patch) 1 ea HS N/A 08/16/16 21:00 09/15/16 20:59 (Pete Castillo,P.A.) Objective Vital Signs Date Time Temp Pulse Resp B/P (MAP) Pulse Ox O2 Delivery O2 Flow Rate FiO2 08/16/16 08:10 Room Air 08/16/16 06:52 36.4 61 18 132/73 (92) 93 Room Air 08/16/16 00:22 36.7 59 16 140/79 Room Air 08/16/16 00:22 Room Air (Pete Castillo.,P.A.) Physical Exam Notes: General: Patient in no acute distress. HEENT: Head is atraumatic, normocephalic. EOMs intact. Sclerae anicteric. Facies symmetric. No perioral cyanosis. Neck: No thyromegaly, adenopathy, or JVD. Carotid upstrokes +2 bilaterally without bruits. JVP is at the level of the clavicle sitting upright. Chest and Lungs: Clear to auscultation throughout all lung parekh, no wheezes, rales, or rhonchi. CVS: S1 and S2 are regular without murmur, gallop, or rub. PMI is nondisplaced. No lifts, heaves, or thrills. No abdominal aortic or renal bruits. Abdominal Exam: Bowel sounds present. Slightly tender to palpation in RLQ. No guarding, rigidity, or rebound tenderness.. Extremities: No clubbing, cyanosis, or edema. Intact posterior tibial and radial pulses bilaterally. Neurologic Exam: Patient is awake, alert, and oriented. Pleasant and cooperative. Answers questions appropriately. Speech is clear. Normal movement in all 4 extremities. Gait pattern is unremarkable. (Pete Castillo.,P.A.) Laboratory Results Last 24 Hours Test 08/16/16 06:09 White Blood Count 6.68 K/uL Red Blood Count 4.25 M/uL Hemoglobin 13.3 g/dL Hematocrit 40.0 % Mean Corpuscular Volume 94.1 fL Mean Corpuscular Hemoglobin 31.3 pg Mean Corpuscular Hemoglobin Concent 33.3 g/dl RDW Standard Deviation 49.4 fL RDW Coefficient of Variation 14.2 % Platelet Count 219 K/uL Mean Platelet Volume 9.0 fL Prothrombin Time 14.3 SECONDS Prothromb Time International Ratio 1.3 Creatinine 0.91 mg/dl Est Creatinine Clear Calc Drug Dose 85.0 ml/min Estimated GFR () 78.4 Estimated GFR (Non- 67.6 (Pete Castillo.,P.A.) Assessment and Plan 1. RLQ Pain / Crohn's disease / Chronic Ileitis: -- Again, patient does NOT appear to be obstructed, partially obstructed, nor does she appear to have an ileus. -- Suspect that dilated small bowel on Abdominal films may related to a pre- stenotic bowel dilatation, and this appears to be chronic. -- Continue IV fluids. -- Progress to Full Liquid diet for lunch. If patient tolerates can progress to Low Residue diet for dinner. -- Patient to remain hospitalized until evaluated by Dr. Desir / Aby MADDOX. -- Continue prednisone. -- Continue Humira. 2. DVT, PE's: -- Continue Coumadin for goal INR of 2.0 to 3.0. -- Lovenox until INR approaching therapeutic range. 3. Post-menopausal Vaginal Bleeding: -- Evaluated by Contract Assistant in July 2016. -- Transvaginal U/S showed no significant endometrial thickening. -- Consider outpatient endometrial biopsy as this is a recurring issue. 4. Nicotine Dependence: -- Nicoderm CQ 14 mg patch. Continued [facility] stay due to: other (Awaiting evaluation with Dr. Desir) Discharge planning: home (Pete Castillo.,P.A.) Attending Attestation: Pt's care plan d/w GEORGINA Castillo and I agree with the dhaliwal components of his documentation. Ziggy Rasheed MD (Ziggy Rasheed MD)
[2016-08-16] MEDS ORDERED: HYDROCODONE/ACETAMINOPHEN 7.5/325MG TAB PO ONE (12:03)
[2016-08-16] MEDS ORDERED: OPTIRAY 320 IV PRN (12:15)
--- NOTE | 2016-08-16 12:32 | Gastrointestinal Consultation ---
Gastrointestinal Consultation Date of Consultation: Aug 16, 2016 History of Present Illness Patient is a 61 year old female who sees Dr. 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 She apparently presented with vaginal bleeding, underwent CT scan at [facility] ( did not see image) but possible suggestive of a small bowel partial obstruction and was transferred to [facility] for further care. She states she always has intermittent right sided abdominal pain but none worse than prior, vaginal bleeding has spontaneously ceased, and she denies any abdominal bloating, nausea, vomiting, or intolerance to food. She was recently placed on Humira about 2-3 months ago, one shot every 2 wks, and is on chronic 10 mg daily of prednisone. She is very comfortable today, without pain, nausea, and tolerated oral liquid diet. She is quite concerned and desires to discuss if surgery is the next step. Past Medical/Surgical History Medical Problems: (1) Diarrhea Status: Acute (2) Epistaxis Status: Acute (3) Fistula of intestine, excluding rectum and anus Status: Acute (4) Headache Status: Acute (5) Ileus Status: Acute (6) Multiple pulmonary emboli Status: Acute (7) Optic neuritis Status: Acute (8) Partial small bowel obstruction Status: Acute (9) Rectal bleed Status: Acute (10) RLQ abdominal pain Status: Acute (11) Small bowel obstruction Status: Acute (12) Small bowel obstruction Status: Acute (13) Substernal chest pain Status: Acute (14) Subtherapeutic international normalized ratio (INR) Status: Acute (15) 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 (16) Visual disturbance Status: Acute Family History Patient reports no known family medical history. Social History Smoking Status: Current Every Day Smoker Alcohol Use: none Drug Use: none Marital Status: Housing Status: lives with family Occupation Status: unemployed Allergies Coded Allergies: No Known Allergies (Unverified , 07/29/16) Current Medications Home Meds and Scripts Medications Dose Route/Sig Max Daily Dose Days Date Category Dose Instructions Prednisone 10 Mg Tab 15 Mg PO DAILY 07/31/16 Rx 15mg daily x 1 wk, then 12.5mg daily x 1 wk, 10mg daily x 1 wk, 7.5mg daily x 1 wk, 5mg daily x 1 wk, 2.5mg daily x 1 wk. Coumadin (Warfarin Sodium) 5 Mg Tab 1 Tab PO DAILY 90 07/29/16 Reported Lipitor (Atorvastatin Calcium) 20 Mg Tab 20 Mg PO DAILY 07/29/16 Reported Humira Pen (Adalimumab) 40 Mg/0.8 Ml Kit 80 Mg SQ WK 07/17/16 Rx DUE on 07/21/16, then 40mg sq every other week after that Vitamin D3 (Cholecalciferol) 1,000 Inter.unit Tab 2,000 Inter.unit PO QAM 30 07/17/16 Rx OTC Pantoprazole Sodium (Pantoprazole) 40 Mg Tab 40 Mg PO QAM 30 07/17/16 Rx Docusate Sodium 100 Mg Cap 100 Mg PO BID 30 07/17/16 Rx Tramadol HCl 50 Mg Tab 50 Mg PO Q6H PRN 07/17/16 Rx Ventolin Hfa (Albuterol) 200 Puffs/01471 Mcg Aers 2-4 Puffs INH Q6H 07/11/16 Reported Claritin (Loratadine) 10 Mg Tab 10 Mg PO DAILY 07/11/16 Reported Digestive Advantage Probi (Probiotic Product) 1 Chw Chw 1 Cap PO DAILY 06/07/16 Reported Trazodone (Trazodone HCl) 50 Mg Tab 50 Mg PO HS PRN 06/07/16 Reported Vitamin B12 (Cyanocobalamin) 1,000 Mcg Tab 1,000 Mcg PO DAILY 09/06/15 Reported Iron (Ferrous Sulfate) 325 Mg Tab 325 Mg PO DAILY 09/06/15 Reported Aspirin Ec (Aspirin) 81 Mg Tab 81 Mg PO DAILY 09/06/15 Reported Review of Systems Constitutional: No see HPI, No fever, No chills, No sweats, No weight loss, No weakness, No fatigue, No problem reported Eyes: No see HPI, No worsening of vision, No eye pain, No redness, No discharge , No diplopia, No problem reported ENT: No see HPI, No hearing loss, No unusual epistaxis, No nasal symptoms, No sore throat, No tinnitus, No dental problems, No trouble swallowing, No pain on swallowing, No problem reported Respiratory: No see HPI, No cough, No sputum, No wheezing, No shortness of breath, No dyspnea on exertion, No dyspnea at rest, No hemoptysis, No problem reported Cardiac: No see HPI, No chest pain, No orthopnea, No PND, No edema, No claudication, No palpitations, No problem reported Abdomen: No see HPI, No pain, No nausea, No vomiting, No diarrhea, No constipation, No GI bleeding, No dysphagia, No odynophagia, No acolic stools, No jaundice, No dark urine, No problem reported Physical Exam Date Time Temp Pulse Resp B/P (MAP) Pulse Ox O2 Delivery O2 Flow Rate FiO2 08/16/16 11:33 69 16 152/85 (107) 98 Room Air 08/16/16 08:10 Room Air 08/16/16 06:52 36.4 61 18 132/73 (92) 93 Room Air 08/16/16 00:22 36.7 59 16 140/79 Room Air 08/16/16 00:22 Room Air General Appearance: WD/WN, no apparent distress Eyes: normal inspection ENT: normal ENT inspection Neck: supple Respiratory/Chest: chest non-tender, lungs clear Cardiovascular: regular rate, rhythm, no edema Abdomen: normal bowel sounds, non tender Extremities: normal range of motion, non-tender 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, no motor/sensory deficits Laboratory Results Last 24 Hours Test 08/16/16 06:09 White Blood Count 6.68 K/uL Red Blood Count 4.25 M/uL Hemoglobin 13.3 g/dL Hematocrit 40.0 % Mean Corpuscular Volume 94.1 fL Mean Corpuscular Hemoglobin 31.3 pg Mean Corpuscular Hemoglobin Concent 33.3 g/dl RDW Standard Deviation 49.4 fL RDW Coefficient of Variation 14.2 % Platelet Count 219 K/uL Mean Platelet Volume 9.0 fL Prothrombin Time 14.3 SECONDS Prothromb Time International Ratio 1.3 Creatinine 0.91 mg/dl Est Creatinine Clear Calc Drug Dose 85.0 ml/min Estimated GFR () 78.4 Estimated GFR (Non- 67.6 Impression Patient is a 61 year old female with known 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 Lack of pain, nausea, vomiting, and doing otherwise well -Not convinced she has failed TNF, given timeline, It would be helpful to have scan from [facility] sent here for review -May need colo-rectal outpatient surgical evaluation but no acute need -Continue 10 mg of prednisone, Humira every 2 wks -Further recommendations with Dr. Desir when back tomorrow -Ok to advance diet to Low residue
--- NOTE | 2016-08-16 12:50 | DIAGNOSTIC IMAGING REPORT ---
CT ANGIOGRAM OF THE CHEST CLINICAL HISTORY: Left-sided chest pain. COMPARISON STUDY: CT scan of the chest dated 08/15/2016 and 06/08/2016. TECHNIQUE: Following the IV administration of 94 cc of Optiray 320, CT angiogram of the chest was performed from the upper abdomen to the thoracic inlet utilizing the pulmonary embolus protocol. Images are reviewed in the axial, sagittal, and coronal planes. 3-D MIPS images are created and assessed. IV contrast was administered without complication. CT DOSE: 532.74 mGy.cm FINDINGS: Thyroid: Imaged portions of the thyroid gland are normal in size and attenuation. Thoracic aorta: There is mild atherosclerotic calcification of the thoracic aorta, which is normal in caliber and demonstrates standard 3-vessel arch anatomy. No dissection is seen. Pulmonary vasculature: The pulmonary trunk is normal in caliber. There are no filling defects identified in main, lobar, or segmental pulmonary branches to suggest pulmonary embolus. Heart: The heart is normal in size and configuration, and without pericardial effusion. Coronary arteries are densely calcified. Lungs and pleural spaces: The lungs and pleural spaces are clear. Mediastinum: There is no mediastinal lymphadenopathy. Sarah Beth: Clear. Axillae: There is no axillary lymphadenopathy. Upper abdomen: Partially visualized upper abdominal viscera is within normal limits. Skeletal structures: The skeletal structures are osteopenic. Degenerative change is noted throughout the thoracic spine. No lytic or blastic bony lesions are seen. IMPRESSION: 1. There is no evidence of pulmonary embolus in the main, lobar, or segmental pulmonary arteries. 2. There is no airspace consolidation or pleural effusion. There has been no significant change from yesterday. 3. Additional findings as above. Electronically signed by: Frank Cortez M.D. 08/16/2016 12:49 PM Dictated Date/Time: 08/16/2016 12:44 PM
[2016-08-16 15:16] VITALS: BP 125/77; PULSE 64; TEMP 36.7; O2SAT 96
[2016-08-16] MEDS: ENOXAPARIN 120 MG/0.8 ML SYR SQ SCH (15:24)
[2016-08-16] MEDS ORDERED: WARFARIN SOD 5 MG TAB PO SCH (16:00)
[2016-08-16] MEDS: HYDROCODONE/ACETAMINOPHEN 7.5/325MG TAB PO PRN (19:55)
[2016-08-16 23:07] VITALS: BP 112/66; PULSE 62; TEMP 36.5; O2SAT 97
[2016-08-16] MEDS: TRAZODONE HCL 50 MG TAB PO PRN (23:39)
[2016-08-17] MEDS: HYDROCODONE/ACETAMINOPHEN 7.5/325MG TAB PO PRN ×3 (01:53→18:40)
[2016-08-17] MEDS: ENOXAPARIN 120 MG/0.8 ML SYR SQ SCH ×2 (05:44→18:39)
[2016-08-17 07:18] VITALS: BP 136/83; PULSE 61; TEMP 36.5; O2SAT 98
[2016-08-17 07:27] LABS: INR 1.5 (0.9-1.1); PROTHROMBIN TIME (PATIENT) 16.1 SECONDS (9.0-12.0)
[2016-08-17 07:47] LABS: CREATININE 0.88 mg/dl (0.60-1.20)
[2016-08-17] MEDS: ATORVASTATIN 20 MG TAB PO SCH (08:34)
[2016-08-17] MEDS: LORATADINE 10 MG TAB PO SCH (08:35)
[2016-08-17] MEDS: PANTOprazole SOD 40 MG TAB PO SCH (08:35)
[2016-08-17] MEDS: DOCUSATE SODIUM 100 MG CAP PO SCH ×2 (08:35→20:52)
[2016-08-17] MEDS: CHOLECALCIFEROL 1000 INTER.UNIT TAB PO SCH (08:35)
[2016-08-17] MEDS: ASPIRIN 81 MG ECTAB PO SCH (08:35)
[2016-08-17] MEDS: NICOTINE 14 MG/24 HR TDSY TD SCH (08:36)
[2016-08-17] MEDS ORDERED: POLYETHYLENE (MIRALAX) 17 GM PACK PO ONE (09:45)
--- NOTE | 2016-08-17 09:45 | Gastroenterology Progress Note ---
Progress Note Date of Service: Aug 17, 2016 Subjective Pt evaluation today including: conversation w/ patient, physical exam, lab review, review of studies, review of inpatient medication list Patient reports feeling well today. Tolerating a low residue diet. Reports mild RLQ pain stating "it feel's like a ball". Reports no bowel movement x 2 days and is concerned her pain is from not passing any stool. She is passing flatus. No nausea or vomiting. Continues Prednisone 10 mg daily. Due for next Humira injection on . Tolerating the medication well. Denies any injection site reactions or side effects. H&H is normal. Review of Systems Constitutional: No problem reported Respiratory: No problem reported Cardiac: No problem reported Abdomen: + see HPI Psych: No problem reported Medications Current Inpatient Medications Medications (Trade) Dose Ordered Sig/Rachael Route Start Time Stop Time Status Last Admin Dose Admin Acetaminophen (Tylenol Tab) 650 mg Q4H PRN PO 08/16/16 01:00 09/15/16 00:59 Al Hydrox/Mg Hydrox/Simethicone (Maalox Max Susp) 15 ml Q4H PRN PO 08/16/16 01:00 09/15/16 00:59 Magnesium Hydroxide (Milk Of Magnesia Susp) 30 ml Q6H PRN PO 08/16/16 01:00 09/15/16 00:59 Polyethylene (Miralax Powder Packet) 17 gm DAILY PRN PO 08/16/16 01:00 09/15/16 00:59 Zolpidem Tartrate (Ambien Tab) 5 mg HSZ PRN PO 08/16/16 01:00 09/15/16 00:59 Ondansetron HCl (Zofran Inj) 4 mg Q6H PRN IV 08/16/16 01:00 09/15/16 00:59 Albuterol (Ventolin Hfa Inhaler) 2 puffs Q6H PRN INH 08/16/16 01:00 09/15/16 00:59 Aspirin (Ecotrin Tab) 81 mg DAILY PO 08/16/16 09:00 09/15/16 08:59 08/17/16 08:35 81 MG Atorvastatin Calcium (Lipitor Tab) 20 mg DAILY PO 08/16/16 09:00 09/15/16 08:59 08/17/16 08:34 20 MG Cholecalciferol (Vitamin D Tab) 2,000 inter.unit QAM PO 08/16/16 09:00 09/15/16 08:59 08/17/16 08:35 2,000 INTER.UNIT Docusate Sodium (coLACE CAP) 100 mg BID PO 08/16/16 09:00 09/15/16 08:59 08/17/16 08:35 100 MG Loratadine (Claritin Tab) 10 mg DAILY PO 08/16/16 09:00 09/15/16 08:59 08/17/16 08:35 10 MG Pantoprazole Sodium (Protonix Tab) 40 mg QAM PO 08/16/16 09:00 09/15/16 08:59 08/17/16 08:35 40 MG Tramadol HCl (Ultram Tab) 50 mg Q6H PRN PO 08/16/16 01:00 09/15/16 00:59 Trazodone HCl (Desyrel Tab) 50 mg HS PRN PO 08/16/16 01:00 09/15/16 00:59 08/16/16 23:39 50 MG Warfarin Sodium (Coumadin Tab) 5 mg DAILY@1600 PO 08/16/16 16:00 09/15/16 15:59 08/16/16 15:23 5 MG Enoxaparin Sodium (Lovenox Inj) 120 mg Q12@0600,1800 SQ 08/16/16 16:00 09/15/16 15:59 08/17/16 05:44 120 MG Prednisone (PredniSONE TAB) 10 mg DAILY PO 08/16/16 09:00 09/15/16 08:59 08/17/16 08:34 10 MG Nicotine (Nicoderm Cq 14MG Patch) 1 patch QAM TD 08/17/16 09:00 09/16/16 08:59 08/17/16 08:36 1 PATCH Miscellaneous (Remove Nicoderm Patch) 1 ea HS N/A 08/16/16 21:00 09/15/16 20:59 08/16/16 21:01 1 EA Acetaminophen/ Hydrocodone Bitart ([place] 7.5/325 Tab) 1 tab Q6H PRN PO 08/16/16 12:15 08/30/16 12:14 08/17/16 01:53 1 TAB Ioversol (Optiray 320) 125 ml UD PRN IV 08/16/16 12:15 08/20/16 12:14 Objective Vital Signs Date Time Temp Pulse Resp B/P (MAP) Pulse Ox O2 Delivery O2 Flow Rate FiO2 08/17/16 07:40 Room Air 08/17/16 07:18 36.5 61 19 136/83 (100) 98 Room Air 08/16/16 23:40 Room Air 08/16/16 23:07 36.5 62 16 112/66 (81) 97 Room Air 08/16/16 15:30 Room Air 08/16/16 15:16 36.7 64 18 125/77 (93) 96 Room Air 08/16/16 11:33 69 16 152/85 (107) 98 Room Air Physical Exam General Appearance: no apparent distress Eyes: EOMI ENT: hearing grossly normal Respiratory/Chest: lungs clear, normal breath sounds, no respiratory distress Cardiovascular: regular rate, rhythm, no gallop, no murmur Abdomen: normal bowel sounds, soft, + tenderness (right upper and lower quadrants) Neurologic/Psych: alert, normal mood/affect, oriented x 3 Skin: warm/dry Laboratory Results Last 24 Hours Test 08/17/16 07:00 Prothrombin Time 16.1 SECONDS Prothromb Time International Ratio 1.5 Creatinine 0.88 mg/dl Est Creatinine Clear Calc Drug Dose 87.9 ml/min Estimated GFR () 81.6 Estimated GFR (Non- 70.4 Assessment and Plan Patient is a 61 year old female with 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 1. Continue low residue diet. 2. Continue Prednisone 10 mg daily. 3. 2 packets of MiraLAX now. Continue MiraLAX 17 g once or twice daily as needed as an outpatient. 4. Continue Colace 100 mg BID. 5. Okay to discontinue oral iron supplement as this is likely contributing to constipation. 6. Continue Humira 40 mg injected subcutaneously every other week. 7. Colorectal evaluation as an outpatient. 8. Stable for discharge from GI standpoint. Agree with VARSHA Pop as above Abd: Soft, NT, ND, +BS Continue current therapy Will need to see colorectal surgery as outpatient, as she has had 15 hospitalizations for PSBO
--- NOTE | 2016-08-17 13:55 | Progress Note ---
Subjective Date of Service: Aug 17, 2016. Subjective Pt evaluation today including: conversation w/ patient, physical exam, chart review, lab review, review of studies, review of inpatient medication list Pt resting comfortably in bed No worsening abd pain BM this AM Tolerating low residue diet Problem List Medical Problems: (1) Diarrhea Status: Acute (2) Epistaxis Status: Acute (3) Fistula of intestine, excluding rectum and anus Status: Acute (4) Headache Status: Acute (5) Ileus Status: Acute (6) Multiple pulmonary emboli Status: Acute (7) Optic neuritis Status: Acute (8) Partial small bowel obstruction Status: Acute (9) Rectal bleed Status: Acute (10) RLQ abdominal pain Status: Acute (11) Small bowel obstruction Status: Acute (12) Small bowel obstruction Status: Acute (13) Substernal chest pain Status: Acute (14) Subtherapeutic international normalized ratio (INR) Status: Acute (15) 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 (16) Visual disturbance Status: Acute Review of Systems Constitutional: No fever, No chills, No sweats, No weakness Eyes: No worsening of vision, No eye pain, No redness, No discharge ENT: No hearing loss, No unusual epistaxis, No nasal symptoms, No sore throat Respiratory: No cough, No sputum, No wheezing, No shortness of breath, No dyspnea on exertion Cardiac: No chest pain, No orthopnea, No PND, No edema Abdomen: No pain, No nausea, No vomiting, No diarrhea, No constipation Musculoskeletal: No joint pain, No muscle pain, No swelling, No calf pain Female : No dysuria, No urinary frequency, No hematuria, No incontinence Neurologic: No memory loss, No paralysis, No weakness, No numbness/tingling Psychiatric: No depression symptoms, No anhedonism, No anxiety, No insomnia Endo: No fatigue, No excessive thirst, No excessive urination Skin: No rash, No itch Objective Vital Signs Date Time Temp Pulse Resp B/P (MAP) Pulse Ox O2 Delivery O2 Flow Rate FiO2 08/17/16 07:40 Room Air 08/17/16 07:18 36.5 61 19 136/83 (100) 98 Room Air 08/16/16 23:40 Room Air 08/16/16 23:07 36.5 62 16 112/66 (81) 97 Room Air 08/16/16 15:30 Room Air 08/16/16 15:16 36.7 64 18 125/77 (93) 96 Room Air Physical Exam General Appearance: WD/WN, no apparent distress Eyes: normal inspection, PERRL, EOMI, sclerae normal Neck: supple, no adenopathy, thyroid normal, no JVD Respiratory/Chest: chest non-tender, lungs clear, normal breath sounds, no respiratory distress Cardiovascular: regular rate, rhythm, no edema, no gallop, no JVD Abdomen: normal bowel sounds, non tender, soft, no organomegaly Extremities: normal range of motion, non-tender, normal inspection, no pedal edema Neurologic/Psychiatric: no motor/sensory deficits, alert, normal mood/affect, oriented x 3 Skin: normal color, warm/dry, no rash Laboratory Results Last 24 Hours Test 08/17/16 07:00 Prothrombin Time 16.1 SECONDS Prothromb Time International Ratio 1.5 Creatinine 0.88 mg/dl Est Creatinine Clear Calc Drug Dose 87.9 ml/min Estimated GFR () 81.6 Estimated GFR (Non- 70.4 Assessment and Plan Crohn's disease with RLQ abd pain in setting of PSBO and chronic ileitis Resolved BM this AM Pt tolerating low residue diet Suspect that dilated small bowel on Abdominal films may related to a pre- stenotic bowel dilatation, and this appears to be chronic. Continue humira and prednisone at this time Will need to f/u with colorectal surgery on discharge Recent PE's: No shortness of breath INR still subtherapeutic at 1.5 Increase coumadin to 7.5 mg PO daily Cont to monitor INR Continue therapeutic lovenox at this time as well Post-menopausal Vaginal Bleeding Evaluated by Wellness Nurse in July 2016. Transvaginal U/S showed no significant endometrial thickening. Consider outpatient endometrial biopsy as this is a recurring issue. Nicotine Dependence: Cont nicoderm CQ 14 mg patch daily Pt is FULL CODE Continued [facility] stay due to: other (Awaiting evaluation with Dr. Desir) Discharge planning: home
[2016-08-17 15:14] VITALS: BP 104/61; PULSE 72; TEMP 36.7; O2SAT 98
[2016-08-17] MEDS: WARFARIN SOD 7.5 MG TAB PO SCH (15:47)
[2016-08-17 22:47] VITALS: BP 132/79; PULSE 77; TEMP 36.4; O2SAT 96
[2016-08-18] MEDS: TRAZODONE HCL 50 MG TAB PO PRN
[2016-08-18] MEDS: ENOXAPARIN 120 MG/0.8 ML SYR SQ SCH ×2 (05:38→15:50)
[2016-08-18 06:39] LABS: INR 1.7 (0.9-1.1); PROTHROMBIN TIME (PATIENT) 19.1 SECONDS (9.0-12.0)
[2016-08-18 07:01] LABS: CREATININE 0.89 mg/dl (0.60-1.20)
[2016-08-18 08:14] VITALS: BP 101/65; PULSE 65; TEMP 36.6; O2SAT 96
[2016-08-18 08:54] VITALS: O2SAT 96
[2016-08-18] MEDS: PANTOprazole SOD 40 MG TAB PO SCH (09:12)
[2016-08-18] MEDS: LORATADINE 10 MG TAB PO SCH (09:12)
[2016-08-18] MEDS: ASPIRIN 81 MG ECTAB PO SCH (09:12)
[2016-08-18] MEDS: ATORVASTATIN 20 MG TAB PO SCH (09:12)
[2016-08-18] MEDS: CHOLECALCIFEROL 1000 INTER.UNIT TAB PO SCH (09:12)
[2016-08-18] MEDS: DOCUSATE SODIUM 100 MG CAP PO SCH (09:12)
[2016-08-18] MEDS: NICOTINE 14 MG/24 HR TDSY TD SCH (09:12)
[2016-08-18] MEDS ORDERED: LVNIS120 SQ (11:43)
[2016-08-18] MEDS ORDERED: CMD75 PO (11:43)
[2016-08-18] MEDS ORDERED: MRLP17X PO (11:52)
[2016-08-18] MEDS ORDERED: PRD10 PO (11:52)
--- NOTE | 2016-08-18 11:53 | Discharge Instructions ---
Discharge Instructions Date of Service Aug 18, 2016. Admission Reason for Admission: SBO Discharge Discharge Diagnosis / Problem: small bowel obstruction, hx of pulmonary embolism Discharge Goals Goal(s): Decrease discomfort, Improve function, Increase independence, Improve disease control, Learn about illness, Diagnostic testing, Therapeutic intervention, Prevent Disease Progression Activity Recommendations Activity Limitations: resume your previous activity Exercise/Sports Limitations: none Shower/Bathe: no limitations . Instructions / Follow-Up Instructions / Follow-Up Patient to be discharged home with home health OK to resume low fiber diet at home Please take new dose of coumadin 7.5 mg by mouth daily Please continue to take lovenox injections at home for next 2 days as well Please stop taking iron supplementation Will need to follow up to get PT/INR drawn on 08/20 If worsening pain, shortness of breath, chest pain, fevers or chills please report to ER Follow up with Dr Campbell in 1-2 weeks Will need to schedule appointment with colorectal surgery in 1-2 weeks for repeat small bowel obstructions Current Hospital Diet Patient's current hospital diet: Low Fiber Diet Discharge Diet Recommended Diet: Low Fiber Diet Pending Studies Studies pending at discharge: no Laboratory Results Hemoglobin A1c Test 06/21/16 10:55 Range/Units Estimated Average Glucose 114 mg/dl Hemoglobin A1c 5.6 4.5-5.6 % Lipid Panel Test 06/22/16 06:25 Range/Units Triglycerides Level 166 H 0-150 mg/dl Cholesterol Level 254 H 0-200 mg/dl HDL Cholesterol 62 mg/dl Cholesterol/HDL Ratio 4.1 LDL Cholesterol, Calculated 159 mg/dl Medical Emergencies . Who to Call and When: Medical Emergencies: If at any time you feel your situation is an emergency, please call 911 immediately. . Non-Emergent Contact Non-Emergency issues call your: Primary Care Provider Call Non-Emergent contact if: you have a fever, your pain is worsening . . "Provider Documentation" section prepared by Stefano Greenfield. . VTE Core Measure Inpt VTE Proph given/why not?: Enoxaparin (Lovenox)SQ, Warfarin (Coumadin)
[2016-08-18 13:38] VITALS: BP 114/77
--- NOTE | 2016-08-18 14:03 | Discharge Summary ---
Discharge Summary Date of Service Aug 18, 2016. Discharge Summary Admission Date: Aug 16, 2016 at 00:05 Discharge Date: Aug 18, 2016 Discharge Disposition: Home with services Principal Diagnosis: Small bowel obstruction, recent pulmonary embolism Consultations: Gastroenterology Medication Reconciliation New Medications: Enoxaparin (Lovenox) 120 Mg/0.8 Ml Inj 120 MG SQ Q12@0600,1800 for 2 Days, VIAL Polyethylene (Miralax) 17 Gm Pow 17 GM PO DAILY PRN for Constipation, #30 PKT Prednisone (Prednisone) 10 Mg Tab 10 MG PO DAILY, #7 TAB Warfarin Sod (Coumadin) 7.5 Mg Tab 7.5 MG PO DAILY@1600, #30 TAB Continued Medications: Adalimumab (Humira Pen) 40 Mg/0.8 Ml Kit 80 MG SQ WK, #1 DUE on 07/21/16, then 40mg sq every other week after that Albuterol Hfa (Ventolin Hfa) 200 Puffs/88215 Mcg Aers 2-4 PUFFS INH Q6H, #1 INHALER Aspirin (Aspirin Ec) 81 Mg Tab 81 MG PO DAILY Atorvastatin (Lipitor) 20 Mg Tab 20 MG PO DAILY, TAB Cholecalciferol (Vitamin D3) 1,000 Inter.unit Tab 2000 INTER.UNIT PO QAM for 30 Days, TAB OTC Cyanocobalamin (Vitamin B12) 1,000 Mcg Tab 1000 MCG PO DAILY Docusate Sodium (Docusate Sodium) 100 Mg Cap 100 MG PO BID for 30 Days, #60 CAP Loratadine (Claritin) 10 Mg Tab 10 MG PO DAILY, TAB Pantoprazole (Pantoprazole Sodium) 40 Mg Tab 40 MG PO QAM for 30 Days, #30 TAB Probiotic Product (Digestive Advantage Probi) 1 Chw Chw 1 CAP PO DAILY Tramadol HCl (Tramadol HCl) 50 Mg Tab 50 MG PO Q6H PRN for Pain, #30 TAB Trazodone Hcl (Trazodone) 50 Mg Tab 50 MG PO HS PRN for Sleep, TAB Discontinued Medications: Ferrous Sulfate (Iron) 325 Mg Tab 325 MG PO DAILY Prednisone (Prednisone) 10 Mg Tab 15 MG PO DAILY, #24 TAB 15mg daily x 1 wk, then 12.5mg daily x 1 wk, 10mg daily x 1 wk, 7.5mg daily x 1 wk, 5mg daily x 1 wk, 2.5mg daily x 1 wk. Warfarin Sodium (Coumadin) 5 Mg Tab 1 TAB PO DAILY for 90 Days, #90 TAB 1 Refill Discharge Exam Review of Systems: Constitutional: No fever, No chills, No sweats, No weakness, No fatigue Eyes: No worsening of vision, No eye pain, No redness, No discharge ENT: No hearing loss, No unusual epistaxis, No nasal symptoms, No sore throat Respiratory: No cough, No sputum, No wheezing, No shortness of breath, No dyspnea on exertion Cardiovascular: No chest pain, No orthopnea, No PND, No edema, No claudication Abdomen: No pain, No nausea, No vomiting, No diarrhea, No constipation Musculoskeletal: No joint pain, No muscle pain, No swelling, No calf pain Genitourinary - Female: No dysuria, No urinary frequency, No urinary urgency , No urinary incontinence, No urinary retention Neurologic: No memory loss, No paralysis, No weakness, No numbness/tingling , No vertigo Psychiatric: No depression symptoms, No anhedonism, No anxiety, No insomnia Endocrine: No fatigue, No excessive thirst Physical Exam: General Appearance: WD/WN, no apparent distress Eyes: normal inspection, PERRL, EOMI, sclerae normal ENT: normal ENT inspection, hearing grossly normal, TMs normal, pharynx normal Neck: supple, no adenopathy, thyroid normal, no JVD Respiratory/Chest: chest non-tender, lungs clear, normal breath sounds, no respiratory distress Cardiovascular: regular rate, rhythm, no edema, no gallop, no JVD Abdomen / GI: normal bowel sounds, non tender, soft, no organomegaly Neurologic/Psychiatric: no motor/sensory deficits, alert, normal mood/affect , normal reflexes Skin: normal color, warm/dry, no rash Lymphatic: no adenopathy Hospital Course Crohn's disease with RLQ abd pain in setting of PSBO and chronic ileitis Resolved Pt tolerating low residue diet Suspect that dilated small bowel on Abdominal films may related to a pre- stenotic bowel dilatation, and this appears to be chronic. Continue humira and prednisone on discharge Per GI recommend DCing iron supplementation Will need to f/u with colorectal surgery on discharge Recent PE's: No shortness of breath INR still subtherapeutic at 1.7 Cont coumadin to 7.5 mg PO daily Cont to monitor INR on discharge, next draw 08/20/16 Continue therapeutic lovenox on discharge for additional 2 days Post-menopausal Vaginal Bleeding Resolved Evaluated by [employer] in July 2016. Transvaginal U/S showed no significant endometrial thickening. Consider outpatient endometrial biopsy as this is a recurring issue. Nicotine Dependence: Cont nicoderm CQ 14 mg patch daily Pt is FULL CODE Total Time Spent: Greater than 30 minutes This includes examination of the patient, discharge planning, medication reconciliation, and communication with other providers. Discharge Instructions Please refer to the electronic Patient Visit Report (Discharge Instructions) for additional information. Additional Copies To Oc Sesay PA-C
[2016-08-18 15:45] VITALS: BP 144/79; PULSE 71; TEMP 36.5; O2SAT 96
[2016-08-18] MEDS ORDERED: CARBAMIDE PEROXIDE 6.5% 15 ML BTL OT ONE (15:45)
[2016-08-18] MEDS: WARFARIN SOD 7.5 MG TAB PO SCH (15:51)
[2016-09-29] MEDS ORDERED: PRD5 PO (09:14)
[2016-11-17] MEDS ORDERED: NICO14DI5 TD (12:37)
[2016-11-17] MEDS ORDERED: ZYR10 PO (12:37)
== END 2016-08-18 16:00 | disposition home or self-care (01) | DRG 389 ==
LOC: C.MSN 08-16 00:05
PROVIDERS: ADMIT Internal Medicine; ATTEND Hospitalist
DX: K56.60 Unspecified intestinal obstruction (principal); K50.90 Crohn's disease, unspecified, without complications; Z68.41 Body mass index [BMI] 40.0-44.9, adult; F17.200 Nicotine dependence, unspecified, uncomplicated; R51 Headache; N95.0 Postmenopausal bleeding; E66.01 Morbid (severe) obesity due to excess calories; K52.9 Noninfective gastroenteritis and colitis, unspecified; Z86.711 Personal history of pulmonary embolism; Z79.01 Long term (current) use of anticoagulants; Z79.52 Long term (current) use of systemic steroids; Z79.82 Long term (current) use of aspirin; Z79.899 Other long term (current) drug therapy

== ENCOUNTER 2016-08-22 07:26 | Inpatient (IN) | payer OTHER ==
[~2016-08-22] VITALS: Ht 167.6 cm; Wt 125.0 kg
[~2016-08-22 07:26] MED LIST changes: +CMD75 PO; -FERR1TAB23 PO; +LVNIS120 SQ; +MRLP17X PO; +PRD10 PO; -PRED10TA PO; -WARF5TAB90 PO
[2016-08-22] MEDS ORDERED: SODIUM CHLORIDE 0.9% 1000ML 1,000 ML IV STA ×2 (07:52)
[2016-08-22] MEDS ORDERED: PROMETHAZINE HCL INJ 25 MG in SODIUM CHLORIDE 0.9% 50ML 50 ML IV STA (07:59)
[2016-08-22] MEDS ORDERED: HYDROmorphone INJ 1 MG/ML SYR IV PRN ×2 (08:00→13:30)
[2016-08-22] MEDS ORDERED: OPTIRAY 320 IV PRN (08:00)
[2016-08-22 08:04] LABS: BASO % 0.5 %; BASO ABS # 0.04 K/uL (0-0.2); COMPLETE YES; EOS % 1.1 %; IG% 0.6 %; LYMPH % 10.4 %; LYMPH ABS # 0.91 K/uL (1.2-3.4); MEAN CELL VOLUME 94.5 fL (80-100); MEAN CORPUSCULAR HEMOGLOBIN 32.1 pg (25-34); MEAN PLATELET VOLUME 9.7 fL (7.4-10.4); MONO % 12.6 %; NEUT % 74.8 %; PLATELET COUNT 183 K/uL (130-400); RED BLOOD COUNT 4.55 M/uL (4.2-5.4); WHITE BLOOD COUNT 8.76 K/uL (4.8-10.8)
--- NOTE | 2016-08-22 08:10 | DIAGNOSTIC IMAGING REPORT ---
CHEST ONE VIEW PORTABLE CLINICAL HISTORY: EVALUATE WEAKNESS dyspnea COMPARISON STUDY: 07/29/2016 FINDINGS: The bones soft tissues and hemidiaphragms are normal. The cardiomediastinal silhouette is normal. The lungs are clear. The pulmonary vasculature is normal. IMPRESSION: Negative chest. The above report was generated using voice recognition software. It may contain grammatical, syntax or spelling errors. Electronically signed by: Barrie Kurtz M.D. 08/22/2016 8:09 AM Dictated Date/Time: 08/22/2016 8:08 AM
[2016-08-22 08:19] LABS: INR 2.4 (0.9-1.1); PARTIAL THROMBOPLASTIN RATIO 1.7; PROTHROMBIN TIME (PATIENT) 27.2 SECONDS (9.0-12.0)
[2016-08-22 08:21] LABS: ALT/SGPT 32 U/L (12-78); BLOOD UREA NITROGEN 15 mg/dl (7-18); BUN/CREATININE RATIO 16.1 (10-20); CALCIUM 9.7 mg/dl (8.5-10.1); CARBON DIOXIDE 27 mmol/L (21-32); CHLORIDE 105 mmol/L (98-107); CREATININE 0.93 mg/dl (0.60-1.20); GLUCOSE 107 mg/dl (70-99); MAGNESIUM 1.7 mg/dl (1.8-2.4); POTASSIUM 3.9 mmol/L (3.5-5.1); SODIUM 137 mmol/L (136-145)
[2016-08-22] MEDS ORDERED: ADAL40KI INJ (08:29)
[2016-08-22 08:30] LABS: ALKALINE PHOSPHATASE 55 U/L (45-117); AST/SGOT 22 U/L (15-37)
[2016-08-22] MEDS ORDERED: ACETAMINOPHEN 500 MG TAB PO STA (08:31)
[2016-08-22 08:40] LABS: URINE APPEARANCE CLEAR (CLEAR); URINE BILIRUBIN NEG (NEG); URINE COLOR YELLOW; URINE NITRITE NEG (NEG); URINE SPECIFIC GRAVITY 1.008 (1.000-1.030); UROBILINOGEN NEG (NEG)
[2016-08-22 08:48] LABS: MANUAL MICROSCOPIC REQUIRED? NO; REVIEW REQ? NO
--- NOTE | 2016-08-22 09:25 | DIAGNOSTIC IMAGING REPORT ---
ABD/PELVIS IV CONTRAST ONLY CT DOSE: 2348.71 mGy.cm HISTORY: Pain. Fever. RLQ pain, high fevers, Frohn's TECHNIQUE: Multiaxial CT images of the abdomen and pelvis were performed following the use of intravenous contrast. COMPARISON STUDY: None. FINDINGS: Lung bases are clear. Liver is uniform throughout. Kidneys negative for hydronephrosis. Pancreas is unremarkable. Mild wall thickening of several segmental loops of small bowel in the lower abdominal and right lower quadrant and terminal ileum regions. This suggestive of radial and neuritis. There is no evidence for abscess collection or obstruction. There are several distended loops of small bowel within the lower anterior pelvic region. Scattered sigmoid diverticuli with no evidence for diverticulitis. IMPRESSION: Moderately thickened loops of small bowel distally suggesting regional enteritis/Crohn's disease. No evidence for abscess collection or obstruction. Moderate segmental small bowel distention The above report was generated using voice recognition software. It may contain grammatical, syntax or spelling errors. Electronically signed by: Barrie Kurtz M.D. 08/22/2016 9:23 AM Dictated Date/Time: 08/22/2016 9:18 AM
[2016-08-22] MEDS ORDERED: CEFEPIME IV 1,000 MG in DEXTROSE 5% 100ML 100 ML IV STA (12:44)
[2016-08-22] MEDS ORDERED: ONDANSETRON INJ 2 MG/ML 2 ML VIAL IV PRN (13:30)
[2016-08-22] MEDS ORDERED: ALUMINUM/MAGNESIUM/SIMETH (MAALOX MAX) 30 ML UDC PO PRN (13:30)
[2016-08-22] MEDS ORDERED: METRONIDAZOLE / NSS 500 MG in PREMIXED NSS 100 ML IV SCH (13:30)
[2016-08-22] MEDS ORDERED: MAGNESIUM HYDROXIDE SUSP 30 ML UDC PO PRN (13:30)
[2016-08-22] MEDS ORDERED: POLYETHYLENE (MIRALAX) 17 GM PACK PO PRN ×2 (13:30)
--- NOTE | 2016-08-22 13:54 | History and Physical ---
History & Physical Date & Time of Service: Aug 22, 2016 at 13:32 Chief Complaint: Illness/Fever Primary Care Physician: Oc Sesay PA-C History of Present Illness Source: patient, clinic records, hospital records Patient is a pleasant 61 y/o female, with PMHx of Crohn's disease, dyslipidemia , h/o PE, h/o SBO, headaches, insomnia, and seasonal allergies who presented to the ED because of fever and RLQ abdominal pain. According to the patient, fevers started during the night. She admits to chills and sweats. RLQ is similar to past experiences with Crohn's flare. She admits to a headache. She has been eating and drinking OK. She admits to a h/o of multiple SBO- her last BM was on 08/21. She follows w/ Dr. Desir. Patient denies any lightheadedness, dizziness, vision changes, CP, palpitations, edema, SOB, wheezing, cough, nausea , vomiting, diarrhea, urinary symptoms, melena, numbness/tingling, weakness, muscle/joint pain, anxiety/depression, active bleeding, or new skin discoloration/changes. Past Medical/Surgical History Medical Problems: Crohn's disease Dyslipidemia h/o PE h/o SBO Headaches Insomnia Seasonal allergies PSH: Tubal ligation Family History Heart disease Diverticulosis Breast cancer Social History Smoking Status: Current Every Day Smoker Drug Use: none Marital Status: Housing status: lives alone Occupational Status: unemployed Multi-Drug Resistant Organisms History of MDRO: No Allergies Coded Allergies: No Known Allergies (Unverified , 08/22/16) Home Medications Scheduled Adalimumab (Humira Pen), 40 MG INJ Q2W Albuterol Hfa (Ventolin Hfa), 2-4 PUFFS INH Q6H Aspirin (Aspirin Ec), 81 MG PO DAILY Atorvastatin (Lipitor), 20 MG PO DAILY Cholecalciferol (Vitamin D3), 2,000 INTER.UNIT PO QAM Cyanocobalamin (Vitamin B12), 1,000 MCG PO DAILY Docusate Sodium (Docusate Sodium), 100 MG PO BID Loratadine (Claritin), 10 MG PO DAILY Pantoprazole (Pantoprazole Sodium), 40 MG PO QAM Prednisone (Prednisone), 10 MG PO DAILY Probiotic Product (Digestive Advantage Probi), 1 CAP PO DAILY Warfarin Sod (Coumadin), 7.5 MG PO DAILY@1600 Scheduled PRN Polyethylene (Miralax), 17 GM PO DAILY PRN for Constipation Tramadol HCl (Tramadol HCl), 50 MG PO Q6H PRN for Pain Trazodone Hcl (Trazodone), 50 MG PO HS PRN for Sleep Physical Exam Vital Signs Date Time Temp Pulse Resp B/P (MAP) Pulse Ox O2 Delivery O2 Flow Rate FiO2 08/22/16 12:32 78 08/22/16 11:06 36.7 73 20 103/63 95 Room Air 08/22/16 09:21 84 23 115/62 98 Room Air 08/22/16 08:32 90 24 96/52 92 Room Air 08/22/16 08:31 105 08/22/16 08:30 93 Room Air 08/22/16 07:35 38.6 103 16 149/80 96 Room Air General Appearance: no apparent distress, + obese Head: normocephalic, atraumatic Eyes: normal inspection, PERRL ENT: hearing grossly normal Neck: supple Respiratory/Chest: lungs clear, no respiratory distress, no accessory muscle use Cardiovascular: regular rate, rhythm Abdomen/GI: normal bowel sounds, soft, + tenderness (mild deep ttp of RLQ ) Back: normal inspection Extremities/Musculoskelatal: no calf tenderness, no pedal edema Neurologic/Psych: alert, normal mood/affect, oriented x 3 Skin: normal color, warm/dry, no rash Diagnostics Laboratory Results Results Past 24 Hours Test 08/22/16 07:40 08/22/16 07:53 Range/Units White Blood Count 8.76 4.8-10.8 K/uL Red Blood Count 4.55 4.2-5.4 M/uL Hemoglobin 14.6 12.0-16.0 g/dL Hematocrit 43.0 37-47 % Mean Corpuscular Volume 94.5 80-100 fL Mean Corpuscular Hemoglobin 32.1 25-34 pg Mean Corpuscular Hemoglobin Concent 34.0 32-36 g/dl Platelet Count 183 130-400 K/uL Mean Platelet Volume 9.7 7.4-10.4 fL Neutrophils (%) (Auto) 74.8 % Lymphocytes (%) (Auto) 10.4 % Monocytes (%) (Auto) 12.6 % Eosinophils (%) (Auto) 1.1 % Basophils (%) (Auto) 0.5 % Neutrophils # (Auto) 6.56 1.4-6.5 K/uL Lymphocytes # (Auto) 0.91 1.2-3.4 K/uL Monocytes # (Auto) 1.10 0.11-0.59 K/uL Eosinophils # (Auto) 0.10 0-0.5 K/uL Basophils # (Auto) 0.04 0-0.2 K/uL RDW Standard Deviation 48.8 36.4-46.3 fL RDW Coefficient of Variation 14.2 11.5-14.5 % Immature Granulocyte % (Auto) 0.6 % Immature Granulocyte # (Auto) 0.05 0.00-0.02 K/uL Prothrombin Time 27.2 9.0-12.0 SECONDS Prothromb Time International Ratio 2.4 0.9-1.1 Activated Partial Thromboplast Time 45.0 21.0-31.0 SECONDS Partial Thromboplastin Ratio 1.7 Urine Color YELLOW Urine Appearance CLEAR CLEAR Urine pH 8.0 4.5-7.5 Urine Specific [place] 1.008 1.000-1.030 Urine Protein NEG NEG Urine Glucose (UA) NEG NEG Urine Ketones NEG NEG Urine Occult Blood NEG NEG Urine Nitrite NEG NEG Urine Bilirubin NEG NEG Urine Urobilinogen NEG NEG Urine Leukocyte Esterase NEG NEG Sodium Level 137 136-145 mmol/L Potassium Level 3.9 3.5-5.1 mmol/L Chloride Level 105 98-107 mmol/L Carbon Dioxide Level 27 21-32 mmol/L Anion Gap 5.0 3-11 mmol/L Blood Urea Nitrogen 15 7-18 mg/dl Creatinine 0.93 0.60-1.20 mg/dl Est Creatinine Clear Calc Drug Dose 84.7 ml/min Estimated GFR () 76.3 Estimated GFR (Non- 65.9 BUN/Creatinine Ratio 16.1 10-20 Random Glucose 107 70-99 mg/dl Calcium Level 9.7 8.5-10.1 mg/dl Magnesium Level 1.7 1.8-2.4 mg/dl Total Bilirubin 0.4 0.2-1 mg/dl Direct Bilirubin < 0.1 0-0.2 mg/dl Aspartate Amino Transf (AST/SGOT) 22 15-37 U/L Alanine Aminotransferase (ALT/SGPT) 32 12-78 U/L Alkaline Phosphatase 55 45-117 U/L Total Creatine Kinase 27 26-192 U/L Creatine Kinase MB < 0.5 0.5-3.6 ng/ml Creatine Kinase MB Ratio 0-3.0 Troponin I < 0.015 0-0.045 ng/ml Total Protein 6.7 6.4-8.2 gm/dl Albumin 3.3 3.4-5.0 gm/dl Lipase 141 73-393 U/L Thyroid Stimulating Hormone (TSH) 1.090 0.300-4.500 uIu/ml Bedside Lactic Acid Venous 1.32 0.90-1.70 mmol/L Microbiology Results 08/22/16 Blood Culture, Received Pending 08/22/16 Blood Culture, Received Pending 08/22/16 Urine Culture, Received Pending Diagnostic Radiology CHEST ONE VIEW PORTABLE CLINICAL HISTORY: EVALUATE WEAKNESS dyspnea COMPARISON STUDY: 07/29/2016 FINDINGS: The bones soft tissues and hemidiaphragms are normal. The cardiomediastinal silhouette is normal. The lungs are clear. The pulmonary vasculature is normal. IMPRESSION: Negative chest. The above report was generated using voice recognition software. It may contain grammatical, syntax or spelling errors. Electronically signed by: Barrie Kurtz M.D. 08/22/2016 8:09 AM Dictated Date/Time: 08/22/2016 8:08 AM The status of this report is Signed. Draft = Not yet reviewed or approved by Radiologist. Signed = Reviewed and approved by Radiologist. ABD/PELVIS IV CONTRAST ONLY CT DOSE: 2348.71 mGy.cm HISTORY: Pain. Fever. RLQ pain, high fevers, Frohn's TECHNIQUE: Multiaxial CT images of the abdomen and pelvis were performed following the use of intravenous contrast. COMPARISON STUDY: None. FINDINGS: Lung bases are clear. Liver is uniform throughout. Kidneys negative for hydronephrosis. Pancreas is unremarkable. Mild wall thickening of several segmental loops of small bowel in the lower abdominal and right lower quadrant and terminal ileum regions. This suggestive of radial and neuritis. There is no evidence for abscess collection or obstruction. There are several distended loops of small bowel within the lower anterior pelvic region. Scattered sigmoid diverticuli with no evidence for diverticulitis. IMPRESSION: Moderately thickened loops of small bowel distally suggesting regional enteritis/Crohn's disease. No evidence for abscess collection or obstruction. Moderate segmental small bowel distention The above report was generated using voice recognition software. It may contain grammatical, syntax or spelling errors. Electronically signed by: Barrie Kurtz M.D. 08/22/2016 9:23 AM Dictated Date/Time: 08/22/2016 9:18 AM The status of this report is Signed. Draft = Not yet reviewed or approved by Radiologist. Signed = Reviewed and approved by Radiologist. EKG JAYDON DIMAS ID:[id number] 22-AUG-2016 07:42:52 [facility] Normal sinus rhythm Normal ECG When compared with ECG of 16-AUG-2016 12:13, MD interval has decreased Vent. rate has increased BY 36 BPM Confirmed by JULIANN REZA ([id number]) on 08/22/2016 9:08:12 AM 25mm/s 10mm/mV 150Hz 8.0 SP2 12SL 241 [place]: 10 Referred by: Referred Self Confirmed By: JULIANN REZA Vent. rate 98 BPM MD interval 170 ms QRS duration 76 ms QT/QTc 338/431 ms P-R-T axes 20 19 1955 (61 yr) Female 0lb Room: Loc:15 [employer] Set Up Operator:CONSTANCE Mahajan ind: Impression Assessment and Plan Patient is a pleasant 61 y/o female, with PMHx of Crohn's disease, dyslipidemia , h/o PE, h/o SBO, headaches, insomnia, and seasonal allergies who presented to the ED because of fever and RLQ abdominal pain. Abdominal pain and fever/ h/o Crohn's disease on Humira Q2W (last injection on )- follows w/ Case: - Admit to med/surg - Abdominal CT- Moderately thickened loops of small bowel distally suggesting regional enteritis/Crohn's disease. No evidence for abscess collection or obstruction. Moderate segmental small bowel distention - NPO - IV NSS @ 100 ml/hr - IV 1000 mg Cefepime x1 given in ED- will continue per Dr. Flores recommendations - IV Dilaudid 1 mg q3 hrs PRN for pain management - Tylenol PRN for pain/fever - IV Zofran PRN nausea - Currently on Prednisone 10 mg daily until 08/24 - UCx and BCx pending - Consult GI, appreciate recommendations Mild hypomagnesemia- 1.7 at admission: - IV 1g Mag x1 - Repeat mag level tomorrow Dyslipidemia: Continue Atorvastatin 20 mg daily h/o PE: Warfarin 7.5 mg daily, follow PT/INR Insomnia: Trazodone 50 mg HS PRN GI Prophylaxis: Protonix 40 mg daily DVT Prophylaxis: Coumadin Code Status: LEVEL I, FULL Dispo: From home, lives w/ sister- no discharge needs anticipated Resident Physician Supervision Note: I was present with the PA during the history and exam. I discussed the case with the PA and agree with the findings and plan as documented in the note. Any exceptions or clarifications are listed here: 61 y/o F well known to me - admitted several times with bowel obstructions due to Crohn's and is under evaluation for elective surgery - she presents with abdominal pain and fever up to 38.5 - no evidence of obstruction - pt recently on Humira and low-dose steroids. OE AAO x 3 S1,2 R CTAB ND - mild tenderness to palpation without guarding No CCE P: Pt will be evaluated by GI Placed on Cefepime by request of GI due to Humira use Cultures pending - IVF, pain control, clear diet Documented By: Lucho Reyes Level of Care Med/Surg Resuscitation Status FULL RESUSCITATION VTE Prophylaxis VTE Risk Assessment Done? Y/N: Yes Risk Level: Low Given or contraindicated: Warfarin (Coumadin), T.E.D. Stockings, SCD's
[2016-08-22 14:07] VITALS: O2SAT 94; Ht 167.6 cm; Wt 125.0 kg
--- NOTE | 2016-08-22 14:43 | EMERGENCY ROOM VISIT NOTE ---
History Report prepared by Chon: Zuleima Sterling Under the Supervision of: Dr. Keon Frey M.D. First contact with patient: 07:41 Chief Complaint: FEVER Stated Complaint: ILLNESS/FEVER History of Present Illness The patient is a 61 year old female who presents to the Emergency Room with complaints of constant fever that was first recorded 3 hours ago, around 0500. The patient's temperature was 103.9 when she measured it this morning. The patient came to the ED via ambulance from home. She rates her discomfort as an 8 /10 in severity. Per the nursing staff note, the patient was up all night sweating even though she felt cold. The patient has not taken anything in an attempt to relieve the fever. She states that she did not take anything because she is on Coumadin. She is also experiencing right lower quadrant abdominal pain which she states is typically where she gets bowel obstructions secondary to Crohn's disease. The patient is supposed to have surgery for her Crohn's disease but it is not scheduled yet. She is also experiencing a headache, bilateral ear pain, and diffuse chest pain. The patient adds that she recently had an unremarkable MRI of her brain. Pt denies LOC, headache, fevers, chills, diaphoresis, visual changes, cough, neck pain, chest pain, breathing difficulties, nausea, vomiting, abdominal pain, back pain, diarrhea, melena, hematochezia, urinary symptoms, numbness, weakness, lymphadenopathy, rash, or other complaints. The patient is also on Humira which she most recently took yesterday. Source of History: patient Onset: 3 hours ago, around 0500 Position: other (global) Symptom Intensity: 8/10 Quality: other (fever) Timing: constant Associated Symptoms: + chest pain (diffuse), + abdominal pain (RLQ) Review of Systems See HPI for pertinent positives and negatives. A total of ten systems were reviewed and were otherwise negative. Past Medical & Surgical Medical Problems: (1) Bowel obstruction (2) Cellulitis (3) Crohn's disease involving terminal ileum (4) Crohns disease (5) Postmenopausal bleeding (6) Pulmonary emboli (7) Rectal bleeding (8) right eye pain and decreased vision for 1 day (9) RUQ abdominal pain (10) SBO (small bowel obstruction) Family History Patient reports no known family medical history. Social History Smoking Status: Current Every Day Smoker Alcohol Use: none Drug Use: none Marital Status: Housing Status: lives with family Occupation Status: unemployed Current/Historical Medications Scheduled Adalimumab (Humira Pen), 40 MG INJ Q2W Albuterol Hfa (Ventolin Hfa), 2-4 PUFFS INH Q6H Aspirin (Aspirin Ec), 81 MG PO DAILY Atorvastatin (Lipitor), 20 MG PO DAILY Cholecalciferol (Vitamin D3), 2,000 INTER.UNIT PO QAM Cyanocobalamin (Vitamin B12), 1,000 MCG PO DAILY Docusate Sodium (Docusate Sodium), 100 MG PO BID Loratadine (Claritin), 10 MG PO DAILY Pantoprazole (Pantoprazole Sodium), 40 MG PO QAM Prednisone (Prednisone), 10 MG PO DAILY Probiotic Product (Digestive Advantage Probi), 1 CAP PO DAILY Warfarin Sod (Coumadin), 7.5 MG PO DAILY@1600 Scheduled PRN Polyethylene (Miralax), 17 GM PO DAILY PRN for Constipation Tramadol HCl (Tramadol HCl), 50 MG PO Q6H PRN for Pain Trazodone Hcl (Trazodone), 50 MG PO HS PRN for Sleep Allergies Coded Allergies: No Known Allergies (Unverified , 08/22/16) Physical Exam Vital Signs Date Time Temp Pulse Resp B/P (MAP) Pulse Ox O2 Delivery O2 Flow Rate FiO2 08/22/16 14:07 94 Room Air 08/22/16 13:41 70 20 112/61 94 Room Air 08/22/16 12:32 78 08/22/16 11:06 36.7 73 20 103/63 95 Room Air 08/22/16 09:21 84 23 115/62 98 Room Air 08/22/16 08:32 90 24 96/52 92 Room Air 08/22/16 08:31 105 08/22/16 08:30 93 Room Air 08/22/16 07:35 38.6 103 16 149/80 96 Room Air Physical Exam GENERAL: Awake, alert, well-appearing, in no distress HENT: Normocephalic, atraumatic. Right TM mildly erythematous, left TM normal, no effusions. Oropharynx unremarkable. EYES: Normal conjunctiva. Sclera non-icteric. NECK: Supple. No nuchal rigidity. FROM. No JVD. RESPIRATORY: Clear to auscultation. CARDIAC: Tachycardic rate, normal rhythm. Extremities warm and well perfused. Pulses equal. ABDOMEN: Soft, non-distended. Right lower quadrant tenderness to palpation. No rebound or guarding. No masses. RECTAL: Deferred. MUSCULOSKELETAL: Chest examination reveals no tenderness. The back is symmetrical on inspection without obvious abnormality. There is no CVA tenderness to palpation. No joint edema. Scattered bruises on left breast and left arm. LOWER EXTREMITIES: Calves are equal size bilaterally and non-tender. No edema. No discoloration. NEURO: Normal sensorium. No sensory or motor deficits noted. SKIN: No rash or jaundice noted. Medical Decision & Procedures ER Provider Diagnostic Interpretation: Radiology results as stated below per my review and radiologist interpretation: CHEST ONE VIEW PORTABLE FINDINGS: The bones soft tissues and hemidiaphragms are normal. The cardiomediastinal silhouette is normal. The lungs are clear. The pulmonary vasculature is normal. IMPRESSION: Negative chest. The above report was generated using voice recognition software. It may contain grammatical, syntax or spelling errors. Electronically signed by: Barrie Kurtz M.D. 08/22/2016 8:09 AM Dictated Date/Time: 08/22/2016 8:08 AM ABD/PELVIS IV CONTRAST ONLY FINDINGS: Lung bases are clear. Liver is uniform throughout. Kidneys negative for hydronephrosis. Pancreas is unremarkable. Mild wall thickening of several segmental loops of small bowel in the lower abdominal and right lower quadrant and terminal ileum regions. This suggestive of radial and neuritis. There is no evidence for abscess collection or obstruction. There are several distended loops of small bowel within the lower anterior pelvic region. Scattered sigmoid diverticuli with no evidence for diverticulitis. IMPRESSION: Moderately thickened loops of small bowel distally suggesting regional enteritis/Crohn's disease. No evidence for abscess collection or obstruction. Moderate segmental small bowel distention The above report was generated using voice recognition software. It may contain grammatical, syntax or spelling errors. Electronically signed by: Barrie Kurtz M.D. 08/22/2016 9:23 AM Dictated Date/Time: 08/22/2016 9:18 AM Laboratory Results 08/22/16 07:40 Red Blood Count 4.55, Mean Corpuscular Volume 94.5, Mean Corpuscular Hemoglobin 32.1, Mean Corpuscular Hemoglobin Concent 34.0, Mean Platelet Volume 9.7, Neutrophils (%) (Auto) 74.8, Lymphocytes (%) (Auto) 10.4, Monocytes (%) (Auto) 12.6, Eosinophils (%) (Auto) 1.1, Basophils (%) (Auto) 0.5, Neutrophils # (Auto ) 6.56, Lymphocytes # (Auto) 0.91, Monocytes # (Auto) 1.10, Eosinophils # (Auto ) 0.10, Basophils # (Auto) 0.04 08/22/16 07:40 Test 08/22/16 07:40 08/22/16 07:53 White Blood Count 8.76 K/uL (4.8-10.8) Red Blood Count 4.55 M/uL (4.2-5.4) Hemoglobin 14.6 g/dL (12.0-16.0) Hematocrit 43.0 % (37-47) Mean Corpuscular Volume 94.5 fL (80-100) Mean Corpuscular Hemoglobin 32.1 pg (25-34) Mean Corpuscular Hemoglobin Concent 34.0 g/dl (32-36) Platelet Count 183 K/uL (130-400) Mean Platelet Volume 9.7 fL (7.4-10.4) Neutrophils (%) (Auto) 74.8 % Lymphocytes (%) (Auto) 10.4 % Monocytes (%) (Auto) 12.6 % Eosinophils (%) (Auto) 1.1 % Basophils (%) (Auto) 0.5 % Neutrophils # (Auto) 6.56 K/uL (1.4-6.5) Lymphocytes # (Auto) 0.91 K/uL (1.2-3.4) Monocytes # (Auto) 1.10 K/uL (0.11-0.59) Eosinophils # (Auto) 0.10 K/uL (0-0.5) Basophils # (Auto) 0.04 K/uL (0-0.2) RDW Standard Deviation 48.8 fL (36.4-46.3) RDW Coefficient of Variation 14.2 % (11.5-14.5) Immature Granulocyte % (Auto) 0.6 % Immature Granulocyte # (Auto) 0.05 K/uL (0.00-0.02) Prothrombin Time 27.2 SECONDS (9.0-12.0) Prothromb Time International Ratio 2.4 (0.9-1.1) Activated Partial Thromboplast Time 45.0 SECONDS (21.0-31.0) Partial Thromboplastin Ratio 1.7 Urine Color YELLOW Urine Appearance CLEAR (CLEAR) Urine pH 8.0 (4.5-7.5) Urine Specific [place] 1.008 (1.000-1.030) Urine Protein NEG (NEG) Urine Glucose (UA) NEG (NEG) Urine Ketones NEG (NEG) Urine Occult Blood NEG (NEG) Urine Nitrite NEG (NEG) Urine Bilirubin NEG (NEG) Urine Urobilinogen NEG (NEG) Urine Leukocyte Esterase NEG (NEG) Anion Gap 5.0 mmol/L (3-11) Est Creatinine Clear Calc Drug Dose 84.7 ml/min Estimated GFR () 76.3 Estimated GFR (Non- 65.9 BUN/Creatinine Ratio 16.1 (10-20) Calcium Level 9.7 mg/dl (8.5-10.1) Magnesium Level 1.7 mg/dl (1.8-2.4) Total Bilirubin 0.4 mg/dl (0.2-1) Direct Bilirubin < 0.1 mg/dl (0-0.2) Aspartate Amino Transf (AST/SGOT) 22 U/L (15-37) Alanine Aminotransferase (ALT/SGPT) 32 U/L (12-78) Alkaline Phosphatase 55 U/L (45-117) Total Creatine Kinase 27 U/L (26-192) Creatine Kinase MB < 0.5 ng/ml (0.5-3.6) Creatine Kinase MB Ratio (0-3.0) Troponin I < 0.015 ng/ml (0-0.045) Total Protein 6.7 gm/dl (6.4-8.2) Albumin 3.3 gm/dl (3.4-5.0) Lipase 141 U/L (73-393) Thyroid Stimulating Hormone (TSH) 1.090 uIu/ml (0.300-4.500) Bedside Lactic Acid Venous 1.32 mmol/L (0.90-1.70) Laboratory results reviewed by me Medications Administered Medications (Trade) Dose Ordered Sig/Rachael Route Start Time Stop Time Status Last Admin Dose Admin Sodium Chloride 1,000 ml @ 999 mls/hr Q1H1M STAT IV 08/22/16 07:52 08/22/16 08:52 DC 08/22/16 07:52 999 MLS/HR Sodium Chloride 1,000 ml @ 125 mls/hr Q8H STAT IV 08/22/16 07:52 08/22/16 15:51 08/22/16 08:28 125 MLS/HR Hydromorphone HCl (Dilaudid Inj) 1 mg Q15M PRN IV 08/22/16 08:00 09/05/16 07:59 08/22/16 08:27 1 MG Promethazine HCl 25 mg/Sodium Chloride 51 ml @ 204 mls/hr NOW STAT IV 08/22/16 07:59 08/22/16 08:13 DC 08/22/16 08:27 204 MLS/HR Acetaminophen (Tylenol Tab) 1,000 mg NOW STAT PO 08/22/16 08:31 08/22/16 08:33 DC 08/22/16 08:46 1,000 MG Cefepime HCl 1000 mg/Dextrose 111.3 ml @ 200 mls/hr NOW STAT IV 08/22/16 12:44 08/22/16 13:17 DC 08/22/16 13:39 200 MLS/HR ECG Indication: chest pain Rate (beats per minute): 98 Rhythm: normal sinus Findings: no acute ischemic change, no ectopy ED Course 0752: Ordered Sodium Chloride 1000 ml @ 125 mls/hr IV, Sodium Chloride 1000 ml @ 999 mls/hr IV 0755: The patient was evaluated in room B5. A complete history and physical exam was performed. 0759: Ordered Promethazine HCl 25 mg/Sodium Chloride 51 ml @ 204 mls/hr IV 0831: Ordered Tylenol Tab 1000 mg PO 1213: I reassessed the patient. She is resting comfortable. I let her know that we are waiting on GI to call back. 1239: Discussed the patient's case with Dr. Sandra MONET. He recommended putting the patient on cefepime for antibiotic coverage. He also recommended admitting the patient to medicine. 1244: Ordered Cefepime HCl 1000 mg/Dextrose 111.3 ml @ 200 mls/hr IV 1250: Upon reexamination, the patient was resting comfortably. I discussed the test results and treatment plan with her. The patient will be evaluated for further management. 1253: [facility] the [facility] The patient will be evaluated for further treatment and disposition. Medical Decision Medication Reconciliation: I attest that I have personally reviewed the patient' s current medication list Blood pressure screening: Patient was found to have an elevated blood pressure and was referred to their primary doctor for recheck and further treatment. Triage Nursing notes reviewed. The patient's presentation and history were concerning for fever, abdominal pain , and history of Humira use. The patient was evaluated. She had tenderness right side of her abdomen. She also noted headache which is a chronic issue for her. She had no meningeal findings. She was given Tylenol. The patient was hydrated. She was given Dilaudid and Zofran for symptom control. The patient had blood work and imaging obtained. Cultures were done. Urinalysis was performed and was negative. Her CBC and chemistry panel are unremarkable. The patient's lactate was negative. CT imaging was concerning as noted above. I did consult with Dr. Flores of gastroenterology. He recommended empiric cefepime and admission to the hospital. I did discuss this with the patient. She was in agreement. The patient was evaluated in the Emergency Room for further management. Consults Time Called: 1211 Consulting Physician: Dr. Sandra MONET Returned Call: 1235 Discussed the patient's case with Dr. Sandra MONET. He recommended putting the patient on cefepime for antibiotic coverage. He also recommended admitting the patient to medicine. Additional Consults: Time Called: 1251 Consulted Physician: Dr. Eric Todd [facility] Returned Call: 1252 Additional Comments: Discussed the patient's [facility] The patient will be evaluated for further treatment and disposition. Impression Primary Impression: Fever Additional Impressions: Inflammatory bowel disease RLQ abdominal pain Scribe Attestation The scribe's documentation has been prepared under my direction and personally reviewed by me in its entirety. I confirm that the note above accurately reflects all work, treatment, procedures, and medical decision making performed by me. Departure Information Dispostion Being Evaluated By Hospitalist Referrals Oc Sesay PA-C (PCP) Patient Instructions My [facility] Problem Qualifiers Primary Impression: Fever Fever type: unspecified Qualified Codes: R50.9 - Fever, unspecified
[2016-08-22 15:56] VITALS: BP 106/71; PULSE 70; TEMP 36.6; O2SAT 95
[2016-08-22] MEDS ORDERED: MAGNESIUM SULFATE 1GM / D5W 1 GM in PREMIXED IN D5W 100 ML IV ONE (16:00)
[2016-08-22] MEDS: SODIUM CHLORIDE 0.9% 1000ML 1,000 ML IV SCH ×2 (16:27→23:52)
[2016-08-22] MEDS: WARFARIN SOD 7.5 MG TAB PO SCH (16:29)
[2016-08-22 17:31] LABS: URINE APPEARANCE CLEAR (CLEAR); URINE BILIRUBIN NEG (NEG); URINE COLOR YELLOW; URINE NITRITE NEG (NEG); UROBILINOGEN NEG (NEG)
[2016-08-22 17:33] LABS: MANUAL MICROSCOPIC REQUIRED? NO; REVIEW REQ? NO
[2016-08-22] MEDS: ACETAMINOPHEN 325 MG TAB PO PRN (19:21)
[2016-08-22] MEDS: DOCUSATE SODIUM 100 MG CAP PO SCH (20:30)
[2016-08-22] MEDS ORDERED: CIPROFLOXACIN / D5W 400 MG in PREMIXED IN D5W 200 ML IV SCH (21:00)
[2016-08-22 23:02] VITALS: BP 102/67; PULSE 60; TEMP 36.5; O2SAT 94
[2016-08-23] VITALS (7 sets, daily range): BP systolic 82–123; BP diastolic 52–78; PULSE 57–87; TEMP 36.5–37; O2SAT 95–97
[2016-08-23] MEDS: ACETAMINOPHEN 325 MG TAB PO PRN (00:43)
[2016-08-23] MEDS: TRAZODONE HCL 50 MG TAB PO PRN (00:58)
[2016-08-23] MEDS: NICOTINE 14 MG/24 HR TDSY TD SCH ×2 (01:40→09:06)
[2016-08-23] MEDS: CEFEPIME IV 1,000 MG in DEXTROSE 5% 100ML 100 ML IV SCH ×2 (01:44→14:26)
[2016-08-23 07:23] LABS: HEMATOCRIT 39.9 % (37-47); MEAN CELL VOLUME 95.9 fL (80-100); MEAN CORPUSCULAR HEMOGLOBIN 31.7 pg (25-34); MEAN CORPUSCULAR HGB CONC 33.1 g/dl (32-36); MEAN PLATELET VOLUME 9.8 fL (7.4-10.4); PLATELET COUNT 166 K/uL (130-400); RED BLOOD COUNT 4.16 M/uL (4.2-5.4); WHITE BLOOD COUNT 4.89 K/uL (4.8-10.8)
[2016-08-23 07:39] LABS: PARTIAL THROMBOPLASTIN RATIO 1.9
[2016-08-23 08:00] LABS: BUN/CREATININE RATIO 13.3 (10-20); CALCIUM 8.6 mg/dl (8.5-10.1); CREATININE 0.82 mg/dl (0.60-1.20); POTASSIUM 3.8 mmol/L (3.5-5.1)
[2016-08-23] MEDS ORDERED: METHYLPREDNISOLONE IV 60 MG in SYRINGE 0 ML IV SCH (09:00)
[2016-08-23] MEDS: DOCUSATE SODIUM 100 MG CAP PO SCH ×2 (09:00→20:49)
[2016-08-23] MEDS: ATORVASTATIN 20 MG TAB PO SCH (09:07)
[2016-08-23] MEDS: PANTOprazole SOD 40 MG TAB PO SCH (09:07)
[2016-08-23] MEDS: SODIUM CHLORIDE 0.9% 1000ML 1,000 ML IV SCH (09:08)
--- NOTE | 2016-08-23 12:42 | Medical Consult ---
Consultation Note Date of Service Aug 23, 2016. Consultation Note Reason for consultation: fever, Crohn's disease History of Present Illness Source: patient, clinic records, hospital records 61 yo female with PMh sig Crohn's disease that is complicated by mult admissions for pSBO, including two admissions in July and one prior admission 08/16. She recently began Humira for Crohn's, and is maintained chronically on pred 10; she is awaiting colorectal surg apptment for management of recurrent pSBO. She is now admitted yesterday with a 1 day h/o fever. On admission, she was febrile with temp 38.6 C; she was tach but normotensive and described as well appearing. She had an abd CT which was without abscess and showed silated small bowel loops that appeared increased in caliber compared to prev by my read ; a UA and CXR showed no evidence of infection. She was placed empirically on cefepime, and is currently without fever. She reports loose large volume non bloody stool x 5 today, which she attributes to recently starting Miralax; she is otherwise without complaint. ROS: She specifically denies leg swelling, CP, SOB, skin erythema, rectal pain. Past Medical/Surgical History Medical Problems: Crohn's disease Dyslipidemia h/o PE h/o SBO Headaches Insomnia Seasonal allergies PSH: Tubal ligation Family History Heart disease Diverticulosis Breast cancer Social History Smoking Status: Current Every Day Smoker Drug Use: none Marital Status: Housing status: lives alone Occupational Status: unemployed Multi-Drug Resistant Organisms History of MDRO: No Allergies Coded Allergies: No Known Allergies (Unverified , 08/22/16) Home Medications Scheduled Adalimumab (Humira Pen), 40 MG INJ Q2W Albuterol Hfa (Ventolin Hfa), 2-4 PUFFS INH Q6H Aspirin (Aspirin Ec), 81 MG PO DAILY Atorvastatin (Lipitor), 20 MG PO DAILY Cholecalciferol (Vitamin D3), 2,000 INTER.UNIT PO QAM Cyanocobalamin (Vitamin B12), 1,000 MCG PO DAILY Docusate Sodium (Docusate Sodium), 100 MG PO BID Loratadine (Claritin), 10 MG PO DAILY Pantoprazole (Pantoprazole Sodium), 40 MG PO QAM Prednisone (Prednisone), 10 MG PO DAILY Probiotic Product (Digestive Advantage Probi), 1 CAP PO DAILY Warfarin Sod (Coumadin), 7.5 MG PO DAILY@1600 Scheduled PRN Polyethylene (Miralax), 17 GM PO DAILY PRN for Constipation Tramadol HCl (Tramadol HCl), 50 MG PO Q6H PRN for Pain Trazodone Hcl (Trazodone), 50 MG PO HS PRN for Sleep Physical Exam Vital Signs Date Time Temp Pulse Resp B/P (MAP) Pulse Ox O2 Delivery O2 Flow Rate FiO2 08/23/16 08:25 114/76 (89) 08/23/16 07:45 97 08/23/16 07:04 96/62 (73) 08/23/16 06:59 36.5 57 18 82/52 (62) 97 Room Air 08/23/16 00:30 Room Air 08/22/16 23:02 36.5 60 18 102/67 (79) 94 Room Air 08/22/16 15:56 36.6 70 18 106/71 (83) 95 Room Air 08/22/16 15:15 Room Air 08/22/16 14:45 77 17 98/57 96 Room Air 08/22/16 14:07 94 Room Air 08/22/16 13:41 70 20 112/61 94 Room Air General Appearance: no apparent distress, + obese Head: normocephalic, atraumatic Eyes: normal inspection, PERRL ENT: hearing grossly normal Neck: supple Respiratory/Chest: lungs clear, no respiratory distress, no accessory muscle use Cardiovascular: regular rate, rhythm Abdomen/GI: normal bowel sounds, soft, non tender to my exam Back: normal inspection Extremities/Musculoskelatal: no calf tenderness, no pedal edema Neurologic/Psych: alert, normal mood/affect, oriented x 3 Skin: normal color, warm/dry, no rash I examined her skin well, and did not find evidence of intertrigo or cellulitis. Diagnostics Laboratory Results Results Past 24 Hours Test 08/22/16 07:40 08/22/16 07:53 Range/Units White Blood Count 8.76 4.8-10.8 K/uL Red Blood Count 4.55 4.2-5.4 M/uL Hemoglobin 14.6 12.0-16.0 g/dL Hematocrit 43.0 37-47 % Mean Corpuscular Volume 94.5 80-100 fL Mean Corpuscular Hemoglobin 32.1 25-34 pg Mean Corpuscular Hemoglobin Concent 34.0 32-36 g/dl Platelet Count 183 130-400 K/uL Mean Platelet Volume 9.7 7.4-10.4 fL Neutrophils (%) (Auto) 74.8 % Lymphocytes (%) (Auto) 10.4 % Monocytes (%) (Auto) 12.6 % Eosinophils (%) (Auto) 1.1 % Basophils (%) (Auto) 0.5 % Neutrophils # (Auto) 6.56 1.4-6.5 K/uL Lymphocytes # (Auto) 0.91 1.2-3.4 K/uL Monocytes # (Auto) 1.10 0.11-0.59 K/uL Eosinophils # (Auto) 0.10 0-0.5 K/uL Basophils # (Auto) 0.04 0-0.2 K/uL RDW Standard Deviation 48.8 36.4-46.3 fL RDW Coefficient of Variation 14.2 11.5-14.5 % Immature Granulocyte % (Auto) 0.6 % Immature Granulocyte # (Auto) 0.05 0.00-0.02 K/uL Prothrombin Time 27.2 9.0-12.0 SECONDS Prothromb Time International Ratio 2.4 0.9-1.1 Activated Partial Thromboplast Time 45.0 21.0-31.0 SECONDS Partial Thromboplastin Ratio 1.7 Urine Color YELLOW Urine Appearance CLEAR CLEAR Urine pH 8.0 4.5-7.5 Urine Specific [place] 1.008 1.000-1.030 Urine Protein NEG NEG Urine Glucose (UA) NEG NEG Urine Ketones NEG NEG Urine Occult Blood NEG NEG Urine Nitrite NEG NEG Urine Bilirubin NEG NEG Urine Urobilinogen NEG NEG Urine Leukocyte Esterase NEG NEG Sodium Level 137 136-145 mmol/L Potassium Level 3.9 3.5-5.1 mmol/L Chloride Level 105 98-107 mmol/L Carbon Dioxide Level 27 21-32 mmol/L Anion Gap 5.0 3-11 mmol/L Blood Urea Nitrogen 15 7-18 mg/dl Creatinine 0.93 0.60-1.20 mg/dl Est Creatinine Clear Calc Drug Dose 84.7 ml/min Estimated GFR () 76.3 Estimated GFR (Non- 65.9 BUN/Creatinine Ratio 16.1 10-20 Random Glucose 107 70-99 mg/dl Calcium Level 9.7 8.5-10.1 mg/dl Magnesium Level 1.7 1.8-2.4 mg/dl Total Bilirubin 0.4 0.2-1 mg/dl Direct Bilirubin < 0.1 0-0.2 mg/dl Aspartate Amino Transf (AST/SGOT) 22 15-37 U/L Alanine Aminotransferase (ALT/SGPT) 32 12-78 U/L Alkaline Phosphatase 55 45-117 U/L Total Creatine Kinase 27 26-192 U/L Creatine Kinase MB < 0.5 0.5-3.6 ng/ml Creatine Kinase MB Ratio 0-3.0 Troponin I < 0.015 0-0.045 ng/ml Total Protein 6.7 6.4-8.2 gm/dl Albumin 3.3 3.4-5.0 gm/dl Lipase 141 73-393 U/L Thyroid Stimulating Hormone (TSH) 1.090 0.300-4.500 uIu/ml Bedside Lactic Acid Venous 1.32 0.90-1.70 mmol/L Microbiology Results 08/22/16 Blood Culture, Received Pending 08/22/16 Blood Culture, Received Pending 08/22/16 Urine Culture, Received Pending Diagnostic Radiology CHEST ONE VIEW PORTABLE CLINICAL HISTORY: EVALUATE WEAKNESS dyspnea COMPARISON STUDY: 07/29/2016 FINDINGS: The bones soft tissues and hemidiaphragms are normal. The cardiomediastinal silhouette is normal. The lungs are clear. The pulmonary vasculature is normal. IMPRESSION: Negative chest. The above report was generated using voice recognition software. It may contain grammatical, syntax or spelling errors. Electronically signed by: Barrie Kurtz M.D. 08/22/2016 8:09 AM Dictated Date/Time: 08/22/2016 8:08 AM The status of this report is Signed. Draft = Not yet reviewed or approved by Radiologist. Signed = Reviewed and approved by Radiologist. ABD/PELVIS IV CONTRAST ONLY CT DOSE: 2348.71 mGy.cm HISTORY: Pain. Fever. RLQ pain, high fevers, Frohn's TECHNIQUE: Multiaxial CT images of the abdomen and pelvis were performed following the use of intravenous contrast. COMPARISON STUDY: None. FINDINGS: Lung bases are clear. Liver is uniform throughout. Kidneys negative for hydronephrosis. Pancreas is unremarkable. Mild wall thickening of several segmental loops of small bowel in the lower abdominal and right lower quadrant and terminal ileum regions. This suggestive of radial and neuritis. There is no evidence for abscess collection or obstruction. There are several distended loops of small bowel within the lower anterior pelvic region. Scattered sigmoid diverticuli with no evidence for diverticulitis. IMPRESSION: Moderately thickened loops of small bowel distally suggesting regional enteritis/Crohn's disease. No evidence for abscess collection or obstruction. Moderate segmental small bowel distention The above report was generated using voice recognition software. It may contain grammatical, syntax or spelling errors. Electronically signed by: Barrie Kurtz M.D. 08/22/2016 9:23 AM Dictated Date/Time: 08/22/2016 9:18 AM The status of this report is Signed. Draft = Not yet reviewed or approved by Radiologist. Signed = Reviewed and approved by Radiologist. EKG JAYDON DIMAS ID:[id number] 22-AUG-2016 07:42:52 [facility] Normal sinus rhythm Normal ECG When compared with ECG of 16-AUG-2016 12:13, AR interval has decreased Vent. rate has increased BY 36 BPM Confirmed by JULIANN REZA ([id number]) on 08/22/2016 9:08:12 AM 25mm/s 10mm/mV 150Hz 8.0 SP2 12SL 241 [place]: 10 Referred by: Referred Self Confirmed By: JULIANN REZA Vent. rate 98 BPM AR interval 170 ms QRS duration 76 ms QT/QTc 338/431 ms P-R-T axes 20 19 34 1955 (61 yr) Female 0lb Room: Loc:15 Regional Account Director:CONSTANCE KEATING Test ind: Impression Assessment and Plan Crohn's disease with recurrent pSBO, on humira and pred, admitted with fever without clear source - Unclear cause of fever -- drug fever, related to Humira? C diff?; no evidence of DVT, PE, perianal abscess, cellulitis/intertrigo by history or exam. Although she looks well, given immunosuppression, would consider 5-7 day course of empiric broad spectrum abx if source remains unclear. - Would consider possibility of PE if no other source of fever is identified; although fever is not common in acute PE and pt is therapeutic on anti-coag on admission, she has risk factors and a history of PE. Will defer this w/u to hospitalist service. Dr. Desir to resume care tomorrow.
--- NOTE | 2016-08-23 12:46 | Progress Note ---
Subjective Date of Service: Aug 23, 2016. Subjective Pt evaluation today including: conversation w/ patient, physical exam, chart review, lab review, review of studies, review of inpatient medication list Pt resting comfortably in bed States right sided flank pain No fevers or chills Problem List Medical Problems: (1) Diarrhea Status: Acute (2) Epistaxis Status: Acute (3) Fever Status: Acute (4) Fistula of intestine, excluding rectum and anus Status: Acute (5) Headache Status: Acute (6) Ileus Status: Acute (7) Inflammatory bowel disease Status: Acute (8) Multiple pulmonary emboli Status: Acute (9) Optic neuritis Status: Acute (10) Partial small bowel obstruction Status: Acute (11) Rectal bleed Status: Acute (12) RLQ abdominal pain Status: Acute (13) RLQ abdominal pain Status: Acute (14) Small bowel obstruction Status: Acute (15) Small bowel obstruction Status: Acute (16) Substernal chest pain Status: Acute (17) Subtherapeutic international normalized ratio (INR) Status: Acute (18) 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 (19) Visual disturbance Status: Acute Review of Systems Constitutional: No fever, No chills, No sweats, No weight loss, No weakness Respiratory: No cough, No sputum, No wheezing, No shortness of breath, No dyspnea on exertion Cardiac: No chest pain, No orthopnea, No PND, No edema, No claudication Abdomen: + pain, No nausea, No vomiting, No diarrhea, No constipation Musculoskeletal: No joint pain, No muscle pain Female : No dysuria, No urinary frequency, No hematuria, No incontinence Neurologic: No memory loss, No paralysis, No weakness, No numbness/tingling Psychiatric: No depression symptoms, No anhedonism, No anxiety, No insomnia Skin: No rash, No itch Objective Vital Signs Date Time Temp Pulse Resp B/P (MAP) Pulse Ox O2 Delivery O2 Flow Rate FiO2 08/23/16 08:25 114/76 (89) 08/23/16 07:45 97 08/23/16 07:04 96/62 (73) 08/23/16 06:59 36.5 57 18 82/52 (62) 97 Room Air 08/23/16 00:30 Room Air 08/22/16 23:02 36.5 60 18 102/67 (79) 94 Room Air 08/22/16 15:56 36.6 70 18 106/71 (83) 95 Room Air 08/22/16 15:15 Room Air 08/22/16 14:45 77 17 98/57 96 Room Air 08/22/16 14:07 94 Room Air 08/22/16 13:41 70 20 112/61 94 Room Air 08/22/16 12:32 78 Physical Exam General Appearance: WD/WN, no apparent distress Eyes: normal inspection, PERRL, EOMI, sclerae normal Neck: supple, no adenopathy, thyroid normal, no JVD Respiratory/Chest: chest non-tender, lungs clear, normal breath sounds, no respiratory distress Cardiovascular: regular rate, rhythm, no edema, no gallop, no JVD Abdomen: normal bowel sounds, soft, no organomegaly, + tenderness Extremities: normal range of motion, non-tender, normal inspection, no pedal edema Neurologic/Psychiatric: no motor/sensory deficits, alert, normal mood/affect, oriented x 3 Skin: normal color, warm/dry, no rash Lymphatic: no adenopathy Laboratory Results Last 24 Hours Test 08/23/16 06:39 White Blood Count 4.89 K/uL Red Blood Count 4.16 M/uL Hemoglobin 13.2 g/dL Hematocrit 39.9 % Mean Corpuscular Volume 95.9 fL Mean Corpuscular Hemoglobin 31.7 pg Mean Corpuscular Hemoglobin Concent 33.1 g/dl RDW Standard Deviation 50.8 fL RDW Coefficient of Variation 14.4 % Platelet Count 166 K/uL Mean Platelet Volume 9.8 fL Activated Partial Thromboplast Time 49.9 SECONDS Partial Thromboplastin Ratio 1.9 Sodium Level 142 mmol/L Potassium Level 3.8 mmol/L Chloride Level 110 mmol/L Carbon Dioxide Level 26 mmol/L Anion Gap 6.0 mmol/L Blood Urea Nitrogen 11 mg/dl Creatinine 0.82 mg/dl Est Creatinine Clear Calc Drug Dose 96.1 ml/min Estimated GFR () 88.9 Estimated GFR (Non- 76.7 BUN/Creatinine Ratio 13.3 Random Glucose 77 mg/dl Calcium Level 8.6 mg/dl Magnesium Level 2.0 mg/dl Assessment and Plan Patient is a pleasant 61 y/o female, with PMHx of Crohn's disease, dyslipidemia , h/o PE, h/o SBO, headaches, insomnia, and seasonal allergies who presented to the ED because of fever and RLQ abdominal pain. Abdominal pain and fever/ h/o Crohn's disease on Humira Q2W (last injection on )- follows w/ Case: - Admitted to med/surg - Abdominal CT- Moderately thickened loops of small bowel distally suggesting regional enteritis/Crohn's disease. No evidence for abscess collection or obstruction. Moderate segmental small bowel distention - NPO - IV NSS @ 100 ml/hr, noted hypotension this AM - IV 1000 mg Cefepime x1 given in ED- will continue per Dr. Flores recommendations - IV Dilaudid 1 mg q3 hrs PRN for pain management - Tylenol PRN for pain/fever - IV Zofran PRN nausea - Currently on Prednisone 10 mg daily until 08/24 - UCx and BCx pending - Consult GI, appreciate recommendations Mild hypomagnesemia-resolved - IV 1g Mag x1 Dyslipidemia: Continue Atorvastatin 20 mg daily h/o PE: Warfarin 7.5 mg daily, follow PT/INR Insomnia: Trazodone 50 mg HS PRN GI Prophylaxis: Protonix 40 mg daily DVT Prophylaxis: Coumadin Code Status: LEVEL I, FULL
[2016-08-23] MEDS: WARFARIN SOD 7.5 MG TAB PO SCH (15:54)
[2016-08-24] MEDS: TRAZODONE HCL 50 MG TAB PO PRN (01:00)
[2016-08-24] MEDS: ACETAMINOPHEN 325 MG TAB PO PRN (01:01)
[2016-08-24] MEDS: CEFEPIME IV 1,000 MG in DEXTROSE 5% 100ML 100 ML IV SCH ×2 (02:23→13:50)
[2016-08-24 05:48] LABS: HEMATOCRIT 38.5 % (37-47); MEAN CELL VOLUME 94.6 fL (80-100); MEAN CORPUSCULAR HEMOGLOBIN 31.7 pg (25-34); MEAN CORPUSCULAR HGB CONC 33.5 g/dl (32-36); MEAN PLATELET VOLUME 9.2 fL (7.4-10.4); PLATELET COUNT 178 K/uL (130-400); RED BLOOD COUNT 4.07 M/uL (4.2-5.4); WHITE BLOOD COUNT 4.56 K/uL (4.8-10.8)
[2016-08-24 06:03] LABS: INR 3.6 (0.9-1.1); PARTIAL THROMBOPLASTIN RATIO 1.9; PROTHROMBIN TIME (PATIENT) 41.1 SECONDS (9.0-12.0)
[2016-08-24 06:21] LABS: BUN/CREATININE RATIO 13.3 (10-20); CALCIUM 8.8 mg/dl (8.5-10.1); POTASSIUM 3.8 mmol/L (3.5-5.1)
[2016-08-24 07:48] VITALS: BP 104/69; PULSE 99; TEMP 36.6; O2SAT 96
[2016-08-24] MEDS: DOCUSATE SODIUM 100 MG CAP PO SCH (08:43)
[2016-08-24] MEDS: PANTOprazole SOD 40 MG TAB PO SCH (08:43)
[2016-08-24] MEDS: ATORVASTATIN 20 MG TAB PO SCH (08:43)
[2016-08-24] MEDS: NICOTINE 14 MG/24 HR TDSY TD SCH (08:45)
--- NOTE | 2016-08-24 12:28 | Hospitalist Progress Note ---
Hospitalist Progress Note Date of Service Aug 24, 2016. Subjective Pt evaluation today including: conversation w/ patient, physical exam, chart review, lab review, review of inpatient medication list Pain: 4/10 abdominal pain, pt states this is chronic PO Intake: Tolerating low fiber diet Voiding: no voiding problems Patient reports feeling well. She complains of a 4/10 pain in her RLQ that she states is chronic and is her baseline secondary to her Crohn's disease. She is tolerating a low fiber diet well without nausea, vomiting, or increased abdominal pain. She had several loose bowel movements yesterday and is passing gas. She has remained afebrile. The patient denies fevers, chills, sweats, chest pain, palpitations, claudication, cough, wheezing, shortness of breath, nausea, vomiting, dysuria, hematuria, urinary retention, paralysis, weakness, numbness and tingling. Additional Comments: See HPI for pertinent positives and negatives. All other systems reviewed and negative. Objective Vital Signs Date Time Temp Pulse Resp B/P (MAP) Pulse Ox O2 Delivery O2 Flow Rate FiO2 08/24/16 08:00 Room Air 08/24/16 07:48 36.6 99 18 104/69 (81) 96 Room Air 08/24/16 01:05 Room Air 08/24/16 01:00 Room Air 08/23/16 22:55 37.0 74 16 116/73 (87) 96 Room Air 08/23/16 17:56 36.6 87 18 123/78 (93) 96 Room Air 08/23/16 15:40 Room Air 08/23/16 15:29 36.8 76 18 107/68 (81) 95 Room Air Physical Exam Notes: General appearance: +Morbidly obese. Well-developed, well-nourished, no apparent distress Head: Normocephalic, atraumatic Eyes: Normal inspection, PERRL, EOMI ENT: Normal ENT inspection, hearing grossly normal, pharynx normal Neck: Supple, no JVD, trachea midline Respiratory/Chest: +Small lump in left lateral breast in area of ecchymosis. Lungs clear to auscultation, normal breath sounds, no respiratory distress Cardiovascular: Regular rate & rhythm, no gallop, no murmur Abdomen/GI: +RUQ and RLQ mildly TTP. Normal bowel sounds, soft Extremities/Musculoskeletal: Normal inspection, no calf tenderness, no pedal edema Neurological/Psych: Alert, normal mood/affect, oriented x 3 Skin: Normal color, warm/dry, no rash, Laboratory Results Last 24 Hours Test 08/23/16 18:27 08/24/16 05:32 Troponin I < 0.015 ng/ml White Blood Count 4.56 K/uL Red Blood Count 4.07 M/uL Hemoglobin 12.9 g/dL Hematocrit 38.5 % Mean Corpuscular Volume 94.6 fL Mean Corpuscular Hemoglobin 31.7 pg Mean Corpuscular Hemoglobin Concent 33.5 g/dl RDW Standard Deviation 48.8 fL RDW Coefficient of Variation 14.0 % Platelet Count 178 K/uL Mean Platelet Volume 9.2 fL Prothrombin Time 41.1 SECONDS Prothromb Time International Ratio 3.6 Activated Partial Thromboplast Time 50.1 SECONDS Partial Thromboplastin Ratio 1.9 Sodium Level 142 mmol/L Potassium Level 3.8 mmol/L Chloride Level 108 mmol/L Carbon Dioxide Level 27 mmol/L Anion Gap 7.0 mmol/L Blood Urea Nitrogen 13 mg/dl Creatinine 1.00 mg/dl Est Creatinine Clear Calc Drug Dose 78.8 ml/min Estimated GFR () 69.9 Estimated GFR (Non- 60.3 BUN/Creatinine Ratio 13.3 Random Glucose 95 mg/dl Calcium Level 8.8 mg/dl Magnesium Level 2.0 mg/dl Assessment and Plan 61 y/o female with a history of Crohn's disease, dyslipidemia, h/o PE, h/o SBO, headaches, insomnia, and seasonal allergies who presented to the ED because of fever and RLQ abdominal pain. Abdominal pain and fever, h/o Crohn's disease on Humira Q2W (last injection on )- follows w/ Case--stable - Admit to med/surg - Abdominal CT- Moderately thickened loops of small bowel distally suggesting regional enteritis/Crohn's disease. No evidence for abscess collection or obstruction. Moderate segmental small bowel distention - Tolerating low fiber diet - Continue Cefepime 1 mg IV BID. Day #3 - IV Dilaudid 1 mg q3 hrs PRN for pain management - Tylenol PRN for pain/fever - IV Zofran PRN nausea - Last dose of Prednisone today, then discontinue - Urine culture negative - Blood cultures NGTD - C diff negative, stool cultures negative - Consult GI, appreciate recommendations: consider 5-7 days empiric antibiotics for fever of unknown source. - Talked to case management about setting up colorectal surgery appointment Mild hypomagnesemia--resolved - Magnesium stable at 2.0 Dyslipidemia -Continue atorvastatin 20 mg PO qd h/o PE -INR supratherapeutic at 3.6 on 08/24 -Hold warfarin today -Continue to monitor PT/INR Insomnia -Continue trazodone 50 mg PO qhs prn Breast lump--pt states she is not up to date with mammograms -Recommend outpatient mammogram DVT prophylaxis -Warfarin Code Status -Level I, FULL RESUSCITATION STATUS
[2016-08-24] MEDS ORDERED: CEFE1INJ3 IV (14:29)
[2016-08-24] MEDS ORDERED: [UNRECOGNIZED DRUG - CODE] IV (14:29)
--- NOTE | 2016-08-24 14:53 | Discharge Instructions ---
Discharge Instructions Date of Service Aug 24, 2016. Admission Reason for Admission: Crohsn Disease Discharge Discharge Diagnosis / Problem: Crohn's disease failure of medical management Discharge Goals Goal(s): Decrease discomfort, Diagnostic testing, Therapeutic intervention Activity Recommendations Activity Limitations: resume your previous activity . Instructions / Follow-Up Instructions / Follow-Up The patient is being transferred to [facility] to see the colorectal surgeon as she has failed medical management of her Crohn's disease and will need surgical intervention for more definitive treatment. Recommendations: *Solu-Medrol 40 mg IV twice a day. *May continue Cefepime 1 gm IV every 12 hours. *INR was supratherapeutic on 08/24/ at 3.6. Suggest holding warfarin for now as well as aspirin for upcoming procedure. Follow up: *Patient should follow up with her primary care provider, Oc Sesay PA-C , within 1 week following discharge from [facility]. *Patient should also follow up with her degreasing solution reclaimer, Dr. Desir, within 1- 2 weeks following discharge. *A small breast lump was found in the patient's left breast. She is not up to date with her mammograms. Recommend having a mammogram done as an outpatient when possible. Current Hospital Diet Patient's current hospital diet: Low Fiber Diet Discharge Diet Recommended Diet: Low Fiber Diet Pending Studies Studies pending at discharge: yes List of pending studies: Repeat blood cultures Laboratory Results Hemoglobin A1c Test 06/21/16 10:55 Range/Units Estimated Average Glucose 114 mg/dl Hemoglobin A1c 5.6 4.5-5.6 % Lipid Panel Test 06/22/16 06:25 Range/Units Triglycerides Level 166 H 0-150 mg/dl Cholesterol Level 254 H 0-200 mg/dl HDL Cholesterol 62 mg/dl Cholesterol/HDL Ratio 4.1 LDL Cholesterol, Calculated 159 mg/dl Medical Emergencies . Who to Call and When: Medical Emergencies: If at any time you feel your situation is an emergency, please call 911 immediately. . Non-Emergent Contact Non-Emergency issues call your: Primary Care Provider, [employer], Surgeon Call Non-Emergent contact if: you have a fever, your pain is not controlled, your pain is worsening, your pain is unusual for you, your pain is concerning you, you have any medication questions . Past History Medical & Surgical History: (1) Partial small bowel obstruction (2) Crohns disease . "Provider Documentation" section prepared by Merced Taylor. . VTE Core Measure Inpt VTE Proph given/why not?: Warfarin (Coumadin), Jah Walker, SCD's
[2016-08-24] MEDS ORDERED: METHYLPREDNISOLONE IV 40 MG in SYRINGE 0 ML IV ONE (15:00)
--- NOTE | 2016-08-24 15:14 | Discharge Summary ---
Discharge Summary Date of Service Aug 24, 2016. Discharge Summary Admission Date: Aug 22, 2016 at 13:32 Discharge Date: Aug 24, 2016 Discharge Disposition: Acute care facility ([facility]) Principal Diagnosis: Crohn's disease failed medical management, partial small bowel obstruction Procedures: CHEST ONE VIEW PORTABLE CLINICAL HISTORY: EVALUATE WEAKNESS dyspnea COMPARISON STUDY: 07/29/2016 FINDINGS: The bones soft tissues and hemidiaphragms are normal. The cardiomediastinal silhouette is normal. The lungs are clear. The pulmonary vasculature is normal. IMPRESSION: Negative chest. ABD/PELVIS IV CONTRAST ONLY CT DOSE: 2348.71 mGy.cm HISTORY: Pain. Fever. RLQ pain, high fevers, Frohn's TECHNIQUE: Multiaxial CT images of the abdomen and pelvis were performed following the use of intravenous contrast. COMPARISON STUDY: None. FINDINGS: Lung bases are clear. Liver is uniform throughout. Kidneys negative for hydronephrosis. Pancreas is unremarkable. Mild wall thickening of several segmental loops of small bowel in the lower abdominal and right lower quadrant and terminal ileum regions. This suggestive of radial and neuritis. There is no evidence for abscess collection or obstruction. There are several distended loops of small bowel within the lower anterior pelvic region. Scattered sigmoid diverticuli with no evidence for diverticulitis. IMPRESSION: Moderately thickened loops of small bowel distally suggesting regional enteritis/Crohn's disease. No evidence for abscess collection or obstruction. Moderate segmental small bowel distention Consultations: Gastroenterology--Dr. Flores, Case Medication Reconciliation New Medications: Cefepime Hcl (Cefepime) 1 Gm Inj 1000 MG IV Q12 for 4 Days Methylprednisolone Sod Succ (Solu-Medrol) 40 Mg Inj 40 MG IV BID for 2 Days Continued Medications: Adalimumab (Humira Pen) 40 Mg/0.8 Ml Kit 40 MG INJ Q2W Albuterol Hfa (Ventolin Hfa) 200 Puffs/52612 Mcg Aers 2-4 PUFFS INH Q6H, #1 INHALER Atorvastatin (Lipitor) 20 Mg Tab 20 MG PO DAILY, TAB Cholecalciferol (Vitamin D3) 1,000 Inter.unit Tab 2000 INTER.UNIT PO QAM for 30 Days, TAB OTC Cyanocobalamin (Vitamin B12) 1,000 Mcg Tab 1000 MCG PO DAILY Docusate Sodium (Docusate Sodium) 100 Mg Cap 100 MG PO BID for 30 Days, #60 CAP Loratadine (Claritin) 10 Mg Tab 10 MG PO DAILY, TAB Pantoprazole (Pantoprazole Sodium) 40 Mg Tab 40 MG PO QAM for 30 Days, #30 TAB Polyethylene (Miralax) 17 Gm Pow 17 GM PO DAILY PRN for Constipation, #30 PKT Probiotic Product (Digestive Advantage Probi) 1 Chw Chw 1 CAP PO DAILY Tramadol HCl (Tramadol HCl) 50 Mg Tab 50 MG PO Q6H PRN for Pain, #30 TAB Trazodone Hcl (Trazodone) 50 Mg Tab 50 MG PO HS PRN for Sleep, TAB Discontinued Medications: Aspirin (Aspirin Ec) 81 Mg Tab 81 MG PO DAILY Prednisone (Prednisone) 10 Mg Tab 10 MG PO DAILY, #7 TAB Warfarin Sod (Coumadin) 7.5 Mg Tab 7.5 MG PO DAILY@1600, #30 TAB Discharge Exam Patient reports feeling well. She complains of a 4/10 pain in her RLQ that she states is chronic and is her baseline secondary to her Crohn's disease. She is tolerating a low fiber diet well without nausea, vomiting, or increased abdominal pain. She had several loose bowel movements yesterday and is passing gas. She has remained afebrile. The patient denies fevers, chills, sweats, chest pain, palpitations, claudication, cough, wheezing, shortness of breath, nausea, vomiting, dysuria, hematuria, urinary retention, paralysis, weakness, numbness and tingling. Review of Systems: Constitutional: No fever, No chills, No sweats Eyes: No worsening of vision, No eye pain, No diplopia ENT: No hearing loss, No sore throat, No trouble swallowing Respiratory: No cough, No wheezing, No shortness of breath Cardiovascular: No chest pain, No claudication, No palpitations Abdomen: + pain (4/10 RLQ pain, chronic secondary to Crohn's), No nausea, No vomiting Musculoskeletal: No joint pain, No muscle pain, No calf pain Genitourinary - Female: No dysuria, No urinary retention, No hematuria Neurologic: No paralysis, No weakness, No numbness/tingling Integumentary: No rash, No itch, No color change Physical Exam: General Appearance: WD/WN, no apparent distress, + obese (morbidly obese) Eyes: normal inspection, PERRL, EOMI ENT: normal ENT inspection, hearing grossly normal, pharynx normal Neck: supple, no JVD, trachea midline Respiratory/Chest: lungs clear, normal breath sounds, no respiratory distress, + pertinent finding (small lump left breast, left lower quadrant in area of ecchymosis) Cardiovascular: regular rate, rhythm, no gallop, no murmur Abdomen / GI: normal bowel sounds, soft, + tenderness (RLQ and RUQ mildly TTP) Extremities: normal inspection, no calf tenderness, no pedal edema Neurologic/Psychiatric: alert, normal mood/affect, oriented x 3 Skin: normal color, warm/dry, no rash Hospital Course 61 y/o female with a history of Crohn's disease, dyslipidemia, h/o PE, h/o SBO, headaches, insomnia, and seasonal allergies who presented to the ED because of fever and RLQ abdominal pain. Abdominal pain and fever, h/o Crohn's disease on Humira Q2W (last injection on )- follows w/ Dr. Desir--stable - Admit to med/surg - Abdominal CT- Moderately thickened loops of small bowel distally suggesting regional enteritis/Crohn's disease. No evidence for abscess collection or obstruction. Moderate segmental small bowel distention - Tolerating low fiber diet - Continue Cefepime 1 mg IV BID. Day #3 of 7 - IV Dilaudid 1 mg q3 hrs PRN for pain management, although patient has not required this - Tylenol PRN for pain/fever - IV Zofran PRN nausea - Completed Prednisone taper 08/24 - Urine culture negative - Blood cultures NGTD, repeat cultures pending - C diff negative, stool cultures negative - Consult GI, appreciate recommendations: consider 5-7 days empiric antibiotics for fever of unknown source. Recommend Solu-Medrol 40 mg IV BID. Recommend transfer to [facility] as pt has repeatedly failed medical management and will require surgical intervention. Pt is agreeable to surgery but not reliable enough to meet with surgery as an outpatient. Mild hypomagnesemia--resolved - Magnesium had been mildly low at 1.7 on admission, given magnesium sulfate 1 gm IV x 1 - Magnesium stable at 2.0 Dyslipidemia -Continue atorvastatin 20 mg PO qd h/o PE -INR supratherapeutic at 3.6 on 08/24 -Hold warfarin today -Continue to monitor PT/INR -Hold warfarin and ASA for upcoming surgery Insomnia -Continue trazodone 50 mg PO qhs prn Breast lump--pt states she is not up to date with mammograms -Recommend outpatient mammogram DVT prophylaxis -Warfarin supratherapeutic Code Status -Level I, FULL RESUSCITATION STATUS Total Time Spent: Greater than 30 minutes This includes examination of the patient, discharge planning, medication reconciliation, and communication with other providers. Discharge Instructions Please refer to the electronic Patient Visit Report (Discharge Instructions) for additional information. Additional Copies To Oc Sesay PA-C
[2016-08-24 15:20] VITALS: BP 126/67; PULSE 83; TEMP 36.6; O2SAT 96
[2016-08-24 16:24] VITALS: BP 126/67; PULSE 83; TEMP 36.6; O2SAT 96
[2016-08-24] MEDS ORDERED: METHYLPREDNISOLONE IV 40 MG in SYRINGE 0 ML IV SCH (21:00)
== END 2016-08-24 17:10 | disposition short-term general hospital (02) | DRG 386 ==
LOC: EDBD 07:26 → C.EDB 07:28 → C.MSW 13:32 → ENRESERV 14:06
PROVIDERS: ADMIT Internal Medicine; ATTEND Hospitalist
DX: K50.90 Crohn's disease, unspecified, without complications (principal); K56.60 Unspecified intestinal obstruction; F17.200 Nicotine dependence, unspecified, uncomplicated; R50.9 Fever, unspecified; E78.5 Hyperlipidemia, unspecified; E83.42 Hypomagnesemia; G47.00 Insomnia, unspecified; Z86.711 Personal history of pulmonary embolism; Z98.51 Tubal ligation status; Z79.82 Long term (current) use of aspirin; Z79.01 Long term (current) use of anticoagulants

== ENCOUNTER 2016-09-15 17:30 | Emergency (ER) | payer OTHER ==
[~2016-09-15] VITALS: Ht 167.6 cm; Wt 122.3 kg
[~2016-09-15 17:30] MED LIST changes: +ADAL40KI INJ; -ADAL40KI SQ; -ASPI81TA28 PO; +CEFE1INJ3 IV; -CMD75 PO; -LVNIS120 SQ; -PRD10 PO; +[UNRECOGNIZED DRUG - CODE] IV
[2016-09-15 17:37] VITALS: TEMP 36.7; Ht 167.6 cm; Wt 122.3 kg
[2016-09-15] MEDS ORDERED: SODIUM CHLORIDE 0.9% 1000ML 1,000 ML IV STA (17:56)
--- NOTE | 2016-09-15 17:57 | EMERGENCY ROOM VISIT NOTE ---
History Report prepared by Chon: Walter Sorto Under the Supervision of: Dr. Oz Vann M.D. First contact with patient: 17:41 Chief Complaint: ABDOMINAL PAIN Stated Complaint: AB & R SIDE PAIN Nursing Triage Summary: abd pain, colonoscopy September 03, explor surg 09/07 discharged from [place] Sep 11. complains of mid abd pain. wound vac in place, picc line in place left upper arm, colostomy draining liquid brown stool. History of Present Illness The patient is a 61 year old female with Crohn's disease who presents to the Emergency Room with complaints of persistent mid abdominal pain that started earlier today. The patient was in [place] on the 03 of September for a colostomy, and then had to have emergency exploratory surgery on the 07 of September. She was discharged from there 4 days ago. The patient notes that she had some bleeding. The patient has a would vac in place as well as a PICC line in her left upper arm. The PICC line was put in on the 07 of September because she says that it is hard for them to draw blood. She states that she was told by her doctors at [place] that if she would get a temperature, to come immediately to the ED. The patient says that 2 hours ago, she started having a fever of as high as 100.3. She adds that her abdominal pain is new today as well. She states that she just did not feel right today. The patient says that she had one bowel movement through her colostomy bag, which appeared normal without any blood. The patient denies any chest pain, shortness of breath, cough, feelings of abdominal distension, burning with urination, or swelling or pain in her legs. The patient says that she is on Lovenox twice per day. She has a history of blood clots, and she states that her clots moved from her legs to her lungs. Source of History: patient Onset: Earlier today Position: abdomen (mid) Timing: other (persistent) Associated Symptoms: + fevers, No cough, No chest pain, No SOB, No hematochezia, No urinary symptoms Note: Associated symptoms: Denies abdominal distension, swelling or pain in legs. Review of Systems See HPI for pertinent positives & negatives. A total of 10 systems reviewed and were otherwise negative. Past Medical & Surgical Medical Problems: (1) Bowel obstruction (2) Cellulitis (3) Crohn's disease involving terminal ileum (4) Crohns disease (5) Partial small bowel obstruction (6) Postmenopausal bleeding (7) Pulmonary emboli (8) Rectal bleeding (9) right eye pain and decreased vision for 1 day (10) RUQ abdominal pain (11) SBO (small bowel obstruction) Old medical records were reviewed. Nurse's notes were reviewed and I agree with. Family History Patient reports no known family medical history. Social History Smoking Status: Current Every Day Smoker Alcohol Use: none Drug Use: none Marital Status: Housing Status: lives with family Occupation Status: unemployed Current/Historical Medications Scheduled Atorvastatin (Lipitor), 20 MG PO DAILY Cholecalciferol (Vitamin D3), 2,000 UNITS PO QAM Cyanocobalamin (Vitamin B12), 1,000 MCG PO DAILY Enoxaparin (Lovenox), 120 MG SQ Q12H Loratadine (Claritin), 10 MG PO DAILY Metronidazole (Flagyl), 1 TAB PO TID Nicotine (Nicoderm Cq 21MG Patch), 1 PATCH TD DAILY Pantoprazole (Protonix), 40 MG PO QAM Prednisone (Prednisone), 20 MG PO DAILY W/FOOD. Probiotic Product (Digestive Advantage Probi), 1 CAP PO DAILY Scheduled PRN Acetaminophen (Tylenol), 650 MG PO Q4H PRN for Pain Oxycodone Ir (Roxicodone Ir), 5 MG PO Q4H PRN for Severe Pain Trazodone Hcl (Trazodone), 50 MG PO HS PRN for Sleep Allergies Coded Allergies: No Known Allergies (Unverified , 09/15/16) Physical Exam Vital Signs Date Time Temp Pulse Resp B/P (MAP) Pulse Ox O2 Delivery O2 Flow Rate FiO2 09/15/16 21:19 72 18 109/66 Room Air 09/15/16 20:46 77 18 122/62 97 Room Air 09/15/16 17:37 36.7 78 18 133/70 98 Room Air Physical Exam General: Chronically ill appearing older female in no acute distress, breathing comfortably on room air. Normal speech HEENT: Normal cephalic atraumatic. Pupils are equal round and reactive to light. Extraocular movements are intact. Oropharynx is pink with moist mucous membranes. No swelling of the mouth lips or tongue. Neck: Supple with a midline trachea. No meningeal signs or stiffness, no JVD or bruits. No Stridor. Chest: Clear to auscultation bilaterally. No wheezes or rhonchi. No increased work of breathing. Heart: regular rate and rhythm. Abdomen: Ostomy in right abdomen that has a bag full of stool. Stitches of ostomy intact. There are serosanguineous changes around but no definite puss. Wound vac centrally, nontender. Extremities: No cyanosis clubbing or edema. No calf tenderness or assymetry Spine/Back. Non tender to palpation. No CVA tenderness Skin: Good turgor without rashes. Neurologic exam: Cranial nerves two through 12 are intact. Motor and sensation are intact and symmetrical throughout. Medical Decision & Procedures ER Provider Diagnostic Interpretation: CT results as stated below per my review and radiologist interpretation: ABD/PELVIS IV CONTRAST ONLY HISTORY: 61 years-old Female eval for post-op infection/abcess. Abdominal pain with history of inflammatory bowel disease. COMPARISON: CT abdomen and pelvis 08/22/2016 TECHNIQUE: Multiple axial CT images of the abdomen and pelvis were obtained following the intravenous administration of 93 mL Optiray 320. A dose lowering technique was used consistent with the principals of PAOLA. FINDINGS: Lung bases are generally clear. No pneumoperitoneum identified. Inferior cardiac chambers are unremarkable with coronary arterial calcifications seen. Gallbladder is partially contracted. The liver, spleen, pancreas and left adrenal gland are unremarkable. There is a 9 x 8 mm low attenuating circumscribed lesion of the right adrenal gland suggesting an adenoma. Kidneys, ureters, urinary bladder and uterus appear unremarkable. There is mild to moderate atherosclerotic plaquing of the abdominal aorta. No bulky retroperitoneal adenopathy is seen. There is minimal air-fluid level in seen within nondilated loops of small bowel, likely incidental. There is no bowel obstruction. The majority of the colon is decompressed. Postsurgical changes are seen in the right lower quadrant suggesting partial resection of the distal ileum with partial right hemicolectomy. The anastomosis appears intact. There is mild stranding of the lower abdomen with several loops of nondilated small bowel adjacent to the anterior abdominal wall which may reflect underlying adhesions. There is induration of the anterior abdominal wall with metallic likely suture materials present. Right lower quadrant ostomy is present with diastases of 3.0 cm. There is a small parastomal hernia of mesenteric fat. No abscess or drainable collection of the abdominal wall identified. Nodularity lower anterior abdominal wall is seen suggesting injection granulomas. Multilevel degenerative changes of the lumbar spine are noted. There is mild levoscoliosis of the lumbar spine as well. IMPRESSION: 1. Postsurgical changes of the bowel within the right lower quadrant suggest recent partial right hemicolectomy with resection of the distal ileum. No pneumoperitoneum. 2. Mild mesenteric stranding of the lower abdomen is likely physiologic postsurgical changes without intra-abdominal or abdominal wall abscess or fluid collection identified. 3. Postsurgical changes of the abdominal wall as above. 4. Right lower quadrant ostomy with small parastomal hernia. The above report was generated using voice recognition software. It may contain grammatical, syntax or spelling errors. Electronically signed by: Neil Bryan M.D. 09/15/2016 8:54 PM Dictated Date/Time: 09/15/2016 8:46 PM Laboratory Results 09/15/16 18:55 Red Blood Count 4.38, Mean Corpuscular Volume 93.2, Mean Corpuscular Hemoglobin 32.6, Mean Corpuscular Hemoglobin Concent 35.0, Mean Platelet Volume 9.5, Neutrophils (%) (Auto) 61.1, Lymphocytes (%) (Auto) 31.0, Monocytes (%) (Auto) 5.8, Eosinophils (%) (Auto) 0.4, Basophils (%) (Auto) 0.4, Neutrophils # (Auto) 4.21, Lymphocytes # (Auto) 2.14, Monocytes # (Auto) 0.40, Eosinophils # (Auto) 0.03, Basophils # (Auto) 0.03 09/15/16 18:55 Test 09/15/16 18:55 09/15/16 18:58 White Blood Count 6.90 K/uL (4.8-10.8) Red Blood Count 4.38 M/uL (4.2-5.4) Hemoglobin 14.3 g/dL (12.0-16.0) Hematocrit 40.8 % (37-47) Mean Corpuscular Volume 93.2 fL (80-100) Mean Corpuscular Hemoglobin 32.6 pg (25-34) Mean Corpuscular Hemoglobin Concent 35.0 g/dl (32-36) Platelet Count 246 K/uL (130-400) Mean Platelet Volume 9.5 fL (7.4-10.4) Neutrophils (%) (Auto) 61.1 % Lymphocytes (%) (Auto) 31.0 % Monocytes (%) (Auto) 5.8 % Eosinophils (%) (Auto) 0.4 % Basophils (%) (Auto) 0.4 % Neutrophils # (Auto) 4.21 K/uL (1.4-6.5) Lymphocytes # (Auto) 2.14 K/uL (1.2-3.4) Monocytes # (Auto) 0.40 K/uL (0.11-0.59) Eosinophils # (Auto) 0.03 K/uL (0-0.5) Basophils # (Auto) 0.03 K/uL (0-0.2) RDW Standard Deviation 45.9 fL (36.4-46.3) RDW Coefficient of Variation 13.4 % (11.5-14.5) Immature Granulocyte % (Auto) 1.3 % Immature Granulocyte # (Auto) 0.09 K/uL (0.00-0.02) Prothrombin Time 10.4 SECONDS (9.0-12.0) Prothromb Time International Ratio 1.0 (0.9-1.1) Activated Partial Thromboplast Time 30.7 SECONDS (21.0-31.0) Partial Thromboplastin Ratio 1.2 Anion Gap 8.0 mmol/L (3-11) Est Creatinine Clear Calc Drug Dose 85.5 ml/min Estimated GFR () 78.4 Estimated GFR (Non- 67.6 BUN/Creatinine Ratio 13.6 (10-20) Calcium Level 9.5 mg/dl (8.5-10.1) Total Bilirubin 0.5 mg/dl (0.2-1) Direct Bilirubin 0.1 mg/dl (0-0.2) Aspartate Amino Transf (AST/SGOT) 23 U/L (15-37) Alanine Aminotransferase (ALT/SGPT) 38 U/L (12-78) Alkaline Phosphatase 58 U/L (45-117) Total Protein 6.6 gm/dl (6.4-8.2) Albumin 3.0 gm/dl (3.4-5.0) Lipase 137 U/L (73-393) Bedside Lactic Acid Venous 1.31 mmol/L (0.90-1.70) Laboratory studies as stated above per my review. Medications Administered Medications (Trade) Dose Ordered Sig/Rachael Route Start Time Stop Time Status Last Admin Dose Admin Sodium Chloride 1,000 ml @ 999 mls/hr Q1H1M STAT IV 09/15/16 17:56 09/15/16 18:56 DC 09/15/16 19:03 999 MLS/HR Metronidazole (Flagyl Tab) 250 mg NOW ONCE PO 09/15/16 21:30 09/15/16 21:31 DC 09/15/16 21:43 250 MG Metronidazole (Flagyl Tab) 250 mg NOW ONCE PO 09/15/16 21:30 09/15/16 21:31 DC 09/15/16 21:30 250 MG ED Course 1741: Past medical records reviewed. The patient was evaluated in room A9B, and a complete history and physical examination were performed. 1755: Ordered NSS 1000 ml @ 999 mls/hr IV. 1854: I reevaluated the patient and she is resting comfortably. 2119: I discussed the patient with Dr. Sammy Todd Ena colon and rectal surgery - he recommends to start the patient on low dose Flagyl if she can tolerate it and he will see the patient in follow-up on Wednesday. 2129: Ordered Flagyl Tab 250 mg PO. 2130: Upon reevaluation, the patient is resting comfortably. I discussed the results and treatment plan with her. She verbalized agreement of the treatment plan. The patient was discharged home. Medical Decision Differentials include, but are not limited to; infection, obstruction, post-op pain, electrolyte or metabolic abnormality. This patient comes in as described above. She was placed in room A9. She is status post abdominal surgery in [place]. She has a history of chronic diverticulitis that was recurrent. She had a colostomy performed and subsequently had a wound VAC placed as well she's been home for about 4 days today. She had some lower abdominal pain and thought she may have a fever . She apparently has a low-grade temperature up to 100.3. She looks well on exam . She has minimal tenderness and she's had no peritonitis. The ostomy looks intact and there is some minimal yellowish discoloration in the wound but no pus drainage. It appears to more serous sanguinous. She has a normal output and has had no vomiting or fever. The wound VAC is in place. She has a PICC line in her left arm . She is afebrile here and normotensive. She's had no white count. Her lactic acid within normal limits . She has normal electrolytes. She's had no acute electrolyte or metabolic abnormalities. She was hydrated with IV normal saline . She remained stable. I did a CAT scan and there is no acute findings is postsurgical changes and no abscess or infection or hematoma seen. I did discuss this at length with the [place] colorectal surgeon, Dr. Christianson, who recommended restarting the patient on Flagyl 250 mg 3 times a day for 10 days. The first dose was given here as well as a dose for the morning on prescription. They're going to follow-up with her on the phone tomorrow. She's feels well and desires to go home and I think this is reasonable with close follow-up. She was encouraged to return to ER if : increasing pain, fever or chills, redness or pus drainage, any new problems or concerns. She was happy with the plan and discharged to home. Medication Reconcilliation Current Medication List: was personally reviewed by me Blood Pressure Screening Patient's blood pressure: Normal blood pressure Consults Time Called: 2116 Consulting Physician: Dr. Sammy Sutherland colon and rectal surgery Returned Call: [phone] I discussed the patient with Dr. Sammy Sutherland colon and rectal surgery - he recommends to start the patient on low dose Flagyl if she can tolerate it and he will see the patient in follow-up on Wednesday. Impression Primary Impression: Abdominal pain Scribe Attestation The scribe's documentation has been prepared under my direction and personally reviewed by me in its entirety. I confirm that the note above accurately reflects all work, treatment, procedures, and medical decision making performed by me. Departure Information Dispostion Home / Self-Care Prescriptions Metronidazole (FLAGYL) 250 Mg Tab 1 TAB PO TID for 10 Days, #30 TAB Prov: Oz Vann M.D. 09/15/16 Referrals Oc Sesay PA-C (PCP) Patient Instructions My [facility] Additional Instructions Rest. Drink plenty of fluids. Return if: Increasing pain, worsening of symptoms, fever or chills, any new problems or concerns. Dr. Aceves's office will follow-up with you by phone tomorrow and possibly see this week Use Flagyl 250 mg, 3 times a day for 10 daysantibiotic. Do not take with alcohol.
[2016-09-15] MEDS ORDERED: NICO21DI35 TD (18:22)
[2016-09-15] MEDS ORDERED: ACET-1175 PO (18:22)
[2016-09-15] MEDS ORDERED: OXYC1TAB3 PO (18:22)
[2016-09-15] MEDS ORDERED: PRED-301 PO (18:22)
[2016-09-15] MEDS ORDERED: PANT40TA PO (18:22)
[2016-09-15] MEDS ORDERED: CHOL2000 PO (18:22)
[2016-09-15] MEDS ORDERED: ENOX120I SQ (18:22)
[2016-09-15 19:07] LABS: BASO % 0.4 %; BASO ABS # 0.03 K/uL (0-0.2); COMPLETE YES; EOS % 0.4 %; HEMATOCRIT 40.8 % (37-47); IG% 1.3 %; LYMPH ABS # 2.14 K/uL (1.2-3.4); MEAN CELL VOLUME 93.2 fL (80-100); MEAN CORPUSCULAR HEMOGLOBIN 32.6 pg (25-34); MEAN PLATELET VOLUME 9.5 fL (7.4-10.4); MONO % 5.8 %; NEUT % 61.1 %; PLATELET COUNT 246 K/uL (130-400); RED BLOOD COUNT 4.38 M/uL (4.2-5.4)
[2016-09-15 19:20] LABS: PARTIAL THROMBOPLASTIN RATIO 1.2; PROTHROMBIN TIME (PATIENT) 10.4 SECONDS (9.0-12.0)
[2016-09-15 19:29] LABS: BUN/CREATININE RATIO 13.6 (10-20); CALCIUM 9.5 mg/dl (8.5-10.1); CREATININE 0.91 mg/dl (0.60-1.20); POTASSIUM 4.2 mmol/L (3.5-5.1)
[2016-09-15] MEDS ORDERED: OPTIRAY 320 IV PRN (19:45)
[2016-09-15 20:46] VITALS: O2SAT 97
--- NOTE | 2016-09-15 20:56 | DIAGNOSTIC IMAGING REPORT ---
ABD/PELVIS IV CONTRAST ONLY HISTORY: 61 years-old Female eval for post-op infection/abcess. Abdominal pain with history of inflammatory bowel disease. COMPARISON: CT abdomen and pelvis 08/22/2016 TECHNIQUE: Multiple axial CT images of the abdomen and pelvis were obtained following the intravenous administration of 93 mL Optiray 320. A dose lowering technique was used consistent with the principals of PAOLA. FINDINGS: Lung bases are generally clear. No pneumoperitoneum identified. Inferior cardiac chambers are unremarkable with coronary arterial calcifications seen. Gallbladder is partially contracted. The liver, spleen, pancreas and left adrenal gland are unremarkable. There is a 9 x 8 mm low attenuating circumscribed lesion of the right adrenal gland suggesting an adenoma. Kidneys, ureters, urinary bladder and uterus appear unremarkable. There is mild to moderate atherosclerotic plaquing of the abdominal aorta. No bulky retroperitoneal adenopathy is seen. There is minimal air-fluid level in seen within nondilated loops of small bowel, likely incidental. There is no bowel obstruction. The majority of the colon is decompressed. Postsurgical changes are seen in the right lower quadrant suggesting partial resection of the distal ileum with partial right hemicolectomy. The anastomosis appears intact. There is mild stranding of the lower abdomen with several loops of nondilated small bowel adjacent to the anterior abdominal wall which may reflect underlying adhesions. There is induration of the anterior abdominal wall with metallic likely suture materials present. Right lower quadrant ostomy is present with diastases of 3.0 cm. There is a small parastomal hernia of mesenteric fat. No abscess or drainable collection of the abdominal wall identified. Nodularity lower anterior abdominal wall is seen suggesting injection granulomas. Multilevel degenerative changes of the lumbar spine are noted. There is mild levoscoliosis of the lumbar spine as well. IMPRESSION: 1. Postsurgical changes of the bowel within the right lower quadrant suggest recent partial right hemicolectomy with resection of the distal ileum. No pneumoperitoneum. 2. Mild mesenteric stranding of the lower abdomen is likely physiologic postsurgical changes without intra-abdominal or abdominal wall abscess or fluid collection identified. 3. Postsurgical changes of the abdominal wall as above. 4. Right lower quadrant ostomy with small parastomal hernia. The above report was generated using voice recognition software. It may contain grammatical, syntax or spelling errors. Electronically signed by: Neil Bryan M.D. 09/15/2016 8:54 PM Dictated Date/Time: 09/15/2016 8:46 PM
[2016-09-15 21:19] VITALS: BP 109/66; PULSE 72
[2016-09-15] MEDS ORDERED: METRONIDAZOLE 250 MG TAB PO ONE ×2 (21:30)
[2016-09-15] MEDS ORDERED: METR250T PO (21:31)
[2016-09-29] MEDS ORDERED: PRD5 PO (09:14)
[2016-11-17] MEDS ORDERED: NICO14DI5 TD (12:37)
[2016-11-17] MEDS ORDERED: ZYR10 PO (12:37)
== END 2016-09-15 23:15 | disposition home or self-care (01) ==
LOC: EDBD 17:30 → C.EDA 17:31
DX: R10.30 Lower abdominal pain, unspecified (principal); K50.90 Crohn's disease, unspecified, without complications; Z86.711 Personal history of pulmonary embolism; Z93.3 Colostomy status; F17.210 Nicotine dependence, cigarettes, uncomplicated; Z79.01 Long term (current) use of anticoagulants; Z79.52 Long term (current) use of systemic steroids; Z79.899 Other long term (current) drug therapy

== ENCOUNTER 2016-09-26 11:31 | Inpatient (IN) | payer OTHER ==
[~2016-09-26] VITALS: Ht 167.6 cm; Wt 114.5 kg
[~2016-09-26 11:31] MED LIST changes: +ACET-1175 PO; -ADAL40KI INJ; -CEFE1INJ3 IV; +CHOL2000 PO; -CLC100 PO; +ENOX120I SQ; +METR250T PO; -MRLP17X PO; +NICO21DI35 TD; +OXYC1TAB3 PO; +PANT40TA PO; +PRED-301 PO; -PRT40 PO; -ULT50X PO; -VNTHFA/IN INH; -VTMD1000 PO; -[UNRECOGNIZED DRUG - CODE] IV
--- NOTE | 2016-09-26 11:58 | EMERGENCY ROOM VISIT NOTE ---
History Report prepared by Chon: Tacho Higgins Under the Supervision of: Dr. Luis Park D.O. First contact with patient: 11:50 Chief Complaint: SHORTNESS OF BREATH Stated Complaint: HEADACHE Nursing Triage Summary: Pt arrives to ER via ALS. Pt c/o shortness of breath that began this AM. Pt reports a 8/10 headache that began at approx 2 AM, took Tylenol x2 with no relief. Pt developed shortness of breath following onset of headache. Pt recently had ostomy placed for Crohns' disease, surgical site "not healing well " per pt reports of meeting with surgeon yesterday. Pt denied chest pain upon arrival to ER, upon further assessment pt reported 6/10 chest pain in the L chest. Pt also c/o nausea and hand pain/swelling. 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 At this time , the patient was experiencing bilateral hand pain and swelling with some left arm pain, which is abnormal for her. She took two Tylenol at this time and then became short of breath. She then experienced intermittent left sided chest pain that worsens when she breathes. She is also diaphoretic, nauseated, and has a headache. She denies any fevers, chills, vomiting, leg pain, or leg swelling. Two weeks ago, she received a colon resection and ostomy placement secondary to her Crohn's disease history. She also has a history of blood clots. She is taking Coumadin. Source of History: patient Onset: couple of hours ago Position: other (Respiratory system) Symptom Intensity: mild Quality: other (Shortness of breath) Timing: constant Associated Symptoms: + headache, + diaphoresis, + chest pain, + nausea, No fevers, No chills, No vomiting Review of Systems See HPI for pertinent positives & negatives. A total of 10 systems reviewed and were otherwise negative. Past Medical & Surgical Medical Problems: (1) Bowel obstruction (2) Cellulitis (3) Crohn's disease involving terminal ileum (4) Crohns disease (5) Hyponatremia (6) Partial small bowel obstruction (7) Postmenopausal bleeding (8) Pulmonary emboli (9) Rectal bleeding (10) right eye pain and decreased vision for 1 day (11) RUQ abdominal pain (12) SBO (small bowel obstruction) Family History Patient reports no known family medical history. Social History Smoking Status: Current Every Day Smoker Alcohol Use: none Drug Use: none Marital Status: Housing Status: lives with family Occupation Status: unemployed Current/Historical Medications Scheduled Atorvastatin (Lipitor), 20 MG PO DAILY Cholecalciferol (Vitamin D3), 2,000 UNITS PO QAM Cyanocobalamin (Vitamin B12), 1,000 MCG PO DAILY Loratadine (Claritin), 10 MG PO DAILY Pantoprazole (Protonix), 40 MG PO QAM Prednisone (Prednisone), 20 MG PO DAILY W/FOOD. Probiotic Product (Digestive Advantage Probi), 1 CAP PO DAILY Warfarin Sod (Jantoven), 7.5 MG PO 2XWK Warfarin Sod (Jantoven), 5 MG PO 5XWK Scheduled PRN Acetaminophen (Tylenol), 650 MG PO Q4H PRN for Pain Loperamide Hcl (Imodium A-D), 2 MG PO UD PRN for GI Upset Oxycodone Ir (Roxicodone Ir), 5 MG PO Q4H PRN for Severe Pain Trazodone Hcl (Trazodone), 50 MG PO HS PRN for Sleep Allergies Coded Allergies: No Known Allergies (Unverified , 09/15/16) Physical Exam Vital Signs Date Time Temp Pulse Resp B/P (MAP) Pulse Ox O2 Delivery O2 Flow Rate FiO2 09/26/16 15:00 87 18 128/79 97 Room Air 09/26/16 14:04 93 18 117/74 97 Room Air 09/26/16 12:30 99 18 119/76 95 Room Air 09/26/16 11:48 103 09/26/16 11:42 96 Room Air 09/26/16 11:40 37.4 105 18 139/92 96 Room Air 09/26/16 11:40 96 Room Air Physical Exam GENERAL: Patient is awake, alert, and in no acute distress. Patient is resting comfortably and showing no signs of anxiety EYES: The conjunctivae are clear. The pupils are round and reactive. EARS, NOSE, MOUTH AND THROAT: The nose is without any evidence of any deformity. Mucous membranes are moist tongue is midline NECK: The neck is nontender and supple. RESPIRATORY: Normal respiratory effort is noted there is no evidence of wheezing rhonchi or rales CARDIOVASCULAR: Regular rate and rhythm noted there no murmurs rubs or gallops normal S1 normal S2 GASTROINTESTINAL: The abdomen is soft and mildly distended. Bowel sounds are present in all quadrants. Abdomen is nontender without rigidity or guarding. There is a recent operative site noted with an ostomy on the right side of the abdomen. Post-operative wound in the lower midline with wound dressing in place. Draining is consistent with patient's report of post-operative healing course. MUSCULOSKELETAL/EXTREMITIES: There is no evidence of gross deformity full range of motion is noted in the hips and shoulders SKIN: There is no obvious evidence of any rash. There are no petechiae, pallor or cyanosis noted. No calf tenderness. NEUROLOGIC: Patient is awake alert and oriented x3. Medical Decision & Procedures ER Provider Diagnostic Interpretation: Radiology results as stated below per my review and radiologist interpretation: CHEST ONE VIEW PORTABLE CLINICAL HISTORY: Respiratory distress. Dyspnea. COMPARISON STUDY: Chest CT August 16, 2016 and chest radiograph August 22, 2016. FINDINGS: Lung volumes are normal. There is no pneumothorax or pleural effusion. No consolidation is identified and pulmonary vascularity is normal. Cardiomediastinal silhouette is normal. The appearance of the chest is unchanged. IMPRESSION: No acute cardiopulmonary findings. Electronically signed by: Teddy Burger M.D. 09/26/2016 12:34 PM Dictated Date/Time: 09/26/2016 12:32 PM Laboratory Results 09/26/16 12:05 Red Blood Count 4.64, Mean Corpuscular Volume 89.9, Mean Corpuscular Hemoglobin 33.0, Mean Corpuscular Hemoglobin Concent 36.7, Mean Platelet Volume 9.5, Neutrophils (%) (Auto) 59.3, Lymphocytes (%) (Auto) 24.0, Monocytes (%) (Auto) 12.7, Eosinophils (%) (Auto) 1.8, Basophils (%) (Auto) 0.4, Neutrophils # (Auto ) 6.07, Lymphocytes # (Auto) 2.46, Monocytes # (Auto) 1.30, Eosinophils # (Auto ) 0.18, Basophils # (Auto) 0.04 Test 09/26/16 11:35 09/26/16 12:05 09/26/16 12:15 09/26/16 15:28 Urine Color DK YELLOW Urine Appearance CLEAR (CLEAR) Urine pH 5.0 (4.5-7.5) Urine Specific [place] 1.024 (1.000-1.030) Urine Protein NEG (NEG) Urine Glucose (UA) NEG (NEG) Urine Ketones TRACE (NEG) Urine Occult Blood NEG (NEG) Urine Nitrite NEG (NEG) Urine Bilirubin NEG (NEG) Urine Urobilinogen NEG (NEG) Urine Leukocyte Esterase TRACE (NEG) Urine WBC (Auto) 1-5 /hpf (0-5) Urine RBC (Auto) 0-4 /hpf (0-4) Urine Hyaline Casts (Auto) 1-5 /lpf (0-5) Urine Epithelial Cells (Auto) >30 /lpf (0-5) Urine Bacteria (Auto) NEG (NEG) Urine Random Sodium < 5 mEq/L White Blood Count 10.23 K/uL (4.8-10.8) Red Blood Count 4.64 M/uL (4.2-5.4) Hemoglobin 15.3 g/dL (12.0-16.0) Hematocrit 41.7 % (37-47) Mean Corpuscular Volume 89.9 fL (80-100) Mean Corpuscular Hemoglobin 33.0 pg (25-34) Mean Corpuscular Hemoglobin Concent 36.7 g/dl (32-36) Platelet Count 277 K/uL (130-400) Mean Platelet Volume 9.5 fL (7.4-10.4) Neutrophils (%) (Auto) 59.3 % Lymphocytes (%) (Auto) 24.0 % Monocytes (%) (Auto) 12.7 % Eosinophils (%) (Auto) 1.8 % Basophils (%) (Auto) 0.4 % Neutrophils # (Auto) 6.07 K/uL (1.4-6.5) Lymphocytes # (Auto) 2.46 K/uL (1.2-3.4) Monocytes # (Auto) 1.30 K/uL (0.11-0.59) Eosinophils # (Auto) 0.18 K/uL (0-0.5) Basophils # (Auto) 0.04 K/uL (0-0.2) RDW Standard Deviation 44.6 fL (36.4-46.3) RDW Coefficient of Variation 13.4 % (11.5-14.5) Immature Granulocyte % (Auto) 1.8 % Immature Granulocyte # (Auto) 0.18 K/uL (0.00-0.02) Est Creatinine Clear Calc Drug Dose 53.5 ml/min Magnesium Level 1.8 mg/dl (1.8-2.4) Total Bilirubin 0.4 mg/dl (0.2-1) Aspartate Amino Transf (AST/SGOT) 21 U/L (15-37) Alanine Aminotransferase (ALT/SGPT) 29 U/L (12-78) Alkaline Phosphatase 83 U/L (45-117) Total Creatine Kinase 30 U/L (26-192) Creatine Kinase MB < 0.5 ng/ml (0.5-3.6) Creatine Kinase MB Ratio (0-3.0) Troponin I < 0.015 ng/ml (0-0.045) Pro-B-Type Natriuretic Peptide 118 pg/ml (0-900) Total Protein 7.2 gm/dl (6.4-8.2) Albumin 3.0 gm/dl (3.4-5.0) Globulin 4.2 gm/dl (2.5-4.0) Albumin/Globulin Ratio 0.7 (0.9-2) Bedside D-Dimer 394 ng/mlFEU (0-450) Prothrombin Time 31.6 SECONDS (9.0-12.0) Prothromb Time International Ratio 2.8 (0.9-1.1) Activated Partial Thromboplast Time 50.3 SECONDS (21.0-31.0) Partial Thromboplastin Ratio 1.9 Laboratory results per my review. Medications Administered Medications (Trade) Dose Ordered Sig/Rachael Route Start Time Stop Time Status Last Admin Dose Admin Sodium Chloride 1,000 ml @ 999 mls/hr Q1H1M STAT IV 09/26/16 12:00 09/26/16 13:00 DC 09/26/16 12:44 999 MLS/HR Oxycodone HCl (Roxicodone Immediate Rel Tab) 5 mg NOW STAT PO 09/26/16 13:15 09/26/16 13:16 DC 09/26/16 13:25 5 MG Sodium Chloride 1,000 ml @ 999 mls/hr Q1H1M STAT IV 09/26/16 13:56 09/26/16 14:56 DC 09/26/16 14:41 999 MLS/HR ECG Indication: chest pain, SOB/dyspnea Rate (beats per minute): 100 Rhythm: normal sinus Findings: no ectopy, other (No acute STS) Comparison ECG Date: 23 August 2016 Change: no significant change ED Course 1150: The patient was evaluated in room C10. A complete history and physical examination were performed. 1200: Ordered NSS 1,000 ml @ 999 mls/hr IV 1315: Ordered Oxycodone HCl 5 mg PO 1356: Ordered NSS 1,000 ml @ 999 mls/hr IV 1425: Upon reevaluation, the patient is resting. I discussed results and treatment plan with her. She verbalizes agreement and understanding. I spoke with Dr. Fowler of the [facility]. The patient will be evaluated by him for further management and care. Medical Decision Differential diagnosis: Etiologies such as cardiac ischemia, aortic dissection, pulmonary embolism, pneumonia, pneumothorax, musculoskeletal, infections, pericarditis, myocarditis , esophageal rupture, gastrointestinal, as well as others were entertained. Nursing notes reviewed. The patient is a 61-year-old female who presented to the emergency department for evaluation of chest pain muscle cramps and generalized malaise. The patient was found have hyponatremia as well as an elevated creatinine. The patient recently had surgery for Crohn's disease and had an ileostomy placed. I discussed the patient's laboratory and radiographic studies with her. She was treated with IV fluids in the emergency department. I discussed her case with the on-call [facility] hospitalist. They've agreed to evaluate the patient in emergency department for further management and disposition. Medication Reconcilliation Current Medication List: was personally reviewed by me Blood Pressure Screening Patient's blood pressure: Normal blood pressure Blood pressure disposition: Did not require urgent referral Consults Time Called: 1420 Consulting Physician: Dr. Fowler - [facility] Returned Call: [phone] I discussed the patient's case with him. The patient will be evaluated for further management. Impression Primary Impression: Hyponatremia Additional Impressions: JULIETTE (acute kidney injury) Dehydration Left sided chest pain Scribe Attestation The scribe's documentation has been prepared under my direction and personally reviewed by me in its entirety. I confirm that the note above accurately reflects all work, treatment, procedures, and medical decision making performed by me. Departure Information Dispostion Being Evaluated By Hospitalist Referrals Oc Sesay PA-C (PCP) Patient Instructions My [facility] Problem Qualifiers
[2016-09-26] MEDS ORDERED: SODIUM CHLORIDE 0.9% 1000ML 1,000 ML IV STA ×2 (12:00→13:56)
[2016-09-26 12:14] LABS: URINE APPEARANCE CLEAR (CLEAR); URINE BILIRUBIN NEG (NEG); URINE COLOR DK YELLOW; URINE EPITHELIAL CELL AUTO >30 /lpf (0-5); URINE NITRITE NEG (NEG); URINE SPECIFIC GRAVITY 1.024 (1.000-1.030); UROBILINOGEN NEG (NEG)
[2016-09-26 12:19] LABS: MANUAL MICROSCOPIC REQUIRED? NO; REVIEW REQ? NO
--- NOTE | 2016-09-26 12:35 | DIAGNOSTIC IMAGING REPORT ---
CHEST ONE VIEW PORTABLE CLINICAL HISTORY: Respiratory distress. Dyspnea. COMPARISON STUDY: Chest CT August 16, 2016 and chest radiograph August 22, 2016. FINDINGS: Lung volumes are normal. There is no pneumothorax or pleural effusion. No consolidation is identified and pulmonary vascularity is normal. Cardiomediastinal silhouette is normal. The appearance of the chest is unchanged. IMPRESSION: No acute cardiopulmonary findings. Electronically signed by: Teddy Burger M.D. 09/26/2016 12:34 PM Dictated Date/Time: 09/26/2016 12:32 PM
[2016-09-26 12:45] LABS: BASO % 0.4 %; BASO ABS # 0.04 K/uL (0-0.2); COMPLETE YES; EOS % 1.8 %; HEMATOCRIT 41.7 % (37-47); IG% 1.8 %; LYMPH ABS # 2.46 K/uL (1.2-3.4); MEAN CELL VOLUME 89.9 fL (80-100); MEAN CORPUSCULAR HGB CONC 36.7 g/dl (32-36); MEAN PLATELET VOLUME 9.5 fL (7.4-10.4); MONO % 12.7 %; NEUT % 59.3 %; PLATELET COUNT 277 K/uL (130-400); RED BLOOD COUNT 4.64 M/uL (4.2-5.4); WHITE BLOOD COUNT 10.23 K/uL (4.8-10.8)
[2016-09-26 13:00] LABS: ALT/SGPT 29 U/L (12-78); BLOOD UREA NITROGEN 24 mg/dl (7-18); BUN/CREATININE RATIO 17.4 (10-20); CALCIUM 10.1 mg/dl (8.5-10.1); CARBON DIOXIDE 24 mmol/L (21-32); CHLORIDE 95 mmol/L (98-107); GLUCOSE 108 mg/dl (70-99); POTASSIUM 4.1 mmol/L (3.5-5.1); SODIUM 127 mmol/L (136-145)
[2016-09-26 13:07] LABS: ALB/GLOB RATIO 0.7 (0.9-2); ALKALINE PHOSPHATASE 83 U/L (45-117); AST/SGOT 21 U/L (15-37)
[2016-09-26] MEDS ORDERED: OXYCODONE HCL IR 5 MG TAB (IMMEDIATE RELEASE) PO STA (13:15)
[2016-09-26] MEDS ORDERED: WARF7.5T4 PO (14:03)
[2016-09-26] MEDS ORDERED: WARF5TAB7 PO (14:03)
[2016-09-26] MEDS ORDERED: LOPE-5 PO (14:06)
[2016-09-26 15:52] LABS: INR 2.8 (0.9-1.1); PARTIAL THROMBOPLASTIN RATIO 1.9; PROTHROMBIN TIME (PATIENT) 31.6 SECONDS (9.0-12.0)
[2016-09-26] MEDS ORDERED: LORAZEPAM 0.5 MG TAB PO PRN (16:00)
[2016-09-26] MEDS ORDERED: TRAZODONE HCL 50 MG TAB PO PRN (16:00)
[2016-09-26] MEDS ORDERED: LORAZEPAM 2 MG/ML 1 ML VIAL IV PRN ×2 (16:00)
[2016-09-26] MEDS ORDERED: ACETAMINOPHEN 325 MG TAB PO PRN (16:00)
[2016-09-26] MEDS ORDERED: SODIUM CHLORIDE 0.9% 1000ML 1,000 ML IV SCH (16:00)
[2016-09-26] MEDS ORDERED: OXYCODONE HCL IR 5 MG TAB (IMMEDIATE RELEASE) PO PRN (16:00)
--- NOTE | 2016-09-26 16:13 | History and Physical ---
History & Physical Date & Time of Service: Sep 26, 2016 at 16:05 Chief Complaint: Headache Primary Care Physician: Oc Sesay PA-C History of Present Illness This patient presents with a variety of somatic complaints initially revolving around feeling short of breath and chest discomfort. Patient has a history of PE however her d-dimer was negative initial EKG and troponins were also negative for symptoms it's somewhat resolved however she developed a mild headache. Patient was found to be hyponatremic in the ER she has recently had a ileostomy. She however has not had voluminous ileostomy output nor she drinking a significant amount of free water according to her ex She followed up with her surgeon yesterday who took her wound VAC off her abdominal wound and packed it. The abdominal wound is draining a yellow foul- smelling liquid and however is intact when probed otherwise she's complaining some hand and leg crampiness. Past Medical/Surgical History Medical Problems: (1) Cellulitis Status: Resolved (2) Crohn's disease involving terminal ileum Status: Chronic (3) Crohns disease Status: Chronic (4) Pulmonary emboli Status: Resolved (5) SBO (small bowel obstruction) Status: Resolved GERD dyslipidemia previous tubal ligation Family History Patient reports no known family medical history. Social History Smoking Status: Current Every Day Smoker Drug Use: none Marital Status: Housing status: lives alone Occupational Status: unemployed Multi-Drug Resistant Organisms History of MDRO: No Allergies Coded Allergies: No Known Allergies (Unverified , 09/15/16) Home Medications Scheduled Atorvastatin (Lipitor), 20 MG PO DAILY Cholecalciferol (Vitamin D3), 2,000 UNITS PO QAM Cyanocobalamin (Vitamin B12), 1,000 MCG PO DAILY Loratadine (Claritin), 10 MG PO DAILY Pantoprazole (Protonix), 40 MG PO QAM Prednisone (Prednisone), 20 MG PO DAILY W/FOOD. Probiotic Product (Digestive Advantage Probi), 1 CAP PO DAILY Warfarin Sod (Jantoven), 7.5 MG PO 2XWK Warfarin Sod (Jantoven), 5 MG PO 5XWK Scheduled PRN Acetaminophen (Tylenol), 650 MG PO Q4H PRN for Pain Loperamide Hcl (Imodium A-D), 2 MG PO UD PRN for GI Upset Oxycodone Ir (Roxicodone Ir), 5 MG PO Q4H PRN for Severe Pain Trazodone Hcl (Trazodone), 50 MG PO HS PRN for Sleep Review of Systems ROS: well nourished well developed No double vision blurry vision No problems with speech or swallowing No palpitations, chest pain or pressure, she had vague discomfort in her chest which resolved No Wheezing but this and she felt like she could not catch her breath No abdominal pain nausea vomiting her ileostomy output is about average for her over the last 2 weeks No burning urine urine frequency or changes in color No focal joint pain or muscle pain Large open dehisced surgical wound on her abdomen intact fascia when probed yellow liquidy discharge and some erythema No unusual bruising or bleeding No focused back pain or numbness or loss of strength has restless legs and cramping to her hands No changes in memory or confusion Physical Exam Vital Signs Date Time Temp Pulse Resp B/P (MAP) Pulse Ox O2 Delivery O2 Flow Rate FiO2 09/26/16 15:00 87 18 128/79 97 Room Air 09/26/16 14:04 93 18 117/74 97 Room Air 09/26/16 12:30 99 18 119/76 95 Room Air 09/26/16 11:48 103 09/26/16 11:42 96 Room Air 09/26/16 11:40 37.4 105 18 139/92 96 Room Air 09/26/16 11:40 96 Room Air General Appearance: WD/WN, + mild distress Head: normocephalic, atraumatic Eyes: PERRL, EOMI Neck: supple, no JVD Respiratory/Chest: chest non-tender, lungs clear, normal breath sounds Cardiovascular: regular rate, rhythm, no murmur Abdomen/GI: normal bowel sounds, soft, + pertinent finding (large abdominal wound approximately 18 cm x 5 cm by a 3-4 cm deep with an intact fascial plane yellow liquidy discharge with some foul smell) Back: no CVA tenderness, no muscle spasm Extremities/Musculoskelatal: no pedal edema, normal range of motion Neurologic/Psych: alert, oriented x 3 Skin: + pertinent finding (C abdominal exam) Diagnostics Laboratory Results Results Past 24 Hours Test 09/26/16 11:35 09/26/16 12:05 09/26/16 12:15 09/26/16 15:28 Range/Units Urine Color DK YELLOW Urine Appearance CLEAR CLEAR Urine pH 5.0 4.5-7.5 Urine Specific [place] 1.024 1.000-1.030 Urine Protein NEG NEG Urine Glucose (UA) NEG NEG Urine Ketones TRACE NEG Urine Occult Blood NEG NEG Urine Nitrite NEG NEG Urine Bilirubin NEG NEG Urine Urobilinogen NEG NEG Urine Leukocyte Esterase TRACE NEG Urine WBC (Auto) 1-5 0-5 /hpf Urine RBC (Auto) 0-4 0-4 /hpf Urine Hyaline Casts (Auto) 1-5 0-5 /lpf Urine Epithelial Cells (Auto) >30 0-5 /lpf Urine Bacteria (Auto) NEG NEG Urine Random Sodium < 5 mEq/L White Blood Count 10.23 4.8-10.8 K/uL Red Blood Count 4.64 4.2-5.4 M/uL Hemoglobin 15.3 12.0-16.0 g/dL Hematocrit 41.7 37-47 % Mean Corpuscular Volume 89.9 80-100 fL Mean Corpuscular Hemoglobin 33.0 25-34 pg Mean Corpuscular Hemoglobin Concent 36.7 32-36 g/dl Platelet Count 277 130-400 K/uL Mean Platelet Volume 9.5 7.4-10.4 fL Neutrophils (%) (Auto) 59.3 % Lymphocytes (%) (Auto) 24.0 % Monocytes (%) (Auto) 12.7 % Eosinophils (%) (Auto) 1.8 % Basophils (%) (Auto) 0.4 % Neutrophils # (Auto) 6.07 1.4-6.5 K/uL Lymphocytes # (Auto) 2.46 1.2-3.4 K/uL Monocytes # (Auto) 1.30 0.11-0.59 K/uL Eosinophils # (Auto) 0.18 0-0.5 K/uL Basophils # (Auto) 0.04 0-0.2 K/uL RDW Standard Deviation 44.6 36.4-46.3 fL RDW Coefficient of Variation 13.4 11.5-14.5 % Immature Granulocyte % (Auto) 1.8 % Immature Granulocyte # (Auto) 0.18 0.00-0.02 K/uL Sodium Level 127 136-145 mmol/L Potassium Level 4.1 3.5-5.1 mmol/L Chloride Level 95 98-107 mmol/L Carbon Dioxide Level 24 21-32 mmol/L Anion Gap 8.0 3-11 mmol/L Blood Urea Nitrogen 24 7-18 mg/dl Creatinine 1.40 0.60-1.20 mg/dl Est Creatinine Clear Calc Drug Dose 53.5 ml/min Estimated GFR () 46.6 Estimated GFR (Non- 40.2 BUN/Creatinine Ratio 17.4 10-20 Random Glucose 108 70-99 mg/dl Calcium Level 10.1 8.5-10.1 mg/dl Magnesium Level 1.8 1.8-2.4 mg/dl Total Bilirubin 0.4 0.2-1 mg/dl Aspartate Amino Transf (AST/SGOT) 21 15-37 U/L Alanine Aminotransferase (ALT/SGPT) 29 12-78 U/L Alkaline Phosphatase 83 45-117 U/L Total Creatine Kinase 30 26-192 U/L Creatine Kinase MB < 0.5 0.5-3.6 ng/ml Creatine Kinase MB Ratio 0-3.0 Troponin I < 0.015 0-0.045 ng/ml Pro-B-Type Natriuretic Peptide 118 0-900 pg/ml Total Protein 7.2 6.4-8.2 gm/dl Albumin 3.0 3.4-5.0 gm/dl Globulin 4.2 2.5-4.0 gm/dl Albumin/Globulin Ratio 0.7 0.9-2 Bedside D-Dimer 394 0-450 ng/mlFEU Test 09/26/16 15:36 Range/Units Diagnostic Radiology Pertinent laboratory shows sodium 127 minor elevation of her creatinine 1.4 troponin negative urine sodium less than 5 CXR normal Normal EKG Impression Assessment and Plan 59-year-old female here with recent ileostomy for Crohn's disease who has hyponatremia and various somatic complaints but a poorly healing dehisced abdominal wound For hyponatremia we'll fluid restrict her she however does not have elevation of random urine sodium which goes against this being SIADH will follow this lab since she does have acute kidney injury will hydrate her with normal saline and follow her kidney injury and sodium a serum has an is pending for the morning With regard to her dizziness the abdominal wound this was repacked in the ER with the foul-smelling nature we will culture this and institute Zosyn therapy was vancomycin since she has recently been hospitalized. Patient states she thinks she was on Flagyl 3 times a day for this I asked her if she had C. difficile and she said she doesn't think so. Regarding her Crohn's disease she is currently off Humira and complaining of the last week of 5 mg for prednisone we'll continue this but look for signs of addisonian crisis and use hydrocortisone if needed History of thrombophilia the patient will be maintained on her warfarin 7.5 on Tuesdays and 5 mg every other day this will also serve as DVT prevention We'll nursing will help both with her ostomy and her abdominal wound VTE Prophylaxis VTE Risk Assessment Done? Y/N: Yes Risk Level: Moderate Given or contraindicated: Warfarin (Coumadin)
[2016-09-26] MEDS ORDERED: ONDANSETRON INJ 2 MG/ML 2 ML VIAL IV PRN (16:15)
[2016-09-26] MEDS ORDERED: MAGNESIUM HYDROXIDE SUSP 30 ML UDC PO PRN (16:15)
[2016-09-26 16:20] VITALS: O2SAT 98; Ht 167.6 cm; Wt 114.5 kg
[2016-09-26 16:42] VITALS: O2SAT 98
[2016-09-26] MEDS: SODIUM CHLORIDE 0.9% 1000ML 1,000 ML IV SCH (17:07)
[2016-09-26 17:56] VITALS: BP 112/72; PULSE 101; TEMP 36.6; O2SAT 98
[2016-09-26] MEDS ORDERED: LORAZEPAM INJ 1 MG in SYRINGE 0.5 ML IV PRN (18:45)
[2016-09-26] MEDS ORDERED: LORAZEPAM INJ 0.5 MG in SYRINGE 0.75 ML IV PRN (18:45)
[2016-09-26 18:57] LABS: BUN/CREATININE RATIO 17.5 (10-20); CALCIUM 9.1 mg/dl (8.5-10.1); CREATININE 1.1 mg/dl (0.60-1.20); POTASSIUM 4.4 mmol/L (3.5-5.1)
[2016-09-26] MEDS ORDERED: MAGNESIUM SULFATE 1GM / D5W 1 GM in PREMIXED IN D5W 100 ML IV ONE (19:00)
[2016-09-26] MEDS: WARFARIN SOD 5 MG TAB PO SCH (19:10)
[2016-09-26] MEDS: ACETAMINOPHEN 325 MG TAB PO PRN ×2 (19:11→23:46)
[2016-09-26] MEDS ORDERED: VANCOMYCIN CONSULT ACTIVE PRN (19:45)
[2016-09-26] MEDS ORDERED: PIPERACILL/TAZOBAC CONSULT ACTIVE PRN (20:00)
[2016-09-26] MEDS ORDERED: PIPERACILL/TAZOBAC IV 4.5 GM in DEXTROSE 5% 100ML IV ONE (20:00)
[2016-09-26] MEDS ORDERED: VANCOMYCIN INJ 2,500 MG in SODIUM CHLORIDE 0.9% 500ML 500 ML IV SCH (20:00)
[2016-09-26] MEDS: LOPERAMIDE HCL 2 MG CAP PO PRN (20:39)
--- NOTE | 2016-09-26 22:22 | Pharmacy Progress Note ---
Pharmacy Abx Initial Consult Date of Service Sep 26, 2016. Pharmacy Dosing Scope Date of Consult: 09/26/16 Consultation requested by: Dr. Fowler Pharmacy is consulted to initiate Vancomycin IV dosing therapy, order appropriate labs and adjust drug dose/frequency. Subjective The patient is a 61 year old female admitted on Sep 26, 2016 at 16:04. Objective Height (Feet): 5 Height (Inches): 6.00 Weight (Kilograms): 114.500 Vital Signs (Past 12Hrs) Vital Signs Past 12 Hours Date Time Temp Pulse Resp B/P (MAP) Pulse Ox O2 Delivery O2 Flow Rate FiO2 09/26/16 19:46 Room Air 09/26/16 17:56 36.6 101 18 112/72 (85) 98 Room Air 09/26/16 16:42 81 14 110/64 98 09/26/16 16:20 98 Room Air 09/26/16 15:00 87 18 128/79 97 Room Air 09/26/16 14:04 93 18 117/74 97 Room Air 09/26/16 12:30 99 18 119/76 95 Room Air 09/26/16 11:48 103 09/26/16 11:42 96 Room Air 09/26/16 11:40 37.4 105 18 139/92 96 Room Air 09/26/16 11:40 96 Room Air Lab Results (24Hrs) Laboratory Tests (24 Hours) Test 09/26/16 12:05 White Blood Count 10.23 K/uL (4.8-10.8) Red Blood Count 4.64 M/uL (4.2-5.4) Hemoglobin 15.3 g/dL (12.0-16.0) Hematocrit 41.7 % (37-47) Mean Corpuscular Volume 89.9 fL (80-100) Mean Corpuscular Hemoglobin 33.0 pg (25-34) Mean Corpuscular Hemoglobin Concent 36.7 g/dl (32-36) H Platelet Count 277 K/uL (130-400) Mean Platelet Volume 9.5 fL (7.4-10.4) Neutrophils (%) (Auto) 59.3 % Lymphocytes (%) (Auto) 24.0 % Monocytes (%) (Auto) 12.7 % Eosinophils (%) (Auto) 1.8 % Basophils (%) (Auto) 0.4 % Neutrophils # (Auto) 6.07 K/uL (1.4-6.5) Lymphocytes # (Auto) 2.46 K/uL (1.2-3.4) Monocytes # (Auto) 1.30 K/uL (0.11-0.59) H Eosinophils # (Auto) 0.18 K/uL (0-0.5) Basophils # (Auto) 0.04 K/uL (0-0.2) Total Creatine Kinase 30 U/L (26-192) Assessment & Plan Assessment 61 year old female with abdominal wound. Plan Vancomycin for treatment of wound infection. Vancomycin IV * Loading dose: 2500 mg (21.8mg/kg) * Maintenance dose: 1750 mg IV (15 mg/kg) every 14 hours * Goal trough level for abdominal wound: ~15 mcg/mL * Trough ordered for 09/28/16 before dose at 1200. Pharmacy will continue to follow and will adjust dose/frequency as necessary. Thank you.
[2016-09-27 00:18] VITALS: BP 109/72; PULSE 70; TEMP 36.8; O2SAT 97
[2016-09-27] MEDS: PIPERACILL/TAZOBAC IV 4.5 GM in DEXTROSE 5% 100ML 100 ML IV SCH ×3 (02:31→18:20)
[2016-09-27] MEDS: SODIUM CHLORIDE 0.9% 1000ML 1,000 ML IV SCH (02:31)
[2016-09-27] MEDS: LOPERAMIDE HCL 2 MG CAP PO PRN (02:39)
[2016-09-27] MEDS: ACETAMINOPHEN 325 MG TAB PO PRN ×3 (06:33→22:06)
[2016-09-27 07:08] VITALS: BP 121/70; PULSE 75; TEMP 36.4; O2SAT 98
[2016-09-27 07:24] LABS: HEMATOCRIT 39.3 % (37-47); MEAN CELL VOLUME 91.2 fL (80-100); MEAN CORPUSCULAR HEMOGLOBIN 32.9 pg (25-34); MEAN CORPUSCULAR HGB CONC 36.1 g/dl (32-36); MEAN PLATELET VOLUME 8.8 fL (7.4-10.4); PLATELET COUNT 243 K/uL (130-400); RED BLOOD COUNT 4.31 M/uL (4.2-5.4); WHITE BLOOD COUNT 8.53 K/uL (4.8-10.8)
[2016-09-27 07:34] LABS: PROTHROMBIN TIME (PATIENT) 34.1 SECONDS (9.0-12.0)
[2016-09-27] MEDS: ATORVASTATIN 20 MG TAB PO SCH (07:53)
[2016-09-27] MEDS: VANCOMYCIN INJ 1,750 MG in SODIUM CHLORIDE 0.9% 500ML 500 ML IV SCH ×2 (07:53→21:59)
[2016-09-27] MEDS: LACTOBACILLUS ACIDOPHILUS (FLORANEX) TAB PO SCH (07:53)
[2016-09-27] MEDS: LORATADINE 10 MG TAB PO SCH (07:53)
[2016-09-27] MEDS: PANTOprazole SOD 40 MG TAB PO SCH (07:54)
[2016-09-27] MEDS: CYANOCOBALAMIN 500 MCG TAB (VIT B-12) PO SCH (07:54)
[2016-09-27] MEDS: CHOLECALCIFEROL 1000 INTER.UNIT TAB PO SCH (07:54)
[2016-09-27] MEDS ORDERED: NURSING VERBAL MED ORDER ONE ×2 (11:30)
[2016-09-27] MEDS: NICOTINE 14 MG/24 HR TDSY TD SCH (12:04)
[2016-09-27] MEDS: KETOROLAC TROMETHAMINE 30 MG/ML VIAL IV. PRN (12:07)
--- NOTE | 2016-09-27 13:00 | Progress Note ---
Subjective Date of Service: Sep 27, 2016. Subjective Pt evaluation today including: conversation w/ patient, conversation w/ family , physical exam, chart review, lab review, review of studies, review of inpatient medication list Report mild headache, some right upper abdominal pain, complaining of middle abdomen wound is draining Problem List Medical Problems: (1) Abdominal pain Status: Acute (2) JULIETTE (acute kidney injury) Status: Acute (3) Dehydration Status: Acute (4) Diarrhea Status: Acute (5) Epistaxis Status: Acute (6) Fever Status: Acute (7) Fistula of intestine, excluding rectum and anus Status: Acute (8) Headache Status: Acute (9) Hyponatremia Status: Acute (10) Ileus Status: Acute (11) Inflammatory bowel disease Status: Acute (12) Left sided chest pain Status: Acute (13) Multiple pulmonary emboli Status: Acute (14) Optic neuritis Status: Acute (15) Partial small bowel obstruction Status: Acute (16) Rectal bleed Status: Acute (17) RLQ abdominal pain Status: Acute (18) RLQ abdominal pain Status: Acute (19) Small bowel obstruction Status: Acute (20) Small bowel obstruction Status: Acute (21) Substernal chest pain Status: Acute (22) Subtherapeutic international normalized ratio (INR) Status: Acute (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 (24) Visual disturbance Status: Acute Review of Systems Constitutional: + fatigue, No fever, No chills, No sweats, No weight loss, No weakness, No problem reported Eyes: No worsening of vision, No eye pain, No redness, No discharge, No diplopia ENT: No hearing loss, No unusual epistaxis, No nasal symptoms, No sore throat, No tinnitus, No dental problems, No trouble swallowing Respiratory: No cough, No sputum, No wheezing, No shortness of breath, No dyspnea on exertion, No dyspnea at rest, No hemoptysis Cardiac: No chest pain, No orthopnea, No PND, No edema, No claudication, No palpitations Abdomen: + pain (from the abdominal wall wound), + problem reported (colostomy bag has good production), No nausea, No vomiting, No diarrhea, No constipation Musculoskeletal: No joint pain, No muscle pain, No swelling, No calf pain Female : No dysuria, No urinary frequency, No hematuria, No incontinence, No abnormal vaginal bleeding, No vaginal discharge Neurologic: No memory loss, No paralysis, No weakness, No numbness/tingling, No vertigo, No balance problems Psychiatric: No depression symptoms, No anhedonism, No anxiety, No insomnia, No substance abuse Heme: No abnormal bleeding/bruising, No clotting problems, No swollen lymph nodes, No night sweats Endo: No fatigue, No excessive thirst, No excessive urination Skin: + problem reported (see above), No rash, No itch, No new/changing skin lesions, No color change, No bleeding Objective Vital Signs Date Time Temp Pulse Resp B/P (MAP) Pulse Ox O2 Delivery O2 Flow Rate FiO2 09/27/16 08:00 Room Air 09/27/16 07:08 36.4 75 18 121/70 (87) 98 Room Air 09/27/16 00:18 36.8 70 18 109/72 (84) 97 Room Air 09/26/16 23:39 Room Air 09/26/16 19:46 Room Air 09/26/16 17:56 36.6 101 18 112/72 (85) 98 Room Air 09/26/16 16:42 81 14 110/64 98 09/26/16 16:20 98 Room Air 09/26/16 15:00 87 18 128/79 97 Room Air 09/26/16 14:04 93 18 117/74 97 Room Air Physical Exam General Appearance: WD/WN, no apparent distress, + obese Eyes: normal inspection, PERRL, EOMI, sclerae normal ENT: normal ENT inspection, hearing grossly normal, pharynx normal Neck: supple, no adenopathy, thyroid normal, no JVD, no carotid bruits, trachea midline Respiratory/Chest: chest non-tender, lungs clear, normal breath sounds, no respiratory distress, no accessory muscle use Cardiovascular: regular rate, rhythm, no edema, no gallop, no JVD, no murmur Abdomen: soft, no organomegaly, no pulsatile mass, + pertinent finding (right upper quadrant is soft and nontender, right abdomen has a colostomy bag in place with good stool production, mid abdomen nonhealing wounds with yellow drainages and gauge packed) Extremities: normal range of motion, non-tender, normal inspection, no pedal edema, no calf tenderness, normal capillary refill, pelvis stable Neurologic/Psychiatric: alterations expert II-XII nml as tested, no motor/sensory deficits, alert, normal mood/affect, oriented x 3, + abnormal cerebellar tests Skin: normal color, warm/dry, no rash Lymphatic: no adenopathy Laboratory Results Last 24 Hours Test 09/26/16 15:28 09/26/16 17:59 09/27/16 07:07 Prothrombin Time 31.6 SECONDS 34.1 SECONDS Prothromb Time International Ratio 2.8 3.0 Activated Partial Thromboplast Time 50.3 SECONDS Partial Thromboplastin Ratio 1.9 Sodium Level 130 mmol/L Potassium Level 4.4 mmol/L Chloride Level 99 mmol/L Carbon Dioxide Level 24 mmol/L Anion Gap 7.0 mmol/L Blood Urea Nitrogen 19 mg/dl Creatinine 1.10 mg/dl Est Creatinine Clear Calc Drug Dose 68.1 ml/min Estimated GFR () 62.3 Estimated GFR (Non- 53.8 BUN/Creatinine Ratio 17.5 Random Glucose 100 mg/dl Calcium Level 9.1 mg/dl White Blood Count 8.53 K/uL Red Blood Count 4.31 M/uL Hemoglobin 14.2 g/dL Hematocrit 39.3 % Mean Corpuscular Volume 91.2 fL Mean Corpuscular Hemoglobin 32.9 pg Mean Corpuscular Hemoglobin Concent 36.1 g/dl RDW Standard Deviation 46.2 fL RDW Coefficient of Variation 13.6 % Platelet Count 243 K/uL Mean Platelet Volume 8.8 fL Osmolality 272 mOsm/kg Magnesium Level 1.9 mg/dl Assessment and Plan 59-year-old female admitted on 09/26/2016 with complaint of with recent ileostomy for Crohn's disease who has hyponatremia , poorly healing dehisced abdominal wound hyponatremia Continue fluid restrict h does not have elevation of random urine sodium which goes against this being SIADH Upon admission, because she does have acute kidney injury was treated with normal saline , sodium from 127 up to 1:30 today Acute kidney injury with creatinine 1.4, today totally resolved Was dizziness : Resolved Abdominal nonhealing wounds with Recent abdominal surgery because of bowel obstruction in August She was seen surgeon the day before who took her wound VAC off her abdominal wound Surgery was done by [facility] surgeon who has always in [place], he come to the [place] 2 time a week this was repacked in the ER cont Zosyn therapy was vancomycin since she has recently been hospitalized. , Has request a wound care consult, Patient states she thinks she was on Flagyl 3 times a day for this but when asked her if she had C. difficile and she said she doesn't think so. Regarding her Crohn's disease she is currently off Humira and is on 5 mg for prednisone continue History of thrombophilia: maintained on her warfarin 7.5 on Tuesdays and 5 mg every other day this will also serve as DVT prevention, Today's INR is 3.0 's consult wound care for abdominal wound and ostomy back Has request surgeon consult to look into another abdominal nonhealing wound after the surgery Patient had surgery done in [facility] GI prophylaxis is ordered DVT prophylaxis is on Coumadin Continued [facility] stay due to: multiple IV medications needed Discharge planning: home
--- NOTE | 2016-09-27 13:08 | SURGICAL CONSULTATION ---
DATE OF ADMISSION: 09/26/[address] Barnard for abdominal wound and ileostomy. HISTORY OF PRESENT ILLNESS: The patient is a 61-year-old female admitted through the Emergency Room with just feeling poorly, shortness of breath, some chest discomfort, dizziness and purulent wound drainage. She has had significant recent history of being operated on in [place] on 09/03 with apparent colectomy and temporary ileostomy and then apparently developed some bleeding and had an emergency operation on 09/07 which required wound VAC. The wound VAC has been taken care of by the visiting nurses, but is not adequate and then Dr. Yeh, the patient's colorectal surgeon discontinued the wound VAC 2 days ago and began packing the wound with saline gauze. Admitting doctors noticed some purulent drainage from the wound. It also appears that patient has had relatively high output from her ileostomy and has been on Imodium tablets of 2 mg b.i.d. The patient is also on Coumadin for apparent thrombophilia, but also has a history of DVT. She was admitted hyponatremic. Her other history includes Crohn disease, pulmonary emboli, small bowel obstruction. SOCIAL AND FAMILY HISTORY: Noncontributory. ALLERGIES: She has no known allergies. MEDICATIONS: She is on multiple medications including atorvastatin, Protonix, prednisone, warfarin. REVIEW OF SYSTEMS: Please see HPI. Ten other systems reviewed and negative. OBJECTIVE: GENERAL APPEARANCE: She is sitting in her chair. She is awake and alert. She is in no distress. HEAD: Atraumatic. EYES: Without scleral icterus. NECK: Supple. LUNGS: Clear. HEART: Regular rate and rhythm. ABDOMEN: Soft. She has a viable ileostomy with watery output in the bag. She has an open abdominal wound with some purulence in the deep base. EXTREMITIES: Without significant edema. SKIN: Shows no rashes. ASSESSMENT AND PLAN: A 61-year-old female with recent colon surgery for history of Crohn disease with temporary ileostomy with high output and also open abdominal wound which we are packing. We will begin her on Imodium liquid 4 mg b.i.d. We will also obtain some Dakin's Solution and use that for packing as it will help control any bacterial growth in the depth of the wound. The patient would benefit from a wound VAC, but she is not able to go to the wound clinic and the visiting nurses appear not to be able to take care of the wound VAC. She does not need surgical intervention. She is also going to see Dr. Yeh, her colorectal surgeon next [place], which is approximately 6 days.
[2016-09-27] MEDS: DAKIN'S SOLN 0.25% HALF STRENGTH 473ML BTL EXT SCH ×2 (13:59→23:39)
[2016-09-27 15:02] VITALS: BP_SYST 81; BP_SYST 98; BP_DIAS 50; BP_DIAS 64; PULSE 72; TEMP 36.7; O2SAT 99
[2016-09-27 15:32] VITALS: BP 80/54
[2016-09-27] MEDS: WARFARIN SOD 5 MG TAB PO SCH (15:41)
[2016-09-27 17:29] VITALS: BP 125/91
[2016-09-27] MEDS: LOPERAMIDE LIQUID 1MG/7.5ML 120ML BTL PO SCH (19:46)
[2016-09-28 00:15] VITALS: BP 91/60; PULSE 60; TEMP 36.6; O2SAT 97
[2016-09-28] MEDS: PIPERACILL/TAZOBAC IV 4.5 GM in DEXTROSE 5% 100ML 100 ML IV SCH ×3 (02:00→19:27)
[2016-09-28] MEDS: ACETAMINOPHEN 325 MG TAB PO PRN (05:50)
[2016-09-28 07:14] VITALS: BP 94/63; PULSE 79; TEMP 36.7; O2SAT 98
[2016-09-28 07:29] LABS: INR 4.7 (0.9-1.1); PROTHROMBIN TIME (PATIENT) 53.1 SECONDS (9.0-12.0)
[2016-09-28] MEDS: DAKIN'S SOLN 0.25% HALF STRENGTH 473ML BTL EXT SCH ×2 (07:30→15:39)
[2016-09-28 07:38] LABS: BUN/CREATININE RATIO 13.9 (10-20); CALCIUM 8.9 mg/dl (8.5-10.1); CREATININE 1.4 mg/dl (0.60-1.20); POTASSIUM 4.3 mmol/L (3.5-5.1)
[2016-09-28] MEDS: CYANOCOBALAMIN 500 MCG TAB (VIT B-12) PO SCH (08:09)
[2016-09-28] MEDS: ATORVASTATIN 20 MG TAB PO SCH (08:09)
[2016-09-28] MEDS: CHOLECALCIFEROL 1000 INTER.UNIT TAB PO SCH (08:10)
[2016-09-28] MEDS: NICOTINE 14 MG/24 HR TDSY TD SCH (08:10)
[2016-09-28] MEDS: PANTOprazole SOD 40 MG TAB PO SCH (08:10)
[2016-09-28] MEDS: LORATADINE 10 MG TAB PO SCH (08:10)
[2016-09-28] MEDS: LACTOBACILLUS ACIDOPHILUS (FLORANEX) TAB PO SCH (08:10)
[2016-09-28] MEDS: LOPERAMIDE LIQUID 1MG/7.5ML 120ML BTL PO SCH ×3 (08:11→20:37)
--- NOTE | 2016-09-28 09:35 | Surgery Progress Note ---
Surgery Progress Note Date of Service Sep 28, 2016. Subjective tolerating diet, c/o muscle cramps Objective Vital Signs: Date Time Temp Pulse Resp B/P (MAP) Pulse Ox O2 Delivery O2 Flow Rate FiO2 09/28/16 07:14 36.7 79 18 94/63 (73) 98 Room Air 09/28/16 00:15 36.6 60 18 91/60 (70) 97 Room Air 09/28/16 00:00 Room Air 09/27/16 17:29 125/91 (102) 09/27/16 15:32 80/54 (63) 09/27/16 15:30 Room Air 09/27/16 15:02 36.7 72 18 98/64 (75) 99 Room Air 81/50 (60) Abdomen: soft, + pertinent finding (ostomy pouch leaking) Incision(s): findings (packed) Laboratory Results: Results Past 24 Hours Test 09/28/16 06:47 Range/Units Prothrombin Time 53.1 9.0-12.0 SECONDS Prothromb Time International Ratio 4.7 0.9-1.1 Sodium Level 130 136-145 mmol/L Potassium Level 4.3 3.5-5.1 mmol/L Chloride Level 101 98-107 mmol/L Carbon Dioxide Level 22 21-32 mmol/L Anion Gap 7.0 3-11 mmol/L Blood Urea Nitrogen 19 7-18 mg/dl Creatinine 1.40 0.60-1.20 mg/dl Est Creatinine Clear Calc Drug Dose 53.5 ml/min Estimated GFR () 46.6 Estimated GFR (Non- 40.2 BUN/Creatinine Ratio 13.9 10-20 Random Glucose 82 70-99 mg/dl Calcium Level 8.9 8.5-10.1 mg/dl Assessment & Plan s/p ileostomy, open abdominal incision seen with WOCN at bedside, wound vac will be placed and ileostomy pouch/ wafer replaced output is thickened, fluid/electrolyte management per primary
[2016-09-28] MEDS ORDERED: VANCOMYCIN TROUGH SCH (11:30)
[2016-09-28] MEDS: VANCOMYCIN INJ 1,750 MG in SODIUM CHLORIDE 0.9% 500ML 500 ML IV SCH (13:19)
[2016-09-28] MEDS: WARFARIN SOD 5 MG TAB PO SCH (15:40)
--- NOTE | 2016-09-28 15:47 | Pharmacy Progress Note ---
Pharmacy Antibiotic Prog Note Date of Service Sep 28, 2016. Subjective The patient is currently receiving vancomycin 1750 mg IV every 14 hours, and Zosyn 4.5 Gm IV q8h. The patient is currently on day # 3 of vancomycin and Zosyn IV therapy. Objective Height (Feet): 5 Height (Inches): 6.00 Weight (Kilograms): 114.500 Levels: Item Value Date Time Vancomycin Level Trough 24.8 mcg/ml 09/28/16 1121 Previous dose hung 09/27 @ 2159. Lab Results (24hrs): Test 09/28/16 06:47 09/28/16 11:21 Prothrombin Time 53.1 SECONDS (9.0-12.0) Prothromb Time International Ratio 4.7 (0.9-1.1) Sodium Level 130 mmol/L (136-145) Potassium Level 4.3 mmol/L (3.5-5.1) Chloride Level 101 mmol/L (98-107) Carbon Dioxide Level 22 mmol/L (21-32) Anion Gap 7.0 mmol/L (3-11) Blood Urea Nitrogen 19 mg/dl (7-18) Creatinine 1.40 mg/dl (0.60-1.20) Est Creatinine Clear Calc Drug Dose 53.5 ml/min Estimated GFR () 46.6 Estimated GFR (Non- 40.2 BUN/Creatinine Ratio 13.9 (10-20) Random Glucose 82 mg/dl (70-99) Calcium Level 8.9 mg/dl (8.5-10.1) Vancomycin Level Trough 24.8 mcg/ml (SEE COMMENT) Recent Pertinent Medications Item Value Date Time Vancomycin HCl 535 ml @ 200 mls/hr 09/29/16 1200 1750 mg/Sodium Q18H/IV Chloride Vancomycin HCl 535 ml @ 200 mls/hr 09/27/16 0800 1750 mg/Sodium Q14H/IV 09/28/16 1319 Chloride Piperacillin Sod/ 120 ml @ 30 mls/hr 09/27/16 0200 Tazobactam Sod Q8H/IV 09/28/16 1019 4.5 gm/Dextrose Assessment & Plan This drug level is: Supratherapeutic. Renal function has declined, so will extend dosing interval and recheck trough in a few days. Change to vancomycin 1750 mg IV every 18 hours. Goal trough level estimate: between 15-20 mcg/mL. Trough has been ordered for: 09/30/16 @ 2330 (before 10/01 midnight dose). Continue Zosyn 4.5 Gm (infused over 4 hr) every 8 hours for CrCl greater than 20 ml/min. Pharmacy will continue to follow and will adjust dose/frequency as necessary. Thank you
[2016-09-28 15:55] VITALS: BP 104/71; PULSE 72; TEMP 36.8; O2SAT 98
--- NOTE | 2016-09-28 16:21 | Progress Note ---
Subjective Date of Service: Sep 28, 2016. Subjective Pt evaluation today including: conversation w/ patient, physical exam, lab review, conversation w/ solar consultant, review of inpatient medication list Pain: more pain with wound with vac in place PO Intake: adequate Voiding: no voiding problems patient in tears, wound vac in place, making her abdomen more tender frustrated with the leak in her ostomy bag, her skin is red, occasional bleeding patient wants to drink more, feels dehydrated discussed case with her colorectal surgeon from [place], she saw the patient 3 days ago she does NOT want the wound vac in place, feels like it is making things worse Problem List Medical Problems: (1) Abdominal pain Status: Acute (2) JULIETTE (acute kidney injury) Status: Acute (3) Dehydration Status: Acute (4) Diarrhea Status: Acute (5) Epistaxis Status: Acute (6) Fever Status: Acute (7) Fistula of intestine, excluding rectum and anus Status: Acute (8) Headache Status: Acute (9) Hyponatremia Status: Acute (10) Ileus Status: Acute (11) Inflammatory bowel disease Status: Acute (12) Left sided chest pain Status: Acute (13) Multiple pulmonary emboli Status: Acute (14) Optic neuritis Status: Acute (15) Partial small bowel obstruction Status: Acute (16) Rectal bleed Status: Acute (17) RLQ abdominal pain Status: Acute (18) RLQ abdominal pain Status: Acute (19) Small bowel obstruction Status: Acute (20) Small bowel obstruction Status: Acute (21) Substernal chest pain Status: Acute (22) Subtherapeutic international normalized ratio (INR) Status: Acute (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 (24) Visual disturbance Status: Acute Review of Systems Constitutional: + weakness, + fatigue Abdomen: + pain, + problem reported (ostomy leaking) Psychiatric: + anxiety Skin: + problem reported (painful abdominal wound) All Other Systems: Reviewed and Negative Medications Current Inpatient Medications Medications (Trade) Dose Ordered Sig/Rachael Route Start Time Stop Time Status Last Admin Dose Admin Atorvastatin Calcium (Lipitor Tab) 20 mg DAILY PO 09/27/16 08:00 10/27/16 08:59 09/28/16 08:09 20 MG Loratadine (Claritin Tab) 10 mg DAILY PO 09/27/16 08:00 10/27/16 08:59 09/28/16 08:10 10 MG Oxycodone HCl (Roxicodone Immediate Rel Tab) 5 mg Q4H PRN PO 09/26/16 16:00 10/10/16 15:59 09/27/16 07:54 5 MG Pantoprazole Sodium (Protonix Tab) 40 mg QAM PO 09/27/16 08:00 10/27/16 08:59 09/28/16 08:10 40 MG Trazodone HCl (Desyrel Tab) 50 mg HS PRN PO 09/26/16 16:00 10/26/16 15:59 Warfarin Sodium (Coumadin Tab) 5 mg SuMoWeFrSa@1600 PO 09/26/16 19:00 10/26/16 18:59 09/27/16 15:41 5 MG Warfarin Sodium (Coumadin Tab) 7.5 mg TuTh@1600 PO 09/29/16 16:00 10/29/16 15:59 Cholecalciferol (Vitamin D Tab) 2,000 inter.unit QAM PO 09/27/16 08:00 10/27/16 08:59 09/28/16 08:10 2,000 INTER.UNIT Cyanocobalamin (Vitamin B-12 Tab) 1,000 mcg DAILY PO 09/27/16 08:00 10/27/16 08:59 09/28/16 08:09 1,000 MCG Lactobacillus Acidophilus (Floranex Tab) 4 tab DAILY PO 09/27/16 08:00 10/27/16 08:59 09/28/16 08:10 4 TAB Prednisone (PredniSONE TAB) 5 mg DAILY PO 09/27/16 08:00 10/04/16 08:59 09/28/16 08:10 5 MG Lorazepam (Ativan Tab) 0.5 mg Q6 PRN PO 09/26/16 16:00 10/26/16 15:59 09/26/16 23:45 0.5 MG Acetaminophen (Tylenol Tab) 650 mg Q4H PRN PO 09/26/16 16:15 10/26/16 16:14 09/28/16 05:50 650 MG Magnesium Hydroxide (Milk Of Magnesia Susp) 30 ml Q6H PRN PO 09/26/16 16:15 10/26/16 16:14 Ondansetron HCl (Zofran Inj) 4 mg Q6H PRN IV 8/19/17 16:15 10/26/16 16:14 Loperamide HCl (Imodium Cap) 2 mg UD PRN PO 09/26/16 18:45 10/26/16 18:44 09/27/16 02:39 2 MG Lorazepam 0.5 mg/ Syringe 1 ml @ 1 mls/min Q4H PRN IV 09/26/16 18:45 10/26/16 18:44 Lorazepam 1 mg/ Syringe 1 ml @ 1 mls/min Q4H PRN IV 09/26/16 18:45 10/26/16 18:44 Piperacillin Sod/ Tazobactam Sod 4.5 gm/Dextrose 120 ml @ 30 mls/hr Q8H IV 09/27/16 02:00 10/06/16 23:59 09/28/16 10:19 30 MLS/HR Vancomycin HCl (Consult) 1 ea UD PRN N/A 09/26/16 19:45 10/26/16 19:44 Piperacillin Sod/ Tazobactam Sod (Consult) 1 ea UD PRN N/A 09/26/16 20:00 10/26/16 19:59 Nicotine (Nicoderm Cq 14MG Patch) 1 patch QAM TD 09/27/16 11:26 10/27/16 11:25 09/28/16 08:10 1 PATCH Miscellaneous (Remove Nicoderm Patch) 1 ea HS N/A 09/27/16 22:00 10/27/16 21:59 09/27/16 21:59 1 EA Ketorolac Tromethamine (Toradol Inj) 30 mg Q6H PRN IV. 09/27/16 11:45 10/02/16 11:44 09/27/16 12:07 30 MG Irrigating Solution (Dakin'S Soln Half Strength) 1 appln QS EXT 09/27/16 16:00 10/27/16 15:59 09/28/16 15:39 1 APPLN Loperamide HCl (Imodium A-D Liquid) 4 mg BID PO 09/27/16 20:00 10/27/16 19:59 09/28/16 08:11 4 MG Vancomycin HCl 1750 mg/Sodium Chloride 535 ml @ 200 mls/hr Q18H IV 09/29/16 12:00 10/06/16 11:59 Objective Vital Signs Date Time Temp Pulse Resp B/P (MAP) Pulse Ox O2 Delivery O2 Flow Rate FiO2 09/28/16 15:55 36.8 72 16 104/71 (82) 98 Room Air 09/28/16 08:00 Room Air 09/28/16 07:14 36.7 79 18 94/63 (73) 98 Room Air 09/28/16 00:15 36.6 60 18 91/60 (70) 97 Room Air 09/28/16 00:00 Room Air 09/27/16 17:29 125/91 (102) Physical Exam General Appearance: no apparent distress, + obese Neck: supple, no adenopathy, no JVD, trachea midline Respiratory/Chest: chest non-tender, lungs clear, normal breath sounds, no respiratory distress, no accessory muscle use Cardiovascular: regular rate, rhythm, no edema, no gallop, no JVD, no murmur Abdomen: normal bowel sounds, soft, no organomegaly, + pertinent finding ( right lower quadrant ostomy, leaking stool, skin red and inflamed, wound with red irritated skin) Neurologic/Psychiatric: ekg technician II-XII nml as tested, no motor/sensory deficits, alert, normal mood/affect, oriented x 3 Skin: normal color, warm/dry, no rash Lymphatic: no adenopathy Laboratory Results Last 24 Hours Test 09/28/16 06:47 09/28/16 11:21 Prothrombin Time 53.1 SECONDS Prothromb Time International Ratio 4.7 Sodium Level 130 mmol/L Potassium Level 4.3 mmol/L Chloride Level 101 mmol/L Carbon Dioxide Level 22 mmol/L Anion Gap 7.0 mmol/L Blood Urea Nitrogen 19 mg/dl Creatinine 1.40 mg/dl Est Creatinine Clear Calc Drug Dose 53.5 ml/min Estimated GFR () 46.6 Estimated GFR (Non- 40.2 BUN/Creatinine Ratio 13.9 Random Glucose 82 mg/dl Calcium Level 8.9 mg/dl Vancomycin Level Trough 24.8 mcg/ml Assessment and Plan 59-year-old female admitted on 09/26/2016 with complaint of with recent ileostomy for Crohn's disease who has hyponatremia , poorly healing dehisced abdominal wound hyponatremia - due to hypovolemia with high ostomy output lift fluid restriction, encourage PO intake, stressed drinking fluids with electrolytes NSS at 125cc/hr Na is 130 today, improving slowly Acute kidney injury with creatinine - prerenal due to dehydration resume NSS today, Cr down to baseline but low urine output with her high ostomy output Abdominal nonhealing wounds with Recent abdominal surgery because of bowel obstruction in August spoke with surgeon at [place] today, feels that skin and wound are irritated because home nurses had no wound vac experience she wants wound vac off and using packing, dry dressings Ileostomy, high output: imodium ordered, ostomy nurse consultation for recommendations ostomy is leaking, again, improper care at home prior to admission skin around stoma sight irritated Regarding her Crohn's disease she is currently off Humira and is on 5 mg for prednisone continue History of thrombophilia: maintained on her warfarin 7.5 on Tuesdays and 5 mg every other day this will also serve as DVT prevention, Today's INR is 4.7, hold further coumadin Continued [facility] stay due to: multiple IV medications needed Discharge planning: home
[2016-09-28] MEDS: SODIUM CHLORIDE 0.9% 1000ML 1,000 ML IV SCH (16:39)
[2016-09-28 20:36] VITALS: BP 121/81; PULSE 79; TEMP 36.9; O2SAT 96
[2016-09-28] MEDS: KETOROLAC TROMETHAMINE 30 MG/ML VIAL IV. PRN (20:39)
[2016-09-29 00:11] VITALS: BP 108/56
[2016-09-29 00:19] VITALS: BP 105/41; PULSE 66; TEMP 36.3; O2SAT 100
[2016-09-29] MEDS: SODIUM CHLORIDE 0.9% 1000ML 1,000 ML IV SCH ×2 (00:49→10:41)
[2016-09-29] MEDS: PIPERACILL/TAZOBAC IV 4.5 GM in DEXTROSE 5% 100ML 100 ML IV SCH ×2 (02:18→10:41)
[2016-09-29] MEDS: DAKIN'S SOLN 0.25% HALF STRENGTH 473ML BTL EXT SCH ×2 (05:11→08:00)
[2016-09-29] MEDS: KETOROLAC TROMETHAMINE 30 MG/ML VIAL IV. PRN ×2 (05:22→13:45)
[2016-09-29 05:48] LABS: HEMATOCRIT 37.4 % (37-47); MEAN CELL VOLUME 90.6 fL (80-100); MEAN CORPUSCULAR HEMOGLOBIN 32.4 pg (25-34); MEAN CORPUSCULAR HGB CONC 35.8 g/dl (32-36); PLATELET COUNT 225 K/uL (130-400); RED BLOOD COUNT 4.13 M/uL (4.2-5.4); WHITE BLOOD COUNT 7.08 K/uL (4.8-10.8)
[2016-09-29 06:26] LABS: BUN/CREATININE RATIO 12.7 (10-20); CALCIUM 8.1 mg/dl (8.5-10.1); CREATININE 1.1 mg/dl (0.60-1.20); MAGNESIUM 1.8 mg/dl (1.8-2.4); POTASSIUM 4.1 mmol/L (3.5-5.1)
[2016-09-29 06:28] LABS: PROTHROMBIN TIME (PATIENT) 44.8 SECONDS (9.0-12.0)
--- NOTE | 2016-09-29 07:22 | Surgery Progress Note ---
Surgery Progress Note Date of Service Sep 29, 2016. Subjective Having a problem with controlling stoma drainage- leaking bag. pt is morbidly obese and stoma is relatively flush. pt wishes to go back to [place] Objective Vital Signs: Date Time Temp Pulse Resp B/P (MAP) Pulse Ox O2 Delivery O2 Flow Rate FiO2 09/29/16 00:19 36.3 66 18 105/41 (62) 100 Room Air 09/29/16 00:11 108/56 (73) 09/29/16 00:00 Room Air 09/28/16 20:36 36.9 79 20 121/81 (94) 96 Room Air 09/28/16 16:00 Room Air 09/28/16 15:55 36.8 72 16 104/71 (82) 98 Room Air 09/28/16 08:00 Room Air General Appearance: + mild distress Head: atraumatic Respiratory/Chest: no respiratory distress Abdomen: + pertinent finding (midline wound is clean/ granulating- less purulent drainage) Laboratory Results: Results Past 24 Hours Test 09/28/16 11:21 09/29/16 05:29 Range/Units Vancomycin Level Trough 24.8 SEE COMMENT mcg/ml White Blood Count 7.08 4.8-10.8 K/uL Red Blood Count 4.13 4.2-5.4 M/uL Hemoglobin 13.4 12.0-16.0 g/dL Hematocrit 37.4 37-47 % Mean Corpuscular Volume 90.6 80-100 fL Mean Corpuscular Hemoglobin 32.4 25-34 pg Mean Corpuscular Hemoglobin Concent 35.8 32-36 g/dl RDW Standard Deviation 45.5 36.4-46.3 fL RDW Coefficient of Variation 13.7 11.5-14.5 % Platelet Count 225 130-400 K/uL Mean Platelet Volume 9.0 7.4-10.4 fL Prothrombin Time 44.8 9.0-12.0 SECONDS Prothromb Time International Ratio 4.0 0.9-1.1 Sodium Level 131 136-145 mmol/L Potassium Level 4.1 3.5-5.1 mmol/L Chloride Level 106 98-107 mmol/L Carbon Dioxide Level 17 21-32 mmol/L Anion Gap 8.0 3-11 mmol/L Blood Urea Nitrogen 14 7-18 mg/dl Creatinine 1.10 0.60-1.20 mg/dl Est Creatinine Clear Calc Drug Dose 68.1 ml/min Estimated GFR () 62.3 Estimated GFR (Non- 53.8 BUN/Creatinine Ratio 12.7 10-20 Random Glucose 106 70-99 mg/dl Calcium Level 8.1 8.5-10.1 mg/dl Magnesium Level 1.8 1.8-2.4 mg/dl skin around stoma now erythematous from leaking bag Assessment & Plan 09/29/16- Current problem is leakage from ileostomy and concern for skin breakdown- Probably best for pt to be transferred to [place] especially in light of complicated post op course 3 weeks ago. will discuss with medical team
[2016-09-29 07:36] VITALS: BP 103/69; PULSE 68; TEMP 36.6; O2SAT 98
[2016-09-29] MEDS: LOPERAMIDE LIQUID 1MG/7.5ML 120ML BTL PO SCH (08:00)
[2016-09-29] MEDS ORDERED: PRD5 PO (09:14)
[2016-09-29] MEDS: CHOLECALCIFEROL 1000 INTER.UNIT TAB PO SCH (09:15)
[2016-09-29] MEDS: LACTOBACILLUS ACIDOPHILUS (FLORANEX) TAB PO SCH (09:15)
[2016-09-29] MEDS: NICOTINE 14 MG/24 HR TDSY TD SCH (09:15)
[2016-09-29] MEDS: PANTOprazole SOD 40 MG TAB PO SCH (09:15)
--- NOTE | 2016-09-29 09:15 | Discharge Instructions ---
Discharge Instructions Date of Service Sep 29, 2016. Admission Reason for Admission: Hyponatremia Discharge Discharge Diagnosis / Problem: Hyponatremia, dehydration, malfunctioning ileostomy Discharge Goals Goal(s): Improve function, Therapeutic intervention Activity Recommendations Activity Limitations: resume your previous activity Lifting Limitations: until after follow-up appointment Exercise/Sports Limitations: until after follow-up appointment May Resume Sexual Activity: after follow-up appointment Shower/Bathe: keep incision dry Driving or Machine Use: no limitations . Instructions / Follow-Up Instructions / [place] [facility] [place] Current Hospital Diet Patient's current hospital diet: Low Fiber Diet Discharge Diet Recommended Diet: Low Fiber Diet Procedures Procedures Performed: none Pending Studies Studies pending at discharge: no Medical Emergencies . Who to Call and When: Medical Emergencies: If at any time you feel your situation is an emergency, please call 911 immediately. . Non-Emergent Contact Non-Emergency issues call your: Surgeon Call Non-Emergent contact if: you have a fever, your pain is not controlled, wound has increased drainage, wound has increased redness, you have any medication questions . . "Provider Documentation" section prepared by Juan Francisco Mason. . VTE Core Measure Inpt VTE Proph given/why not?: Warfarin (Coumadin) [place] Drug Monitoring Program Search Results: no issues identified
[2016-09-29] MEDS: LORATADINE 10 MG TAB PO SCH (09:16)
[2016-09-29] MEDS: ATORVASTATIN 20 MG TAB PO SCH (09:16)
[2016-09-29] MEDS: CYANOCOBALAMIN 500 MCG TAB (VIT B-12) PO SCH (09:16)
[2016-09-29] MEDS ORDERED: VANCOMYCIN INJ 1,750 MG in SODIUM CHLORIDE 0.9% 500ML 500 ML IV SCH (12:00)
--- NOTE | 2016-09-29 15:27 | Discharge Summary ---
Discharge Summary Date of Service Sep 29, 2016. Discharge Summary Admission Date: Sep 26, 2016 at 16:04 Discharge Date: Sep 29, 2016 Discharge Disposition: Acute care facility Principal Diagnosis: Malfunctioning ileostomy Problems/Secondary Diagnoses: dehydration hyponatremia Crohn's disease Procedures: none Consultations: General surgery Ostomy nurse Medication Reconciliation New Medications: Prednisone (Prednisone) 5 Mg Tab 5 MG PO DAILY, #30 TAB 3 Refills Continued Medications: Acetaminophen (Tylenol) 325 Mg Tab 650 MG PO Q4H PRN for Pain, TAB Atorvastatin (Lipitor) 20 Mg Tab 20 MG PO DAILY, TAB Cholecalciferol (Vitamin D3) 2,000 Unit Cap 2000 UNITS PO QAM for 90 Days, CAP 3 Refills Cyanocobalamin (Vitamin B12) 1,000 Mcg Tab 1000 MCG PO DAILY Loperamide Hcl (Imodium A-D) 2 Mg Tab 2 MG PO UD PRN for GI Upset Loratadine (Claritin) 10 Mg Tab 10 MG PO DAILY, TAB Oxycodone Ir (Roxicodone Ir) 5 Mg Tab 5 MG PO Q4H PRN for Severe Pain, TAB Pantoprazole (Protonix) 40 Mg Tab 40 MG PO QAM, #30 TAB Probiotic Product (Digestive Advantage Probi) 1 Chw Chw 1 CAP PO DAILY Trazodone Hcl (Trazodone) 50 Mg Tab 50 MG PO HS PRN for Sleep, TAB Discontinued Medications: Prednisone (Prednisone) 5 Mg Tab 20 MG PO DAILY W/FOOD., TAB TAPERING DOSE: 20 MG DAILY FOR 7 DAYS, 09/11/16-09/17/16. 10 MG DAILY FOR 7 DAYS, 09/18/16-09/24/16. 5 MG DAILY FOR 7 DAYS, 09/25/16-10/01/16. Warfarin Sod (Jantoven) 7.5 Mg Tab 7.5 MG PO 2XWK, TAB WEDNESDAY & WEDNESDAY Warfarin Sod (Jantoven) 5 Mg Tab 5 MG PO 5XWK, TAB WEDNESDAY, WEDNESDAY, WEDNESDAY, , WEDNESDAY, WEDNESDAY Discharge Exam Patient tearful today about her skin which looks very irritated and sore. Still leaking from ostomy bag despite being addressed by ostomy nurse. Discussed with Dr. Zambrano, he recommended going to [facility] and patient wants to do this. Discussed with colorectal surgery at [facility], they accepted on transfer. Review of Systems: Constitutional: + weakness, No fever, No chills, No sweats, No weight loss, No fatigue, No problem reported Eyes: No worsening of vision, No eye pain, No redness, No discharge, No diplopia, No problem reported ENT: No hearing loss, No unusual epistaxis, No nasal symptoms, No sore throat, No tinnitus, No dental problems, No trouble swallowing, No problem reported Respiratory: No cough, No sputum, No wheezing, No shortness of breath, No dyspnea on exertion Cardiovascular: No chest pain, No orthopnea, No PND, No edema, No claudication, No palpitations, No problem reported Abdomen: No pain, No nausea, No vomiting, No diarrhea, No constipation, No GI bleeding, No problem reported Musculoskeletal: No joint pain, No muscle pain, No swelling, No calf pain, No problem reported Genitourinary - Female: No dysuria, No urinary frequency, No urinary urgency , No urinary incontinence Neurologic: + weakness, No memory loss, No paralysis, No numbness/tingling, No vertigo, No balance problems, No problem reported Psychiatric: + depression symptoms, No anhedonism, No anxiety, No insomnia, No substance abuse, No problem reported Endocrine: No fatigue, No excessive thirst, No excessive urination, No problem reported Hematologic / Lymphatic: No abnormal bleeding/bruising, No clotting problems , No swollen lymph nodes, No night sweats, No problem reported Integumentary: + rash (anterior abdomen irritated, open wound less tender today), No itch, No new/changing skin lesions, No color change, No bleeding, No problem reported Physical Exam: General Appearance: no apparent distress, + obese Eyes: normal inspection, EOMI, sclerae normal ENT: normal ENT inspection, hearing grossly normal, pharynx normal Neck: supple, no adenopathy, no JVD, trachea midline Respiratory/Chest: chest non-tender, lungs clear, normal breath sounds, no respiratory distress, no accessory muscle use Cardiovascular: regular rate, rhythm, no edema, no gallop, no JVD, no murmur , normal peripheral pulses Abdomen / GI: normal bowel sounds, non tender, soft, no organomegaly Extremities: normal inspection, no calf tenderness, normal capillary refill , no pedal edema, normal range of motion, pelvis stable Neurologic/Psychiatric: audit control clerk II-XII nml as tested, no motor/sensory deficits , alert, normal mood/affect, normal reflexes, oriented x 3 Skin: + rash (erythema and bleeding of skin around stoma sight, stoma is flush with skin, bag leaking, open wound with red tissue) Hospital Course 59-year-old female admitted on 09/26/2016 with complaint of with recent ileostomy for Crohn's disease who has hyponatremia , poorly healing dehisced abdominal wound hyponatremia - due to hypovolemia with high ostomy output encourage PO intake, stressed drinking fluids with electrolytes NSS at 125cc/hr Na is 131 today, improving slowly, can hold fluids on transport but continue once at [facility] Acute kidney injury with creatinine - prerenal due to dehydration, resolved continue NSS today, Cr down to baseline, urine output improved Abdominal nonhealing wounds with Recent abdominal surgery because of bowel obstruction in August d/w Dr. Zambrano today, due to malfunctioning ostomy sight he recommends going to [facility] called colorectal surgeon at [facility], agrees to take patient on their service transport arranged Ileostomy, high output: imodium ordered QID, ostomy nurse consultation for recommendations ostomy is leaking, again, improper care at home prior to admission skin around stoma sight irritated going to [facility] today Regarding her Crohn's disease she is currently off Humira and is on 5 mg of prednisone History of PE: holding Coumadin due to elevated INR >4.0, would continue to hold Coumadin and follow INR daily would need to potentially reverse if surgery needed Total Time Spent: Greater than 30 minutes This includes examination of the patient, discharge planning, medication reconciliation, and communication with other providers. Discharge Instructions Please refer to the electronic Patient Visit Report (Discharge Instructions) for additional information. Follow-Up surgeon at [facility] Additional Copies To Velma Aceves M.D.
[2016-09-29] MEDS ORDERED: WARFARIN SOD 7.5 MG TAB PO SCH (16:00)
[2016-09-29 16:49] VITALS: BP 113/66; PULSE 66; TEMP 36.5; O2SAT 97
[2016-09-30] MEDS ORDERED: VANCOMYCIN TROUGH SCH (23:30)
[2016-11-17] MEDS ORDERED: NICO14DI5 TD (12:37)
[2016-11-17] MEDS ORDERED: ZYR10 PO (12:37)
== END 2016-09-29 17:47 | disposition short-term general hospital (02) | DRG 920 ==
LOC: EDBD 11:31 → C.EDC 11:32 → C.MS4W 16:04 → ENRESERV 16:21
PROVIDERS: ADMIT Internal Medicine; ATTEND Internal Medicine
DX: T81.31XA Disruption of external operation (surgical) wound, not elsewhere classified, initial encounter (principal); K94.19 Other complications of enterostomy; K50.013 Crohn's disease of small intestine with fistula; E87.1 Hypo-osmolality and hyponatremia; N17.9 Acute kidney failure, unspecified; F17.200 Nicotine dependence, unspecified, uncomplicated; Z79.01 Long term (current) use of anticoagulants; E86.0 Dehydration; Z86.711 Personal history of pulmonary embolism; Z91.19 Patient's noncompliance with other medical treatment and regimen; Y83.8 Other surgical procedures as the cause of abnormal reaction of the patient, or of later complication, without mention of misadventure at the time of the procedure; Y92.019 Unspecified place in single-family (private) house as the place of occurrence of the external cause

== ENCOUNTER 2016-11-15 09:05 | Observation (INO) | payer OTHER ==
[~2016-11-15] VITALS: Ht 167.6 cm; Wt 119.0 kg
[~2016-11-15 09:05] MED LIST changes: -ENOX120I SQ; +LOPE-5 PO; -METR250T PO; -NICO21DI35 TD; +PRD5 PO; +WARF5TAB7 PO; +WARF7.5T4 PO
[2016-11-15] MEDS ORDERED: MoRPHine SULFATE 4 MG/ML 1 ML CARP\\VIAL IV STA ×5 (09:39→16:48)
[2016-11-15] MEDS ORDERED: ONDANSETRON INJ 2 MG/ML 2 ML VIAL IV STA (09:39)
[2016-11-15] MEDS ORDERED: OPTIRAY 320 IV PRN (10:15)
[2016-11-15 10:45] LABS: URINE APPEARANCE CLEAR (CLEAR); URINE BILIRUBIN NEG (NEG); URINE COLOR YELLOW; URINE NITRITE NEG (NEG); URINE PH 5.5 (4.5-7.5); URINE SPECIFIC GRAVITY 1.013 (1.000-1.030); UROBILINOGEN NEG (NEG)
[2016-11-15 10:47] LABS: MANUAL MICROSCOPIC REQUIRED? YES; REVIEW REQ? NO
[2016-11-15 10:56] LABS: URINE BACTERIA 1+ (NEG); URINE RBC 0-4 /hpf (0-4)
[2016-11-15 10:57] LABS: ZZUR CULT IF INDIC CLEAN CATCH YES
[2016-11-15] MEDS ORDERED: PSEU60TA80 PO (11:32)
[2016-11-15] MEDS ORDERED: LOPELIQ6 PO (11:32)
[2016-11-15] MEDS ORDERED: WARF2.5T8 PO (11:32)
[2016-11-15 11:41] LABS: BASO % 0.4 %; BASO ABS # 0.03 K/uL (0-0.2); COMPLETE YES; EOS % 2.7 %; HEMATOCRIT 43.3 % (37-47); IG% 0.8 %; LYMPH % 13.9 %; LYMPH ABS # 1.02 K/uL (1.2-3.4); MEAN CELL VOLUME 93.7 fL (80-100); MEAN CORPUSCULAR HEMOGLOBIN 31.4 pg (25-34); MEAN CORPUSCULAR HGB CONC 33.5 g/dl (32-36); MEAN PLATELET VOLUME 9.8 fL (7.4-10.4); MONO % 6.3 %; NEUT % 75.9 %; PLATELET COUNT 205 K/uL (130-400); RED BLOOD COUNT 4.62 M/uL (4.2-5.4); WHITE BLOOD COUNT 7.35 K/uL (4.8-10.8)
[2016-11-15 11:53] LABS: PARTIAL THROMBOPLASTIN RATIO 1.4; PROTHROMBIN TIME (PATIENT) 22.1 SECONDS (9.0-12.0)
[2016-11-15 12:00] LABS: ALT/SGPT 32 U/L (12-78); BLOOD UREA NITROGEN 12 mg/dl (7-18); BUN/CREATININE RATIO 12.9 (10-20); CALCIUM 9.8 mg/dl (8.5-10.1); CARBON DIOXIDE 22 mmol/L (21-32); CHLORIDE 109 mmol/L (98-107); CREATININE 0.94 mg/dl (0.60-1.20); GLUCOSE 138 mg/dl (70-99); MAGNESIUM 1.8 mg/dl (1.8-2.4); POTASSIUM 3.7 mmol/L (3.5-5.1); SODIUM 139 mmol/L (136-145)
[2016-11-15 12:06] LABS: ALB/GLOB RATIO 0.9 (0.9-2); ALKALINE PHOSPHATASE 78 U/L (45-117); AST/SGOT 26 U/L (15-37)
--- NOTE | 2016-11-15 14:44 | DIAGNOSTIC IMAGING REPORT ---
ABD/PELVIS IV AND ORAL CONT CLINICAL HISTORY: 61 years-old Female presenting with Right sided abdominal pain, hx ileostomy 15 in of colon resected. TECHNIQUE: Multidetector CT of the abdomen and pelvis was performed after the administration of oral and intravenous contrast. IV contrast: 93 mL of Optiray 320. A dose lowering technique was used consistent with the principles of ALARA (as low as reasonably achievable). COMPARISON: 09/15/2016. CT DOSE (mGy.cm): The estimated cumulative dose is 1703.79 mGy.cm. FINDINGS: Sensitometrist topogram: Unremarkable. Lung bases: Lung bases clear. Normal heart size. Coronary artery calcification. No pericardial or pleural effusion. Liver: Normal morphology. Biliary: No intrahepatic or extrahepatic biliary ductal dilatation. Adenomyomatosis at the gallbladder fundus. Gallbladder otherwise normal. Pancreas: Mild parenchymal atrophy. Spleen: Normal. Adrenal glands: Normal. Kidneys and ureters: Normal. No hydronephrosis. Bladder: Incompletely evaluated secondary to underdistention. Pelvic organs: Uterus and right ovary normal. Left ovary not clearly visualized. Bowel: Diverticulosis of the sigmoid colon. Postsurgical changes of distal small bowel resection and cecectomy with ileocolic anastomosis in the right lower quadrant. Right mid abdominal loop ileostomy. No bowel obstruction. Peritoneal cavity: No free fluid or intraperitoneal gas. Lymph nodes: No enlarged lymph nodes in the abdomen or pelvis. Vasculature: Aorta and IVC patent and normal in caliber. Abdominal wall: Normal appearance of the right mid abdominal loop ileostomy. No associated fluid collection or inflammatory change. Infiltration along the surgical incision site in the midline abdomen has improved since the prior exam through closure by secondary intention. Multiple nodular foci of infiltration of the anterior abdominal wall, some of which may represent small hematomas, likely from medication injection. Musculoskeletal: Degenerative changes of the spine. IMPRESSION: 1. Postsurgical changes of loop ileostomy with distal small bowel resection, cecectomy and ileocolic anastomosis. No bowel obstruction. No associated inflammatory change. 2. Multiple small hematomas in the anterior abdominal wall associated with medication injection. 3. Continued interval healing of the ventral midline surgical incision site. No focal fluid collection. 4. No acute intra-abdominal pathology. Electronically signed by: Everton Banks M.D. 11/15/2016 2:42 PM Dictated Date/Time: 11/15/2016 2:34 PM
[2016-11-15] MEDS ORDERED: MAGNESIUM HYDROXIDE SUSP 30 ML UDC PO PRN (15:45)
[2016-11-15] MEDS ORDERED: ACETAMINOPHEN 325 MG TAB PO PRN (16:00)
--- NOTE | 2016-11-15 16:05 | History and Physical ---
History & Physical Date & Time of Service: Nov 15, 2016 at 15:51 Chief Complaint: Abdominal Pain Primary Care Physician: Oc Sesay PA-C History of Present Illness Source: patient 61 y/o F c/o abd pain. Pt states she first noted this pain a couple of weeks ago. The pain is R lateral abd and moves into her back at times. She had an appt with her colo-[place]al [place] [facility] and was told she could take the oxy she was given at d/c from her surgery for this. Pt was using that and it was helping. In fact, her pain did lessen for some time and she was able to manage it with only tylenol. She woke up around 1am this AM with a return of this sharp, stabbing pain and neither the tylenol or oxy was helping, so she came to the ED. Pt has been given 16mg of morphine during her time in the ED and her pain is still not controlled. Pt states that the pain goes away for maybe 15 minutes, but then comes back almost right away. No change in her ostomy output. No n/v. She has been eating without issue. She doesn't have burning with urination, but she does feel a pressure "like it's swollen down there" when she urinates. She drinks water continuously throughout the day so she generally urinates frequently at baseline. She does feel like the pain is similar to when she has had bowel obstructions in the past but she also thought she might have a UTI or kidney infection. Pt denies fever, SOB, chest pain, c/d, LE pain. She does get LE swelling at times if she is on her feet for a prolonged period. Pt was to see Abyish Pete tomorrow to likely resume her Kari dosing at the request of her colo-rectal surgeon. Past Medical/Surgical History Medical Problems: (1) Cellulitis Status: Resolved (2) Crohn's disease involving terminal ileum Status: Chronic (3) Crohns disease Status: Chronic (4) Pulmonary emboli Status: Resolved (5) SBO (small bowel obstruction) Status: Resolved Hyperlipidemia Family History Mother from [place] Social History Smoking Status: Current Every Day Smoker (used to smoke 1.5ppd, now down to 5 cigs/day but more if she has anxiety) Alcohol Use: none Drug Use: none Marital Status: Housing status: lives alone Occupational Status: unemployed Multi-Drug Resistant Organisms History of MDRO: No Allergies Coded Allergies: No Known Allergies (Unverified , 11/15/16) Home Medications Scheduled Atorvastatin (Lipitor), 20 MG PO DAILY Cholecalciferol (Vitamin D3), 2,000 UNITS PO QAM Cyanocobalamin (Vitamin B12), 1,000 MCG PO DAILY Loperamide Hcl (Imodium A-D), 10 MG PO QID Loratadine (Claritin), 10 MG PO DAILY Pantoprazole (Protonix), 40 MG PO QAM Prednisone (Prednisone), 5 MG PO DAILY W/FOOD. Probiotic Product (Digestive Advantage Probi), 1 CAP PO DAILY Pseudoephedrine-Guaifenesin (Mucinex D), 2 TAB PO HS Warfarin Sod (Jantoven), 5 MG PO MWF Warfarin Sod (Jantoven), 2.5 MG PO 4XWK Review of Systems Pertinent positives and negatives reviewed in HPI--all others negative Physical Exam Vital Signs Date Time Temp Pulse Resp B/P (MAP) Pulse Ox O2 Delivery O2 Flow Rate FiO2 11/15/16 14:38 36.5 75 18 107/58 96 11/15/16 13:09 72 18 124/65 96 Room Air 11/15/16 11:38 73 18 119/67 98 Room Air 11/15/16 10:37 77 16 137/77 97 Room Air 11/15/16 09:10 37.7 90 16 177/87 96 Room Air General Appearance: no apparent distress, + obese Head: normocephalic, atraumatic Eyes: normal inspection, EOMI ENT: hearing grossly normal Neck: supple Respiratory/Chest: normal breath sounds, no respiratory distress Cardiovascular: regular rate, rhythm, no edema Abdomen/GI: soft, + tenderness (R lateral and RUQ), + pertinent finding (neg Ruvalcaba's) Back: + right CVA tenderness Extremities/Musculoskelatal: no calf tenderness, no pedal edema Neurologic/Psych: alert, normal mood/affect, oriented x 3 Skin: normal color, warm/dry Diagnostics Laboratory Results Results Past 24 Hours Test 11/15/16 10:05 11/15/16 10:51 11/15/16 11:08 Range/Units Urine Color YELLOW Urine Appearance CLEAR CLEAR Urine pH 5.5 4.5-7.5 Urine Specific Saline 1.013 1.000-1.030 Urine Protein NEG NEG Urine Glucose (UA) NEG NEG Urine Ketones NEG NEG Urine Occult Blood NEG NEG Urine Nitrite NEG NEG Urine Bilirubin NEG NEG Urine Urobilinogen NEG NEG Urine Leukocyte Esterase SMALL NEG Urine WBC (Auto) 0-5 /hpf Urine RBC (Auto) 0-4 /hpf Urine Hyaline Casts (Auto) 0-5 /lpf Urine Epithelial Cells (Auto) 0-5 /lpf Urine Bacteria (Auto) NEG Urine RBC 0-4 0-4 /hpf Urine WBC 10-30 0-5 /hpf Urine Epithelial Cells 10-20 0-5 /lpf Urine Renal Cells 5-10 FEW /lpf Urine Bacteria 1+ NEG White Blood Count 7.35 4.8-10.8 K/uL Red Blood Count 4.62 4.2-5.4 M/uL Hemoglobin 14.5 12.0-16.0 g/dL Hematocrit 43.3 37-47 % Mean Corpuscular Volume 93.7 80-100 fL Mean Corpuscular Hemoglobin 31.4 25-34 pg Mean Corpuscular Hemoglobin Concent 33.5 32-36 g/dl Platelet Count 205 130-400 K/uL Mean Platelet Volume 9.8 7.4-10.4 fL Neutrophils (%) (Auto) 75.9 % Lymphocytes (%) (Auto) 13.9 % Monocytes (%) (Auto) 6.3 % Eosinophils (%) (Auto) 2.7 % Basophils (%) (Auto) 0.4 % Neutrophils # (Auto) 5.58 1.4-6.5 K/uL Lymphocytes # (Auto) 1.02 1.2-3.4 K/uL Monocytes # (Auto) 0.46 0.11-0.59 K/uL Eosinophils # (Auto) 0.20 0-0.5 K/uL Basophils # (Auto) 0.03 0-0.2 K/uL RDW Standard Deviation 48.1 36.4-46.3 fL RDW Coefficient of Variation 14.1 11.5-14.5 % Immature Granulocyte % (Auto) 0.8 % Immature Granulocyte # (Auto) 0.06 0.00-0.02 K/uL Prothrombin Time 22.1 9.0-12.0 SECONDS Prothromb Time International Ratio 2.0 0.9-1.1 Activated Partial Thromboplast Time 37.0 21.0-31.0 SECONDS Partial Thromboplastin Ratio 1.4 Sodium Level 139 136-145 mmol/L Potassium Level 3.7 3.5-5.1 mmol/L Chloride Level 109 98-107 mmol/L Carbon Dioxide Level 22 21-32 mmol/L Anion Gap 8.0 3-11 mmol/L Blood Urea Nitrogen 12 7-18 mg/dl Creatinine 0.94 0.60-1.20 mg/dl Est Creatinine Clear Calc Drug Dose 81.5 ml/min Estimated GFR () 75.4 Estimated GFR (Non- 65.0 BUN/Creatinine Ratio 12.9 10-20 Random Glucose 138 70-99 mg/dl Calcium Level 9.8 8.5-10.1 mg/dl Magnesium Level 1.8 1.8-2.4 mg/dl Total Bilirubin 0.3 0.2-1 mg/dl Aspartate Amino Transf (AST/SGOT) 26 15-37 U/L Alanine Aminotransferase (ALT/SGPT) 32 12-78 U/L Alkaline Phosphatase 78 45-117 U/L Total Creatine Kinase 28 26-192 U/L Creatine Kinase MB < 0.5 0.5-3.6 ng/ml Creatine Kinase MB Ratio 0-3.0 Troponin I < 0.015 0-0.045 ng/ml Total Protein 6.9 6.4-8.2 gm/dl Albumin 3.3 3.4-5.0 gm/dl Globulin 3.6 2.5-4.0 gm/dl Albumin/Globulin Ratio 0.9 0.9-2 Lipase 154 73-393 U/L Lactic Acid Level 1.8 0.4-2.0 mmol/L Microbiology Results 11/15/16 Blood Culture, Received Pending 11/15/16 Blood Culture, Received Pending 11/15/16 Urine Culture, Received Pending Diagnostic Radiology CT AP: 1. Postsurgical changes of loop ileostomy with distal small bowel resection, cecectomy and ileocolic anastomosis. No bowel obstruction. No associated inflammatory change. 2. Multiple small hematomas in the anterior abdominal wall associated with medication injection. 3. Continued interval healing of the ventral midline surgical incision site. No focal fluid collection. 4. No acute intra-abdominal pathology. Impression Assessment and Plan 61 y/o F who was admitted for observation on 11/15 for pain control Abd/flank pain: Uncertain etiology--UTI vs GB path vs scar tissue seem most likely CT AP noted for no issues with recent surgical site or ileostomy, no obstruction noted UA + for leuk est, neg for nitrites making UTI less likely but not completely excluded and given pt has urinary pressure, CVA TTP will start cipro with cx pending and monitor sx. Pt is in agreement with this plan LFTs WNL and GB neg for path on CT, will hold on US for now Cr WNL, t/c renal US if ongoing issues however noted as WNL on CT WBC WNL, mildly elevated temp on arrival Blood cx pending Crohn's: recent [place] [facility] [place], stable Ongoing prednisone taper 5mg started yesterday and will decreased to 2.5mg Wednesday Follows with Aby Pete if needed, was to have an appt with her tomorrow to discuss resuming Kari Hx of PE: therapeutic on coumadin 5mg M//, 2.5mg other days Other: Full code. Pt was quite clear that she does not want prolonged life support. "If [facility] is trying that hard to take me, I don't want to fight it." Reg diet Therapeutic on coumadin for DVT proph Level of Care Med/Surg Resuscitation Status FULL RESUSCITATION VTE Prophylaxis VTE Risk Assessment Done? Y/N: Yes Risk Level: Low
[2016-11-15] MEDS ORDERED: KETOROLAC TROMETHAMINE 30 MG/ML VIAL IV PRN ×2 (16:15→19:15)
[2016-11-15] MEDS ORDERED: IV FLUIDS COMPLETED PRN (16:15)
[2016-11-15] MEDS ORDERED: MoRPHine SULFATE 2 MG/ML CARP IV PRN (16:15)
[2016-11-15 16:57] VITALS: Ht 167.6 cm; Wt 119.0 kg
[2016-11-15 17:30] VITALS: BP 126/82; PULSE 67; TEMP 36.8; O2SAT 97
--- NOTE | 2016-11-15 18:54 | EMERGENCY ROOM VISIT NOTE ---
History First contact with patient: 09:31 Chief Complaint: ABDOMINAL PAIN Stated Complaint: ABDOMINAL PAIN Nursing Triage Summary: pt here with ruq pain since 0100 this am. pt has hx of crohns and ileostomy placed in august in [facility]. pt states was in [facility] for 3 weeks in october for issues with ileostomy. pt states no nausea, but worse pain with movement. History of Present Illness The patient is a 61 year old female who presents to the Emergency Room via ambulance with complaints of "abdominal pain". The patient states that she has a history of abdominal pain, and also colostomy. Colostomy was because she had about 15 inches of her bowel resected secondary to Crohn's disease. She states that this past Wednesday she developed increasing right-sided abdominal pain, and took oxycodone with minimal relief. She states that it has been worsening, therefore called the [facility] this morning to bring her here for evaluation. She also has a headache. She is a history of urinary tract infections. She notes slight discomfort across the chest. She states that she had an ileostomy September 03 which removed part of the intestine. Review of Systems A complete 10-point Review of Systems was discussed with the patient, with pertinent positives and negatives listed in the History of Present Illness. All remaining Review of Systems questions can be considered negative unless otherwise specified. Past Medical/Surgical History Medical Problems: (1) Abdominal pain (2) Bowel obstruction (3) Cellulitis (4) Crohn's disease involving terminal ileum (5) Crohns disease (6) Hyponatremia (7) Partial small bowel obstruction (8) Postmenopausal bleeding (9) Pulmonary emboli (10) Rectal bleeding (11) right eye pain and decreased vision for 1 day (12) RUQ abdominal pain (13) SBO (small bowel obstruction) Family History Patient reports no known family medical history. Social History Smoking Status: Current Every Day Smoker Alcohol Use: none Drug Use: none Marital Status: Housing Status: lives with family Occupation Status: unemployed Current/Historical Medications Scheduled Atorvastatin (Lipitor), 20 MG PO DAILY Cholecalciferol (Vitamin D3), 2,000 UNITS PO QAM Cyanocobalamin (Vitamin B12), 1,000 MCG PO DAILY Loperamide Hcl (Imodium A-D), 10 MG PO QID Loratadine (Claritin), 10 MG PO DAILY Pantoprazole (Protonix), 40 MG PO QAM Prednisone (Prednisone), 5 MG PO DAILY W/FOOD. Probiotic Product (Digestive Advantage Probi), 1 CAP PO DAILY Pseudoephedrine-Guaifenesin (Mucinex D), 2 TAB PO HS Warfarin Sod (Jantoven), 5 MG PO MWF Warfarin Sod (Jantoven), 2.5 MG PO 4XWK Scheduled PRN Acetaminophen (Tylenol), 650 MG PO Q4H PRN for Pain Allergies Coded Allergies: No Known Allergies (Unverified , 11/15/16) Physical Exam Vital Signs Date Time Temp Pulse Resp B/P (MAP) Pulse Ox O2 Delivery O2 Flow Rate FiO2 11/15/16 14:38 36.5 75 18 107/58 96 11/15/16 13:09 72 18 124/65 96 Room Air 11/15/16 11:38 73 18 119/67 98 Room Air 11/15/16 10:37 77 16 137/77 97 Room Air 11/15/16 09:10 37.7 90 16 177/87 96 Room Air Physical Exam VITAL SIGNS - Vital signs and nursing notes were reviewed. Febrile, hypertensive. GENERAL - 61-year-old female appearing her stated age who is in no acute distress. Communicates well with provider and answers questions appropriately. SKIN - Without rashes. HEAD - NC/AT. EYES - Sclera anicteric. EARS - No deformities of external structures noted on gross examination bilaterally. NOSE - Midline and without cyanosis. No epistaxis or purulent drainage noted. MOUTH/OROPHARYNX - Without perioral cyanosis. LUNGS - Chest wall symmetric without accessory muscle use, intercostals retractions, or central cyanosis. Normal vesicular breath sounds CTA B/L. No wheezes, rales, or rhonchi appreciated. CARDIAC - RRR with S1/S2. No murmur, rubs, or gallops appreciated. ABDOMEN - Abdominal contour normal without pulsations or visible masses. Ileostomy in the right lower quadrant. BS normoactive all four quadrants. Right-sided abdominal tenderness. Nonsurgical abdomen. No palpable masses, hepatosplenomegaly, or ascites noted. Medical Decision & Procedures ER Provider Diagnostic Interpretation: ABD/PELVIS IV AND ORAL CONT CLINICAL HISTORY: 61 years-old Female presenting with Right sided abdominal pain, hx ileostomy 15 in of colon resected. TECHNIQUE: Multidetector CT of the abdomen and pelvis was performed after the administration of oral and intravenous contrast. IV contrast: 93 mL of Optiray 320. A dose lowering technique was used consistent with the principles of ALARA (as low as reasonably achievable). COMPARISON: 09/15/2016. CT DOSE (mGy.cm): The estimated cumulative dose is 1703.79 mGy.cm. FINDINGS: Bench Worker Binding topogram: Unremarkable. Lung bases: Lung bases clear. Normal heart size. Coronary artery calcification. No pericardial or pleural effusion. Liver: Normal morphology. Biliary: No intrahepatic or extrahepatic biliary ductal dilatation. Adenomyomatosis at the gallbladder fundus. Gallbladder otherwise normal. Pancreas: Mild parenchymal atrophy. Spleen: Normal. Adrenal glands: Normal. Kidneys and ureters: Normal. No hydronephrosis. Bladder: Incompletely evaluated secondary to underdistention. Pelvic organs: Uterus and right ovary normal. Left ovary not clearly visualized. Bowel: Diverticulosis of the sigmoid colon. Postsurgical changes of distal small bowel resection and cecectomy with ileocolic anastomosis in the right lower quadrant. Right mid abdominal loop ileostomy. No bowel obstruction. Peritoneal cavity: No free fluid or intraperitoneal gas. Lymph nodes: No enlarged lymph nodes in the abdomen or pelvis. Vasculature: Aorta and IVC patent and normal in caliber. Abdominal wall: Normal appearance of the right mid abdominal loop ileostomy. No associated fluid collection or inflammatory change. Infiltration along the surgical incision site in the midline abdomen has improved since the prior exam through closure by secondary intention. Multiple nodular foci of infiltration of the anterior abdominal wall, some of which may represent small hematomas, likely from medication injection. Musculoskeletal: Degenerative changes of the spine. IMPRESSION: 1. Postsurgical changes of loop ileostomy with distal small bowel resection, cecectomy and ileocolic anastomosis. No bowel obstruction. No associated inflammatory change. 2. Multiple small hematomas in the anterior abdominal wall associated with medication injection. 3. Continued interval healing of the ventral midline surgical incision site. No focal fluid collection. 4. No acute intra-abdominal pathology. Electronically signed by: Everton Banks M.D. 11/15/2016 2:42 PM Dictated Date/Time: 11/15/2016 2:34 PM Laboratory Results 11/15/16 10:51 Red Blood Count 4.62, Mean Corpuscular Volume 93.7, Mean Corpuscular Hemoglobin 31.4, Mean Corpuscular Hemoglobin Concent 33.5, Mean Platelet Volume 9.8, Neutrophils (%) (Auto) 75.9, Lymphocytes (%) (Auto) 13.9, Monocytes (%) (Auto) 6.3, Eosinophils (%) (Auto) 2.7, Basophils (%) (Auto) 0.4, Neutrophils # (Auto) 5.58, Lymphocytes # (Auto) 1.02, Monocytes # (Auto) 0.46, Eosinophils # (Auto) 0.20, Basophils # (Auto) 0.03 11/15/16 10:51 Test 11/15/16 10:05 11/15/16 10:51 11/15/16 11:08 Urine Color YELLOW Urine Appearance CLEAR (CLEAR) Urine pH 5.5 (4.5-7.5) Urine Specific [place] 1.013 (1.000-1.030) Urine Protein NEG (NEG) Urine Glucose (UA) NEG (NEG) Urine Ketones NEG (NEG) Urine Occult Blood NEG (NEG) Urine Nitrite NEG (NEG) Urine Bilirubin NEG (NEG) Urine Urobilinogen NEG (NEG) Urine Leukocyte Esterase SMALL (NEG) Urine WBC (Auto) /hpf (0-5) Urine RBC (Auto) /hpf (0-4) Urine Hyaline Casts (Auto) /lpf (0-5) Urine Epithelial Cells (Auto) /lpf (0-5) Urine Bacteria (Auto) (NEG) Urine RBC 0-4 /hpf (0-4) Urine WBC 10-30 /hpf (0-5) Urine Epithelial Cells 10-20 /lpf (0-5) Urine Renal Cells 5-10 /lpf (FEW) Urine Bacteria 1+ (NEG) White Blood Count 7.35 K/uL (4.8-10.8) Red Blood Count 4.62 M/uL (4.2-5.4) Hemoglobin 14.5 g/dL (12.0-16.0) Hematocrit 43.3 % (37-47) Mean Corpuscular Volume 93.7 fL (80-100) Mean Corpuscular Hemoglobin 31.4 pg (25-34) Mean Corpuscular Hemoglobin Concent 33.5 g/dl (32-36) Platelet Count 205 K/uL (130-400) Mean Platelet Volume 9.8 fL (7.4-10.4) Neutrophils (%) (Auto) 75.9 % Lymphocytes (%) (Auto) 13.9 % Monocytes (%) (Auto) 6.3 % Eosinophils (%) (Auto) 2.7 % Basophils (%) (Auto) 0.4 % Neutrophils # (Auto) 5.58 K/uL (1.4-6.5) Lymphocytes # (Auto) 1.02 K/uL (1.2-3.4) Monocytes # (Auto) 0.46 K/uL (0.11-0.59) Eosinophils # (Auto) 0.20 K/uL (0-0.5) Basophils # (Auto) 0.03 K/uL (0-0.2) RDW Standard Deviation 48.1 fL (36.4-46.3) RDW Coefficient of Variation 14.1 % (11.5-14.5) Immature Granulocyte % (Auto) 0.8 % Immature Granulocyte # (Auto) 0.06 K/uL (0.00-0.02) Prothrombin Time 22.1 SECONDS (9.0-12.0) Prothromb Time International Ratio 2.0 (0.9-1.1) Activated Partial Thromboplast Time 37.0 SECONDS (21.0-31.0) Partial Thromboplastin Ratio 1.4 Anion Gap 8.0 mmol/L (3-11) Est Creatinine Clear Calc Drug Dose 81.5 ml/min Estimated GFR () 75.4 Estimated GFR (Non- 65.0 BUN/Creatinine Ratio 12.9 (10-20) Calcium Level 9.8 mg/dl (8.5-10.1) Magnesium Level 1.8 mg/dl (1.8-2.4) Total Bilirubin 0.3 mg/dl (0.2-1) Aspartate Amino Transf (AST/SGOT) 26 U/L (15-37) Alanine Aminotransferase (ALT/SGPT) 32 U/L (12-78) Alkaline Phosphatase 78 U/L (45-117) Total Creatine Kinase 28 U/L (26-192) Creatine Kinase MB < 0.5 ng/ml (0.5-3.6) Creatine Kinase MB Ratio (0-3.0) Troponin I < 0.015 ng/ml (0-0.045) Total Protein 6.9 gm/dl (6.4-8.2) Albumin 3.3 gm/dl (3.4-5.0) Globulin 3.6 gm/dl (2.5-4.0) Albumin/Globulin Ratio 0.9 (0.9-2) Lipase 154 U/L (73-393) Lactic Acid Level 1.8 mmol/L (0.4-2.0) Medications Administered Medications (Trade) Dose Ordered Sig/Rachael Route Start Time Stop Time Status Last Admin Dose Admin Morphine Sulfate (MoRPHine SULFATE INJ) 4 mg NOW STAT IV 11/15/16 09:39 11/15/16 09:42 DC 11/15/16 10:37 4 MG Ondansetron HCl (Zofran Inj) 4 mg NOW STAT IV 11/15/16 09:39 11/15/16 09:42 DC 11/15/16 10:36 4 MG Morphine Sulfate (MoRPHine SULFATE INJ) 4 mg NOW STAT IV 11/15/16 11:32 11/15/16 11:33 DC 11/15/16 11:37 4 MG Morphine Sulfate (MoRPHine SULFATE INJ) 4 mg NOW STAT IV 11/15/16 13:11 11/15/16 13:12 DC 11/15/16 13:39 4 MG Morphine Sulfate (MoRPHine SULFATE INJ) 4 mg NOW STAT IV 11/15/16 14:56 11/15/16 14:58 DC 11/15/16 15:21 4 MG Medical Decision Patient was seen and evaluated as above. She presents to us via ambulance for abdominal pain. Benefits versus risk of obtaining CT was discussed, and the decision was made to obtain a CT scan secondary to her being so afebrile, and her degree of pain and examination. She was given morphine for pain. She was given 4 mg 4. She was given fluids. She was given Zofran. CT reveals no acute process. My concern is that her abdomen exam continues to elicit pain, and she is a patient of which has been admitted in the past for complex etiology. Case was discussed with the attending physician, who recommends admission. I do with this is reasonable. At this time the patient will be admitted for further evaluation and management. Her EKG reveals normal sinus rhythm with first-degree AV block. There is question will change in the anterior leads, however her troponin at this time is negative. Her blood work is essentially negative. She'll be admitted for further evaluation and management. Please refer to further documentation regarding her stay. In evaluation treatment this patient following differential diagnoses were entertained: Pancreatitis, intra-abdominal abscess, acute abdomen, gallbladder etiology, pancreas etiology, among others. Impression Primary Impression: Abdominal pain Departure Information Dispostion Still a Patient Condition [facility]IR Referrals Oc Sesay PA-C (PCP) Forms Call Back Authorization, HOME CARE DOCUMENTATION FORM, IMPORTANT VISIT INFORMATION Patient Instructions [facility] Problem Qualifiers Primary Impression: Abdominal pain Abdominal location: right upper quadrant Qualified Codes: R10.11 - Right upper quadrant pain
[2016-11-15] MEDS: CIPROFLOXACIN / D5W 400 MG in PREMIXED IN D5W 200 ML IV SCH (19:21)
[2016-11-15] MEDS: ACETAMINOPHEN 325 MG TAB PO PRN (19:22)
[2016-11-15] MEDS: LOPERAMIDE HCL 2 MG CAP PO PRN (19:28)
[2016-11-15] MEDS ORDERED: WARFARIN SOD 2.5 MG TAB PO SCH (20:00)
[2016-11-16 00:15] VITALS: BP 110/72; PULSE 67; TEMP 36.8; O2SAT 98
[2016-11-16] MEDS ORDERED: NURSING DECISION MEDICATION ORDER SCH (00:45)
[2016-11-16] MEDS: ONDANSETRON INJ 2 MG/ML 2 ML VIAL IV PRN ×2 (02:07→09:11)
[2016-11-16] MEDS ORDERED: COUGH DROP (SUGAR FREE) LOZ 24 LOZ/1 BOX PO PRN (02:30)
[2016-11-16] MEDS: CIPROFLOXACIN / D5W 400 MG in PREMIXED IN D5W 200 ML IV SCH ×3 (06:10→18:31)
[2016-11-16 06:57] VITALS: BP 105/69; PULSE 61; TEMP 36.5; O2SAT 98
[2016-11-16 07:53] LABS: HEMATOCRIT 42.7 % (37-47); MEAN CELL VOLUME 93.6 fL (80-100); MEAN CORPUSCULAR HGB CONC 34.2 g/dl (32-36); MEAN PLATELET VOLUME 9.4 fL (7.4-10.4); PLATELET COUNT 217 K/uL (130-400); RED BLOOD COUNT 4.56 M/uL (4.2-5.4); WHITE BLOOD COUNT 7.22 K/uL (4.8-10.8)
[2016-11-16 08:00] VITALS: O2SAT 98
[2016-11-16 08:04] LABS: PROTHROMBIN TIME (PATIENT) 21.6 SECONDS (9.0-12.0)
[2016-11-16] MEDS: PANTOprazole SOD 40 MG TAB PO SCH (08:59)
[2016-11-16] MEDS: CYANOCOBALAMIN 500 MCG TAB (VIT B-12) PO SCH (09:00)
[2016-11-16] MEDS ORDERED: PROBIOTIC PRODUCT PO SCH (09:00)
[2016-11-16] MEDS: CHOLECALCIFEROL 1000 INTER.UNIT TAB PO SCH (09:00)
[2016-11-16] MEDS: NICOTINE 14 MG/24 HR TDSY TD SCH (09:01)
[2016-11-16] MEDS: ATORVASTATIN 20 MG TAB PO SCH (09:02)
[2016-11-16] MEDS: LORATADINE 10 MG TAB PO SCH (09:02)
[2016-11-16] MEDS: ACETAMINOPHEN 325 MG TAB PO PRN ×2 (09:12→18:37)
[2016-11-16] MEDS: LOPERAMIDE HCL 2 MG CAP PO PRN ×2 (12:19→20:44)
[2016-11-16] MEDS ORDERED: CETIRIZINE HCL 10 MG TAB PO ONE (13:45)
[2016-11-16 15:02] VITALS: BP 97/60; PULSE 62; TEMP 36.7; O2SAT 97
--- NOTE | 2016-11-16 15:02 | Progress Note ---
Subjective Date of Service: Nov 16, 2016. Subjective Pt evaluation today including: conversation w/ patient, conversation w/ family , physical exam, chart review, lab review, review of studies, review of inpatient medication list Patient was tearful when I walk in, she obviously watery anxious, reported a lot of postnasal drainage is possible from sinusitis, also report has never tingling and numbness, which she has it before, next also report possible urinary tract infection with dysuria and frequency is, Report has good ileostomy output with yellow stool, no other complaint Problem List Medical Problems: (1) Abdominal pain Status: Acute (2) JULIETTE (acute kidney injury) Status: Acute (3) Dehydration Status: Acute (4) Diarrhea Status: Acute (5) Epistaxis Status: Acute (6) Fever Status: Acute (7) Fistula of intestine, excluding rectum and anus Status: Acute (8) Headache Status: Acute (9) Hyponatremia Status: Acute (10) Ileus Status: Acute (11) Inflammatory bowel disease Status: Acute (12) Left sided chest pain Status: Acute (13) Multiple pulmonary emboli Status: Acute (14) Optic neuritis Status: Acute (15) Partial small bowel obstruction Status: Acute (16) Rectal bleed Status: Acute (17) RLQ abdominal pain Status: Acute (18) RLQ abdominal pain Status: Acute (19) Small bowel obstruction Status: Acute (20) Small bowel obstruction Status: Acute (21) Substernal chest pain Status: Acute (22) Subtherapeutic international normalized ratio (INR) Status: Acute (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 (24) Visual disturbance Status: Acute Review of Systems Constitutional: + weakness, No see HPI, No fever, No chills, No sweats, No weight loss, No fatigue, No problem reported Eyes: No see HPI, No worsening of vision, No eye pain, No redness, No discharge , No diplopia, No problem reported ENT: No see HPI, No hearing loss, No unusual epistaxis, No nasal symptoms, No sore throat, No tinnitus, No dental problems, No trouble swallowing, No problem reported Respiratory: No see HPI, No cough, No sputum, No wheezing, No shortness of breath, No dyspnea on exertion, No dyspnea at rest, No hemoptysis, No problem reported Cardiac: No see HPI, No chest pain, No orthopnea, No PND, No edema, No claudication, No palpitations, No problem reported Breast: No see HPI, No breast lump, No change in shape, No nipple discharge, No breast pain, No problem reported Abdomen: + problem reported (right upper flank mild pain, is better, ileostomy bag in place, has good fair amount likely type yellow stool), No see HPI, No pain, No nausea, No vomiting, No diarrhea, No constipation, No GI bleeding Musculoskeletal: No see HPI, No joint pain, No muscle pain, No swelling, No calf pain, No problem reported Female : + see HPI, No urinary frequency, No vaginal discharge, No problem reported Psychiatric: No see HPI, No depression symptoms, No anhedonism, No anxiety, No insomnia, No substance abuse, No problem reported Heme: No see HPI, No abnormal bleeding/bruising, No clotting problems, No swollen lymph nodes, No night sweats, No problem reported Endo: No see HPI, No fatigue, No excessive thirst, No excessive urination, No problem reported Skin: No see HPI, No rash, No itch, No new/changing skin lesions, No color change, No bleeding, No problem reported Objective Vital Signs Date Time Temp Pulse Resp B/P (MAP) Pulse Ox O2 Delivery O2 Flow Rate FiO2 11/16/16 08:00 98 Room Air 11/16/16 06:57 36.5 61 20 105/69 (81) 98 Room Air 11/16/16 00:15 36.8 67 18 110/72 (85) 98 Room Air 11/16/16 00:00 Room Air 11/15/16 17:54 82 18 96 11/15/16 17:30 36.8 67 24 126/82 (97) 97 Room Air 11/15/16 16:57 Room Air Physical Exam General Appearance: WD/WN, no apparent distress, + obese Eyes: normal inspection, PERRL, EOMI, sclerae normal ENT: normal ENT inspection, hearing grossly normal, pharynx normal Neck: supple, no adenopathy, thyroid normal, no JVD, no carotid bruits, trachea midline Respiratory/Chest: chest non-tender, normal breath sounds, no respiratory distress, no accessory muscle use, + decreased breath sounds Cardiovascular: regular rate, rhythm, no edema, no gallop, no JVD, no murmur Abdomen: normal bowel sounds, non tender, soft, no organomegaly, no pulsatile mass, + pertinent finding (ileostomy in place with yellow and liquis stool) Extremities: normal range of motion, non-tender, normal inspection, no pedal edema, no calf tenderness, normal capillary refill, pelvis stable Neurologic/Psychiatric: nurse discharge II-XII nml as tested, no motor/sensory deficits, alert, normal mood/affect, oriented x 3 Skin: normal color, warm/dry, no rash Lymphatic: no adenopathy Laboratory Results Last 24 Hours Test 11/16/16 07:13 11/16/16 14:35 White Blood Count 7.22 K/uL Red Blood Count 4.56 M/uL Hemoglobin 14.6 g/dL Hematocrit 42.7 % Mean Corpuscular Volume 93.6 fL Mean Corpuscular Hemoglobin 32.0 pg Mean Corpuscular Hemoglobin Concent 34.2 g/dl RDW Standard Deviation 47.9 fL RDW Coefficient of Variation 14.0 % Platelet Count 217 K/uL Mean Platelet Volume 9.4 fL Prothrombin Time 21.6 SECONDS Prothromb Time International Ratio 2.0 Assessment and Plan 61 y/o F who was admitted on 11/16/2016 for observation on 11/15 for pain control Abd/right flank pain: Uncertain etiology--UTI vs GB path vs scar tissue seem most likely CT AP noted for no issues with recent surgical site or ileostomy, no obstruction noted UA + for leuk est, neg for nitrites making UTI less likely, and the culture report socially category of the bacteria grows likely contamination, follow-up Blood cx pending Possible allergic rhinitis, start tach History of Crohn's: recent resection at [facility] [place] 09/03/16, stable Hx of PE: therapeutic on coumadin, INR is therapeutic, continue current care Other: Full code. Pt was quite clear that she does not want prolonged life support. "If [facility] is trying that hard to take me, I don't want to fight it." Therapeutic on coumadin for DVT proph Continued [facility] stay due to: multiple IV medications needed Discharge planning: home
[2016-11-16] MEDS ORDERED: WARFARIN SOD 5 MG TAB PO SCH (16:00)
[2016-11-16] MEDS ORDERED: NURSING VERBAL MED ORDER ONE (18:30)
[2016-11-16] MEDS: MICONAZOLE NITRATE 2% VAG CR 45 GM TUBE PV SCH (20:42)
[2016-11-16 23:45] VITALS: BP 128/85; PULSE 57; TEMP 36.4; O2SAT 97
[2016-11-17 07:12] VITALS: BP 111/72; PULSE 59; TEMP 36.5; O2SAT 98
[2016-11-17 07:17] LABS: BASO % 0.5 %; BASO ABS # 0.03 K/uL (0-0.2); COMPLETE YES; EOS % 5.6 %; HEMATOCRIT 39.8 % (37-47); IG% 1.2 %; MEAN CELL VOLUME 91.1 fL (80-100); MEAN CORPUSCULAR HEMOGLOBIN 31.4 pg (25-34); MEAN CORPUSCULAR HGB CONC 34.4 g/dl (32-36); MEAN PLATELET VOLUME 9.2 fL (7.4-10.4); MONO % 11.4 %; NEUT % 44.3 %; PLATELET COUNT 196 K/uL (130-400); RED BLOOD COUNT 4.37 M/uL (4.2-5.4); WHITE BLOOD COUNT 5.68 K/uL (4.8-10.8)
[2016-11-17 07:24] LABS: INR 2.3 (0.9-1.1); PROTHROMBIN TIME (PATIENT) 25.1 SECONDS (9.0-12.0)
[2016-11-17] MEDS: NICOTINE 14 MG/24 HR TDSY TD SCH (07:43)
[2016-11-17] MEDS: CIPROFLOXACIN / D5W 400 MG in PREMIXED IN D5W 200 ML IV SCH (07:43)
[2016-11-17] MEDS: LORATADINE 10 MG TAB PO SCH (07:44)
[2016-11-17] MEDS: CHOLECALCIFEROL 1000 INTER.UNIT TAB PO SCH (07:44)
[2016-11-17] MEDS: CYANOCOBALAMIN 500 MCG TAB (VIT B-12) PO SCH (07:44)
[2016-11-17] MEDS: PANTOprazole SOD 40 MG TAB PO SCH (07:44)
[2016-11-17] MEDS: ATORVASTATIN 20 MG TAB PO SCH (07:44)
[2016-11-17] MEDS: MICONAZOLE NITRATE 2% VAG CR 45 GM TUBE PV SCH (07:45)
[2016-11-17 08:06] LABS: BUN/CREATININE RATIO 15.1 (10-20); CALCIUM 8.8 mg/dl (8.5-10.1); CREATININE 1.1 mg/dl (0.60-1.20); MAGNESIUM 1.8 mg/dl (1.8-2.4); PHOSPHORUS 3.3 mg/dl (2.5-4.9); POTASSIUM 3.8 mmol/L (3.5-5.1)
[2016-11-17] MEDS ORDERED: CETIRIZINE HCL 10 MG TAB PO SCH (09:00)
[2016-11-17] MEDS ORDERED: ZYR10 PO (12:37)
[2016-11-17] MEDS ORDERED: NICO14DI5 TD (12:37)
--- NOTE | 2016-11-17 12:37 | Discharge Instructions ---
Discharge Instructions Date of Service Nov 17, 2016. Admission Reason for Admission: Abdominal Pain Discharge Discharge Diagnosis / Problem: Abd/right flank pain likely from scar of previous surgery Discharge Goals Goal(s): Decrease discomfort, Improve function, Increase independence, Improve disease control, Improve nutritional status, Learn about illness, Diagnostic testing, Therapeutic intervention, Prevent Disease Progression, Specific goals Activity Recommendations Activity Limitations: resume your previous activity . Instructions / Follow-Up Instructions / Follow-Up You have Abd/right flank pain: Uncertain likely from scar of previous procedure etiology--UTI vs GB path vs scar tissue seem most likely Possible allergic rhinitis continue to attack History of Crohn's: recent resection at [facility] [place] 09/03/16, stable, follow-up with [facility] as instructed, we are helping you in setting up appointment with [facility] Hx of PE: therapeutic on coumadin, INR is therapeutic, you need to continue monitor Coumadin level with your primary care physician Your sodium is at 130 today you need to follow up with your PCP about this, - you need to follow up with your primary care physician in 1 week, - take medication as instructed, never overdose or any misuse, or take with alcohol, because misuse of medicine may cause organ damage or , call your primary care physician if have questions of medicaitons. - call your primary care physician OR go to local emergency room if has any fever/chill, chest pain, shortness of breathing, nausea/vomiting/abdominal pain , facial droop/slurry speech/local weakness, or if has any questions. - fall precaution - diet as instructed - you need to follow up with your subspecialists - you should understand that it is important to follow up the above instruction , and "not following the above instruction" may cause delayed or missed care of your medical conditions which may cause permanent organ damage and even . Current Hospital Diet Patient's current hospital diet: Regular Diet Discharge Diet Recommended Diet: Regular Diet Pending Studies Studies pending at discharge: no Laboratory Results Meds Administered (Past 24Hrs) Medications (Trade) Dose Ordered Sig/Rachael Route Start Time Stop Time Status Last Admin Dose Admin Morphine Sulfate (MoRPHine SULFATE INJ) 4 mg NOW STAT IV 11/15/16 13:11 11/15/16 13:12 DC 11/15/16 13:39 4 MG Morphine Sulfate (MoRPHine SULFATE INJ) 4 mg NOW STAT IV 11/15/16 14:56 11/15/16 14:58 DC 11/15/16 15:21 4 MG Acetaminophen (Tylenol Tab) 650 mg Q4H PRN PO 11/15/16 15:45 12/15/16 15:44 11/16/16 18:37 650 MG Ondansetron HCl (Zofran Inj) 4 mg Q6H PRN IV 11/15/16 15:45 12/15/16 15:44 11/16/16 09:11 4 MG Ciprofloxacin/ Dextrose 400 mg/ Prmx 200 ml @ 100 mls/hr Q12H IV 11/15/16 19:00 11/25/16 18:59 11/17/16 07:43 100 MLS/HR Atorvastatin Calcium (Lipitor Tab) 20 mg DAILY PO 11/16/16 09:00 12/16/16 08:59 11/17/16 07:44 20 MG Loratadine (Claritin Tab) 10 mg DAILY PO 11/16/16 09:00 12/16/16 08:59 11/17/16 07:44 10 MG Pantoprazole Sodium (Protonix Tab) 40 mg QAM PO 11/16/16 09:00 12/16/16 08:59 11/17/16 07:44 40 MG Prednisone (PredniSONE TAB) 5 mg DAILY PO 11/16/16 09:00 12/16/16 08:59 11/17/16 07:44 5 MG Warfarin Sodium (Coumadin Tab) 2.5 mg SuTuThSa@1600 PO 11/15/16 20:00 12/15/16 19:59 11/15/16 20:05 2.5 MG Warfarin Sodium (Coumadin Tab) 5 mg MoWeFr@1600 PO 11/16/16 16:00 12/16/16 15:59 11/16/16 16:28 5 MG Cholecalciferol (Vitamin D Tab) 2,000 inter.unit QAM PO 11/16/16 09:00 12/16/16 08:59 11/17/16 07:44 2,000 INTER.UNIT Cyanocobalamin (Vitamin B-12 Tab) 1,000 mcg DAILY PO 11/16/16 09:00 12/16/16 08:59 11/17/16 07:44 1,000 MCG Loperamide HCl (Imodium Cap) 2 mg QID PRN PO 11/15/16 17:00 12/15/16 16:59 11/16/16 20:44 2 MG Nicotine (Nicoderm Cq 14MG Patch) 1 patch QAM TD 11/16/16 09:00 12/16/16 08:59 11/17/16 07:43 1 PATCH Miscellaneous (Remove Nicoderm Patch) 1 ea HS N/A 11/15/16 21:00 12/15/16 20:59 11/16/16 20:42 1 EA Morphine Sulfate (MoRPHine SULFATE INJ) 1 mg Q2H PRN IV 11/15/16 16:15 11/29/16 16:14 11/15/16 19:29 1 MG Ketorolac Tromethamine (Toradol Inj) 30 mg Q6H PRN IV 11/15/16 19:15 11/20/16 19:14 11/16/16 06:10 30 MG Menthol (Nice Earl) 1 earl PRN PRN PO 11/16/16 02:30 12/16/16 02:29 11/16/16 02:26 1 EARL Cetirizine HCl (zyrTEC TAB) 10 mg NOW ONCE PO 11/16/16 13:45 11/16/16 13:46 DC 11/16/16 14:21 10 MG Cetirizine HCl (zyrTEC TAB) 10 mg QAM PO 11/17/16 09:00 12/17/16 08:59 11/17/16 07:44 10 MG Miconazole Nitrate (Monistat 7 Vag Crm) 1 appln DAILY PV 11/16/16 19:00 11/23/16 18:59 11/17/16 07:45 1 APPLN Medical Emergencies . Who to Call and When: Medical Emergencies: If at any time you feel your situation is an emergency, please call 911 immediately. . Non-Emergent Contact Non-Emergency issues call your: Primary Care Provider, Diagnostic Medical Sonographer Call Non-Emergent contact if: you have a fever . . "Provider Documentation" section prepared by Evan Barnard. . VTE Core Measure Inpt VTE Proph given/why not?: Warfarin (Coumadin)
--- NOTE | 2016-11-17 12:50 | Discharge Summary ---
Discharge Summary Date of Service Nov 17, 2016. Discharge Summary Admission Date: Nov 15, 2016 at 15:49 Discharge Date: Nov 17, 2016 Discharge Disposition: Home with services Principal Diagnosis: Abd/right flank pain: Uncertain likely from scar of previous procedure Problems/Secondary Diagnoses: Possible sinusitis Procedures: No Consultations: No Medication Reconciliation New Medications: Cetirizine HCl (All Day Allergy) 10 Mg Tab 10 MG PO QAM for 14 Days, #14 TAB Nicotine (Nicoderm Cq 14MG Patch) 14 Mg/24 Hr Dis 1 PATCH TD QAM for 30 Days Continued Medications: Acetaminophen (Tylenol) 325 Mg Tab 650 MG PO Q4H PRN for Pain, TAB Atorvastatin (Lipitor) 20 Mg Tab 20 MG PO DAILY, TAB Cholecalciferol (Vitamin D3) 2,000 Unit Cap 2000 UNITS PO QAM for 90 Days, CAP 3 Refills Cyanocobalamin (Vitamin B12) 1,000 Mcg Tab 1000 MCG PO DAILY Loperamide Hcl (Imodium A-D) Unknown Strength Liq 10 MG PO QID Pantoprazole (Protonix) 40 Mg Tab 40 MG PO QAM, #30 TAB Prednisone (Prednisone) 5 Mg Tab 5 MG PO DAILY W/FOOD. for 7 Days, TAB Probiotic Product (Digestive Advantage Probi) 1 Chw Chw 1 CAP PO DAILY Pseudoephedrine-Guaifenesin (Mucinex D) 1 Tab Tab 2 TAB PO HS, TAB Warfarin Sod (Jantoven) 5 Mg Tab 5 MG PO MWF, TAB Warfarin Sod (Jantoven) 2.5 Mg Tab 2.5 MG PO 4XWK, TAB WEDNESDAY, WEDNESDAY, WEDNESDAY AND WEDNESDAY Discontinued Medications: Loratadine (Claritin) 10 Mg Tab 10 MG PO DAILY, TAB Discharge Exam Out of bed to chair, eating drinking., Still have some right upper quadrant pain, but is generally feeling better, still reports some nose congestion and drainages from nose , no fever and chill, Review of Systems: Constitutional: No fever, No chills, No sweats, No weight loss, No weakness , No fatigue, No problem reported Eyes: No worsening of vision, No eye pain, No redness, No discharge, No diplopia, No problem reported Respiratory: No cough, No sputum, No wheezing, No shortness of breath, No dyspnea on exertion, No dyspnea at rest, No hemoptysis, No problem reported Cardiovascular: No chest pain, No orthopnea, No PND, No edema, No claudication, No palpitations, No problem reported Abdomen: + pain Musculoskeletal: No joint pain, No muscle pain, No swelling, No calf pain, No problem reported Genitourinary - Female: No dysuria, No urinary frequency, No urinary urgency , No urinary incontinence, No urinary retention, No hematuria, No dysmenorrhea, No menorrhagia, No metrorrhagia, No rash, No vaginal bleeding, No vaginal discharge, No vaginal itching, No vulvodynia, No , No problem reported Neurologic: No memory loss, No paralysis, No weakness, No numbness/tingling , No vertigo, No balance problems, No problem reported Psychiatric: No depression symptoms, No anhedonism, No anxiety, No insomnia , No substance abuse, No problem reported Endocrine: No fatigue, No excessive thirst, No excessive urination, No problem reported Hematologic / Lymphatic: No abnormal bleeding/bruising, No clotting problems , No swollen lymph nodes, No night sweats, No problem reported Integumentary: No rash, No itch, No new/changing skin lesions, No color change, No bleeding, No problem reported Physical Exam: General Appearance: WD/WN, no apparent distress, + obese Eyes: normal inspection, PERRL ENT: normal ENT inspection, TMs normal Neck: supple, no adenopathy Respiratory/Chest: chest non-tender, no respiratory distress, no accessory muscle use, + decreased breath sounds Cardiovascular: regular rate, rhythm, no edema, no gallop Abdomen / GI: normal bowel sounds, non tender, soft, no organomegaly Extremities: normal inspection, no calf tenderness, normal capillary refill Neurologic/Psychiatric: pecan huller II-XII nml as tested, no motor/sensory deficits , alert, normal mood/affect, normal reflexes, oriented x 3 Skin: normal color, warm/dry, no rash Hospital Course 61 y/o F who was admitted on 11/16/2016 for observation on 11/15 for pain control Abd/right flank pain: Uncertain , likely from scar from previous surgery etiology--has rule out UTI , weighs study was no UTI, there was contamination urine culture There was no evidence of gallbladder disease per CT studies of abdomen and near function test Therefore scar tissue causing the pain is seem most likely CT AP noted for no issues with recent surgical site or ileostomy, no obstruction noted UA + for leuk est, neg for nitrites making UTI less likely, and the culture report socially category of the bacteria grows likely contamination, follow-up Blood cx , which has been negative for 48 hours Possible allergic rhinitis, start Zyrtec History of Crohn's: [place] [facility] [place], stable, advised to follow- up with [facility] as instructed Hx of PE: therapeutic on coumadin, INR is therapeutic, continue current care Other: Full code. Pt was quite clear that she does not want prolonged life support. "If [facility] is trying that hard to take me, I don't want to fight it." Therapeutic on coumadin for DVT proph Discharge instruction You have Abd/right flank pain: Uncertain likely from scar of previous procedure etiology--UTI vs GB path vs scar tissue seem most likely Possible allergic rhinitis continue to attack History of Crohn's: recent [place] [facility], stable, follow-up with [facility] as instructed, we [facility] Hx of PE: therapeutic on coumadin, INR is therapeutic, you need to continue monitor Coumadin level with your primary care physician Your sodium is at 130 today you need to follow up with your PCP about this, - you need to follow up with your primary care physician in 1 week, - take medication as instructed, never overdose or any misuse, or take with alcohol, because misuse of medicine may cause organ damage or , call your primary care physician if have questions of medicaitons. - call your primary care physician OR go to local emergency room if has any fever/chill, chest pain, shortness of breathing, nausea/vomiting/abdominal pain , facial droop/slurry speech/local weakness, or if has any questions. - fall precaution - diet as instructed - you need to follow up with your subspecialists - you should understand that it is important to follow up the above instruction , and "not following the above instruction" may cause delayed or missed care of your medical conditions which may cause permanent organ damage and even . Total Time Spent: Greater than 30 minutes This includes examination of the patient, discharge planning, medication reconciliation, and communication with other providers. Discharge Instructions Please refer to the electronic Patient Visit Report (Discharge Instructions) for additional information. Additional Copies To Oc Sesay PA-C
[2016-11-17 12:55] VITALS: BP 111/72; PULSE 59; TEMP 36.5; O2SAT 98
== END 2016-11-17 17:55 | disposition home health service (06) ==
LOC: C.EDB 09:05 → EDBD 09:05 → C.MED 15:49 → ENRESERV 16:40 → C.MS2W 11-17 05:52
PROVIDERS: ADMIT Family Medicine; ATTEND Hospitalist
DX: R10.11 Right upper quadrant pain (principal); Z93.3 Colostomy status; Z93.2 Ileostomy status; Z86.711 Personal history of pulmonary embolism; F17.200 Nicotine dependence, unspecified, uncomplicated; Z79.01 Long term (current) use of anticoagulants; Z79.899 Other long term (current) drug therapy; Z87.19 Personal history of other diseases of the digestive system

== ENCOUNTER → 2017-01-19 | Outpatient (CLI) | payer OTHER ==
[~2017-01-19] MED LIST changes: -CLR10 PO; -LOPE-5 PO; +LOPELIQ6 PO; +NICO14DI5 TD; -OXYC1TAB3 PO; -PRD5 PO; +PSEU60TA80 PO; -TRAZ50TA35 PO; +WARF2.5T8 PO; -WARF7.5T4 PO; +ZYR10 PO
[2017-01-19 10:14] LABS: BASO % 0.6 %; BASO ABS # 0.03 K/uL (0-0.2); COMPLETE YES; EOS % 2.8 %; HEMATOCRIT 42.6 % (37-47); IG% 0.4 %; LYMPH % 26.1 %; LYMPH ABS # 1.39 K/uL (1.2-3.4); MEAN CELL VOLUME 93.6 fL (80-100); MEAN CORPUSCULAR HEMOGLOBIN 32.5 pg (25-34); MEAN CORPUSCULAR HGB CONC 34.7 g/dl (32-36); MEAN PLATELET VOLUME 10.2 fL (7.4-10.4); MONO % 7.3 %; NEUT % 62.8 %; PLATELET COUNT 198 K/uL (130-400); RED BLOOD COUNT 4.55 M/uL (4.2-5.4); WHITE BLOOD COUNT 5.32 K/uL (4.8-10.8)
[2017-01-19 10:24] LABS: INR 1.9 (0.9-1.1); PROTHROMBIN TIME (PATIENT) 19.2 SECONDS (9.0-12.0)
[2017-01-19 10:39] LABS: ALT/SGPT 19 U/L (12-78); BLOOD UREA NITROGEN 16 mg/dl (7-18); BUN/CREATININE RATIO 16.8 (10-20); C-REACTIVE PROTEIN < 0.29 mg/dl (0-0.29); CALCIUM 9.4 mg/dl (8.5-10.1); CARBON DIOXIDE 23 mmol/L (21-32); CHLORIDE 107 mmol/L (98-107); CREATININE 0.94 mg/dl (0.60-1.20); GLUCOSE 85 mg/dl (70-99); SODIUM 138 mmol/L (136-145)
[2017-01-19 10:42] LABS: ALB/GLOB RATIO 0.9 (0.9-2); ALKALINE PHOSPHATASE 131 U/L (45-117); AST/SGOT 12 U/L (15-37)
== END | disposition home or self-care (01) ==
LOC: C.LAB1850 09:03
PROVIDERS: ATTEND Physician Assistant
DX: I26.99 Other pulmonary embolism without acute cor pulmonale (principal); K50.00 Crohn's disease of small intestine without complications

== ENCOUNTER → 2017-02-16 | Day surgery (SDC) | payer OTHER ==
[2017-01-25 10:06] VITALS: Ht 167.6 cm; Wt 120.5 kg
[~2017-02-16] VITALS: Ht 167.6 cm; Wt 120.5 kg
[~2017-02-16] MED LIST changes: -ACET-1175 PO; +ADAL40KI INJ; -ATOR-22 PO; +ATOR-54 PO; +ATROPINE SULFATE 0.1 MG/ML 5ML SYR IV PRN; -CHOL2000 PO; +CLR10 PO; +EpHEDrine SULFATE INJ 50 MG/ML AMP IV PRN; +LIDOCAINE HCL 2% 2 ML VIAL (20MG/ML) ONE; +MISCCAP80 PO; +MONT1TAB3 PO; -NICO14DI5 TD; +ONDA4TAB46 PO; -PRED-301 PO; -PROB1CHW9 PO; +PROPOFOL IV EMULSION 10 MG/ML 20 ML VIAL IV ONE; -PSEU60TA80 PO; +SODIUM CHLORIDE 0.9% 500ML 500 ML IV ONE; +TRAM-10 PO; +TRAZ50TA35 PO; +VITAMIN D PO; -ZYR10 PO
[2017-02-16 12:36] LABS: INR 1.8 (0.9-1.1)
--- NOTE | 2017-02-16 12:47 | Endo History and Physical ---
History & Physical Date of Service: Feb 16, 2017. Chief Complaint: Crohn's disease Referring Physician: Dr. Velma Aceves History of Present Illness 61 yo CF who presents for colonoscopy secondary to Crohn's Disease. Past Surgical History Hx Cardiac Surgery: No Hx Internal Defibrillator: No Hx Pacemaker: No Hx Abdominal Surgery: Yes (TUBAL LIGATION, COLON RESECTION WITH ILEOSTOMY) Hx of Implantable Prosthesis: No Hx Post-Op Nausea and Vomiting: No Hx Cancer Surgery: No Hx Thoracic Surgery: No Hx Orthopedic: No Hx Urinary Tract Surgery: No Family History IBD Social History Smoking Status: Current Some Day Smoker Hx Substance Use: No Hx Alcohol Use: No Allergies Coded Allergies: No Known Allergies (Verified , 02/16/17) Current Medications Reported Home Medications Medications Dose Route/Sig Max Daily Dose Days Date Category Dose Instructions Ultram (Tramadol HCl) 50 Mg Tab 50 Mg PO Q8H PRN 01/25/17 Reported Trazodone (Trazodone HCl) 50 Mg Tab 50 Mg PO DAILY PRN 01/25/17 Reported Zofran (Ondansetron HCl) 4 Mg Tab 4 Mg PO Q8H PRN 01/25/17 Reported [Vitamin D] 1 Tab PO MONTHLY 01/25/17 Reported Probiotic (Probiotic Product) 1 Cap Cap 1 Cap PO QAM 01/25/17 Reported Lipitor (Atorvastatin) 20 Mg Tab 20 Mg PO QAM 01/25/17 Reported Singulair (Montelukast Sodium) 10 Mg Tab 10 Mg PO QAM 01/25/17 Reported Claritin (Loratadine) 10 Mg Tab 10 Mg PO QAM 01/25/17 Reported Protonix (Pantoprazole Sodium) 40 Mg Tab 40 Mg PO QAM 01/25/17 Reported Vitamin B12 (Cyanocobalamin) 1,000 Mcg Tab 1 Tab PO QAM 01/25/17 Reported Humira Pen (Adalimumab) 40 Mg/0.8 Ml Kit 1 Dose INJ [id number] 01/25/17 Reported Imodium A-D (Loperamide Hcl) Unknown Strength Liq 10 Mg PO QID 11/15/16 Reported Jantoven (Warfarin Sodium) 2.5 Mg Tab 2.5 Mg PO 4XWK 11/15/16 Reported WEDNESDAY, WEDNESDAY, WEDNESDAY AND WEDNESDAY Jantoven (Warfarin Sodium) 5 Mg Tab 5 Mg PO MWF 09/26/16 Reported Vital Signs Weight (Kilograms): 120.45 Height (Feet): 5 Height (Inches): 6 Date Time Temp Pulse Resp B/P (MAP) Pulse Ox O2 Delivery O2 Flow Rate FiO2 02/16/17 11:23 36.9 74 20 102/68 (79) 98 Room Air Physical Exam General Appearance: WD/WN, no apparent distress Respiratory/Chest: Auscultation: breath sounds normal Cardiovascular: Heart Auscultation: RRR Abdomen: Bowel Sounds: normal Inspection & Palpation: soft, non-distended, no tenderness, guarding & rebound Assessment and Plan Assessment: 61 yo CF who presents for colonoscopy secondary to Crohn's Disease. Plan: Proceed with colonoscopy.
--- NOTE | 2017-02-16 13:23 | Discharge Instructions ---
Endoscopy Patient Instructions Date / Procedure(s) Performed Feb 16, 2017. Colonoscopy Allergy Information Coded Allergies: No Known Allergies (Verified , 02/16/17) Discharge Date / Findings Feb 16, 2017. Normal Ileostomy Normal Rectum Medication Instructions Stopped Medication(s): last dose coumadin yesterday at 1700 OK to resume all medications today as prescribed Reported Home Medications Medications Dose Route/Sig Max Daily Dose Days Date Category Dose Instructions Ultram (Tramadol HCl) 50 Mg Tab 50 Mg PO Q8H PRN 01/25/17 Reported Trazodone (Trazodone HCl) 50 Mg Tab 50 Mg PO DAILY PRN 01/25/17 Reported Zofran (Ondansetron HCl) 4 Mg Tab 4 Mg PO Q8H PRN 01/25/17 Reported [Vitamin D] 1 Tab PO MONTHLY 01/25/17 Reported Probiotic (Probiotic Product) 1 Cap Cap 1 Cap PO QAM 01/25/17 Reported Lipitor (Atorvastatin) 20 Mg Tab 20 Mg PO QAM 01/25/17 Reported Singulair (Montelukast Sodium) 10 Mg Tab 10 Mg PO QAM 01/25/17 Reported Claritin (Loratadine) 10 Mg Tab 10 Mg PO QAM 01/25/17 Reported Protonix (Pantoprazole Sodium) 40 Mg Tab 40 Mg PO QAM 01/25/17 Reported Vitamin B12 (Cyanocobalamin) 1,000 Mcg Tab 1 Tab PO QAM 01/25/17 Reported Humira Pen (Adalimumab) 40 Mg/0.8 Ml Kit 1 Dose INJ [id number] 01/25/17 Reported Imodium A-D (Loperamide Hcl) Unknown Strength Liq 10 Mg PO QID 11/15/16 Reported Jantoven (Warfarin Sodium) 2.5 Mg Tab 2.5 Mg PO 4XWK 11/15/16 Reported WEDNESDAY, WEDNESDAY, WEDNESDAY AND WEDNESDAY Jantoven (Warfarin Sodium) 5 Mg Tab 5 Mg PO MWF 09/26/16 Reported Provider Instructions Activity Restrictions - No exercising or heavy lifting for 24 hours. - Do not drink alcohol the day of the procedure. - Do not drive a car or operate machinery until the day after the procedure. - Do not make any important decisions or sign important papers in 24 hours after the procedure. Following Day: - Return to full activity which may include returning to work/school. Diet Start your diet with liquids and light foods (jello, soup, juice, toast). Then eat your usual diet if not nauseated. Treatment For Common After Affects For mild abdominal pain, bloating, or excessive gas: - Rest - Eat lightly - Lie on right side Follow-Up Information Follow-up with Dr. Velma Aceves as scheduled Anesthesia Information What You Should Know You have had a procedure that required some medicine to reduce anxiety and discomfort. This treatment is called moderate sedation. After receiving the treatment, you may be sleepy, but you will be able to breathe on your own. The effects of the treatment may last for several hours. Follow these instructions along with Activity/Diet recommendations noted above: * Do NOT do anything where dizziness or clumsiness would be dangerous. * Rest quietly at home today, then you can be up and about tomorrow. * Have a responsible person stay with you the rest of today. * You may have had an I.V. today. If so, you may take the dressing off later today. Recommendations Call your doctor if: * Trouble breathing * Continuous vomiting for more than 24 hours * Temperature above 101 degrees * Severe abdominal pain or bloating * Pain not relieved by pain medicine ordered * There is increased drainage or redness from any incision * A large amount of rectal bleeding greater than 2-3 tablespoons. (If you had a polyp/s removed or have hemorrhoids, a small amount of blood - from the rectum is to be expected.) * You have any unanswered questions or concerns. IN THE EVENT OF A SERIOUS EMERGENCY, GO TO THE NEAREST EMERGENCY ROOM Your discharge instructions were prepared by provider Ulices Desir. Patient Instructions Signature Page Florencia Freeman Patient (or Guardian) Signature/Date: I have read and understand the instructions given to me by my caregivers. Caregiver/RN/Doctor Signature/Date: The above-named patient and/or guardian has received patient instructions on this date. + Original Patient Signature Page (only) stays with chart. Please make copy for patient.
--- NOTE | 2017-02-16 13:29 | Anesthesiology Progress Note ---
Anesthesia Post Op Note Date & Time Feb 16, 2017 at 13:29 Vital Signs Pain Intensity: 5 Vital Signs Past 12 Hours Date Time Temp Pulse Resp B/P (MAP) Pulse Ox O2 Delivery O2 Flow Rate FiO2 02/16/17 11:23 36.9 74 20 102/68 (79) 98 Room Air Notes Mental Status: alert / awake / arousable, participated in evaluation Pt Amnestic to Procedure: Yes Nausea / Vomiting: adequately controlled Pain: adequately controlled Airway Patency, RR, SpO2: stable & adequate BP & HR: stable & adequate Hydration State: stable & adequate Anesthetic Complications: no major complications apparent
--- NOTE | 2017-02-16 13:34 | GI REPORT ---
Procedure Date: 02/16/2017 11:37 AM Procedure: Ileoscopy Indications: History of total colectomy Medicines: Monitored Anesthesia Care Complications: No immediate complications. Estimated Blood Loss: Estimated blood loss: none. Procedure: Pre-Anesthesia Assessment: - Prior to the procedure, a History and Physical was performed, and patient medications and allergies were reviewed. The patient's tolerance of previous anesthesia was also reviewed. The risks and benefits of the procedure and the sedation options and risks were discussed with the patient. All questions were answered, and informed consent was obtained. Prior Anticoagulants: The patient has taken Coumadin (warfarin), last dose was 1 day prior to procedure. ASA Grade Assessment: III - A patient with severe systemic disease. After reviewing the risks and benefits, the patient was deemed in satisfactory condition to undergo the procedure. After I obtained informed consent, the scope was passed under direct vision. Throughout the procedure, the patient's blood pressure, pulse, and oxygen saturations were monitored continuously. The Scope was introduced through the anus and advanced to the mid ileum. After I obtained informed consent, the scope was passed under direct vision. Throughout the procedure, the patient's blood pressure, pulse, and oxygen saturations were monitored continuously.The ileoscopy was performed without difficulty. The patient tolerated the procedure well. The quality of the bowel preparation was good. Scope was also inserted via the rectum. There was a moderate amount of semi-solid stool visualized in the rectum. Findings: Patient is status-post total colectomy with an ileostomy. Impression: - No specimens collected. Recommendation: - Resume previous diet. - Continue present medications. - Return to referring physician as previously scheduled. Ulices Desir, 02/16/2017 1:33:56 PM This report has been signed electronically. Note Initiated On: 02/16/2017 11:37 AM I attest to the content of the Intraoperative Record and orders documented therein, exceptions below
[2017-02-16 13:57] VITALS: BP 131/73; PULSE 68; O2SAT 98
== END | disposition home or self-care (01) ==
LOC: C.GI 09:44
PROVIDERS: ATTEND Internal Medicine
DX: K50.90 Crohn's disease, unspecified, without complications (principal); K21.9 Gastro-esophageal reflux disease without esophagitis; E66.9 Obesity, unspecified; F17.200 Nicotine dependence, unspecified, uncomplicated; Z93.2 Ileostomy status; Z79.01 Long term (current) use of anticoagulants; Z90.49 Acquired absence of other specified parts of digestive tract; Z86.711 Personal history of pulmonary embolism

== ENCOUNTER 2017-03-29 17:48 | Inpatient (IN) | payer OTHER ==
[~2017-03-29] VITALS: Ht 167.6 cm; Wt 121.6 kg
[~2017-03-29 17:48] MED LIST changes: -ADAL40KI INJ; +ADAL40KI SC; -ATROPINE SULFATE 0.1 MG/ML 5ML SYR IV PRN; -EpHEDrine SULFATE INJ 50 MG/ML AMP IV PRN; -LIDOCAINE HCL 2% 2 ML VIAL (20MG/ML) ONE; -PROPOFOL IV EMULSION 10 MG/ML 20 ML VIAL IV ONE; -SODIUM CHLORIDE 0.9% 500ML 500 ML IV ONE
[2017-03-29] MEDS ORDERED: ONDANSETRON INJ 2 MG/ML 2 ML VIAL IV STA (19:24)
[2017-03-29] MEDS ORDERED: MoRPHine SULFATE 4 MG/ML 1 ML CARP\\VIAL IV STA (19:24)
[2017-03-29 19:52] LABS: BASO % 0.3 %; BASO ABS # 0.02 K/uL (0-0.2); EOS % 2.2 %; EOS ABS # 0.17 K/uL (0-0.5); HEMATOCRIT 41.8 % (37-47); HEMOGLOBIN 15.8 g/dL (12.0-16.0); IG# 0.05 K/uL (0.00-0.02); LYMPH % 25.8 %; LYMPH ABS # 2.02 K/uL (1.2-3.4); MEAN CELL VOLUME 85.7 fL (80-100); MEAN CORPUSCULAR HEMOGLOBIN 32.4 pg (25-34); MEAN CORPUSCULAR HGB CONC 37.8 g/dl (32-36); MEAN PLATELET VOLUME 9.3 fL (7.4-10.4); MONO % 8.9 %; NEUT % 62.2 %; NEUT ABS # 4.87 K/uL (1.4-6.5); PLATELET COUNT 208 K/uL (130-400); RED CELL DISTRIBUTION WIDTH CV 12.9 % (11.5-14.5); RED CELL DISTRIBUTION WIDTH SD 40.6 fL (36.4-46.3); WHITE BLOOD COUNT 7.83 K/uL (4.8-10.8)
[2017-03-29 20:06] LABS: PTT PATIENT 35.3 SECONDS (21.0-31.0)
[2017-03-29 20:08] LABS: ALBUMIN 3.7 gm/dl (3.4-5.0); ALT/SGPT 31 U/L (12-78); AST/SGOT 18 U/L (15-37); BLOOD UREA NITROGEN 57 mg/dl (7-18); CALCIUM 9.1 mg/dl (8.5-10.1); CARBON DIOXIDE 16 mmol/L (21-32); CREATININE 3.17 mg/dl (0.60-1.20); GLUCOSE 117 mg/dl (70-99); LIPASE 611 U/L (73-393); POTASSIUM 3.4 mmol/L (3.5-5.1); SODIUM 125 mmol/L (136-145)
[2017-03-29] MEDS ORDERED: SODIUM CHLORIDE 0.9% 1000ML 1,000 ML IV STA (20:10)
[2017-03-29 20:16] LABS: ALKALINE PHOSPHATASE 148 U/L (45-117); PHOSPHORUS 4.8 mg/dl (2.5-4.9); TOTAL PROTEIN 8.2 gm/dl (6.4-8.2)
--- NOTE | 2017-03-29 20:21 | DIAGNOSTIC IMAGING REPORT ---
ABDOMEN 2VIEW W/PA CHEST RTN CLINICAL HISTORY: ABDOMINAL PAIN/GI pain COMPARISON STUDY: 09/26/2016 FINDINGS: The soft tissues, psoas shadows, renal outlines and intestinal gas pattern appear normal. There is no evidence for bowel obstruction. There is no evidence for free intraperitoneal air. No abnormal abdominal calcifications are seen. A frontal view of the chest was performed and is unremarkable. IMPRESSION: No acute process of the chest or abdomen The above report was generated using voice recognition software. It may contain grammatical, syntax or spelling errors. Electronically signed by: Barrie Kurtz M.D. 03/29/2017 8:20 PM Dictated Date/Time: 03/29/2017 8:19 PM
--- NOTE | 2017-03-29 20:36 | EMERGENCY ROOM VISIT NOTE ---
History First contact with patient: 17:57 Chief Complaint: NAUSEA Stated Complaint: HEADACHE, MUSCLE CRAMPING Nursing Triage Summary: Nausea with no vomiting. Patient states she is having hand and lip numbness. History of Present Illness The patient is a 61 year old female who presents to the Emergency Room via ambulance with multiple complaints, including left arm and shoulder pain, bilateral hand and leg cramping, lip numbness, throat dryness, leg weakness, mild shortness of breath, headache and chest discomfort. The patient reports a history of Crohn's disease. She currently has an ileostomy in place, and is hoping for a reversal and a prostate 6 months. She is currently on Humira every other week. She is also currently on Eliquis for recent diagnosis of pulmonary emboli and. The patient denies any significant increase in ileostomy output. She has nausea without vomiting. She denies any recent cough, sore throat, runny nose, congestion or fevers. She denies any pain on my exam. She has not noticed any peripheral edema. Review of Systems HEENT: Denies dizziness, visual problems, hearing loss, tinnitus. Denies difficulty swallowing or oral lesions. PULMONARY: Denies cough, sputum production or hemoptysis. CARDIOVASCULAR: Denies palpitations, dyspnea on exertion, orthopnea or peripheral edema. GASTROINTESTINAL: Denies diarrhea, constipation, vomiting, or significant abdominal pain. GENITOURINARY: Denies dysuria, frequency, urgency or nocturia. NEUROLOGIC: Denies history of epilepsy, CVA, TIA or chronic headaches. MUSCULOSKELETAL: Denies history of joint tenderness/swelling. SKIN: Denies rashes or lesions. PSYCHIATRIC: Denies history of depression or mental illness. ENDOCRINE: Denies history of diabetes or thyroid disorders. Past Medical/Surgical History Medical Problems: (1) Abdominal pain (2) Bowel obstruction (3) Cellulitis (4) Crohn's disease involving terminal ileum (5) Crohns disease (6) Hyponatremia (7) Partial small bowel obstruction (8) Postmenopausal bleeding (9) Pulmonary emboli (10) Rectal bleeding (11) right eye pain and decreased vision for 1 day (12) RUQ abdominal pain (13) SBO (small bowel obstruction) Family History Patient reports no known family medical history. Social History Smoking Status: Former Smoker Alcohol Use: none Drug Use: none Marital Status: Housing Status: lives with family Occupation Status: unemployed Current/Historical Medications Scheduled Adalimumab (Humira Pen), 1 DOSE INJ [id number] Atorvastatin (Lipitor), 20 MG PO QAM Cyanocobalamin (Vitamin B12), 1 TAB PO QAM Loperamide Hcl (Imodium A-D), 10 MG PO QID Loratadine (Claritin), 10 MG PO QAM Montelukast Sodium (Singulair), 10 MG PO QAM Pantoprazole (Protonix), 40 MG PO QAM Probiotic Product (Probiotic), 1 CAP PO QAM Warfarin Sod (Jantoven), 5 MG PO MWF Warfarin Sod (Jantoven), 2.5 MG PO [id number] [Vitamin D], 1 TAB PO MONTHLY Scheduled PRN Ondansetron Hcl (Zofran), 4 MG PO Q8H PRN for Nausea Tramadol (Ultram), 50 MG PO Q8H PRN for Pain Trazodone Hcl (Trazodone), 50 MG PO DAILY PRN for Anxiety Physical Exam Vital Signs Date Time Temp Pulse Resp B/P (MAP) Pulse Ox O2 Delivery O2 Flow Rate FiO2 03/29/17 20:03 85 20 95/71 98 Room Air 03/29/17 19:49 90 103/66 98 Room Air 103 95/71 112 90/69 03/29/17 17:58 36.7 95 20 109/72 97 Room Air Physical Exam CONSTITUTIONAL: Morbidly obese female, alert and oriented X 3 with positive affect. Patient does not appear in any acute distress on exam. GCS 15. HEENT: Normocephalic, atraumatic. Pupils equal, round and reactive. Ears and nares are clear. No rhinorrhea noted. No scleral icterus or conjunctival injection/pallor. OROPHARYNX: Mucous membranes are dry. No tonsillar hypertrophy or posterior pharyngeal erythema. NECK: Full active range of motion without discomfort. No nuchal rigidity or meningeal signs. No JVD or carotid bruits. RESPIRATORY: Clear to auscultation bilaterally with no wheezing, crackles, rhonchi or stridor. CARDIOVASCULAR: Regular rate and rhythm with no murmurs, rubs or gallops. GASTROINTESTINAL: Bowel sounds present in all quadrants. Ileostomy bag shows normal brown stool. No significant abdominal tenderness to palpation. No obvious hepatosplenomegaly. Negative McBurney's point tenderness. Negative CVA tenderness. MUSCULOSKELETAL: Full range of motion of all joints without discomfort. No peripheral edema. She has mild tenderness to palpation across the costochondral joints. INTEGUMENTARY: No rash or other significant dermatologic conditions noted. HEMATOLOGIC: No ecchymosis or petechiae. NEUROLOGIC: No focal neurologic deficits noted. Upper and lower extremities are sensory intact. Normal finger to nose test. Negative pronator drift. Facial sensations are intact. No facial droop. Medical Decision & Procedures ER Provider Diagnostic Interpretation: My interpretation of an ECG shows a normal sinus rhythm of 89 bpm with no ischemic changes or conduction abnormalities. An initial ECG that was performed showed ST elevation in inferior leads. I did have the nurse recheck the leads for proper placement, and tracing improved. My interpretation of an abdomen obstruction series with a PA chest does not show any obstructive pattern or free air. Radiologist report is as follows: ABDOMEN 2VIEW W/PA CHEST RTN CLINICAL HISTORY: ABDOMINAL PAIN/GI pain COMPARISON STUDY: 09/26/2016 FINDINGS: The soft tissues, psoas shadows, renal outlines and intestinal gas pattern appear normal. There is no evidence for bowel obstruction. There is no evidence for free intraperitoneal air. No abnormal abdominal calcifications are seen. A frontal view of the chest was performed and is unremarkable. IMPRESSION: No acute process of the chest or abdomen Laboratory Results 03/29/17 19:35 Red Blood Count 4.88, Mean Corpuscular Volume 85.7, Mean Corpuscular Hemoglobin 32.4, Mean Corpuscular Hemoglobin Concent 37.8, Mean Platelet Volume 9.3, Neutrophils (%) (Auto) 62.2, Lymphocytes (%) (Auto) 25.8, Monocytes (%) (Auto) 8.9, Eosinophils (%) (Auto) 2.2, Basophils (%) (Auto) 0.3, Neutrophils # (Auto) 4.87, Lymphocytes # (Auto) 2.02, Monocytes # (Auto) 0.70, Eosinophils # (Auto) 0.17, Basophils # (Auto) 0.02 03/29/17 19:35 Test 03/29/17 19:32 03/29/17 19:35 Urine Color YELLOW Urine Appearance CLOUDY (CLEAR) Urine pH 5.0 (4.5-7.5) Urine Specific [place] 1.017 (1.000-1.030) Urine Protein NEG (NEG) Urine Glucose (UA) NEG (NEG) Urine Ketones NEG (NEG) Urine Occult Blood NEG (NEG) Urine Nitrite NEG (NEG) Urine Bilirubin NEG (NEG) Urine Urobilinogen NEG (NEG) Urine Leukocyte Esterase NEG (NEG) Urine WBC (Auto) 1-5 /hpf (0-5) Urine RBC (Auto) 0-4 /hpf (0-4) Urine Hyaline Casts (Auto) 5-10 /lpf (0-5) Urine Epithelial Cells (Auto) >30 /lpf (0-5) Urine Bacteria (Auto) 1+ (NEG) White Blood Count 7.83 K/uL (4.8-10.8) Red Blood Count 4.88 M/uL (4.2-5.4) Hemoglobin 15.8 g/dL (12.0-16.0) Hematocrit 41.8 % (37-47) Mean Corpuscular Volume 85.7 fL (80-100) Mean Corpuscular Hemoglobin 32.4 pg (25-34) Mean Corpuscular Hemoglobin Concent 37.8 g/dl (32-36) Platelet Count 208 K/uL (130-400) Mean Platelet Volume 9.3 fL (7.4-10.4) Neutrophils (%) (Auto) 62.2 % Lymphocytes (%) (Auto) 25.8 % Monocytes (%) (Auto) 8.9 % Eosinophils (%) (Auto) 2.2 % Basophils (%) (Auto) 0.3 % Neutrophils # (Auto) 4.87 K/uL (1.4-6.5) Lymphocytes # (Auto) 2.02 K/uL (1.2-3.4) Monocytes # (Auto) 0.70 K/uL (0.11-0.59) Eosinophils # (Auto) 0.17 K/uL (0-0.5) Basophils # (Auto) 0.02 K/uL (0-0.2) RDW Standard Deviation 40.6 fL (36.4-46.3) RDW Coefficient of Variation 12.9 % (11.5-14.5) Immature Granulocyte % (Auto) 0.6 % Immature Granulocyte # (Auto) 0.05 K/uL (0.00-0.02) Prothrombin Time 10.3 SECONDS (9.0-12.0) Prothromb Time International Ratio 1.0 (0.9-1.1) Activated Partial Thromboplast Time 35.3 SECONDS (21.0-31.0) Partial Thromboplastin Ratio 1.4 Anion Gap 14.0 mmol/L (3-11) Est Creatinine Clear Calc Drug Dose 24.3 ml/min Estimated GFR () 17.3 Estimated GFR (Non- 15.0 BUN/Creatinine Ratio 17.9 (10-20) Calcium Level 9.1 mg/dl (8.5-10.1) Phosphorus Level 4.8 mg/dl (2.5-4.9) Magnesium Level 2.1 mg/dl (1.8-2.4) Total Bilirubin 0.4 mg/dl (0.2-1) Direct Bilirubin 0.2 mg/dl (0-0.2) Aspartate Amino Transf (AST/SGOT) 18 U/L (15-37) Alanine Aminotransferase (ALT/SGPT) 31 U/L (12-78) Alkaline Phosphatase 148 U/L (45-117) Total Creatine Kinase 60 U/L (26-192) Troponin I < 0.015 ng/ml (0-0.045) Pro-B-Type Natriuretic Peptide 238 pg/ml (0-900) Total Protein 8.2 gm/dl (6.4-8.2) Albumin 3.7 gm/dl (3.4-5.0) Lipase 611 U/L (73-393) Thyroid Stimulating Hormone (TSH) 0.712 uIu/ml (0.300-4.500) The above labs were reviewed. Sodium is 125, creatinine 3.17. Potassium, magnesium and phosphorus are grossly normal. No white count noted. Urinalysis is not consistent with infection. Medications Administered Medications (Trade) Dose Ordered Sig/Rachael Route Start Time Stop Time Status Last Admin Dose Admin Morphine Sulfate (MoRPHine SULFATE INJ) 4 mg NOW STAT IV 03/29/17 19:24 03/29/17 19:25 DC 03/29/17 19:24 4 MG Ondansetron HCl (Zofran Inj) 4 mg NOW STAT IV 03/29/17 19:24 03/29/17 19:25 DC 03/29/17 19:24 4 MG Sodium Chloride 1,000 ml @ 999 mls/hr Q1H1M STAT IV 03/29/17 20:10 03/29/17 21:10 03/29/17 20:10 999 MLS/HR ED Course Patient history and physical exam were performed. Nurse's notes were reviewed. Vital signs were reviewed from initial exam, and were normal. However, orthostatic vital signs were consistent with dehydration. The patient was hydrated with a liter normal saline after IV access was established, and labs were drawn. Review of labs shows hyponatremia and acute renal failure. No leukocytosis noted. The patient was administered IV morphine and Zofran for pain and nausea. The case was further discussed with Dr. Park, ED attending physician, who agrees with hospitalist consultation. The case was then discussed with Dr. Navas, [facility] hospitalist. Please see his dictation for further treatment and final disposition. Medical Decision Patient presents to the emergency with multiple complaints. The patient is clinically dehydrated. She is hyponatremic and with acute kidney injury, likely secondary to dehydration. The patient has had no increased ileostomy output, and clinical exam is not suggestive of peritonitis. The patient is afebrile and has no leukocytosis. I do not suspect infectious etiology. [place] Drug Monitoring Program Search Results: patient reviewed within database, no issues identified Medication Reconcilliation Current Medication List: was personally reviewed by ne Blood Pressure Screening Patient's blood pressure: Low blood pressure Impression Primary Impression: Hyponatremia Additional Impressions: Dehydration Acute kidney injury Departure Information Referrals Oc Sesay PA-C (PCP) Patient Instructions My [facility] Problem Qualifiers
[2017-03-29] MEDS ORDERED: PANT40TA2 PO (20:38)
[2017-03-29] MEDS ORDERED: TRAZ-120 PO (20:38)
[2017-03-29] MEDS ORDERED: SNG10 PO (20:38)
[2017-03-29] MEDS ORDERED: ATOR-22 PO (20:38)
[2017-03-29] MEDS ORDERED: LORA10TA6 PO (20:38)
[2017-03-29] MEDS ORDERED: LOPE1LIQ15 PO (20:38)
[2017-03-29] MEDS ORDERED: ULT50 PO (20:38)
[2017-03-29] MEDS ORDERED: APIX1TAB3 PO (20:40)
[2017-03-29] MEDS ORDERED: CHOL2000 PO (20:42)
--- NOTE | 2017-03-29 22:29 | History and Physical ---
History & Physical Date & Time of Service: Mar 29, 2017 at 22:29 Chief Complaint: Headache, Muscle Cramping Primary Care Physician: Oc Sesay PA-C History of Present Illness Source: patient, hospital records The patient is a 61-year-old female who presents to the emergency Department via ambulance with multiple pain complaints involving left arm and shoulder, bilateral hands and legs with cramping, lips numbness, throat dryness, generalized leg weakness, headache, mild shortness of breath and occasional chest discomfort. She has history of Crohn's disease, with ileostomy in place, and has had high output over the past several days, for which she is taking Lomotil 4 times daily. She is on Humira every other week, and is on Eliquis for pulmonary emboli. Past Medical/Surgical History Medical Problems: (1) Cellulitis Status: Resolved (2) Crohn's disease involving terminal ileum Status: Chronic (3) Crohns disease Status: Chronic (4) Pulmonary emboli Status: Resolved (5) SBO (small bowel obstruction) Status: Resolved Family History Patient reports no known family medical history. Social History Smoking Status: Former Smoker Smokeless Tobacco Use: No Alcohol Use: none Drug Use: none Marital Status: Housing status: lives alone Occupational Status: unemployed Immunizations History of Influenza Vaccine: Unknown History of Tetanus Vaccine?: Unknown History of Pneumococcal: Unknown History of Hepatitis B Vaccine: Unknown Multi-Drug Resistant Organisms History of MDRO: No Allergies Coded Allergies: No Known Allergies (Verified , 02/16/17) Home Medications Scheduled Adalimumab (Humira Pen), 40 MG SC [id number] Apixaban (Eliquis), 5 MG PO BID Atorvastatin (Lipitor), 20 MG PO QAM Cholecalciferol (Vitamin D3), 2,000 INTER.UNIT PO DAILY Cyanocobalamin (Vitamin B12), 1,000 MCG PO QAM Loperamide Hcl (Loperamide Hcl), 10 ML PO QID Loratadine (Claritin), 10 MG PO QAM Montelukast Sod (Montelukast Sodium), 10 MG PO QAM Pantoprazole (Pantoprazole Sodium), 40 MG PO QAM Probiotic Product (Probiotic), 1 CAP PO QAM Scheduled PRN Ondansetron Hcl (Zofran), 4 MG PO Q8H PRN for Nausea Tramadol HCl (Tramadol HCl), 50 MG PO Q8 PRN for Pain Trazodone Hcl (Desyrel), 50 MG PO HS PRN for Sleep Review of Systems The patient denies cough, lower extremity swelling, sore throat, fevers, chills, sweats, vomiting, constipation, blood in urine or stool, dysuria, urinary frequency or urgency, lightheadedness , dizziness, headache, memory loss, loss of consciousness, rash, abnormal bruising or bleeding, focal weakness, numbness or tingling in arms or legs, or night sweats. The review of systems is otherwise negative other than for that already noted above, and at least 10 systems have been reviewed. Physical Exam Vital Signs Date Time Temp Pulse Resp B/P (MAP) Pulse Ox O2 Delivery O2 Flow Rate FiO2 03/29/17 21:55 72 20 102/67 98 Room Air 03/29/17 20:03 85 20 95/71 98 Room Air 03/29/17 19:49 90 103/66 98 Room Air 103 95/71 112 90/69 03/29/17 17:58 36.7 95 20 109/72 97 Room Air The patient is awake, alert and oriented 3, well developed and well nourished, normocephalic and atraumatic, lying in bed and in no acute distress. HEENT--PERRL, EOMI, mucous membranes and oropharynx dry. Neck--supple. No JVD. No bruits. Thyroid normal, trachea midline, no adenopathy. Heart--normal S1 and S2. No murmurs, rubs or gallops. Lungs--clear bilaterally, no respiratory distress, no accessory muscle use. Abdomen--normal bowel sounds and soft. Nontender. Nondistended, no hernias or masses, no organomegaly. Extremities--no cyanosis or clubbing. No edema. There are good distal pulses b/ l. Dermatologic--normal skin turgor, normal color, no abnormal lymph nodes, no rash. Neurologic--cranial nerves II through XII grossly intact. Rheumatologic--normal range of motion, generalized positive examination Psychiatric--normal affect. Diagnostics Laboratory Results Results Past 24 Hours Test 03/29/17 19:32 03/29/17 19:35 03/29/17 22:19 Range/Units Urine Color YELLOW Urine Appearance CLOUDY CLEAR Urine pH 5.0 4.5-7.5 Urine Specific [place] 1.017 1.000-1.030 Urine Protein NEG NEG Urine Glucose (UA) NEG NEG Urine Ketones NEG NEG Urine Occult Blood NEG NEG Urine Nitrite NEG NEG Urine Bilirubin NEG NEG Urine Urobilinogen NEG NEG Urine Leukocyte Esterase NEG NEG Urine WBC (Auto) 1-5 0-5 /hpf Urine RBC (Auto) 0-4 0-4 /hpf Urine Hyaline Casts (Auto) 5-10 0-5 /lpf Urine Epithelial Cells (Auto) >30 0-5 /lpf Urine Bacteria (Auto) 1+ NEG White Blood Count 7.83 4.8-10.8 K/uL Red Blood Count 4.88 4.2-5.4 M/uL Hemoglobin 15.8 12.0-16.0 g/dL Hematocrit 41.8 37-47 % Mean Corpuscular Volume 85.7 80-100 fL Mean Corpuscular Hemoglobin 32.4 25-34 pg Mean Corpuscular Hemoglobin Concent 37.8 32-36 g/dl Platelet Count 208 130-400 K/uL Mean Platelet Volume 9.3 7.4-10.4 fL Neutrophils (%) (Auto) 62.2 % Lymphocytes (%) (Auto) 25.8 % Monocytes (%) (Auto) 8.9 % Eosinophils (%) (Auto) 2.2 % Basophils (%) (Auto) 0.3 % Neutrophils # (Auto) 4.87 1.4-6.5 K/uL Lymphocytes # (Auto) 2.02 1.2-3.4 K/uL Monocytes # (Auto) 0.70 0.11-0.59 K/uL Eosinophils # (Auto) 0.17 0-0.5 K/uL Basophils # (Auto) 0.02 0-0.2 K/uL RDW Standard Deviation 40.6 36.4-46.3 fL RDW Coefficient of Variation 12.9 11.5-14.5 % Immature Granulocyte % (Auto) 0.6 % Immature Granulocyte # (Auto) 0.05 0.00-0.02 K/uL Prothrombin Time 10.3 9.0-12.0 SECONDS Prothromb Time International Ratio 1.0 0.9-1.1 Activated Partial Thromboplast Time 35.3 21.0-31.0 SECONDS Partial Thromboplastin Ratio 1.4 Sodium Level 125 136-145 mmol/L Potassium Level 3.4 3.5-5.1 mmol/L Chloride Level 95 98-107 mmol/L Carbon Dioxide Level 16 21-32 mmol/L Anion Gap 14.0 3-11 mmol/L Blood Urea Nitrogen 57 7-18 mg/dl Creatinine 3.17 0.60-1.20 mg/dl Est Creatinine Clear Calc Drug Dose 24.3 ml/min Estimated GFR () 17.3 Estimated GFR (Non- 15.0 BUN/Creatinine Ratio 17.9 10-20 Random Glucose 117 70-99 mg/dl Calcium Level 9.1 8.5-10.1 mg/dl Phosphorus Level 4.8 2.5-4.9 mg/dl Magnesium Level 2.1 1.8-2.4 mg/dl Total Bilirubin 0.4 0.2-1 mg/dl Direct Bilirubin 0.2 0-0.2 mg/dl Aspartate Amino Transf (AST/SGOT) 18 15-37 U/L Alanine Aminotransferase (ALT/SGPT) 31 12-78 U/L Alkaline Phosphatase 148 45-117 U/L Total Creatine Kinase 60 26-192 U/L Troponin I < 0.015 0-0.045 ng/ml Pro-B-Type Natriuretic Peptide 238 0-900 pg/ml Total Protein 8.2 6.4-8.2 gm/dl Albumin 3.7 3.4-5.0 gm/dl Lipase 611 73-393 U/L Thyroid Stimulating Hormone (TSH) 0.712 0.300-4.500 uIu/ml Diagnostic Radiology ABDOMEN 2VIEW W/PA CHEST RTN CLINICAL HISTORY: ABDOMINAL PAIN/GI pain COMPARISON STUDY: 09/26/2016 FINDINGS: The soft tissues, psoas shadows, renal outlines and intestinal gas pattern appear normal. There is no evidence for bowel obstruction. There is no evidence for free intraperitoneal air. No abnormal abdominal calcifications are seen. A frontal view of the chest was performed and is unremarkable. IMPRESSION: No acute process of the chest or abdomen The above report was generated using voice recognition software. It may contain grammatical, syntax or spelling errors. Electronically signed by: Barrie Kurtz M.D. 03/29/2017 8:20 PM Dictated Date/Time: 03/29/2017 8:19 EKG EKG shows normal sinus rhythm at 89 bpm, there are no acute ST-T changes. Impression Assessment and Plan Hyponatremia/acute kidney injury/dehydration/high ileostomy output-- Sodium 125, creatinine 3.[address] on normal saline at 150 ML's per hour, and follow serial BMP and magnesium levels. Stop Lomotil as it may be contributing to kidney dysfunction. Start cholestyramine 4 times a day with first dose tonight. Stool culture, C. difficile and O&P studies pending. Crohns'/status post ileostomy placement-- She is hoping for a reversal within the next 6 months. Abdominal x-ray negative. On Humira as outpatient. Polymyalgias and polyarthralgias-- Increased tramadol dosing for now. Add a sedimentation rate and liver profile to current laboratories. Question whether she may be having a flare secondary to Crohn's. Pulmonary emboli/history of GI bleeding-- Continue warfarin. The patient was told that she was not to be on heparin by gastroenterology. She will need to have a VQ scan now, or get a CTA for PE once her creatinine is improved. She has no change in pulmonary symptoms at this time. GERD-- Continue pantoprazole Level of Care Med/Surg Advanced Directives Existing Advance Directive: No Existing Living Will: No Existing Power of Sofa Inspector: No Resuscitation Status FULL RESUSCITATION VTE Prophylaxis VTE Risk Assessment Done? Y/N: Yes Risk Level: Moderate Given or contraindicated: Other Anticoagulation Social Service Consult None Apply
[2017-03-29] MEDS ORDERED: ACETAMINOPHEN IV 100 ML IV PRN (22:30)
[2017-03-29] MEDS ORDERED: TRAZODONE HCL 50 MG TAB PO PRN (22:30)
[2017-03-29 22:55] VITALS: BP 97/62; PULSE 87; TEMP 36.7; O2SAT 97; Ht 167.6 cm; Wt 121.6 kg
[2017-03-29] MEDS ORDERED: IV FLUIDS COMPLETED PRN (23:15)
[2017-03-29] MEDS: SODIUM CHLORIDE 0.9% 1000ML 1,000 ML IV SCH (23:21)
[2017-03-29] MEDS ORDERED: CHOLESTYRAMINE LIGHT 4 GM PKT PO ONE (23:30)
[2017-03-29] MEDS: TRAMADOL HCL 50 MG TAB PO PRN (23:38)
[2017-03-29 23:44] VITALS: BP 108/72; PULSE 78; TEMP 36.5; O2SAT 97
[2017-03-30] MEDS: ACETAMINOPHEN 325 MG TAB PO PRN (04:11)
[2017-03-30] MEDS: SODIUM CHLORIDE 0.9% 1000ML 1,000 ML IV SCH (06:10)
[2017-03-30 07:09] VITALS: BP 96/61; PULSE 75; TEMP 36.5; O2SAT 96
[2017-03-30] MEDS: TRAMADOL HCL 50 MG TAB PO PRN (07:29)
[2017-03-30 07:33] LABS: BASO % 0.3 %; BASO ABS # 0.02 K/uL (0-0.2); EOS % 3.5 %; EOS ABS # 0.21 K/uL (0-0.5); HEMATOCRIT 36.7 % (37-47); IG# 0.05 K/uL (0.00-0.02); LYMPH ABS # 2.15 K/uL (1.2-3.4); MEAN CELL VOLUME 87.8 fL (80-100); MEAN CORPUSCULAR HEMOGLOBIN 31.1 pg (25-34); MEAN CORPUSCULAR HGB CONC 35.4 g/dl (32-36); MEAN PLATELET VOLUME 9.8 fL (7.4-10.4); MONO % 13.1 %; MONO ABS # 0.78 K/uL (0.11-0.59); NEUT % 46.3 %; NEUT ABS # 2.76 K/uL (1.4-6.5); PLATELET COUNT 191 K/uL (130-400); RED CELL DISTRIBUTION WIDTH SD 41.5 fL (36.4-46.3); WHITE BLOOD COUNT 5.97 K/uL (4.8-10.8)
[2017-03-30 07:58] LABS: CALCIUM 8.2 mg/dl (8.5-10.1); CREATININE 2.52 mg/dl (0.60-1.20); POTASSIUM 3.3 mmol/L (3.5-5.1)
[2017-03-30] MEDS: LORATADINE 10 MG TAB PO SCH (08:22)
[2017-03-30] MEDS: ATORVASTATIN 20 MG TAB PO SCH (08:22)
[2017-03-30] MEDS: CYANOCOBALAMIN 100 MCG TAB (VIT B-12) PO SCH (08:22)
[2017-03-30] MEDS: PANTOprazole SOD 40 MG TAB PO SCH (08:22)
[2017-03-30] MEDS: MONTELUKAST SOD 10 MG TAB PO SCH (08:23)
[2017-03-30] MEDS: APIXABAN 2.5 MG TAB PO SCH ×2 (08:23→21:10)
[2017-03-30] MEDS: LACTOBACILLUS ACIDOPHILUS (FLORANEX) TAB PO SCH ×4 (08:23→21:11)
[2017-03-30] MEDS: CHOLECALCIFEROL 1000 INTER.UNIT TAB PO SCH (08:24)
[2017-03-30] MEDS: CHOLESTYRAMINE LIGHT 4 GM PKT PO SCH ×4 (08:26→23:10)
[2017-03-30] MEDS: NSS + 20MEQ KCL 1000ML 1,000 ML IV SCH ×2 (09:11→17:17)
[2017-03-30 11:49] VITALS: BP 109/72; PULSE 71; O2SAT 96
[2017-03-30] MEDS: NICOTINE 21 MG/24 HR TDSY TD SCH (15:42)
[2017-03-30 16:02] VITALS: BP 107/67; PULSE 67; TEMP 36.5; O2SAT 98
[2017-03-30 16:56] VITALS: BP_SYST 102; BP_SYST 98; BP_SYST 99; BP_DIAS 62; BP_DIAS 64; BP_DIAS 67; PULSE 71; PULSE 73; PULSE 75
--- NOTE | 2017-03-30 17:35 | Progress Note ---
Subjective Date of Service: Mar 30, 2017. Subjective this pt feels she is improving but still has low sodium, she feels her ostomy outpt has reduced and her weakness is resolving Problem List Medical Problems: (1) Abdominal pain Status: Acute (2) Acute kidney injury Status: Acute (3) JULIETTE (acute kidney injury) Status: Acute (4) Dehydration Status: Acute (5) Dehydration Status: Acute (6) Diarrhea Status: Acute (7) Epistaxis Status: Acute (8) Fever Status: Acute (9) Fistula of intestine, excluding rectum and anus Status: Acute (10) Headache Status: Acute (11) Hyponatremia Status: Acute (12) Ileus Status: Acute (13) Inflammatory bowel disease Status: Acute (14) Left sided chest pain Status: Acute (15) Multiple pulmonary emboli Status: Acute (16) Optic neuritis Status: Acute (17) Partial small bowel obstruction Status: Acute (18) Rectal bleed Status: Acute (19) RLQ abdominal pain Status: Acute (20) RLQ abdominal pain Status: Acute (21) Small bowel obstruction Status: Acute (22) Small bowel obstruction Status: Acute (23) Substernal chest pain Status: Acute (24) Subtherapeutic international normalized ratio (INR) Status: Acute (25) 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 (26) Visual disturbance Status: Acute Review of Systems Constitutional: + weakness, + fatigue, No fever, No chills Respiratory: No cough, No sputum, No shortness of breath Cardiac: No chest pain, No edema Abdomen: + problem reported (increased ostomy output), No pain, No nausea, No vomiting Musculoskeletal: No joint pain, No muscle pain Neurologic: No memory loss, No weakness Psychiatric: No depression symptoms, No anxiety Objective Vital Signs Date Time Temp Pulse Resp B/P (MAP) Pulse Ox O2 Delivery O2 Flow Rate FiO2 03/30/17 16:56 71 98/62 (74) 73 99/64 (76) 75 102/67 (79) 03/30/17 16:02 36.5 67 18 107/67 (80) 98 Room Air 03/30/17 16:00 Room Air 03/30/17 11:49 71 16 109/72 (84) 96 Room Air 03/30/17 07:54 Room Air 03/30/17 07:09 36.5 75 20 96/61 (73) 96 Room Air 03/30/17 00:01 Room Air 03/29/17 23:44 36.5 78 18 108/72 (84) 97 Room Air 03/29/17 22:55 36.7 87 24 97/62 97 Room Air 03/29/17 21:55 72 20 102/67 98 Room Air 03/29/17 20:03 85 20 95/71 98 Room Air 03/29/17 19:49 90 103/66 98 Room Air 103 95/71 112 90/69 03/29/17 17:58 36.7 95 20 109/72 97 Room Air Physical Exam General Appearance: WD/WN, + mild distress, + obese Eyes: normal inspection, sclerae normal Respiratory/Chest: chest non-tender, lungs clear, no respiratory distress Cardiovascular: regular rate, rhythm, no murmur Abdomen: soft, + guarding, + tenderness Extremities: no pedal edema, no calf tenderness Neurologic/Psychiatric: alert, oriented x 3 Laboratory Results Last 24 Hours Test 03/29/17 19:32 03/29/17 19:35 03/30/17 00:15 03/30/17 06:33 Urine Color YELLOW Urine Appearance CLOUDY Urine pH 5.0 Urine Specific [place]augh 1.017 Urine Protein NEG Urine Glucose (UA) NEG Urine Ketones NEG Urine Occult Blood NEG Urine Nitrite NEG Urine Bilirubin NEG Urine Urobilinogen NEG Urine Leukocyte Esterase NEG Urine WBC (Auto) 1-5 /hpf Urine RBC (Auto) 0-4 /hpf Urine Hyaline Casts (Auto) 5-10 /lpf Urine Epithelial Cells (Auto) >30 /lpf Urine Bacteria (Auto) 1+ White Blood Count 7.83 K/uL 5.97 K/uL Red Blood Count 4.88 M/uL 4.18 M/uL Hemoglobin 15.8 g/dL 13.0 g/dL Hematocrit 41.8 % 36.7 % Mean Corpuscular Volume 85.7 fL 87.8 fL Mean Corpuscular Hemoglobin 32.4 pg 31.1 pg Mean Corpuscular Hemoglobin Concent 37.8 g/dl 35.4 g/dl Platelet Count 208 K/uL 191 K/uL Mean Platelet Volume 9.3 fL 9.8 fL Neutrophils (%) (Auto) 62.2 % 46.3 % Lymphocytes (%) (Auto) 25.8 % 36.0 % Monocytes (%) (Auto) 8.9 % 13.1 % Eosinophils (%) (Auto) 2.2 % 3.5 % Basophils (%) (Auto) 0.3 % 0.3 % Neutrophils # (Auto) 4.87 K/uL 2.76 K/uL Lymphocytes # (Auto) 2.02 K/uL 2.15 K/uL Monocytes # (Auto) 0.70 K/uL 0.78 K/uL Eosinophils # (Auto) 0.17 K/uL 0.21 K/uL Basophils # (Auto) 0.02 K/uL 0.02 K/uL RDW Standard Deviation 40.6 fL 41.5 fL RDW Coefficient of Variation 12.9 % 13.0 % Immature Granulocyte % (Auto) 0.6 % 0.8 % Immature Granulocyte # (Auto) 0.05 K/uL 0.05 K/uL Prothrombin Time 10.3 SECONDS Prothromb Time International Ratio 1.0 Activated Partial Thromboplast Time 35.3 SECONDS Partial Thromboplastin Ratio 1.4 Sodium Level 125 mmol/L 125 mmol/L Potassium Level 3.4 mmol/L 3.3 mmol/L Chloride Level 95 mmol/L 96 mmol/L Carbon Dioxide Level 16 mmol/L 17 mmol/L Anion Gap 14.0 mmol/L 12.0 mmol/L Blood Urea Nitrogen 57 mg/dl 46 mg/dl Creatinine 3.17 mg/dl 2.52 mg/dl Est Creatinine Clear Calc Drug Dose 24.3 ml/min 30.8 ml/min Estimated GFR () 17.3 22.9 Estimated GFR (Non- 15.0 19.7 BUN/Creatinine Ratio 17.9 18.4 Random Glucose 117 mg/dl 87 mg/dl Osmolality 284 mOsm/kg Calcium Level 9.1 mg/dl 8.2 mg/dl Phosphorus Level 4.8 mg/dl Magnesium Level 2.1 mg/dl 2.0 mg/dl Total Bilirubin 0.4 mg/dl Direct Bilirubin 0.2 mg/dl Aspartate Amino Transf (AST/SGOT) 18 U/L Alanine Aminotransferase (ALT/SGPT) 31 U/L Alkaline Phosphatase 148 U/L Total Creatine Kinase 60 U/L Troponin I < 0.015 ng/ml Pro-B-Type Natriuretic Peptide 238 pg/ml Total Protein 8.2 gm/dl Albumin 3.7 gm/dl Lipase 611 U/L Thyroid Stimulating Hormone (TSH) 0.712 uIu/ml Urine Osmolality 353 mOms/kg Assessment and Plan 61 F with increased ostomy output and hyponatremia and weakness Hyponatremia/acute kidney injury/dehydration/high ileostomy output-- Sodium remains 125, will fluid restict and check urine to see if SIADH creatinine 3.17 on admission, has improved with hydration . diarrhea Start cholestyramine 4 times a day pending Stool culture, C. difficile and O&P studies pending. if negative will restart lomotil, with history of Crohn 's this maybe a flare Crohns'/status post ileostomy placement--will have a colonic stump enema. Abdominal x-ray negative.On Humira as outpatient. Polymyalgias and polyarthralgias--improved with tramadol . Pulmonary emboli/history of GI bleeding-- Continue warfarin. but inr is subtherapeutic, continues with pulmonary symptoms at this time. GERD-- Continue pantoprazole
[2017-03-30] MEDS ORDERED: MICONAZOLE NITRATE POWDER 43 GM EXT PRN (21:30)
[2017-03-30 23:38] VITALS: BP_SYST 107; BP_SYST 116; BP_SYST 122; BP_DIAS 67; BP_DIAS 75; BP_DIAS 76; PULSE 68; PULSE 71; PULSE 77; TEMP 36.6; O2SAT 98
[2017-03-31] VITALS (8 sets, daily range): BP systolic 93–132; BP diastolic 62–79; PULSE 63–74; TEMP 36.2–36.4; O2SAT 97–98
[2017-03-31] MEDS: NSS + 20MEQ KCL 1000ML 1,000 ML IV SCH ×3 (01:24→18:58)
[2017-03-31] MEDS: TRAMADOL HCL 50 MG TAB PO PRN ×2 (04:40→12:29)
[2017-03-31] MEDS: ONDANSETRON 8MG OD TAB PO PRN ×2 (05:58→13:40)
[2017-03-31 07:58] LABS: BASO % 0.2 %; BASO ABS # 0.01 K/uL (0-0.2); EOS % 2.9 %; EOS ABS # 0.14 K/uL (0-0.5); HEMATOCRIT 36.3 % (37-47); HEMOGLOBIN 13.2 g/dL (12.0-16.0); IG# 0.02 K/uL (0.00-0.02); LYMPH % 27.6 %; LYMPH ABS # 1.31 K/uL (1.2-3.4); MEAN CORPUSCULAR HEMOGLOBIN 32.4 pg (25-34); MEAN CORPUSCULAR HGB CONC 36.4 g/dl (32-36); MEAN PLATELET VOLUME 9.2 fL (7.4-10.4); MONO % 8.4 %; NEUT % 60.5 %; NEUT ABS # 2.87 K/uL (1.4-6.5); PLATELET COUNT 168 K/uL (130-400); RED CELL DISTRIBUTION WIDTH CV 12.9 % (11.5-14.5); RED CELL DISTRIBUTION WIDTH SD 41.8 fL (36.4-46.3); WHITE BLOOD COUNT 4.75 K/uL (4.8-10.8)
[2017-03-31 08:22] LABS: CALCIUM 8.3 mg/dl (8.5-10.1); CREATININE 1.78 mg/dl (0.60-1.20); POTASSIUM 4.6 mmol/L (3.5-5.1)
[2017-03-31] MEDS: CYANOCOBALAMIN 100 MCG TAB (VIT B-12) PO SCH (08:27)
[2017-03-31] MEDS: MONTELUKAST SOD 10 MG TAB PO SCH (08:28)
[2017-03-31] MEDS: LORATADINE 10 MG TAB PO SCH (08:28)
[2017-03-31] MEDS: NICOTINE 21 MG/24 HR TDSY TD SCH (08:28)
[2017-03-31] MEDS: PANTOprazole SOD 40 MG TAB PO SCH (08:28)
[2017-03-31] MEDS: ATORVASTATIN 20 MG TAB PO SCH (08:28)
[2017-03-31] MEDS: LACTOBACILLUS ACIDOPHILUS (FLORANEX) TAB PO SCH ×4 (08:28→20:41)
[2017-03-31] MEDS: CHOLECALCIFEROL 1000 INTER.UNIT TAB PO SCH (08:28)
[2017-03-31] MEDS: APIXABAN 2.5 MG TAB PO SCH ×2 (08:29→20:40)
[2017-03-31] MEDS: CHOLESTYRAMINE LIGHT 4 GM PKT PO SCH ×4 (09:38→20:41)
--- NOTE | 2017-03-31 09:38 | DIAGNOSTIC IMAGING REPORT ---
BARIUM ENEMA AIR ROUTINE CLINICAL HISTORY: do we do gastrografin enemas? surgeon request to eval reversalpreoperative evaluation COMPARISON STUDY: None FLUOROSCOPY TIME: 40 seconds. FINDINGS: Limited study as the patient could not tolerate the enema despite 2 independent effort. Gastrografin is administered via a rectal tube. There is reasonable opacification of the bowel. There is mild chronic sigmoid diverticulosis. There is no evidence for acute diverticulitis. There is no contrast extravasation. Residual components of the colon extending to the left flank region. IMPRESSION: 1. Somewhat limited exam as patient cannot tolerate the enema. 2. Several scattered to mid sigmoid diverticuli with no evidence of diverticulitis. 3. Remainder of the sigmoid colon extends to the left flank with no evidence for extravasation or obstructive change. The above report was generated using voice recognition software. It may contain grammatical, syntax or spelling errors. Electronically signed by: Barrie Kurtz M.D. 03/31/2017 9:37 AM Dictated Date/Time: 03/31/2017 9:26 AM
[2017-03-31] MEDS: ACETAMINOPHEN 325 MG TAB PO PRN ×2 (10:53→16:42)
--- NOTE | 2017-03-31 13:13 | Hospitalist Progress Note ---
Hospitalist Progress Note Date of Service Mar 31, 2017. (Nicole Vences ., VARSHA) Subjective Pt evaluation today including: conversation w/ patient, physical exam, chart review, lab review, review of inpatient medication list Voiding: no voiding problems Ms. Carrillo reports feeling better today and that her strength is coming back. She continues to have high output from her ostomy. She still has numbness around her lips ROS Constitutional: no chills, aches, sweats or fever Respiratory: no sob,cough, sputum, or wheezing Cardiac: no chest pain, palpitations, edema, orthopnea or lightheadedness GI: no abdominal pain, nausea, vomiting, diarrhea or constipation : no dysuria or hesitancy Extremities: no joint pain or weakness Skin: no rash All other systems reviewed and negative (Nicole Vences .VARSHA) Medications Medications Administered Medications (Trade) Dose Ordered Sig/Rachael Route Start Time Stop Time Status Last Admin Dose Admin Morphine Sulfate (MoRPHine SULFATE INJ) 4 mg NOW STAT IV 03/29/17 19:24 03/29/17 19:25 DC 03/29/17 19:24 4 MG Ondansetron HCl (Zofran Inj) 4 mg NOW STAT IV 03/29/17 19:24 03/29/17 19:25 DC 03/29/17 19:24 4 MG Sodium Chloride 1,000 ml @ 999 mls/hr Q1H1M STAT IV 03/29/17 20:10 03/29/17 21:10 DC 03/29/17 20:10 999 MLS/HR Sodium Chloride 1,000 ml @ 150 mls/hr Q6H40M IV 03/29/17 23:30 03/30/17 08:26 DC 03/30/17 06:10 150 MLS/HR Acetaminophen (Tylenol Tab) 650 mg Q4H PRN PO 03/29/17 22:30 04/28/17 22:29 03/31/17 10:53 650 MG Atorvastatin Calcium (Lipitor Tab) 20 mg QAM PO 03/30/17 08:00 04/29/17 08:59 03/31/17 08:28 20 MG Loratadine (Claritin Tab) 10 mg QAM PO 03/30/17 08:00 04/29/17 08:59 03/31/17 08:28 10 MG Montelukast Sodium (Singulair Tab) 10 mg QAM PO 03/30/17 08:00 04/29/17 08:59 03/31/17 08:28 10 MG Pantoprazole Sodium (Protonix Tab) 40 mg QAM PO 03/30/17 08:00 04/29/17 08:59 03/31/17 08:28 40 MG Tramadol HCl (Ultram Tab) 100 mg Q6 PRN PO 03/29/17 22:30 04/28/17 22:29 03/31/17 12:29 100 MG Apixaban (Eliquis Tab) 5 mg BID PO 03/30/17 08:00 04/29/17 08:59 03/31/17 08:29 5 MG Cholecalciferol (Vitamin D Tab) 2,000 inter.unit QAM PO 03/30/17 08:00 04/29/17 08:59 03/31/17 08:28 2,000 INTER.UNIT Cyanocobalamin (Vitamin B-12 Tab) 100 mcg QAM PO 03/30/17 08:00 04/29/17 08:59 03/31/17 08:27 100 MCG Lactobacillus Acidophilus (Floranex Tab) 4 tab QIDM PO 03/30/17 08:00 04/29/17 07:59 03/31/17 12:29 4 TAB Cholestyramine Resin (Questran Powder Light) 4 gm QID PO 03/30/17 08:00 04/29/17 08:59 03/31/17 12:30 4 GM Cholestyramine Resin (Questran Powder Light) 4 gm 2330 ONCE PO 03/29/17 23:30 03/29/17 23:31 DC 03/29/17 23:31 4 GM Ondansetron HCl (Zofran Odt) 8 mg Q6H PRN PO 03/29/17 22:30 04/28/17 22:29 03/31/17 05:58 8 MG Potassium Chloride/Sodium Chloride 1,000 ml @ 125 mls/hr Q8H IV 03/30/17 09:00 04/28/17 23:59 03/31/17 10:52 125 MLS/HR Nicotine (Nicoderm Cq 21MG Patch) 1 patch QAM TD 03/30/17 15:00 04/29/17 14:59 03/31/17 08:28 1 PATCH (Nicole Vences CRNP) Objective Vital Signs Date Time Temp Pulse Resp B/P (MAP) Pulse Ox O2 Delivery O2 Flow Rate FiO2 03/31/17 12:04 74 119/79 (92) 03/31/17 12:02 69 93/63 (73) 03/31/17 12:00 63 100/62 (75) 03/31/17 11:38 36.2 68 18 128/72 (90) 98 Room Air 03/31/17 09:48 97 Room Air 03/31/17 08:09 36.3 65 16 132/70 (90) 97 Room Air 03/31/17 00:16 Room Air 03/30/17 23:38 36.6 71 20 122/75 (91) 98 Room Air 68 107/67 (80) 77 116/76 (89) 03/30/17 16:56 71 98/62 (74) 73 99/64 (76) 75 102/67 (79) 03/30/17 16:02 36.5 67 18 107/67 (80) 98 Room Air 03/30/17 16:00 Room Air (Nicole Vences CRNP) Physical Exam Notes: General: no distress Eyes: normal inspection, PERLL Respiratory: chest non tender, clear to auscultation, normal breath sounds, no respiratory distress, no accessory muscle use Cardiac: regular rate and rhythm, no rub or gallop, no murmur, no edema, no jvd GI/: active bowel sounds, no abd pain or tenderness, soft, non distended Extremities: normal range of motion, normal strength, non tender Neuro/Psych: alert and oriented x 3, normal mood and affect Skin: normal color, dry (Nicole Vences CRNP) Laboratory Results Last 24 Hours Test 03/30/17 18:15 03/31/17 07:49 Urine Random Sodium 6 mEq/L White Blood Count 4.75 K/uL Red Blood Count 4.08 M/uL Hemoglobin 13.2 g/dL Hematocrit 36.3 % Mean Corpuscular Volume 89.0 fL Mean Corpuscular Hemoglobin 32.4 pg Mean Corpuscular Hemoglobin Concent 36.4 g/dl Platelet Count 168 K/uL Mean Platelet Volume 9.2 fL Neutrophils (%) (Auto) 60.5 % Lymphocytes (%) (Auto) 27.6 % Monocytes (%) (Auto) 8.4 % Eosinophils (%) (Auto) 2.9 % Basophils (%) (Auto) 0.2 % Neutrophils # (Auto) 2.87 K/uL Lymphocytes # (Auto) 1.31 K/uL Monocytes # (Auto) 0.40 K/uL Eosinophils # (Auto) 0.14 K/uL Basophils # (Auto) 0.01 K/uL RDW Standard Deviation 41.8 fL RDW Coefficient of Variation 12.9 % Immature Granulocyte % (Auto) 0.4 % Immature Granulocyte # (Auto) 0.02 K/uL Sodium Level 128 mmol/L Potassium Level 4.6 mmol/L Chloride Level 102 mmol/L Carbon Dioxide Level 21 mmol/L Anion Gap 5.0 mmol/L Blood Urea Nitrogen 35 mg/dl Creatinine 1.78 mg/dl Est Creatinine Clear Calc Drug Dose 43.6 ml/min Estimated GFR () 34.8 Estimated GFR (Non- 30.0 BUN/Creatinine Ratio 19.4 Random Glucose 83 mg/dl Calcium Level 8.3 mg/dl Magnesium Level 1.8 mg/dl (Nicole Vences CRNP) Assessment and Plan Ms. Freeman is a 61 F with increased ostomy output and hyponatremia and weakness Hyponatremia/acute kidney injury/dehydration/high ileostomy output-- - continue fluid restriction - Na is 128 today -creatinine 3.17 on admission, has improved with IV hydration - Creat 1.78 today . Diarrhea - Start cholestyramine 4 times a day pending Stool culture and c.diff - if negative will restart lomotil, with history of Crohn's this maybe a flare , patient has not found relief in the past with Imodium Crohn's/status post ileostomy placement -Had colonic stump enema. - Abdominal x-ray negative.On Humira as outpatient. Polymyalgias and polyarthralgias - continue tramadol . 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 Any exceptions or clarifications are listed here: None Patient was done and a barium enema upon my evaluation. Her sodium has come up nicely to 128 with fluid restriction which we will continue we continue to have difficulties with her stool cultures and once again these have been reordered to rule out infectious etiologies of her diarrheal illness that caused initial presentation We will continue to rule out infectious causes if negative we will pursue bowel motility reducing medications forwarding the results of her barium enema to her outpatient physician provider to consider reversal of her ostomy Documented By: Marlon Fowler (Marlon Fowler M.D.)
[2017-03-31] MEDS ORDERED: KETOROLAC TROMETHAMINE 30 MG/ML VIAL IV STA (20:27)
[2017-04-01] MEDS: NSS + 20MEQ KCL 1000ML 1,000 ML IV SCH ×2 (02:43→08:55)
[2017-04-01 07:04] LABS: BASO % 0.6 %; BASO ABS # 0.02 K/uL (0-0.2); EOS % 5.5 %; EOS ABS # 0.19 K/uL (0-0.5); HEMATOCRIT 32.6 % (37-47); HEMOGLOBIN 11.6 g/dL (12.0-16.0); IG# 0.01 K/uL (0.00-0.02); LYMPH % 41.7 %; LYMPH ABS # 1.43 K/uL (1.2-3.4); MEAN CELL VOLUME 89.6 fL (80-100); MEAN CORPUSCULAR HEMOGLOBIN 31.9 pg (25-34); MEAN CORPUSCULAR HGB CONC 35.6 g/dl (32-36); MEAN PLATELET VOLUME 9.1 fL (7.4-10.4); MONO % 11.7 %; NEUT % 40.2 %; NEUT ABS # 1.38 K/uL (1.4-6.5); PLATELET COUNT 150 K/uL (130-400); RED CELL DISTRIBUTION WIDTH CV 13.3 % (11.5-14.5); WHITE BLOOD COUNT 3.43 K/uL (4.8-10.8)
[2017-04-01 07:39] LABS: CALCIUM 8.2 mg/dl (8.5-10.1); CREATININE 1.77 mg/dl (0.60-1.20); POTASSIUM 4.9 mmol/L (3.5-5.1)
[2017-04-01 08:10] VITALS: BP 107/54; PULSE 60; TEMP 36.5; O2SAT 99
[2017-04-01] MEDS: CYANOCOBALAMIN 100 MCG TAB (VIT B-12) PO SCH (08:26)
[2017-04-01] MEDS: APIXABAN 2.5 MG TAB PO SCH (08:26)
[2017-04-01] MEDS: CHOLESTYRAMINE LIGHT 4 GM PKT PO SCH ×2 (08:27→12:29)
[2017-04-01] MEDS: NICOTINE 21 MG/24 HR TDSY TD SCH (08:28)
[2017-04-01] MEDS: CHOLECALCIFEROL 1000 INTER.UNIT TAB PO SCH (08:29)
[2017-04-01] MEDS: ATORVASTATIN 20 MG TAB PO SCH (08:29)
[2017-04-01] MEDS: MONTELUKAST SOD 10 MG TAB PO SCH (08:29)
[2017-04-01] MEDS: PANTOprazole SOD 40 MG TAB PO SCH (08:29)
[2017-04-01] MEDS: LACTOBACILLUS ACIDOPHILUS (FLORANEX) TAB PO SCH ×2 (08:30→12:29)
[2017-04-01] MEDS: LORATADINE 10 MG TAB PO SCH (08:30)
[2017-04-01] MEDS: TRAMADOL HCL 50 MG TAB PO PRN (08:52)
[2017-04-01] MEDS ORDERED: DIPHENOXYLATE/ATROPINE 2.5/0.025MG TAB PO ONE (10:45)
[2017-04-01] MEDS ORDERED: DIPHENOXYLATE/ATROPINE 2.5/0.025MG TAB PO PRN (10:45)
[2017-04-01] MEDS ORDERED: QSTP PO (10:48)
[2017-04-01] MEDS ORDERED: DIPH-416 PO ×3 (10:48→11:48)
--- NOTE | 2017-04-01 11:00 | Discharge Instructions ---
Discharge Instructions Date of Service Apr 01, 2017. Admission Reason for Admission: Acute Kidney Injury, Hyponatremia Discharge Discharge Diagnosis / Problem: JULIETTE, hyponatremia Discharge Goals Goal(s): Improve function, Improve disease control Activity Recommendations Activity Limitations: resume your previous activity Lifting Limitations: gradually increase as tolerated . Instructions / Follow-Up Instructions / Follow-Up Please follow up with your primary care provider within about a week, please follow up with neurology and GI as well. Please hold off on taking loratadine and trazadone while taking the the diphenoxylate/atropine (Lomotil) as it may exacerbate your dry eyes/mouth and cause drowsiness when combined. You may also find that the tramadol and Lomotil increases your drowsiness so you may want to cut your tramadol dose in half while on this medication until you see how it effects you.If you find that you are emptying your ostomy bag less than 2-3 times per day, you should cut back on how much Lomotil you are taking for instance changing to twice daily dosing from four. Please have your blood work drawn tomorrow. Results will go to your primary care provider. Current Hospital Diet Patient's current hospital diet: Regular Diet Discharge Diet Recommended Diet: Regular Diet Pending Studies Studies pending at discharge: yes List of pending studies: stool cultures Medical Emergencies . Who to Call and When: Medical Emergencies: If at any time you feel your situation is an emergency, please call 911 immediately. . Non-Emergent Contact Non-Emergency issues call your: Primary Care Provider . . "Provider Documentation" section prepared by Nicole Vences. . VTE Core Measure Inpt VTE Proph given/why not?: Other Anticoagulation
--- NOTE | 2017-04-01 11:19 | Discharge Summary ---
Discharge Summary Date of Service Apr 01, 2017. Discharge Summary Admission Date: Mar 29, 2017 at 22:29 Discharge Date: Apr 01, 2017 Discharge Disposition: Home Principal Diagnosis: JULIETTE, hyponatremia Problems/Secondary Diagnoses: Diarrhea - Start cholestyramine 4 times a day pending Stool culture and c.diff - if negative will restart lomotil, with history of Crohn's this maybe a flare , patient has not found relief in the past with Imodium Crohn's/status post ileostomy, Polymyalgias and polyarthralgias, Pulmonary emboli/history of GI bleeding, GERD Immunizations: Have You Had Influenza Vaccine: Unknown History of Tetanus Vaccine?: Unknown History of Pneumococcal: Unknown History of Hepatitis B Vaccine: Unknown Procedures: BARIUM ENEMA AIR ROUTINE CLINICAL HISTORY: do we do gastrografin enemas? surgeon request to eval reversalpreoperative evaluation COMPARISON STUDY: None FLUOROSCOPY TIME: 40 seconds. FINDINGS: Limited study as the patient could not tolerate the enema despite 2 independent effort. Gastrografin is administered via a rectal tube. There is reasonable opacification of the bowel. There is mild chronic sigmoid diverticulosis. There is no evidence for acute diverticulitis. There is no contrast extravasation. Residual components of the colon extending to the left flank region. IMPRESSION: 1. Somewhat limited exam as patient cannot tolerate the enema. 2. Several scattered to mid sigmoid diverticuli with no evidence of diverticulitis. 3. Remainder of the sigmoid colon extends to the left flank with no evidence for extravasation or obstructive change. Electronically signed by: Barrie Kurtz M.D. 03/31/2017 9:37 AM ABDOMEN 2VIEW W/PA CHEST RTN CLINICAL HISTORY: ABDOMINAL PAIN/GI pain COMPARISON STUDY: 09/26/2016 FINDINGS: The soft tissues, psoas shadows, renal outlines and intestinal gas pattern appear normal. There is no evidence for bowel obstruction. There is no evidence for free intraperitoneal air. No abnormal abdominal calcifications are seen. A frontal view of the chest was performed and is unremarkable. IMPRESSION: No acute process of the chest or abdomen Electronically signed by: Barrie Kurtz M.D. 03/29/2017 8:20 PM Medication Reconciliation New Medications: Diphenoxylate/Atropine (Lomotil) Tab 2 TAB PO QID for 5 Days, #40 TAB Cholestyramine (Cholestyramine Light) 4 Gm Pack 4 GM PO QID for 30 Days, #30 DOSE Continued Medications: Adalimumab (Humira Pen) 40 Mg/0.8 Ml Kit 40 MG SC [id number] Apixaban (Eliquis) 5 Mg Tab 5 MG PO BID, TAB Atorvastatin (Lipitor) 20 Mg Tab 20 MG PO QAM Cholecalciferol (Vitamin D3) 2,000 Unit Cap 2000 INTER.UNIT PO DAILY, CAP Cyanocobalamin (Vitamin B12) 1,000 Mcg Tab 1000 MCG PO QAM Montelukast Sod (Montelukast Sodium) 10 Mg Tab 10 MG PO QAM Ondansetron Hcl (Zofran) 4 Mg Tab 4 MG PO Q8H PRN for Nausea, TAB Pantoprazole (Pantoprazole Sodium) 40 Mg Tab 40 MG PO QAM Probiotic Product (Probiotic) 1 Cap Cap 1 CAP PO QAM Tramadol HCl (Tramadol HCl) 50 Mg Tab 50 MG PO Q8 PRN for Pain Trazodone Hcl (Desyrel) 50 Mg Tab 50 MG PO HS PRN for Sleep Discontinued Medications: Loperamide Hcl (Loperamide Hcl) 1 Mg/5 Ml Liq 10 ML PO QID Loratadine (Claritin) 10 Mg Tab 10 MG PO QAM Discharge Exam ROS Constitutional: no chills, aches, sweats or fever Respiratory: no sob,cough, sputum, or wheezing, does have some nasal congestion with drainage. Cardiac: bilateral chest pain reproducible to palpation, palpitations, edema, orthopnea or lightheadedness GI: no abdominal pain, nausea, vomiting, diarrhea or constipation : no dysuria or hesitancy Neuro: numb lips Extremities: no joint pain or weakness Skin: no rash All other systems reviewed and negative General: no distress Eyes: normal inspection, PERLL Respiratory: chest tender to palpation above breasts, clear to auscultation, normal breath sounds, no respiratory distress, no accessory muscle use Cardiac: regular rate and rhythm, no rub or gallop, no murmur, no edema, no jvd GI/: active bowel sounds, no abd pain or tenderness, soft, non distended Extremities: normal range of motion, normal strength, non tender Neuro/Psych: alert and oriented x 3, normal mood and affect, pbx inspector II-XII intact Skin: normal color, dry Hospital Course Ms. Freeman is a 61 F with increased ostomy output and hyponatremia and weakness Hyponatremia/acute kidney injury/dehydration/high ileostomy output-- - fluid restriction and nss infusion lead to increase in sodium which was 125 on admission and 132 today - creatinine 3.17 on admission, has improved with IV hydration - Creat 1.77 today - I think she can discontinue her fluid restriction for home as the electrolyte losses were likely due to high ostomy output - repeat prp outpatient tomorrow Diarrhea - continue cholestyramine 4 times a day, added Lomotil for home - discussed risks and benefits and interactions with her other medications - C diff negative, stool cultures pending - discontinue Imodium Crohn's/status post ileostomy placement -Had colonic stump enema. - Abdominal x-ray negative.On Humira as outpatient. Polymyalgias and polyarthralgias - continue tramadol . 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 Discussed with Nicole Vences NP and agree with findings and plan as documented in the note. Any exceptions or clarifications are listed here: None Patient some initial concerns about going home but she did well with regard to her diet her ostomy output is about the same her cultures have been negative Signs are stable Abdomen is normal active bowel sounds soft nontender ostomy does maintain a liquidy brown liquid with some fibrous formed areas she says this is her usual ostomy output She does some bleeding from her rectum after her barium enema the study however was fairly unremarkable the exception of diverticulosis Patient presented with hyponatremia hypokalemia from diarrheal illness which proved not to be bacterially infectious or from C. difficile she is supported with hydration and returns to her motility reducing agents with a referral to outpatient surgery for possible reversal of her ostomy Documented By: Marlon Fowler Total Time Spent: Greater than 30 minutes This includes examination of the patient, discharge planning, medication reconciliation, and communication with other providers. Discharge Instructions Please refer to the electronic Patient Visit Report (Discharge Instructions) for additional information. Additional Copies To Oc Sesay PA-C
[2017-04-01] MEDS ORDERED: DIPHENOXYLATE/ATROPINE 2.5/0.025MG TAB PO SCH (12:00)
[2017-04-01 14:40] VITALS: BP 107/54; PULSE 60; TEMP 36.5; O2SAT 99
[2017-04-01] MEDS: ACETAMINOPHEN 325 MG TAB PO PRN (15:41)
[2017-04-01 16:10] VITALS: BP 145/75; PULSE 68; TEMP 36.6; O2SAT 100
== END 2017-04-01 16:52 | disposition home or self-care (01) | DRG 641 ==
LOC: EDBD 17:48 → C.EDD 17:49 → ENRESERV 22:27 → C.MS4W 22:29 → ENRESERV 22:53 → C.MS4W 03-31 21:27
PROVIDERS: ADMIT Hospitalist; ATTEND Internal Medicine
DX: E87.1 Hypo-osmolality and hyponatremia (principal); N17.9 Acute kidney failure, unspecified; K50.90 Crohn's disease, unspecified, without complications; M35.3 Polymyalgia rheumatica; K21.9 Gastro-esophageal reflux disease without esophagitis; E86.0 Dehydration; R19.7 Diarrhea, unspecified; Z93.2 Ileostomy status; Z86.711 Personal history of pulmonary embolism; Z87.891 Personal history of nicotine dependence; Z79.01 Long term (current) use of anticoagulants

== ENCOUNTER 2017-04-08 01:04 | Emergency (ER) | payer OTHER ==
[~2017-04-08] VITALS: Ht 167.6 cm; Wt 124.5 kg
[2017-04-08 01:04] VITALS: TEMP 37.1; Ht 167.6 cm; Wt 124.5 kg
[~2017-04-08 01:04] MED LIST changes: +APIX1TAB3 PO; +ATOR-22 PO; -ATOR-54 PO; +CHOL2000 PO; -CLR10 PO; +DIPH-416 PO; -LOPELIQ6 PO; -MONT1TAB3 PO; -PANT40TA PO; +PANT40TA2 PO; +QSTP PO; +SNG10 PO; -TRAM-10 PO; +TRAZ-120 PO; -TRAZ50TA35 PO; +ULT50 PO; -VITAMIN D PO; -WARF2.5T8 PO; -WARF5TAB7 PO
[2017-04-08 01:51] LABS: BASO % 0.3 %; BASO ABS # 0.02 K/uL (0-0.2); EOS % 3.6 %; EOS ABS # 0.24 K/uL (0-0.5); HEMATOCRIT 38.9 % (37-47); HEMOGLOBIN 13.6 g/dL (12.0-16.0); IG# 0.03 K/uL (0.00-0.02); LYMPH % 22.6 %; LYMPH ABS # 1.51 K/uL (1.2-3.4); MEAN CELL VOLUME 90.7 fL (80-100); MEAN CORPUSCULAR HEMOGLOBIN 31.7 pg (25-34); MEAN PLATELET VOLUME 8.8 fL (7.4-10.4); MONO % 7.8 %; MONO ABS # 0.52 K/uL (0.11-0.59); NEUT % 65.3 %; NEUT ABS # 4.35 K/uL (1.4-6.5); PLATELET COUNT 217 K/uL (130-400); RED CELL DISTRIBUTION WIDTH CV 13.6 % (11.5-14.5); RED CELL DISTRIBUTION WIDTH SD 44.9 fL (36.4-46.3); WHITE BLOOD COUNT 6.67 K/uL (4.8-10.8)
[2017-04-08] MEDS: MoRPHine SULFATE 4 MG/ML 1 ML CARP\\VIAL IV STA (02:07)
[2017-04-08] MEDS: SODIUM CHLORIDE 0.9% 1000ML 1,000 ML IV STA (02:08)
[2017-04-08 02:15] LABS: ALBUMIN 3.3 gm/dl (3.4-5.0); ALT/SGPT 24 U/L (12-78); AST/SGOT 17 U/L (15-37); BLOOD UREA NITROGEN 22 mg/dl (7-18); CALCIUM 9.2 mg/dl (8.5-10.1); CARBON DIOXIDE 22 mmol/L (21-32); CREATININE 1.27 mg/dl (0.60-1.20); GLUCOSE 95 mg/dl (70-99); POTASSIUM 4.4 mmol/L (3.5-5.1); SODIUM 137 mmol/L (136-145)
[2017-04-08 02:20] LABS: ALKALINE PHOSPHATASE 116 U/L (45-117); CKMB 0.6 ng/ml (0.5-3.6); TOTAL PROTEIN 7.2 gm/dl (6.4-8.2)
--- NOTE | 2017-04-08 02:36 | EMERGENCY ROOM VISIT NOTE ---
History Report prepared by Chon: Lorene Diaz Under the Supervision of: Dr. Evan Gonzales M.D. First contact with patient: 01:05 Chief Complaint: RESPIRATORY PROBLEMS Stated Complaint: BREATHING DIFFICULTY History of Present Illness The patient is a 62 year old female who presents to the Emergency Room with complaints of persistent respiratory problems that began today. She reports that she currently has a headache, which she rates a 9/10, noting she has a history of headaches. She notes that she feels like she has Aiden horses in her hands, bilateral leg pain, tingling in her lips, and persistent thirst. The patient has noticed persistent diarrhea in her ostomy bag, noting she has a history of Crohn's disease. She reports that she stopped smoking on 01/26/17 and denies a history of COPD. Source of History: patient Onset: today Position: other (pulmonary system) Quality: other (respiratory problems) Timing: other (persistent) Associated Symptoms: + headache (9/10), + diarrhea Note: Associated symptoms include: feels like she has Aiden horses in her hands, bilateral leg pain, tingling in her lips, and persistent thirst. Review of Systems See HPI for pertinent positives & negatives. A total of 10 systems reviewed and were otherwise negative. Past Medical & Surgical Medical Problems: (1) Abdominal pain (2) Bowel obstruction (3) Cellulitis (4) Crohn's disease involving terminal ileum (5) Crohns disease (6) Diarrhea (7) Hyponatremia (8) Partial small bowel obstruction (9) Postmenopausal bleeding (10) Pulmonary emboli (11) Rectal bleeding (12) right eye pain and decreased vision for 1 day (13) RUQ abdominal pain (14) SBO (small bowel obstruction) Family History Patient reports no known family medical history. Social History Smoking Status: Former Smoker Alcohol Use: none Drug Use: none Marital Status: Housing Status: lives with family Occupation Status: unemployed Current/Historical Medications Scheduled Adalimumab (Humira Pen), 40 MG SC [id number] Apixaban (Eliquis), 5 MG PO BID Atorvastatin (Lipitor), 20 MG PO QAM Cholecalciferol (Vitamin D3), 2,000 INTER.UNIT PO DAILY Cholestyramine (Cholestyramine Light), 4 GM PO QID Cyanocobalamin (Vitamin B12), 1,000 MCG PO QAM Montelukast Sod (Montelukast Sodium), 10 MG PO QAM Pantoprazole (Pantoprazole Sodium), 40 MG PO QAM Probiotic Product (Probiotic), 1 CAP PO QAM Vancomycin Hcl (Vancomycin), 1 TAB PO QID Scheduled PRN Ondansetron Hcl (Zofran), 4 MG PO Q8H PRN for Nausea Tramadol HCl (Tramadol HCl), 50 MG PO Q8 PRN for Pain Trazodone Hcl (Desyrel), 50 MG PO HS PRN for Sleep Allergies Coded Allergies: No Known Allergies (Verified , 04/08/17) Physical Exam Vital Signs Date Time Temp Pulse Resp B/P (MAP) Pulse Ox O2 Delivery O2 Flow Rate FiO2 04/08/17 09:32 68 154/88 04/08/17 08:04 72 142/78 04/08/17 05:14 61 04/08/17 03:41 72 20 144/95 98 Room Air 04/08/17 02:36 69 16 98 04/08/17 02:31 139/72 04/08/17 02:01 72 17 126/75 98 04/08/17 01:48 121/69 04/08/17 01:34 69 16 98 04/08/17 01:11 75 04/08/17 01:07 179/108 04/08/17 01:04 Room Air 04/08/17 01:04 100 Room Air 04/08/17 01:04 37.1 82 16 179/108 100 Room Air Physical Exam GENERAL: Patient is mildly anxious appearing and in no acute distress. HEENT: No acute trauma, normocephalic atraumatic, mucous membranes moist, no nasal congestion, no scleral icterus. NECK: No stridor, no adenopathy, no meningismus, trachea is midline. LUNGS: No dyspnea. Clear to auscultation and equal bilaterally. No wheeze, no rhonchi. HEART: Regular rate and rhythm. No murmurs, rubs, gallops appreciated. ABDOMEN: Ostomy bad with liquid yellow stool, some mild skin irritation. Soft, nontender, bowel sounds positive, no masses appreciated, no peritonitis. BACK: No midline tenderness, no CVA tenderness EXTREMITIES: Normal motion all extremities, no cyanosis, no edema. NEUROLOGIC: Alert and oriented, no acute motor or sensory deficits, no focal weakness, cranial nerves grossly intact. SKIN: No rash, no jaundice, no diaphoresis. Medical Decision & Procedures ER Provider Diagnostic Interpretation: X ray results are stated below per my interpretation: Chest: 1 view: No infiltrate, no effusion, normal cardiac border. Laboratory Results 04/08/17 01:30 Red Blood Count 4.29, Mean Corpuscular Volume 90.7, Mean Corpuscular Hemoglobin 31.7, Mean Corpuscular Hemoglobin Concent 35.0, Mean Platelet Volume 8.8, Neutrophils (%) (Auto) 65.3, Lymphocytes (%) (Auto) 22.6, Monocytes (%) (Auto) 7.8, Eosinophils (%) (Auto) 3.6, Basophils (%) (Auto) 0.3, Neutrophils # (Auto) 4.35, Lymphocytes # (Auto) 1.51, Monocytes # (Auto) 0.52, Eosinophils # (Auto) 0.24, Basophils # (Auto) 0.02 04/08/17 01:30 Test 04/08/17 01:30 White Blood Count 6.67 K/uL (4.8-10.8) Red Blood Count 4.29 M/uL (4.2-5.4) Hemoglobin 13.6 g/dL (12.0-16.0) Hematocrit 38.9 % (37-47) Mean Corpuscular Volume 90.7 fL (80-100) Mean Corpuscular Hemoglobin 31.7 pg (25-34) Mean Corpuscular Hemoglobin Concent 35.0 g/dl (32-36) Platelet Count 217 K/uL (130-400) Mean Platelet Volume 8.8 fL (7.4-10.4) Neutrophils (%) (Auto) 65.3 % Lymphocytes (%) (Auto) 22.6 % Monocytes (%) (Auto) 7.8 % Eosinophils (%) (Auto) 3.6 % Basophils (%) (Auto) 0.3 % Neutrophils # (Auto) 4.35 K/uL (1.4-6.5) Lymphocytes # (Auto) 1.51 K/uL (1.2-3.4) Monocytes # (Auto) 0.52 K/uL (0.11-0.59) Eosinophils # (Auto) 0.24 K/uL (0-0.5) Basophils # (Auto) 0.02 K/uL (0-0.2) RDW Standard Deviation 44.9 fL (36.4-46.3) RDW Coefficient of Variation 13.6 % (11.5-14.5) Immature Granulocyte % (Auto) 0.4 % Immature Granulocyte # (Auto) 0.03 K/uL (0.00-0.02) Anion Gap 6.0 mmol/L (3-11) Est Creatinine Clear Calc Drug Dose 61.1 ml/min Estimated GFR () 52.0 Estimated GFR (Non- 44.9 BUN/Creatinine Ratio 17.6 (10-20) Calcium Level 9.2 mg/dl (8.5-10.1) Total Bilirubin 0.3 mg/dl (0.2-1) Direct Bilirubin < 0.1 mg/dl (0-0.2) Aspartate Amino Transf (AST/SGOT) 17 U/L (15-37) Alanine Aminotransferase (ALT/SGPT) 24 U/L (12-78) Alkaline Phosphatase 116 U/L (45-117) Total Creatine Kinase 38 U/L (26-192) Creatine Kinase MB 0.6 ng/ml (0.5-3.6) Creatine Kinase MB Ratio 1.6 (0-3.0) Troponin I < 0.015 ng/ml (0-0.045) Total Protein 7.2 gm/dl (6.4-8.2) Albumin 3.3 gm/dl (3.4-5.0) Date/Time Source Procedure Growth Status 04/08/17 01:15 Stool C.difficile Toxin B Gene (PCR) - Final Positive for C. difficile toxin B gene Complete Medications Administered Medications (Trade) Dose Ordered Sig/Rachael Route Start Time Stop Time Status Last Admin Dose Admin Morphine Sulfate (MoRPHine SULFATE INJ) 4 mg NOW STAT IV 04/08/17 01:55 04/08/17 01:56 DC 04/08/17 02:07 4 MG Sodium Chloride 1,000 ml @ 999 mls/hr Q1H1M STAT IV 04/08/17 01:55 04/08/17 02:55 DC 04/08/17 02:08 999 MLS/HR Vancomycin HCl (Vancomycin Oral Soln) 125 mg NOW STAT PO 04/08/17 03:16 04/08/17 03:17 DC 04/08/17 03:43 125 MG Acetaminophen (Tylenol Tab) 1,000 mg NOW STAT PO 04/08/17 05:35 04/08/17 05:36 DC 04/08/17 05:50 1,000 MG ED Course 0109: The patient was evaluated in room B12. A complete history and physical exam was performed. 0159: I reevaluated the patient, who was resting. She states that she has had headaches for the last few days, which she notes she gets regularly. The patient states that she has been taking Tramadol and Tylenol, which have not been helping. She notes that she cannot have NSAID medications. 0229: I reevaluated the patient. She states that she is feeling better. She requested that I call her surgeon in [place] to see how she should treat her diarrhea, but because there is no need for surgery I suggested that she follow up with him in the morning. The patient is ready for discharge. Medical Decision Differential: Viral, Bacterial, Parasitic, Iatrogenic, C-Diff, Malabsorption, Irritable Bowel Disease, IBS, Ischemic Bowel, amongst other pathologies entertained. 62 yr old female arrives for evaluation of diarrhea associated with tingling of fingers/lips, leg cramping and feeling short of breath. She is clearly anxious and is also a bit upset on arrival with me that she is still having diarrhea after he discharge several days ago. She is mildly dehydrated and given fluids. Notes headache which she used to be on oxy for but has been without, then goes on to say she just took Tylenol, tramadol doesn't work, and that she can't have NSAIDs, thus I did defer to small dose morphine which I felt may help a bit with bowels as well. She has no evidence of meningitis, encephalitis , nor reason to suspect ICH. She admits she has had similar headaches in past. Labs looks quite good compared to recent. No wbc elevation. Abdomen is soft/ non-tender. Cdiff is positive, which was negative last week. She does not meet criteria for admission at this time. Vitals stable throughout and patient sleeping comfortably, easily awoken to explain findings. She has no evidence of bowel obstruction nor surgical abdomen at this time. WIll start her on QID Vanco which Rx was sent to her pharmacy. Her SHOB is no longer bothering here. She has no calf swelling/pain. She has no PE findings and I feel that she does not meet criteria for CTPE study at this time. CXR clear and vitals look good. Admits her sister smokes in house still and I discussed this could cause some worsening of her COPD. Medication Reconcilliation Current Medication List: was personally reviewed by me Blood Pressure Screening Patient's blood pressure: Normal blood pressure Blood pressure disposition: Did not require urgent referral Impression Primary Impression: Clostridium difficile diarrhea Additional Impression: Dehydration Scribe Attestation The scribe's documentation has been prepared under my direction and personally reviewed by me in its entirety. I confirm that the note above accurately reflects all work, treatment, procedures, and medical decision making performed by me. Departure Information Dispostion Home / Self-Care Prescriptions Vancomycin Hcl (Vancomycin) 125 Mg Cap 1 TAB PO QID for 14 Days, #56 TAB Prov: Evan Gonzales M.D. 04/08/17 Forms HOME CARE DOCUMENTATION FORM, IMPORTANT VISIT INFORMATION Patient Instructions Clostridium Difficile Infec, My [facility] Additional Instructions Call your Surgeon and Industrial Order Clerk in the the morning to make them aware of the findings of C-Diff infection. Problem Qualifiers
[2017-04-08] MEDS ORDERED: VANC5CAP PO (03:20)
[2017-04-08 03:41] VITALS: O2SAT 98
[2017-04-08] MEDS: VANCOMYCIN HCL 125 MG/2.5ML SOLN PO STA (03:43)
[2017-04-08] MEDS: ACETAMINOPHEN 500 MG TAB PO STA (05:50)
--- NOTE | 2017-04-08 06:36 | DIAGNOSTIC IMAGING REPORT ---
CHEST ONE VIEW PORTABLE HISTORY: 62 years-old Female SHOB acute shortness of breath COMPARISON: Acute abdominal series radiographs 03/29/2017 TECHNIQUE: Portable AP view of the chest FINDINGS: Cardiomediastinal and hilar silhouettes are within normal limits. Atherosclerosis of the aorta. There is no pneumothorax, pleural effusion, focal airspace consolidation or overt pulmonary edema. Degenerative changes are seen within the shoulders and spine. IMPRESSION: No acute process. The above report was generated using voice recognition software. It may contain grammatical, syntax or spelling errors. Electronically signed by: Neil Bryan M.D. 04/08/2017 6:35 AM Dictated Date/Time: 04/08/2017 6:34 AM
[2017-04-08 09:32] VITALS: BP 154/88; PULSE 68
== END 2017-04-08 09:33 | disposition home or self-care (01) ==
LOC: EDBD 01:04 → C.EDB 01:05
DX: A04.72 Enterocolitis due to Clostridium difficile, not specified as recurrent (principal); E86.0 Dehydration; K50.90 Crohn's disease, unspecified, without complications; Z87.891 Personal history of nicotine dependence

== ENCOUNTER 2017-04-12 11:55 | Emergency (ER) | payer OTHER ==
[~2017-04-12] VITALS: Ht 167.6 cm; Wt 120.5 kg
[~2017-04-12 11:55] MED LIST changes: -DIPH-416 PO; +VANC5CAP PO
[2017-04-12 12:04] VITALS: Ht 167.6 cm; Wt 120.5 kg
[2017-04-12] MEDS ORDERED: VANC5CAP PO (12:35)
[2017-04-12] MEDS ORDERED: ACET-1175 PO (12:37)
[2017-04-12] MEDS ORDERED: SODIUM CHLORIDE 0.9% 1000ML 1,000 ML IV STA (12:45)
[2017-04-12] MEDS ORDERED: LORAZEPAM 2 MG/ML 1 ML VIAL IV STA (12:45)
--- NOTE | 2017-04-12 12:56 | EMERGENCY ROOM VISIT NOTE ---
History Report prepared by Chon: Jose Healy Under the Supervision of: Dr. Riley Bailon M.D. First contact with patient: 12:02 Chief Complaint: ILLNESS Stated Complaint: ILLNESS (BEING TX FOR C-DIFF) History of Present Illness The patient is a 62 year old female who presents to the Emergency Room with complaints of worsening pain in her calves and feet bilaterally that began today. The patient describes her pain as "Aiden Horses" or cramping sensations. She has not taken any medications for her pain. She also notes that she is currently diagnosed with C-Difficile and is on Vancomycin. She notes that she has been drinking a lot of fluids lately. Source of History: patient Onset: today Position: leg (bilateral), foot (bilateral) Quality: cramping (Aiden horses) Timing: worsening Note: Patient had C-difficile. Review of Systems See HPI for pertinent positives & negatives. A total of 10 systems reviewed and were otherwise negative. Past Medical & Surgical Medical Problems: (1) Abdominal pain (2) Bowel obstruction (3) Cellulitis (4) Crohn's disease involving terminal ileum (5) Crohns disease (6) Diarrhea (7) Hyponatremia (8) Partial small bowel obstruction (9) Postmenopausal bleeding (10) Pulmonary emboli (11) Rectal bleeding (12) right eye pain and decreased vision for 1 day (13) RUQ abdominal pain (14) SBO (small bowel obstruction) Family History Patient reports no known family medical history. Social History Smoking Status: Former Smoker Alcohol Use: none Drug Use: none Marital Status: Housing Status: lives with family Occupation Status: unemployed Current/Historical Medications Scheduled Acetaminophen (Tylenol), 325 MG PO UD Adalimumab (Humira Pen), 40 MG SC [id number] Apixaban (Eliquis), 5 MG PO BID Atorvastatin (Lipitor), 20 MG PO QAM Cholecalciferol (Vitamin D3), 2,000 INTER.UNIT PO QAM Cyanocobalamin (Vitamin B12), 1,000 MCG PO QAM Montelukast Sod (Montelukast Sodium), 10 MG PO QAM Pantoprazole (Pantoprazole Sodium), 40 MG PO QAM Probiotic Product (Probiotic), 1 CAP PO QAM Vancomycin Hcl (Vancomycin), 125 MG PO Q6 Scheduled PRN Ondansetron Hcl (Zofran), 4 MG PO Q8H PRN for Nausea Tramadol HCl (Tramadol HCl), 50 MG PO Q8 PRN for Pain Trazodone Hcl (Desyrel), 50 MG PO HS PRN for Sleep Allergies Coded Allergies: No Known Allergies (Verified , 04/12/17) Physical Exam Vital Signs Date Time Temp Pulse Resp B/P (MAP) Pulse Ox O2 Delivery O2 Flow Rate FiO2 04/12/17 13:21 75 22 121/71 98 Room Air 04/12/17 12:04 37.2 84 18 139/74 97 Room Air 04/12/17 12:03 85 Physical Exam GENERAL: Awake, alert, well-appearing, in no acute distress HENT: Normocephalic, atraumatic. Oropharynx unremarkable. EYES: Normal conjunctiva. Sclera non-icteric. NECK: Supple. No nuchal rigidity. FROM. No JVD. RESPIRATORY: Clear to auscultation. CARDIAC: Regular rate, normal rhythm. Extremities warm and well perfused. Pulses equal. ABDOMEN: Soft, non-distended. No tenderness to palpation. No rebound or guarding. No masses. Ostomy bag is in place. Ostomy bag is full. RECTAL: Deferred. MUSCULOSKELETAL: Chest examination reveals no tenderness. The back is symmetrical on inspection without obvious abnormality. There is no CVA tenderness to palpation. No joint edema. LOWER EXTREMITIES: Calves are equal size bilaterally and non-tender. No edema. No discoloration. NEURO: Normal sensorium. No sensory or motor deficits noted. SKIN: No rash or jaundice noted. Medical Decision & Procedures ER Provider Diagnostic Interpretation: Radiology results as stated below per my review and radiologist interpretation: ABDOMEN 2VIEW W/PA CHEST RTN CLINICAL HISTORY: 62 years-old Female presenting with Pt c/o diffuse abd pain . TECHNIQUE: PA view of the chest and supine and upright views of the abdomen were obtained. COMPARISON: 04/08/2017 and 03/29/2017. FINDINGS: Atherosclerosis of the aortic arch. Cardiac silhouette normal in size. Lungs and pleural spaces clear. Nonobstructive bowel gas pattern. A right mid abdominal colostomy may be present. No gross pneumoperitoneum. Allowing for bowel gas and stool, no calcifications to suggest nephrolithiasis. Degenerative changes of the spine. IMPRESSION: 1. No acute cardiopulmonary disease. 2. No radiographic evidence of acute intra-abdominal pathology. Electronically signed by: Everton Banks M.D. 04/12/2017 1:53 PM Dictated Date/Time: 04/12/2017 1:51 PM Laboratory Results 04/12/17 12:05 Red Blood Count 4.46, Mean Corpuscular Volume 90.4, Mean Corpuscular Hemoglobin 32.3, Mean Corpuscular Hemoglobin Concent 35.7, Mean Platelet Volume 9.5, Neutrophils (%) (Auto) 66.7, Lymphocytes (%) (Auto) 21.9, Monocytes (%) (Auto) 8.1, Eosinophils (%) (Auto) 2.4, Basophils (%) (Auto) 0.6, Neutrophils # (Auto) 4.17, Lymphocytes # (Auto) 1.37, Monocytes # (Auto) 0.51, Eosinophils # (Auto) 0.15, Basophils # (Auto) 0.04 04/12/17 12:05 Test 04/12/17 12:05 04/12/17 12:20 04/12/17 13:12 White Blood Count 6.26 K/uL (4.8-10.8) Red Blood Count 4.46 M/uL (4.2-5.4) Hemoglobin 14.4 g/dL (12.0-16.0) Hematocrit 40.3 % (37-47) Mean Corpuscular Volume 90.4 fL (80-100) Mean Corpuscular Hemoglobin 32.3 pg (25-34) Mean Corpuscular Hemoglobin Concent 35.7 g/dl (32-36) Platelet Count 245 K/uL (130-400) Mean Platelet Volume 9.5 fL (7.4-10.4) Neutrophils (%) (Auto) 66.7 % Lymphocytes (%) (Auto) 21.9 % Monocytes (%) (Auto) 8.1 % Eosinophils (%) (Auto) 2.4 % Basophils (%) (Auto) 0.6 % Neutrophils # (Auto) 4.17 K/uL (1.4-6.5) Lymphocytes # (Auto) 1.37 K/uL (1.2-3.4) Monocytes # (Auto) 0.51 K/uL (0.11-0.59) Eosinophils # (Auto) 0.15 K/uL (0-0.5) Basophils # (Auto) 0.04 K/uL (0-0.2) RDW Standard Deviation 44.2 fL (36.4-46.3) RDW Coefficient of Variation 13.4 % (11.5-14.5) Immature Granulocyte % (Auto) 0.3 % Immature Granulocyte # (Auto) 0.02 K/uL (0.00-0.02) Est Creatinine Clear Calc Drug Dose 55.2 ml/min Estimated GFR () 47.0 Estimated GFR (Non- 40.6 BUN/Creatinine Ratio 19.3 (10-20) Calcium Level 10.0 mg/dl (8.5-10.1) Total Bilirubin 0.4 mg/dl (0.2-1) Direct Bilirubin 0.1 mg/dl (0-0.2) Aspartate Amino Transf (AST/SGOT) 32 U/L (15-37) Alanine Aminotransferase (ALT/SGPT) 40 U/L (12-78) Alkaline Phosphatase 145 U/L (45-117) Total Protein 7.8 gm/dl (6.4-8.2) Albumin 3.5 gm/dl (3.4-5.0) Lipase 397 U/L (73-393) Urine Color YELLOW Urine Appearance CLEAR (CLEAR) Urine pH 6.0 (4.5-7.5) Urine Specific [place] 1.011 (1.000-1.030) Urine Protein NEG (NEG) Urine Glucose (UA) NEG (NEG) Urine Ketones NEG (NEG) Urine Occult Blood NEG (NEG) Urine Nitrite NEG (NEG) Urine Bilirubin NEG (NEG) Urine Urobilinogen NEG (NEG) Urine Leukocyte Esterase NEG (NEG) Bedside Hemoglobin 15.0 g/dl (12.0-16.0) Bedside Hematocrit 44 % (37-47) Bedside Sodium 134 mEq/L (135-144) Bedside Potassium 4.1 mEq/L (3.3-5.0) Bedside Chloride 101 mEq/L (101-112) Bedside Total CO2 22 mEq/l (24-31) Anion Gap 17.0 mmol/L (16-25) Bedside Blood Urea Nitrogen 29 mg/dl (7-18) Bedside Creatinine 1.4 mg/dl (0.6-1.3) Bedside Glucose (other) 99 mg/dl (70-99) Bedside Ionized Calcium (Oumar) 1.32 mmol/l (1.12-1.32) Labs reviewed by ED physician. Medications Administered Medications (Trade) Dose Ordered Sig/Rachael Route Start Time Stop Time Status Last Admin Dose Admin Sodium Chloride 1,000 ml @ 999 mls/hr Q1H1M STAT IV 04/12/17 12:45 04/12/17 13:45 DC 04/12/17 13:19 999 MLS/HR Lorazepam (Ativan Inj) 1 mg NOW STAT IV 04/12/17 12:45 04/12/17 12:48 DC 04/12/17 13:19 1 MG Parenteral Electrolyte Solution 1,000 ml @ 999 mls/hr Q1H1M ONCE IV 04/12/17 14:00 04/12/17 15:00 DC 04/12/17 14:00 999 MLS/HR ECG Per My Interpretation Indication: other (Cardiac Assessment) Rate (beats per minute): 84 Rhythm: normal sinus Findings: other (No PVCs, No ST elevation or Depression) ED Course 1243: Past medical records reviewed. The patient was evaluated in room C7. A complete history and physical examination was performed. 1245: Ordered Lorazepam 1 mg IV, Sodium Chloride 1000 mL @ 999 mL/hr IV. 1400: Ordered Parenteral Electrolyte Solution 1000 mL @ 999 mL/hr IV. 1420: Upon reexamination the patient is resting in bed. I discussed results and treatment plan with the patient. She verbalizes agreement and understanding. The patient is ready for discharge. Medical Decision Etiologies such as appendicitis, diverticulitis, PUD, biliary pathology, UTI, pancreatitis, obstruction, mesenteric ischemia, aortic pathology, infections, inflammatory bowel disease, renal colic, as well as others were entertained. This is a 62-year-old female presents emergency department with multiple complaints. Patient is complaining of bilateral hand and leg tingling. On physical examination the patient is hyperventilating and pacing around the room. For this reason she was given Ativan. Repeat examination revealed improvement patient's symptoms. I will note that the patient's sodium appears to be at her baseline and she has a soft nonsurgical abdomen on physical examination. Serial abdominal examinations were performed on this patient in the emergency department and I do feel she is well enough to be discharged home for follow-up with her primary care physician. Patient was in agreement with the treatment plan. Medication Reconcilliation Current Medication List: was personally reviewed by me Blood Pressure Screening Patient's blood pressure: Normal blood pressure Impression Primary Impression: Dehydration Scribe Attestation The scribe's documentation has been prepared under my direction and personally reviewed by me in its entirety. I confirm that the note above accurately reflects all work, treatment, procedures, and medical decision making performed by me. Departure Information Dispostion Home / Self-Care Referrals Thang, Ulices Florez D.O. (PCP) Forms HOME CARE DOCUMENTATION FORM, IMPORTANT VISIT INFORMATION, WORK / SCHOOL INSTRUCTIONS Patient Instructions My [facility] Additional Instructions Follow up with DR Klein's office You have been examined and treated today on an emergency basis only. This is not a substitute for, or an effort to provide, complete comprehensive medical care. It is impossible to recognize and treat all injuries or illnesses in a single emergency department visit. It is therefore important that you follow up closely with Dr Sesay. Call as soon as possible for an appointment. Thank you for your time and consideration. I look forward to speaking with you again soon. Please don't hesitate to call us if you have any questions.
[2017-04-12 13:22] LABS: ISTAT CREATININE 1.4 mg/dl (0.6-1.3); ISTAT IONIZED CALCIUM 1.32 mmol/l (1.12-1.32); ISTAT POTASSIUM 4.1 mEq/L (3.3-5.0)
[2017-04-12 13:48] LABS: BASO % 0.6 %; BASO ABS # 0.04 K/uL (0-0.2); EOS % 2.4 %; EOS ABS # 0.15 K/uL (0-0.5); HEMATOCRIT 40.3 % (37-47); HEMOGLOBIN 14.4 g/dL (12.0-16.0); IG# 0.02 K/uL (0.00-0.02); LYMPH % 21.9 %; LYMPH ABS # 1.37 K/uL (1.2-3.4); MEAN CELL VOLUME 90.4 fL (80-100); MEAN CORPUSCULAR HEMOGLOBIN 32.3 pg (25-34); MEAN CORPUSCULAR HGB CONC 35.7 g/dl (32-36); MEAN PLATELET VOLUME 9.5 fL (7.4-10.4); MONO % 8.1 %; MONO ABS # 0.51 K/uL (0.11-0.59); NEUT % 66.7 %; NEUT ABS # 4.17 K/uL (1.4-6.5); PLATELET COUNT 245 K/uL (130-400); RED CELL DISTRIBUTION WIDTH CV 13.4 % (11.5-14.5); RED CELL DISTRIBUTION WIDTH SD 44.2 fL (36.4-46.3); WHITE BLOOD COUNT 6.26 K/uL (4.8-10.8)
--- NOTE | 2017-04-12 13:54 | DIAGNOSTIC IMAGING REPORT ---
ABDOMEN 2VIEW W/PA CHEST RTN CLINICAL HISTORY: 62 years-old Female presenting with Pt c/o diffuse abd pain . TECHNIQUE: PA view of the chest and supine and upright views of the abdomen were obtained. COMPARISON: 04/08/2017 and 03/29/2017. FINDINGS: Atherosclerosis of the aortic arch. Cardiac silhouette normal in size. Lungs and pleural spaces clear. Nonobstructive bowel gas pattern. A right mid abdominal colostomy may be present. No gross pneumoperitoneum. Allowing for bowel gas and stool, no calcifications to suggest nephrolithiasis. Degenerative changes of the spine. IMPRESSION: 1. No acute cardiopulmonary disease. 2. No radiographic evidence of acute intra-abdominal pathology. Electronically signed by: Everton Banks M.D. 04/12/2017 1:53 PM Dictated Date/Time: 04/12/2017 1:51 PM
[2017-04-12] MEDS ORDERED: NORMOSOL R 1,000 ML IV ONE (14:00)
[2017-04-12 14:03] LABS: ALBUMIN 3.5 gm/dl (3.4-5.0); CREATININE 1.38 mg/dl (0.60-1.20); POTASSIUM 3.8 mmol/L (3.5-5.1)
[2017-04-12 14:09] LABS: TOTAL PROTEIN 7.8 gm/dl (6.4-8.2)
[2017-04-12 17:30] VITALS: BP 141/80; PULSE 83; TEMP 37.2; O2SAT 99
[2017-04-13] MEDS ORDERED: NICO21DI35 TD (13:01)
[2017-04-13] MEDS ORDERED: LOPELIQ6 PO (13:01)
[2017-04-13] MEDS ORDERED: PROB1CAP93 PO (13:01)
[2017-04-13] MEDS ORDERED: ACET2SOL7 OT (13:01)
[2017-04-13] MEDS ORDERED: IMD/2 PO (15:03)
[2017-04-13] MEDS ORDERED: PANT1TAB3 PO (15:03)
== END 2017-04-12 17:30 | disposition home or self-care (01) ==
LOC: EDBD 11:55 → C.EDC 11:56
DX: E86.0 Dehydration (principal); A04.72 Enterocolitis due to Clostridium difficile, not specified as recurrent; M62.831 Muscle spasm of calf; M62.838 Other muscle spasm; K50.90 Crohn's disease, unspecified, without complications; Z79.899 Other long term (current) drug therapy

== ENCOUNTER 2017-04-13 12:40 | Emergency (ER) | payer OTHER ==
[~2017-04-13] VITALS: Ht 167.6 cm; Wt 128.9 kg
[~2017-04-13 12:40] MED LIST changes: +ACET-1175 PO; -QSTP PO
[2017-04-13] MEDS ORDERED: DiphenhydrAMINE HCL 50 MG/ML VIAL IV STA (12:50)
[2017-04-13] MEDS ORDERED: PROCHLORPERAZINE 5 MG/ML 2 ML VIAL IV STA (12:50)
[2017-04-13] MEDS ORDERED: KETOROLAC TROMETHAMINE 30 MG/ML VIAL IV STA (12:50)
[2017-04-13 12:51] VITALS: O2SAT 97
[2017-04-13 12:56] VITALS: Ht 167.6 cm; Wt 128.9 kg
[2017-04-13] MEDS ORDERED: OPTIRAY 320 IV PRN (13:00)
[2017-04-13] MEDS ORDERED: NORMOSOL R 1,000 ML IV ONE (13:00)
--- NOTE | 2017-04-13 13:00 | EMERGENCY ROOM VISIT NOTE ---
History Report prepared by Chon: Jose Healy Under the Supervision of: Dr. Riley Bailon M.D. First contact with patient: 12:46 Stated Complaint: ABDOMINAL PAIN History of Present Illness The patient is a 62 year old female who presents to the Emergency Room with complaints of a constant headache and nausea that began last night. The patient was in the Emergency Department yesterday with the chief complaint of "cramping " in her calves and feet. The patient is now complaining of nausea and a headache. She also notes that she is having problems with her ostomy bag. She states that as soon as she drinks fluids it immediately exits into her ostomy bag. She is still taking oral vancomycin. She states that she did speak with her physician at [facility], who wants her to be transferred to [place] for observation. Source of History: patient Onset: Last night Position: head, abdomen Quality: other (Headache, nausea) Timing: constant Note: Calf cramping, ostomy bag filling Review of Systems See HPI for pertinent positives & negatives. A total of 10 systems reviewed and were otherwise negative. Past Medical & Surgical Medical Problems: (1) Abdominal pain (2) Bowel obstruction (3) Cellulitis (4) Crohn's disease involving terminal ileum (5) Crohns disease (6) Diarrhea (7) Hyponatremia (8) Partial small bowel obstruction (9) Postmenopausal bleeding (10) Pulmonary emboli (11) Rectal bleeding (12) right eye pain and decreased vision for 1 day (13) RUQ abdominal pain (14) SBO (small bowel obstruction) Family History Patient reports no known family medical history. Social History Smoking Status: Former Smoker Alcohol Use: none Drug Use: none Marital Status: Housing Status: lives with family Occupation Status: unemployed Current/Historical Medications Scheduled Acetic Acid (Otic) (Acetic Acid), 1 DOSE OT UD Adalimumab (Humira Pen), 40 MG SC [id number] Apixaban (Eliquis), 5 MG PO BID Atorvastatin (Lipitor), 20 MG PO QAM Cholecalciferol (Vitamin D3), 2,000 INTER.UNIT PO QAM Cyanocobalamin (Vitamin B12), 1,000 MCG PO QAM Loperamide Hcl (Imodium A-D), 10 ML PO QID Loperamide Hcl (Imodium), 2 MG PO QID Montelukast Sod (Montelukast Sodium), 10 MG PO QAM Nicotine (Nicoderm Cq 21MG Patch), 1 PATCH TD DAILY Pantoprazole (Pantoprazole Sodium), 40 MG PO QAM Pantoprazole (Protonix), 1 TAB PO BID Probiotic Product (Digestive Advantage), 1 CAP PO DAILY Vancomycin Hcl (Vancomycin), 125 MG PO Q6 Scheduled PRN Acetaminophen (Tylenol), 325 MG PO UD PRN for Pain Ondansetron Hcl (Zofran), 4 MG PO Q8H PRN for Nausea Tramadol HCl (Tramadol HCl), 50 MG PO Q8 PRN for Pain Trazodone Hcl (Desyrel), 50 MG PO HS PRN for Sleep Allergies Coded Allergies: No Known Allergies (Verified , 04/13/17) Physical Exam Vital Signs Date Time Temp Pulse Resp B/P (MAP) Pulse Ox O2 Delivery O2 Flow Rate FiO2 04/13/17 17:19 37.2 72 16 127/82 97 Room Air 04/13/17 16:22 72 16 124/80 97 Room Air 04/13/17 14:55 71 16 116/56 99 Room Air 04/13/17 14:55 116/56 04/13/17 13:57 72 16 127/80 97 Room Air 04/13/17 13:53 76 18 04/13/17 13:48 127/80 04/13/17 13:47 132/72 04/13/17 13:42 37.2 79 16 127/80 97 Room Air 72 132/72 04/13/17 13:10 75 23 04/13/17 13:02 79 04/13/17 13:00 111/71 04/13/17 12:51 37.2 86 16 152/78 97 Room Air 04/13/17 12:51 97 Room Air 04/13/17 12:51 97 Room Air Physical Exam GENERAL: Awake, alert, well-appearing, in no acute distress HENT: Normocephalic, atraumatic. Oropharynx unremarkable. EYES: Normal conjunctiva. Sclera non-icteric. NECK: Supple. No nuchal rigidity. FROM. No JVD. RESPIRATORY: Clear to auscultation. CARDIAC: Regular rate, normal rhythm. Extremities warm and well perfused. Pulses equal. ABDOMEN: Soft, non-distended. No tenderness to palpation. No rebound or guarding. No masses. Ostomy bag present. There is fluid output in the ostomy. RECTAL: Deferred. MUSCULOSKELETAL: Chest examination reveals no tenderness. The back is symmetrical on inspection without obvious abnormality. There is no CVA tenderness to palpation. No joint edema. LOWER EXTREMITIES: Calves are equal size bilaterally and non-tender. No edema. No discoloration. NEURO: Normal sensorium. No sensory or motor deficits noted. SKIN: No rash or jaundice noted. Medical Decision & Procedures ER Provider Diagnostic Interpretation: Radiology results as stated below per my review and radiologist interpretation: CT SCAN OF THE ABDOMEN AND PELVIS WITH IV CONTRAST CLINICAL HISTORY: Generalized abdominal pain. COMPARISON STUDY: Abdominal CT dated 11/15/2016. TECHNIQUE: Following the IV administration of 93 cc of Optiray 320, CT scan of the abdomen and pelvis is performed from the lung bases to the proximal femora. Images are reviewed in the axial, sagittal, and coronal planes. IV contrast was administered without complication. A dose lowering technique was utilized adhering to the principles of ALARA. The examination is degraded by large body habitus, and by streak artifact from the body wall abutting the CT gantry. CT DOSE: 1611.33 mGy.cm FINDINGS: Lung bases: The heart is normal in size and without pericardial effusion. There are coronary artery calcifications. The lung bases are clear. Liver: The contrast-enhanced liver is enlarged, measuring 18.5 cm in length. The liver demonstrates diffusely diminished attenuation consistent with hepatic steatosis. There is no intrahepatic biliary ductal dilatation. The hepatic veins and portal veins are patent. Gallbladder: Adenomyomatosis is suggested in the gallbladder fundus. The gallbladder is otherwise normal in appearance. Spleen: Normal in size and attenuation. Pancreas: There is moderate glandular atrophy. Coarse calcifications are noted in the pancreatic head. The pancreas is otherwise normal as imaged. Adrenal glands: Unremarkable. Kidneys: The contrast enhanced kidneys demonstrate cortical atrophy and are without hydronephrosis. The kidneys enhance symmetrically. Abdominal vasculature: The abdominal aorta is normal in course and caliber noting moderate atherosclerotic calcification. Stomach and bowel: A tiny hiatal hernia is identified. The duodenum is normal in configuration. There are postoperative changes from distal small bowel resection with right lower quadrant double barrel ileostomy. There is a small bowel containing parastomal hernia. No bowel obstruction is seen. There is mild sigmoid diverticulosis without CT evidence of acute diverticulitis. The appendix is not identified and presumed surgically absent. Peritoneum: There is no intraperitoneal free air or abdominal ascites. A midline surgical scar is noted. Lymphadenopathy: None. Pelvic viscera: The bladder, uterus, and adnexa are normal as visualized. Skeletal structures: The skeletal structures are osteopenic. Mild to moderate lumbosacral spondylosis is observed. A minimal superior endplate compression deformity is noted in L4. No lytic or blastic lesions are seen. IMPRESSION: 1. There are no acute infectious or inflammatory findings in the abdomen or pelvis. 2. There are postoperative changes from distal resection with double barrel ileostomy. No bowel obstruction is seen. 3. A small bowel containing parastomal hernia is identified. 4. Hepatomegaly and hepatic steatosis. 5. Additional findings as above. Electronically signed by: Frank Cortez M.D. 04/13/2017 2:15 PM Dictated Date/Time: 04/13/2017 2:06 PM Laboratory Results 04/13/17 13:15 Red Blood Count 4.45, Mean Corpuscular Volume 90.8, Mean Corpuscular Hemoglobin 32.4, Mean Corpuscular Hemoglobin Concent 35.6, Mean Platelet Volume 9.4, Neutrophils (%) (Auto) 59.2, Lymphocytes (%) (Auto) 28.5, Monocytes (%) (Auto) 8.5, Eosinophils (%) (Auto) 2.8, Basophils (%) (Auto) 0.4, Neutrophils # (Auto) 3.99, Lymphocytes # (Auto) 1.92, Monocytes # (Auto) 0.57, Eosinophils # (Auto) 0.19, Basophils # (Auto) 0.03 04/13/17 13:15 Test 04/13/17 13:13 04/13/17 13:15 04/13/17 13:21 04/13/17 15:01 Bedside Glucose 95 mg/dl (70-90) White Blood Count 6.74 K/uL (4.8-10.8) Red Blood Count 4.45 M/uL (4.2-5.4) Hemoglobin 14.4 g/dL (12.0-16.0) Hematocrit 40.4 % (37-47) Mean Corpuscular Volume 90.8 fL (80-100) Mean Corpuscular Hemoglobin 32.4 pg (25-34) Mean Corpuscular Hemoglobin Concent 35.6 g/dl (32-36) Platelet Count 234 K/uL (130-400) Mean Platelet Volume 9.4 fL (7.4-10.4) Neutrophils (%) (Auto) 59.2 % Lymphocytes (%) (Auto) 28.5 % Monocytes (%) (Auto) 8.5 % Eosinophils (%) (Auto) 2.8 % Basophils (%) (Auto) 0.4 % Neutrophils # (Auto) 3.99 K/uL (1.4-6.5) Lymphocytes # (Auto) 1.92 K/uL (1.2-3.4) Monocytes # (Auto) 0.57 K/uL (0.11-0.59) Eosinophils # (Auto) 0.19 K/uL (0-0.5) Basophils # (Auto) 0.03 K/uL (0-0.2) RDW Standard Deviation 44.5 fL (36.4-46.3) RDW Coefficient of Variation 13.4 % (11.5-14.5) Immature Granulocyte % (Auto) 0.6 % Immature Granulocyte # (Auto) 0.04 K/uL (0.00-0.02) Est Creatinine Clear Calc Drug Dose 62.9 ml/min Estimated GFR () 52.5 Estimated GFR (Non- 45.3 BUN/Creatinine Ratio 15.5 (10-20) Calcium Level 9.8 mg/dl (8.5-10.1) Total Bilirubin 0.4 mg/dl (0.2-1) Direct Bilirubin 0.1 mg/dl (0-0.2) Aspartate Amino Transf (AST/SGOT) 28 U/L (15-37) Alanine Aminotransferase (ALT/SGPT) 39 U/L (12-78) Alkaline Phosphatase 134 U/L (45-117) Total Creatine Kinase 40 U/L (26-192) Creatine Kinase MB < 0.5 ng/ml (0.5-3.6) Creatine Kinase MB Ratio (0-3.0) Troponin I < 0.015 ng/ml (0-0.045) Total Protein 7.4 gm/dl (6.4-8.2) Albumin 3.4 gm/dl (3.4-5.0) Thyroid Stimulating Hormone (TSH) 0.782 uIu/ml (0.300-4.500) Bedside Hemoglobin 14.3 g/dl (12.0-16.0) Bedside Hematocrit 42 % (37-47) Bedside Sodium 134 mEq/L (135-144) Bedside Potassium 4.1 mEq/L (3.3-5.0) Bedside Chloride 102 mEq/L (101-112) Bedside Total CO2 22 mEq/l (24-31) Anion Gap 15.0 mmol/L (16-25) Bedside Blood Urea Nitrogen 23 mg/dl (7-18) Bedside Creatinine 1.2 mg/dl (0.6-1.3) Bedside Glucose (other) 93 mg/dl (70-99) Bedside Ionized Calcium (Oumar) 1.22 mmol/l (1.12-1.32) Urine Color YELLOW Urine Appearance CLEAR (CLEAR) Urine pH 5.5 (4.5-7.5) Urine Specific [place] 1.036 (1.000-1.030) Urine Protein NEG (NEG) Urine Glucose (UA) NEG (NEG) Urine Ketones NEG (NEG) Urine Occult Blood NEG (NEG) Urine Nitrite NEG (NEG) Urine Bilirubin NEG (NEG) Urine Urobilinogen NEG (NEG) Urine Leukocyte Esterase NEG (NEG) Labs reviewed by ED physician. Medications Administered Medications (Trade) Dose Ordered Sig/Rachael Route Start Time Stop Time Status Last Admin Dose Admin Parenteral Electrolyte Solution 1,000 ml @ 999 mls/hr Q1H1M ONCE IV 04/13/17 13:00 04/13/17 14:00 DC 04/13/17 13:37 999 MLS/HR Ketorolac Tromethamine (Toradol Inj) 30 mg NOW STAT IV 04/13/17 12:50 04/13/17 12:54 DC 04/13/17 13:38 30 MG Prochlorperazine Edisylate (Compazine Inj) 10 mg NOW STAT IV 04/13/17 12:50 04/13/17 12:54 DC 04/13/17 13:37 10 MG Diphenhydramine HCl (Benadryl Inj) 50 mg NOW STAT IV 04/13/17 12:50 04/13/17 12:54 DC 04/13/17 13:37 50 MG Loperamide HCl (Imodium Cap) 2 mg NOW STAT PO 04/13/17 14:58 3/6/18 14:59 DC 04/13/17 15:08 2 MG Pantoprazole Sodium (Protonix Tab) 40 mg NOW STAT PO 04/13/17 14:58 04/13/17 14:59 DC 04/13/17 15:08 40 MG ECG Per My Interpretation Indication: nausea Rate (beats per minute): 67 Findings: 1st degree AV block, other (No JESUS/STD, No PVCs) ED Course 1249: Past medical records reviewed. The patient was evaluated in room C5. A complete history and physical examination was performed. 1250: Ordered Benadryl 50 mg IV, Compazine Inj 10 mg IN, Toradol 30 mg IV. 1300: Ordered Parenteral 1000 mL @ 999 mL/hr IV. 1442: I discussed the case with Dr. Lane - [facility]. He agrees with the plan of care. 1451: I discussed the case with Dr. Desir - [facility] [place]. He stressed to NOT put a PICC Line in the patient, and to make sure that she is taking her Imodium and Protonix. (she was not taking either of these medications). 1458: Ordered Pantoprazole 40 mg PO, Imodium Cap 2 mg PO. 1508: Upon reexamination the patient is resting in bed. I discussed results and treatment plan with the patient. She verbalizes agreement and understanding. The patient is ready for discharge. Medical Decision Differential diagnosis: Etiologies such as migraine headache, meningitis, sinusitis, CO exposure, ICH, SAH, infection, tumor, headache, sinus thrombosis, arterial dissection, as well as others were entertained. This is a 62-year-old female who again presents to the emergency department over concerns of her increased output out of her ostomy. After carefully talking with the patient it appears that she stopped her Lomotil. she had been diagnosed with a C. difficile on April 08 and placed on oral vancomycin. I strongly suspect that this is a negative result. The patient insisted on me discussing her case with her surgeon down in [place]. Dr. Lane and I discussed the patient's case and both felt that the patient did not need to be transferred. I specifically note that her creatinine is improved and she does not have an elevation in her white blood cell count. I also discussed the case with Dr. Desir who also felt that the patient could be safely discharged home. Both noted that they felt that this was not C. difficile and they felt that the patient could be placed back on her Lomotil as well as Protonix twice a day. I did discuss the case with case management who. Arrange transport for the patient home Medication Reconcilliation Current Medication List: was personally reviewed by me Blood Pressure Screening Patient's blood pressure: Normal blood pressure Consults Time Called: 1430 Consulting Physician: Dr. Lane - [facility] Returned Call: 1442 I discussed the case with Dr. Domingo Todd [facility]. He agrees with the plan of care. Additional Consults: Time Called: 1445 Consulted Physician: Dr. Thang [facility] Returned Call: 1451 Additional Comments: I discussed the case with Dr. Thang [facility]. He stressed to NOT put a PICC Line in the patient, and to make sure that she is taking her Imodium and Protonix. Impression Primary Impression: Altered bowel elimination due to intestinal ostomy Scribe Attestation The scribe's documentation has been prepared under my direction and personally reviewed by me in its entirety. I confirm that the note above accurately reflects all work, treatment, procedures, and medical decision making performed by me. Departure Information Dispostion Home / Self-Care Prescriptions Pantoprazole (PROTONIX) 40 Mg Tab 1 TAB PO BID for 30 Days, #60 TAB Prov: Riley Bailon MD 04/13/17 Loperamide Hcl (Imodium) 2 Mg Cap 2 MG PO QID for 30 Days, #120 CAP Prov: Riley Bailon MD 04/13/17 Referrals Ulices Desir D.O. (PCP) Forms HOME CARE DOCUMENTATION FORM, IMPORTANT VISIT INFORMATION, WORK / SCHOOL INSTRUCTIONS Patient Instructions My [facility] Additional Instructions Start taking Immodium 4 times a day Start taking protonix twice a day Need follow up with Dr Ordonez's office You have been examined and treated today on an emergency basis only. This is not a substitute for, or an effort to provide, complete comprehensive medical care. It is impossible to recognize and treat all injuries or illnesses in a single emergency department visit. It is therefore important that you follow up closely with Dr Sesay. Call as soon as possible for an appointment. Thank you for your time and consideration. I look forward to speaking with you again soon. Please don't hesitate to call us if you have any questions.
[2017-04-13] MEDS ORDERED: PROB1CAP93 PO (13:01)
[2017-04-13] MEDS ORDERED: ACET2SOL7 OT (13:01)
[2017-04-13] MEDS ORDERED: LOPELIQ6 PO (13:01)
[2017-04-13] MEDS ORDERED: NICO21DI35 TD (13:01)
[2017-04-13 13:32] LABS: ISTAT CREATININE 1.2 mg/dl (0.6-1.3); ISTAT IONIZED CALCIUM 1.22 mmol/l (1.12-1.32); ISTAT POTASSIUM 4.1 mEq/L (3.3-5.0)
[2017-04-13 13:46] LABS: BASO % 0.4 %; BASO ABS # 0.03 K/uL (0-0.2); EOS % 2.8 %; EOS ABS # 0.19 K/uL (0-0.5); HEMATOCRIT 40.4 % (37-47); HEMOGLOBIN 14.4 g/dL (12.0-16.0); IG# 0.04 K/uL (0.00-0.02); LYMPH % 28.5 %; LYMPH ABS # 1.92 K/uL (1.2-3.4); MEAN CELL VOLUME 90.8 fL (80-100); MEAN CORPUSCULAR HEMOGLOBIN 32.4 pg (25-34); MEAN CORPUSCULAR HGB CONC 35.6 g/dl (32-36); MEAN PLATELET VOLUME 9.4 fL (7.4-10.4); MONO % 8.5 %; MONO ABS # 0.57 K/uL (0.11-0.59); NEUT % 59.2 %; NEUT ABS # 3.99 K/uL (1.4-6.5); PLATELET COUNT 234 K/uL (130-400); RED CELL DISTRIBUTION WIDTH CV 13.4 % (11.5-14.5); RED CELL DISTRIBUTION WIDTH SD 44.5 fL (36.4-46.3); WHITE BLOOD COUNT 6.74 K/uL (4.8-10.8)
[2017-04-13 14:11] LABS: ALBUMIN 3.4 gm/dl (3.4-5.0); ALT/SGPT 39 U/L (12-78); BLOOD UREA NITROGEN 20 mg/dl (7-18); CALCIUM 9.8 mg/dl (8.5-10.1); CARBON DIOXIDE 21 mmol/L (21-32); CREATININE 1.26 mg/dl (0.60-1.20); GLUCOSE 95 mg/dl (70-99); SODIUM 132 mmol/L (136-145)
--- NOTE | 2017-04-13 14:16 | DIAGNOSTIC IMAGING REPORT ---
CT SCAN OF THE ABDOMEN AND PELVIS WITH IV CONTRAST CLINICAL HISTORY: Generalized abdominal pain. COMPARISON STUDY: Abdominal CT dated 11/15/2016. TECHNIQUE: Following the IV administration of 93 cc of Optiray 320, CT scan of the abdomen and pelvis is performed from the lung bases to the proximal femora. Images are reviewed in the axial, sagittal, and coronal planes. IV contrast was administered without complication. A dose lowering technique was utilized adhering to the principles of ALARA. The examination is degraded by large body habitus, and by streak artifact from the body wall abutting the CT gantry. CT DOSE: 1611.33 mGy.cm FINDINGS: Lung bases: The heart is normal in size and without pericardial effusion. There are coronary artery calcifications. The lung bases are clear. Liver: The contrast-enhanced liver is enlarged, measuring 18.5 cm in length. The liver demonstrates diffusely diminished attenuation consistent with hepatic steatosis. There is no intrahepatic biliary ductal dilatation. The hepatic veins and portal veins are patent. Gallbladder: Adenomyomatosis is suggested in the gallbladder fundus. The gallbladder is otherwise normal in appearance. Spleen: Normal in size and attenuation. Pancreas: There is moderate glandular atrophy. Coarse calcifications are noted in the pancreatic head. The pancreas is otherwise normal as imaged. Adrenal glands: Unremarkable. Kidneys: The contrast enhanced kidneys demonstrate cortical atrophy and are without hydronephrosis. The kidneys enhance symmetrically. Abdominal vasculature: The abdominal aorta is normal in course and caliber noting moderate atherosclerotic calcification. Stomach and bowel: A tiny hiatal hernia is identified. The duodenum is normal in configuration. There are postoperative changes from distal small bowel resection with right lower quadrant double barrel ileostomy. There is a small bowel containing parastomal hernia. No bowel obstruction is seen. There is mild sigmoid diverticulosis without CT evidence of acute diverticulitis. The appendix is not identified and presumed surgically absent. Peritoneum: There is no intraperitoneal free air or abdominal ascites. A midline surgical scar is noted. Lymphadenopathy: None. Pelvic viscera: The bladder, uterus, and adnexa are normal as visualized. Skeletal structures: The skeletal structures are osteopenic. Mild to moderate lumbosacral spondylosis is observed. A minimal superior endplate compression deformity is noted in L4. No lytic or blastic lesions are seen. IMPRESSION: 1. There are no acute infectious or inflammatory findings in the abdomen or pelvis. 2. There are postoperative changes from distal resection with double barrel ileostomy. No bowel obstruction is seen. 3. A small bowel containing parastomal hernia is identified. 4. Hepatomegaly and hepatic steatosis. 5. Additional findings as above. Electronically signed by: Frank Cortez M.D. 04/13/2017 2:15 PM Dictated Date/Time: 04/13/2017 2:06 PM
[2017-04-13 14:32] LABS: ALKALINE PHOSPHATASE 134 U/L (45-117); AST/SGOT 28 U/L (15-37); CKMB < 0.5 ng/ml (0.5-3.6); TOTAL PROTEIN 7.4 gm/dl (6.4-8.2)
[2017-04-13] MEDS ORDERED: LOPERAMIDE HCL 2 MG CAP PO STA (14:58)
[2017-04-13] MEDS ORDERED: PANTOprazole SOD 40 MG TAB PO STA (14:58)
[2017-04-13] MEDS ORDERED: PANT1TAB3 PO (15:03)
[2017-04-13] MEDS ORDERED: IMD/2 PO (15:03)
[2017-04-13 17:19] VITALS: TEMP 37.2
[2017-04-13 20:40] VITALS: BP 101/81; PULSE 70; O2SAT 95
== END 2017-04-13 20:42 | disposition home or self-care (01) ==
LOC: C.EDC 12:40 → EDBD 12:40 → C.EDC 20:42
DX: R19.4 Change in bowel habit (principal); Z93.3 Colostomy status; K50.90 Crohn's disease, unspecified, without complications; Z79.01 Long term (current) use of anticoagulants; Z87.891 Personal history of nicotine dependence; Z86.718 Personal history of other venous thrombosis and embolism; Z86.19 Personal history of other infectious and parasitic diseases

== ENCOUNTER → 2017-06-03 | Day surgery (SDC) | payer OTHER ==
[2017-05-27 13:14] VITALS: Ht 167.6 cm; Wt 121.4 kg
[~2017-06-03] VITALS: Ht 167.6 cm; Wt 121.4 kg
[~2017-06-03] MED LIST changes: +LIDOCAINE HCL 2% 2 ML VIAL (20MG/ML) ONE; +LOPELIQ6 PO; -MISCCAP80 PO; +NICO21DI35 TD; +PANT1TAB3 PO; -PANT40TA2 PO; +PROB1CAP93 PO; +PROPOFOL IV EMULSION 10 MG/ML 20 ML VIAL IV ONE; +SODIUM CHLORIDE 0.9% 500ML 500 ML IV ONE; +SUMA100T16 PO; -ULT50 PO; -VANC5CAP PO
--- NOTE | 2017-06-03 10:17 | Endo History and Physical ---
History & Physical Date of Service: Jun 03, 2017. Chief Complaint: Crohn's Ileocolitis Referring Physician: LISA Hogue History of Present Illness 62 yo CF who presents for colonoscopy and ileoscopy for evaluation secondary to Crohn's Ileocolitis. Past Surgical History Hx Cardiac Surgery: No Hx Internal Defibrillator: No Hx Pacemaker: No Hx Abdominal Surgery: Yes (TUBAL LIGATION, COLON RESECTION WITH ILEOSTOMY 08/24' ) Hx Post-Op Nausea and Vomiting: No Hx Cancer Surgery: No Hx Thoracic Surgery: No Hx Orthopedic: No Hx Urinary Tract Surgery: No Family History IBD Social History Smoking Status: Former Smoker Hx Substance Use: No Hx Alcohol Use: No Allergies Coded Allergies: No Known Allergies (Verified , 05/27/17) Current Medications Reported Home Medications Medications Dose Route/Sig Max Daily Dose Days Date Category Imitrex (Sumatriptan Succinate) 100 Mg Tab 100 Mg PO PRN 05/27/17 Reported Protonix (Pantoprazole) 40 Mg Tab 1 Tab PO BID 30 04/13/17 Rx Nicoderm Cq 21MG Patch (Nicotine) 21 Mg/24 Hr Dis 1 Patch TD DAILY 04/13/17 Reported Digestive Advantage (Probiotic Product) 1 Cap Cap 1 Cap PO DAILY 04/13/17 Reported Imodium A-D (Loperamide Hcl) Unknown Strength Liq 10 Ml PO QID 04/13/17 Reported Tylenol (Acetaminophen) 325 Mg Tab 325 Mg PO UD PRN 04/12/17 Reported Vitamin D3 (Cholecalciferol) 2,000 Unit Cap 5,000 Inter.unit PO QAM 03/29/17 Reported Eliquis (Apixaban) 5 Mg Tab 5 Mg PO BID 03/29/17 Reported Desyrel (Trazodone Hcl) 50 Mg Tab 50 Mg PO HS PRN 03/29/17 Reported Montelukast Sodium (Montelukast Sod) 10 Mg Tab 10 Mg PO QAM 03/29/17 Reported Lipitor (Atorvastatin Calcium) 20 Mg Tab 20 Mg PO QAM 03/29/17 Reported Zofran (Ondansetron HCl) 4 Mg Tab 4 Mg PO Q8H PRN 01/25/17 Reported Vitamin B12 (Cyanocobalamin) 1,000 Mcg Tab 1,000 Mcg PO QAM 01/25/17 Reported Humira Pen (Adalimumab) 40 Mg/0.8 Ml Kit 40 Mg SC [id number] 01/25/17 Reported Vital Signs Weight (Kilograms): 121.36 Height (Feet): 5 Height (Inches): 6 Physical Exam General Appearance: WD/WN, no apparent distress Respiratory/Chest: Auscultation: breath sounds normal Cardiovascular: Heart Auscultation: RRR Abdomen: Bowel Sounds: normal Inspection & Palpation: soft, non-distended, no tenderness, guarding & rebound Assessment and Plan Assessment: 62 yo CF who presents for colonoscopy and ileoscopy for evaluation secondary to Crohn's Ileocolitis. Plan: Proceed with colonoscopy and ileoscopy.
--- NOTE | 2017-06-03 11:26 | Discharge Instructions ---
Endoscopy Patient Instructions Date / Procedure(s) Performed Jun 03, 2017. Colonoscopy Allergy Information Coded Allergies: No Known Allergies (Verified , 05/27/17) Discharge Date / Findings Jun 03, 2017. Normal colonoscopy to transverse colon Normal ileoscopy Medication Instructions Stopped Medication(s): Bisi OK to resume all medications today as prescribed Reported Home Medications Medications Dose Route/Sig Max Daily Dose Days Date Category Imitrex (Sumatriptan Succinate) 100 Mg Tab 100 Mg PO PRN 05/27/17 Reported Protonix (Pantoprazole) 40 Mg Tab 1 Tab PO BID 30 04/13/17 Rx Nicoderm Cq 21MG Patch (Nicotine) 21 Mg/24 Hr Dis 1 Patch TD DAILY 04/13/17 Reported Digestive Advantage (Probiotic Product) 1 Cap Cap 1 Cap PO DAILY 04/13/17 Reported Imodium A-D (Loperamide Hcl) Unknown Strength Liq 10 Ml PO QID 04/13/17 Reported Tylenol (Acetaminophen) 325 Mg Tab 325 Mg PO UD PRN 04/12/17 Reported Vitamin D3 (Cholecalciferol) 2,000 Unit Cap 5,000 Inter.unit PO QAM 03/29/17 Reported Eliquis (Apixaban) 5 Mg Tab 5 Mg PO BID 03/29/17 Reported Desyrel (Trazodone Hcl) 50 Mg Tab 50 Mg PO HS PRN 03/29/17 Reported Montelukast Sodium (Montelukast Sod) 10 Mg Tab 10 Mg PO QAM 03/29/17 Reported Lipitor (Atorvastatin Calcium) 20 Mg Tab 20 Mg PO QAM 03/29/17 Reported Zofran (Ondansetron HCl) 4 Mg Tab 4 Mg PO Q8H PRN 01/25/17 Reported Vitamin B12 (Cyanocobalamin) 1,000 Mcg Tab 1,000 Mcg PO QAM 01/25/17 Reported Humira Pen (Adalimumab) 40 Mg/0.8 Ml Kit 40 Mg SC [id number] 01/25/17 Reported Provider Instructions Activity Restrictions - No exercising or heavy lifting for 24 hours. - Do not drink alcohol the day of the procedure. - Do not drive a car or operate machinery until the day after the procedure. - Do not make any important decisions or sign important papers in 24 hours after the procedure. Following Day: - Return to full activity which may include returning to work/school. Diet Start your diet with liquids and light foods (jello, soup, juice, toast). Then eat your usual diet if not nauseated. Treatment For Common After Affects For mild abdominal pain, bloating, or excessive gas: - Rest - Eat lightly - Lie on right side Follow-Up Information Follow-up with Oc Sesay as scheduled Anesthesia Information What You Should Know You have had a procedure that required some medicine to reduce anxiety and discomfort. This treatment is called moderate sedation. After receiving the treatment, you may be sleepy, but you will be able to breathe on your own. The effects of the treatment may last for several hours. Follow these instructions along with Activity/Diet recommendations noted above: * Do NOT do anything where dizziness or clumsiness would be dangerous. * Rest quietly at home today, then you can be up and about tomorrow. * Have a responsible person stay with you the rest of today. * You may have had an I.V. today. If so, you may take the dressing off later today. Recommendations Call your doctor if: * Trouble breathing * Continuous vomiting for more than 24 hours * Temperature above 101 degrees * Severe abdominal pain or bloating * Pain not relieved by pain medicine ordered * There is increased drainage or redness from any incision * A large amount of rectal bleeding greater than 2-3 tablespoons. (If you had a polyp/s removed or have hemorrhoids, a small amount of blood - from the rectum is to be expected.) * You have any unanswered questions or concerns. IN THE EVENT OF A SERIOUS EMERGENCY, GO TO THE NEAREST EMERGENCY ROOM Your discharge instructions were prepared by provider Ulices Desir. Patient Instructions Signature Page Florencia Freeman Patient (or Guardian) Signature/Date: I have read and understand the instructions given to me by my caregivers. Caregiver/RN/Doctor Signature/Date: The above-named patient and/or guardian has received patient instructions on this date. + Original Patient Signature Page (only) stays with chart. Please make copy for patient.
--- NOTE | 2017-06-03 11:47 | GI REPORT ---
Patient Name: Florencia Freeman Procedure Date: 06/03/2017 11:08 AM Date of : 1955 Admit Type: Outpatient Age: 62 Gender: Female Attending MD: Ulices Desir DO Procedure: Colonoscopy Providers: Ulices Desir DO Referring MD: Velma Aceves Indications: Disease activity assessment of Crohn's disease of the small bowel Medicines: Monitored Anesthesia Care Complications: No immediate complications. Estimated Blood Loss: Estimated blood loss: none. Procedure: Pre-Anesthesia Assessment: - Prior to the procedure, a History and Physical was performed, and patient medications and allergies were reviewed. The patient's tolerance of previous anesthesia was also reviewed. The risks and benefits of the procedure and the sedation options and risks were discussed with the patient. All questions were answered, and informed consent was obtained. Prior Anticoagulants: The patient has taken Eliquis (apixaban), last dose was 2 days prior to procedure. ASA Grade Assessment: III - A patient with severe systemic disease. After reviewing the risks and benefits, the patient was deemed in satisfactory condition to undergo the procedure. After I obtained informed consent, the scope was passed under direct vision. Throughout the procedure, the patient's blood pressure, pulse, and oxygen saturations were monitored continuously. The scope was introduced through the anus and advanced to the transverse colon. The colonoscopy was performed without difficulty. The patient tolerated the procedure well. The quality of the bowel preparation was good. The rectum was photographed. The scope was then introduced through the ileostomy and advanced for 30 cm. The patient tolerated the procedure well. The quality of the bowel prep was good. The ileum was photographed. Findings: The perianal and digital rectal examinations were normal. The rectum, sigmoid colon, descending colon and transverse colon appeared normal. The terminal ileum appeared normal. Impression: - The rectum, sigmoid colon, descending colon and transverse colon are normal. - The examined portion of the ileum was normal. - No specimens collected. Recommendation: - Resume previous diet. - Continue present medications. - Repeat colonoscopy in 2 years for surveillance. - Return to referring physician as previously scheduled. Ulices Desir DO 06/03/2017 11:46:43 AM This report has been signed electronically. Note Initiated On: 06/03/2017 11:08 AM Number of Addenda: 0 I attest to the content of the Intraoperative Record and orders documented therein, exceptions below {[id number]}
--- NOTE | 2017-06-03 11:53 | Anesthesiology Progress Note ---
Anesthesia Post Op Note Date & Time Jun 03, 2017 at 11:53 Vital Signs Pain Intensity: 0 Vital Signs Past 12 Hours Date Time Temp Pulse Resp B/P (MAP) Pulse Ox O2 Delivery O2 Flow Rate FiO2 06/03/17 11:40 66 18 123/72 (89) 98 Room Air 06/03/17 11:39 71 18 97/58 (71) 94 Room Air 06/03/17 10:24 36.8 75 18 110/65 (80) 94 Room Air Notes Mental Status: alert / awake / arousable, participated in evaluation Pt Amnestic to Procedure: Yes Nausea / Vomiting: adequately controlled Pain: adequately controlled Airway Patency, RR, SpO2: stable & adequate BP & HR: stable & adequate Hydration State: stable & adequate Anesthetic Complications: no major complications apparent
[2017-06-03 11:55] VITALS: BP 135/77; PULSE 70; O2SAT 96
== END | disposition home or self-care (01) ==
LOC: C.GI 09:54
PROVIDERS: ATTEND Internal Medicine
DX: K52.9 Noninfective gastroenteritis and colitis, unspecified (principal); J44.9 Chronic obstructive pulmonary disease, unspecified; I10 Essential (primary) hypertension; E78.5 Hyperlipidemia, unspecified; E66.01 Morbid (severe) obesity due to excess calories; M19.90 Unspecified osteoarthritis, unspecified site; Z86.711 Personal history of pulmonary embolism; Z90.49 Acquired absence of other specified parts of digestive tract; Z79.01 Long term (current) use of anticoagulants; Z87.891 Personal history of nicotine dependence; Z79.899 Other long term (current) drug therapy; Z93.3 Colostomy status

== ENCOUNTER → 2017-06-11 | Outpatient (CLI) | payer OTHER ==
[~2017-06-11] MED LIST changes: +GADAVIST IV PRN; -LIDOCAINE HCL 2% 2 ML VIAL (20MG/ML) ONE; -PROPOFOL IV EMULSION 10 MG/ML 20 ML VIAL IV ONE; -SODIUM CHLORIDE 0.9% 500ML 500 ML IV ONE
--- NOTE | 2017-06-11 11:11 | DIAGNOSTIC IMAGING REPORT ---
MRI OF THE BRAIN WITHOUT AND WITH IV CONTRAST CLINICAL HISTORY: Facial numbness. Headache. COMPARISON STUDY: MRI of the brain July 29, [address] August 15, 2016. TECHNIQUE: Utilizing a 1.5 Kesha magnet and dedicated coil, multiplanar, multiecho imaging of the brain was performed pre and postcontrast administration. IV administration of 12 mL of Gadavist contrast was uneventful. FINDINGS: There are no foci of restricted diffusion. No acute intracranial hemorrhage, midline shift or mass effect is present. Ventricular system is normal. Basilar cisterns are patent. There are no extra-axial collections. Flow-voids for the major intracranial vessels are present. There is no intracranial mass or pathologic enhancement. A few small white matter T2 hyperintense foci are similar to MRI of July 29, 2016. No new areas of signal abnormality are present. Orbits are unremarkable. There is no intracranial mass or pathologic enhancement. IMPRESSION: 1. No acute intracranial finding. 2. No intracranial mass or pathologic enhancement. 3. No change in appearance of the brain. Electronically signed by: Teddy Burger M.D. 06/11/2017 11:09 AM Dictated Date/Time: 06/11/2017 11:04 AM
== END | disposition home or self-care (01) ==
LOC: C.MRI 08:52
PROVIDERS: ATTEND Physician Assistant
DX: R20.0 Anesthesia of skin (principal); R51 Headache

== ENCOUNTER 2017-09-13 04:50 | Emergency (ER) | payer OTHER ==
[~2017-09-13] VITALS: Ht 167.6 cm; Wt 122.6 kg
[~2017-09-13 04:50] MED LIST changes: -GADAVIST IV PRN; -TRAZ-120 PO; +TRAZ1TAB48 PO
[2017-09-13 05:07] VITALS: Ht 167.6 cm; Wt 122.6 kg
--- NOTE | 2017-09-13 05:10 | EMERGENCY ROOM VISIT NOTE ---
History Report prepared by Chon: Tong Nino Under the Supervision of: Dr. Evan Gonzales M.D. First contact with patient: 04:51 Chief Complaint: GI ASSESSMENT Stated Complaint: ABDOMINAL PAIN/RECTAL BLEED History of Present Illness The patient is a 62 year old female who presents to the Emergency Room with complaints of rectal bleeding. The patient states this evening at 2300 she had a small bowel movement that produced a scant amount of bright red blood. She states at 0400 she woke up and noted a large amount of bright red blood so she came in. The patient states she has a history of Crohn's and Hemorrhoids, but has never had this before. The patient has an ostomy, and recently had a reversal. The patient does not she has had SOB the past few hours, which concerned her. She states she is on Eliquis and has a history of PEs. The patient does note epigastric discomfort with nausea, but denies vomiting/ diarrhea. The patient states she did recently have C-Diff and finished Vancomycin x2 days ago. Review of Systems See HPI for pertinent positives & negatives. A total of 10 systems reviewed and were otherwise negative. Constitutional: No fever, No chills Respiratory: + dyspnea on exertion Cardiovascular: No chest pain Abdomen: + pain, + nausea, + GI bleeding, No vomiting, No diarrhea Integumentary: No rash Past Medical & Surgical Medical Problems: (1) Abdominal pain (2) Bowel obstruction (3) Cellulitis (4) Crohn's disease involving terminal ileum (5) Crohns disease (6) Diarrhea (7) Hyponatremia (8) Partial small bowel obstruction (9) Postmenopausal bleeding (10) Pulmonary emboli (11) Rectal bleeding (12) right eye pain and decreased vision for 1 day (13) RUQ abdominal pain (14) SBO (small bowel obstruction) Family History Patient reports no known family medical history. Social History Smoking Status: Former Smoker Alcohol Use: none Drug Use: none Marital Status: Housing Status: lives with family Occupation Status: unemployed Current/Historical Medications Scheduled Adalimumab (Humira Pen), 40 MG SC [id number] Apixaban (Eliquis), 5 MG PO BID Atorvastatin (Lipitor), 20 MG PO QAM Cholecalciferol (Vitamin D3), 5,000 INTER.UNIT PO QAM Cyanocobalamin (Vitamin B12), 1,000 MCG PO QAM Montelukast Sod (Montelukast Sodium), 10 MG PO QAM Pantoprazole (Pantoprazole Sodium), 40 MG PO DAILY Scheduled PRN Ondansetron Hcl (Zofran), 4 MG PO Q8H PRN for Nausea Sumatriptan Succinate (Imitrex), 100 MG PO UD PRN for Migraine Trazodone Hcl (Desyrel), 50 MG PO HS PRN for Sleep Allergies Coded Allergies: No Known Allergies (Verified , 09/13/17) Physical Exam Vital Signs Date Time Temp Pulse Resp B/P (MAP) Pulse Ox O2 Delivery O2 Flow Rate FiO2 09/13/17 10:56 71 18 141/73 99 09/13/17 09:33 71 18 138/75 99 Room Air 09/13/17 07:50 36.6 71 18 119/68 96 Room Air 09/13/17 06:47 87 18 120/82 98 Room Air 09/13/17 05:07 37.2 87 18 161/79 95 Room Air 09/13/17 04:57 85 Physical Exam GENERAL: Anxious appearing with minimal distress EYES: No scleral icterus, unremarkable pupils. ENT: Mucous membranes moist, no nasal congestion. NECK: No masses appreciated, no meningismus, trachea is midline. RESPIRATORY: No dyspnea. Clear to auscultation and equal bilaterally. No wheeze , no rhonchi. CARDIOVASCULAR: Regular rate and rhythm. No murmurs, rubs, gallops appreciated. GASTROINTESTINAL: Wound dressed to right anterior abdomen. Soft. Extensive scarring noted. Mild epigastric tenderness to palpation. BACK: No midline tenderness, no CVA tenderness EXTREMITIES: Normal motion all extremities, no cyanosis, no edema. NEUROLOGIC: Alert and oriented, no acute motor or sensory deficits, no focal weakness, cranial nerves grossly intact. SKIN: No rash, no jaundice, no diaphoresis. RECTAL: no blood, lacerations, tears, pain, or swelling Medical Decision & Procedures ER Provider Diagnostic Interpretation: X ray results are stated below per my interpretation: Chest: 1 view: No infiltrate, no effusion, normal cardiac border. Laboratory Results 09/13/17 05:14 Red Blood Count 4.04, Mean Corpuscular Volume 92.6, Mean Corpuscular Hemoglobin 31.4, Mean Corpuscular Hemoglobin Concent 34.0, Mean Platelet Volume 9.1, Neutrophils (%) (Auto) 61.7, Lymphocytes (%) (Auto) 26.3, Monocytes (%) (Auto) 7.5, Eosinophils (%) (Auto) 3.5, Basophils (%) (Auto) 0.5, Neutrophils # (Auto) 3.70, Lymphocytes # (Auto) 1.58, Monocytes # (Auto) 0.45, Eosinophils # (Auto) 0.21, Basophils # (Auto) 0.03 09/13/17 09:16 09/13/17 05:14 Test 09/13/17 05:14 White Blood Count 6.00 K/uL (4.8-10.8) Red Blood Count 4.04 M/uL (4.2-5.4) Hemoglobin 12.7 g/dL (12.0-16.0) Hematocrit 37.4 % (37-47) Mean Corpuscular Volume 92.6 fL (80-100) Mean Corpuscular Hemoglobin 31.4 pg (25-34) Mean Corpuscular Hemoglobin Concent 34.0 g/dl (32-36) Platelet Count 329 K/uL (130-400) Mean Platelet Volume 9.1 fL (7.4-10.4) Neutrophils (%) (Auto) 61.7 % Lymphocytes (%) (Auto) 26.3 % Monocytes (%) (Auto) 7.5 % Eosinophils (%) (Auto) 3.5 % Basophils (%) (Auto) 0.5 % Neutrophils # (Auto) 3.70 K/uL (1.4-6.5) Lymphocytes # (Auto) 1.58 K/uL (1.2-3.4) Monocytes # (Auto) 0.45 K/uL (0.11-0.59) Eosinophils # (Auto) 0.21 K/uL (0-0.5) Basophils # (Auto) 0.03 K/uL (0-0.2) RDW Standard Deviation 45.2 fL (36.4-46.3) RDW Coefficient of Variation 13.3 % (11.5-14.5) Immature Granulocyte % (Auto) 0.5 % Immature Granulocyte # (Auto) 0.03 K/uL (0.00-0.02) Prothrombin Time 10.8 SECONDS (9.0-12.0) Prothromb Time International Ratio 1.0 (0.9-1.1) Activated Partial Thromboplast Time 27.4 SECONDS (21.0-31.0) Partial Thromboplastin Ratio 1.1 Anion Gap 7.0 mmol/L (3-11) Est Creatinine Clear Calc Drug Dose 76.9 ml/min Estimated GFR () 69.4 Estimated GFR (Non- 59.9 BUN/Creatinine Ratio 9.9 (10-20) Calcium Level 8.2 mg/dl (8.5-10.1) Total Bilirubin 0.3 mg/dl (0.2-1) Direct Bilirubin < 0.1 mg/dl (0-0.2) Aspartate Amino Transf (AST/SGOT) 17 U/L (15-37) Alanine Aminotransferase (ALT/SGPT) 18 U/L (12-78) Alkaline Phosphatase 92 U/L (45-117) Troponin I < 0.015 ng/ml (0-0.045) C-Reactive Protein 0.30 mg/dl (0-0.29) Total Protein 6.3 gm/dl (6.4-8.2) Albumin 2.5 gm/dl (3.4-5.0) Lipase 128 U/L (73-393) ECG Per My Interpretation Rate (beats per minute): 80 Findings: 1st degree AV block, no ectopy, other Comparison ECG Date: March 2017- first degree AV block new, otherwise morphology similiar Medical Decision Differential Diagnosis: Post-Operative Hemorrhage, Diverticulitis, AVM, Coagulopathy, Colitis, Malignancy, Upper GI bleed, Fissure, Hemorrhoids, amongst other pathologies entertained. Rechecks: 0530: Feeling much better. Patient had a normal BM in the ED without bleeding. Rectal exam performed. She has no current shortness of breath. 0615: Discussed staying in ED for a few hours for observation and patient agrees. 0630: A2 signed out to Dr. Bailon. Awaiting repeat Hgb and monitoring. Very pleasant 62 yr old female on Eliquis who recently had reversal of her colostomy arrives after 2 episodes blood bowel movement. She notes feeling a bit shob last few days without cp nor syncope no leg swelling. She has normal CXR and EKG OK. She has no evidence ACS. She has history of PE, but is on Eliquis, has normal HR, normal O2 sats and no current shob thus I feel doing CT PE would not be indicated. She has no further rectal bleeding with normal BM here and normal rectal exam without evidence blood. Reviewed with patient and julia and plan to monitor for a few hours, repeat HgB and if no further bleeding nor anemia discharge to home. She is comfortable and agreeable with this plan. Aware RTED if worsening bleeding or other concerns. She is stable throughout stay. Medication Reconcilliation Current Medication List: was personally reviewed by me Blood Pressure Screening Patient's blood pressure: Elevated blood pressure Consults Time Called: 0600 Consulting Physician: Dr. Cash (Patient's Surgeon) Returned Call: 0610: Dr. Amin returned call Agrees that patient can be observed in ED for next few hours. Requested a repeat Hgb in a few hours. As long as stable Hgb and no further rectal bleeding , patient can be discharged with follow up with PCP and surgeon. Impression Primary Impression: Rectal bleeding Additional Impression: Hypokalemia Scribe Attestation The scribe's documentation has been prepared under my direction and personally reviewed by me in its entirety. I confirm that the note above accurately reflects all work, treatment, procedures, and medical decision making performed by me. Departure Information Dispostion Home / Self-Care Referrals Oc Sesay PA-C (PCP) Patient Instructions My [facility] Additional Instructions Follow up with your Surgeon. Call 911 if worsening bleeding, chest pain, passing out, or difficulty breathing. Continue taking your current medications as prescribed. Your potassium was on the low side. Please follow up with your primary care provider to discuss this and having it rechecked. Problem Qualifiers
[2017-09-13 05:26] LABS: BASO % 0.5 %; BASO ABS # 0.03 K/uL (0-0.2); EOS % 3.5 %; EOS ABS # 0.21 K/uL (0-0.5); HEMATOCRIT 37.4 % (37-47); HEMOGLOBIN 12.7 g/dL (12.0-16.0); IG# 0.03 K/uL (0.00-0.02); LYMPH % 26.3 %; LYMPH ABS # 1.58 K/uL (1.2-3.4); MEAN CELL VOLUME 92.6 fL (80-100); MEAN CORPUSCULAR HEMOGLOBIN 31.4 pg (25-34); MEAN PLATELET VOLUME 9.1 fL (7.4-10.4); MONO % 7.5 %; MONO ABS # 0.45 K/uL (0.11-0.59); NEUT % 61.7 %; PLATELET COUNT 329 K/uL (130-400); RED CELL DISTRIBUTION WIDTH CV 13.3 % (11.5-14.5); RED CELL DISTRIBUTION WIDTH SD 45.2 fL (36.4-46.3)
[2017-09-13 05:36] LABS: PTT PATIENT 27.4 SECONDS (21.0-31.0)
[2017-09-13 05:54] LABS: ALBUMIN 2.5 gm/dl (3.4-5.0); ALKALINE PHOSPHATASE 92 U/L (45-117); ALT/SGPT 18 U/L (12-78); AST/SGOT 17 U/L (15-37); BLOOD UREA NITROGEN 10 mg/dl (7-18); CALCIUM 8.2 mg/dl (8.5-10.1); CARBON DIOXIDE 26 mmol/L (21-32); GLUCOSE 93 mg/dl (70-99); LIPASE 128 U/L (73-393); SODIUM 141 mmol/L (136-145); TOTAL PROTEIN 6.3 gm/dl (6.4-8.2)
[2017-09-13] MEDS ORDERED: PANT40TA2 PO (07:04)
--- NOTE | 2017-09-13 07:39 | DIAGNOSTIC IMAGING REPORT ---
CHEST ONE VIEW PORTABLE HISTORY: Short of breath. COMPARISON: Chest 04/12/2017. FINDINGS: The lungs are clear. Cardiac silhouette is normal in size. No pleural effusions. No pneumothorax. IMPRESSION: No acute process. Electronically signed by: Deejay Jin M.D. 09/13/2017 7:38 AM Dictated Date/Time: 09/13/2017 7:34 AM
[2017-09-13 07:50] VITALS: TEMP 36.6
[2017-09-13 09:24] LABS: HEMOGLOBIN 12.2 g/dL (12.0-16.0)
--- NOTE | 2017-09-13 10:08 | EMERGENCY ROOM VISIT NOTE ---
ED Visit Note History and physical verified by me. Patient signed out to me change of shift. Patient is awaiting repeat hemoglobin. I believe it is stable and within normal limits. Patient will be discharged back to senior care.
[2017-09-13 10:56] VITALS: BP 141/73; PULSE 71; O2SAT 99
== END 2017-09-13 10:57 | disposition home or self-care (01) ==
LOC: EDBD 04:50 → C.EDA 04:51 → C.EDC 10:57
DX: K62.5 Hemorrhage of anus and rectum (principal); R06.02 Shortness of breath; E87.6 Hypokalemia; K50.00 Crohn's disease of small intestine without complications; Z79.01 Long term (current) use of anticoagulants; Z98.890 Other specified postprocedural states; Z87.891 Personal history of nicotine dependence; Z87.19 Personal history of other diseases of the digestive system; Z86.711 Personal history of pulmonary embolism

== ENCOUNTER 2018-05-18 05:18 | Observation (INO) ==
--- NOTE | 2018-05-12 11:21 | Anesthesiology Consultation ---
Date of Service May 12, 2018 Assessment & Plan (1) Encounter for pre-operative examination: Per Pulmonology 04/20/2018: "Recommend hold Eliquis 4-6 doses (recommend 72 hours prior to procedure). Resume medication 48 hours post procedure if hemodynamically stable. I expect if she achieves increased mobility as a result of her surgery may consider discontinuation of anticoagulation completely." Chart Review Chart Review: Acceptable Risk for Surgery and Patient seen in Pre Admission Testing Teaching & Discussion Instructed NPO after midnight before surgery, except medications with 15 cc of water. Medication instructions provided according to the PAT guidelines. History Surgery Operation Date: 05/18/18 07:30 Proposed Procedures p Panniculectomy - Jamilah Adams MD Height/Weight Height: 5 ft 7 in Weight: 125.6 kg Allergies Allergy/AdvReac Type Severity Reaction Status Date / Time No Known Allergies Allergy Verified 05/11/18 08:45 Medications Home Medications Medication Instructions Recorded Confirmed Last Taken Eliquis 5 mg PO BID 10/08/17 05/11/18 10/16/17 Humira 40 mg SUBCUT DIRECTED 10/08/17 05/11/18 10/14/17 acetaminophen [Tylenol 8 Hour] 650 mg PO Q8H PRN 10/08/17 05/11/18 10/21/17 04:00 atorvastatin 20 mg PO QAM 10/08/17 05/11/18 10/20/17 cholecalciferol (vitamin D3) 1,000 unit PO QAM 10/08/17 05/11/18 10/20/17 [Vitamin D3] loratadine 10 mg PO QAM 10/08/17 05/11/18 10/20/17 montelukast 10 mg PO QAM 10/08/17 05/11/18 10/20/17 ondansetron HCl [Zofran] 4 mg PO TID PRN 10/08/17 05/11/18 Unknown pantoprazole 40 mg PO QAM 10/08/17 05/11/18 10/20/17 tramadol 50 mg PO Q6H PRN 10/08/17 05/11/18 10/20/17 trazodone 50 mg PO HS PRN 10/08/17 05/11/18 10/20/17 [id number] 1 cap PO Q6H PRN 04/03/18 05/11/18 Unknown calcium carbonate [Calcium 500] 500 mg PO DAILY 04/03/18 05/11/18 Unknown cyanocobalamin (vitamin B-12) 1,000 mcg PO DAILY 05/11/18 05/11/18 Unknown Past Medical History Medical History Hyperlipidemia Cellulitis [facility] 10/29/17, small opening at site of previous ostomy, was treated with ABX IV and PO. Crohns disease H/o ileostomy and subsequent reversal, previously had multiple SBOs. On Humira, was stopped 04/21. Deep vein thrombosis A COUPLE YEARS AGO (REASON FOR ELIQUIS) UNSURE REASON FOR BLOOD CLOT GERD (gastroesophageal reflux disease) Insomnia Migraine Morbid obesity with BMI of 40.0-44.9, adult Osteoarthritis Pulmonary emboli 2016, ON ELIQUIS AND FOLLOWING WITH PULM FOR THIS NOW. Past Family History Family History Mother , CT at 44 y/o Heart attack Past Surgical History Surgical History H/O colonoscopy History of bilateral tubal ligation [place] of [place] [facility] [place] of esophagogastroduodenoscopy (EGD) History of myringotomy History of reversal of [place]ostomy [place] [facility] [place] of [place] extraction Past Anesthesia History No Hx of Anesthesia Complications and No Family Hx of Anesthesia Complications History of PONV No Motion Sickness Screening History of [facility] Social History Smoking Status: Current some day smoker tobacco type: cigarettes Do You Dip or Chew Tobacco: No Smoking End Date: QUIT 2016 BUT WILL HAVE A CIG. EVERY ONCE IN A WHILE/NONE IN LAST 30 DAYS Hx Alcohol Use: No Hx Substance Use: No substance use type: does not use Exercise / Class Metabolic Activity III < 4 Walking/Shop/Light housework (Uses walker for ambulation 2/2 arthritis/knee pain) Review of Systems Pt denies any recent chest pain, shortness of breath, palpitations, cough, fever or URI. Some clear sinus drainage, using Neti Pot. Physical Exam Vital Signs BP: 127/80 P: 69bpm SPO2: 96% RA T: 98.6 F R: 16 ENMT Mouth: + dentures and + edentulous Thyromental Distance: < 3.5 Finger Breadths (3) Mallampati Class: III Neck normal visual inspection; neck extension not limited Respiratory normal respiratory effort Auscultation: lungs clear to auscultation bilaterally Cardiovascular Rate/Rhythm: regular rate and regular rhythm Heart Sounds: no murmur Vessels: no carotid bruit Extremities: no edema Testing Electrocardiogram Date: 12/31/17 Findings: + NSR @ (79) Low voltage QRS. Chest X-Ray Date: 12/31/17 Findings: + NAD Echocardiogram Date: 05/18/17 EF: 53% Technically limited study enhanced echo contrast. Normal LV size and EF. Left ventricular hypertrophy. No significant valve pathology identified. No evidence for pulmonary hypertension or right-sided chamber enlargement. Laboratory Results 05/12/18 11:28 05/12/18 11:28 PT 10.3 Seconds (9.0-12.0) 05/12/18 11:28 INR 1.0 (0.9-1.1) 05/12/18 11:28 APTT 30.1 Seconds (21.0-31.0) 05/12/18 11:28
--- NOTE | 2018-05-12 11:24 | PAT Medication Instructions ---
Medication Instructions Date of Service May 12, 2018 Home Medications Eliquis 5 mg PO BID Humira 40 mg SUBCUT DIRECTED acetaminophen [Tylenol 8 Hour] 650 mg PO Q8H PRN atorvastatin 20 mg PO QAM cholecalciferol (vitamin D3) 1,000 unit PO QAM loratadine 10 mg PO QAM montelukast 10 mg PO QAM ondansetron HCl [Zofran] 4 mg PO TID PRN pantoprazole 40 mg PO QAM tramadol 50 mg PO Q6H PRN trazodone 50 mg PO HS PRN rqvhatfbbi-mrunvrxbacscr-cqmx 1 cap PO Q6H PRN calcium carbonate [Calcium 500] 500 mg PO DAILY cyanocobalamin (vitamin B-12) 1,000 mcg PO DAILY ASK your prescriber and surgeon Eliquis 5 mg PO BID (to be stopped 72 hours prir to surgery) Humira 40 mg SUBCUT DIRECTED (already on hold) DO NOT take the morning of surgery cholecalciferol (vitamin D3) 1,000 unit PO QAM loratadine 10 mg PO QAM montelukast 10 mg PO QAM ecnfsdcfow-grjdrmdbfohrh-iicc 1 cap PO Q6H PRN calcium carbonate [Calcium 500] 500 mg PO DAILY cyanocobalamin (vitamin B-12) 1,000 mcg PO DAILY Take morning of surgery With a small sip of water, OTHERWISE NOTHING TO EAT OR DRINK AFTER MIDNIGHT: acetaminophen [Tylenol 8 Hour] 650 mg PO Q8H PRN (if needed, may be taken up to four hours before surgery) atorvastatin 20 mg PO QAM ondansetron HCl [Zofran] 4 mg PO TID PRN (if needed) pantoprazole 40 mg PO QAM tramadol 50 mg PO Q6H PRN (if needed, may be taken up to four hours before surgery) Take evening before surgery acetaminophen [Tylenol 8 Hour] 650 mg PO Q8H PRN (if needed) ondansetron HCl [Zofran] 4 mg PO TID PRN (if needed) tramadol 50 mg PO Q6H PRN (if needed) trazodone 50 mg PO HS PRN (if needed) Other Notes If you have any questions please call us at [phone] or [phone] or [phone] or [phone]
[2018-05-12 12:17] LABS: Basophils # (auto) 0.03 K/uL (0-0.2); Basophils % (auto) 0.5 %; Eosinophils # (auto) 0.17 K/uL (0-0.5); Eosinophils % (auto) 3.1 %; Hematocrit (blood only) 39.5 % (37-47); Hemoglobin 13.8 g/dL (12.0-16.0); Immature Granulocytes # (auto) 0.01 K/uL (0.00-0.02); Immature Granulocytes % (auto) 0.2 %; Lymphocytes % (auto) 40.2 %; Mean Corpuscular Hgb Conc 34.9 g/dL (32-36); Mean Corpuscular Volume 91.2 fL (80-100); Mean Platelet Volume 9.8 fL (7.4-10.4); Monocytes # (auto) 0.55 K/uL (0.11-0.59); Monocytes % (auto) 10.1 %; Neutrophils # (auto) 2.51 K/uL (1.4-6.5); Neutrophils % (auto) 45.9 %; Platelet Count 209 K/uL (130-400); RDW Coefficient of Variation 13.8 % (11.5-14.5); RDW Standard Deviation 46.3 fL (36.4-46.3); Red Blood Count 4.33 M/uL (4.2-5.4); White Blood Count 5.47 K/uL (4.8-10.8)
[2018-05-12 12:30] LABS: BUN Creatinine Ratio 22.8 (10-20); Calcium 9.3 mg/dl (8.5-10.1); Creatinine Clr Calc Pharmacy 71.8 ml/min; Est GFR (African American) 62.1; Est GFR (Non-African American) 53.6; Potassium 4.5 mmol/L (3.5-5.1)
[2018-05-12 12:34] LABS: Partial Thromboplastin Ratio 1.1; Partial Thromboplastin Time 30.1 Seconds (21.0-31.0); Prothrombin Time 10.3 Seconds (9.0-12.0)
[2018-05-18] MEDS ORDERED: CEFAZOLIN 2000MG 2,000 MG/15 ML SYR IV SCH (06:00)
[2018-05-18] MEDS ORDERED: LR 15ML/HR IV SCH (06:00)
[2018-05-18] MEDS ORDERED: ROCURONIUM BROMIDE 10 MG/ML 5 ML VIAL ONE (06:56)
[2018-05-18] MEDS ORDERED: LIDOCAINE HCL 2% 2 ML VIAL/AMP(20MG/ML) INFIL ONE (06:56)
[2018-05-18] MEDS ORDERED: PROPOFOL IV EMULSION 10 MG/ML 20 ML VIAL IV ONE (06:56)
[2018-05-18] MEDS ORDERED: MIDAZOLAM HCL 1 MG/ML 2ML VIAL ONE (06:57)
[2018-05-18] MEDS ORDERED: fentaNYL citrate 100 MCG/2 ML VIAL ONE ×3 (06:57→09:57)
--- NOTE | 2018-05-18 06:58 | History & Physical Bridge Note ---
Date of Service May 18, 2018 History & Physical Bridge Note I have examined the patient, reviewed the History & Physical and in the interval since the performance of the History & Physical I have noted the following changes of clinical significance: no changes noted
[2018-05-18] MEDS ORDERED: EPINEPHrine INJ 1 MG/ML AMP ONE (07:09)
[2018-05-18] MEDS ORDERED: LIDOCAINE HCL 1% 20 ML VIAL ONE (07:10)
[2018-05-18] MEDS ORDERED: LIDOCAINE/EPINEPHRINE 1% 20 ML VIAL ONE (07:10)
[2018-05-18] MEDS ORDERED: BUPIVACAINE 0.25% 30 ML VIAL ONE (07:10)
[2018-05-18] MEDS ORDERED: ACETAMINOPHEN 1000 MG/100 ML IV IV ONE (07:46)
[2018-05-18] MEDS ORDERED: ONDANSETRON INJ 2 MG/ML 2 ML VIAL ONE ×2 (08:47→09:28)
[2018-05-18] MEDS ORDERED: ePHEDrine sulfate 50 MG/ML AMP ONE (09:28)
[2018-05-18] MEDS ORDERED: NEOSTIGMINE METHYLSULFATE 5 MG/5 ML SYR ONE (09:28)
[2018-05-18] MEDS ORDERED: GLYCOPYRROLATE 0.2 MG/ML VIAL ONE (09:28)
--- NOTE | 2018-05-18 10:28 | Post Operative Brief Note ---
Immediate Post Op Note v1 Date of Surgery May 18, 2018 Pre & Post Diagnosis Operation Date: 05/18/18 07:30 Pre-Op Diagnosis: Abdominal Pannus Post-Op Diagnosis: Abdominal Pannus Procedure Operation Date: 05/18/18 07:30 Actual Procedures p Panniculectomy(Not Applicable) - Jamilah Adams MD Surgeon Jamilah Adams MD Transfer Table Operator Arianna Amado PA-C Estimated Blood Loss 150 Findings Consistent with Post-Op Diagnosis umbilicus non viable small fascial defect 1x1 cm at ileostomy take down site right periumbilical area Drains Lawson Catheter (16 serbian 10ml balloon) and Darrel-Grant Drain (x3 - 15 serbian)
[2018-05-18] MEDS ORDERED: PROMETHAZINE HCL 12.5 MG in SODIUM CHLORIDE 0.9% 50 ML IV PRN ×2 (10:45→12:42)
[2018-05-18] MEDS ORDERED: ATROPINE SULFATE 0.1 MG/ML 10ML SYR IV PRN (10:45)
[2018-05-18] MEDS ORDERED: ePHEDrine sulfate 50 MG/ML AMP IV PRN (10:45)
[2018-05-18] MEDS ORDERED: ONDANSETRON INJ 2 MG/ML 2 ML VIAL IV PRN ×2 (10:45→12:42)
[2018-05-18] MEDS ORDERED: DEXAMETHASONE SOD INJ 4 MG/ML VIAL IV PRN (10:45)
[2018-05-18] MEDS: fentaNYL citrate 100 MCG/2 ML VIAL IV PRN ×4 (11:15→11:34)
[2018-05-18] MEDS ORDERED: SCOPOLAMINE 1.5 MG TDSY TD ONE (11:25)
[2018-05-18] MEDS ORDERED: SCOPOLAMINE 1.5 MG TDSY ONE (11:26)
[2018-05-18] MEDS: HYDROmorphone INJ 2 MG/ML SYR/VIAL IV PRN ×6 (11:39→12:05)
[2018-05-18] MEDS ORDERED: HYDROmorphone INJ 0.5 MG/0.5 ML SYR IM PRN (12:01)
[2018-05-18] MEDS ORDERED: TRAMADOL HCL 50 MG TABLET PO PRN (12:42)
[2018-05-18] MEDS ORDERED: LORazepam 0.5 MG TAB PO PRN (12:42)
[2018-05-18] MEDS ORDERED: MoRPHine SULFATE 4 MG/ML 1 ML CARP\\VIAL IV PRN ×2 (12:42)
[2018-05-18] MEDS ORDERED: MoRPHine SULFATE 2 MG/ML CARP IV PRN (12:42)
[2018-05-18] MEDS ORDERED: OXYCODONE/ACETAMINOPHEN 5mg/325mg TAB PO PRN (12:42)
[2018-05-18] MEDS ORDERED: ACETAMINOPHEN 325 MG TAB PO PRN (12:42)
[2018-05-18] MEDS ORDERED: DiphenhydrAMINE HCL 50 MG/ML VIAL IV PRN (12:42)
[2018-05-18] MEDS ORDERED: ePHEDrine sulfate 50 MG/ML SYR ONE (13:35)
--- NOTE | 2018-05-18 13:37 | Anesthesiology Progress Note ---
Date of Service May 18, 2018 Anesthesia Post Procedure Vital Signs Vital Signs: Temp Pulse Pulse Pulse Resp BP BP 05/18/18 12:24 36.4 C L 05/18/18 12:20 59 L 20 120/66 05/18/18 12:15 58 L 15 123/67 05/18/18 12:10 59 L 17 110/66 05/18/18 12:05 70 20 102/58 L 05/18/18 12:00 55 L 14 106/61 05/18/18 11:55 68 13 124/70 05/18/18 11:50 65 17 109/57 L 05/18/18 11:45 56 L 18 141/68 H 05/18/18 11:40 54 L 18 126/69 05/18/18 11:35 71 12 134/68 05/18/18 11:30 57 L 15 145/71 H 05/18/18 11:25 49 L 17 135/71 05/18/18 11:20 71 13 150/73 H 05/18/18 11:15 68 20 122/94 05/18/18 11:10 70 20 150/80 H 05/18/18 11:05 63 16 148/72 H 05/18/18 11:00 66 20 158/79 H 05/18/18 10:55 73 20 143/78 H 05/18/18 10:50 67 20 162/84 H 05/18/18 10:45 71 16 171/84 H 05/18/18 10:40 36.1 C L 68 66 14 151/74 H 151/74 H 05/18/18 06:01 36.8 C 72 20 131/66 Pulse Ox 05/18/18 12:24 97 05/18/18 12:20 100 05/18/18 12:15 98 05/18/18 12:10 97 05/18/18 12:05 100 05/18/18 12:00 98 05/18/18 11:55 100 05/18/18 11:50 99 05/18/18 11:45 99 05/18/18 11:40 97 05/18/18 11:35 96 05/18/18 11:30 94 05/18/18 11:25 94 05/18/18 11:20 96 05/18/18 11:15 97 05/18/18 11:10 96 05/18/18 11:05 95 05/18/18 11:00 93 05/18/18 10:55 98 05/18/18 10:50 94 05/18/18 10:45 96 05/18/18 10:40 95 05/18/18 06:01 96 Pain Intensity Abdomen: Pain Intensity: 6 Notes Mental Status: alert / awake / arousable and participated in evaluation Patient Amnestic to Procedure: Yes Nausea / Vomiting: adequately controlled Pain: adequately controlled Airway Patency, RR, SpO2: stable & adequate BP & HR: stable & adequate Hydration State: stable & adequate Anesthetic Complications: no major complications apparent
--- NOTE | 2018-05-18 13:44 | Operative Report ---
Post Operative Report Pre & Post Diagnosis Operation Date: 05/18/18 07:30 Pre-Op Diagnosis: Abdominal Pannus Post-Op Diagnosis: Abdominal Pannus, small right ventral hernia Procedure Operation Date: 05/18/18 07:30 Actual Procedures p Panniculectomy(Not Applicable), sutured repair of ventral hernia - Jamilah Adams MD Surgeon Jamilah Adams MD Chemical Equipment Repairer Arianna Amado PA-C Estimated Blood Loss 150 Findings See Below approx 1 cm defect of fascia noted at ileostomy reversal site. Easily reducible with well defined fascial edges Specimens abdominal pannus Drains ALBERT x3 Anesthesia Type General Complications none Indications s/p 150 lb weight loss, with large overhanging pannus impairing ambulation and causing intertrigo Description of Procedure Risks, benefits, and alternatives of the procedure were explained to the patient who agreed and signed consent. She was identified and marked in the preoperative holding area. She was brought to the operating room where she was positioned supine and placed under general anesthesia without incident. Lawson catheter was placed. Surgical site was prepped and draped sterilely. A time-out procedure was performed. I reassessed my markings which included a lower horizontal abdominal incision with the midportion 9 cm above the vulvar commissure. Incision was marked bilaterally to the ASIS. I began by injecting 1% lidocaine with epinephrine along the planned incision. The lower abdominal incision was made using a peak plasmablade to incise epidermis and superficial dermis followed by electrocautery to incise deep dermis, subcutaneous fat, Jeff's fascia down to the abdominal wall. Care was taken to bevel superiorly in order to avoid encountering the inguinal region. Electrocautery was used to elevate the anterior abdominal skin flap ligating the perforating vessels with 3-0 Vicryl ties and electrocautery. Dissection was carried up to the level of the umbilicus in the midline. At this point, a 15-blade scalpel was used to circumscribe the umbilicus. A vertical midline incision was then made from the incision to the umbilicus and divided in the midline using electrocautery. The umbilicus was then dissected out using electrocautery down to abdominal wall. The umbilical stalk was observed throughout the procedure and at the time of closing was dusky with no bleeding. As I had previously discussed with the patient the probability that we would resect the umbilicus, I did so prior to closing. To the right lateral of the umbilicus, a 1 cm fascial defect was noted at the site of prior ileostomy reversal . As the contents were easily reducible, 2 figure of 8 0-prolene sutures were used to primarily repair this defect. At this point, the bed was flexed and the mid portion of the superior skin flap was inset above the mons pubis using 2-0 Vicryl suture. Skin flaps were marked for excision. A plasmablade was used to make these incisions and the incision was deepened through dermis, subcutaneous fat, Jeff's fat using electrocautery. 3 15 Italian Tristan drains were placed in the wound bed and brought out through a separate stab incision in the mons pubis. The drains were sutured into place using 3-0 nylon. The umbilicus was brought out through an inverted triangular incision in the abdominal wall. This was performed using a 15-blade scalpel. Wound closure was then begun lateral to medial using 2-0 Vicryl Jeff's fascia sutures, 2-0 Vicryl deep dermal sutures, 2-0 PDO running superficial Quill suture. the incision was dressed using Dermabond Prineo followed by dry dressings and an abdominal binder. Prior to closure, a total of 10 mL of 0.25% Marcaine plain were injected into the fascia as well as along the incisions. The procedure was tolerated well. The patient was awakened and transferred to recovery in satisfactory condition. Arianna Amado was present and scrubbed throughout the entire procedure and was instrumental in providing retraction of the pannus and assisting in simultaneous wound closure. I attest to the content of the Intraoperative Record and any orders documented therein. Any exceptions are noted below.
[2018-05-18] MEDS: CEFAZOLIN 2000MG 2,000 MG/15 ML SYR IV SCH ×2 (16:22→23:52)
[2018-05-18] MEDS: CHECK SCOPOLAMINE PATCH PLACEMENT SCH (16:29)
[2018-05-18] MEDS: D5W AND 1/2NSS 1,000 ML IV SCH (19:47)
[2018-05-18] MEDS ORDERED: ENOXAPARIN INJ 40 MG/0.4 ML SYR SQ SCH (21:00)
[2018-05-18] MEDS: OXYCODONE/ACETAMINOPHEN 5mg/325mg TAB PO PRN (23:52)
[2018-05-19] MEDS: CHECK SCOPOLAMINE PATCH PLACEMENT SCH ×2 (00:05→08:59)
[2018-05-19] MEDS: D5W AND 1/2NSS 1,000 ML IV SCH ×2 (05:36→05:55)
[2018-05-19] MEDS ORDERED: CEFAZOLIN 3000MG 65 ML IV SCH (06:00)
[2018-05-19] MEDS: OXYCODONE/ACETAMINOPHEN 5mg/325mg TAB PO PRN ×2 (06:03→15:37)
[2018-05-19] MEDS ORDERED: MULTIVITAMIN TAB PO SCH (09:00)
[2018-05-19] MEDS ORDERED: LORATADINE 10 MG TAB PO SCH (09:00)
[2018-05-19] MEDS ORDERED: PANTOprazole 40 MG TAB PO SCH (09:00)
[2018-05-19] MEDS ORDERED: ATORVASTATIN 20 MG TAB PO SCH (09:00)
[2018-05-19] MEDS ORDERED: MONTELUKAST SODIUM 10 MG TABLET PO SCH (09:00)
--- NOTE | 2018-05-19 09:00 | Anesthesiology Progress Note ---
Date of Service May 19, 2018 Anesthesia Post Procedure Vital Signs Vital Signs: Temp Pulse Pulse Pulse Resp BP BP 05/19/18 06:52 36.9 C 71 16 05/19/18 04:10 37.0 C 70 16 05/18/18 23:01 36.8 C 73 14 05/18/18 15:35 36.4 C L 73 18 135/71 05/18/18 14:35 36.4 C L 73 16 111/68 05/18/18 13:48 61 16 141/71 H 05/18/18 13:05 36.4 C L 63 16 130/62 05/18/18 12:35 36.3 C L 61 12 130/68 05/18/18 12:24 36.4 C L 05/18/18 12:20 59 L 20 120/66 05/18/18 12:15 58 L 15 123/67 05/18/18 12:10 59 L 17 110/66 05/18/18 12:05 70 20 102/58 L 05/18/18 12:00 55 L 14 106/61 05/18/18 11:55 68 13 124/70 05/18/18 11:50 65 17 109/57 L 05/18/18 11:45 56 L 18 141/68 H 05/18/18 11:40 54 L 18 126/69 05/18/18 11:35 71 12 134/68 05/18/18 11:30 57 L 15 145/71 H 05/18/18 11:25 49 L 17 135/71 05/18/18 11:20 71 13 150/73 H 05/18/18 11:15 68 20 122/94 05/18/18 11:10 70 20 150/80 H 05/18/18 11:05 63 16 148/72 H 05/18/18 11:00 66 20 158/79 H 05/18/18 10:55 73 20 143/78 H 05/18/18 10:50 67 20 162/84 H 05/18/18 10:45 71 16 171/84 H 05/18/18 10:40 36.1 C L 68 66 14 151/74 H 151/74 H BP Pulse Ox 05/19/18 06:52 123/70 92 05/19/18 04:10 122/66 91 05/18/18 23:01 102/59 L 93 05/18/18 15:35 100 05/18/18 14:35 99 05/18/18 13:48 99 05/18/18 13:05 98 05/18/18 12:35 99 05/18/18 12:24 97 05/18/18 12:20 100 05/18/18 12:15 98 05/18/18 12:10 97 05/18/18 12:05 100 05/18/18 12:00 98 05/18/18 11:55 100 05/18/18 11:50 99 05/18/18 11:45 99 05/18/18 11:40 97 05/18/18 11:35 96 05/18/18 11:30 94 05/18/18 11:25 94 05/18/18 11:20 96 05/18/18 11:15 97 05/18/18 11:10 96 05/18/18 11:05 95 05/18/18 11:00 93 05/18/18 10:55 98 05/18/18 10:50 94 05/18/18 10:45 96 05/18/18 10:40 95 Pain Intensity Abdomen: Pain Intensity: 8 Head: Pain Intensity: 8 Notes Mental Status: alert / awake / arousable and participated in evaluation Patient Amnestic to Procedure: Yes Nausea / Vomiting: adequately controlled Pain: adequately controlled Airway Patency, RR, SpO2: stable & adequate BP & HR: stable & adequate Hydration State: stable & adequate Anesthetic Complications: no major complications apparent and Pt Satisfied with anesthetic care
--- NOTE | 2018-05-19 09:28 | Surgery Progress Note ---
Date of Service May 19, 2018 Assessment & Plan (1) Abdominal pannus: S/P panniculectomy 1. POD#1. VSS and patient is able to ambulate, void and tolerate a regular diet. Plan to d/c home later today. Patient will need Xeroform dressings sent home for changing at her drain site. Will consult case management to help set up home nursing care as it will be difficult for patient to change her dressings at drains. F/U in office 14 days Present on Admission?: Yes Supervising Physician Co-Signing Physician Notes I personally saw and examined this patient, agree with Arianna Peterson exam and plan. OK for discharge. Subjective Patient is resting comfortably in chair. She has ambulated and successfully voided. Her nausea has resolved and she is tolerating a regular diet. She comments that walking is already easier without her pannus obstructing ROM. Physical Exam Vital Signs (Past 24 Hours): Last Vital Signs Temp 36.9 C 05/19/18 06:52 Pulse 71 05/19/18 06:52 Resp 16 05/19/18 06:52 BP 123/70 05/19/18 06:52 Pulse Ox 92 05/19/18 06:52 Constitutional: WD/WN, vitals as above no acute distress Skin: + incision (CDI. drains with 10cc/each bloody and serous output)
--- NOTE | 2018-05-19 09:41 | Discharge Summary ---
Date of Service May 19, 2018 Admission HPI Per Admitting Provider see admission H&P Admission Exam Per Admitting Provider see admission H&P Principal Diagnosis abdominal pannus Discharge Exam Constitutional WD/WN, vitals as above no acute distress Skin + incision (CDI. drains with 10cc/each bloody and serous output) Discharge Data Allergies Allergy/AdvReac Type Severity Reaction Status Date / Time No Known Allergies Allergy Verified 05/11/18 08:45 Consultations 05/19/18 08:01 Consult Case Management - Discharge Planning Stat Procedures Performed Operation Date: 05/18/18 07:30 Actual Procedures p Panniculectomy(Not Applicable) - Jamilah Adams MD Hospital Course (1) Abdominal pannus: Patient presented to [facility] with history of abdominal pannus. She was taken to the OR an underwent panniculectomy. There were no intraoperative complications. On POD#1, the patient was feeling well and had good pain control. She was ambulating, voiding, and tolerating a regular diet. On exam, her vital signs were stable and incision clean, dry and intact. Her drains have appropriate output. Patient was discharged home. Total Time Total Time Spent Total Time Spent (In Minutes): 10 Total Time Includes: Examination of the Patient, Discharge Planning and Medication Reconciliation Discharge Plan Discharge Items Patient Disposition: Home - Home Health Services Reason For Visit: Abdominal Pannus Discharge Diagnosis: s/p panniculectomy Discharge Goals: Decrease discomfort and Improve function Activity: As commented below Non-emergency contact: Surgeon Call non-emergency contact if: you have any medication questions, you have a fever, your wound has increased redness and your wound has increased drainage Follow-up/Referrals: Awa Richard DO [Primary Care Provider] - Diet: Regular Addtl Provider Instructions: ACTIVITY RECOMMENDATIONS: __Normal activities _x_No bending, lifting or straining __No driving __Driving allowed when you are off pain medications _x_Walking permitted and encouraged __You should have help at home for ___ days DRESSINGS: __No dressings required __Keep dressings dry/in place until first office visit _x_Remove dressings _tomorrow__ and leave dressings off. Wear a cotton T-Shirt under abdominal binder for comfort. Dressings around drain sites need to be changed daily, or when home nursing is available. Cut one small strip of Xeroform per drain, wrap wound drain insertion site and cover with gauze and tape. __Apply ice ___ days __Remove dressings and reapply garment __Apply antibiotic ointment (Bacitracin, Neosporin, etc) to wounds 3-4 times/day for 10 days BATHING: __Keep dressings dry _x_Sponge bathing permitted _x_Showering permitted TOMORROW (05/20/18) _X_No swimming, hot tubs or soaking in a tub MEDICATIONS: Resume previous medications unless instructed otherwise by your surgeon. _X_Do not use aspirin, Motrin, Advil or Ibuprofen as these may promote bleeding. Please use Tylenol. _X_Prescription(s) provided: pain medication was provided at your last office visit OTHER INSTRUCTIONS: _x_Record drain output 2-3 times per day SPECIAL CARE INSTRUCTIONS: * It is normal to have a mild fever after surgery. If your temperature is higher than 101.5 degrees F, please call the office at [phone]. * Constipation is a typical side effect of pain medication. An mjvh-bqv-zydtcrg stool softener will help relieve this. * Leaking around surgical drains may occur and should not cause concern. Sometimes these drains become clogged. If this happens, remove the bulb and milk the clot out of the tube, then replace the bulb. * Drainage from wounds after liposuction is normal and should be expected. Garments will become soiled. You should protect furniture and bedding. This drainage should mostly subside within 2-3 days. Leave garments in place unless instructed to remove them. * If you have unusual drainage from a wound or are concerned you have an infection or have any questions or concerns, please call the office at [phone]. FOLLOW UP VISIT: If not already scheduled, please call the office, , when you return home after surgery to schedule an appointment to be seen in _11__ days. Call to be seen sooner with any questions or concerns. Prescriptions: Continued atorvastatin 20 mg Tablet 20 mg PO QAM RF: 0 trazodone 50 mg Tablet 50 mg PO HS PRN (Reason: Sleep) RF: 0 ondansetron HCl [Zofran] 4 mg Tablet 4 mg PO TID PRN (Reason: Nausea) RF: 0 tramadol 50 mg Tablet 50 mg PO Q6H PRN (Reason: Pain) RF: 0 acetaminophen [Tylenol 8 Hour] 650 mg Tablet Extended Release 650 mg PO Q8H PRN (Reason: Pain) RF: 0 pantoprazole 40 mg Tablet,Delayed Release (Dr/Ec) 40 mg PO QAM RF: 0 montelukast 10 mg Tablet 10 mg PO QAM RF: 0 cholecalciferol (vitamin D3) [Vitamin D3] 1,000 unit Capsule 1,000 unit PO QAM RF: 0 loratadine 10 mg Capsule 10 mg PO QAM RF: 0 calcium carbonate [Calcium 500] 500 mg calcium (1,250 mg) Tablet 500 mg PO DAILY RF: 0 ghpzovbllx-rqoxgxvgtmnqj-mqkx 50-300-40 mg Capsule 1 cap PO Q6H PRN (Reason: Headache) RF: 0 cyanocobalamin (vitamin B-12) 1,000 mcg Tablet 1,000 mcg PO DAILY RF: 0 Discontinued Eliquis 5 mg Tablet 5 mg PO BID RF: 0 Humira 40 mg/0.4 mL Syringe Kit 40 mg SUBCUT DIRECTED RF: 0 Stand-Alone Forms: [facility] Discharge Orders: Discharge Order (Routine); Ordered 05/19/18 Ordered By: Arianna Amado Admission Data Admit Date/Time: 05/18/18 10:50 Attending Provider: Jamilah Adams Admit Provider: Jamilah Adams Primary Care Provider: Awa Richard Service: Surgical Services Other Pending Studies at Discharge: Yes Studies:: pathology
--- NOTE | 2018-05-19 09:43 | Discharge Summary ---
Date of Service May 19, 2018 Admission HPI Per Admitting Provider see admission H&P Principal Diagnosis abdominal pannus Discharge Exam Constitutional WD/WN, vitals as above no acute distress Skin + incision (CDI. drains with 10cc/each bloody and serous output) Discharge Data Allergies Allergy/AdvReac Type Severity Reaction Status Date / Time No Known Allergies Allergy Verified 05/11/18 08:45 Consultations 05/19/18 08:01 Consult Case Management - Discharge Planning Stat Procedures Performed Operation Date: 05/18/18 07:30 Actual Procedures p Panniculectomy(Not Applicable) - Jamilah Adams MD Hospital Course (1) Abdominal pannus: Patient presented to [facility] with history of abdominal pannus. She was taken to the OR an underwent panniculectomy. There were no intraoperative complications. On POD#1, the patient was feeling well and had good pain control. She was ambulating, voiding, and tolerating a regular diet. On exam, her vital signs were stable and incision clean, dry and intact. Her drains have appropriate output. Case managment was consulted for coordinating home nursing care. Patient was discharged home. Total Time Total Time Spent Total Time Spent (In Minutes): 10 Total Time Includes: Examination of the Patient, Discharge Planning and Medication Reconciliation Discharge Plan Discharge Items Patient Disposition: Home - Home Health Services Reason For Visit: Abdominal Pannus Discharge Diagnosis: s/p panniculectomy Discharge Goals: Decrease discomfort and Improve function Activity: As commented below Non-emergency contact: Surgeon Call non-emergency contact if: you have any medication questions, you have a fever, your wound has increased redness and your wound has increased drainage Follow-up/Referrals: Awa Richard DO [Primary Care Provider] - Diet: Regular Addtl Provider Instructions: ACTIVITY RECOMMENDATIONS: __Normal activities _x_No bending, lifting or straining __No driving __Driving allowed when you are off pain medications _x_Walking permitted and encouraged __You should have help at home for ___ days DRESSINGS: __No dressings required __Keep dressings dry/in place until first office visit _x_Remove dressings _tomorrow__ and leave dressings off. Wear a cotton T-Shirt under abdominal binder for comfort. Dressings around drain sites need to be changed daily, or when home nursing is available. Cut one small strip of Xeroform per drain, wrap wound drain insertion site and cover with gauze and tape. __Apply ice ___ days __Remove dressings and reapply garment __Apply antibiotic ointment (Bacitracin, Neosporin, etc) to wounds 3-4 times/day for 10 days BATHING: __Keep dressings dry _x_Sponge bathing permitted _x_Showering permitted TOMORROW (05/20/18) _X_No swimming, hot tubs or soaking in a tub MEDICATIONS: Resume previous medications unless instructed otherwise by your surgeon. _X_Do not use aspirin, Motrin, Advil or Ibuprofen as these may promote bleeding. Please use Tylenol. _X_Prescription(s) provided: pain medication was provided at your last office visit OTHER INSTRUCTIONS: _x_Record drain output 2-3 times per day SPECIAL CARE INSTRUCTIONS: * It is normal to have a mild fever after surgery. If your temperature is higher than 101.5 degrees F, please call the office at [phone]. * Constipation is a typical side effect of pain medication. An buuo-wmt-yeigzzp stool softener will help relieve this. * Leaking around surgical drains may occur and should not cause concern. Sometimes these drains become clogged. If this happens, remove the bulb and milk the clot out of the tube, then replace the bulb. * Drainage from wounds after liposuction is normal and should be expected. Garments will become soiled. You should protect furniture and bedding. This drainage should mostly subside within 2-3 days. Leave garments in place unless instructed to remove them. * If you have unusual drainage from a wound or are concerned you have an infection or have any questions or concerns, please call the office at [phone]. FOLLOW UP VISIT: If not already scheduled, please call the office, , when you return home after surgery to schedule an appointment to be seen in _11__ days. Call to be seen sooner with any questions or concerns. Prescriptions: Continued atorvastatin 20 mg Tablet 20 mg PO QAM RF: 0 trazodone 50 mg Tablet 50 mg PO HS PRN (Reason: Sleep) RF: 0 ondansetron HCl [Zofran] 4 mg Tablet 4 mg PO TID PRN (Reason: Nausea) RF: 0 tramadol 50 mg Tablet 50 mg PO Q6H PRN (Reason: Pain) RF: 0 acetaminophen [Tylenol 8 Hour] 650 mg Tablet Extended Release 650 mg PO Q8H PRN (Reason: Pain) RF: 0 pantoprazole 40 mg Tablet,Delayed Release (Dr/Ec) 40 mg PO QAM RF: 0 montelukast 10 mg Tablet 10 mg PO QAM RF: 0 cholecalciferol (vitamin D3) [Vitamin D3] 1,000 unit Capsule 1,000 unit PO QAM RF: 0 loratadine 10 mg Capsule 10 mg PO QAM RF: 0 calcium carbonate [Calcium 500] 500 mg calcium (1,250 mg) Tablet 500 mg PO DAILY RF: 0 xjonplpeqs-khrxgarxtntwg-djnh 50-300-40 mg Capsule 1 cap PO Q6H PRN (Reason: Headache) RF: 0 cyanocobalamin (vitamin B-12) 1,000 mcg Tablet 1,000 mcg PO DAILY RF: 0 Discontinued Eliquis 5 mg Tablet 5 mg PO BID RF: 0 Humira 40 mg/0.4 mL Syringe Kit 40 mg SUBCUT DIRECTED RF: 0 Stand-Alone Forms: [facility] Discharge Orders: Discharge Order (Routine); Ordered 05/19/18 Ordered By: Arianna Amado Admission Data Admit Date/Time: 05/18/18 10:50 Attending Provider: Jamilah Adams Admit Provider: Jamilah Adams Primary Care Provider: Awa Richard Service: Surgical Services Other Pending Studies at Discharge: Yes Studies:: pathology
== END 2018-05-19 17:17 | disposition home health service (06) ==
LOC: 3W 05:18 → ASU 05:18

== ENCOUNTER 2018-08-26 07:08 | Inpatient (IN) ==
--- NOTE | 2018-08-02 11:29 | Anesthesiology Consultation ---
Date of Service August 02, 2018 Assessment & Plan (1) Encounter for pre-operative examination: Chart Review Chart Review: Acceptable Risk for Surgery and Patient seen in Pre Admission Testing Consults Requested none Teaching & Discussion Pre-Anesthesia Teaching/Discussion Notes: Instructed NPO after midnight before surgery, except medications with 15 cc of water. Medication instructions provided according to the PAT guidelines. History Surgery Operation Date: 08/26/18 13:45 Proposed Procedures p Left Total Knee Arthroplasty - Oz Camacho DO Height/Weight Height: 5 ft 6 in Weight: 122.1 kg Allergies Allergy/AdvReac Type Severity Reaction Status Date / Time No Known Allergies Allergy Verified 07/25/18 10:22 Medications Home Medications Medication Instructions Recorded Confirmed Last Taken acetaminophen [Tylenol 8 Hour] 650 mg PO Q8H PRN 10/08/17 07/25/18 05/17/18 19:00 atorvastatin 20 mg PO QAM 10/08/17 07/25/18 05/17/18 09:00 loratadine 10 mg PO QAM 10/08/17 07/25/18 05/16/18 09:00 montelukast 10 mg PO QAM 10/08/17 07/25/18 05/16/18 09:00 pantoprazole 40 mg PO QAM 10/08/17 07/25/18 05/17/18 09:00 trazodone 50 mg PO HS PRN 10/08/17 07/25/18 10/20/17 [id number]-ewywizklurpjc-ldzu 1 cap PO Q6H PRN 04/03/18 07/25/18 Unknown calcium carbonate [Calcium 500] 500 mg PO QAM 04/03/18 07/25/18 05/16/18 09:00 cyanocobalamin (vitamin B-12) 1,000 mcg PO QAM 05/11/18 07/25/18 05/16/18 09:00 apixaban [Eliquis] 5 mg PO BID 06/06/18 07/25/18 Unknown cholecalciferol (vitamin D3) 1,000 5,000 units PO QAM cap 07/13/18 07/25/18 Unknown unit capsule ondansetron HCl 4 mg tablet 4 mg PO ONCE PRN tab 07/13/18 07/25/18 Unknown Past Medical History Medical History Insomnia (Chronic) Crohns disease (Chronic) H/o ileostomy and subsequent reversal, previously had multiple SBOs. On Humira. GERD (gastroesophageal reflux disease) (Chronic) Osteoarthritis (Chronic) Migraine (Chronic) Morbid obesity (Chronic) Hyperlipidemia (Chronic) History of esophageal disorder HAD MULTIPLE SCOPES FOUND NO OBSTRUCTIONS Hx of deep venous thrombosis CURRENTLY ON ELIQUIS Hx of pulmonary embolus Hx of small bowel obstruction Exercise / Class Metabolic Activity III < 4 Walking/Shop/Light housework (Limited due to knee pain. Does own housework. Walks with walker. Denies CP or SOB. ) Past Surgical History Surgical History H/O colonoscopy History of bilateral tubal ligation History of colon resection 09/03/16 [facility] [place] History of esophagogastroduodenoscopy (EGD) 04/03/18 - Grade 1 View, MAC #3, ETT #7.0, HiLo Oral 10/29/17 - Grade 2 View, MAC #3, ETT #7.5, HiLo Oral History of myringotomy History of reversal of ileostomy 08/24/17 [facility] [place] History of tooth extraction Status post panniculectomy 05/18/18 - Grade 1 View, MAC #3, ETT #7.0 Past Anesthesia History No Hx of Anesthesia Complications and No Family Hx of Anesthesia Complications History of PONV History of PONV (After panniculectomy) and Hx of Motion Sickness (If riding in the back seat) Social History Smoking Status: Former smoker tobacco type: cigarettes Smoking cigarettes per day: Smoked off and on x 15 years. Do You Dip or Chew Tobacco: No Smoking End Date: 01/24/2018 Hx Alcohol Use: No Hx Substance Use: No substance use type: does not use Review of Systems Patient denies chest pain, shortness of breath, dyspnea on exertion, cough, wheezing, palpitations. +Joint Pain (Knees) +Acid Reflux (controlled with current medication) Physical Exam Vital Signs BP: 112/72 P: 62 R: 14 T: 98.1 SPO2: 96% on RA Constitutional + morbidly obese ENMT Mouth: + dentures (Upper plate) and + edentulous Thyromental Distance: > or= 3.5 Finger Breadths (4) Mallampati Class: III Neck normal visual inspection and trachea midline; neck extension not limited Respiratory normal respiratory effort Auscultation: lungs clear to auscultation bilaterally Cardiovascular Rate/Rhythm: regular rate and regular rhythm Heart Sounds: no murmur Vessels: no carotid bruit Neurologic moves all extremities Psychiatric Orientation: alert and oriented x 3 Testing Laboratory Results 08/02/18 12:07 08/02/18 12:07 PT 10.3 Seconds (9.0-12.0) 08/02/18 12:07 INR 1.0 (0.9-1.1) 08/02/18 12:07 APTT 30.0 Seconds (21.0-31.0) 08/02/18 12:07 Urine Color Yellow 08/02/18 12:07 Urine Appearance Clear (Clear) 08/02/18 12:07 Urine pH 5.0 (4.5-7.5) 08/02/18 12:07 Ur Specific [place] 1.016 (1.000-1.030) 08/02/18 12:07 Urine Protein Negative (Negative) 08/02/18 12:07 Urine Glucose (UA) Negative (Negative) 08/02/18 12:07 Urine Ketones Negative (Negative) 08/02/18 12:07 Urine Nitrite Negative (Negative) 08/02/18 12:07 Ur Leukocyte Esterase Negative (Negative) 08/02/18 12:07 Blood Type O Positive 08/02/18 12:07 Antibody Screen NEGATIVE 08/02/18 12:07 Electrocardiogram Date: 12/31/17 Findings: + NSR @ (79) Low voltage QRS. Chest X-Ray Date: 12/31/17 Findings: + NAD Echocardiogram Date: 05/18/17 EF: 53% LV Function: normal Valvular Disease: + no significant valvular disease Technically limited study enhanced echo contrast. Normal LV size and EF. Left ventricular hypertrophy. No significant valve pathology identified. No evidence for pulmonary hypertension or right-sided chamber enlargement.
--- NOTE | 2018-08-02 11:31 | PAT Medication Instructions ---
Medication Instructions Date of Service August 02, 2018 Home Medications acetaminophen [Tylenol 8 Hour] 650 mg PO Q8H NEEDED atorvastatin 20 mg PO QAM loratadine 10 mg PO QAM montelukast 10 mg PO QAM pantoprazole 40 mg PO QAM kjnlpupdfn-smnwujzyjljcv-dfls 1 cap PO Q6H NEEDED calcium carbonate [Calcium 500] 500 mg PO QAM cyanocobalamin (vitamin B-12) 1,000 mcg PO QAM apixaban [Eliquis] 5 mg PO BID cholecalciferol (vitamin D3) 1,000 unit capsule 5,000 units PO QAM ondansetron HCl 4 mg tablet 4 mg PO ONCE NEEDED Humira 40 mg SUBCUT Q2 weeks ASK your prescriber and surgeon Humira 40 mg SUBCUT Q2 weeks apixaban [Eliquis] 5 mg PO BID - Must be held for 72 hours prior to surgery to have a spinal DO NOT take the morning of surgery atorvastatin 20 mg PO QAM loratadine 10 mg PO QAM montelukast 10 mg PO QAM lzvboqlzez-omwcszaqcwafh-kvgz 1 cap PO Q6H NEEDED calcium carbonate [Calcium 500] 500 mg PO QAM cyanocobalamin (vitamin B-12) 1,000 mcg PO QAM cholecalciferol (vitamin D3) 1,000 unit capsule 5,000 units PO QAM ondansetron HCl 4 mg tablet 4 mg PO ONCE NEEDED Take morning of surgery With a small sip of water, OTHERWISE NOTHING TO EAT OR DRINK AFTER MIDNIGHT: acetaminophen [Tylenol 8 Hour] 650 mg PO Q8H NEEDED (as needed, stop 4 hours before surgery) pantoprazole 40 mg PO QAM Take evening before surgery acetaminophen [Tylenol 8 Hour] 650 mg PO Q8H NEEDED (as needed) ondansetron HCl 4 mg tablet 4 mg PO ONCE NEEDED Other Notes If you have any questions please call us at [phone] or [phone] or [phone] or [phone]
[2018-08-02 12:45] LABS: Basophils # (auto) 0.02 K/uL (0-0.2); Basophils % (auto) 0.4 %; Eosinophils % (auto) 3.5 %; Hematocrit (blood only) 37.8 % (37-47); Hemoglobin 12.9 g/dL (12.0-16.0); Immature Granulocytes # (auto) 0.02 K/uL (0.00-0.02); Immature Granulocytes % (auto) 0.4 %; Lymphocytes # (auto) 1.85 K/uL (1.2-3.4); Lymphocytes % (auto) 32.7 %; Mean Corpuscular Hgb Conc 34.1 g/dL (32-36); Mean Corpuscular Volume 90.4 fL (80-100); Mean Platelet Volume 9.9 fL (7.4-10.4); Monocytes # (auto) 0.39 K/uL (0.11-0.59); Monocytes % (auto) 6.9 %; Neutrophils # (auto) 3.18 K/uL (1.4-6.5); Neutrophils % (auto) 56.1 %; Platelet Count 191 K/uL (130-400); RDW Coefficient of Variation 13.6 % (11.5-14.5); RDW Standard Deviation 44.6 fL (36.4-46.3); Red Blood Count 4.18 M/uL (4.2-5.4); White Blood Count 5.66 K/uL (4.8-10.8)
[2018-08-02 12:56] LABS: Partial Thromboplastin Ratio 1.1; Prothrombin Time 10.3 Seconds (9.0-12.0)
[2018-08-02 12:57] LABS: Appearance Urine Clear (Clear); Bilirubin Urine Negative (Negative); Blood Urine Negative (Negative); Color Urine Yellow; Glucose Urine UA Negative (Negative); Ketones Urine Negative (Negative); Leukocyte Esterase Urine Negative (Negative); Nitrite Urine Negative (Negative); Protein Urine Negative (Negative); Specific Gravity Urine 1.016 (1.000-1.030); Urobilinogen Urine Negative (Negative)
[2018-08-02 14:53] LABS: BUN Creatinine Ratio 18.5 (10-20); Calcium 8.9 mg/dl (8.5-10.1); Creatinine Clr Calc Pharmacy 71.5 ml/min; Est GFR (African American) 64.3; Est GFR (Non-African American) 55.4; Potassium 4.1 mmol/L (3.5-5.1)
--- NOTE | 2018-08-25 15:39 | History & Physical Report ---
Date of Service August 25, 2018 Assessment & Plan (1) Osteoarthritis of left knee: We will proceed with a left total knee arthroplasty. Postoperatively she will be placed back on her Eliquis for DVT prophylaxis. She will be kept overnight in the hospital for postoperative medical management. She plans to use [facility] upon discharge. Present on Admission?: Yes History of Present Illness Chief Complaint: Primary osteoarthritis of the left knee Primary Care Provider: Awa Richard DO Florencia is a pleasant 63-year-old female who is been doing with chronic increasing bilateral knee pain. X-rays and clinical examination have been diagnostic for primary osteoarthritis of the left knee. She used to weigh over 400 pounds but with good diet she got her weight down significantly. She had a large pannus removed surgically back in May. She has been doing very well and is looking forward to having her left knee replaced. Allergies Allergy/AdvReac Type Severity Reaction Status Date / Time No Known Allergies Allergy Verified 07/25/18 10:22 Home Medications Home Medications Medication Instructions Recorded Confirmed Type acetaminophen [Tylenol 8 Hour] 650 mg PO Q8H PRN 10/08/17 07/25/18 History atorvastatin 20 mg PO QAM 10/08/17 07/25/18 History loratadine 10 mg PO QAM 10/08/17 07/25/18 History montelukast 10 mg PO QAM 10/08/17 07/25/18 History pantoprazole 40 mg PO QAM 10/08/17 07/25/18 History trazodone 50 mg PO HS PRN 10/08/17 07/25/18 History vwdpnggudm-gxyvoigrecrpt-ofvv 1 cap PO Q6H PRN 04/03/18 07/25/18 History calcium carbonate [Calcium 500] 500 mg PO QAM 04/03/18 07/25/18 History cyanocobalamin (vitamin B-12) 1,000 mcg PO QAM 05/11/18 07/25/18 History apixaban [Eliquis] 5 mg PO BID 06/06/18 07/25/18 History cholecalciferol (vitamin D3) 1,000 5,000 units PO QAM cap 07/13/18 07/25/18 History unit capsule ondansetron HCl 4 mg tablet 4 mg PO ONCE PRN tab 07/13/18 07/25/18 History Past Med/Surg History Medical History Insomnia (Chronic) Crohns disease (Chronic) H/o ileostomy and subsequent reversal, previously had multiple SBOs. On Humira. GERD (gastroesophageal reflux disease) (Chronic) Osteoarthritis (Chronic) Migraine (Chronic) Morbid obesity (Chronic) Hyperlipidemia (Chronic) History of esophageal disorder HAD MULTIPLE SCOPES FOUND NO OBSTRUCTIONS Hx of deep venous thrombosis CURRENTLY ON ELIQUIS Hx of pulmonary embolus Hx of small bowel obstruction Surgical History H/O colonoscopy History of bilateral tubal ligation History of colon resection 09/03/16 [facility] [place] History of esophagogastroduodenoscopy (EGD) 04/03/18 - Grade 1 View, MAC #3, ETT #7.0, HiLo Oral 10/29/17 - Grade 2 View, MAC #3, ETT #7.5, HiLo Oral History of myringotomy History of reversal of ileostomy 08/24/17 [facility] [place] History of tooth extraction Status post panniculectomy 05/18/18 - Grade 1 View, MAC #3, ETT #7.0 Social History Preferred Language: Yakut Communication Ability: Effective Visual Impairment: No Limitations Hearing Ability: Normal Beliefs That Will Affect Care: None marital status: / Current Living Situation: Alone Current Living Situation Comment: SON LIVES VERY CLOSE Feels Safe at Home: Yes Smoking Status: Former smoker Tobacco Type: cigarettes Cigarettes Per Day: Smoked off and on x 15 years. Second Hand Exposure: No Hx Alcohol Use: No Hx Substance Use: No Review of Systems All systems reviewed & are unremarkable except as noted in HPI & below Physical Exam Constitutional: WD/WN, vitals as above Eyes: PERRL, conjunctivae normal, anicteric sclerae ENMT: external ear and nose normal, oropharynx normal Neck: trachea midline, no thyromegaly Respiratory: normal respiratory effort Cardiovascular: RRR, no murmur, no edema Gastrointestinal (Abdomen): normal bowel sounds, soft, nontender, no hepatosplenomegaly Musculoskeletal: On physical examination of the left knee there is a trace effusion. There is near full range of motion and no evidence of instability. There is significant tenderness palpation along the medial and lateral joint lines and over the distal femoral condyles. Psychiatric: A+Ox3, euthymic affect Results & Data Diagnostic Findings Radiographs of the left knee demonstrate advanced osteoarthritis with joint space narrowing osteophyte formation and tlgv-rg-nsfr articulation.
[~2018-08-26 07:08] MED LIST changes: -ACET-1175 PO; +ACETAMINOPHEN 500 MG TAB PO SCH; -ADAL40KI SC; -APIX1TAB3 PO; -ATOR-22 PO; +CEFAZOLIN 3000MG 72.5 ML IV SCH; -CHOL2000 PO; -CYAN100020 PO; +FAMOTIDINE 20 MG TAB PO SCH; -LOPELIQ6 PO; +LR 500ML BOLUS, THEN 15ML/HR IV SCH; +LR 60ML/HR IV SCH; -NICO21DI35 TD; -ONDA4TAB46 PO; -PANT1TAB3 PO; -PROB1CAP93 PO; +ROPIVACAINE 0.5% HCL/PF 150 MG, BUPIVACAINE 0.5% MPF 30 ML, EPINEPHrine 30MG/30ML (OR U... INSTIL SCH; -SNG10 PO; -SUMA100T16 PO; +TRANEXAMIC ACID 1,000 MG **IV Intra-op IV SCH; -TRAZ1TAB48 PO
[2018-08-26] MEDS ORDERED: ROPIVACAINE 0.5% 5 MG/ML 30 ML VIAL ONE (07:15)
[2018-08-26] MEDS ORDERED: BUPIVACAINE 0.5 % 5 MG/1 ML PF 10ML VIAL ONE (07:15)
[2018-08-26] MEDS ORDERED: MIDAZOLAM HCL 1 MG/ML 2ML VIAL ONE (07:26)
[2018-08-26] MEDS ORDERED: fentaNYL citrate 100 MCG/2 ML VIAL ONE (07:26)
[2018-08-26] MEDS: GABAPENTIN 900 MG DOSE PO SCH ×2 (08:50→19:06)
--- NOTE | 2018-08-26 09:04 | History & Physical Bridge Note ---
Date of Service August 26, 2018 History & Physical Bridge Note I have examined the patient, reviewed the History & Physical and in the interval since the performance of the History & Physical I have noted the following changes of clinical significance: no changes noted
[2018-08-26] MEDS ORDERED: GABAPENTIN 300 MG CAP PO SCH (09:15)
[2018-08-26] MEDS ORDERED: ORTHO JOINT ANESTHETIC ONE (09:21)
[2018-08-26] MEDS ORDERED: ATROPINE SULFATE 0.1 MG/ML 10ML SYR IV PRN (10:09)
[2018-08-26] MEDS ORDERED: ePHEDrine sulfate 50 MG/ML AMP IV PRN (10:09)
[2018-08-26] MEDS: TRANEXAMIC ACID 1,000 MG **IV Pre-op IV SCH ×3 (10:12→14:24)
[2018-08-26] MEDS ORDERED: LIDOCAINE HCL 2% 2 ML VIAL/AMP(20MG/ML) INFIL ONE (10:35)
[2018-08-26] MEDS ORDERED: PROPOFOL IV EMULSION 10 MG/ML 20 ML VIAL IV ONE (10:35)
[2018-08-26] MEDS ORDERED: ONDANSETRON INJ 2 MG/ML 2 ML VIAL ONE (10:44)
--- NOTE | 2018-08-26 11:57 | Operative Report ---
Post Operative Report Pre & Post Diagnosis Operation Date: 08/26/18 09:50 Pre-Op Diagnosis: LEFT KNEE DEGENERATIVE JOINT DISEASE Post-Op Diagnosis: LEFT KNEE DEGENERATIVE JOINT DISEASE Procedure Operation Date: 08/26/18 09:50 Actual Procedures p Left Total Knee Arthroplasty(Left) - Oz Camacho DO Surgeon Oz Camacho DO Electrocardiograph Repairer Oz Nixon PAC Estimated Blood Loss 20 Findings Consistent with Post-Op Diagnosis Specimens Left femoral and tibial bone Complications none Disposition Disposition: Recovery Room Indications Florencia is a pleasant 63-year-old female who presented my office with chronic increasing left knee pain. X-rays and clinical examination were diagnostic for primary osteoarthritis of the left knee. After failing conservative treatment, she elected to proceed with a left total knee arthroplasty. Description of Procedure Implants used: I used a [employer] Vanguard total knee arthroplasty system with a size 65 femur, 67 tibia, 31 patella, and a size 10 PS polyethylene bearing. All components were cemented in place with Palacos G cement. The patient arrived [facility] for the above procedure. There were seen in the preoperative holding area and the operative extremity was identified and signed. There were given a preoperative antibiotic, a spinal anesthetic and an adductor nerve block. There were taken back to the operating room and laid on the table in supine position. There were given basic sedation. The operative knee was then prepped and draped in sterile fashion. A timeout was done, and the patient and the operative extremity was properly identified. A midline incision was made directly over the patella. Dissection was taken down to the extensor mechanism. A subvastus arthrotomy was used. The medial retinaculum was released and the fat pad was mostly left intact. The knee was flexed and the ACL, PCL, and meniscus were removed. A drill was sent down the center of the femoral canal followed by an intramedullary jayme. Off that jayme a distal femoral cutting block was placed. 9 mm was resected off the distal femur at 5 of valgus. A posterior referencing AP sizing guide was then placed on the distal femur. The femur measured to be a size 65. 2 drill holes were placed in 3 of external rotation. A 4-in-1 cutting block was then impacted into place. Anterior posterior and chamfer cuts were then made. The posterior stabilizing box guide was then impacted into place and the box was resected for the posterior stabilizing component. The proximal tibia was then exposed. A drill was sent down the center of the tibial canal followed by an intramedullary jayme. Off that jayme a proximal tibial resection guide was placed. The proximal tibia was then resected. The tibia measured to be a size 67. The tibial plate was then placed in the appropriate rotation and the tibia was punched. The posterior aspect of the knee was then opened up and any additional meniscus fragments and osteophytes were removed. Trial components were then placed. I used a size 10 PS polyethylene insert. The knee was brought through a full range of motion and felt to be stable. The patella was then everted and 8 mm was resected off the posterior aspect of the patella. The patella measured to be a size 31. 3 peg holes were then drilled. A trial patella was placed. The knee was once again brought through a full range of motion and felt to be stable. Trial components were then removed. The surrounding soft tissues were injected with 100 cc of an orthopedic pain control cocktail. All components were then cemented into place with Palacos G cement. The final polyethylene insert was then snapped into place and the anterior bar was locked. Once cement was dry the tourniquet was deflated. Hemostasis was obtained. A dilute betadyne lavage was then done for 3 minutes. The joint was then irrigated with normal saline solution. The subvastus arthrotomy was then closed with #1 Vicryl suture. The skin was closed with 2-0 Vicryl, 3-0V lock suture, and veronica. A soft compressive dressing was placed. The patient was then transferred to a hospital bed and taken to the postanesthesia care unit in stable condition. They tolerated the procedure well. I attest to the content of the Intraoperative Record and any orders documented therein. Any exceptions are noted below.
--- NOTE | 2018-08-26 12:52 | XRay Report ---
TWO VIEWS LEFT KNEE CLINICAL HISTORY: Postoperative examination. FINDINGS: AP and crosstable lateral portable views of the left knee are obtained. A left knee arthrop lasty is in near anatomic alignment. There has been undersurface remodeling of the patella. No acute fracture is seen. There are expected postoperative changes around the knee including skin clips, sof t tissue edema, and subcutaneous gas. There is atherosclerotic calcification of the popliteal artery. IMPRESSION: Expected postoperative changes status post left knee arthroplasty. No acute fracture is s een. Electronically signed by: Frank Cortez M.D. 08/26/2018 12:50 PM
--- NOTE | 2018-08-26 12:57 | Anesthesiology Progress Note ---
Date of Service August 26, 2018 Anesthesia Post Procedure Vital Signs Vital Signs: Temp Pulse Pulse Resp BP Pulse Ox 08/26/18 12:50 36.8 C 63 20 101/60 95 08/26/18 12:40 36.4 C L 61 17 94/60 L 96 08/26/18 12:30 36.4 C L 60 16 89/53 L 95 08/26/18 12:20 36.4 C L 66 16 99/59 L 95 08/26/18 08:16 36.8 C 70 20 117/66 96 Notes Mental Status: alert / awake / arousable and participated in evaluation Nausea / Vomiting: adequately controlled Pain: adequately controlled Airway Patency, RR, SpO2: stable & adequate BP & HR: stable & adequate Hydration State: stable & adequate Neuraxial Anesthesia: was administered and sensory block is resolving
--- NOTE | 2018-08-26 13:36 | Anesthesiology Progress Note ---
Date of Service August 26, 2018 Anesthesia Post Procedure Vital Signs Vital Signs: Temp Pulse Pulse Resp BP Pulse Ox 08/26/18 13:20 36.8 C 62 16 98/53 L 95 08/26/18 13:10 36.8 C 62 15 97/56 L 95 08/26/18 13:00 36.8 C 60 16 101/57 L 94 08/26/18 12:50 36.8 C 63 20 101/60 95 08/26/18 12:40 36.4 C L 61 17 94/60 L 96 08/26/18 12:30 36.4 C L 60 16 89/53 L 95 08/26/18 12:20 36.4 C L 66 16 99/59 L 95 08/26/18 08:16 36.8 C 70 20 117/66 96 Transfer of Care Handoff Completed per policy Notes Mental Status: alert / awake / arousable and participated in evaluation Patient Amnestic to Procedure: Yes Nausea / Vomiting: adequately controlled Pain: adequately controlled Airway Patency, RR, SpO2: stable & adequate BP & HR: stable & adequate Hydration State: stable & adequate Anesthetic Complications: no major complications apparent
[2018-08-26] MEDS ORDERED: BISACODYL 10 MG SUPP PR PRN (14:00)
[2018-08-26] MEDS ORDERED: ONDANSETRON INJ 2 MG/ML 2 ML VIAL IV PRN (14:00)
[2018-08-26] MEDS ORDERED: SODIUM CHLORIDE 0.9% 1000ML 1,000 ML IV SCH (14:00)
[2018-08-26] MEDS ORDERED: METOCLOPRAMIDE HCL INJ 5 MG/ML 2 ML VIAL IV PRN (14:00)
[2018-08-26] MEDS ORDERED: MAGNESIUM HYDROXIDE SUSP 30 ML UDC PO PRN (14:00)
[2018-08-26] MEDS ORDERED: HYDROmorphone INJ 0.5 MG/0.5 ML SYR IV PRN (14:00)
[2018-08-26] MEDS ORDERED: NALOXONE HCL 0.4 MG/1 ML VIAL/CARP IV PRN (14:00)
[2018-08-26] MEDS ORDERED: ONDANSETRON 4 MG TAB PO PRN (14:00)
[2018-08-26] MEDS: KETOROLAC 30 MG/ML VIAL IV SCH ×2 (14:52→21:22)
[2018-08-26] MEDS: ACETAMINOPHEN 500 MG TAB PO SCH ×2 (14:52→21:21)
[2018-08-26] MEDS: CEFAZOLIN 2000MG 2,000 MG/15 ML SYR IV SCH (18:50)
[2018-08-26] MEDS: OXYCODONE HCL IR 5 MG TAB (IMMEDIATE RELEASE) PO PRN ×2 (18:59→23:55)
[2018-08-26] MEDS: DOCUSATE SODIUM 100 MG CAP PO SCH (21:20)
[2018-08-26] MEDS: SENNA 8.6 MG TAB PO SCH (21:20)
[2018-08-27] MEDS: CEFAZOLIN 2000MG 2,000 MG/15 ML SYR IV SCH (02:27)
[2018-08-27] MEDS: KETOROLAC 30 MG/ML VIAL IV SCH ×4 (02:27→19:37)
[2018-08-27] MEDS: ACETAMINOPHEN 500 MG TAB PO SCH ×3 (05:47→20:56)
[2018-08-27] MEDS: APIXABAN 5 MG TABLET PO SCH ×2 (05:48→20:57)
[2018-08-27 06:26] LABS: Hematocrit (blood only) 35.8 % (37-47); Hemoglobin 11.9 g/dL (12.0-16.0); Mean Corpuscular Hgb Conc 33.2 g/dL (32-36); Mean Corpuscular Volume 90.9 fL (80-100); Mean Platelet Volume 9.8 fL (7.4-10.4); Platelet Count 184 K/uL (130-400); RDW Coefficient of Variation 13.4 % (11.5-14.5); RDW Standard Deviation 44.6 fL (36.4-46.3); Red Blood Count 3.94 M/uL (4.2-5.4); White Blood Count 10.02 K/uL (4.8-10.8)
[2018-08-27 07:05] LABS: BUN Creatinine Ratio 23.8 (10-20); Creatinine Clr Calc Pharmacy 54.2 ml/min; Est GFR (African American) 45.9; Est GFR (Non-African American) 39.6
[2018-08-27] MEDS: MONTELUKAST SODIUM 10 MG TABLET PO SCH (08:44)
[2018-08-27] MEDS: LORATADINE 10 MG TAB PO SCH (08:44)
[2018-08-27] MEDS: ATORVASTATIN 20 MG TAB PO SCH (08:44)
[2018-08-27] MEDS: MULTIVITAMIN TAB PO SCH (08:44)
[2018-08-27] MEDS: PANTOprazole 40 MG TAB PO SCH (08:44)
[2018-08-27] MEDS: DOCUSATE SODIUM 100 MG CAP PO SCH ×2 (08:44→20:56)
[2018-08-27] MEDS ORDERED: FLUCONAZOLE 100 MG TAB PO ONE (09:06)
--- NOTE | 2018-08-27 09:10 | Orthopedic Progress Note ---
Date of Service August 27, 2018 Assessment & Plan (1) Osteoarthritis of left knee: Overall Florencia is doing very well. She is having too much pain in the left knee. She will be seen by physical therapy today for ambulation and range of motion exercises. We will keep her in the hospital today and discharge her to home tomorrow. I did start her on some Diflucan for a yeast infection and we will also start her on some Kaopectate due to some diarrhea. She is on aspirin for DVT prophylaxis. Present on Admission?: Yes Subjective Florencia was seen and examined at bedside this morning. Overall she is doing fairly well. She not having too much pain in her left knee. She is happy with her progress to this point. She was able to get some sleep last night. She has no complaints. Physical Exam Musculoskeletal: On physical examination of the left knee, the dressing is clean and dry. She is sitting with her knee flexed at about 80 degrees. She is neurovascular intact. Results & Data Vital Signs (Past 12 Hours) Vital Signs Temp Pulse Pulse Resp BP BP Pulse Ox 08/27/18 07:57 36.8 C 58 L 18 111/69 96 08/27/18 02:17 36.5 C 57 L 16 103/63 95 08/26/18 23:57 36.6 C 63 16 111/70 96 Laboratory Results H & H 08/02/18 08/27/18 Range/Units 12:07 06:10 Hgb 12.9 11.9 L (12.0-16.0) g/dL Hct 37.8 35.8 L (37-47) % Coagulation 08/02/18 Range/Units 12:07 INR 1.0 (0.9-1.1) Diagnostic Findings Postoperative x-rays of the left knee show the prosthesis to be in anatomic alignment without any evidence of fracture, dislocation, or loosening.
[2018-08-27] MEDS: BISMUTH SUBSALICYLATE LIQD 236 ML PO PRN ×2 (09:56→16:45)
--- NOTE | 2018-08-27 10:35 | Anesthesiology Progress Note ---
Date of Service August 27, 2018 Anesthesia Post Procedure Vital Signs Vital Signs: Temp Pulse Pulse Pulse Resp BP BP 08/27/18 07:57 36.8 C 58 L 18 111/69 08/27/18 02:17 36.5 C 57 L 16 103/63 08/26/18 23:57 36.6 C 63 16 111/70 08/26/18 19:14 36.4 C L 63 16 117/75 08/26/18 16:33 36.5 C 70 16 104/66 08/26/18 15:28 36.3 C L 59 L 16 113/71 08/26/18 14:55 36.6 C 67 16 113/71 08/26/18 14:26 36.4 C L 57 L 16 113/70 08/26/18 14:00 36.5 C 59 L 16 108/67 08/26/18 13:33 36.6 C 67 16 116/64 08/26/18 13:20 36.8 C 62 16 98/53 L 08/26/18 13:10 36.8 C 62 15 97/56 L 08/26/18 13:00 36.8 C 60 16 101/57 L 08/26/18 12:50 36.8 C 63 20 101/60 08/26/18 12:40 36.4 C L 61 17 94/60 L 08/26/18 12:30 36.4 C L 60 16 89/53 L 08/26/18 12:20 36.4 C L 66 16 99/59 L Pulse Ox 08/27/18 07:57 96 08/27/18 02:17 95 08/26/18 23:57 96 08/26/18 19:14 95 08/26/18 16:33 96 08/26/18 15:28 96 08/26/18 14:55 96 08/26/18 14:26 96 08/26/18 14:00 97 08/26/18 13:33 97 08/26/18 13:20 95 08/26/18 13:10 95 08/26/18 13:00 94 08/26/18 12:50 95 08/26/18 12:40 96 08/26/18 12:30 95 08/26/18 12:20 95 Pain Intensity Left Lower Knee: Pain Intensity: 7 Transfer of Care Handoff Completed per policy Notes Mental Status: alert / awake / arousable and participated in evaluation Patient Amnestic to Procedure: Yes Nausea / Vomiting: adequately controlled Pain: adequately controlled Airway Patency, RR, SpO2: stable & adequate BP & HR: stable & adequate Hydration State: stable & adequate Anesthetic Complications: no major complications apparent
[2018-08-27] MEDS: OXYCODONE HCL IR 5 MG TAB (IMMEDIATE RELEASE) PO PRN (16:44)
[2018-08-27] MEDS: SENNA 8.6 MG TAB PO SCH (20:56)
[2018-08-28] MEDS: KETOROLAC 30 MG/ML VIAL IV SCH ×2 (01:24→07:39)
[2018-08-28] MEDS: ACETAMINOPHEN 500 MG TAB PO SCH (05:29)
--- NOTE | 2018-08-28 07:23 | Orthopedic Progress Note ---
Date of Service August 28, 2018 Assessment & Plan (1) Osteoarthritis of left knee: Overall she is doing very well. She is not having much pain in the left knee. She is been working well with physical therapy. She is on Eliquis for DVT prophylaxis. She can be discharged home later this [facility] with [facility]. She will follow-up with orthopedics in 2 weeks. Present on Admission?: Yes Subjective Florencia was seen and examined at bedside this morning. Overall she is doing well. She is not having much pain in the left knee. She is been ambulate well with physical therapy. She has no complaints. Physical Exam Musculoskeletal: On physical examination of the left knee, the incision is healing nicely. The dressing has been changed. Her MINH hose stockings in place. She is sitting in chair with her knee flexed at 90 degrees. She is active range of motion of her left ankle. Results & Data Vital Signs (Past 12 Hours) Vital Signs Temp Pulse Resp BP Pulse Ox 08/28/18 07:06 36.5 C 66 17 122/77 98 08/27/18 22:55 36.5 C 60 16 102/67 98 08/27/18 19:48 36.7 C 61 18 111/71 97
--- NOTE | 2018-08-28 07:26 | Discharge Summary ---
Date of Service August 28, 2018 Admission HPI Per Admitting Provider Florencia is a pleasant 63-year-old female who is been doing with chronic increasing bilateral knee pain. X-rays and clinical examination have been diagnostic for primary osteoarthritis of the left knee. She used to weigh over 400 pounds but with good diet she got her weight down significantly. She had a large pannus removed surgically back in May. She has been doing very well and is looking forward to having her left knee replaced. Specialty Data Orthopedic H & H 08/02/18 08/27/18 Range/Units 12:07 06:10 Hgb 12.9 11.9 L (12.0-16.0) g/dL Hct 37.8 35.8 L (37-47) % Coagulation 08/02/18 Range/Units 12:07 INR 1.0 (0.9-1.1) Discharge Data Consultations 08/26/18 14:00 Consult Case Management - Discharge Planning Routine Procedures Performed Operation Date: 08/26/18 09:50 Actual Procedures p Left Total Knee Arthroplasty(Left) - Oz Camacho DO Hospital Course (1) Osteoarthritis of left knee: On August 26 Florencia arrived at [facility] in the hospital and underwent a left total knee arthroplasty without complication. She had a spinal anesthetic and a left adductor nerve block. Postoperatively she was started back on her Eliquis for DVT prophylaxis and discharged to general orthopedic floors. Her hospital course was uneventful. On postop day #1 her H&H was stable and her pain was well controlled. She was able to ambulate well with physical therapy. On postop day #2 the dressing was changed. She continued to do well. She saw therapy 1 more time. She was then discharged home. She will get [facility] at home. She will follow-up with orthopedics in 2 weeks. Discharge Instructions Home Medications Medication Instructions Recorded Confirmed acetaminophen [Tylenol 8 Hour] 650 mg PO Q8H PRN 10/08/17 08/26/18 atorvastatin 20 mg PO QAM 10/08/17 08/26/18 loratadine 10 mg PO QAM 10/08/17 08/26/18 montelukast 10 mg PO QAM 10/08/17 08/26/18 pantoprazole 40 mg PO QAM 10/08/17 08/26/18 trazodone 50 mg PO HS PRN 10/08/17 07/25/18 iedwwyncro-larzudnxnrabi-dsxa 1 cap PO Q6H PRN 04/03/18 07/25/18 calcium carbonate [Calcium 500] 500 mg PO QAM 04/03/18 08/26/18 cyanocobalamin (vitamin B-12) 1,000 mcg PO QAM 05/11/18 08/26/18 apixaban [Eliquis] 5 mg PO BID 06/06/18 08/26/18 cholecalciferol (vitamin D3) 1,000 5,000 units PO QAM cap 07/13/18 08/26/18 unit capsule ondansetron HCl 4 mg tablet 4 mg PO ONCE PRN tab 07/13/18 08/26/18 adalimumab [Humira] 40 mg SUBCUT UD 08/26/18 08/26/18 Previous Rx's Medication Instructions Recorded oxycodone 5 - 10 mg PO Q4H PRN #30 tab 08/28/18
[2018-08-28] MEDS: LORATADINE 10 MG TAB PO SCH (09:27)
[2018-08-28] MEDS: DOCUSATE SODIUM 100 MG CAP PO SCH (09:27)
[2018-08-28] MEDS: MULTIVITAMIN TAB PO SCH (09:28)
[2018-08-28] MEDS: ATORVASTATIN 20 MG TAB PO SCH (09:28)
[2018-08-28] MEDS: PANTOprazole 40 MG TAB PO SCH (09:28)
[2018-08-28] MEDS: MONTELUKAST SODIUM 10 MG TABLET PO SCH (09:28)
[2018-08-28] MEDS: APIXABAN 5 MG TABLET PO SCH (09:28)
[2018-08-28] MEDS: OXYCODONE HCL IR 5 MG TAB (IMMEDIATE RELEASE) PO PRN (10:24)
[2018-09-08] MEDS ORDERED: NON-FORMULARY MEDICATION (Adalimumab [Humira] 40 MG) SQ SCH (07:00)
== END 2018-08-28 11:27 | disposition home health service (06) | DRG 470 ==
LOC: ASU 07:08 → 3E 12:29

== ENCOUNTER 2018-10-16 11:26 | Observation (INO) ==
[2018-10-16 12:20] LABS: Basophils # (auto) 0.03 K/uL (0-0.2); Basophils % (auto) 0.4 %; Eosinophils # (auto) 0.13 K/uL (0-0.5); Eosinophils % (auto) 1.8 %; Hematocrit (blood only) 39.8 % (37-47); Hemoglobin 13.4 g/dL (12.0-16.0); Immature Granulocytes # (auto) 0.02 K/uL (0.00-0.02); Immature Granulocytes % (auto) 0.3 %; Lymphocytes % (auto) 42.8 %; Mean Corpuscular Hemoglobin 30.5 pg (25-34); Mean Corpuscular Hgb Conc 33.7 g/dL (32-36); Mean Corpuscular Volume 90.5 fL (80-100); Mean Platelet Volume 9.6 fL (7.4-10.4); Monocytes # (auto) 0.52 K/uL (0.11-0.59); Monocytes % (auto) 7.2 %; Neutrophils # (auto) 3.44 K/uL (1.4-6.5); Neutrophils % (auto) 47.5 %; Platelet Count 240 K/uL (130-400); RDW Coefficient of Variation 14.6 % (11.5-14.5); White Blood Count 7.24 K/uL (4.8-10.8)
[2018-10-16 12:32] LABS: BUN Creatinine Ratio 20.2 (10-20); Blood Urea Nitrogen 21 mg/dl (7-18); Calcium 8.9 mg/dl (8.5-10.1); Carbon Dioxide 24 mmol/L (21-32); Chloride 107 mmol/L (98-107); Creatinine Clr Calc Pharmacy 70.3 ml/min; Est GFR (African American) 64.3; Est GFR (Non-African American) 55.4; Glucose 97 mg/dl (70-99); Lipase 129 U/L (73-393); Potassium 3.5 mmol/L (3.5-5.1); Sodium 141 mmol/L (136-145)
[2018-10-16 12:37] LABS: Troponin I < 0.015 ng/ml (0-0.045)
--- NOTE | 2018-10-16 13:22 | XRay Report ---
TWO VIEW CHEST CLINICAL HISTORY: Atypical chest pain. FINDINGS: PA and lateral chest radiographs are compared to study dated 12/31/2017. Correlation is mad e with chest CT dated 08/16/2016. The cardiomediastinal silhouette is unremarkable noting atherosclerot ic calcification of the thoracic aorta. Chronic interstitial thickening is similar to previous. The lungs and pleural spaces are clear. There is no pneumothorax. The skeletal structures are osteopenic. The bony thorax appears intact. Degenerative changes noted throughout the thoracic spine. IMPRESSION: No active disease in the chest. Electronically signed by: Frank Cortez M.D. 10/16/2018 1:21 PM
--- NOTE | 2018-10-16 15:35 | Emergency Department Note ---
Entered by Jamilah Sinclair acting as a scribe for History of Present Illness General Chief complaint: Respiratory Problems Time Seen by Provider: 10/16/18 11:59 Source: patient History of Present Illness Onset (ago): day(s) 2 Location: chest Pain Consistency: + other (persistent) Maximum Pain Intensity: 1 Quality: + other (respiratory issues) Associated symptoms: + denies other symptoms (fevers, vomiting, diarrhea, blood in sputum) and + other (mild nausea, mild headache, lightheadedness, chest pain, green sputum production) The patient is a 63 year old female that is presenting to the Emergency Room with complaints of persistent respiratory difficulties that worsened over the past 2 days. The patient reports that she has some associated chest pain and green sputum production. She denies any blood in her sputum. She denies any fevers, vomiting, or diarrhea. She notes some mild nausea. She reports that she feels light-headed with a mild headache. She notes that she feels like there is sunburn on her face. The patient states that her chest pain difficulty breathing are exacerbated by exertion such as walking up the stairs. The patient reports that she takes Elliquis due to a history of 7 blood clots in the past. She denies missing any doses recently. She notes that she had surgery on her right knee 7 weeks ago and a skin removal surgery in 05/2018. She states that she is followed by Dr. Martinez for Pulmonology. Home Medications Home Medications Medication Instructions Recorded Confirmed Type montelukast 10 mg PO QAM 10/08/17 10/16/18 History trazodone 50 mg PO HS PRN 10/08/17 10/16/18 History stftkrzqpm-eqtuxfuediwbj-seqz 1 cap PO Q6H PRN 04/03/18 10/16/18 History calcium carbonate [Calcium 500] 500 mg PO QAM 04/03/18 10/16/18 History cyanocobalamin (vitamin B-12) 1,000 mcg PO QAM 05/11/18 10/16/18 History cholecalciferol (vitamin D3) 1,000 5,000 units PO QAM cap 07/13/18 10/16/18 History unit capsule Humira 40 mg SUBCUT UD 08/26/18 10/16/18 History atorvastatin 20 mg tablet 20 mg PO QAM #90 tab 08/30/18 10/16/18 Rx loratadine 10 mg capsule 10 mg PO QAM #90 cap 08/30/18 10/16/18 Rx apixaban 5 mg tablet 5 mg PO BID #180 tab 09/26/18 10/16/18 Rx pantoprazole 40 mg tablet,delayed 40 mg PO QAM #90 tab 09/26/18 10/16/18 Rx release acetaminophen [Tylenol Extra 500 mg PO Q6H PRN 10/16/18 10/16/18 History Strength] ondansetron 4 mg PO Q8H PRN 10/16/18 10/16/18 History tramadol 50 mg PO Q6H PRN 10/16/18 10/16/18 History Allergies Allergy/AdvReac Type Severity Reaction Status Date / Time No Known Allergies Allergy Verified 10/16/18 12:29 Past Med/Surg History Medical History Insomnia (Chronic) Crohns disease (Chronic) H/o ileostomy and subsequent reversal, previously had multiple SBOs. On Humira. GERD (gastroesophageal reflux disease) (Chronic) Osteoarthritis (Chronic) Migraine (Chronic) Morbid obesity (Chronic) Hyperlipidemia (Chronic) History of esophageal disorder HAD MULTIPLE SCOPES FOUND NO OBSTRUCTIONS Hx of deep venous thrombosis CURRENTLY ON ELIQUIS Hx of pulmonary embolus Hx of small bowel obstruction Surgical History H/O colonoscopy History of bilateral tubal ligation History of colon resection 09/03/16 [facility] [place] History of esophagogastroduodenoscopy (EGD) 04/03/18 - Grade 1 View, MAC #3, ETT #7.0, HiLo Oral 10/29/17 - Grade 2 View, MAC #3, ETT #7.5, HiLo Oral History of myringotomy History of reversal of ileostomy 08/24/17 [facility] [place] History of tooth extraction Status post panniculectomy 05/18/18 - Grade 1 View, MAC #3, ETT #7.0 Family History Mother , [place] at 44 y/o Myocardial infarction Social History Preferred Language: Liberian Communication Ability: Effective Visual Impairment: No Limitations Hearing Ability: Normal Bulb Sorter Required: No Beliefs That Will Affect Care: None marital status: / Current Living Situation: Alone Current Living Situation Comment: SON LIVES VERY CLOSE Feels Safe at Home: Yes Smoking Status: Former smoker Tobacco Type: cigarettes ; Cigarettes Per Day: Smoked off and on x 15 years. ; Second Hand Exposure: No ; Hx Alcohol Use: No Hx Substance Use: No Review of Systems See HPI for pertinent positives & negatives. and A total of 10 systems reviewed and were otherwise negative Physical Exam Vital Signs Vital Signs - 24 hr 10/16/18 11:34 10/16/18 12:30 10/16/18 14:30 Temperature 37.0 C Temperature Source Oral Sepsis Recent Fever Within 48 Hours No Sepsis New/Unexplained Change in Mental Status No Sepsis Action Taken by Nursing No Action Required Pulse Rate 86 Pulse Rate [Apical] 63 80 Pulse Rhythm Regular Pulse Rhythm [Apical] Regular Regular Respiratory Rate 20 20 22 Respiratory Effort / Characteristics Non-Labored Spontaneous Non-Labored Spontaneous Non-Labored Spontaneous Respiratory Depth Normal Normal Normal Respiratory Pattern Regular Regular Regular Blood Pressure 140/64 Blood Pressure [Left Arm] 162/83 H 156/81 H Blood Pressure Mean 89 Blood Pressure Mean [Left Arm] 109 106 Pulse Oximetry 95 96 93 Oxygen Delivery Method Room Air Room Air Room Air GENERAL: She is oriented to person, place, and time. She appears well-developed and well-nourished. She does not appear distressed. HENT: Exam performed. - Head: Normocephalic and atraumatic. - Right Ear: External ear normal. No mastoid tenderness. - Left Ear: External ear normal. No mastoid tenderness. - Mouth/Throat: The oropharynx is clear and moist. No trismus in the jaw. No dental abscesses or uvula swelling. No oropharyngeal exudate or tonsillar abscesses. EYES: Conjunctivae and EOM are normal. Pupils are equal, round, and reactive to light. Right eye exhibits no discharge. Left eye exhibits no discharge. No scleral icterus. NECK: Normal range of motion. Neck supple. No JVD present. No spinous process tenderness present. No carotid bruit present. No rigidity. No tracheal deviation and normal range of motion present. No Brudzinski's sign and no Kernig's sign no yesenia. CV: Normal rate, regular rhythm, normal heart sounds and intact distal pulses. There is no peripheral edema. Palpable radial pulses bue. PULM/CHEST: Effort normal and breath sounds normal. No respiratory distress. No stridor. She has no wheezes. She has no rales. Chest Wall: She exhibits no tenderness. ABD: The abdomen is soft. Bowel sounds are normal. She has no distension. No mass is present. There is no tenderness. There is no rebound, no guarding, no Ruvalcaba's sign and no tenderness at McBurney's point. Rovsig negative MUSC/SKEL: Normal range of motion. There is no peripheral edema, tenderness or deformity. LYMPH: No cervical adenopathy. NEURO: She is alert and oriented to person, place, and time. She has normal strength. No cranial nerve deficit or sensory deficit. Coordination and gait normal. GCS eye subscore is 4. GCS verbal subscore is 5. GCS motor subscore is 6. cerbellar tests wnl. SKIN: Skin is warm and dry. She is not diaphoretic. Well-healed incision of left anterior knee with no erythema, discharge, or blood. PSYCH: She has a normal mood and affect. Her behavior is normal. Judgment and thought content normal. Course 1202:The patient was evaluated in room C05. A complete history and physical examination was performed. 1420: Vital signs are stable. Labs and imaging are within normal limits. Patient reports no chest pain at this time. However, she states that her chest pain and dyspnea are only bad with exertion and walking up stairs. I discussed the option of a delta troponin and outpatient treatment if delta troponin negative with cardiology as well as inpatient admission for observation for rule out ACS. The patient states she prefers inpatient observation. I discussed the patients case with NASIMA Camp, who will evaluate the patient for further management and care. Consultations Consultation #1: I discussed the patients case with NASIMA Camp, who will evaluate the patient for further management and care. Time: 14:20 Medical Decision Making Medical Records Attestation: I reviewed the patient's medical records. Home Medications Current Medication List: was personally reviewed by me Laboratory Data Attestation: I reviewed the patient's lab results. Result diagrams: 10/16/18 11:47 10/16/18 11:47 Lab Results 10/16/18 10/16/18 Range/Units 11:47 11:47 WBC 7.24 (4.8-10.8) K/uL RBC 4.40 (4.2-5.4) M/uL Hgb 13.4 (12.0-16.0) g/dL Hct 39.8 (37-47) % MCV 90.5 (80-100) fL MCH 30.5 (25-34) pg MCHC 33.7 (32-36) g/dL RDW Std Deviation 48.0 H (36.4-46.3) fL RDW Coeff of Brooke 14.6 H (11.5-14.5) % Plt Count 240 (130-400) K/uL MPV 9.6 (7.4-10.4) fL Immature Gran % (Auto) 0.3 % Neut % (Auto) 47.5 % Lymph % (Auto) 42.8 % Jones % (Auto) 7.2 % Eos % (Auto) 1.8 % Baso % (Auto) 0.4 % Immature Gran # (Auto) 0.02 (0.00-0.02) K/uL Neut # (Auto) 3.44 (1.4-6.5) K/uL Lymph # (Auto) 3.10 (1.2-3.4) K/uL Jones # (Auto) 0.52 (0.11-0.59) K/uL Eos # (Auto) 0.13 (0-0.5) K/uL Baso # (Auto) 0.03 (0-0.2) K/uL Sodium 141 (136-145) mmol/L Potassium 3.5 (3.5-5.1) mmol/L Chloride 107 (98-107) mmol/L Carbon Dioxide 24 (21-32) mmol/L Anion Gap 10.0 (3-11) BUN 21 H (7-18) mg/dl Creatinine 1.06 (0.6-1.2) mg/dl Est Cr Clr Drug Dosing 70.3 ml/min Est GFR ( Amer) 64.3 Est GFR (Non-Af Amer) 55.4 BUN/Creatinine Ratio 20.2 H (10-20) Glucose 97 (70-99) mg/dl Calcium 8.9 (8.5-10.1) mg/dl Troponin I < 0.015 (0-0.045) ng/ml Lipase 129 (73-393) U/L Imaging Data Radiologist's Impression: Radiology results as stated below per my review and the radiologist's interpretation: TWO VIEW CHEST CLINICAL HISTORY: Atypical chest pain. FINDINGS: PA and lateral chest radiographs are compared to study dated 12/31/2017. Correlation is made with chest CT dated 08/16/2016. The cardiomediastinal silhouette is unremarkable noting atherosclerotic calcification of the thoracic aorta. Chronic interstitial thickening is similar to previous. The lungs and pleural spaces are clear. There is no pneumothorax. The skeletal structures are osteopenic. The bony thorax appears intact. Degenerative changes noted throughout the thoracic spine. IMPRESSION: No active disease in the chest. Electronically signed by: Frank Cortez M.D. 10/16/2018 1:21 PM ECG Data Attestation: I personally reviewed and interpreted this ECG as follows: Indication: SOB/dyspnea Rate (beats per minute): 86 Rhythm: sinus rhythm Findings: + other (ID interval 206; QRS and QTC interval within normal limits) and + 1st degree AV block; no ST depression, no ST elevation and no acute ischemic change Blood Pressure Blood Pressure Findings: Elevated blood pressure Blood Pressure Disposition: Referred to patients primary care provider MDM Narrative Vital signs are stable. Labs and imaging are within normal limits. Patient reports no chest pain at this time. However, she states that her chest pain and dyspnea are only bad with exertion and walking up stairs. I discussed the option of a delta troponin and outpatient treatment if delta troponin negative with cardiology as well as inpatient admission for observation for rule out ACS. The patient states she prefers inpatient observation. I discussed the patients case with Dr. Garcia [facility] [place], who will evaluate the patient for further management and care. Impression & Plan Chest pain, Difficulty breathing Discharge Plan Visit Data Chief Complaint: Respiratory Problems ED Provider: Wai Meehan Discharge Problem: Chest pain, Difficulty breathing Patient Disposition: Being Evaluated by Hospitalist Forms Stand Alone Forms: My [facility] [place] [facility] [place] Prescriptions Prescriptions: No Action atorvastatin 20 mg tablet 20 mg PO QAM Qty: 90 RF: 3 loratadine 10 mg capsule 10 mg PO QAM Qty: 90 RF: 3 pantoprazole 40 mg tablet,delayed release (DR/EC) 40 mg PO QAM Qty: 90 RF: 1 Eliquis 5 mg tablet 5 mg PO BID Qty: 180 RF: 1 trazodone 50 mg Tablet 50 mg PO HS PRN (Reason: Sleep) RF: 0 montelukast 10 mg Tablet 10 mg PO QAM RF: 0 cholecalciferol (vitamin D3) [Vitamin D3] 1,000 unit capsule 5,000 units PO QAM RF: 0 calcium carbonate [Calcium 500] 500 mg calcium (1,250 mg) Tablet 500 mg PO QAM RF: 0 rhifywtbnd-tjgriuvsucsbd-ylpc 50-300-40 mg Capsule 1 cap PO Q6H PRN (Reason: Headache) RF: 0 cyanocobalamin (vitamin B-12) 1,000 mcg Tablet 1,000 mcg PO QAM RF: 0 Humira 40 mg/0.8 mL Syringe Kit 40 mg SUBCUT UD RF: 0 tramadol 50 mg tablet 50 mg PO Q6H PRN (Reason: Pain) RF: 0 acetaminophen [Tylenol Extra Strength] 500 mg Tablet 500 mg PO Q6H PRN (Reason: Pain) RF: 0 ondansetron 4 mg tablet,disintegrating 4 mg PO Q8H PRN (Reason: Nausea And Vomiting) RF: 0 Referrals Referrals: Awa Richard DO [Primary Care Provider] - Discharge Problem: Chest pain Qualifiers: Chest pain type: unspecified Qualified Code(s): R07.9 - Chest pain, unspecified The scribe's documentation has been prepared under my direction and personally reviewed by me in its entirety. I confirm that the note above accurately reflects all work, treatment, procedures, and medical decision making performed by me.
--- NOTE | 2018-10-16 16:19 | History & Physical Report ---
Date of Service October 16, 2018 Assessment & Plan (1) Chest pain: occurs on exertion and with deep breath described as a pressure sensation also with palpation most likely musculoskeletal, possible costochondritis certainly differential could be ACS, pericarditis very low suspicion for PE as she is on anticoagulation will observe on tele, cycle troponin, repeat EKG in the AM use Prednisone to treat possible inflammation see if she improves with Prednisone tomorrow AM likely d/c to home if troponin negative could consider a stress test but it would need to be dobutamine (2) Difficulty breathing: no clear etiology lungs clear on exam, normal CXR, no hypoxia associated with mild cough and chest pressure (3) Insomnia: continue Trazodone (4) Crohns disease: takes Humira outpatient every two weeks s/p bowel resection with temp ileostomy that has since been reversed moving bowels regularly (5) GERD (gastroesophageal reflux disease): Protonix daily no heartburn symptoms (6) Osteoarthritis: s/p L TKA in August plans for R TKA in near future (7) Migraine: no recent headaches (8) Hyperlipidemia: statin therapy (9) History of pulmonary embolism: continue on Eliquis 5mg BID History of Present Illness Chief Complaint: I felt short of breath this morning Primary Care Provider: Awa Richard DO Patient is 63 yo female with history of Crohn's disease, osteoarthritis, migraine headaches who presents with sudden onset of dyspnea on exertion and some chest pressure starting this morning. She said she felt well yesterday and she typically does not experience any dyspnea on exertion. She has been doing well the past few months. She underwent partial colectomy and small bowel resection due to her Crohns and then had it reversed. She has been managed on Humira and has done quite well. She had a paniculectomy with Dr. Adams and she recovered well from that as well, lost a significant amount of weight. She subsequently had her left knee replaced by Dr. Camacho in August. Recovered well, had a minor infection as the skin site but otherwise did well. She has been ambulating using a rolling walker. She was in her usual state of health until this morning. She noticed that it was more difficult to take a breath this morning. [place] a mild pressure in her chest which was a new feeling for her. She had increased pain with deep breath. She walked to her bathroom and she fe lt really winded, had to take some time to catch her breath. She admits to a mild cough this morning, clear sputum but none since that time. She has not had any other URI symptoms. She denies any trauma to her chest, no recent heavy lifting with her arms. She does not smoke. No one else sick around her. In the ED her vitals were stable and saturating in the 90's on room air. CXR was clear. EKG without ischemic change and troponin negative. She takes Eliquis diligently for h/o DVT/PE so that was not considered on the differential. Asked to observe her for her chest pain. Allergies Allergy/AdvReac Type Severity Reaction Status Date / Time No Known Allergies Allergy Verified 10/16/18 12:29 Home Medications Home Medications Medication Instructions Recorded Confirmed Type montelukast 10 mg PO QAM 10/08/17 10/16/18 History trazodone 50 mg PO HS PRN 10/08/17 10/16/18 History dihjbmvqwz-buhupuajpdjii-rvvb 1 cap PO Q6H PRN 04/03/18 10/16/18 History calcium carbonate [Calcium 500] 500 mg PO QAM 04/03/18 10/16/18 History cyanocobalamin (vitamin B-12) 1,000 mcg PO QAM 05/11/18 10/16/18 History cholecalciferol (vitamin D3) 1,000 5,000 units PO QAM cap 07/13/18 10/16/18 History unit capsule Humira 40 mg SUBCUT UD 08/26/18 10/16/18 History atorvastatin 20 mg tablet 20 mg PO QAM #90 tab 08/30/18 10/16/18 Rx loratadine 10 mg capsule 10 mg PO QAM #90 cap 08/30/18 10/16/18 Rx apixaban 5 mg tablet 5 mg PO BID #180 tab 09/26/18 10/16/18 Rx pantoprazole 40 mg tablet,delayed 40 mg PO QAM #90 tab 09/26/18 10/16/18 Rx release acetaminophen [Tylenol Extra 500 mg PO Q6H PRN 10/16/18 10/16/18 History Strength] ondansetron 4 mg PO Q8H PRN 10/16/18 10/16/18 History tramadol 50 mg PO Q6H PRN 10/16/18 10/16/18 History Past Med/Surg History Medical History Insomnia (Chronic) Crohns disease (Chronic) H/o ileostomy and subsequent reversal, previously had multiple SBOs. On Humira. GERD (gastroesophageal reflux disease) (Chronic) Osteoarthritis (Chronic) Migraine (Chronic) Morbid obesity (Chronic) Hyperlipidemia (Chronic) History of esophageal disorder HAD MULTIPLE SCOPES FOUND NO OBSTRUCTIONS Hx of deep venous thrombosis CURRENTLY ON ELIQUIS Hx of pulmonary embolus Hx of small bowel obstruction Surgical History H/O colonoscopy History of bilateral tubal ligation History of colon resection 09/03/16 [facility] [place] History of esophagogastroduodenoscopy (EGD) 04/03/18 - Grade 1 View, MAC #3, ETT #7.0, HiLo Oral 10/29/17 - Grade 2 View, MAC #3, ETT #7.5, HiLo Oral History of myringotomy History of reversal of ileostomy 08/24/17 [facility] [place] History of tooth extraction Status post panniculectomy 05/18/18 - Grade 1 View, MAC #3, ETT #7.0 Family History Mother , [place] at 44 y/o Myocardial infarction Social History Preferred Language: Welsh Communication Ability: Effective Visual Impairment: No Limitations Hearing Ability: Normal Reimbursement Director Required: No Beliefs That Will Affect Care: None marital status: / Current Living Situation: Alone Current Living Situation Comment: SON LIVES VERY CLOSE Other Information That Helps Us Care for You: No Feels Safe at Home: Yes Safety Concerns: Feels Safe At This Time Smoking Status: Former smoker Tobacco Type: cigarettes ; Cigarettes Per Day: Smoked off and on x 15 years. ; Second Hand Exposure: No ; Hx Alcohol Use: No Hx Substance Use: No Review of Systems Review of Systems: All systems reviewed & are unremarkable except as noted in HPI & below Physical Exam Constitutional: WD/WN, vitals as above + obese Eyes: PERRL, conjunctivae normal, anicteric sclerae ENMT: external ear and nose normal, oropharynx normal Neck: trachea midline, no thyromegaly Respiratory: normal respiratory effort, lungs clear to auscultation Cardiovascular: RRR, no murmur, no edema Gastrointestinal (Abdomen): normal bowel sounds, soft, nontender, no hepatosplenomegaly Musculoskeletal: no cyanosis or clubbing, extremities motor strength 5/5 Skin: no rashes, warm and dry Neurologic: patellar DTR's 2+ bilat, sensation intact and PERRL, EOMI, accommodation nl, no face palsy, no dysarthria Psychiatric: A+Ox3, euthymic affect Lymphatic: no cervical or axillary lymphadenopathy Results & Data Vital Signs (Past 12 Hours) Vital Signs Temp Pulse Pulse Resp BP BP Pulse Ox 10/16/18 16:07 79 20 123/87 95 10/16/18 14:30 80 22 156/81 H 93 10/16/18 12:30 63 20 162/83 H 96 10/16/18 11:34 37.0 C 86 20 140/64 95 Laboratory Results Laboratory Results - last 24 hr 10/16/18 10/16/18 10/16/18 11:47 11:47 11:47 WBC 7.24 RBC 4.40 Hgb 13.4 Hct 39.8 MCV 90.5 MCH 30.5 MCHC 33.7 RDW Std Deviation 48.0 H RDW Coeff of Brooke 14.6 H Plt Count 240 MPV 9.6 Immature Gran % (Auto) 0.3 Neut % (Auto) 47.5 Lymph % (Auto) 42.8 K[place]haw % (Auto) 7.2 Eos % (Auto) 1.8 Baso % (Auto) 0.4 Immature Gran # (Auto) 0.02 Neut # (Auto) 3.44 Lymph # (Auto) 3.10 [place]haw # (Auto) 0.52 Eos # (Auto) 0.13 Baso # (Auto) 0.03 Sodium 141 Potassium 3.5 Chloride 107 Carbon Dioxide 24 Anion Gap 10.0 BUN 21 H Creatinine 1.06 Est Cr Clr Drug Dosing 70.3 Est GFR ( Amer) 64.3 Est GFR (Non-Af Amer) 55.4 BUN/Creatinine Ratio 20.2 H Glucose 97 Calcium 8.9 Troponin I < 0.015 Lipase 129 Hepatitis C Ab Screen Neg 10/16/18 15:20 WBC RBC Hgb Hct MCV MCH MCHC RDW Std Deviation RDW Coeff of Brooke Plt Count MPV Immature Gran % (Auto) Neut % (Auto) Lymph % (Auto) [place]haw % (Auto) Eos % (Auto) Baso % (Auto) Immature Gran # (Auto) Neut # (Auto) Lymph # (Auto) [place]haw # (Auto) Eos # (Auto) Baso # (Auto) Sodium Potassium Chloride Carbon Dioxide Anion Gap BUN Creatinine Est Cr Clr Drug Dosing Est GFR ( Amer) Est GFR (Non-Af Amer) BUN/Creatinine Ratio Glucose Calcium Troponin I < 0.015 Lipase Hepatitis C Ab Screen Diagnostic Findings TWO VIEW CHEST CLINICAL HISTORY: Atypical chest pain. FINDINGS: PA and lateral chest radiographs are compared to study dated 12/31/2017. Correlation is made with chest CT dated 08/16/2016. The cardiomediastinal silhouette is unremarkable noting atherosclerotic calcification of the thoracic aorta. Chronic interstitial thickening is similar to previous. The lungs and pleural spaces are clear. There is no pneumothorax. The skeletal structures are osteopenic. The bony thorax appears intact. Degenerative changes noted throughout the thoracic spine. IMPRESSION: No active disease in the chest. ECG Indication: chest pain Rhythm: normal sinus Findings: no acute ischemic change Code Status & VTE Plan Code Status full code VTE Prophylaxis Plan VTE Prophylaxis will be ordered: Yes PG Care Time/CCT Total # of Minutes Spent Total Time Spent with Patient: Total time spent is greater than 50% in coordination of care (as documented) at patient's floor/unit and/or counseling patient: (1) Hyperlipidemia Hyperlipidemia type: other hyperlipidemia Qualified Code(s): E78.49 - Other hyperlipidemia; E78.4 - Other hyperlipidemia (2) Chest pain Chest pain type: unspecified Qualified Code(s): R07.9 - Chest pain, unspecified
[2018-10-16] MEDS ORDERED: TRAZODONE HCL 50 MG TAB PO PRN (16:37)
[2018-10-16] MEDS ORDERED: ONDANSETRON 4 MG OD TAB PO PRN (16:37)
[2018-10-16] MEDS ORDERED: ONDANSETRON INJ 2 MG/ML 2 ML VIAL IV PRN (16:37)
[2018-10-16] MEDS ORDERED: BUTALBITAL/ACETAMIN/CAFFEINE TAB PO PRN (16:37)
[2018-10-16] MEDS: predniSONE 20 MG TAB PO SCH (17:30)
[2018-10-16] MEDS: TRAMADOL HCL 50 MG TABLET PO PRN (18:15)
[2018-10-16] MEDS: ACETAMINOPHEN 500 MG TAB PO PRN (19:13)
[2018-10-16] MEDS: APIXABAN 5 MG TABLET PO SCH (20:45)
[2018-10-16] MEDS ORDERED: MICONAZOLE NITRATE POWDER 43 GM EXT PRN (20:57)
[2018-10-17 04:22] LABS: Hematocrit (blood only) 39.9 % (37-47); Hemoglobin 13.4 g/dL (12.0-16.0); Mean Corpuscular Hgb Conc 33.6 g/dL (32-36); Mean Corpuscular Volume 89.5 fL (80-100); Mean Platelet Volume 9.3 fL (7.4-10.4); Platelet Count 248 K/uL (130-400); RDW Coefficient of Variation 14.3 % (11.5-14.5); RDW Standard Deviation 47.2 fL (36.4-46.3); Red Blood Count 4.46 M/uL (4.2-5.4); White Blood Count 6.22 K/uL (4.8-10.8)
[2018-10-17 04:47] LABS: BUN Creatinine Ratio 18.6 (10-20); Blood Urea Nitrogen 22 mg/dl (7-18); Calcium 9.1 mg/dl (8.5-10.1); Carbon Dioxide 24 mmol/L (21-32); Chloride 106 mmol/L (98-107); Creatinine Clr Calc Pharmacy 63.7 ml/min; Est GFR (Non-African American) 49.2; Glucose 147 mg/dl (70-99); Potassium 4.3 mmol/L (3.5-5.1); Sodium 141 mmol/L (136-145); Troponin I < 0.015 ng/ml (0-0.045)
[2018-10-17] MEDS: CHOLECALCIFEROL 1,000 UNITS TAB PO SCH (08:01)
[2018-10-17] MEDS: LORATADINE 10 MG TAB PO SCH (08:01)
[2018-10-17] MEDS: predniSONE 20 MG TAB PO SCH (08:01)
[2018-10-17] MEDS: APIXABAN 5 MG TABLET PO SCH ×2 (08:01→20:26)
[2018-10-17] MEDS: MONTELUKAST SODIUM 10 MG TABLET PO SCH (08:02)
[2018-10-17] MEDS: CALCIUM CARBONATE 1250MG TAB PO SCH (08:02)
[2018-10-17] MEDS: PANTOprazole 40 MG TAB PO SCH (08:02)
[2018-10-17] MEDS: CYANOCOBALAMIN 500 MCG TABLET (VITAMIN B-12) PO SCH (08:02)
[2018-10-17] MEDS: ATORVASTATIN 20 MG TAB PO SCH (08:02)
[2018-10-17] MEDS: TRAMADOL HCL 50 MG TABLET PO PRN ×2 (08:07→20:27)
[2018-10-17] MEDS: ACETAMINOPHEN 500 MG TAB PO PRN ×2 (08:08→21:29)
[2018-10-17] MEDS ORDERED: OPTIRAY 320 125ml IV PRN (12:16)
--- NOTE | 2018-10-17 12:35 | CT Scan Report ---
CT ANGIOGRAPHY OF THE CHEST, PULMONARY EMBOLUS PROTOCOL CLINICAL HISTORY: h/o prior PE; multiple surgeries; dyspnea COMPARISON STUDY: Chest CT August 26, 2016. Chest radiograph October 16, 2018. TECHNIQUE: Following IV administration of 120 mL of Optiray-320, helical axial images of the chest we re obtained utilizing the pulmonary embolus protocol. Maximal intensity projections and sagittal and coronal reformats were viewed on an independent 3D workstation. IV contrast was administered withou t complication. Automated exposure control was utilized for the study. A dose lowering technique wa s utilized adhering to the principles of ALARA. CT DOSE: 559.46 mGycm FINDINGS: No pulmonary emboli are identified although the segmental and subsegmental pulmonary arter ies within the lower lobes are suboptimally assessed due to artifact. The heart is mildly enlarged. M oderate coronary artery calcification is noted. There is no thoracic aortic dissection. No thoracic l ymphadenopathy is present. Lungs are suboptimally assessed due to respiratory motion but there is no consolidation. No suspicious pulmonary nodules are noted. No pneumothorax or pleural effusion is note d. Bony thorax and upper abdomen are unremarkable. IMPRESSION: 1. No pulmonary emboli identified although segmental and subsegmental pulmonary arteries within the l ower lobes suboptimally assessed due to respiratory motion. 2. Mild cardiomegaly. Moderate coronary artery calcification. 3. No acute intrathoracic findings. Electronically signed by: Teddy Burger M.D. 10/17/2018 12:34 PM
[2018-10-17] MEDS ORDERED: METOPROLOL TARTRATE 1 MG/ML VIAL IV ONE ×2 (13:53)
[2018-10-17] MEDS ORDERED: ATROPINE SULFATE 0.1 MG/ML 10ML SYR IV ONE (13:53)
[2018-10-17] MEDS ORDERED: DOBUTamine HCL 12.5 MG/ML 20 ML VIAL IV ONE (13:53)
[2018-10-17] MEDS ORDERED: PERFLUTREN LIPID MICROSPHERE (DEFINITY) IV ONE (14:32)
--- NOTE | 2018-10-17 20:03 | Hospitalist Progress Note ---
Date of Service October 17, 2018 Assessment & Plan (1) Chest pain: reproducibility on exam suggests costochondritis/musculoskeletal etiology. however this should not cause FERGUSON. work-up to date -- troponins x 4, EKGs, tele, cxr, etc -- all negative/normal. in light of stretches of being off eliquis I checked CTA chest -- this was negative for PE. also negative for pneumonia, edema, etc. coronary artery calcifications were seen however. thus, elected to pursue dobutamine stress echo. this was negative for ischemia. following the stress test she had two 5-minute episodes of chest pain just inferior to the left breast under the costal margin. this pain was also reproducible on exam (I examined her a second time later in the day following the stress test). repeat EKG post-stress test was again normal/unchanged. will continue the prednisone for possible costochondritis. monitor again overnight for any changes. hopefully d/c home in am. (2) Dyspnea on exertion: etiology uncertain. CTA chest, dobutamine stress echo, cxr, etc all wnl. costochondritis should not cause FERGUSON. she does not appear to be in decompensated CHF. no clinical evidence of acute bronchitis. will monitor for now. (3) History of pulmonary embolism: cont eliquis BID CTA chest neg for PE today (4) Crohns disease: no flares at this time (5) Morbid obesity: BMI 42 hopefully with improved mobility s/p left TKR (and ultimately right TKR) she can lose weight Subjective telemetry overnight wnl. patient states she continues with FERGUSON but none at rest. no orthopnea, PND. had cough at one point - none today. mild sternal chest pressure sensation -- no radiation to neck, arms, jaw or back. patient reports having been off her eliquis for about a month when she had abdominal surgery earlier this spring, and then was off for several days around the time of her left TKR. +family history of CAD - mother only; multiple siblings without known CAD. Review of Systems Constitutional: no fever and no anorexia Respiratory: no wheezing Cardiovascular: as per Subjective / HPI; no orthopnea, no paroxysmal nocturnal dyspnea and no edema Gastrointestinal: no abdominal pain, no nausea and no vomiting Physical Exam Constitutional: well developed, well nourished and + morbidly obese; no acute distress ENMT: external ear and nose normal, oropharynx normal Respiratory: normal respiratory effort, lungs clear to auscultation Cardiovascular: Rate/Rhythm: regular rate and regular rhythm Heart Sounds: normal S1 and normal S2; no murmur Vessels: posterior tibial pulses present and dorsalis pedis pulses present; no JVD Extremities: no edema Chest (Breasts): Additional Comments: reproducible chest wall tenderness to palpation b/l sternal-costal margins Gastrointestinal (Abdomen): normal bowel sounds, soft, nontender, no hepatosplenomegaly Skin: no rashes, warm and dry Psychiatric: A+Ox3, euthymic affect Results & Data Vital Signs (Past 12 Hours) Vital Signs Temp Pulse Resp BP BP Pulse Ox 10/17/18 19:26 36.7 C 84 18 118/77 95 10/17/18 15:43 36.7 C 87 16 149/93 H 98 10/17/18 11:16 36.8 C 62 16 127/67 96 Laboratory Results Laboratory Results - last 24 hr 10/16/18 10/17/18 10/17/18 20:17 04:02 04:02 WBC 6.22 RBC 4.46 Hgb 13.4 Hct 39.9 MCV 89.5 MCH 30.0 MCHC 33.6 RDW Std Deviation 47.2 H RDW Coeff of Brooke 14.3 Plt Count 248 MPV 9.3 Sodium 141 Potassium 4.3 D Chloride 106 Carbon Dioxide 24 Anion Gap 11.0 BUN 22 H Creatinine 1.17 Est Cr Clr Drug Dosing 63.7 Est GFR ( Amer) 57.0 Est GFR (Non-Af Amer) 49.2 BUN/Creatinine Ratio 18.6 Glucose 147 H Calcium 9.1 Troponin I < 0.015 < 0.015 PG Care Time/CCT Total # of Minutes Spent Total Time Spent with Patient: Total time spent is greater than 50% in coordination of care (as documented) at patient's floor/unit and/or counseling patient: (1) Chest pain Chest pain type: unspecified Qualified Code(s): R07.9 - Chest pain, unspecified (2) Crohns disease Gastrointestinal tract location: unspecified location Digestive disease complication type: unspecified complication Qualified Code(s): K50.919 - Crohn's disease, unspecified, with unspecified complications
[2018-10-18 07:10] LABS: BUN Creatinine Ratio 23.2 (10-20); Calcium 8.8 mg/dl (8.5-10.1); Creatinine Clr Calc Pharmacy 68.2 ml/min; Est GFR (African American) 62.1; Est GFR (Non-African American) 53.6
[2018-10-18 08:32] LABS: Estimated Average Glucose 111 mg/dl; Hemoglobin A1C 5.5 % (4.5-5.6)
[2018-10-18] MEDS: CALCIUM CARBONATE 1250MG TAB PO SCH (09:34)
[2018-10-18] MEDS: APIXABAN 5 MG TABLET PO SCH (09:34)
[2018-10-18] MEDS: ATORVASTATIN 20 MG TAB PO SCH (09:34)
[2018-10-18] MEDS: LORATADINE 10 MG TAB PO SCH (09:34)
[2018-10-18] MEDS: CYANOCOBALAMIN 500 MCG TABLET (VITAMIN B-12) PO SCH (09:35)
[2018-10-18] MEDS: PANTOprazole 40 MG TAB PO SCH (09:35)
[2018-10-18] MEDS: predniSONE 20 MG TAB PO SCH (09:35)
[2018-10-18] MEDS: MONTELUKAST SODIUM 10 MG TABLET PO SCH (09:35)
[2018-10-18] MEDS: CHOLECALCIFEROL 1,000 UNITS TAB PO SCH (09:36)
[2018-10-18] MEDS: TRAMADOL HCL 50 MG TABLET PO PRN (09:38)
[2018-10-18] MEDS ORDERED: ALBUTEROL HFA 8 GM INHALER INH ONE (10:40)
--- NOTE | 2018-10-18 10:57 | Discharge Summary ---
Date of Service date of admission - October 16, 2018 date of discharge - October 18, 2018 Admission HPI Per Admitting Provider Patient is a 63yo female with history of Crohn's disease, osteoarthritis, migraine headaches who presents with sudden onset of dyspnea on exertion and some chest pressure starting this morning. She said she felt well yesterday and she typically does not experience any dyspnea on exertion. She has been doing well the past few months. She underwent partial colectomy and small bowel resection due to her Crohns and then had it reversed. She has been managed on Humira and has done quite well. She had a paniculectomy with Dr. Adams and she recovered well from that as well, lost a significant amount of weight. She subsequently had her left knee replaced by Dr. Camacho in August. Recovered well, had a minor infection as the skin site but otherwise did well. She has been ambulating using a rolling walker. She was in her usual state of health until this morning. She noticed that it was more difficult to take a breath this morning. [place] a mild pressure in her chest which was a new feeling for her. She had increased pain with deep breath. She walked to her bathroom and she felt really winded, had to take some time to catch her breath. She admits to a mild cough this morning, clear sputum but none since that time. She has not had any other URI symptoms. She denies any trauma to her chest, no recent heavy lifting with her arms. She does not smoke. No one else sick around her. In the ED her vitals were stable and saturating in the 90's on room air. CXR was clear. EKG without ischemic change and troponin negative. She takes Eliquis diligently for h/o DVT/PE although has been off the eliquis perioperatively for her 2 surgeries earlier this year. Principal Diagnosis dyspnea, ACS ruled out, negative stress test; acute bronchitis? Discharge Exam Constitutional well developed, well nourished and + morbidly obese; no acute distress ENMT external ear and nose normal, oropharynx normal Respiratory normal respiratory effort, lungs clear to auscultation Cardiovascular Rate/Rhythm: regular rate and regular rhythm Heart Sounds: normal S1 and normal S2; no murmur Vessels: posterior tibial pulses present and dorsalis pedis pulses present; no JVD Extremities: no edema Chest (Breasts) Additional Comments: mild tenderness to palpation over chest wall Gastrointestinal (Abdomen) normal bowel sounds, soft, nontender, no hepatosplenomegaly Skin no rashes, warm and dry Psychiatric A+Ox3, euthymic affect Discharge Data Allergies Allergy/AdvReac Type Severity Reaction Status Date / Time No Known Allergies Allergy Verified 10/21/18 07:56 Ordered Studies 1. CTA chest: IMPRESSION: 1. No pulmonary emboli identified although segmental and subsegmental pulmonary arteries within the lower lobes suboptimally assessed due to respiratory motion. 2. Mild cardiomegaly. Moderate coronary artery calcification. 3. No acute intrathoracic findings 2. Dobutamine stress echocardiogram: NO evidence of dobutamine-induced ischemia. Normal LV function. Normal valvular function. Hospital Course (1) Chest pain: Reproducibility on exam suggests costochondritis/musculoskeletal etiology. However this should not have caused FERGUSON. Troponins x 4, EKGs, telemetry, cxr, CTA chest, and dobutamine stress echocardiogram were all negative/normal. Following the stress test she had two 5-minute episodes of chest pain just inferior to the left breast under the costal margin. This pain was also reproducible on exam. Repeat EKG post-stress test was again normal/unchanged. She had received low-dose prednisone for her chest wall pain and this did seem to help her symptoms. With respect to the FERGUSON the prednisone also helped (see below). (2) Dyspnea on exertion: Exact etiology uncertain. CTA chest, dobutamine stress echo, cxr, etc all wnl. Costochondritis should not cause FERGUSON. She did not appear to be in decompensated CHF. She had no obvious wheezing or other clinical evidence of acute bronchitis. However, she did report mild sputum production. At discharge we prescribed a ventolin inhaler in the event she was developing an early bronchitis. (3) History of pulmonary embolism: cont eliquis BID. CTA chest negative for PE during this hospitalization. (4) Crohns disease: no recent flares. controlled. (5) Morbid obesity: BMI 42 Total Time Total Time Spent Total Time Spent (In Minutes): 40 Total Time Includes: Examination of the Patient, Discharge Planning, Medication Reconciliation and Communication With Other Providers Discharge Plan Discharge Items Patient Disposition: Home - Self-Care Reason For Visit: CHEST PAIN, SHORTNESS OF BREATH Activity: Resume your previous activity Activity Comment: as tolerated Non-emergency contact: Primary Care Provider Follow-up/Referrals: Awa Richard, [Primary Care Provider] - 10/21/18 8:10 am (Please, follow up at Dr. Richard's office with her associate, Walter MADDOX, on WednesdayOctober 21 at 8:10 am. *If you need to change this appointment, call the office at [phone].) Addtl Bolt Man Provider Instructions: You were admitted to the hospital with shortness of breath and chest discomforts. All the blood work for your heart was negative (no evidence of heart attack). Your CAT scan of the lungs showed NO blood clots, pneumonia, fluid, tumors, etc. It showed calcium build-up in the arteries of your heart which is a sign of "hardening of the arteries" (potential for plaque build-up in the arteries over your lifetime). You underwent a stress test and this was NORMAL with good heart function. Your oxygen levels at rest and with walking were normal. Your chest pain seemed to be from the muscles of the chest wall. We will treat this with 5 more days of prednisone. Your shortness of breath may be from bronchitis (you had cough and congestion during the stay). The prednisone may also help this. Recommendations - 1. FIVE more days of prednisone starting 10/19/18 2. albuterol (ventolin) via spacer device every 4-6 hours as needed for cough/congestion/shortness of breath 3. xivn-kua-xzaadeo mucinex up to 1200mg twice a day as needed for cough/congestion If your symptoms persist you may need additional outpatient testing (pulmonary function tests, referral to cardiology, etc). Follow-up -- see separate section Return to [facility] if -- * you have fevers over 100.5 degrees * you have worsening shortness of breath * you have worsening chest pain * any other concerns Pending Studies at Discharge: No Stand-Alone Forms: My [facility] Medications and DC Order Prescriptions: New albuterol sulfate [Ventolin HFA] 90 mcg/actuation HFA aerosol inhaler 2 puffs INH Q6H PRN (Reason: shortness of breath or wheezing or cough) Qty: 18 RF: 0 Continued atorvastatin 20 mg tablet 20 mg PO QAM Qty: 90 RF: 3 loratadine 10 mg capsule 10 mg PO QAM Qty: 90 RF: 3 pantoprazole 40 mg tablet,delayed release (DR/EC) 40 mg PO QAM Qty: 90 RF: 1 Eliquis 5 mg tablet 5 mg PO BID Qty: 180 RF: 1 ofloxacin 0.3 % drops otic (ear) PRN RF: 0 nystatin 100,000 unit/gram powder topical TID PRNRF: 0 trazodone 50 mg Tablet 50 mg PO HS PRN (Reason: Sleep) RF: 0 montelukast 10 mg Tablet 10 mg PO QAM RF: 0 cholecalciferol (vitamin D3) [Vitamin D3] 1,000 unit capsule 5,000 units PO QAM RF: 0 calcium carbonate [Calcium 500] 500 mg calcium (1,250 mg) Tablet 500 mg PO QAM RF: 0 ifbuddtnlm-bzfhxdbtusvow-odzz 50-300-40 mg Capsule 1 cap PO Q6H PRN (Reason: Headache) RF: 0 cyanocobalamin (vitamin B-12) 1,000 mcg Tablet 1,000 mcg PO QAM RF: 0 Humira 40 mg/0.8 mL Syringe Kit 40 mg SUBCUT UD RF: 0 tramadol 50 mg tablet 50 mg PO Q6H PRN (Reason: Pain) RF: 0 acetaminophen [Tylenol Extra Strength] 500 mg Tablet 500 mg PO Q6H PRN (Reason: Pain) RF: 0 ondansetron 4 mg tablet,disintegrating 4 mg PO Q8H PRN (Reason: Nausea And Vomiting) RF: 0 No Action ciclopirox 8 % solution topical PRNRF: 0 amoxicillin-pot clavulanate 875-125 mg tablet 1 tab PO BID 10 Days Qty: 20 RF: 0 Discharge Orders: Discharge Order (Routine); Ordered 10/18/18 Ordered By: Ziggy Rasheed Admission Data Admit Date/Time: 10/16/18 15:00 Attending Provider: Ziggy Rasheed Admit Provider: Juan Francisco Mason Primary Care Provider: Awa Richard Other Providers: Juan M Garcia Other Interventions: Discharge Summary Assessment (RN) Last Done: 10/18/18 11:00 DC Date/Time DO NOT enter until pt leaves facility: 10/18/18 15:00
[2018-10-18] MEDS: ACETAMINOPHEN 500 MG TAB PO PRN (13:33)
== END 2018-10-18 15:00 | disposition home or self-care (01) ==
LOC: 2N 11:26 → ED 11:26 → SUATTDRO 15:00 → 2N 16:07
DX: R06.00 Dyspnea, unspecified; Z86.711 Personal history of pulmonary embolism; Z79.899 Other long term (current) drug therapy; R07.9 Chest pain, unspecified; E66.01 Morbid (severe) obesity due to excess calories; K50.90 Crohn's disease, unspecified, without complications; Z68.41 Body mass index [BMI] 40.0-44.9, adult

== ENCOUNTER 2019-06-10 08:35 | Inpatient (IN) ==
--- NOTE | 2019-06-10 09:01 | Emergency Department Note ---
Impression & Plan SOB (shortness of breath), CHF (congestive heart failure), Right sided abdominal pain, Failure of outpatient treatment ED Provider Note NAME: JAYDON DIMAS AGE: 64 SEX: F : 1955 ARRIVES VIA: Ambulance INFORMANT: [Patient][ems, nursing, notes] ED PROVIDER(S): [Frank Allison MD] CHIEF COMPLAINT: Shortness of breath HISTORY OF PRESENT ILLNESS: The patient is a 64-year-old female who presents by EMS for shortness of breath. She notices it when she exerts herself. She has had some occasional, few seconds of chest pain. The pain comes and goes and is not really associated with her dyspnea. She feels dizzy when she stands. The patient also complains of some right lower quadrant abdominal pain in the area where she had her recent surgery. She states the pain is worse when she takes of breath or if she coughs. The pain is moderate in severity. The pain is not really present unless she moves or coughs. The patient denies any fever. She states that she recently had surgery for a bowel obstruction. She then had to go back into the hospital for fluid overload. She was discharged just 2 days ago after being diuresed. She was switched from Eliquis to Coumadin. The patient states that yesterday, she felt okay although not 100%. Today, she felt short of breath with exertion. She did not feel comfortable at home. She does live alone. She does have home health coming in daily, they were in yesterday, they have not returned to visit her yet today. REVIEW OF SYSTEMS: See HPI for pertinent positives and negatives. A total of ten systems were reviewed and were otherwise negative. PMHx/PSHx: See Below SOCIAL HISTORY: See Below. PHYSICAL EXAM: GENERAL: Patient is in no acute distress. HEENT: No acute trauma, normocephalic atraumatic, mucous membranes moist, no nasal congestion, no scleral icterus. NECK: No stridor, no adenopathy, no meningismus, trachea is midline. LUNGS: Clear to auscultation bilaterally, no wheeze, no rhonchi, breath sounds equal. HEART: Mildly tachycardic, regular rhythm, no murmurs ABDOMEN: Soft, obese, she has veronica in the right lower portion of the abdomen, no signs for wound infection clinically, she is tender in this area. The abdomen is soft and there is no peritonitis. EXTREMITIES: No cyanosis, mild bilateral pedal edema with some skin erythema and slight warmth, full range of motion of all the joints without pain or difficulty, no signs for acute trauma. NEUROLOGIC: Oriented x 3, no acute motor or sensory deficits, no focal weakness. SKIN: No rash, no jaundice, no diaphoresis. DIFFERENTIAL DIAGNOSIS: Reactive airway disease, pneumonia, pneumothorax, COPD, abdominal wall hematoma, abdominal bleeding, bowel obstruction CHF, infections, cardiac ischemia, pulmonary embolism, musculoskeletal, gastrointestinal, as well as other pathologies. EMERGENCY DEPARTMENT COURSE/PROCEDURES: ECG: Indication was shortness of breath. The EKG shows a sinus rhythm with a first-degree AV block. The rate is 86. The QTc is 445. There is no ST elevation, no PVCs. Continuous Cardiac Monitoring: An order was placed for continuous cardiac monitoring. The monitor shows a rate of 82 with sinus rhythm with a first- degree AV block. MEDICAL DECISION MAKING: There is no leukocytosis. The patient is mildly anemic. There is a slightly elevated platelet count. INR is elevated at 1.7, this is consistent with her Coumadin use. Potassium somewhat low at 3.2. No kidney failure. No evidence for liver enzyme elevation. EKG shows a sinus rhythm, no acute ischemia. Cardiac enzyme testing x1 is not consistent with acute cardiac injury. Urinalysis does not show infection or hematuria. Chest film does show some fluid overload/CHF, no pneumonia. BNP was not elevated. Abdominal and pelvis CT shows changes consistent with her recent surgery, a potential ileus was noted, there was no bowel obstruction, no significant hematoma, no abscess mentioned. The patient had a Lawson catheter placed to monitor her urine output. She was given IV Lasix 40 mg. She was given IV potassium. The patient presents with increasing shortness of breath and some lower right abdominal pain. She just left the hospital a few days ago. This is her third visit to a hospital in just a very short amount of time. She is not doing well as an outpatient. She does live alone. I did speak with case management, the patient meets criteria for a hospital stay and then eventual rehab. The patient appears to be fluid overloaded. This has been an issue for her as of late. She is not doing well as an outpatient. She is not recovering well from her recent surgery. I did speak to the patient at length, the on-call hospitalist has been consulted. Past Med/Surg History Medical History Crohns disease H/o ileostomy and subsequent reversal, previously had multiple SBOs. On Humira. Diverticulosis Environmental allergies GERD (gastroesophageal reflux disease) History of pulmonary embolism Hx of deep venous thrombosis CURRENTLY ON ELIQUIS Hx of small bowel obstruction Hyperlipidemia Insomnia Internal hemorrhoids Migraine headache Morbid obesity Osteoarthritis Surgical History H/O colonoscopy History of bilateral tubal ligation History of colon resection (09/03/16) 09/03/16 [place] History of esophagogastroduodenoscopy (EGD) 04/03/18 - Grade 1 View, MAC #3, ETT #7.0, HiLo Oral 10/29/17 - Grade 2 View, MAC #3, ETT #7.5, HiLo Oral History of myringotomy History of reversal of ileostomy 08/24/17 [place] History of tooth extraction S/P laparoscopic hernia repair (05/21/19) diag lap, [facility], Lap liver biopsy, lap assisted small bowel resection, open abd wall hernia repair S/P small bowel resection (05/21/19) S/P total knee arthroplasty (08/2018) Left Status post panniculectomy (~05/18/18) 05/18/18 - Grade 1 View, MAC #3, ETT #7.0 Family History Mother , [place] at 44 y/o Myocardial infarction Sister Breast cancer Anxiety Father Hypertension Denies family history of Ovarian cancer Prostate cancer Lung cancer Colorectal cancer Social History Preferred Language: Iranian Communication Ability: Effective Visual Impairment: No Limitations Hearing Ability: Normal Licensed Physical Therapy Assistant Required: No Beliefs That Will Affect Care: None marital status: / Current Living Situation: Alone Current Living Situation Comment: SON LIVES VERY CLOSE current occupational status: disabled Other Information That Helps Us Care for You: No Feels Safe at Home: Yes Smoking Status: Light tobacco smoker Tobacco Type: cigarettes ; Cigarettes Per Day: Smoked off and on x 15 years. ; Do You Dip or Chew Tobacco: No ; Number of Years Since Quit: 2 ; Second Hand Exposure: No ; Tobacco Cessation Education Requested by Patient: No Hx Alcohol Use: No Hx Substance Use: No Childhood Exposure to Second-Hand Smoke: No caffeine: No Dental Care, Regularly: Yes Physical Activity Frequency: 1-2 Times per Week Seatbelt Use: always Allergies Allergies Allergy/AdvReac Type Severity Reaction Status Date / Time duloxetine Allergy Nausea Verified 06/10/19 09:41 Home Meds Home Medications Medication Instructions Recorded Confirmed calcium carbonate [Calcium 500] 500 mg PO QAM 04/03/18 06/10/19 cholecalciferol (vitamin D3) 25 5,000 units PO QAM cap 07/13/18 06/10/19 mcg (1,000 unit) capsule cyanocobalamin (vitamin B-12) 100 100 mcg PO DAILY 11/13/18 06/10/19 mcg tablet montelukast 10 mg PO DAILY 11/19/18 06/10/19 warfarin 1 mg PO UD 06/10/19 06/10/19 Previous Rx's Medication Instructions Recorded atorvastatin 20 mg tablet 20 mg PO QAM #90 tab 08/30/18 loratadine 10 mg capsule 10 mg PO QAM #90 cap 08/30/18 albuterol sulfate [Ventolin HFA] 2 puffs INH Q6H PRN #18 gm 10/18/18 pantoprazole 40 mg tablet,delayed 40 mg PO QAM #90 tab 02/28/19 release adalimumab 40 mg/0.8 mL 40 mg SUBCUT UD #6 ml 04/20/19 subcutaneous syringe kit Results & Data (ED) Vital Signs Vital Signs - 24 hr 06/10/19 08:42 06/10/19 09:54 06/10/19 10:35 Temperature 36.8 C Temperature Source Oral Pulse Rate 85 Pulse Rate [Apical] 81 78 Respiratory Rate 20 16 18 Blood Pressure 144/71 H Blood Pressure [Right Arm] 135/63 129/58 L Blood Pressure Mean 95 Blood Pressure Mean [Right Arm] 87 81 Pulse Oximetry 96 96 95 Oxygen Delivery Method Room Air Room Air Room Air Sepsis Recent Fever Within 48 Hours No Sepsis New/Unexplained Change in Mental Status No Sepsis Action Taken by Nursing No Action Required 06/10/19 11:04 Temperature Temperature Source Pulse Rate Pulse Rate [Apical] Respiratory Rate Blood Pressure Blood Pressure [Right Arm] Blood Pressure Mean Blood Pressure Mean [Right Arm] Pulse Oximetry 95 Oxygen Delivery Method Room Air Sepsis Recent Fever Within 48 Hours Sepsis New/Unexplained Change in Mental Status Sepsis Action Taken by [facility] Medications Current Medication List: was personally reviewed by me Laboratory Data Attestation: I reviewed the patient's lab results. Result diagrams: 06/10/19 08:40 06/10/19 08:40 Lab Results 06/10/19 06/10/19 06/10/19 Range/Units 08:40 08:40 08:40 WBC 4.78 L (4.8-10.8) K/uL RBC 3.73 L (4.2-5.4) M/uL Hgb 11.0 L (12.0-16.0) g/dL Hct 33.9 L (37-47) % MCV 90.9 (80-100) fL MCH 29.5 (25-34) pg MCHC 32.4 (32-36) g/dL RDW Std Deviation 47.5 H (36.4-46.3) fL RDW Coeff of Brooke 14.3 (11.5-14.5) % Plt Count 416 H (130-400) K/uL MPV 9.5 (7.4-10.4) fL Immature Gran % (Auto) 1.0 % Neut % (Auto) 40.5 % Lymph % (Auto) 39.3 % [place] % (Auto) 10.9 % Eos % (Auto) 7.9 % Baso % (Auto) 0.4 % Immature Gran # (Auto) 0.05 H (0.00-0.02) K/uL Neut # (Auto) 1.93 (1.4-6.5) K/uL Lymph # (Auto) 1.88 (1.2-3.4) K/uL Upson # (Auto) 0.52 (0.11-0.59) K/uL Eos # (Auto) 0.38 (0-0.5) K/uL Baso # (Auto) 0.02 (0-0.2) K/uL PT 17.7 H (9.0-12.0) Seconds INR 1.7 H (0.9-1.1) APTT 40.5 H (21.0-31.0) Seconds PTT Ratio 1.5 Sodium 138 (136-145) mmol/L Potassium 3.2 L (3.5-5.1) mmol/L Chloride 107 (98-107) mmol/L Carbon Dioxide 22 (21-32) mmol/L Anion Gap 9.0 (3-11) BUN 11 (7-18) mg/dl Creatinine 1.06 (0.6-1.2) mg/dl Est Cr Clr Drug Dosing Not Reportable Est GFR ( Amer) 63.8 Est GFR (Non-Af Amer) 55.1 BUN/Creatinine Ratio 10.7 (10-20) Glucose 103 H (70-99) mg/dl Calcium 8.5 (8.5-10.1) mg/dl Magnesium 1.9 (1.8-2.4) mg/dl Total Bilirubin 0.4 (0.2-1) mg/dl AST 27 (15-37) U/L ALT 23 (12-78) U/L Alkaline Phosphatase 101 (45-117) U/L Troponin I < 0.015 (0-0.045) ng/ml NT-Pro-B Natriuret Pep 335 (0-900) pg/ml Total Protein 6.8 (6.4-8.2) gm/dl Albumin 2.4 L (3.4-5.0) gm/dl Globulin 4.4 H (2.5-4.0) gm/dl Albumin/Globulin Ratio 0.5 L (0.9-2) Urine Color Urine Appearance (Clear) Urine pH (4.5-7.5) Ur Specific [place] (1.000-1.030) Urine Protein (Negative) Urine Glucose (UA) (Negative) Urine Ketones (Negative) Urine Blood (Negative) Urine Nitrite (Negative) Urine Bilirubin (Negative) Urine Urobilinogen (Negative) Ur Leukocyte Esterase (Negative) 06/10/19 Range/Units 09:08 WBC (4.8-10.8) K/uL RBC (4.2-5.4) M/uL Hgb (12.0-16.0) g/dL Hct (37-47) % MCV (80-100) fL MCH (25-34) pg MCHC (32-36) g/dL RDW Std Deviation (36.4-46.3) fL RDW Coeff of Brooke (11.5-14.5) % Plt Count (130-400) K/uL MPV (7.4-10.4) fL Immature Gran % (Auto) % Neut % (Auto) % Lymph % (Auto) % Upson % (Auto) % Eos % (Auto) % Baso % (Auto) % Immature Gran # (Auto) (0.00-0.02) K/uL Neut # (Auto) (1.4-6.5) K/uL Lymph # (Auto) (1.2-3.4) K/uL [place]pson # (Auto) (0.11-0.59) K/uL Eos # (Auto) (0-0.5) K/uL Baso # (Auto) (0-0.2) K/uL PT (9.0-12.0) Seconds INR (0.9-1.1) APTT (21.0-31.0) Seconds PTT Ratio Sodium (136-145) mmol/L Potassium (3.5-5.1) mmol/L Chloride (98-107) mmol/L Carbon Dioxide (21-32) mmol/L Anion Gap (3-11) BUN (7-18) mg/dl Creatinine (0.6-1.2) mg/dl Est Cr Clr Drug Dosing Est GFR ( Amer) Est GFR (Non-Af Amer) BUN/Creatinine Ratio (10-20) Glucose (70-99) mg/dl Calcium (8.5-10.1) mg/dl Magnesium (1.8-2.4) mg/dl Total Bilirubin (0.2-1) mg/dl AST (15-37) U/L ALT (12-78) U/L Alkaline Phosphatase (45-117) U/L Troponin I (0-0.045) ng/ml NT-Pro-B Natriuret Pep (0-900) pg/ml Total Protein (6.4-8.2) gm/dl Albumin (3.4-5.0) gm/dl Globulin (2.5-4.0) gm/dl Albumin/Globulin Ratio (0.9-2) Urine Color Yellow Urine Appearance Clear (Clear) Urine pH 6.5 (4.5-7.5) Ur Specific [place] 1.007 (1.000-1.030) Urine Protein Negative (Negative) Urine Glucose (UA) Negative (Negative) Urine Ketones Negative (Negative) Urine Blood Negative (Negative) Urine Nitrite Negative (Negative) Urine Bilirubin Negative (Negative) Urine Urobilinogen Negative (Negative) Ur Leukocyte Esterase Negative (Negative) Administered Medications Discontinued Medications Furosemide (Lasix) 40 mg IV NOW STA Stop: 06/10/19 10:36 Last Admin: 06/10/19 11:02 Dose: 40 mg Documented by: [id number] Potassium Chloride (K Jerrell / Wtr) 10 meq in 100 mls @ 100 mls/hr IV ONE ONE Stop: 06/10/19 11:34 Last Infusion: 06/10/19 12:04 Dose: 0 mls/hr Documented by: [id number] Admin: 06/10/19 11:02 Dose: 100 mls/hr Documented by: [id number] Imaging Data Radiologist's Impression: XR chest 1V portable CLINICAL HISTORY: weakness COMPARISON STUDY: 10/16/2018 FINDINGS: The heart is the upper limits of normal in size. There is elevation of interstitium, likely secondary to mild congestive failure/fluid overload. Small pleural effusions are suspected. There is no lobar consolidation.[ IMPRESSION: 1. Mild elevation of the interstitium, likely secondary to mild congestive failure/fluid overload. Clinical and radiographic follow-up recommended. 2. No evidence of lobar consolidation CT SCAN OF THE ABDOMEN AND PELVIS WITHOUT CONTRAST CLINICAL HISTORY: Abdominal pain status post recent surgery. Possible hematoma. Possible obstruction. COMPARISON STUDY: September 2018 TECHNIQUE: CT scan of the abdomen and pelvis was performed from the lung bases to the proximal femurs. Images are reviewed in the axial, sagittal, and coronal planes. IV contrast was not administered for this examination. A dose lowering technique was utilized adhering to the principles of ALARA. CT DOSE: 1797.36 mGy.cm FINDINGS: Lower chest: There are basilar atelectatic changes. There are trace pleural effusions. Liver: There is hepatic steatosis. No focal masses are visualized. Gallbladder: Unremarkable. Spleen: Normal in size and attenuation. Pancreas: Unremarkable. Adrenal glands: Unremarkable. Kidneys: No renal, ureteral, or bladder calculi are visualized. Bowel: Small bowel loops are the upper limits of normal in diameter. There are scattered small bowel air-fluid levels. There are no transition zones to indicate a bowel obstruction. The findings likely represent a postsurgical ileus. There is colonic diverticulosis. There is no evidence of acute diverticulitis. Postsurgical changes are present within the bowel with pelvic suture lines. There is minimal surrounding fat stranding, likely postsurgical. There are no fluid collections to indicate an abscess. Peritoneum: There is no intraperitoneal free air or abdominal ascites. Vasculature: The abdominal aorta is normal in course and caliber. Adenopathy: None. Pelvic viscera: The uterus is surgically absent. There is an indwelling Lawson catheter. Air within the bladder is likely iatrogenic. Skeletal structures: There is infiltration of the subcutaneous soft tissues within the right anterior abdominal wall, likely postsurgical. IMPRESSION: 1. Small bowel loops at the upper limits of normal in diameter with scattered air-fluid levels. The findings likely represent a postsurgical ileus, as no discrete transition zone is visualized. 2. No evidence of free intraperitoneal air 3. Diverticulosis. No evidence of acute diverticulitis 4. Postsurgical changes within the bowel 5. Infiltration of the subcutaneous tissues and the right anterior abdominal wall likely postsurgical 6. Hepatic steatosis 7. Trace bilateral pleural effusions Blood Pressure Blood Pressure Findings: Elevated blood pressure Blood Pressure Disposition: further management by hospitalist Discharge Plan Visit Data *Final* Discharge Date/Time: 06/10/19 12:12 Chief Complaint: Shortness of Breath/Dyspnea ED Provider: Frank Allison Discharge Problem: SOB (shortness of breath), CHF (congestive heart failure), Right sided abdominal pain, Failure of outpatient treatment Patient Disposition: Admitted As Inpatient Condition: Fair Discharge Instructions Interventions: ED Discharge Assessment Last Done: 06/10/19 12:12 Discharge Problem: CHF (congestive heart failure) Qualifiers: Heart failure type: unspecified Heart failure chronicity: acute Qualified Code(s): I50.9 - Heart failure, unspecified
[2019-06-10 09:05] LABS: Basophils # (auto) 0.02 K/uL (0-0.2); Basophils % (auto) 0.4 %; Eosinophils # (auto) 0.38 K/uL (0-0.5); Eosinophils % (auto) 7.9 %; Hematocrit (blood only) 33.9 % (37-47); Immature Granulocytes # (auto) 0.05 K/uL (0.00-0.02); Lymphocytes # (auto) 1.88 K/uL (1.2-3.4); Lymphocytes % (auto) 39.3 %; Mean Corpuscular Hemoglobin 29.5 pg (25-34); Mean Corpuscular Hgb Conc 32.4 g/dL (32-36); Mean Corpuscular Volume 90.9 fL (80-100); Mean Platelet Volume 9.5 fL (7.4-10.4); Monocytes # (auto) 0.52 K/uL (0.11-0.59); Monocytes % (auto) 10.9 %; Neutrophils # (auto) 1.93 K/uL (1.4-6.5); Neutrophils % (auto) 40.5 %; Platelet Count 416 K/uL (130-400); RDW Coefficient of Variation 14.3 % (11.5-14.5); RDW Standard Deviation 47.5 fL (36.4-46.3); Red Blood Count 3.73 M/uL (4.2-5.4); White Blood Count 4.78 K/uL (4.8-10.8)
[2019-06-10 09:12] LABS: Alanine Aminotransferase 23 U/L (12-78); Albumin Level 2.4 gm/dl (3.4-5.0); Aspartate Aminotransferase 27 U/L (15-37); BUN Creatinine Ratio 10.7 (10-20); Blood Urea Nitrogen 11 mg/dl (7-18); Calcium 8.5 mg/dl (8.5-10.1); Carbon Dioxide 22 mmol/L (21-32); Chloride 107 mmol/L (98-107); Est GFR (African American) 63.8; Est GFR (Non-African American) 55.1; Glucose 103 mg/dl (70-99); Magnesium 1.9 mg/dl (1.8-2.4); Potassium 3.2 mmol/L (3.5-5.1); Sodium 138 mmol/L (136-145)
[2019-06-10 09:15] LABS: INR 1.7 (0.9-1.1); Partial Thromboplastin Ratio 1.5; Partial Thromboplastin Time 40.5 Seconds (21.0-31.0); Prothrombin Time 17.7 Seconds (9.0-12.0)
[2019-06-10 09:16] LABS: Albumin Globulin Ratio 0.5 (0.9-2); Alkaline Phosphatase 101 U/L (45-117); Bilirubin,Total 0.4 mg/dl (0.2-1); Globulin 4.4 gm/dl (2.5-4.0); NT Pro B Type Natriuretic Pept 335 pg/ml (0-900); Total Protein 6.8 gm/dl (6.4-8.2); Troponin I < 0.015 ng/ml (0-0.045)
[2019-06-10 09:24] LABS: Appearance Urine Clear (Clear); Bilirubin Urine Negative (Negative); Blood Urine Negative (Negative); Color Urine Yellow; Glucose Urine UA Negative (Negative); Ketones Urine Negative (Negative); Leukocyte Esterase Urine Negative (Negative); Nitrite Urine Negative (Negative); Protein Urine Negative (Negative); Specific Gravity Urine 1.007 (1.000-1.030); Urobilinogen Urine Negative (Negative); pH Urine 6.5 (4.5-7.5)
--- NOTE | 2019-06-10 09:56 | XRay Report ---
XR chest 1V portable CLINICAL HISTORY: weakness COMPARISON STUDY: 10/16/2018 FINDINGS: The heart is the upper limits of normal in size. There is elevation of interstitium, likely secondary to mild congestive failure/fluid overload. Small pleural effusions are suspected. There is no lobar consolidation.[ IMPRESSION: 1. Mild elevation of the interstitium, likely secondary to mild congestive failure/fluid overload. Cl inical and radiographic follow-up recommended. 2. No evidence of lobar consolidation ACT 112: Negative or not required by law. Electronically signed by: Sacha Cash M.D. 06/10/2019 9:55 AM
[2019-06-10] MEDS ORDERED: FUROSEMIDE 40 MG/4 ML VIAL IV STA (10:35)
[2019-06-10] MEDS ORDERED: POTASSIUM CHLORIDE / WTR 10 MEQ/100 ML PLCT IV ONE (10:35)
--- NOTE | 2019-06-10 10:40 | CT Scan Report ---
CT SCAN OF THE ABDOMEN AND PELVIS WITHOUT CONTRAST CLINICAL HISTORY: Abdominal pain status post recent surgery. Possible hematoma. Possible obstruction. COMPARISON STUDY: September 2018 TECHNIQUE: CT scan of the abdomen and pelvis was performed from the lung bases to the proximal femurs . Images are reviewed in the axial, sagittal, and coronal planes. IV contrast was not administered fo r this examination. A dose lowering technique was utilized adhering to the principles of ALARA. CT DOSE: 1797.36 mGy.cm FINDINGS: Lower chest: There are basilar atelectatic changes. There are trace pleural effusions. Liver: There is hepatic steatosis. No focal masses are visualized. Gallbladder: Unremarkable. Spleen: Normal in size and attenuation. Pancreas: Unremarkable. Adrenal glands: Unremarkable. Kidneys: No renal, ureteral, or bladder calculi are visualized. Bowel: Small bowel loops are the upper limits of normal in diameter. There are scattered small bowel air-fluid levels. There are no transition zones to indicate a bowel obstruction. The findings likely represent a postsurgical ileus. There is colonic diverticulosis. There is no evidence of acute divert iculitis. Postsurgical changes are present within the bowel with pelvic suture lines. There is minim al surrounding fat stranding, likely postsurgical. There are no fluid collections to indicate an absc ess. Peritoneum: There is no intraperitoneal free air or abdominal ascites. Vasculature: The abdominal aorta is normal in course and caliber. Adenopathy: None. Pelvic viscera: The uterus is surgically absent. There is an indwelling Lawson catheter. Air within th e bladder is likely iatrogenic. Skeletal structures: There is infiltration of the subcutaneous soft tissues within the right anterior abdominal wall, likely postsurgical. IMPRESSION: 1. Small bowel loops at the upper limits of normal in diameter with scattered air-fluid levels. The f indings likely represent a postsurgical ileus, as no discrete transition zone is visualized. 2. No evidence of free intraperitoneal air 3. Diverticulosis. No evidence of acute diverticulitis 4. Postsurgical changes within the bowel 5. Infiltration of the subcutaneous tissues and the right anterior abdominal wall likely postsurgical 6. Hepatic steatosis 7. Trace bilateral pleural effusions ACT 112: Negative or not required by law. Electronically signed by: Sacha Cash M.D. 06/10/2019 10:38 AM
--- NOTE | 2019-06-10 11:21 | History & Physical Report ---
Date of Service June 10, 2019 Assessment & Plan (1) Acute diastolic (congestive) heart failure: Generalized hypervolemic state with pulmonary edema on CXR and b/l lower extremity edema, unable to assess JVD with neck size. ?right heart failure from ANNAMARIA - recommend outpatient sleep study Likely some degree of hypervolemic state due to hypoalbuminemia from poor nutrition and BOOTHE. IV lasix 40mg given in ER. On no lasix at home, but developed this over the course of 2 days after discharge from [facility] having been diuresed significantly there. Likely will need lasix on discharge on this occasion. No need for BB/ACEi currently as hypervolemic state suspected to be mainly from IV fluids given during small bowel obstruction but could consider low dose BB if BP/HR able. Lawson catheter placed in ER. I suspect this can be removed tomorrow as long as she is clinically improving. Daily weight and I&Os Heart healthy, low Na diet, fluid restriction to 1500ml (2) Shortness of breath on exertion: Suspected secondary to mild CHF exacerbation as above. No hypoxia. No fever, known COVID-19 exposure (although notable recent hospital admission), no shortness of breath at rest (alternative cause for SOBOE) and although cough mentioned in the history she did not cough once while I was in the room for 40 minutes. No change in taste or smell. Very low likelihood probability of COVID- 19 therefore no need to test at this time. (3) Ileus: Start on full liquid diet, likely can advance tomorrow as tolerated as having BM and no nausea or vomiting. Low fiber diet Discussed limiting her opiate pain medication as likely she has had such a prolonged recovery due to lack of mobility and opiates. Will use acetaminophen MICHAEL (lower dose due to BOOTHE), toradol 15mg Q6H PRN (lower dose due to concurrent warfarin use), tramadol 50mg q4h PRN for pain (4) Hx of small bowel obstruction: s/p laparoscopic incarcerated hernia repair 05/20 @ [facility] [Dr Villatoro] Some veronica still left in, no surrounding cellulitis on exam or panniculitis on CT Change wound packing daily Consult wound care nurse for further management of surgical incision Consult dietary for nutrition management (5) Diarrhea: Watery stool described by patient with strong smell. Test for c. diff (6) Nonalcoholic steatohepatitis (BOOTHE): Laparoscopic liver biopsy during hernia repair on 05/20 confirmation of steoatohepatitis (7) Jaw pain: Suspect neuropathic pain after recent intubation based on history (Left V3 sided trigeminal neuralgia). Previous diagnosed with thrush but none currently on exam. Baclofen 10mg BID. Consider carbamazepine, oxcarbazepine if ongoing. No gingivitis or abscess suspected on exam but if febrile consider CT to assess for this as gum is significantly tender on palpation. (8) History of pulmonary embolism: Continue warfarin dosing (currently 2mg PO daily) INR currently low at 1.7 therefore will give additional 1mg today PTINR daily (9) GERD (gastroesophageal reflux disease): Continue pantoprazole 40mg PO daily Add Carafate 1g PO ACHS to see if it helps with her pain (10) Morbid obesity: Nutrition evaluation (11) Physical deconditioning: PT/OT evals Likely need for inpatient physical rehabilitation given failure to thrive at [facility] (12) Crohns disease: Adalimumab 40mg SQ every other week Last dose 05/11/2019. Patient will need to bring this in from home. (13) Hyperlipidemia: Continue atorvastatin 20mg PO daily (14) Environmental allergies: Continue Montelukast 10mg PO HS, loratadine 10 mg PO QAM Will prescribe albuterol PRN is she has any wheezing (15) DVT prophylaxis: INR currently subtherapeutic. Warfarin dosing as above. Admission and Anticipated Discharge Date Admission Date: 06/10/2019 History of Present Illness Chief Complaint: Shortness of breath Primary Care Provider: DO Florencia Shen Isrraelallaroscoe is a 64 year old female with recent history of small bowel obstruction and congestive diastolic heart failure who presents to the ER with shortness of breath on exertion and general fatigue. She reports not feeling ready to go home with recent discharge from [facility] on June 06. She was short of breath and lasix was discontinued on discharge after significant diuresis there. She denies any chest pain, palpitations. She notes ongoing abdominal pain around incision especially when she coughs, getting worse over the lst 2 days. Packing is being changed by home nursing. No fevers or chills. She denies any nausea or vomiting. She does not watery diarrhea with a strong odor. A lot of belching after her operations but this is improving. No heartburn. Passing gas. Recap of recent events: Admission to [facility] from May 19 to 2019 due to abdominal pain - diagnosed with incarcerated hernia and small bowel obstruction in right lower quadrant prior ileostomy site, operated on . Significant abdominal pain post operatively and by patient/family request she was transferred to [facility] on . In addition she had a fever post operatively and diagnosed with PNA treated with levaquin. No significant interventions were done at [facility] and she was transferred back to [facility] as a swing bed on . She was noted to have gained a lot of fluid weight and diuresed until Cr started to increased. She was not sent home on any lasix. The patient feels she was rushed out of hospital. Occasional cigarette smoker, 4 cigarettes a year. Quit 3 weeks ago. Despite minimal cigarette use she is requesting a nicotine patch. Updated her daughter Ignacia Harry over the phone who did not have any questions or concerns at this time Allergies Allergy/AdvReac Type Severity Reaction Status Date / Time duloxetine Allergy Nausea Verified 06/10/19 09:41 Home Medications Home Medications Medication Instructions Recorded Confirmed Type calcium carbonate [Calcium 500] 500 mg PO QAM 04/03/18 06/10/19 History cholecalciferol (vitamin D3) 25 5,000 units PO QAM cap 07/13/18 06/10/19 History mcg (1,000 unit) capsule atorvastatin 20 mg tablet 20 mg PO QAM #90 tab 08/30/18 06/10/19 Rx loratadine 10 mg capsule 10 mg PO QAM #90 cap 08/30/18 06/10/19 Rx albuterol sulfate [Ventolin HFA] 2 puffs INH Q6H PRN #18 gm 10/18/18 06/10/19 Rx cyanocobalamin (vitamin B-12) 100 100 mcg PO DAILY 11/13/18 06/10/19 History mcg tablet montelukast 10 mg PO DAILY 11/19/18 06/10/19 History pantoprazole 40 mg tablet,delayed 40 mg PO QAM #90 tab 02/28/19 06/10/19 Rx release adalimumab 40 mg/0.8 mL 40 mg SUBCUT UD #6 ml 04/20/19 06/10/19 Rx subcutaneous syringe kit warfarin 1 mg PO UD 06/10/19 06/10/19 History Past Med/Surg History Medical History Crohns disease H/o ileostomy and subsequent reversal, previously had multiple SBOs. On Humira. Diverticulosis Environmental allergies GERD (gastroesophageal reflux disease) History of pulmonary embolism Hx of deep venous thrombosis CURRENTLY ON ELIQUIS Hx of small bowel obstruction Hyperlipidemia Insomnia Internal hemorrhoids Migraine headache Morbid obesity Osteoarthritis Surgical History H/O colonoscopy History of bilateral tubal ligation History of colon resection (09/03/16) 09/03/16 [facility] History of esophagogastroduodenoscopy (EGD) 04/03/18 - Grade 1 View, MAC #3, ETT #7.0, HiLo Oral 10/29/17 - Grade 2 View, MAC #3, ETT #7.5, HiLo Oral History of myringotomy History of reversal of ileostomy 08/24/17 [facility] History of tooth extraction S/P laparoscopic hernia repair (05/21/19) diag lap, YAIR, Lap liver biopsy, lap assisted small bowel resection, open abd wall hernia repair S/P small bowel resection (05/21/19) S/P total knee arthroplasty (08/2018) Left Status post panniculectomy (~05/18/18) 05/18/18 - Grade 1 View, MAC #3, ETT #7.0 Family History Mother , [place] at 44 y/o Myocardial infarction Sister Breast cancer Anxiety Father Hypertension Denies family history of Ovarian cancer Prostate cancer Lung cancer Colorectal cancer Social History Preferred Language: Armenian Communication Ability: Effective Visual Impairment: No Limitations Hearing Ability: Normal 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 ; Do You Dip or Chew Tobacco: No ; Number of Years Since Quit: 2 ; Second Hand Exposure: No ; Tobacco Cessation Education Requested by Patient: No Hx Alcohol Use: No Hx Substance Use: No Childhood Exposure to Second-Hand Smoke: No caffeine: No Dental Care, Regularly: Yes Physical Activity Frequency: 1-2 Times per Week Seatbelt Use: always Review of Systems Review of Systems: All systems reviewed & are unremarkable except as noted in HPI & below Ear, Nose, Mouth, Throat: Jaw pain on left side both inside and out mandible since her operation. Physical Exam Constitutional: well developed and + morbidly obese; + not well nourished, no acute distress and no altered mental status Eyes: PERRL, conjunctivae normal, anicteric sclerae ENMT: external ear and nose normal, oropharynx normal Ears: no external ear abnormality Nose: no external nose abnormality Mouth: + oropharynx abnormality (pain on palpation of left lower gingiva and over mandible (inside and out)) and + dentures (upper, no lower); no tongue abnormality (patient notes bumps felt, nothing significant on exam), no TMJ abnormality, TMJ nontender and no TMJ clicking Throat: no posterior oropharynx abnormality Neck: normal visual inspection, trachea midline, + short neck and + thick neck Respiratory: normal respiratory effort and able to speak in complete sentences; no respiratory distress, no labored breathing, no retractions and does not use accessory muscles Auscultation: + diminished lung sounds (bibasal); no crackles, no rales, no rhonchi and no wheezes Cardiovascular: Rate/Rhythm: regular rate and regular rhythm Heart Sounds: no murmur Vessels: no JVD (difficult to assess given neck size) Extremities: normal capillary refill and + pedal edema (bilateral 2+ equal b/l); no calf tenderness Gastrointestinal (Abdomen): Inspection/Auscultation: normal bowel sounds and + abdominal surgical incision (few veronica left with two packing material locations, some healing present) Percussion/Palpation: + abdomen tender (all around surgical incision site but not elsewhere) and abdomen soft; no guarding and abdomen not rigid Obese abdomen without anasarca, no cellulitis surrounding surgical wound but open and healing with secondary intention in three areas with packing material Musculoskeletal: Extremities: extremities normal to inspection and + abnormal strength (generalized 4/5 strength throughout); no cyanosis and no clubbing Skin: no rashes, warm and dry (see above regarding surgical scar) Neurologic: moves all extremities and awake; no focal motor deficits and not confused Speech / Cognition: normal speech Motor/Sensory: no tremor and no pronator drift Psychiatric: A+Ox3, euthymic affect Lymphatic: no cervical or axillary lymphadenopathy Results & Data Results & Data ([facility]) Vital Signs (Past 12 Hours) Vital Signs Temp Pulse Pulse Resp BP BP Pulse Ox 06/10/19 11:04 95 06/10/19 10:35 78 18 129/58 L 95 06/10/19 09:54 81 16 135/63 96 06/10/19 08:42 36.8 C 85 20 144/71 H 96 Diagnostic Findings XR chest 1V portable IMPRESSION: 1. Mild elevation of the interstitium, likely secondary to mild congestive failure/fluid overload. Clinical and radiographic follow-up recommended. 2. No evidence of lobar consolidation CT SCAN OF THE ABDOMEN AND PELVIS WITHOUT CONTRAST IMPRESSION: 1. Small bowel loops at the upper limits of normal in diameter with scattered air-fluid levels. The findings likely represent a postsurgical ileus, as no discrete transition zone is visualized. 2. No evidence of free intraperitoneal air 3. Diverticulosis. No evidence of acute diverticulitis 4. Postsurgical changes within the bowel 5. Infiltration of the subcutaneous tissues and the right anterior abdominal wall likely postsurgical 6. Hepatic steatosis 7. Trace bilateral pleural effusions Medications Administered Lasix 40mg IV KCl 10 meq IV ECG Indication: SOB/dyspnea Rate (beats per minute): 86 Rhythm: normal sinus Findings: + 1st degree AV block Comparison ECG Date: from (10/18/2019) Change: no significant change Code Status & VTE Plan Code Status Full VTE Prophylaxis Plan VTE Prophylaxis will be ordered: Yes PG Care Time/CCT Total # of Minutes Spent Total Time Spent with Patient: Total time spent is greater than 50% in coordination of care (as documented) at patient's floor/unit and/or counseling patient: Coding Level of Care Code 80595 Initial Inpt Care Lvl 3 Diagnoses Acute diastolic (congestive) heart failure I50.31 Shortness of breath on exertion R06.02 Ileus K56.7 Hx of small bowel obstruction Z87.19 Diarrhea R19.7 Diarrhea type: unspecified type Nonalcoholic steatohepatitis (BOOTHE) K75.81 Jaw pain R68.84 History of pulmonary embolism Z86.711 GERD (gastroesophageal reflux disease) K21.9 Esophagitis presence: without esophagitis Morbid obesity E66.01 Physical deconditioning R53.81 Crohns disease K50.919 Digestive disease complication type: unspecified complication Gastrointestinal tract location: unspecified location Hyperlipidemia E78.49; E78.4 Hyperlipidemia type: other hyperlipidemia Environmental allergies Z91.09 DVT prophylaxis Z29.9 (1) Crohns disease Digestive disease complication type: unspecified complication Gastrointestinal tract location: unspecified location Qualified Code(s): K50.919 - Crohn's disease, unspecified, with unspecified complications (2) Diarrhea Diarrhea type: unspecified type Qualified Code(s): R19.7 - Diarrhea, unspecified (3) Hyperlipidemia Hyperlipidemia type: other hyperlipidemia Qualified Code(s): E78.49 - Other hyperlipidemia; E78.4 - Other hyperlipidemia (4) GERD (gastroesophageal reflux disease) Esophagitis presence: without esophagitis Qualified Code(s): K21.9 - Gastro- esophageal reflux disease without esophagitis
[2019-06-10] MEDS ORDERED: POLYETHYLENE (MIRALAX) 17 GM PACK PO PRN (12:55)
[2019-06-10] MEDS ORDERED: WARFARIN SOD 1 MG TAB PO ONE (12:55)
[2019-06-10] MEDS ORDERED: ACETAMINOPHEN 325 MG TAB PO PRN (12:55)
[2019-06-10] MEDS ORDERED: KETOROLAC TROMETHAMINE 15 MG/ML VIAL IV PRN (12:55)
[2019-06-10] MEDS ORDERED: POTASSIUM CHLORIDE 20 MEQ TABCR PO STA (12:55)
[2019-06-10] MEDS ORDERED: ONDANSETRON INJ 2 MG/ML 2 ML VIAL IV PRN (12:55)
[2019-06-10] MEDS: BACLOFEN 10 MG TAB PO SCH ×2 (13:49→20:51)
[2019-06-10] MEDS: NICOTINE 7 MG/24 HR TDSY TD SCH (14:16)
[2019-06-10] MEDS: [UNRECOGNIZED DRUG - REMARK] SCH (15:59)
[2019-06-10] MEDS: ACETAMINOPHEN 325 MG TAB PO SCH ×3 (15:59→20:45)
[2019-06-10] MEDS: SUCRALFATE 1 GM TAB PO SCH ×2 (17:25→20:50)
[2019-06-10] MEDS: MONTELUKAST SODIUM 10 MG TABLET PO SCH (20:51)
[2019-06-10] MEDS: WARFARIN SOD 2 MG TAB PO SCH (20:51)
[2019-06-11] MEDS: [UNRECOGNIZED DRUG - REMARK] SCH ×3 (00:06→16:23)
[2019-06-11 04:39] LABS: Basophils # (auto) 0.03 K/uL (0-0.2); Basophils % (auto) 0.5 %; Eosinophils # (auto) 0.61 K/uL (0-0.5); Eosinophils % (auto) 10.5 %; Hematocrit (blood only) 32.8 % (37-47); Hemoglobin 10.6 g/dL (12.0-16.0); Immature Granulocytes # (auto) 0.04 K/uL (0.00-0.02); Immature Granulocytes % (auto) 0.7 %; Lymphocytes # (auto) 2.19 K/uL (1.2-3.4); Lymphocytes % (auto) 37.6 %; Mean Corpuscular Hemoglobin 29.4 pg (25-34); Mean Corpuscular Hgb Conc 32.3 g/dL (32-36); Mean Corpuscular Volume 91.1 fL (80-100); Mean Platelet Volume 8.9 fL (7.4-10.4); Monocytes # (auto) 0.56 K/uL (0.11-0.59); Monocytes % (auto) 9.6 %; Neutrophils % (auto) 41.1 %; Platelet Count 390 K/uL (130-400); RDW Coefficient of Variation 14.3 % (11.5-14.5); RDW Standard Deviation 47.8 fL (36.4-46.3); White Blood Count 5.83 K/uL (4.8-10.8)
[2019-06-11 04:47] LABS: INR 1.9 (0.9-1.1); Prothrombin Time 19.2 Seconds (9.0-12.0)
[2019-06-11 05:01] LABS: BUN Creatinine Ratio 11.7 (10-20); Calcium 8.5 mg/dl (8.5-10.1); Creatinine Clr Calc Pharmacy 79.2 ml/min; Est GFR (Non-African American) 61.3; Potassium 3.5 mmol/L (3.5-5.1)
[2019-06-11] MEDS ORDERED: FUROSEMIDE 40 MG in SYRINGE 0 ML IV ONE (07:30)
[2019-06-11] MEDS: SUCRALFATE 1 GM TAB PO SCH ×2 (07:42→13:02)
[2019-06-11] MEDS: NICOTINE 7 MG/24 HR TDSY TD SCH (07:43)
[2019-06-11] MEDS: ACETAMINOPHEN 325 MG TAB PO SCH ×4 (07:43→20:53)
--- NOTE | 2019-06-11 08:59 | Electrocardiogram Report ---
Test Reason : Blood Pressure : / mmHG Vent. Rate : 086 BPM Atrial Rate : 086 BPM P-R Int : 214 ms QRS Dur : 086 ms QT Int : 372 ms P-R-T Axes : 048 019 025 degrees QTc Int : 445 ms Sinus rhythm with 1st degree A-V block Cannot rule out Anterior infarct , age undetermined Abnormal ECG When compared with ECG of 17-OCT-2018 17:19, No significant change was found Confirmed by Jaya Centeno ([id number]) on 06/11/2019 8:58:58 AM Referred By: REFERRED SELF Confirmed By:Jaya Centeno
[2019-06-11] MEDS ORDERED: LORATADINE 10 MG TAB PO SCH (09:00)
[2019-06-11] MEDS: POTASSIUM CHLORIDE 10 MEQ TABCR PO SCH ×2 (09:05→20:52)
[2019-06-11] MEDS: CYANOCOBALAMIN (VITAMIN B-12) 100 MCG TABLET PO SCH (09:05)
[2019-06-11] MEDS: BACLOFEN 10 MG TAB PO SCH ×3 (09:06→20:55)
[2019-06-11] MEDS: CHOLECALCIFEROL 1,000 UNITS 25 MCG TAB PO SCH (09:06)
[2019-06-11] MEDS: ATORVASTATIN 20 MG TAB PO SCH (09:06)
[2019-06-11] MEDS: PANTOprazole 40 MG TAB PO SCH (09:06)
[2019-06-11] MEDS: LORATADINE 10 MG TAB PO SCH (09:07)
[2019-06-11] MEDS: CALCIUM CARBONATE 1250MG TAB PO SCH (09:09)
[2019-06-11] MEDS ORDERED: PERFLUTREN LIPID MICROSPHERE (DEFINITY) IV ONE (10:21)
--- NOTE | 2019-06-11 10:40 | Hospitalist Progress Note ---
Date of Service June 11, 2019 Assessment & Plan (1) Acute diastolic (congestive) heart failure: Generalized hypervolemic state with pulmonary edema on CXR and b/l lower extremity edema, unable to assess JVD with neck size. ECHO on 06/10 with EF of 55%, no valve disease excellent response to Lasix with over 3 liters out since admission give an additional dose of 40mg IV today and watch response, keep balderas for now with diuresis suspected that she has a lot of extra volume on board from recent hospitalizations certainly difficult to determine what a euvolemic status would be given her body habitus would continue to diurese her and watch renal function, check BMP in the morning consult PT/OT to get her moving Daily weight and I&Os Heart healthy, low Na diet, fluid restriction to 1800ml (2) Shortness of breath on exertion: due to pulmonary edema much improved today with diuresis, no hypoxia (3) Ileus: Start on full liquid diet, advance today, she is moving her bowels Low fiber diet Discussed limiting her opiate pain medication as likely she has had such a prolonged recovery due to lack of mobility and opiates. Will use acetaminophen MICHAEL (lower dose due to BOOTHE), toradol 15mg Q6H PRN (lower dose due to concurrent warfarin use), tramadol 50mg q4h PRN for pain (4) Hx of small bowel obstruction: s/p laparoscopic incarcerated hernia repair 05/20 @ [place] [Dr Villatoro] Some veronica still left in, no surrounding cellulitis on exam or panniculitis on CT Change wound packing daily Consult wound care nurse for further management of surgical incision Consult dietary for nutrition management (5) Diarrhea: Watery stool described by patient with strong smell. *C diff negative* (6) Nonalcoholic steatohepatitis (BOOTHE): Laparoscopic liver biopsy during hernia repair on 05/20 confirmation of steoatohepatitis (7) Jaw pain: Suspect neuropathic pain after recent intubation based on history (Left V3 sided trigeminal neuralgia). Previous diagnosed with thrush but none currently on exam. Baclofen 10mg BID. Consider carbamazepine, oxcarbazepine if ongoing. No gingivitis or abscess suspected on exam but if febrile consider CT to assess for this as gum is significantly tender on palpation. no complaints of pain today (8) History of pulmonary embolism: Continue warfarin dosing (currently 2mg PO daily) INR up to 1.9 PTINR daily (9) GERD (gastroesophageal reflux disease): Continue pantoprazole 40mg PO daily (10) Morbid obesity: Nutrition evaluation (11) Physical deconditioning: PT/OT evals Likely need for inpatient physical rehabilitation given failure to thrive at home (12) Crohns disease: Adalimumab 40mg SQ every other week Last dose 05/11/2019. Patient will need to bring this in from home. (13) Hyperlipidemia: Continue atorvastatin 20mg PO daily (14) Environmental allergies: Continue Montelukast 10mg PO HS, loratadine 10 mg PO QAM Will prescribe albuterol PRN is she has any wheezing (15) DVT prophylaxis: INR currently subtherapeutic. Warfarin dosing as above. Admission and Anticipated Discharge Date Admission Date: June 10, 2019 Subjective patient made 3200cc of urine in response to Lasix 40mg IV breathing a lot better, still tough time taking a deep breath will give another dose of Lasix IV this morning difficult to gauge volume status due to body habitus discussed her recent hospitalization, surgery that was at [facility], was on 05/18/19 she says she had colon resection, primary anastamosis, hernia repair she was then transferred to [place] and then went back to [place] for swing bed stay, in all she was hospitalized for 18 days she has no known history of heart failure, seems to remember having an echo years ago, definitely nothing recent reviewed her labs, WBC normal, Hb down slightly to 10.6, INR up to 1.9, Cr 0.97 and K 3.5 C diff was negative in addition to dyspnea, she says that she was experiencing some visual hallucinations at home and frequent cramping in her hands since being home Review of Systems Review of Systems: All systems reviewed & are unremarkable except as noted in HPI & below Constitutional: + fatigue and + weakness; no fever, no chills and no sweats Respiratory: + dyspnea on exertion; no cough, no dyspnea and no wheezing Cardiovascular: + edema (trace bilaterally); no chest pain, no palpitations and no syncope Gastrointestinal: + abdominal pain and + diarrhea/loose stools; no nausea, no vomiting and no constipation Genitourinary: no dysuria Physical Exam Constitutional: well developed and + morbidly obese; no acute distress and not ill appearing Eyes: PERRL, conjunctivae normal, anicteric sclerae ENMT: external ear and nose normal, oropharynx normal Neck: trachea midline, no thyromegaly Respiratory: normal respiratory effort, lungs clear to auscultation Cardiovascular: Rate/Rhythm: regular rate and regular rhythm Heart Sounds: normal S1 and normal S2; no murmur Extremities: normal capillary refill and + edema (trace bilateral legs) Gastrointestinal (Abdomen): normal bowel sounds, soft, nontender, no hepatosplenomegaly Inspection/Auscultation: + abdominal surgical incision (dressed this morning, no pain) Musculoskeletal: no cyanosis or clubbing, extremities motor strength 5/5 Skin: no rashes, warm and dry Neurologic: patellar DTR's 2+ bilat, sensation intact and PERRL, EOMI, accommodation nl, no face palsy, no dysarthria Psychiatric: A+Ox3, euthymic affect Lymphatic: no cervical or axillary lymphadenopathy Results & Data Results & Data ([facility]) Vital Signs (Past 12 Hours) Vital Signs Temp Pulse Resp BP Pulse Ox 06/11/19 07:47 36.7 C 80 18 133/72 95 06/10/19 23:08 36.7 C 77 24 107/65 96 Laboratory Results Laboratory Results - last 24 hr 06/10/19 06/11/19 06/11/19 15:56 04:21 04:21 WBC 5.83 RBC 3.60 L Hgb 10.6 L Hct 32.8 L MCV 91.1 MCH 29.4 MCHC 32.3 RDW Std Deviation 47.8 H RDW Coeff of Brooke 14.3 Plt Count 390 MPV 8.9 Immature Gran % (Auto) 0.7 Neut % (Auto) 41.1 Lymph % (Auto) 37.6 Mercer % (Auto) 9.6 Eos % (Auto) 10.5 Baso % (Auto) 0.5 Immature Gran # (Auto) 0.04 H Neut # (Auto) 2.40 Lymph # (Auto) 2.19 Mercer # (Auto) 0.56 Eos # (Auto) 0.61 H Baso # (Auto) 0.03 PT 19.2 H INR 1.9 H Sodium Potassium Chloride Carbon Dioxide Anion Gap BUN Creatinine Est Cr Clr Drug Dosing Est GFR ( Amer) Est GFR (Non-Af Amer) BUN/Creatinine Ratio Glucose Calcium NT-Pro-B Natriuret Pep Stl C. diff Tox B Gene Negative Cdiff Gene 06/11/19 04:21 WBC RBC Hgb Hct MCV MCH MCHC RDW Std Deviation RDW Coeff of Brooke Plt Count MPV Immature Gran % (Auto) Neut % (Auto) Lymph % (Auto) Mercer % (Auto) Eos % (Auto) Baso % (Auto) Immature Gran # (Auto) Neut # (Auto) Lymph # (Auto) Mercer # (Auto) Eos # (Auto) Baso # (Auto) PT INR Sodium 140 Potassium 3.5 Chloride 109 H Carbon Dioxide 24 Anion Gap 7.0 BUN 11 Creatinine 0.97 Est Cr Clr Drug Dosing 79.2 Est GFR ( Amer) 71.0 Est GFR (Non-Af Amer) 61.3 BUN/Creatinine Ratio 11.7 Glucose 106 H Calcium 8.5 NT-Pro-B Natriuret Pep 202 Stl C. diff Tox B Gene Medications Administered Current Inpatient Medications Acetaminophen (Tylenol) 650 mg PO Q4H PRN PRN Reason: pain/fever Stop: 07/10/19 12:54 Acetaminophen (Tylenol) 650 mg PO Q4HWA [facility] Stop: 07/10/19 15:59 Last Admin: 06/11/19 07:43 Dose: 650 mg Documented by: Atorvastatin [facility]) [facility] [place]: 07/11/19 08:59 Last Admin: 06/11/19 09:06 Dose: 20 mg Documented by: Baclofen (Lioresal) 10 mg PO BID MICHAEL Stop: 07/10/19 12:59 Last Admin: 06/11/19 09:11 Dose: Not Given Documented by: Calcium Carbonate (Os-King 500) 500 [facility] Stop: 07/11/19 08:59 Last Admin: 06/11/19 09:09 Dose: 500 mg Documented by: Cyanocobalamin (Vitamin B-12) 100 mcg PO DAILY [facility] Stop: 07/11/19 08:59 Last Admin: 06/11/19 09:05 Dose: 100 mcg Documented by: Ketorolac Tromethamine (Toradol) 15 mg IV Q6H PRN PRN Reason: Pain Stop: 06/15/19 12:54 Loratadine (Claritin) [facility] Stop: 07/11/19 08:59 Last Admin: 06/11/19 09:07 Dose: 10 mg Documented by: Miscellaneous (Remove Nicoderm Patch) 1 ea N/A DAILY@0859 [facility] Stop: 07/11/19 08:58 Last Admin: 06/11/19 07:44 Dose: 1 ea Documented by: Miscellaneous (Order Awaiting Action) 1 ea N/A QS [facility] Stop: 07/10/19 15:59 Last Admin: 06/11/19 07:42 Dose: Not Given Documented by: Montelukast Sodium (Singulair) 10 mg PO [facility] Stop: 07/10/19 20:59 Last Admin: 06/10/19 20:51 Dose: 10 mg Documented by: Nicotine (Nicoderm Cq) 7 mg TD [facility] Stop: 07/10/19 13:29 Last Admin: 06/11/19 07:43 Dose: 7 mg Documented by: Ondansetron HCl (Zofran) 4 mg IV Q6H PRN PRN Reason: Nausea Stop: 07/10/19 12:54 Pantoprazole Sodium (Protonix) 40 mg PO [facility] Stop: 07/11/19 08:59 Last Admin: 06/11/19 09:06 Dose: 40 mg Documented by: Polyethylene Glycol (Miralax Powder Packet) 17 gm PO DAILY PRN PRN Reason: Constipation Stop: 07/10/19 12:54 Potassium Chloride (Klor-Con M10) 10 meq PO BID [facility] Stop: 07/11/19 08:59 Last Admin: 06/11/19 09:05 Dose: 10 meq Documented by: Sucralfate (Carafate Tab) 1 gm PO ACHS [facility] Stop: 07/10/19 16:29 Last Admin: 06/11/19 07:42 Dose: 1 gm Documented by: Tramadol HCl (Ultram) 50 mg PO Q4H PRN PRN Reason: Pain Stop: 07/10/19 12:54 Vitamin D (Vitamin D3) 5,000 units PO [facility] Stop: 07/11/19 08:59 Last Admin: 06/11/19 09:06 Dose: 5,000 units Documented by: Warfarin Sodium (Coumadin) 2 mg PO [facility] Stop: 07/10/19 20:59 Last Admin: 06/10/19 20:51 Dose: 2 mg Documented by: PG Care Time/CCT Total # of Minutes Spent Total Time Spent with Patient: Total time spent is greater than 50% in coordination of care (as documented) at patient's floor/unit and/or counseling patient: Coding Level of Care Code 74845 Subseq Hosp Care Lvl 3 Diagnoses Acute diastolic (congestive) heart failure I50.31 Shortness of breath on exertion R06.02 Ileus K56.7 Hx of small bowel obstruction Z87.19 Diarrhea R19.7 Diarrhea type: unspecified type Nonalcoholic steatohepatitis (BOOTHE) K75.81 Jaw pain R68.84 History of pulmonary embolism Z86.711 GERD (gastroesophageal reflux disease) K21.9 Esophagitis presence: without esophagitis Morbid obesity E66.01 Physical deconditioning R53.81 Crohns disease K50.919 Digestive disease complication type: unspecified complication Gastrointestinal tract location: unspecified location Hyperlipidemia E78.49; E78.4 Hyperlipidemia type: other hyperlipidemia Environmental allergies Z91.09 DVT prophylaxis Z29.9 (1) Crohns disease Digestive disease complication type: unspecified complication Gastrointestinal tract location: unspecified location Qualified Code(s): K50.919 - Crohn's disease, unspecified, with unspecified complications (2) Diarrhea Diarrhea type: unspecified type Qualified Code(s): R19.7 - Diarrhea, unspecified (3) Hyperlipidemia Hyperlipidemia type: other hyperlipidemia Qualified Code(s): E78.49 - Other hyperlipidemia; E78.4 - Other hyperlipidemia (4) GERD (gastroesophageal reflux disease) Esophagitis presence: without esophagitis Qualified Code(s): K21.9 - Gastro- esophageal reflux disease without esophagitis
--- NOTE | 2019-06-11 11:54 | XCELERA ---
[id number]
[2019-06-11] MEDS: MONTELUKAST SODIUM 10 MG TABLET PO SCH (20:53)
[2019-06-11] MEDS: WARFARIN SOD 2 MG TAB PO SCH (20:54)
[2019-06-12] MEDS: [UNRECOGNIZED DRUG - REMARK] SCH ×3 (02:26→15:29)
[2019-06-12 05:27] LABS: INR 2.3 (0.9-1.1); Prothrombin Time 22.8 Seconds (9.0-12.0)
[2019-06-12 05:36] LABS: BUN Creatinine Ratio 12.5 (10-20); Calcium 8.5 mg/dl (8.5-10.1); Creatinine Clr Calc Pharmacy 65.1 ml/min; Est GFR (Non-African American) 48.4; Potassium 3.5 mmol/L (3.5-5.1)
[2019-06-12] MEDS: LORATADINE 10 MG TAB PO SCH (08:54)
[2019-06-12] MEDS: ACETAMINOPHEN 325 MG TAB PO SCH ×4 (08:54→20:24)
[2019-06-12] MEDS: BACLOFEN 10 MG TAB PO SCH ×2 (08:55→20:27)
[2019-06-12] MEDS: PANTOprazole 40 MG TAB PO SCH (08:55)
[2019-06-12] MEDS: CHOLECALCIFEROL 1,000 UNITS 25 MCG TAB PO SCH (08:55)
[2019-06-12] MEDS: ATORVASTATIN 20 MG TAB PO SCH (08:55)
[2019-06-12] MEDS: POTASSIUM CHLORIDE 10 MEQ TABCR PO SCH ×2 (08:55→20:26)
[2019-06-12] MEDS: CYANOCOBALAMIN (VITAMIN B-12) 100 MCG TABLET PO SCH (08:55)
[2019-06-12] MEDS: CALCIUM CARBONATE 1250MG TAB PO SCH (08:56)
[2019-06-12] MEDS: NICOTINE 7 MG/24 HR TDSY TD SCH (08:56)
[2019-06-12] MEDS ORDERED: FUROSEMIDE 40 MG in SYRINGE 0 ML IV SCH (09:00)
[2019-06-12] MEDS: TRAMADOL HCL 50 MG TABLET PO PRN ×3 (10:14→23:40)
--- NOTE | 2019-06-12 12:44 | Hospitalist Progress Note ---
Date of Service June 12, 2019 Assessment & Plan (1) Acute diastolic (congestive) heart failure: Generalized hypervolemic state with pulmonary edema on CXR and b/l lower extremity edema, unable to assess JVD with neck size. ECHO on 06/10 with EF of 55%, no valve disease excellent response to Lasix with over 4 liters out since admission and weigh tdown 6kg Feelin gmuch better, not hypoxic, edema down dc Lawson -change to po lasix 40mg daily for tomorrow suspected that she has a lot of extra volume on board from recent hospitalizations certainly difficult to determine what a euvolemic status would be given her body habitus would continue to diurese her and watch renal function, check BMP in the morning consulted PT/OT to get her moving and did well Daily weight and I&Os Heart healthy, low Na diet, continue fluid restriction to 1800ml Likely dc to home tomorrow (2) Shortness of breath on exertion: due to pulmonary edema Resovled today with diuresis, no hypoxia (3) Ileus: Resolved, is moving bowels, sylvia reg diet Low fiber diet limit opioids (4) Hx of small bowel obstruction: s/p laparoscopic incarcerated hernia repair 05/20 @ [place] [Dr Villatoro] Some veronica still left in, no surrounding cellulitis on exam or panniculitis on CT Change wound packing daily for dehiscence Consult wound care nurse for further management of surgical incision Consult dietary for nutrition management Needs outpt f/u with Surgeon soon (5) Diarrhea: Watery stool described by patient with strong smell. *C diff negative* Improved, small amount blood likely hemorrhoidal in setting of chronic coumadin therapy (6) Nonalcoholic steatohepatitis (BOOTHE): Laparoscopic liver biopsy during hernia repair on 05/20 confirmation of steoatohepatitis (7) Jaw pain: Suspect neuropathic pain after recent intubation based on history (Left V3 sided trigeminal neuralgia). Previous diagnosed with thrush but none currently on exam. Baclofen 10mg BID. Consider carbamazepine, oxcarbazepine if ongoing. No gingivitis or abscess suspected on exam but if febrile consider CT to assess for this as gum is significantly tender on palpation. no complaints of pain today (8) History of pulmonary embolism: Continue warfarin dosing (currently 2mg PO daily) INR up to 2.3 PT/INR daily (9) GERD (gastroesophageal reflux disease): Continue pantoprazole 40mg PO daily (10) Morbid obesity: Nutrition evaluation (11) Physical deconditioning: PT/OT evals-stable for dc to home (12) Crohns disease: Adalimumab 40mg SQ every other week Last dose 05/11/2019. Likely on hold for poor wound healing from surgery (13) Hyperlipidemia: Continue atorvastatin 20mg PO daily (14) Environmental allergies: Continue Montelukast 10mg PO HS, loratadine 10 mg PO QAM Will prescribe albuterol PRN is she has any wheezing (15) Left sided abdominal pain: seems MSK strain AAS no obstruction, she is eating and moving bowels, pain worse with cough or movement, no hernia on exam -follow clinically she requests heating pad to left shoulder (16) DVT prophylaxis: coumadin Dispo-continued stay for left sided abd pain observation but likely dc to home tomorrow Admission and Anticipated Discharge Date Admission Date: June 10, 2019 Anticipated date of discharge: 06/13/19 Subjective Pt feeling much less SOB, leg swelling is down. But today has noticed a left sided lower abd pain that only hurts like a sharp pain with coughing that radiates to the left shoulder. Otherwise is moving her bowels and had a small amount BRBPR today. No nausea and is eating a full lunch when I saw her. Does not feel ready to go home yet Review of Systems Review of Systems: All systems reviewed & are unremarkable except as noted in HPI & below Physical Exam Constitutional: WD/WN, vitals as above + morbidly obese Eyes: + anicteric sclerae Neck: trachea midline, no thyromegaly Respiratory: normal respiratory effort, lungs clear to auscultation Cardiovascular: Rate/Rhythm: regular rate and regular rhythm Heart Sounds: no murmur Extremities: + edema (trace LE edema to mid tibia bilat) Chest (Breasts): Chest: normal inspection of chest Gastrointestinal (Abdomen): Inspection/Auscultation: + abdomen abnormal to inspection (incision with dressing in place-removed and with veronica in place) Percussion/Palpation: + abdomen tender (mild in LLQ,no guarding or rebound) packing in place in several spots through horizontal incision lower abdomen, scant purulent drainage, no erythema of skin surrounding Musculoskeletal: Extremities: extremities normal to inspection; no cyanosis and no clubbing Skin: no rashes, warm and dry Neurologic: moves all extremities and awake; no focal motor deficits Psychiatric: A+Ox3, euthymic affect Lymphatic: no lymphedema Results & Data Results & Data [facility]) Vital Signs (Past 12 Hours) Vital Signs Temp Pulse Resp BP Pulse Ox 06/12/19 07:15 36.6 C 75 16 120/67 94 Laboratory Results labs reviewed Diagnostic Findings XR abdomen 2V w PA chest CLINICAL HISTORY: 64 years-old Female presenting with left sided abdominal pain. TECHNIQUE: PA view of the chest and supine and upright views of the abdomen were obtained. COMPARISON: 06/10/2019. FINDINGS: Atherosclerosis of the aortic arch. Cardiac silhouette normal in size. Minimal basilar opacities. No pleural effusion or pneumothorax. Nonobstructive bowel gas pattern. Multiple air-fluid levels within large bowel, nonspecific. No gross pneumoperitoneum. Skin veronica partially visualized over the lateral right abdomen. Allowing for bowel gas and stool, no calcifications to suggest nephrolithiasis. Atherosclerotic calcifications. Degenerative changes of the spine. IMPRESSION: 1. Minimal basilar opacities likely atelectasis. No convincing evidence of acute cardiopulmonary disease. 2. No convincing evidence of bowel obstruction. PG Care Time/CCT Total # of Minutes Spent Total Time Spent with Patient: Total time spent is greater than 50% in coordination of care (as documented) at patient's floor/unit and/or counseling patient: Coding Level of Care Code 66989 Subseq Hosp Care Lvl 3 Diagnoses Acute diastolic (congestive) heart failure I50.31 Shortness of breath on exertion R06.02 Ileus K56.7 Hx of small bowel obstruction Z87.19 Diarrhea R19.7 Diarrhea type: unspecified type Nonalcoholic steatohepatitis (BOOTHE) K75.81 Jaw pain R68.84 History of pulmonary embolism Z86.711 GERD (gastroesophageal reflux disease) K21.9 Esophagitis presence: without esophagitis Morbid obesity E66.01 Physical deconditioning R53.81 Crohns disease K50.919 Digestive disease complication type: unspecified complication Gastrointestinal tract location: unspecified location Hyperlipidemia E78.49; E78.4 Hyperlipidemia type: other hyperlipidemia Environmental allergies Z91.09 Left sided abdominal pain R10.9 DVT prophylaxis Z29.9 (1) Crohns disease Digestive disease complication type: unspecified complication Gastrointestinal tract location: unspecified location Qualified Code(s): K50.919 - Crohn's disease, unspecified, with unspecified complications (2) Diarrhea Diarrhea type: unspecified type Qualified Code(s): R19.7 - Diarrhea, unspecified (3) Hyperlipidemia Hyperlipidemia type: other hyperlipidemia Qualified Code(s): E78.49 - Other hyperlipidemia; E78.4 - Other hyperlipidemia (4) GERD (gastroesophageal reflux disease) Esophagitis presence: without esophagitis Qualified Code(s): K21.9 - Gastro- esophageal reflux disease without esophagitis
--- NOTE | 2019-06-12 13:31 | XRay Report ---
XR abdomen 2V w PA chest CLINICAL HISTORY: 64 years-old Female presenting with left sided abdominal pain. TECHNIQUE: PA view of the chest and supine and upright views of the abdomen were obtained. COMPARISON: 06/10/2019. FINDINGS: Atherosclerosis of the aortic arch. Cardiac silhouette normal in size. Minimal basilar opacities. No pleural effusion or pneumothorax. Nonobstructive bowel gas pattern. Multiple air-fluid levels within large bowel, nonspecific. No gross pneumoperitoneum. Skin veronica partially visualized over the lateral right abdomen. Allowing for bowel gas and stool, no calcifications to suggest nephrolithiasis. Atherosclerotic calci fications. Degenerative changes of the spine. IMPRESSION: 1. Minimal basilar opacities likely atelectasis. No convincing evidence of acute cardiopulmonary dis ease. 2. No convincing evidence of bowel obstruction. ACT 112: Negative or not required by law. Electronically signed by: Everton Bansk M.D. 06/12/2019 1:30 PM
[2019-06-12] MEDS ORDERED: ADALIMUMAB 40 MG/0.8 ML SYR SQ SCH (19:00)
[2019-06-12] MEDS: WARFARIN SOD 2 MG TAB PO SCH (20:25)
[2019-06-12] MEDS: MONTELUKAST SODIUM 10 MG TABLET PO SCH (20:28)
[2019-06-13 06:19] LABS: INR 2.5 (0.9-1.1); Prothrombin Time 24.8 Seconds (9.0-12.0)
[2019-06-13 06:38] LABS: Calcium 8.7 mg/dl (8.5-10.1); Creatinine Clr Calc Pharmacy 69.9 ml/min; Est GFR (African American) 63.1; Est GFR (Non-African American) 54.4; Magnesium 1.8 mg/dl (1.8-2.4); Potassium 3.5 mmol/L (3.5-5.1)
[2019-06-13] MEDS: BACLOFEN 10 MG TAB PO SCH (08:12)
[2019-06-13] MEDS: POTASSIUM CHLORIDE 10 MEQ TABCR PO SCH (08:12)
[2019-06-13] MEDS: PANTOprazole 40 MG TAB PO SCH (08:12)
[2019-06-13] MEDS: ACETAMINOPHEN 325 MG TAB PO SCH ×2 (08:12→13:13)
[2019-06-13] MEDS: CHOLECALCIFEROL 1,000 UNITS 25 MCG TAB PO SCH (08:12)
[2019-06-13] MEDS: NICOTINE 7 MG/24 HR TDSY TD SCH (08:13)
[2019-06-13] MEDS: CYANOCOBALAMIN (VITAMIN B-12) 100 MCG TABLET PO SCH (08:13)
[2019-06-13] MEDS: LORATADINE 10 MG TAB PO SCH (08:13)
[2019-06-13] MEDS: ATORVASTATIN 20 MG TAB PO SCH (08:13)
[2019-06-13] MEDS: TRAMADOL HCL 50 MG TABLET PO PRN (08:16)
[2019-06-13] MEDS: CALCIUM CARBONATE 1250MG TAB PO SCH (08:50)
[2019-06-13] MEDS ORDERED: FUROSEMIDE 40 MG TAB PO SCH (09:00)
[2019-06-13 12:41] LABS: Hematocrit (blood only) 36.8 % (37-47); Mean Corpuscular Hemoglobin 29.4 pg (25-34); Mean Corpuscular Volume 90.2 fL (80-100); Mean Platelet Volume 9.3 fL (7.4-10.4); Platelet Count 355 K/uL (130-400); RDW Standard Deviation 46.3 fL (36.4-46.3); Red Blood Count 4.08 M/uL (4.2-5.4)
[2019-06-13 12:50] LABS: Mean Corpuscular Hgb Conc 32.6 g/dL (32-36)
[2019-06-13] MEDS ORDERED: DICLOFENAC SOD 1% GEL 100 GM TUBE EXT SCH (13:00)
--- NOTE | 2019-06-13 13:13 | XRay Report ---
XR shoulder LT min 2V routine CLINICAL HISTORY: left shoulder pain x 24 hours,no injury COMPARISON: Chest CT October 17, 2018. FINDINGS: Alignment of the left shoulder is anatomic. No fracture or suspicious lesion is noted. Mil d osteoarthritis of the left acromioclavicular and glenohumeral joints is noted. IMPRESSION: 1. No acute fracture or dislocation of the left shoulder. 2. Mild left shoulder osteoarthritis. ACT 112: Negative or not required by law. Electronically signed by: Teddy Burger M.D. 06/13/2019 1:11 PM
--- NOTE | 2019-06-13 13:14 | XRay Report ---
XR chest 2V PA/lateral CLINICAL HISTORY: Left-sided chest pain. COMPARISON STUDY: Chest CT October 17, 2018. Chest radiograph June 12, 2019. FINDINGS: Lung volumes are mildly diminished. Mild bibasilar opacities favor atelectasis or scarring. There is no evidence for pneumonia or pulmonary edema. No pneumothorax. Trace bilateral pleural effu sions are noted. Cardiomediastinal silhouette is stable. IMPRESSION: 1. Trace bilateral pleural effusions. 2. Linear bibasilar opacities suggestive of atelectasis or scarring. ACT 112: Negative or not required by law. Electronically signed by: Teddy Burger M.D. 06/13/2019 1:13 PM
--- NOTE | 2019-06-13 14:38 | Discharge Summary ---
Date of Service June 13, 2019 Admission HPI Per Admitting Provider Florencia Freeman is a 64 year old female with recent history of small bowel obstruction and congestive diastolic heart failure who presents to the ER with shortness of breath on exertion and general fatigue. She reports not feeling ready to go home with recent discharge from [facility] on June 06. She was short of breath and lasix was discontinued on discharge after significant diuresis there. She denies any chest pain, palpitations. She notes ongoing abdominal pain around incision especially when she coughs, getting worse over the lst 2 days. Packing is being changed by home nursing. No fevers or chills. She denies any nausea or vomiting. She does not watery diarrhea with a strong odor. A lot of belching after her operations but this is improving. No heartburn. Passing gas. Recap of recent events: Admission to [facility] from May 19 to 2019 due to abdominal pain - diagnosed with incarcerated hernia and small bowel obstruction in right lower quadrant prior ileostomy site, operated on . Significant abdominal pain post operatively and by patient/family request she was transferred to [place] on . In addition she had a fever post operatively and diagnosed with PNA treated with levaquin. No significant interventions were done at [place] and she was transferred back to [facility] as a swing bed on . She was noted to have gained a lot of fluid weight and diuresed until Cr started to increased. She was not sent home on any lasix. The patient feels she was rushed out of hospital. Occasional cigarette smoker, 4 cigarettes a year. Quit 3 weeks ago. Despite mini mal cigarette use she is requesting a nicotine patch. Updated her daughter Ignacia Harry over the phone who did not have any questions or concerns at this time Principal Diagnosis Acute diastolic CHF Discharge Exam Constitutional WD/WN, vitals as above + morbidly obese Eyes + anicteric sclerae ENMT Ears: no hearing impairment Neck trachea midline, no thyromegaly Respiratory normal respiratory effort, lungs clear to auscultation Cardiovascular Rate/Rhythm: regular rate and regular rhythm Heart Sounds: no murmur Extremities: + edema (trace LE edema to mid tibia bilat) Chest (Breasts) Chest: normal inspection of chest Gastrointestinal (Abdomen) Inspection/Auscultation: normal bowel sounds; + abdomen abnormal to inspection (incision with dressing in place-removed and with veronica in place) and abdomen not distended Percussion/Palpation: abdomen soft; abdomen nontender incision with packing in place in incision, scant purulent fluid draining, right side with small 1 cm opening, no surrounding erythema Musculoskeletal Extremities: extremities normal to inspection; no cyanosis and no clubbing Left shoulder with FROM, no TTP over anterior shoulder at site of pain, no TTP over chest wall on left side Skin no rashes, warm and dry Neurologic moves all extremities and awake; no focal motor deficits Psychiatric A+Ox3, euthymic affect Lymphatic no lymphedema Discharge Data Allergies Allergy/AdvReac Type Severity Reaction Status Date / Time duloxetine Allergy Nausea Verified 06/10/19 09:41 Consultations 06/10/19 10:58 ED Decision to Admit Stat 06/10/19 12:55 Consult Case Management - Discharge Planning Routine Ordered Studies 06/10/19 08:53 CT abd pelvis wo con Stat Abdomen series CXR Left shoulder xray ECHO Hospital Course (1) Acute diastolic (congestive) heart failure: Generalized hypervolemic state with pulmonary edema on CXR and b/l lower extremity edema, unable to assess JVD with neck size. ECHO on 06/10 with EF of 55%, no valve disease, preserved EF With excellent response to Lasix with over 6 liters out since admission and weight down 6kg Feeling much better, not hypoxic, edema down -continue po lasix 40mg daily and KCl supplement -follow BMP at rehab in 2-3 days suspected that she has a lot of extra volume on board from recent hospitalizations certainly difficult to determine what a euvolemic status would be given her body habitus Daily weight and I&Os Heart healthy, low Na diet, continue fluid restriction to 2000ml (2) Shortness of breath on exertion: due to pulmonary edema Resolved today with diuresis, no hypoxia (3) Ileus: Resolved, is moving bowels, sylvia reg diet Low fiber diet limit opioids (4) Hx of small bowel obstruction: s/p laparoscopic incarcerated hernia repair 05/20 @ [facility] [Dr Villatoro] Some veronica still left in, no surrounding cellulitis on exam or panniculitis on CT Change wound packing and dressing daily for dehiscence Consult wound care nurse for further management of surgical incision Consult dietary for nutrition management Needs outpt f/u with Surgeon soon-arranged for next week (5) Diarrhea: Watery stool described by patient *C diff negative* Improved, small amount blood likely hemorrhoidal in setting of chronic coumadin therapy Hemoglobin stable, electrolytes normal Xray of abdomen with air/fluid levels in colon, nonspecific but was also on liquids diet for a few days Tolerating po (6) Nonalcoholic steatohepatitis (BOOTHE): Laparoscopic liver biopsy during hernia repair on 05/20 confirmation of steoatohepatitis (7) Jaw pain: Suspect neuropathic pain after recent intubation based on history (Left V3 sided trigeminal neuralgia). Previous diagnosed with thrush but none currently on exam. Started Baclofen 10mg BID. Consider carbamazepine, oxcarbazepine if ongoing. No gingivitis or abscess suspected on exam but if febrile consider CT to assess for this as gum is significantly tender on palpation. no complaints of pain today (8) History of pulmonary embolism: Continue warfarin dosing (currently 2mg PO daily) INR up to 2.5 PT/INR in 2-3 days as is on higher dose than previous 1mg daily (9) GERD (gastroesophageal reflux disease): Continue pantoprazole 40mg PO daily (10) Morbid obesity: Nutrition evaluation (11) Physical deconditioning: PT/OT evals appreciated--> plans for rehab stay (12) Crohns disease: Adalimumab 40mg SQ every other week Last dose 06/12/2019 given here However, would recommend placing on hold for poor wound healing from surgery (13) Hyperlipidemia: Continue atorvastatin 20mg PO daily (14) Environmental allergies: Continue Montelukast 10mg PO HS, loratadine 10 mg PO QAM -albuterol PRN if she has any wheezing (15) Left sided abdominal pain: seems MSK strain AAS no obstruction, she is eating and moving bowels, pain worse with cough or movement, no hernia on exam -follow clinically--> now completely resolved (16) Left shoulder pain: Ongoing now x 24 hours, constant, radiating down left anterior chest wall Troponin negative, ECG normal, xrays of chest and shoulder with mild OA left shoulder Could be cervical radiculopathy? Muscle spasm in left side of neck? Is therapeutic on INR so not likely PE and not hypoxic, no SOB. Advised heating pad, Voltaren gel , and physical therapy (17) DVT prophylaxis: coumadin Dispo-dc to acute rehab today Total Time Total Time Spent Total Time Spent (In Minutes): 35 min Total Time Includes: Examination of the Patient, Discharge Planning and Medication Reconciliation Discharge Plan Discharge Items Patient Disposition: Transfer Inpatient Rehab Fac Reason For Visit: SOB Discharge Diagnosis: Acute diastolic CHF Condition on Discharge: Fair Activity: As commented below Bathing: Keep incision dry Weightbearing: Full weightbearing Non-emergency contact: Primary Care Provider and Surgeon Call non-emergency contact if: you have any medication questions and your symptoms worsen Follow-up/Referrals: Dr. Venkat Villatoro [Other] - 06/20/19 10:15 am (Please, follow up with Dr. Venkat Villatoro on WednesdayJune 19 at 10:15 am. *This appointment will be at [facility] in [place]. The address is [address] [place] [address] in [place]. This is in the [facility] Building which is down the street and around the corner from the [employer]. To reschedule this appointment, call the office at [phone].) Awa Richard, DO [Primary Care Provider] - Diet: Low Sodium (2gm) Fluids: 2000ml (8 cups) Addtl Attending Provider Instructions: Continue lasix 40mg daily by mouth and daily weights, low sodium diet, and 2000mL/day fluid restriction. Your wound packing needs to be changed out daily along with dressing changes. Please follow up with your Surgeon as scheduled next week. For your left shoulder pain, xrays of the chest and shoulder only showed some arthritis of the shoulder. A workup of your heart with ECG and troponin blood test was negative for heart attack. This could be a pinched nerve from your neck causing pain. Continue with physical therapy for this and if not improving, the physician at [facility] can determine the next step. Please have your PT/INR checked in 2-3 days. Please also have a CBC and BMP checked at that time too. Follow up with Dr. Desir regarding your Crohn's disease given your recent bowel resection, diarrhea, and small amount of bright red blood per rectum. Pending Studies at Discharge: No Stand-Alone Forms: My [facility] Skilled Items Patient informed of condition?: Yes DNR: No Discharge Level of Care: Acute rehab Communicable Disease: No Discharge Prognosis: Improving Lines: None Urinary Catheter: No Medications and DC Order Prescriptions: New baclofen 10 mg Tablet 10 mg PO BID Qty: 60 RF: 0 nicotine 7 mg/24 hr Patch 24 Hour 7 mg transdermal QAM Qty: 14 RF: 0 warfarin [Coumadin] 2 mg Tablet 2 mg PO HS Qty: 30 RF: 0 acetaminophen [Mapap (acetaminophen)] 325 mg Tablet 650 mg PO Q4H PRN (Reason: pain) Qty: 30 RF: 0 diclofenac sodium [Voltaren] 1 % Gel 4 g EXT QID Qty: 100 RF: 0 furosemide 40 mg Tablet 40 mg PO QAM Qty: 30 RF: 0 tramadol 50 mg Tablet 50 mg PO Q4H PRN (Reason: pain) Qty: 10 RF: 0 potassium chloride [Klor-Con M10] 10 mEq Tablet,Er Particles/Crystals 10 meq PO BID Qty: 60 RF: 0 Continued atorvastatin 20 mg tablet 20 mg PO QAM Qty: 90 RF: 3 loratadine 10 mg capsule 10 mg PO QAM Qty: 90 RF: 3 pantoprazole 40 mg tablet,delayed release (DR/EC) 40 mg PO QAM Qty: 90 RF: 1 cyanocobalamin (vitamin B-12) 100 mcg tablet 100 mcg PO DAILY RF: 0 cholecalciferol (vitamin D3) [Vitamin D3] 1,000 unit capsule 5,000 units PO QAM RF: 0 calcium carbonate [Calcium 500] 500 mg calcium (1,250 mg) Tablet 500 mg PO QAM RF: 0 montelukast 10 mg tablet 10 mg PO DAILY RF: 0 albuterol sulfate [Ventolin HFA] 90 mcg/actuation HFA aerosol inhaler 2 puffs INH Q6H PRN (Reason: shortness of breath or wheezing or cough) Qty: 18 RF: 0 Humira 40 mg/0.8 mL syringe kit 40 mg SUBCUT UD Qty: 6 RF: 3 Discontinued warfarin 1 mg tablet 1 mg PO UD RF: 0 Discharge Orders: Discharge Order (Routine); Ordered 06/13/19 Ordered By: Namita Grayson Admission Data Admit Date/Time: 06/10/19 11:05 Attending Provider: Namita Grayson Admit Provider: Ziggy Knutson Primary Care Provider: Awa Richard Other Providers: Ziggy Knutson ; [facility] Coding Level of Care Code D/C Day Management >30 mins Diagnoses Acute diastolic (congestive) heart failure I50.31 Shortness of breath on exertion R06.02 Ileus K56.7 Hx of small bowel obstruction Z87.19 Diarrhea R19.7 Diarrhea type: unspecified type Nonalcoholic steatohepatitis (BOOTHE) K75.81 Jaw pain R68.84 History of pulmonary embolism Z86.711 GERD (gastroesophageal reflux disease) K21.9 Esophagitis presence: without esophagitis Morbid obesity E66.01 Physical deconditioning R53.81 Crohns disease K50.919 Gastrointestinal tract location: unspecified location Digestive disease complication type: unspecified complication Hyperlipidemia E78.49; E78.4 Hyperlipidemia type: other hyperlipidemia Environmental allergies Z91.09 Left sided abdominal pain R10.9 Left shoulder pain M25.512 DVT prophylaxis Z29.9
--- NOTE | 2019-06-13 14:41 | Electrocardiogram Report ---
Test Reason : Blood Pressure : / mmHG Vent. Rate : 080 BPM Atrial Rate : 080 BPM P-R Int : 190 ms QRS Dur : 078 ms QT Int : 368 ms P-R-T Axes : 030 005 022 degrees QTc Int : 424 ms Normal sinus rhythm Normal ECG When compared with ECG of 10-JUN-2019 08:42, No significant change was found Confirmed by Kedar Quiñonez ([id number]) on 06/13/2019 2:41:09 PM Referred By: REFERRED SELF Confirmed By:Kedar Quiñonez
== END 2019-06-13 17:07 | DRG 292 ==
LOC: ED 08:35 → SUATTDRO 11:05 → 3E 11:05

== ENCOUNTER 2019-12-11 06:01 | Observation (INO) ==
--- NOTE | 2019-11-01 15:21 | PAT Medication Instructions ---
Medication Instructions Date of Service November 01, 2019 Home Medications Medication Instructions Recorded albuterol sulfate [Ventolin HFA] 2 puffs INH Q6H PRN #18 gm 10/18/18 Humira 40 mg SUBCUT UD #6 ml 06/13/19 acetaminophen [Mapap 650 mg PO Q4H PRN #30 tab 06/13/19 (acetaminophen)] atorvastatin 20 mg tablet 20 mg PO QAM #90 tab 06/19/19 furosemide 40 mg tablet 40 mg PO QAM #90 tab 07/06/19 apixaban 5 mg tablet 5 mg PO BID #60 tab 07/24/19 loratadine 10 mg capsule 10 mg PO QAM #90 cap 09/01/19 hydrocortisone 2.5 % topical cream 1 appln TOP BID PRN #28.35 gm 09/06/19 pantoprazole 40 mg tablet,delayed 40 mg PO QAM #90 tab 09/06/19 release tramadol 50 mg tablet 50 mg PO Q12H PRN 30 Days #30 tab 09/06/19 dicyclomine 10 mg capsule 10 mg PO BID PRN #60 cap 10/17/19 calcium carbonate [Calcium 500] 500 mg PO QAM cholecalciferol (vitamin D3) 25 mcg (1,000 unit) capsule 5,000 units PO QAM albuterol sulfate [Ventolin HFA] 2 puffs INH Q6H PRN cyanocobalamin (vitamin B-12) 100 mcg tablet 100 mcg PO QAM Humira 40 mg SUBCUT UD acetaminophen [Mapap (acetaminophen)] 650 mg PO Q4H PRN atorvastatin 20 mg tablet 20 mg PO QAM furosemide 40 mg tablet 40 mg PO QAM apixaban 5 mg tablet 5 mg PO BID diclofenac sodium [Voltaren] 4 g EXT QID PRN montelukast 10 mg PO HS potassium chloride 20 meq PO BIDM loratadine 10 mg capsule 10 mg PO QAM hydrocortisone 2.5 % topical cream 1 appln TOP BID PRN pantoprazole 40 mg tablet,delayed release 40 mg PO QAM tramadol 50 mg tablet 50 mg PO Q12H PRN dicyclomine 10 mg capsule 10 mg PO BID PRN azelastine 1 spray INTNAS BID PRN ofloxacin 10 drp OTIC (EAR) UD PRN ASK your prescriber and surgeon Humira 40 mg SUBCUT UD apixaban 5 mg tablet 5 mg PO BID (in order for spinal anesthesia, Apixaban/Eliquis needs to be stopped 72 hours/3 days before surgery. Please check if okay with doctor that prescribes this to you) STOP taking 24 hours before surgery diclofenac sodium [Voltaren] 4 g EXT QID PRN hydrocortisone 2.5 % topical cream 1 appln TOP BID PRN DO NOT take the morning of surgery calcium carbonate [Calcium 500] 500 mg PO QAM cholecalciferol (vitamin D3) 25 mcg (1,000 unit) capsule 5,000 units PO QAM cyanocobalamin (vitamin B-12) 100 mcg tablet 100 mcg PO QAM furosemide 40 mg tablet 40 mg PO QAM potassium chloride 20 meq PO BIDM loratadine 10 mg capsule 10 mg PO QAM dicyclomine 10 mg capsule 10 mg PO BID PRN Take morning of surgery With a small sip of water, OTHERWISE NOTHING TO EAT OR DRINK AFTER MIDNIGHT: albuterol sulfate [Ventolin HFA] 2 puffs INH Q6H PRN (use if needed; please bring with you to hospital day of surgery if possible) acetaminophen [Mapap (acetaminophen)] 650 mg PO Q4H PRN (okay to take up to 4 hours prior to surgery if needed) atorvastatin 20 mg tablet 20 mg PO QAM pantoprazole 40 mg tablet,delayed release 40 mg PO QAM tramadol 50 mg tablet 50 mg PO Q12H PRN (okay to take up to 4 hours prior to surgery if needed) azelastine 1 spray INTNAS BID PRN (if needed) ofloxacin 10 drp OTIC (EAR) UD PRN (if needed) Take evening before surgery albuterol sulfate [Ventolin HFA] 2 puffs INH Q6H PRN (if needed) acetaminophen [Mapap (acetaminophen)] 650 mg PO Q4H PRN (if needed) montelukast 10 mg PO HS potassium chloride 20 meq PO BIDM tramadol 50 mg tablet 50 mg PO Q12H PRN (if needed) dicyclomine 10 mg capsule 10 mg PO BID PRN (if needed) azelastine 1 spray INTNAS BID PRN (if needed) ofloxacin 10 drp OTIC (EAR) UD PRN (if needed) Other Notes If you have any questions please call us at [phone] or [phone] or [phone] or [phone]
--- NOTE | 2019-11-02 11:47 | Anesthesiology Consultation ---
Date of Service November 02, 2019 Assessment & Plan (1) Encounter for pre-operative examination: - Per assessment on 11/01: Travel screen negative. No known COVID-19 positive contacts or current COVID-19 related symptoms. Surgeon arranging preop COVID testing. Awaiting results. - S/P Left TKA: 08/16/18: SAB x1 attempt at L3-L4 + PNB at [facility] - S/P panniculectomy: 05/18/18: Grade 1 View, MAC #3, ETT #7.0 Chart Review Chart Review: Acceptable Risk for Surgery and Patient seen in Pre Admission Testing Teaching & Discussion Pre-Anesthesia Teaching/Discussion Notes: Instructed NPO after midnight before surgery,except medications with 15 cc of water. Medication instructions provided according to the PAT guidelines. History Surgery Operation Date: 11/24/19 07:00 Proposed Procedures p Right Total Knee Arthroplasty - Oz Camacho, Height/Weight Height: 5 ft 5 in Weight: 115.3 kg Allergies Allergy/AdvReac Type Severity Reaction Status Date / Time duloxetine Allergy Nausea Verified 10/27/19 09:04 Medications Home Medications Medication Instructions Recorded Confirmed Last Taken calcium carbonate [Calcium 500] 500 mg PO QAM 04/03/18 10/27/19 07/30/19 cholecalciferol (vitamin D3) 25 5,000 units PO QAM cap 07/13/18 10/27/19 07/30/19 mcg (1,000 unit) capsule albuterol sulfate [Ventolin HFA] 2 puffs INH Q6H PRN #18 gm 10/18/18 10/27/19 Unknown cyanocobalamin (vitamin B-12) 100 100 mcg PO QAM 11/13/18 10/27/19 07/30/19 mcg tablet Humira 40 mg SUBCUT UD #6 ml 06/13/19 10/27/19 07/20/19 acetaminophen [Mapap 650 mg PO Q4H PRN #30 tab 06/13/19 10/27/19 07/29/19 (acetaminophen)] atorvastatin 20 mg tablet 20 mg PO QAM #90 tab 06/19/19 10/27/19 07/30/19 furosemide 40 mg tablet 40 mg PO QAM #90 tab 07/06/19 10/27/19 07/30/19 apixaban 5 mg tablet 5 mg PO BID #60 tab 07/24/19 10/27/19 07/30/19 diclofenac sodium [Voltaren] 4 g EXT QID PRN 07/30/19 10/27/19 07/30/19 montelukast 10 mg PO HS 07/30/19 10/27/19 07/29/19 potassium chloride 20 meq PO BIDM 07/30/19 10/27/19 07/30/19 loratadine 10 mg capsule 10 mg PO QAM #90 cap 09/01/19 10/27/19 Unknown hydrocortisone 2.5 % topical cream 1 appln TOP BID PRN #28.35 gm 09/06/19 10/27/19 Unknown pantoprazole 40 mg tablet,delayed 40 mg PO QAM #90 tab 09/06/19 10/27/19 Unknown release tramadol 50 mg tablet 50 mg PO Q12H PRN 30 Days #30 tab 09/06/19 10/27/19 Unknown dicyclomine 10 mg capsule 10 mg PO BID PRN #60 cap 10/17/19 10/27/19 Unknown azelastine 1 spray INTNAS BID PRN 10/27/19 10/27/19 Unknown ofloxacin 10 drp OTIC (EAR) UD PRN 10/27/19 10/27/19 Unknown Past Medical History Medical History Crohns disease hx ileostomy and subsequent reversal, previously had multiple SBOs, on Humira- stable "in remission" Diverticulosis Environmental allergies GERD (gastroesophageal reflux disease) controlled History of CHF (congestive heart failure) remote hx, s/p ECHO 06/2019 and DSE 10/2018 History of pulmonary embolism 3+ years ago (DVT, PE) in setting of sedentary lifestyle, on eliquis Hx of deep venous thrombosis 3+ years ago (DVT, PE) in setting of sedentary lifestyle, on eliquis Hyperlipidemia Insomnia Internal hemorrhoids Migraine headache Morbid obesity Nonalcoholic steatohepatitis (BOOTHE) Osteoarthritis Exercise / Class Metabolic Activity III < 4 Walking/Shop/Light housework (uses walker PRN) Past Family History Family History Mother , [place] at 44 y/o Myocardial infarction Sister Anxiety Breast cancer Father Hypertension Other No family history of adverse response to anesthesia Denies family history of Ovarian cancer Prostate cancer Lung cancer Colorectal cancer Past Surgical History Surgical History H/O colonoscopy History of bilateral tubal ligation History of colon resection (09/03/16) 09/03/16 [facility] History of esophagogastroduodenoscopy (EGD) 04/03/18 - Grade 1 View, MAC #3, ETT #7.0, HiLo Oral 10/29/17 - Grade 2 View, MAC #3, ETT #7.5, HiLo Oral History of left knee replacement Left TKA: 08/16/18: SAB x1 attempt at L3-L4 + PNB at [facility] History of myringotomy History of reversal of ileostomy 08/24/17 [facility] History of tooth extraction S/P laparoscopic hernia repair (05/21/19) diag lap, [facility], Lap liver biopsy, lap assisted small bowel resection, open abd wall hernia repair Status post panniculectomy (~05/18/18) 05/18/18 - Grade 1 View, MAC #3, ETT #7.0 Past Anesthesia History No Hx of Anesthesia Complications and No Family Hx of Anesthesia Complications History of PONV No Hx of PONV and Hx of Motion Sickness (+ backseat of car) Social History Smoking Status: Current every day smoker tobacco type: cigarettes Smoking cigarettes per day: 8 cigarettes/day (previously heavier use);tobacco use intermittent x 30 yrs Do You Dip or Chew Tobacco: No Hx Alcohol Use: No Hx Substance Use: No substance use type: does not use Review of Systems Patient denies chest pain, shortness of breath, fever, chills, cough, wheezing, palpitations. Physical Exam Vital Signs VITALS BP 112/72 P 70 TEMP 988.2 SP02 95%RA RESP 16 PHYSICAL Full neck and c-spine range of motion. Full TMJ range of motion. TMD 3 finger breaths Mallampati Score 3 Dentition: upper denture, edentulous Lungs: clear throughout to auscultation Cardiac: regular rate and rhythm, no murmurs noted Spine: normal Carotid arteries: negative bruit Extremities: non-pitting le edema Testing Laboratory Results 11/02/19 12:04 11/02/19 12:04 PT 10.7 Seconds (9.0-12.0) 11/02/19 12:04 INR 1.0 (0.9-1.1) 11/02/19 12:04 APTT 33.1 Seconds (21.0-31.0) H 11/02/19 12:04 Blood Type O Positive 11/02/19 12:04 Antibody Screen NEGATIVE 11/02/19 12:04 Mildly elevated, isolated PTT. At anesthesiologist discretion AM DOS if recheck needed from their perspective* Electrocardiogram Date: 06/13/19 Findings: + NSR @ (80) Chest X-Ray Date: 06/13/19 Trace bilateral pleural effusions. Linear bibasilar opacities suggestive of atelectasis or scarring. Echocardiogram Date: 06/11/19 EF 55-60%. No RWMA. Stress Test Date: 10/17/18 Type: DSE Normal DSE without evidence of inducible ischemia. No significant valvular disease. 91% MPHR. EF 60-65%.
[2019-11-02 13:25] LABS: Basophils # (auto) 0.02 K/uL (0-0.2); Basophils % (auto) 0.3 %; Eosinophils # (auto) 0.22 K/uL (0-0.5); Eosinophils % (auto) 3.8 %; Hematocrit (blood only) 39.5 % (37-47); Hemoglobin 13.2 g/dL (12.0-16.0); Immature Granulocytes # (auto) 0.02 K/uL (0.00-0.02); Immature Granulocytes % (auto) 0.3 %; Lymphocytes # (auto) 2.39 K/uL (1.2-3.4); Lymphocytes % (auto) 41.7 %; Mean Corpuscular Hemoglobin 30.6 pg (25-34); Mean Corpuscular Hgb Conc 33.4 g/dL (32-36); Mean Corpuscular Volume 91.4 fL (80-100); Monocytes # (auto) 0.54 K/uL (0.11-0.59); Monocytes % (auto) 9.4 %; Neutrophils # (auto) 2.54 K/uL (1.4-6.5); Neutrophils % (auto) 44.5 %; Platelet Count 239 K/uL (130-400); Red Blood Count 4.32 M/uL (4.2-5.4); White Blood Count 5.73 K/uL (4.8-10.8)
[2019-11-02 13:34] LABS: Partial Thromboplastin Ratio 1.2; Partial Thromboplastin Time 33.1 Seconds (21.0-31.0); Prothrombin Time 10.7 Seconds (9.0-12.0)
[2019-11-02 13:41] LABS: BUN Creatinine Ratio 19.5 (10-20); Calcium 9.4 mg/dl (8.5-10.1); Creatinine Clr Calc Pharmacy 64.1 ml/min; Est GFR (African American) 60.4; Est GFR (Non-African American) 52.1; Potassium 4.3 mmol/L (3.5-5.1)
--- NOTE | 2019-12-07 07:57 | History & Physical Report ---
Date of Service December 07, 2019 Assessment & Plan (1) Osteoarthritis of right knee: We will proceed with a right total knee arthroplasty. Postoperatively she will be placed back on Eliquis for DVT prophylaxis. 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 She will then be kept overnight in the hospital for postoperative medical management. She plans to use [facility] upon discharge. Present on Admission?: Yes History of Present Illness Chief Complaint: Primary osteoarthritis of the right knee Primary Care Provider: Awa Richard DO Florencia is a pleasant 64-year-old female who has had a several month history of increasing left knee pain. She had a left knee replacement done over a year ago and did very well with that. Unfortunately her right knee pain has been fairly severe. She is having difficulty walking long distances. Is a constant dull ache in her right knee. After failing conservative treatment, she has elected proceed with a right total knee arthroplasty. Allergies Allergy/AdvReac Type Severity Reaction Status Date / Time duloxetine Allergy Nausea Verified 10/27/19 09:04 Home Medications Home Medications Medication Instructions Recorded Confirmed Type calcium carbonate [Calcium 500] 500 mg PO QAM 04/03/18 10/27/19 History cholecalciferol (vitamin D3) 25 5,000 units PO QAM cap 07/13/18 10/27/19 History mcg (1,000 unit) capsule albuterol sulfate [Ventolin HFA] 2 puffs INH Q6H PRN #18 gm 10/18/18 10/27/19 Rx cyanocobalamin (vitamin B-12) 100 100 mcg PO QAM 11/13/18 10/27/19 History mcg tablet Humira 40 mg SUBCUT UD #6 ml 06/13/19 10/27/19 Rx atorvastatin 20 mg tablet 20 mg PO QAM #90 tab 06/19/19 10/27/19 Rx furosemide 40 mg tablet 40 mg PO QAM #90 tab 07/06/19 10/27/19 Rx apixaban 5 mg tablet 5 mg PO BID #60 tab 07/24/19 10/27/19 Rx diclofenac sodium [Voltaren] 4 g EXT QID PRN 07/30/19 10/27/19 History montelukast 10 mg PO HS 07/30/19 10/27/19 History loratadine 10 mg capsule 10 mg PO QAM #90 cap 09/01/19 10/27/19 Rx hydrocortisone 2.5 % topical cream 1 appln TOP BID PRN #28.35 gm 09/06/19 10/27/19 Rx pantoprazole 40 mg tablet,delayed 40 mg PO QAM #90 tab 09/06/19 10/27/19 Rx release tramadol 50 mg tablet 50 mg PO Q12H PRN 30 Days #30 tab 09/06/19 10/27/19 Rx dicyclomine 10 mg capsule 10 mg PO BID PRN #60 cap 10/17/19 10/27/19 Rx ofloxacin 10 drp OTIC (EAR) UD PRN 10/27/19 10/27/19 History acetaminophen 325 mg tablet 650 mg PO Q4H PRN #30 tab 11/08/19 Rx ondansetron 4 mg disintegrating 4 mg PO Q8H PRN #30 tab 11/08/19 Rx tablet potassium chloride 20 mEq 20 meq PO BIDM #180 tab 12/04/19 Rx tablet,extended release(part/cryst) azelastine 137 mcg (0.1 %) nasal 1 spray INTNAS BID PRN #30 ml 12/07/19 Rx spray aerosol Past Med/Surg History Medical History Crohns disease hx ileostomy and subsequent reversal, previously had multiple SBOs, on Humira- stable "in remission" Diverticulosis Environmental allergies GERD (gastroesophageal reflux disease) controlled History of CHF (congestive heart failure) remote hx, s/p ECHO 06/2019 and DSE 10/2018 History of pulmonary embolism 3+ years ago (DVT, PE) in setting of sedentary lifestyle, on eliquis Hx of deep venous thrombosis 3+ years ago (DVT, PE) in setting of sedentary lifestyle, on eliquis Hyperlipidemia Insomnia Internal hemorrhoids Migraine headache Morbid obesity Nonalcoholic steatohepatitis (BOOTHE) Osteoarthritis Surgical History H/O colonoscopy History of bilateral tubal ligation History of [place]09/03/16[place] [facility] [place] of esophagogastroduodenoscopy (EGD) 04/03/18 - Grade 1 View, MAC #3, ETT #7.0, HiLo Oral 10/29/17 - Grade 2 View, MAC #3, ETT #7.5, HiLo Oral History of left knee replacement Left TKA: 08/16/18: SAB x1 attempt at L3-L4 + PNB at [facility] History of myringotomy History of reversal of [place]ostomy [place] [facility] [place] of tooth extraction S/P laparoscopic hernia repair (05/21/19) diag lap, YAIR, Lap liver biopsy, lap assisted small bowel resection, open abd wall hernia repair Status post panniculectomy (~05/18/18) 05/18/18 - Grade 1 View, MAC #3, ETT #7.0 Family History Mother , [place] at 44 y/o Myocardial infarction Sister Anxiety Breast cancer Father Hypertension Other No family history of adverse response to anesthesia Denies family history of Ovarian cancer Prostate cancer Lung cancer Colorectal cancer Social History Smoking Status: Current every day smoker packs per day: 5; Cigarettes Per Day: 7-8; Second Hand Exposure: No; Hx Alcohol Use: No Hx Substance Use: No Preferred Language: Pashto Communication Ability: Effective Visual Impairment: No Limitations Hearing Ability: Normal Casino Attendant Required: No Beliefs That Will Affect Care: None marital status: Unknown Current Living Situation: Alone Current Living Situation Comment: SON LIVES VERY CLOSE current occupational status: disabled Feels Safe at Home: Yes Childhood Exposure to Second-Hand Smoke: No caffeine: No Dental Care, Regularly: Yes Physical Activity Frequency: 1-2 Times per Week Seatbelt Use: always Sunscreen Use: No Assistive Devices: Walker Review of Systems Review of Systems: All systems reviewed & are unremarkable except as noted in HPI & below Physical Exam Constitutional: WD/WN, vitals as above Eyes: PERRL, conjunctivae normal, anicteric sclerae ENMT: external ear and nose normal, oropharynx normal Neck: trachea midline, no thyromegaly Respiratory: normal respiratory effort Cardiovascular: RRR, no murmur, no edema Gastrointestinal (Abdomen): normal bowel sounds, soft, nontender, no hepatosplenomegaly Musculoskeletal: On physical examination of the right knee there is a trace effusion. There is near full range of motion and no evidence of instability. There is significant tenderness palpation along the medial and lateral joint lines and over the distal femoral condyles. Psychiatric: A+Ox3, euthymic affect Results & Data Results & Data ([facility]) Diagnostic Findings Radiographs of the right knee demonstrate advanced osteoarthritis with joint space narrowing osteophyte formation and [id number] articulation. PG Care Time/CCT Total # of Minutes Spent Total Time Spent with Patient: Total time spent is greater than 50% in coordination of care (as documented) at patient's floor/unit and/or counseling patient: Coding Level of Care Code None Diagnoses Osteoarthritis of right knee M17.11
[~2019-12-11 06:01] MED LIST changes: -CEFAZOLIN 3000MG 72.5 ML IV SCH; +GABAPENTIN 300 MG CAP PO SCH; +TRANEXAMIC ACID 1,000 MG **IV Pre-op IV SCH; +ceFAZolin 2000MG 2,000 MG/15 ML SYR IV SCH; +dexAMETHasone 4 MG TAB PO SCH
[2019-12-11] MEDS ORDERED: BUPIVACAINE 0.25% 30 ML VIAL ONE (06:36)
[2019-12-11] MEDS ORDERED: BUPIVACAINE 0.5 % 5 MG/1 ML PF 10ML VIAL ONE (06:36)
--- NOTE | 2019-12-11 06:38 | History & Physical Bridge Note ---
Date of Service December 11, 2019 History & Physical Bridge Note I have examined the patient, reviewed the History & Physical and in the interval since the performance of the History & Physical I have noted the following changes of clinical significance: no changes noted
[2019-12-11] MEDS ORDERED: LIDOCAINE HCL 2% 2 ML VIAL/AMP(20MG/ML) INFIL ONE (07:50)
[2019-12-11] MEDS ORDERED: fentaNYL citrate 100 MCG/2 ML VIAL ONE (07:50)
[2019-12-11] MEDS ORDERED: MIDAZOLAM HCL 1 MG/ML 2ML VIAL ONE ×2 (07:50)
[2019-12-11] MEDS ORDERED: PROPOFOL IV EMULSION 10 MG/ML 20 ML VIAL IV ONE (07:50)
[2019-12-11] MEDS ORDERED: ePHEDrine sulfate 50 MG/ML AMP IV PRN (08:18)
[2019-12-11] MEDS ORDERED: ATROPINE SULFATE 0.1 MG/ML 10ML SYR IV PRN (08:18)
[2019-12-11] MEDS ORDERED: fentaNYL citrate 100 MCG/2 ML VIAL IV PRN (08:18)
[2019-12-11] MEDS ORDERED: ONDANSETRON INJ 2 MG/ML 2 ML VIAL IV PRN ×2 (08:18→13:14)
[2019-12-11] MEDS ORDERED: ORTHO JOINT ANESTHETIC ONE (09:47)
--- NOTE | 2019-12-11 11:20 | Operative Report ---
PG Post Operative Report Pre & Post Diagnosis Operation Date: 12/11/19 09:05 Pre-Op Diagnosis: Right Knee Degenerative Joint Disease Post-Op Diagnosis: Right Knee Degenerative Joint Disease I identified the patient and participated in the time-out.: Yes Procedure Operation Date: 12/11/19 09:05 Actual Procedures p Right Total Knee Arthroplasty(Right) - Oz Camacho DO Surgeon Oz Camacho DO Assembler Camper Oz Nixon PAC Estimated Blood Loss 20 Findings Consistent with Post-Op Diagnosis Specimens Right femoral and tibial bone Complications none Disposition Disposition: Recovery Room Indications Florencia is a pleasant 64-year-old female whose been dealing with chronic right knee pain. X-rays and clinical examination were diagnostic for advanced osteoarthritis of the right knee. After failing conservative treatment, she elected proceed with a right total knee arthroplasty. Description of Procedure Implants used: I used a [employer]omet Vanguard total knee arthroplasty system with a size 65 femur, 67 tibia, 31 patella, and a size 12 PS plus polyethylene bearing. All components were cemented in place with Palacos G cement. Florencia arrived [facility] for the above procedure. She was seen in the preoperative holding area and the operative extremity was identified and signed. She was given a preoperative antibiotic, TXA, a spinal anesthetic and an adductor nerve block. She was taken back to the operating room and laid on the table in supine position. She was given basic sedation. The operative knee was then prepped and draped in sterile fashion. A timeout was done, and the patient and the operative extremity was properly identified. A midline incision was made directly over the patella. Dissection was taken down to the extensor mechanism. A subvastus arthrotomy was used. The medial retinaculum was released and the fat pad was mostly excised. The knee was flexed and the ACL, PCL, and meniscus were removed. A drill was sent down the center of the femoral canal followed by an intramedullary jayme. Off that jayme a distal femoral cutting block was placed. 9 mm was resected off the distal femur at 5 of valgus. A posterior referencing AP sizing guide was then placed on the distal femur. The femur measured to be a size 65. 2 drill holes were placed in 3 of external rotation. A 4-in-1 cutting block was then impacted into place. Anterior, posterior, and chamfer cuts were then made. The posterior stabilizing box guide was then impacted into place and the box was resected for the posterior stabilizing component. The proximal tibia was then exposed. A drill was sent down the center of the tibial canal followed by an intramedullary jayme. Off that jayme a proximal tibial resection guide was placed. The proximal tibia was then resected. The tibia measured to be a size 67. The tibial plate was then placed in the appropriate rotation and the tibia was punched. The posterior aspect of the knee was then opened up and any additional meniscus fragments and osteophytes were removed. Trial components were then placed. I used a size 12 PS plus polyethylene insert. The knee was brought through a full range of motion and felt to be stable. The patella was then everted and 8 mm was resected off the posterior aspect of the patella. The patella measured to be a size 31. 3 peg holes were then drilled. A trial patella was placed. The knee was once again brought through a full range of motion and felt to be stable. Trial components were then removed. The surrounding soft tissues were injected with 100 cc of an orthopedic pain control cocktail. All components were then cemented into place with Palacos G cement. The final polyethylene insert was then snapped into place and the anterior bar was locked. Once cement was dry the tourniquet was deflated. Hemostasis was obtained. A dilute betadyne lavage was then done for 3 minutes. The joint was then irrigated with normal saline solution. The subvastus arthrotomy was then closed with #1 Vicryl suture. The skin was closed with 2-0 Vicryl, 3-0V lock suture, and veronica. A Silverlon and a soft compressive dressing were placed. She was then transferred to a hospital bed and taken to the postanesthesia care unit in stable condition. She tolerated the procedure well. Oz Nixon PA-C, was present for the entire procedure. He was critical for patient positioning, prepping, draping, retraction exposure, wound closure and application of sterile dressing. I attest to the content of the Intraoperative Record and any orders documented t herein. Any exceptions are noted below.
--- NOTE | 2019-12-11 12:11 | XRay Report ---
XR knee RT 1 or 2V routine HISTORY: 64 years-old Female Surgical Post Op right knee total joint arthroplasty COMPARISON: Right knee radiographs 10/09/2019 TECHNIQUE: 2 views of the right knee FINDINGS: Right knee total joint arthroplasty and patella resurfacing. Anterior midline skin veronica are noted along with expected postsurgical soft tissue swelling and deep tissue air. No acute fracture or unexp ected opaque foreign body. Surgical drainage catheter. IMPRESSION: Right knee total joint arthroplasty with expected postoperative changes. ACT 112: Negative or not required by law. The above report was generated using voice recognition software. It may contain grammatical, syntax o r spelling errors. Electronically signed by: Neil Bryan M.D. 12/11/2019 12:09 PM
[2019-12-11] MEDS ORDERED: DICYCLOMINE HCL 10 MG CAP PO PRN (13:14)
[2019-12-11] MEDS ORDERED: NALOXONE HCL 0.4 MG/1 ML VIAL/CARP IV PRN (13:14)
[2019-12-11] MEDS ORDERED: MAGNESIUM HYDROXIDE SUSP 30 ML UDC PO PRN (13:14)
[2019-12-11] MEDS ORDERED: METOCLOPRAMIDE HCL INJ 5 MG/ML 2 ML VIAL IV PRN (13:14)
[2019-12-11] MEDS ORDERED: bisacodyL 10 MG SUPP PR PRN (13:14)
[2019-12-11] MEDS ORDERED: HYDROmorphone INJ 0.5 MG/0.5 ML SYR IV PRN (13:14)
[2019-12-11] MEDS ORDERED: ALBUTEROL HFA 8 GM INHALER INH PRN (13:14)
[2019-12-11] MEDS ORDERED: ONDANSETRON 4 MG OD TAB PO PRN (13:37)
[2019-12-11] MEDS: SODIUM CHLORIDE 0.9% 1000ML 1,000 ML IV SCH ×2 (13:45→22:53)
[2019-12-11] MEDS: ACETAMINOPHEN 500 MG TAB PO SCH ×2 (14:05→21:05)
[2019-12-11] MEDS ORDERED: ONDANSETRON INJ 2 MG/ML 2 ML VIAL ONE (14:49)
--- NOTE | 2019-12-11 15:13 | Anesthesiology Progress Note ---
Date of Service December 11, 2019 Anesthesia Post Procedure Vital Signs Vital Signs: Temp Pulse Pulse Pulse Resp BP BP 12/11/19 15:01 36.6 C 75 16 103/62 12/11/19 14:04 36.9 C 74 16 115/68 12/11/19 13:34 36.9 C 71 14 106/65 12/11/19 13:08 36.5 C 75 16 115/72 12/11/19 12:50 78 14 117/70 12/11/19 12:40 36.9 C 77 17 125/74 12/11/19 12:30 76 18 130/72 12/11/19 12:20 83 22 123/77 12/11/19 12:10 81 21 128/75 12/11/19 12:00 83 22 127/74 12/11/19 11:50 81 22 118/70 12/11/19 11:41 37.0 C 90 21 129/77 12/11/19 07:42 36.7 C 70 20 119/72 12/11/19 06:42 37.3 C 73 20 138/78 Pulse Ox 12/11/19 15:01 95 12/11/19 14:04 95 12/11/19 13:34 97 12/11/19 13:08 97 12/11/19 12:50 95 12/11/19 12:40 95 12/11/19 12:30 92 12/11/19 12:20 96 12/11/19 12:10 92 12/11/19 12:00 94 12/11/19 11:50 94 12/11/19 11:41 95 12/11/19 07:42 97 12/11/19 06:42 97 Pain Intensity Right Knee: Pain Intensity: 8 Back: Pain Intensity: 4 Transfer of Care Handoff Completed per policy Notes Mental Status: alert / awake / arousable and participated in evaluation Patient Amnestic to Procedure: Yes Nausea / Vomiting: adequately controlled Pain: adequately controlled Airway Patency, RR, SpO2: stable & adequate BP & HR: stable & adequate Hydration State: stable & adequate Neuraxial Anesthesia: was administered and sensory block is resolving Anesthetic Complications: no major complications apparent and Pt Satisfied with anesthetic care
[2019-12-11] MEDS: KETOROLAC TROMETHAMINE 15 MG/ML VIAL IV SCH ×2 (15:50→21:05)
[2019-12-11] MEDS: POTASSIUM CHLORIDE 20 MEQ TABCR PO SCH (17:41)
[2019-12-11] MEDS: ERYTHROMYCIN OP OINT 5 MG/GM 3.5 GM TUBE OP SCH ×3 (17:41→22:43)
[2019-12-11] MEDS: oxyCODONE HCL IR 5 MG TAB (IMMEDIATE RELEASE) PO PRN ×2 (17:44→22:02)
[2019-12-11] MEDS: ceFAZolin 2000MG 2,000 MG/15 ML SYR IV SCH (17:47)
[2019-12-11] MEDS: SENNA 8.6 MG TAB PO SCH (20:57)
[2019-12-11] MEDS: MONTELUKAST SODIUM 10 MG TABLET PO SCH (20:57)
[2019-12-11] MEDS: DOCUSATE SODIUM 100 MG CAP PO SCH (20:57)
[2019-12-11] MEDS: NICOTINE 14 MG/24 HR PATCH TD SCH (20:59)
[2019-12-12] MEDS: ceFAZolin 2000MG 2,000 MG/15 ML SYR IV SCH (02:03)
[2019-12-12] MEDS: oxyCODONE HCL IR 5 MG TAB (IMMEDIATE RELEASE) PO PRN ×2 (02:03→09:31)
[2019-12-12 03:37] LABS: Hematocrit (blood only) 36.5 % (37-47); Hemoglobin 12.5 g/dL (12.0-16.0); Mean Corpuscular Hemoglobin 32.1 pg (25-34); Mean Corpuscular Hgb Conc 34.2 g/dL (32-36); Mean Corpuscular Volume 93.8 fL (80-100); Mean Platelet Volume 9.9 fL (7.4-10.4); Platelet Count 217 K/uL (130-400); RDW Coefficient of Variation 13.6 % (11.5-14.5); RDW Standard Deviation 46.5 fL (36.4-46.3); Red Blood Count 3.89 M/uL (4.2-5.4); White Blood Count 13.29 K/uL (4.8-10.8)
[2019-12-12] MEDS: KETOROLAC TROMETHAMINE 15 MG/ML VIAL IV SCH ×4 (03:38→21:27)
[2019-12-12 04:20] LABS: BUN Creatinine Ratio 20.2 (10-20); Calcium 7.8 mg/dl (8.5-10.1); Creatinine Clr Calc Pharmacy 48.5 ml/min; Est GFR (African American) 41.9; Est GFR (Non-African American) 36.2; Potassium 4.3 mmol/L (3.5-5.1)
[2019-12-12] MEDS: ERYTHROMYCIN OP OINT 5 MG/GM 3.5 GM TUBE OP SCH ×6 (06:17→21:26)
[2019-12-12] MEDS: ACETAMINOPHEN 500 MG TAB PO SCH ×3 (06:17→21:26)
--- NOTE | 2019-12-12 06:59 | Orthopedic Progress Note ---
Date of Service December 12, 2019 Assessment & Plan (1) Status post right knee replacement: Overall she is doing fairly well. She is not having much pain in the right knee. She will be seen by physical therapy today for ambulation and range of motion exercises. She is on Eliquis for DVT prophylaxis. We plan to discharge her to home tomorrow. Present on Admission?: Yes Admission and Anticipated Discharge Date Admission Date: December 11, 2019 Subjective Florencia was seen and examined at bedside this morning. Overall she is doing fair ly well. She is having too much pain in the right knee. Her left eye is feeling better with the erythromycin ointment for the possible cornea abrasion. Unfortunately she is having little pain of her right eye as well. We will give her some erythromycin ointment for that too. Physical Exam Physical Exam: On physical examination of the right knee, the dressing is clean and dry. She is sitting at a chair at bedside. She has active dorsiflexion and plantarflexion of her right ankle. Sensations intact. Results & Data ([facility]) Vital Signs (Past 12 Hours) Vital Signs Temp Pulse Pulse Resp BP BP Pulse Ox 12/12/19 03:10 36.6 C 66 16 104/67 97 12/12/19 02:01 77 114/62 12/12/19 00:05 36.4 C L 62 16 101/62 93 12/11/19 19:44 36.6 C 76 16 110/64 96 Laboratory Results H & H 11/02/19 12/12/19 Range/Units 12:04 03:24 Hgb 13.2 12.5 (12.0-16.0) g/dL Hct 39.5 36.5 L (37-47) % Coagulation 11/02/19 Range/Units 12:04 INR 1.0 (0.9-1.1) Diagnostic Findings Postoperative x-rays of the right knee show the prosthesis to be in anatomic alignment without any evidence of fracture, dislocation, or loosening. PG Care Time/CCT Total # of Minutes Spent Total Time Spent with Patient: Total time spent is greater than 50% in coordination of care (as documented) at patient's floor/unit and/or counseling p atient: Coding Level of Care Code None Diagnoses Status post right knee replacement Z96.651
[2019-12-12] MEDS ORDERED: dexAMETHasone 4 MG TAB PO SCH (08:00)
[2019-12-12] MEDS: APIXABAN 5 MG TABLET PO SCH ×2 (09:00→19:57)
[2019-12-12] MEDS: POTASSIUM CHLORIDE 20 MEQ TABCR PO SCH ×2 (09:00→17:13)
[2019-12-12] MEDS: PANTOprazole 40 MG TAB PO SCH (09:26)
[2019-12-12] MEDS: NICOTINE 14 MG/24 HR PATCH TD SCH (09:26)
[2019-12-12] MEDS: LORATADINE 10 MG TAB PO SCH (09:27)
[2019-12-12] MEDS: MULTIVITAMIN TAB PO SCH (09:29)
[2019-12-12] MEDS: FUROSEMIDE 40 MG TAB PO SCH (09:29)
[2019-12-12] MEDS: ATORVASTATIN 20 MG TAB PO SCH (09:29)
[2019-12-12] MEDS: DOCUSATE SODIUM 100 MG CAP PO SCH ×2 (09:30→20:04)
--- NOTE | 2019-12-12 10:20 | Anesthesiology Progress Note ---
Date of Service December 12, 2019 Anesthesia Post Procedure Vital Signs Vital Signs: Temp Pulse Pulse Pulse Resp BP BP 12/12/19 07:39 36.8 C 60 18 103/67 12/12/19 03:10 36.6 C 66 16 104/67 12/12/19 02:01 77 114/62 12/12/19 00:05 36.4 C L 62 16 101/62 12/11/19 19:44 36.6 C 76 16 110/64 12/11/19 15:01 36.6 C 75 16 103/62 12/11/19 14:04 36.9 C 74 16 115/68 12/11/19 13:34 36.9 C 71 14 106/65 12/11/19 13:08 36.5 C 75 16 115/72 12/11/19 12:50 78 14 117/70 12/11/19 12:40 36.9 C 77 17 125/74 12/11/19 12:30 76 18 130/72 12/11/19 12:20 83 22 123/77 12/11/19 12:10 81 21 128/75 12/11/19 12:00 83 22 127/74 12/11/19 11:50 81 22 118/70 12/11/19 11:41 37.0 C 90 21 129/77 Pulse Ox 12/12/19 07:39 97 12/12/19 03:10 97 12/12/19 02:01 12/12/19 00:05 93 12/11/19 19:44 96 12/11/19 15:01 95 12/11/19 14:04 95 12/11/19 13:34 97 12/11/19 13:08 97 12/11/19 12:50 95 12/11/19 12:40 95 12/11/19 12:30 92 12/11/19 12:20 96 12/11/19 12:10 92 12/11/19 12:00 94 12/11/19 11:50 94 12/11/19 11:41 95 Pain Intensity Right Knee: Pain Intensity: 5 Back: Pain Intensity: 4 Notes Mental Status: alert / awake / arousable and participated in evaluation Patient Amnestic to Procedure: Yes Nausea / Vomiting: adequately controlled Pain: adequately controlled Airway Patency, RR, SpO2: stable & adequate BP & HR: stable & adequate Hydration State: stable & adequate Anesthetic Complications: no major complications apparent and Pt Satisfied with anesthetic care
[2019-12-12] MEDS: CALCIUM CARBONATE 500 MG CHEWABLE TAB PO PRN ×2 (17:13→20:07)
[2019-12-12] MEDS: MONTELUKAST SODIUM 10 MG TABLET PO SCH (20:04)
[2019-12-12] MEDS: SENNA 8.6 MG TAB PO SCH (20:04)
[2019-12-13] MEDS: ACETAMINOPHEN 500 MG TAB PO SCH ×2 (04:58→13:28)
[2019-12-13] MEDS: KETOROLAC TROMETHAMINE 15 MG/ML VIAL IV SCH ×2 (04:58→09:48)
[2019-12-13] MEDS: ERYTHROMYCIN OP OINT 5 MG/GM 3.5 GM TUBE OP SCH ×3 (06:15→12:47)
--- NOTE | 2019-12-13 07:40 | Orthopedic Progress Note ---
Date of Service December 13, 2019 Assessment & Plan (1) Status post right knee replacement: Patient is recovering as expected to this point. Her pain is well controlled. She will continue working with physical therapy for ambulatory assistance and range of motion exercises. She is orthopedically stable. She will likely be discharged home today. She will continue DVT prophylaxis with Eliquis. Admission and Anticipated Discharge Date Admission Date: December 11, 2019 Subjective Florencia was seen and examined at bedside today. She states her pain has been well controlled. She was able to sleep comfortably through the night. She has been working with physical therapy for ambulatory assistance and range of motion exercises. She has no new complaints today. Physical Exam Physical Exam: Florencia was sitting at side of her bed in no acute distress. She is alert and oriented x3. Her dressings appear clean and dry with evidence of minimal discharge. She is able to actively plantarflex and dorsiflex her foot. She is neurovascularly intact. Results & Data ([facility]) Vital Signs (Past 12 Hours) Vital Signs Temp Pulse Resp BP Pulse Ox 12/12/19 23:00 36.6 C 65 16 117/65 93 PG Care Time/CCT Total # of Minutes Spent Total Time Spent with Patient: Total time spent is greater than 50% in coord ination of care (as documented) at patient's floor/unit and/or counseling patient: Coding Level of Care Code None Diagnoses Status post right knee replacement Z96.651
--- NOTE | 2019-12-13 07:48 | Discharge Summary ---
Date of Service December 13, 2019 Admission HPI Per Admitting Provider Florencia is a pleasant 64-year-old female who has had a several month history of increasing left knee pain. She had a left knee replacement done over a year ago and did very well with that. Unfortunately her right knee pain has been fairly severe. She is having difficulty walking long distances. Is a constant dull ache in her right knee. After failing conservative treatment, she has elected proceed with a right total knee arthroplasty. Principal Diagnosis Right total knee arthroplasty Discharge Data Allergies Allergy/AdvReac Type Severity Reaction Status Date / Time duloxetine Allergy Nausea Verified 12/11/19 06:33 Consultations 12/11/19 13:14 Consult Case Management - Discharge Planning Routine Procedures Performed Operation Date: 12/11/19 09:05 Actual Procedures p Right Total Knee Arthroplasty(Right) - Oz Camacho DO Ordered Studies 11/24/19 05:00 US - OR guided needle placemen Routine 12/11/19 05:00 US - OR guided needle placemen Routine Hospital Course (1) Status post right knee replacement: On December 10 Florencia presented to [facility] for right total knee arthroplasty. The procedure was uncomplicated. She had a spinal anesthetic. Postoperatively she was transferred to general orthopedic floors. On postop day 1 her H&H was stable and her pain was well controlled. She was working with physical therapy for ambulatory assistance and range of motion exercises. On postop day 2 her pain has been well controlled and her H&H is stable again. She was discharged home uneventfully. She will continue DVT prophylaxis with Eliquis. Her pain medications were sent to her pharmacy. She will follow-up with orthopedics in 2 weeks. Total Time Total Time Spent Total Time Spent (In Minutes): 20 minutes Discharge Plan Discharge Items Patient Disposition: Home - Home Health Services Reason For Visit: Right Knee Degenerative Joint Disease Discharge Diagnosis: Right knee replacement Activity: As commented below Non-emergency contact: Surgeon Call non-emergency contact if: your wound has increased redness and your wound has increased drainage Follow-up/Referrals: Awa Richard DO [Primary Care Provider] - Diet: Regular Addtl Attending Provider Instructions: Activity and Therapy Recommendations: * If you are using [facility] then therapy will be provided at your home until they feel you have accomplished all of your goals. * If you are using [facility] then Physical Therapy will be provided until they feel you are ready to start Outpatient Physical Therapy. * If you are not using home therapy then Outpatient Physical Therapy should start about 3-5 days from your day of surgery. Therapy will last about 6-10 weeks * It is important not to put a pillow under your knee when you are relaxing or sleeping. It is just as important to make sure you are getting your knee pe rfectly straight as it is to regain your knee bend. * You were shown a series of exercises in the hospital. Do these exercises three times each day including the exercises you were shown in physical therapy. * Get up and walk several times each day. For the first four weeks, try not to stand or walk for more than one hour at a time. If you do stand or walk for more than one hour, you will not hurt anything, but your leg will likely swell. * As you feel comfortable, you may change from the walker or crutches to a cane and then to independent walking. Medications: * Narcotic You will likely be sent home from the hospital with a prescription for the narcotic pain medication that worked best throughout your stay. * Aspirin Most patients will be required to take Aspirin 81mg twice a day for 6 weeks after surgery. This is obtained [id number] and a prescription is not necessary. * Other medications may be prescribed for specific circumstances. If you have any questions, please call the office at . * Resume previous home medications unless otherwise instructed TEDs/Elastic Stockings: The white elastic stockings help limit swelling and prevent blood clots from forming in your legs.~ The more you wear them, the more they work. Wear them for six weeks. Dressing Care: Leave the Silverlon dressing in place for 7 days. After 7 days you may remove the dressing. If the incision is not draining then you may leave the veronica open to air. If there is a little bit of drainage or if the veronica are getting stuck on your clothing then cover the incision with a dry dressing. The veronica will be removed at your 2 week follow-up appointment. Showering: You may shower with the Silverlon dressing in place. Do not let the shower spray hit the dressing directly. Pat the Silverlon dressing dry. If the dressing becomes wet underneath, then simply remove the dressing. Keep the incision dry until you are 7 days out from the day of surgery. After 7 days you may remove the Silverlon dressing and shower with the veronica exposed. Let soapy water run over the veronica and pat them dry. Do not scrub or soak the incision. Things To Watch For: * Drainage from the incision site that occurs more than one week after your surgery. * Increased redness at the incision site. * Fever above 102 degrees Fahrenheit. * Unusual chest pain or shortness of breath. * Call [facility] at with any of the above problems Follow-Up Visit: Follow-up with Dr. Camacho's PA (Oz Nixon) 2-3 weeks after your day of surgery. He will remove your veronica and answer any questions. If you have any additional questions or concerns, Dr Camacho is usually in the office at the same time and will be available An appointment was probably scheduled when you signed-up for surgery in the office. If you have any questions call Office Instructions: More detailed instructions as well as Frequently Asked Questions were provided in a folder by our office when you signed-up for surgery. Please review these instructions when you get home. If you have any further questions or concerns, please feel free to call the office at [phone] Pending Studies at Discharge: No Stand-Alone Forms: My [facility], Smoking Cessation Medications and DC Order Prescriptions: New oxycodone 5 mg Tablet 5 mg PO Q4H PRN (Reason: pain) Qty: 30 RF: 0 cephalexin [Keflex] 500 mg capsule 500 mg PO Q6H 14 Days Qty: 56 RF: 0 fluconazole [Diflucan] 100 mg tablet 100 mg PO DAILY 3 Days Qty: 3 RF: 0 Continued atorvastatin 20 mg tablet 20 mg PO QAM Qty: 90 RF: 3 furosemide 40 mg tablet 40 mg PO QAM Qty: 90 RF: 1 tramadol 50 mg tablet 50 mg PO Q12H PRN (Reason: pain) 30 Days Qty: 30 RF: 0 pantoprazole 40 mg tablet,delayed release (DR/EC) 40 mg PO QAM Qty: 90 RF: 1 hydrocortisone 2.5 % cream 1 appln TOP BID PRN (Reason: Hemorrhoids) Qty: 28.35 RF: 0 Hold Instructions: duplicate therapy with shampoo acetaminophen [Mapap (acetaminophen)] 325 mg tablet 650 mg PO Q4H PRN (Reason: pain) Qty: 30 RF: 0 ondansetron 4 mg tablet,disintegrating 4 mg PO Q8H PRN (Reason: Nausea And Vomiting) Qty: 30 RF: 0 potassium chloride 20 mEq tablet,ER particles/crystals 20 meq PO BIDM Qty: 180 RF: 1 azelastine 137 mcg (0.1 %) aerosol,spray 1 spray INTNAS BID PRN (Reason: Congestion) Qty: 30 RF: 3 dicyclomine 10 mg capsule 10 mg PO BID PRN (Reason: abdominal discomfort) Qty: 180 RF: 1 cyanocobalamin (vitamin B-12) 100 mcg tablet 100 mcg PO QAM RF: 0 cholecalciferol (vitamin D3) [Vitamin D3] 1,000 unit capsule 5,000 units PO QAM RF: 0 calcium carbonate [Calcium 500] 500 mg calcium (1,250 mg) Tablet 500 mg PO QAM RF: 0 albuterol sulfate [Ventolin HFA] 90 mcg/actuation HFA aerosol inhaler 2 puffs INH Q6H PRN (Reason: shortness of breath or wheezing or cough) Qty: 18 RF: 0 Humira 40 mg/0.8 mL syringe kit 40 mg SUBCUT UD Qty: 6 RF: 3 montelukast 10 mg tablet 10 mg PO HS RF: 0 diclofenac sodium [Voltaren] 1 % gel 4 g EXT QID PRN (Reason: Pain) RF: 0 ofloxacin 0.3 % drops 10 drp otic (ear) UD PRN (Reason: ud) RF: 0 loratadine [Claritin Liqui-Gel] 10 mg capsule 10 mg PO QAM RF: 0 Eliquis 5 mg tablet 5 mg PO BID RF: 0 Discharge Orders: Discharge Order (Routine); Ordered 12/13/19 Ordered By: Oz Camacho Admission Data Admit Date/Time: 12/11/19 11:44 Attending Provider: Oz Camacho Admit Provider: Oz Camacho Primary Care Provider: Awa Richard Other Providers: Miguel Pagan [facility]
[2019-12-13 08:03] VITALS: TEMP 97.7; O2SAT 99
[2019-12-13] MEDS: DOCUSATE SODIUM 100 MG CAP PO SCH (08:03)
[2019-12-13] MEDS: NICOTINE 14 MG/24 HR PATCH TD SCH (08:04)
[2019-12-13] MEDS: POTASSIUM CHLORIDE 20 MEQ TABCR PO SCH (08:05)
[2019-12-13] MEDS: LORATADINE 10 MG TAB PO SCH (08:05)
[2019-12-13] MEDS: FUROSEMIDE 40 MG TAB PO SCH (08:05)
[2019-12-13] MEDS: ATORVASTATIN 20 MG TAB PO SCH (08:05)
[2019-12-13] MEDS: PANTOprazole 40 MG TAB PO SCH (08:05)
[2019-12-13] MEDS: MULTIVITAMIN TAB PO SCH (08:05)
[2019-12-13] MEDS: APIXABAN 5 MG TABLET PO SCH (08:05)
[2019-12-13 09:41] VITALS: BP 117/65; PULSE 75
[2019-12-13] MEDS: CALCIUM CARBONATE 500 MG CHEWABLE TAB PO PRN (12:49)
== END 2019-12-13 13:51 | disposition home health service (06) ==
LOC: 3E 06:01 → ASU 06:01

== ENCOUNTER 2019-12-22 20:36 | Inpatient (IN) ==
[2019-12-22] MEDS ORDERED: PIPERACILL/TAZOBAC CONSULT ACTIVE PRN (21:12)
[2019-12-22] MEDS ORDERED: PIPERACILLIN/TAZOBACTAM 4.5 GM/120 ML BAG IV ONE (21:12)
[2019-12-22] MEDS ORDERED: SODIUM CHLORIDE 0.9% 1000ML 1,000 ML IV ONE (21:12)
[2019-12-22 21:53] LABS: Basophils # (auto) 0.03 K/uL (0-0.2); Basophils % (auto) 0.3 %; Eosinophils # (auto) 0.35 K/uL (0-0.5); Eosinophils % (auto) 3.7 %; Hematocrit (blood only) 34.3 % (37-47); Hemoglobin 11.7 g/dL (12.0-16.0); Immature Granulocytes # (auto) 0.05 K/uL (0.00-0.02); Immature Granulocytes % (auto) 0.5 %; Lymphocytes # (auto) 2.16 K/uL (1.2-3.4); Lymphocytes % (auto) 22.7 %; Mean Corpuscular Hemoglobin 31.8 pg (25-34); Mean Corpuscular Hgb Conc 34.1 g/dL (32-36); Mean Corpuscular Volume 93.2 fL (80-100); Mean Platelet Volume 9.6 fL (7.4-10.4); Monocytes # (auto) 0.75 K/uL (0.11-0.59); Monocytes % (auto) 7.9 %; Neutrophils # (auto) 6.17 K/uL (1.4-6.5); Neutrophils % (auto) 64.9 %; Platelet Count 334 K/uL (130-400); RDW Standard Deviation 47.6 fL (36.4-46.3); Red Blood Count 3.68 M/uL (4.2-5.4); White Blood Count 9.51 K/uL (4.8-10.8)
[2019-12-22 22:09] LABS: Partial Thromboplastin Ratio 1.2; Prothrombin Time 10.8 Seconds (9.0-12.0)
[2019-12-22 22:30] LABS: Albumin Globulin Ratio 0.7 (0.9-2); Albumin Level 2.9 gm/dl (3.4-5.0); BUN Creatinine Ratio 19.5 (10-20); Calcium 9.2 mg/dl (8.5-10.1); Creatinine Clr Calc Pharmacy 75.5 ml/min; Est GFR (African American) 70.2; Est GFR (Non-African American) 60.5; Globulin 4.1 gm/dl (2.5-4.0); Magnesium 1.9 mg/dl (1.8-2.4); Potassium 4.1 mmol/L (3.5-5.1)
[2019-12-22 22:36] LABS: Bilirubin,Total 0.4 mg/dl (0.2-1)
[2019-12-22] MEDS ORDERED: HYDROmorphone INJ 0.5 MG/0.5 ML SYR IV STA (22:38)
[2019-12-22] MEDS ORDERED: ACETAMINOPHEN 500 MG TAB PO STA (22:38)
[2019-12-23] MEDS ORDERED: VANCOMYCIN HCL 2,500 MG in SODIUM CHLORIDE 0.9% 500 ML IV ONE (00:31)
[2019-12-23] MEDS ORDERED: VANCOMYCIN CONSULT ACTIVE PRN ×2 (00:31→02:37)
--- NOTE | 2019-12-23 00:48 | History & Physical Report ---
Date of Service December 23, 2019 Assessment & Plan (1) Cellulitis of right lower leg: Cellulitis of right lower extremity- Placed on vancomycin IV and Zosyn IV per pharmacokinetic monitoring. Discontinue Keflex Present on Admission?: Yes (2) Immunocompromised: Broad-spectrum antibiotics as noted above. Present on Admission?: Yes (3) S/P total knee replacement: Consult orthopedic surgery Dr. Camacho Acetaminophen 650 mg p.o. every 6 hours as needed mild pain or temperature Tramadol 50 mg p.o. every 4 hours as needed moderate pain Oxycodone 5 mg p.o. 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 twice daily Present on Admission?: Yes (5) History of pulmonary embolism: (6) CHF (congestive heart failure): Continue furosemide and potassium chloride Present on Admission?: Yes (7) Nonalcoholic steatohepatitis (BOOTHE): History of Present Illness Chief Complaint: The patient presents to the emergency department due to the development of worsening pain, redness, swelling and warmth from just above her right knee down to and ncluding the dorsum of her foot that developed after being discharged from the hospital on 12/13/2019. Primary Care Provider: Awa Richard DO The patient is a 64-year-old female with a past medical history including long- term use of anticoagulants, macromastia, CHF, BOOTHE, history of pulmonary embolism, insomnia, hyperlipidemia, history of DVT, history of small bowel ob struction, morbid obesity, migraine headache, GERD, Crohn's disease and diverticulosis. She presents with symptoms as noted above. In the emergency department work-up included a negative right lower extremity venous Doppler. In the ED she was given a dose of Zosyn, normal saline 1 L, Tylenol 500 mg p.o., and Dilaudid 0.5 mg IV. Allergies Allergy/AdvReac Type Severity Reaction Status Date / Time duloxetine Allergy Nausea Verified 12/11/19 06:33 Home Medications Home Medications Medication Instructions Recorded Confirmed Type calcium carbonate [Calcium 500] 500 mg PO QAM 04/03/18 12/22/19 History cholecalciferol (vitamin D3) 25 5,000 units PO QAM cap 07/13/18 12/22/19 History mcg (1,000 unit) capsule albuterol sulfate [Ventolin HFA] 2 puffs INH Q6H PRN #18 gm 10/18/18 12/22/19 Rx cyanocobalamin (vitamin B-12) 100 100 mcg PO QAM 11/13/18 12/22/19 History mcg tablet Humira 40 mg SUBCUT UD #6 ml 06/13/19 12/22/19 Rx atorvastatin 20 mg tablet 20 mg PO QAM #90 tab 06/19/19 12/22/19 Rx diclofenac sodium [Voltaren] 4 g EXT QID PRN 07/30/19 12/22/19 History montelukast 10 mg PO HS 07/30/19 12/22/19 History hydrocortisone 2.5 % topical cream 1 appln TOP BID PRN #28.35 gm 09/06/19 12/22/19 Rx pantoprazole 40 mg tablet,delayed 40 mg PO QAM #90 tab 09/06/19 12/22/19 Rx release ofloxacin 10 drp OTIC (EAR) UD PRN 10/27/19 12/22/19 History ondansetron 4 mg disintegrating 4 mg PO Q8H PRN #30 tab 11/08/19 12/22/19 Rx tablet potassium chloride 20 mEq 20 meq PO BIDM #180 tab 12/04/19 12/22/19 Rx tablet,extended release(part/cryst) azelastine 137 mcg (0.1 %) nasal 1 spray INTNAS BID PRN #30 ml 12/07/19 12/22/19 Rx spray aerosol dicyclomine 10 mg capsule 10 mg PO BID PRN #180 cap 12/07/19 12/22/19 Rx Eliquis 5 mg PO BID 12/11/19 12/22/19 History cephalexin [Keflex] 500 mg PO Q6H 14 Days #56 cap 12/13/19 12/22/19 Rx oxycodone 5 mg PO Q4H PRN #30 tab 12/13/19 12/22/19 Rx hydromorphone 2 mg tablet 2 mg PO Q6H PRN #20 tab 12/18/19 12/22/19 Rx acetaminophen 325 mg tablet 650 mg PO Q4H PRN #90 tab 12/19/19 12/22/19 Rx furosemide 40 mg tablet 40 mg PO QAM #90 tab 12/19/19 12/22/19 Rx tramadol 50 mg tablet 50 mg PO Q12H PRN 30 Days #30 tab 12/19/19 12/22/19 Rx Past Med/Surg History Medical History Crohns disease hx ileostomy and subsequent reversal, previously had multiple SBOs, on Humira- stable "in remission" Diverticulosis Environmental allergies GERD (gastroesophageal reflux disease) controlled History of CHF (congestive heart failure) remote hx, s/p ECHO 06/2019 and DSE 10/2018 History of pulmonary embolism 3+ years ago (DVT, PE) in setting of sedentary lifestyle, on eliquis Hx of deep venous thrombosis 3+ years ago (DVT, PE) in setting of sedentary lifestyle, on eliquis Hyperlipidemia Insomnia Internal hemorrhoids Migraine headache Morbid obesity Nonalcoholic steatohepatitis (BOOTHE) Surgical History H/O colonoscopy History of bilateral tubal ligation History of [place]09/03/16[place] [facility] [place] of esophagogastroduodenoscopy (EGD) 04/03/18 - Grade 1 View, MAC #3, ETT #7.0, HiLo Oral 10/29/17 - Grade 2 View, MAC #3, ETT #7.5, HiLo Oral History of left knee replacement Left TKA: 08/16/18: SAB x1 attempt at L3-L4 + PNB at [facility] History of myringotomy History of reversal of ileostomy [place] [facility] [place] of tooth extraction S/P laparoscopic hernia repair (05/21/19) diag lap, YAIR, Lap liver biopsy, lap assisted small bowel resection, open abd wall hernia repair Status post panniculectomy (~05/18/18) 05/18/18 - Grade 1 View, MAC #3, ETT #7.0 Status post right knee replacement (~12/2019) Family History Mother , [place] at 44 y/o Myocardial infarction Sister Anxiety Breast cancer Father Hypertension Other No family history of adverse response to anesthesia Denies family history of Ovarian cancer Prostate cancer Lung cancer Colorectal cancer Social History Smoking Status: Current every day smoker packs per day: 5; Cigarettes Per Day: 8; Second Hand Exposure: No; Do You Dip or Chew Tobacco: No; Tobacco Cessation Education Requested by Patient: No Hx Alcohol Use: No Hx Substance Use: No Preferred Language: Georgian Communication Ability: Effective Visual Impairment: No Limitations Hearing Ability: Normal Workplace Rehabilitation Officer Required: No Beliefs That Will Affect Care: None marital status: / Current Living Situation: Alone Current Living Situation Comment: son lives close current occupational status: disabled Other Information That Helps Us Care for You: No Feels Safe at Home: Yes Safety Concerns: Feels Safe At This Time Childhood Exposure to Second-Hand Smoke: No caffeine: No Dental Care, Regularly: Yes Physical Activity Frequency: 1-2 Times per Week Seatbelt Use: always Sunscreen Use: No Assistive Devices: Walker Review of Systems Review of Systems: The patient denies chest pain, palpitations, shortness of breath, dyspnea on exertion, cough, sore throat, fevers, chills, sweats, nausea, vomiting, diarrhea , constipation, abdominal pain, pelvic pain, blood in urine or stool, dysuria, urinary frequency or urgency, lightheadedness, dizziness, headache, memory loss, loss of consciousness, abnormal bruising or bleeding, imbalance, focal or generalized weakness, numbness or tingling in arms or left leg, generalized arthralgias or myalgias, back or neck pain, or night sweats. The review of systems is otherwise negative other than for that already noted above, and at least 10 systems have been reviewed. Physical Exam Physical Exam: The patient is awake, alert and oriented 3, well developed and well nourished, normocephalic and atraumatic, lying in bed and in no acute distress. HEENT--PERRL, EOMI, mucous membranes and oropharynx normal.. Neck--supple. No JVD. No bruits. Thyroid normal, trachea midline, no a denopathy. Heart--normal S1 and S2. No murmurs, rubs or gallops. Lungs--clear bilaterally, no respiratory distress, no accessory muscle use. Abdomen--normal bowel sounds and soft. Nontender. Nondistended. Morbidly obese Extremities--left lower extremity no cyanosis or clubbing. No edema. --Right lower extremity moderate erythema and warmth from top of kneecap to dorsum of foot. Trace to 1+ pitting edema Dermatologic--as above Neurologic--cranial nerves II through XII grossly intact. Rheumatologic--limited exam due to pain Psychiatric--normal affect. Results & Data Results & Data ([facility]) Vital Signs (Past 12 Hours) Vital Signs Temp Pulse Resp BP Pulse Ox 12/22/19 20:40 99.3 F 89 14 148/66 H 97 Laboratory Results Laboratory Results WBC 9.51 K/uL (4.8-10.8) 12/22/19: RBC 3.68 M/uL (4.2-5.4) L 12/22/19: Hgb 11.7 g/dL (12.0-16.0) L 12/22/19: Hct 34.3 % (37-47) L 12/22/19: MCV 93.2 fL (80-100) 12/22/19 21: MCH 31.8 pg (25-34) 12/22/19: MCHC 34.1 g/dL (32-36) 12/22/19: RDW Std Deviation 47.6 fL (36.4-46.3) H 12/22/19: RDW Coeff of Brooke 14.0 % (11.5-14.5) 12/22/19: Plt Count 334 K/uL (130-400) 12/22/19: MPV 9.6 fL (7.4-10.4) 12/22/19: Immature Gran % (Auto) 0.5 % 12/22/19: Neut % (Auto) 64.9 % 12/22/19: Lymph % (Auto) 22.7 % 12/22/19: [place] % (Auto) 7.9 % 12/22/19: Eos % (Auto) 3.7 % 12/22/19: Baso % (Auto) 0.3 % 12/22/19: Neut # (Auto) 6.17 K/uL (1.4-6.5) 12/22/19 21: Lymph # (Auto) 2.16 K/uL (1.2-3.4) 12/22/19: [place] # (Auto) 0.75 K/uL (0.11-0.59) H 12/22/19 21: Eos # (Auto) 0.35 K/uL (0-0.5) 12/22/19: Baso # (Auto) 0.03 K/uL (0-0.2) 12/22/19: Immature Gran # (Auto) 0.05 K/uL (0.00-0.02) H 12/22/19: PT 10.8 Seconds (9.0-12.0) 12/22/19: INR 1.0 (0.9-1.1) 12/22/19: APTT 34.0 Seconds (21.0-31.0) H 12/22/19: PTT Ratio 1.2 12/22/19: Sodium 139 mmol/L (136-145) 12/22/19: Potassium 4.1 mmol/L (3.5-5.1) 12/22/19: Chloride 109 mmol/L (98-107) H 12/22/19: Carbon Dioxide 25 mmol/L (21-32) 12/22/19: Anion Gap 5.0 (3-11) 12/22/19: BUN 19 mg/dl (7-18) H 12/22/19: Creatinine 0.98 mg/dl (0.6-1.2) 12/22/19: Est Cr Clr Drug Dosing 75.5 ml/min 12/22/19: Est GFR ( Amer) 70.2 12/22/19: Est GFR (Non-Af Amer) 60.5 12/22/19: BUN/Creatinine Ratio 19.5 (10-20) 12/22/19: Glucose 89 mg/dl (70-99) 12/22/19: Lactate 1.5 mmol/L (0.4-2.0) 12/22/19: Calcium 9.2 mg/dl (8.5-10.1) 12/22/19 21: Magnesium 1.9 mg/dl (1.8-2.4) 12/22/19 21:29 Total Bilirubin 0.4 mg/dl (0.2-1) 12/22/19 21:29 AST 13 U/L (15-37) L 12/22/19 21:29 ALT 17 U/L (12-78) 12/22/19 21:29 Alkaline Phosphatase 100 U/L (45-117) 12/22/19 21:29 Total Protein 7.0 gm/dl (6.4-8.2) 12/22/19 21: Albumin 2.9 gm/dl (3.4-5.0) L 12/22/19 21: Globulin 4.1 gm/dl (2.5-4.0) H 12/22/19 21:29 Albumin/Globulin Ratio 0.7 (0.9-2) L 12/22/19 21:29 Urine Color Yellow 12/23/19 02:40 Urine Appearance Clear (Clear) 12/23/19 02:40 Urine pH 5.0 (4.5-7.5) 12/23/19 02:40 Ur Specific [place] 1.014 (1.000-1.030) 12/23/19 02:40 Urine Protein Negative (Negative) 12/23/19 02:40 Urine Glucose (UA) Negative (Negative) 12/23/19 02:40 Urine Ketones Negative (Negative) 12/23/19 02:40 Urine Blood Negative (Negative) 12/23/19 02:40 Urine Nitrite Negative (Negative) 12/23/19 02:40 Urine Bilirubin Negative (Negative) 12/23/19 02:40 Urine Urobilinogen Negative (Negative) 12/23/19 02:40 Ur Leukocyte Esterase Negative (Negative) 12/23/19 02:40 COVID-19 Eval Order Covid19 IDNow [facility] 12/23/19 01:13 SARS-CoV-2, RNA, NAAT NEGATIVE (NEGATIVE) 12/23/19 01:13 Code Status & VTE Plan Code Status Full code VTE Prophylaxis Plan VTE Prophylaxis will be ordered: Yes PG Care Time/CCT Total # of Minutes Spent Total Time Spent with Patient: Total time spent is greater than 50% in coordination of care (as documented) at patient's floor/unit and/or counseling patient: Coding Level of Care Code 08917 Initial Inpt Care Lvl 3 Diagnoses Cellulitis of right lower leg L03.115 Immunocompromised D84.9 S/P total knee replacement Z96.651 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
--- NOTE | 2019-12-23 01:37 | Emergency Department Note ---
History of Present Illness General Chief complaint: Knee Injury/Pain Time Seen by Provider: 12/22/19 21:02 Source: patient Mode of arrival: ambulatory Limitations: no limitations History of Present Illness Maximum Pain Intensity: 2 This patient comes in after having pain and redness and swelling in the right leg. She is postop right knee replacement by Dr. Camacho on December 10. She is wearing compression hose. She noticed she had start having significant pain last night and took down the hose and was red. No numbness or weakness in the foot. She had temperature at home of 101 but took some Tylenol and it has come down. She says is very tender. She is on Eliquis for history of previous DVT. She had no fall or injury. No chest pain or shortness of breath. She was tested negative for Covid before her surgery and has had no known Covid exposure or Covid-like symptoms since then. No trauma or injury. She is on Humira for Crohn's disease Home Medications Home Medications Medication Instructions Recorded Confirmed Type calcium carbonate [Calcium 500] 500 mg PO QAM 04/03/18 12/22/19 History cholecalciferol (vitamin D3) 25 5,000 units PO QAM cap 07/13/18 12/22/19 History mcg (1,000 unit) capsule albuterol sulfate [Ventolin HFA] 2 puffs INH Q6H PRN #18 gm 10/18/18 12/22/19 Rx cyanocobalamin (vitamin B-12) 100 100 mcg PO QAM 11/13/18 12/22/19 History mcg tablet Humira 40 mg SUBCUT UD #6 ml 06/13/19 12/22/19 Rx atorvastatin 20 mg tablet 20 mg PO QAM #90 tab 06/19/19 12/22/19 Rx diclofenac sodium [Voltaren] 4 g EXT QID PRN 07/30/19 12/22/19 History montelukast 10 mg PO HS 07/30/19 12/22/19 History hydrocortisone 2.5 % topical cream 1 appln TOP BID PRN #28.35 gm 09/06/19 12/22/19 Rx pantoprazole 40 mg tablet,delayed 40 mg PO QAM #90 tab 09/06/19 12/22/19 Rx release ofloxacin 10 drp OTIC (EAR) UD PRN 10/27/19 12/22/19 History ondansetron 4 mg disintegrating 4 mg PO Q8H PRN #30 tab 11/08/19 12/22/19 Rx tablet potassium chloride 20 mEq 20 meq PO BIDM #180 tab 12/04/19 12/22/19 Rx tablet,extended release(part/cryst) azelastine 137 mcg (0.1 %) nasal 1 spray INTNAS BID PRN #30 ml 12/07/19 12/22/19 Rx spray aerosol dicyclomine 10 mg capsule 10 mg PO BID PRN #180 cap 12/07/19 12/22/19 Rx Eliquis 5 mg PO BID 12/11/19 12/22/19 History cephalexin [Keflex] 500 mg PO Q6H 14 Days #56 cap 12/13/19 12/22/19 Rx oxycodone 5 mg PO Q4H PRN #30 tab 12/13/19 12/22/19 Rx hydromorphone 2 mg tablet 2 mg PO Q6H PRN #20 tab 12/18/19 12/22/19 Rx acetaminophen 325 mg tablet 650 mg PO Q4H PRN #90 tab 12/19/19 12/22/19 Rx furosemide 40 mg tablet 40 mg PO QAM #90 tab 12/19/19 12/22/19 Rx tramadol 50 mg tablet 50 mg PO Q12H PRN 30 Days #30 tab 12/19/19 12/22/19 Rx Allergies Allergy/AdvReac Type Severity Reaction Status Date / Time duloxetine Allergy Nausea Verified 12/11/19 06:33 Past Med/Surg History Medical History Crohns disease hx ileostomy and subsequent reversal, previously had multiple SBOs, on Humira- stable "in remission" Diverticulosis Environmental allergies GERD (gastroesophageal reflux disease) controlled History of CHF (congestive heart failure) remote hx, s/p ECHO 06/2019 and DSE 10/2018 History of pulmonary embolism 3+ years ago (DVT, PE) in setting of sedentary lifestyle, on eliquis Hx of deep venous thrombosis 3+ years ago (DVT, PE) in setting of sedentary lifestyle, on eliquis Hyperlipidemia Insomnia Internal hemorrhoids Migraine headache Morbid obesity Nonalcoholic steatohepatitis (BOOTHE) Surgical History H/O colonoscopy History of bilateral tubal ligation History of colon resection (09/03/16) 09/03/16 [facility] History of esophagogastroduodenoscopy (EGD) 04/03/18 - Grade 1 View, MAC #3, ETT #7.0, HiLo Oral 10/29/17 - Grade 2 View, MAC #3, ETT #7.5, HiLo Oral History of left knee replacement Left TKA: 08/16/18: SAB x1 attempt at L3-L4 + PNB at [facility] History of myringotomy History of reversal of ileostomy 08/24/17 [facility] History of tooth extraction S/P laparoscopic hernia repair (05/21/19) diag lap, YAIR, Lap liver biopsy, lap assisted small bowel resection, open abd wall hernia repair Status post panniculectomy (~05/18/18) 05/18/18 - Grade 1 View, MAC #3, ETT #7.0 Status post right knee replacement (~12/2019) Family History Mother , [place] at 44 y/o Myocardial infarction Sister Anxiety Breast cancer Father Hypertension Other No family history of adverse response to anesthesia Denies family history of Ovarian cancer Prostate cancer Lung cancer Colorectal cancer Social History Smoking Status: Never smoker packs per day: 5; Cigarettes Per Day: 7-8; Second Hand Exposure: No; Hx Alcohol Use: No Hx Substance Use: No Preferred Language: Thai Communication Ability: Effective Visual Impairment: No Limitations Hearing Ability: Normal Globe Changer Required: No Beliefs That Will Affect Care: None marital status: / Current Living Situation: Alone Current Living Situation Comment: SON LIVES VERY CLOSE current occupational status: disabled Feels Safe at Home: Yes Childhood Exposure to Second-Hand Smoke: No caffeine: No Dental Care, Regularly: Yes Physical Activity Frequency: 1-2 Times per Week Seatbelt Use: always Sunscreen Use: No Assistive Devices: Walker Review of Systems A total of 10 systems reviewed and were otherwise negative Physical Exam Vital Signs Vital Signs - 24 hr 12/22/19 20:40 Temperature 37.4 C Temperature Source Oral Pulse Rate 89 Respiratory Rate 14 Respiratory Effort / Characteristics Non-Labored Spontaneous Respiratory Depth Normal Blood Pressure 148/66 H Blood Pressure Mean 93 Pulse Oximetry 97 Oxygen Delivery Method Room Air Sepsis Recent Fever Within 48 Hours No Sepsis New/Unexplained Change in Mental Status No Sepsis Action Taken by Nursing No Action Required General: Well developed well nourished middle-age female who appears in no acute distress, breathing comfortably on room air. Normal speech HEENT: Normal cephalic atraumatic. Pupils are equal round and reactive to light. Extraocular movements are intact. Oropharynx is pink with moist mucous membranes. No swelling of the mouth lips or tongue. Neck: Supple with a midline trachea. No meningeal signs or stiffness, no JVD or bruits. No Stridor. Chest: Clear to auscultation bilaterally. No wheezes or rhonchi. No increased work of breathing. Heart: Regular rate and rhythm without murmurs or gallops. Abdomen: Soft nontender, nondistended without rebound guarding or rigidity. Extremities: No cyanosis clubbing. She has postop incision which is intact without drainage. The lower extremity below that in the calf and extending towards the knee and foot are red and warm and tender. She has normal motor sensation distally. Spine/Back. Non tender to palpation. No CVA tenderness Skin: Good turgor without rashes. Neurologic exam: Cranial nerves two through 12 are intact. Motor and sensation are intact and symmetrical throughout. Course Administered Medications Vancomycin HCl 2,500 mg/ (Sodium Chloride) 550 mls @ 200 mls/hr IV NOW ONE Stop: 12/23/19 03:15 Last Admin: 12/23/19 01:13 Dose: 200 mls/hr Documented by: [id number] Discontinued Medications Acetaminophen (Acetaminophen 500 Mg Tab) 500 mg PO NOW STA Stop: 12/22/19 22:39 Last Admin: 12/22/19 22:48 Dose: 500 mg Documented by: [id number] Hydromorphone HCl (Hydromorphone Inj 0.5 Mg/0.5 Ml Syr) 0.5 mg IV NOW STA Stop: 12/22/19 22:39 Last Admin: 12/22/19 22:48 Dose: 0.5 mg Documented by: [id number] Piperacillin Sod/Tazobactam Sod (Zosyn) 4.5 gm in 120 mls @ 240 mls/hr IV NOW ONE Stop: 12/22/19 21:41 Last Infusion: 12/22/19 23:30 Dose: 0 mls/hr Documented by: [id number] Admin: 12/22/19 22:48 Dose: 240 mls/hr Documented by: [id number] Sodium Chloride (Nss 1000ml) 1,000 mls @ 999 mls/hr IV .Q1H1M ONE Stop: 12/22/19 22:12 Last Infusion: 12/22/19 23:52 Dose: 0 mls/hr Documented by: [id number] Admin: 12/22/19 22:47 Dose: 999 mls/hr Documented by: [id number] Medical Decision Making Differential Diagnosis Cellulitis, sepsis, DVT, postop complication, electrolyte or metabolic abnormality Medical Records Attestation: I reviewed the patient's medical records. Home Medications Current Medication List: was personally reviewed by me Laboratory Data Attestation: I reviewed the patient's lab results. Result diagrams: 12/22/19 21:29 12/22/19 21:29 Lab Results 12/22/19 12/22/19 12/22/19 Range/Units 21:29 21:29 21:29 WBC 9.51 (4.8-10.8) K/uL RBC 3.68 L (4.2-5.4) M/uL Hgb 11.7 L (12.0-16.0) g/dL Hct 34.3 L (37-47) % MCV 93.2 (80-100) fL MCH 31.8 (25-34) pg MCHC 34.1 (32-36) g/dL RDW Std Deviation 47.6 H (36.4-46.3) fL RDW Coeff of Brooke 14.0 (11.5-14.5) % Plt Count 334 (130-400) K/uL MPV 9.6 (7.4-10.4) fL Immature Gran % (Auto) 0.5 % Neut % (Auto) 64.9 % Lymph % (Auto) 22.7 % Arthur % (Auto) 7.9 % Eos % (Auto) 3.7 % Baso % (Auto) 0.3 % Neut # (Auto) 6.17 (1.4-6.5) K/uL Lymph # (Auto) 2.16 (1.2-3.4) K/uL Arthur # (Auto) 0.75 H (0.11-0.59) K/uL Eos # (Auto) 0.35 (0-0.5) K/uL Baso # (Auto) 0.03 (0-0.2) K/uL Immature Gran # (Auto) 0.05 H (0.00-0.02) K/uL PT 10.8 (9.0-12.0) Seconds INR 1.0 (0.9-1.1) APTT 34.0 H (21.0-31.0) Seconds PTT Ratio 1.2 Sodium 139 (136-145) mmol/L Potassium 4.1 (3.5-5.1) mmol/L Chloride 109 H (98-107) mmol/L Carbon Dioxide 25 (21-32) mmol/L Anion Gap 5.0 (3-11) BUN 19 H (7-18) mg/dl Creatinine 0.98 (0.6-1.2) mg/dl Est Cr Clr Drug Dosing 75.5 ml/min Est GFR ( Amer) 70.2 Est GFR (Non-Af Amer) 60.5 BUN/Creatinine Ratio 19.5 (10-20) Glucose 89 (70-99) mg/dl Lactate (0.4-2.0) mmol/L Calcium 9.2 (8.5-10.1) mg/dl Magnesium 1.9 (1.8-2.4) mg/dl Total Bilirubin 0.4 (0.2-1) mg/dl AST 13 L (15-37) U/L ALT 17 (12-78) U/L Alkaline Phosphatase 100 (45-117) U/L Total Protein 7.0 (6.4-8.2) gm/dl Albumin 2.9 L (3.4-5.0) gm/dl Globulin 4.1 H (2.5-4.0) gm/dl Albumin/Globulin Ratio 0.7 L (0.9-2) COVID-19 Eval Order 12/22/19 12/23/19 Range/Units 21:29 01:13 WBC (4.8-10.8) K/uL RBC (4.2-5.4) M/uL Hgb (12.0-16.0) g/dL Hct (37-47) % MCV (80-100) fL MCH (25-34) pg MCHC (32-36) g/dL RDW Std Deviation (36.4-46.3) fL RDW Coeff of Brooke (11.5-14.5) % Plt Count (130-400) K/uL MPV (7.4-10.4) fL Immature Gran % (Auto) % Neut % (Auto) % Lymph % (Auto) % Arthur % (Auto) % Eos % (Auto) % Baso % (Auto) % Neut # (Auto) (1.4-6.5) K/uL Lymph # (Auto) (1.2-3.4) K/uL Arthur # (Auto) (0.11-0.59) K/uL Eos # (Auto) (0-0.5) K/uL Baso # (Auto) (0-0.2) K/uL Immature Gran # (Auto) (0.00-0.02) K/uL PT (9.0-12.0) Seconds INR (0.9-1.1) APTT (21.0-31.0) Seconds PTT Ratio Sodium (136-145) mmol/L Potassium (3.5-5.1) mmol/L Chloride (98-107) mmol/L Carbon Dioxide (21-32) mmol/L Anion Gap (3-11) BUN (7-18) mg/dl Creatinine (0.6-1.2) mg/dl Est Cr Clr Drug Dosing ml/min Est GFR ( Amer) Est GFR (Non-Af Amer) BUN/Creatinine Ratio (10-20) Glucose (70-99) mg/dl Lactate 1.5 (0.4-2.0) mmol/L Calcium (8.5-10.1) mg/dl Magnesium (1.8-2.4) mg/dl Total Bilirubin (0.2-1) mg/dl AST (15-37) U/L ALT (12-78) U/L Alkaline Phosphatase (45-117) U/L Total Protein (6.4-8.2) gm/dl Albumin (3.4-5.0) gm/dl Globulin (2.5-4.0) gm/dl Albumin/Globulin Ratio (0.9-2) COVID-19 Eval Order Covid19 [facility] Imaging Data Radiologist's Impression: Stat rad read: ultrasound of right lower extremity: No evidence of DVT. Soft tissue edema. ECG Data Attestation: I personally reviewed and interpreted this ECG as follows: Indication: + weakness and + other (Infection/sepsis) Rate (beats per minute): 82 Rhythm: + normal sinus ECG Intervals/blocks: + Normal QRS, + Normal QT and + Normal CA ECG [place]: + Normal ECG ST segments: + Normal ST segments ECG Findings: no PACs and no PVCs Comparison ECG Date: from (06/13/2019) [facility] Narrative This patient comes in as described above. she is postop knee replacement. Her right lower extremity is diffusely red below and extending towards the knee. She is neurologically neurovascular intact. there is no compartment syndrome. She is afebrile here but a temperature 101 at home and is immunocompromise on Humira. She also took Tylenol. IV access established. blood cultures were obtained a full sepsis work-up was obtained. Her white count lactic acid were not significantly elevated. She did receive an IV fluid bolus as well as IV Zosyn and IV vancomycin for broad-spectrum skin coverage. Her ultrasound was negative and shows no evidence of DVT. I do think she needs to be admitted/observed for IV inpatient antibiotics and further treatment evaluation. I have consulted Dr. Hernández to see her in the ER for admission. Continuous cardiac monitoring. An order was placed in the EMR for continuous cardiac monitoring. The patient was noted to have a normal sinus rhythm with a pulse of 85. 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, Immunocompromised, S/P total knee replacement Forms Stand Alone Forms: My [employer] Prescriptions Prescriptions: No Action atorvastatin 20 mg tablet 20 mg PO QAM Qty: 90 RF: 3 pantoprazole 40 mg tablet,delayed release (DR/EC) 40 mg PO QAM Qty: 90 RF: 1 hydrocortisone 2.5 % cream 1 appln TOP BID PRN (Reason: Hemorrhoids) Qty: 28.35 RF: 0 Hold Instructions: duplicate therapy with shampoo ondansetron 4 mg tablet,disintegrating 4 mg PO Q8H PRN (Reason: Nausea And Vomiting) Qty: 30 RF: 0 potassium chloride 20 mEq tablet,ER particles/crystals 20 meq PO BIDM Qty: 180 RF: 1 azelastine 137 mcg (0.1 %) aerosol,spray 1 spray INTNAS BID PRN (Reason: Congestion) Qty: 30 RF: 3 dicyclomine 10 mg capsule 10 mg PO BID PRN (Reason: abdominal discomfort) Qty: 180 RF: 1 hydromorphone [Dilaudid] 2 mg tablet 2 mg PO Q6H PRN (Reason: pain) Qty: 20 RF: 0 tramadol 50 mg tablet 50 mg PO Q12H PRN (Reason: pain) 30 Days Qty: 30 RF: 0 acetaminophen [Mapap (acetaminophen)] 325 mg tablet 650 mg PO Q4H PRN (Reason: pain) Qty: 90 RF: 0 furosemide 40 mg tablet 40 mg PO QAM Qty: 90 RF: 1 cyanocobalamin (vitamin B-12) 100 mcg tablet 100 mcg PO QAM RF: 0 cholecalciferol (vitamin D3) [Vitamin D3] 1,000 unit capsule 5,000 units PO QAM RF: 0 calcium carbonate [Calcium 500] 500 mg calcium (1,250 mg) Tablet 500 mg PO QAM RF: 0 albuterol sulfate [Ventolin HFA] 90 mcg/actuation HFA aerosol inhaler 2 puffs INH Q6H PRN (Reason: shortness of breath or wheezing or cough) Qty: 18 RF: 0 Humira 40 mg/0.8 mL syringe kit 40 mg SUBCUT UD Qty: 6 RF: 3 montelukast 10 mg tablet 10 mg PO HS RF: 0 diclofenac sodium [Voltaren] 1 % gel 4 g EXT QID PRN (Reason: Pain) RF: 0 ofloxacin 0.3 % drops 10 drp otic (ear) UD PRN (Reason: ud) RF: 0 Eliquis 5 mg tablet 5 mg PO BID RF: 0 oxycodone 5 mg Tablet 5 mg PO Q4H PRN (Reason: pain) Qty: 30 RF: 0 cephalexin [Keflex] 500 mg capsule 500 mg PO Q6H 14 Days Qty: 56 RF: 0 Discharge Problem: Crohns disease Qualifiers: Gastrointestinal tract location: unspecified location Digestive disease complication type: unspecified complication Qualified Code(s): K50.919 - Crohn's disease, unspecified, with unspecified complications S/P total knee replacement Qualifiers: Laterality: right Qualified Code(s): Z96.651 - Presence of right artificial knee joint
[2019-12-23] MEDS ORDERED: ONDANSETRON INJ 2 MG/ML 2 ML VIAL IV PRN (02:37)
[2019-12-23] MEDS ORDERED: MAGNESIUM HYDROXIDE SUSP 30 ML UDC PO PRN (02:37)
[2019-12-23] MEDS ORDERED: PIPERACILL/TAZOBAC CONSULT ACTIVE PRN (02:37)
[2019-12-23] MEDS ORDERED: VANCOMYCIN HCL 1,000 MG/270 ML BAG IV SCH (02:37)
[2019-12-23] MEDS ORDERED: ALUMINUM/MAGNESIUM SUSP 30 ML UDC PO PRN (02:37)
[2019-12-23] MEDS ORDERED: DICLOFENAC SOD 1% GEL 100 GM TUBE EXT PRN (02:37)
[2019-12-23] MEDS ORDERED: oxyCODONE HCL IR 5 MG TAB (IMMEDIATE RELEASE) PO PRN (02:48)
[2019-12-23 03:05] LABS: Appearance Urine Clear (Clear); Bilirubin Urine Negative (Negative); Blood Urine Negative (Negative); Color Urine Yellow; Glucose Urine UA Negative (Negative); Ketones Urine Negative (Negative); Leukocyte Esterase Urine Negative (Negative); Nitrite Urine Negative (Negative); Protein Urine Negative (Negative); Specific Gravity Urine 1.014 (1.000-1.030); Urobilinogen Urine Negative (Negative)
[2019-12-23] MEDS: ACETAMINOPHEN 325 MG TAB PO PRN ×5 (03:07→21:51)
[2019-12-23] MEDS: APIXABAN 5 MG TABLET PO SCH ×3 (03:08→19:40)
[2019-12-23] MEDS: PIPERACILLIN/TAZOBACTAM 4.5 GM in DEXTROSE 5% 100 ML IV SCH ×3 (04:13→19:39)
[2019-12-23 07:09] LABS: Basophils # (auto) 0.03 K/uL (0-0.2); Basophils % (auto) 0.5 %; Eosinophils # (auto) 0.28 K/uL (0-0.5); Eosinophils % (auto) 4.3 %; Hemoglobin 10.8 g/dL (12.0-16.0); Immature Granulocytes # (auto) 0.04 K/uL (0.00-0.02); Immature Granulocytes % (auto) 0.6 %; Lymphocytes % (auto) 24.6 %; Mean Corpuscular Hgb Conc 32.7 g/dL (32-36); Mean Corpuscular Volume 94.8 fL (80-100); Mean Platelet Volume 9.5 fL (7.4-10.4); Monocytes # (auto) 0.57 K/uL (0.11-0.59); Monocytes % (auto) 8.8 %; Neutrophils # (auto) 3.98 K/uL (1.4-6.5); Neutrophils % (auto) 61.2 %; Platelet Count 312 K/uL (130-400); RDW Coefficient of Variation 14.4 % (11.5-14.5); RDW Standard Deviation 49.4 fL (36.4-46.3); Red Blood Count 3.48 M/uL (4.2-5.4)
[2019-12-23 07:39] LABS: Albumin Level 2.5 gm/dl (3.4-5.0); BUN Creatinine Ratio 16.4 (10-20); Calcium 8.6 mg/dl (8.5-10.1); Creatinine Clr Calc Pharmacy 63.2 ml/min; Est GFR (African American) 58.4; Est GFR (Non-African American) 50.4; Phosphorus 3.8 mg/dl (2.5-4.9); Potassium 4.1 mmol/L (3.5-5.1)
--- NOTE | 2019-12-23 08:10 | Ultrasound Report ---
US venous doppler LE RT HISTORY: 64 years-old Female eval for dvt acute pain and swelling of the right lower extremity COMPARISON: Duplex venous Doppler study 11/19/2018 TECHNIQUE: Multiple real-time sonographic images of the right lower extremity deep venous structures were obtained assessing grayscale appearance, color and spectral flow FINDINGS: Normal flow, compressibility, phasicity and augmentation of the right lower extremity deep venous str uctures. Subcutaneous edema is noted within the right popliteal distribution. IMPRESSION: No sonographic evidence of deep venous thrombosis. ACT 112: Negative or not required by law. The above report was generated using voice recognition software. It may contain grammatical, syntax o r spelling errors. Electronically signed by: Neil Bryan M.D. 12/23/2019 8:08 AM
--- NOTE | 2019-12-23 09:31 | XRay Report ---
XR chest 1V portable HISTORY: SEPSIS COMPARISON: Chest 06/13/2019. FINDINGS: The lungs are clear. Cardiac silhouette is top normal in size. No pleural effusions. No pne umothorax. IMPRESSION: No acute process. ACT 112: Negative or not required by law. Electronically signed by: Deejay Jin M.D. 12/23/2019 9:29 AM
[2019-12-23] MEDS: ATORVASTATIN 20 MG TAB PO SCH (09:36)
[2019-12-23] MEDS: POTASSIUM CHLORIDE CRTAB 20 MEQ TABCR PO SCH ×2 (09:36→16:50)
[2019-12-23] MEDS: FUROSEMIDE 40 MG TAB PO SCH (09:37)
[2019-12-23] MEDS: PANTOprazole 40 MG TAB PO SCH (09:37)
[2019-12-23] MEDS: CALCIUM CARBONATE 1250MG TAB PO SCH (09:37)
[2019-12-23] MEDS: CHOLECALCIFEROL 1,000 UNITS 25 MCG TAB PO SCH (09:38)
[2019-12-23] MEDS: CYANOCOBALAMIN (VITAMIN B-12) 100 MCG TABLET PO SCH (09:38)
[2019-12-23] MEDS: HYDROmorphone HCL 2 MG TAB PO PRN ×3 (10:24→23:44)
--- NOTE | 2019-12-23 10:53 | Pharmacy Report ---
Pharmacy Abx Initial Consult - Date of Service December 23, 2019 - Pharmacy Dosing Scope Date of Consult: 12/23/19 Consultation requested by: Dr. Navas Pharmacy is consulted to initiate vancomycin and Zosyn IV dosing therapy, order appropriate labs and adjust drug dose/frequency. - Subjective The patient is a 64 year old F admitted on 12/23/19 00:47. - Objective Height: 5 ft 5 in Weight: 117.8 kg Vital Signs (Past 12hrs): Vital Signs Temp Pulse Pulse Resp BP BP Pulse Ox 12/23/19 07:27 37 C 69 18 122/71 95 12/23/19 02:32 36.8 C 97 H 24 152/65 H 97 12/23/19 02:00 87 18 123/69 97 12/23/19 01:30 83 19 136/71 96 12/23/19 01:00 87 20 122/78 96 12/23/19 00:30 73 25 H 125/69 95 12/23/19 00:00 74 25 H 111/56 L 96 12/22/19 23:30 85 20 115/57 L 96 12/22/19 23:20 80 25 H 85/56 L 97 12/22/19 23:19 81 27 H 97 Lab Results (24hrs): Laboratory Tests (24 Hours) 12/23/19 12/23/19 12/22/19 06:33 06:33 21:29 WBC 6.50 Neut # (Auto) 3.98 Creatinine 1.14 0.98 Est Cr Clr Drug Dosing 63.2 75.5 12/22/19 21:29 WBC 9.51 Neut # (Auto) 6.17 Creatinine Est Cr Clr Drug Dosing Micro Results: 12/22/19 22:16 Aerobic Blood Culture - Pending Blood Anaerobic Blood Culture - Pending 12/22/19 21:29 Aerobic Blood Culture - Pending Blood Anaerobic Blood Culture - Pending - Risk Factors for Resistance * Immunocompromised (Humira) * Recent hospitalization (s/p right TKA 12/11/19) - Assessment & Plan Assessment 64 year old F receiving empiric vancomycin and Zosyn for treatment of right lower extremity cellulitis. Patient presented to ED with worsening pain, redness, swelling, and warmth of right knee down to dorsum of foot. Of note, patient is now s/p right TKA on 12/11/19. Patient was previously prescribed cephalexin prior to admission - now discontinued. Patient has been afebrile since admission with no leukocytosis. Renal function appears to be near baseline. Blood cultures x 2 ordered and pending. History of MSSA growing in abdominal cultures (July 2019). Plan Vancomycin IV * Estimated PK Parameters: Manuel 0.057 hr-1, t1/2 12 hr * Loading dose: 2500 mg (21 mg/kg) * Maintenance dose: 1250 mg IV (11 mg/kg) every 14 hours * Goal trough level for cellulitis : 10 to 15 mcg/mL * Trough level ordered for 12/25/19 Piperacillin/tazobactam * 4.5 g bolus administered over 30 minutes, then 4.5 g IV extended infusion every 8 hours for CrCl greater than 20 mL/min * Aggressive dosing selected due to BMI 35 or more Pharmacy will continue to follow and will adjust dose/frequency as necessary. Thank you.
[2019-12-23] MEDS: NICOTINE 14 MG/24 HR PATCH TD SCH (11:26)
--- NOTE | 2019-12-23 13:28 | Hospitalist Progress Note ---
Date of Service December 23, 2019 Assessment & Plan (1) Cellulitis of right lower leg: Cellulitis of right lower extremity- had been on Keflex outpatient - continue vancomycin IV and Zosyn IV per pharmacokinetic monitoring. (2) Immunocompromised: Broad-spectrum antibiotics as noted above. Patient takes Humira for IBD (3) S/P total knee replacement: Consult orthopedic surgery Dr. Camacho Acetaminophen 650 mg p.o. every 6 hours as needed mild pain or temperature Tramadol 50 mg p.o. every 4 hours as needed moderate pain Oxycodone changed to po dilaudid per outpatient regimen (4) senior living (current) use of anticoagulants: Long-term use of anticoagulants/history of DVT/history of PE- Continue apixaban 5 mg p.o. twice daily (5) History of pulmonary embolism: (6) CHF (congestive heart failure): Continue furosemide and potassium chloride (7) Nonalcoholic steatohepatitis (BOOTHE): Admission and Anticipated Discharge Date Admission Date: December 23, 2019 Subjective Ms. Freeman reports the erythema in her leg is improving as well as the pain. She has no other complaints. ROS Constitutional: no chills, aches, sweats or fever Respiratory: no sob,cough, sputum, or wheezing Cardiac: no chest pain, palpitations, edema, orthopnea or lightheadedness GI: no abdominal pain, nausea, vomiting, diarrhea or constipation : no dysuria or hesitancy Extremities: no joint pain or weakness Skin: see HPI All other systems reviewed and negative Physical Exam Physical Exam: General: no distress Eyes: normal inspection, PERLL Respiratory: chest non tender, clear to auscultation, normal breath sounds, no respiratory distress, no accessory muscle use Cardiac: regular rate and rhythm, no rub or gallop, no murmur, no edema, no jvd GI/: active bowel sounds, no abd pain or tenderness, soft, non distended Extremities: normal range of motion, normal strength, non tender Neuro/Psych: alert and oriented x 3, normal mood and affect Skin: normal color, dry, right leg with erythema and edema over right lou, minimal pain with palpation Results & Data Results & Data ([facility]) Vital Signs (Past 12 Hours) Vital Signs Temp Pulse Pulse Resp BP BP Pulse Ox 12/23/19 07:27 37 C 69 18 122/71 95 12/23/19 02:32 36.8 C 97 H 24 152/65 H 97 12/23/19 02:00 87 18 123/69 97 12/23/19 01:30 83 19 136/71 96 PG Care Time/CCT Total # of Minutes Spent Total Time Spent with Patient: Total time spent is greater than 50% in coordination of care (as documented) at patient's floor/unit and/or counseling patient: Coding Level of Care Code 21007 Subseq Hosp Care Lvl 2 Diagnoses Cellulitis of right lower leg L03.115 Immunocompromised D84.9 S/P total knee replacement Z96.651 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
[2019-12-23] MEDS: VANCOMYCIN HCL 1,250 MG in SODIUM CHLORIDE 0.9% 250 ML IV SCH (14:12)
[2019-12-23] MEDS: MONTELUKAST SODIUM 10 MG TABLET PO SCH (19:39)
[2019-12-24] MEDS: ACETAMINOPHEN 325 MG TAB PO PRN ×3 (02:07→17:24)
[2019-12-24] MEDS: DICYCLOMINE HCL 10 MG CAP PO PRN (04:17)
[2019-12-24] MEDS: VANCOMYCIN HCL 1,250 MG in SODIUM CHLORIDE 0.9% 250 ML IV SCH ×2 (04:18→17:24)
[2019-12-24] MEDS: PIPERACILLIN/TAZOBACTAM 4.5 GM in DEXTROSE 5% 100 ML IV SCH ×3 (04:18→21:04)
--- NOTE | 2019-12-24 06:31 | Electrocardiogram Report ---
Test Reason : Blood Pressure : / mmHG Vent. Rate : 082 BPM Atrial Rate : 082 BPM P-R Int : 194 ms QRS Dur : 066 ms QT Int : 364 ms P-R-T Axes : 032 012 023 degrees QTc Int : 425 ms Normal sinus rhythm Normal ECG When compared with ECG of 13-JUN-2019 12:38, No significant change was found Confirmed by Jaya Centeno ([id number]) on 12/24/2019 6:31:02 AM Referred By: REFERRED SELF Confirmed By:Jaya Centeno
[2019-12-24 06:43] LABS: Basophils # (auto) 0.03 K/uL (0-0.2); Basophils % (auto) 0.5 %; Eosinophils % (auto) 4.7 %; Hematocrit (blood only) 31.9 % (37-47); Hemoglobin 10.4 g/dL (12.0-16.0); Immature Granulocytes # (auto) 0.05 K/uL (0.00-0.02); Immature Granulocytes % (auto) 0.8 %; Lymphocytes # (auto) 1.87 K/uL (1.2-3.4); Lymphocytes % (auto) 29.2 %; Mean Corpuscular Hemoglobin 30.7 pg (25-34); Mean Corpuscular Hgb Conc 32.6 g/dL (32-36); Mean Corpuscular Volume 94.1 fL (80-100); Mean Platelet Volume 9.7 fL (7.4-10.4); Monocytes # (auto) 0.51 K/uL (0.11-0.59); Neutrophils # (auto) 3.64 K/uL (1.4-6.5); Neutrophils % (auto) 56.8 %; Platelet Count 313 K/uL (130-400); RDW Coefficient of Variation 14.1 % (11.5-14.5); RDW Standard Deviation 48.5 fL (36.4-46.3); Red Blood Count 3.39 M/uL (4.2-5.4)
--- NOTE | 2019-12-24 07:08 | Orthopedic Consultation ---
Date of Consultation December 24, 2019 Assessment & Plan (1) Cellulitis of right lower leg: She is doing with some cellulitis of her right leg. It seems to be located mostly around her distal tibia and ankle. The knee looks pretty good today. There is no redness around it. The nursing staff can remove the veronica so she does not have to come to the office for her scheduled appointment on Wednesday. I will now see her in the office in 4 weeks for our standard 6-week follow-up appointment. She will likely be able to be discharged soon on an oral antibiotic regimen. Present on Admission?: Yes History of Present Illness Reason for Consultation: Cellulitis right leg Attending Physician: Juan Francisco Mason, DO History of Present Illness Florencia is a pleasant 64-year-old female who underwent a right total knee arthroplasty about 2-1/2 weeks ago. She has done well since the surgery. She does not seem to be having too much pain in the right knee. She has been ambulating and progressing as expected. She started noticing some redness centrally located around her ankle. It was starting to creep up towards her knee replacement and over the dorsal aspect of her right foot. She saw her primary care physician and was started on Keflex. The redness did not improve quickly. She then went to the emergency room where a venous Doppler was negative for a DVT. She was then started on Zosyn and vancomycin and admitted to the hospital for cellulitis of her right lower extremity. She is on Eliquis for DVT prophylaxis. She does not complain of any significant knee pain. Her cellulitis has improved greatly since her admission. The redness is now centrally located around her right ankle. She has no other complaints. Allergies Allergy/AdvReac Type Severity Reaction Status Date / Time duloxetine Allergy Nausea Verified 12/11/19 06:33 Home Medications Home Medications Medication Instructions Recorded Confirmed Type calcium carbonate [Calcium 500] 500 mg PO QAM 04/03/18 12/22/19 History cholecalciferol (vitamin D3) 25 5,000 units PO QAM cap 07/13/18 12/22/19 History mcg (1,000 unit) capsule albuterol sulfate [Ventolin HFA] 2 puffs INH Q6H PRN #18 gm 10/18/18 12/22/19 Rx cyanocobalamin (vitamin B-12) 100 100 mcg PO QAM 11/13/18 12/22/19 History mcg tablet Humira 40 mg SUBCUT UD #6 ml 06/13/19 12/22/19 Rx atorvastatin 20 mg tablet 20 mg PO QAM #90 tab 06/19/19 12/22/19 Rx diclofenac sodium [Voltaren] 4 g EXT QID PRN 07/30/19 12/22/19 History montelukast 10 mg PO HS 07/30/19 12/22/19 History hydrocortisone 2.5 % topical cream 1 appln TOP BID PRN #28.35 gm 09/06/19 12/22/19 Rx pantoprazole 40 mg tablet,delayed 40 mg PO QAM #90 tab 09/06/19 12/22/19 Rx release ofloxacin 10 drp OTIC (EAR) UD PRN 10/27/19 12/22/19 History ondansetron 4 mg disintegrating 4 mg PO Q8H PRN #30 tab 11/08/19 12/22/19 Rx tablet potassium chloride 20 mEq 20 meq PO BIDM #180 tab 12/04/19 12/22/19 Rx tablet,extended release(part/cryst) azelastine 137 mcg (0.1 %) nasal 1 spray INTNAS BID PRN #30 ml 12/07/19 12/22/19 Rx spray aerosol dicyclomine 10 mg capsule 10 mg PO BID PRN #180 cap 12/07/19 12/22/19 Rx Eliquis 5 mg PO BID 12/11/19 12/22/19 History cephalexin [Keflex] 500 mg PO Q6H 14 Days #56 cap 12/13/19 12/22/19 Rx oxycodone 5 mg PO Q4H PRN #30 tab 12/13/19 12/22/19 Rx hydromorphone 2 mg tablet 2 mg PO Q6H PRN #20 tab 12/18/19 12/22/19 Rx acetaminophen 325 mg tablet 650 mg PO Q4H PRN #90 tab 12/19/19 12/22/19 Rx furosemide 40 mg tablet 40 mg PO QAM #90 tab 12/19/19 12/22/19 Rx tramadol 50 mg tablet 50 mg PO Q12H PRN 30 Days #30 tab 12/19/19 12/22/19 Rx Patient History Medical History Crohns disease hx ileostomy and subsequent reversal, previously had multiple SBOs, on Humira- stable "in remission" Diverticulosis Environmental allergies GERD (gastroesophageal reflux disease) controlled History of CHF (congestive heart failure) remote hx, s/p ECHO 06/2019 and DSE 10/2018 History of pulmonary embolism 3+ years ago (DVT, PE) in setting of sedentary lifestyle, on eliquis Hx of deep venous thrombosis 3+ years ago (DVT, PE) in setting of sedentary lifestyle, on eliquis Hyperlipidemia Insomnia Internal hemorrhoids Migraine headache Morbid obesity Nonalcoholic steatohepatitis (BOOTHE) Surgical History H/O colonoscopy History of bilateral tubal ligation History of colon resection (09/03/16) [place] [facility] [place] of esophagogastroduodenoscopy (EGD) 04/03/18 - Grade 1 View, MAC #3, ETT #7.0, HiLo Oral 10/29/17 - Grade 2 View, MAC #3, ETT #7.5, HiLo Oral History of left knee replacement Left TKA: 08/16/18: SAB x1 attempt at L3-L4 + PNB at [facility] History of myringotomy History of reversal of ileostomy 08/24/17 [facility] [place] History of tooth extraction S/P laparoscopic hernia repair (05/21/19) diag lap, YAIR, Lap liver biopsy, lap assisted small bowel resection, open abd wall hernia repair Status post panniculectomy (~05/18/18) 05/18/18 - Grade 1 View, MAC #3, ETT #7.0 Status post right knee replacement (~12/2019) Family History Mother , [place] at 44 y/o Myocardial infarction Sister Anxiety Breast cancer Father Hypertension Other No family history of adverse response to anesthesia Denies family history of Ovarian cancer Prostate cancer Lung cancer Colorectal cancer Social History Smoking Status: Current every day smoker packs per day: 5; Cigarettes Per Day: 8; Second Hand Exposure: No; Do You Dip or Chew Tobacco: No; Tobacco Cessation Education Requested by Patient: No Hx Alcohol Use: No Hx Substance Use: No Preferred Language: Vincentian Communication Ability: Effective Visual Impairment: No Limitations Hearing Ability: Normal Automatic Screwmaker Required: No Beliefs That Will Affect Care: None marital status: Unknown Current Living Situation: Alone Current Living Situation Comment: son lives close current occupational status: disabled Other Information That Helps Us Care for You: No Feels Safe at Home: Yes Safety Concerns: Feels Safe At This Time Childhood Exposure to Second-Hand Smoke: No caffeine: No Dental Care, Regularly: Yes Physical Activity Frequency: 1-2 Times per Week Seatbelt Use: always Sunscreen Use: No Assistive Devices: Walker Review of Systems Review of Systems: All systems reviewed & are unremarkable except as noted in HPI & below Physical Exam Physical Exam: On physical examination of the right knee the incision is clean and dry. I can easily flex her knee to about 90 degrees. She is lying with her knee in full extension. There is some cellulitis and redness located around the distal tibia of the right leg. There is no redness around the knee. There are no signs of a septic knee. She is neurovascular intact. Results & Data ([facility]) Vital Signs (Past 12 Hours) Vital Signs Temp Pulse Resp BP Pulse Ox 12/24/19 06:59 37.0 C 69 18 136/75 95 12/23/19 22:31 37.2 C 69 16 133/89 95 PG Care Time/CCT Total # of Minutes Spent Total Time Spent with Patient: Total time spent is greater than 50% in coordination of care (as documented) at patient's floor/unit and/or counseling patient: Coding Level of Care Code None Diagnoses Cellulitis of right lower leg L03.115
[2019-12-24] MEDS: HYDROmorphone HCL 2 MG TAB PO PRN ×3 (07:28→21:04)
[2019-12-24] MEDS: POTASSIUM CHLORIDE CRTAB 20 MEQ TABCR PO SCH ×2 (09:02→17:24)
[2019-12-24] MEDS: FUROSEMIDE 40 MG TAB PO SCH (09:03)
[2019-12-24] MEDS: APIXABAN 5 MG TABLET PO SCH ×2 (09:03→21:05)
[2019-12-24] MEDS: NICOTINE 14 MG/24 HR PATCH TD SCH (09:04)
[2019-12-24] MEDS: PANTOprazole 40 MG TAB PO SCH (09:04)
[2019-12-24] MEDS: ATORVASTATIN 20 MG TAB PO SCH (09:04)
[2019-12-24] MEDS: CALCIUM CARBONATE 1250MG TAB PO SCH (09:04)
[2019-12-24] MEDS: CHOLECALCIFEROL 1,000 UNITS 25 MCG TAB PO SCH (09:05)
[2019-12-24] MEDS: CYANOCOBALAMIN (VITAMIN B-12) 100 MCG TABLET PO SCH (09:05)
[2019-12-24 12:12] LABS: Albumin Level 2.6 gm/dl (3.4-5.0); BUN Creatinine Ratio 16.2 (10-20); Calcium 8.6 mg/dl (8.5-10.1); Creatinine Clr Calc Pharmacy 64.3 ml/min; Est GFR (African American) 59.7; Est GFR (Non-African American) 51.5; Phosphorus 3.6 mg/dl (2.5-4.9); Potassium 4.1 mmol/L (3.5-5.1)
--- NOTE | 2019-12-24 13:10 | Hospitalist Progress Note ---
Date of Service December 24, 2019 Assessment & Plan (1) Cellulitis of right lower leg: Cellulitis of right lower extremity- had been on Keflex outpatient - continue vancomycin IV and Zosyn IV Venouls doppler no dvt (2) Immunocompromised: Broad-spectrum antibiotics as noted above. Patient takes Humira for IBD (3) S/P total knee replacement: Consulted orthopedic surgery Dr. Camacho - no surgical intervention necessary. Nursing to remove veronica today. Acetaminophen 650 mg p.o. every 6 hours as needed mild pain or temperature Tramadol 50 mg p.o. 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 twice daily (5) History of pulmonary embolism: (6) CHF (congestive heart failure): Continue furosemide and potassium chloride (7) Nonalcoholic steatohepatitis (BOOTHE): Admission and Anticipated Discharge Date Admission Date: December 23, 2019 Subjective Ms. Freeman is having diarrhea. Her cellulitis is tender but improving. ROS Constitutional: no chills, aches, sweats or fever Respiratory: no sob,cough, sputum, or wheezing Cardiac: no chest pain, palpitations, edema, orthopnea or lightheadedness GI: no abdominal pain, nausea, vomiting, constipation : no dysuria or hesitancy Extremities: no joint pain or weakness Skin: see HPI All other systems reviewed and negative Physical Exam Physical Exam: General: no distress Eyes: normal inspection, PERLL Respiratory: chest non tender, clear to auscultation, normal breath sounds, no respiratory distress, no accessory muscle use Cardiac: regular rate and rhythm, no rub or gallop, no murmur, no edema, no jvd GI/: active bowel sounds, no abd pain or tenderness, soft, non distended Extremities: normal range of motion, normal strength, non tender Neuro/Psych: alert and oriented x 3, normal mood and affect Skin: normal color, dry, right leg erythema improving. Results & Data Results & Data ([facility]) Vital Signs (Past 12 Hours) Vital Signs Temp Pulse Resp BP Pulse Ox 12/24/19 06:59 37.0 C 69 18 136/75 95 PG Care Time/CCT Total # of Minutes Spent Total Time Spent with Patient: Total time spent is greater than 50% in coordination of care (as documented) at patient's floor/unit and/or counseling patient: Coding Level of Care Code 15721 Subseq Hosp Care Lvl 2 Diagnoses Cellulitis of right lower leg L03.115 Immunocompromised D84.9 S/P total knee replacement Z96.651 Laterality: right shelter (current) use of anticoagulants Z79.01 History of pulmonary embolism Z86.711 CHF (congestive heart failure) I50.9 Heart failure chronicity: acute Heart failure type: unspecified Nonalcoholic steatohepatitis (BOOTHE) K75.81 (1) S/P total knee replacement Laterality: right Qualified Code(s): Z96.651 - Presence of right artificial knee joint (2) CHF (congestive heart failure) Heart failure chronicity: acute Heart failure type: unspecified Qualified Code(s): I50.9 - Heart failure, unspecified
[2019-12-24] MEDS ORDERED: HYDROCORTISONE ACETATE 25 MG SUPP PR PRN (15:58)
[2019-12-24] MEDS: SACCHAROMYCES BOULARDII 250 MG CAP PO SCH (17:24)
[2019-12-24] MEDS: MONTELUKAST SODIUM 10 MG TABLET PO SCH (21:05)
[2019-12-24] MEDS: traMADol HCL 50 MG TABLET PO PRN (23:47)
[2019-12-25] MEDS: HYDROmorphone HCL 2 MG TAB PO PRN ×4 (03:36→21:29)
[2019-12-25] MEDS: PIPERACILLIN/TAZOBACTAM 4.5 GM in DEXTROSE 5% 100 ML IV SCH ×3 (04:10→20:07)
[2019-12-25] MEDS ORDERED: LOPERAMIDE HCL 2 MG CAP PO STA (05:56)
[2019-12-25] MEDS: ACETAMINOPHEN 325 MG TAB PO PRN ×4 (06:01→23:58)
[2019-12-25] MEDS ORDERED: VANCOMYCIN TROUGH ONE (07:30)
[2019-12-25 07:55] LABS: Basophils # (auto) 0.02 K/uL (0-0.2); Basophils % (auto) 0.3 %; Eosinophils # (auto) 0.36 K/uL (0-0.5); Eosinophils % (auto) 5.6 %; Hemoglobin 10.9 g/dL (12.0-16.0); Immature Granulocytes # (auto) 0.02 K/uL (0.00-0.02); Immature Granulocytes % (auto) 0.3 %; Lymphocytes # (auto) 1.52 K/uL (1.2-3.4); Lymphocytes % (auto) 23.5 %; Mean Corpuscular Hemoglobin 31.2 pg (25-34); Mean Corpuscular Volume 94.6 fL (80-100); Mean Platelet Volume 9.3 fL (7.4-10.4); Monocytes # (auto) 0.52 K/uL (0.11-0.59); Neutrophils # (auto) 4.03 K/uL (1.4-6.5); Neutrophils % (auto) 62.3 %; Platelet Count 318 K/uL (130-400); RDW Coefficient of Variation 14.1 % (11.5-14.5); RDW Standard Deviation 48.2 fL (36.4-46.3); Red Blood Count 3.49 M/uL (4.2-5.4); White Blood Count 6.47 K/uL (4.8-10.8)
[2019-12-25] MEDS: VANCOMYCIN HCL 1,250 MG in SODIUM CHLORIDE 0.9% 250 ML IV SCH (08:29)
[2019-12-25] MEDS: NICOTINE 14 MG/24 HR PATCH TD SCH (08:33)
[2019-12-25] MEDS: FUROSEMIDE 40 MG TAB PO SCH (08:35)
[2019-12-25] MEDS: POTASSIUM CHLORIDE CRTAB 20 MEQ TABCR PO SCH ×2 (08:36→17:14)
[2019-12-25] MEDS: CHOLECALCIFEROL 1,000 UNITS 25 MCG TAB PO SCH (08:36)
[2019-12-25] MEDS: PANTOprazole 40 MG TAB PO SCH (08:36)
[2019-12-25] MEDS: APIXABAN 5 MG TABLET PO SCH ×2 (08:37→20:12)
[2019-12-25] MEDS: CYANOCOBALAMIN (VITAMIN B-12) 100 MCG TABLET PO SCH (08:37)
[2019-12-25] MEDS: ATORVASTATIN 20 MG TAB PO SCH (08:38)
[2019-12-25] MEDS: CALCIUM CARBONATE 1250MG TAB PO SCH (08:38)
[2019-12-25] MEDS: SACCHAROMYCES BOULARDII 250 MG CAP PO SCH (08:39)
[2019-12-25 09:36] LABS: Albumin Level 2.6 gm/dl (3.4-5.0); BUN Creatinine Ratio 14.1 (10-20); Creatinine Clr Calc Pharmacy 55.8 ml/min; Est GFR (African American) 50.3; Est GFR (Non-African American) 43.4; Phosphorus 3.7 mg/dl (2.5-4.9)
[2019-12-25] MEDS: DICYCLOMINE HCL 10 MG CAP PO PRN ×2 (09:37→20:04)
--- NOTE | 2019-12-25 11:05 | Pharmacy Report ---
Pharmacy Abx Dose Short Note - Date of Service December 25, 2019 - Assessment & Plan Assessment * 64 year old F receiving VANCOMYCIN + ZOSYN for treatment RLE cellulitis w/ risk factors for resistant organism (immunocompromise, recent abx use, recent inpatient for orthopedic surgery) * Day # 3 of antimicrobial therapy * Cellulitis reported to be improving per Provider's assessment * Afebrile, no leukocytosis noted on CBC * No growth in blood cx's to date * Renal fxn appears stable, small increase over the last 3 days, UOP not being tracked closely Plan Vancomycin * Trough level of 18.1 mcg/mL is therapeutic. Level was drawn at the appropriate time. Prior doses were also hung on schedule. * Change to 1250 mg IV every 18 hours * Goal trough level for cellulitis : 10 to 20 mcg/mL, although 10 to 15 mcg/mL acceptable * Will repeat trough level in 2-3 days if therapy to continue Zosyn * eCrCl > 20, BMI > 35, continue 4.5gm ext-infusion IV Q 8 hrs * Could consider deescalation of abx therapy at this time given lack of growth in cultures and if positive clinical response continues. Of note, the combination of Vancomycin + Zosyn may be associated with a greater risk of nephrotoxicity vs Vancomycin + Cefepime or Daptomycin + Zosyn. Pharmacy will continue to follow and will adjust dose/frequency as necessary. Thank you.
[2019-12-25] MEDS ORDERED: FLUCONAZOLE 50 MG TAB PO ONE (17:57)
[2019-12-25] MEDS: HYDROCORTISONE HC 2.5% CRM 30GM TUBE EXT SCH ×2 (19:31→20:11)
[2019-12-25] MEDS: MONTELUKAST SODIUM 10 MG TABLET PO SCH (20:12)
[2019-12-26] MEDS ORDERED: VANCOMYCIN HCL 1,250 MG in SODIUM CHLORIDE 0.9% 250 ML IV SCH (02:00)
[2019-12-26] MEDS: HYDROmorphone HCL 2 MG TAB PO PRN ×3 (03:33→16:35)
[2019-12-26] MEDS: PIPERACILLIN/TAZOBACTAM 4.5 GM in DEXTROSE 5% 100 ML IV SCH ×2 (03:57→12:34)
--- NOTE | 2019-12-26 07:14 | Orthopedic Progress Note ---
Date of Service December 26, 2019 Assessment & Plan (1) Cellulitis of right lower leg: Patient's knee is recovering as expected up to this point. In terms of her cellulitis, it does appear to be improving. She has minimal discomfort associated with her cellulitis. Her pain is well controlled. She is ready for discharge from an orthopedic standpoint, once she is placed on oral antibiotics. She will be discharged home once medically cleared. She will continue Eliquis for DVT prophylaxis. She may follow-up in our orthopedic office in 4 weeks for new x-rays and reevaluation at that time. Admission and Anticipated Discharge Date Admission Date: December 23, 2019 Subjective Patient was seen and examined at bedside today with Dr. Camacho. Patient states her pain has been well controlled. She is able to sleep comfortably through the night. She has gotten out of bed and walked around her room. She denies any fever, chills, sweats, increased drainage. She is excited for discharge. She has no new complaints today. Review of Systems Constitutional: no fever, no chills and no problem reported Eyes: as per Subjective / HPI; no problem reported Ear, Nose, Mouth, Throat: as per Subjective / HPI; no problem reported Respiratory: as per Subjective / HPI; no problem reported Cardiovascular: no edema and no problem reported Gastrointestinal: no nausea, no vomiting and no problem reported Musculoskeletal: as per Subjective / HPI Integumentary: as per Subjective / HPI; no problem reported Neurologic: no tingling, no paresthesia and no problem reported Psychiatric: no problem reported Endocrine: as per Subjective / HPI Hematologic / Lymphatic: as per Subjective / HPI Allergy / Immunological: no problem reported Physical Exam Musculoskeletal: Patient was sitting upright in her bed, in no acute distress. She is alert and oriented x3. Right lower extremity: Knee incision site appears clean, dry, and intact without evidence of discharge or erythema. Clifford are removed. Mild erythema noted from ankle to midshaft tibia. No obvious discharge evident. She is able to plantarflex and dorsiflex her foot without difficulty. Neurovascularly intact. Results & Data ([facility]) Vital Signs (Past 12 Hours) Vital Signs Temp Pulse Resp BP Pulse Ox 12/25/19 23:20 36.8 C 74 16 117/72 94 PG Care Time/CCT Total # of Minutes Spent Total Time Spent with Patient: Total time spent is greater than 50% in coordination of care (as documented) at patient's floor/unit and/or counseling patient: Coding Level of Care Code 04670 Subseq Hosp Care Lvl 1 Diagnoses Cellulitis of right lower leg L03.115
[2019-12-26] MEDS: ACETAMINOPHEN 325 MG TAB PO PRN ×2 (07:44→16:09)
[2019-12-26] MEDS: CHOLECALCIFEROL 1,000 UNITS 25 MCG TAB PO SCH (07:45)
[2019-12-26] MEDS: CALCIUM CARBONATE 1250MG TAB PO SCH (07:46)
[2019-12-26] MEDS: PANTOprazole 40 MG TAB PO SCH (07:47)
[2019-12-26] MEDS: ATORVASTATIN 20 MG TAB PO SCH (07:47)
[2019-12-26] MEDS: SACCHAROMYCES BOULARDII 250 MG CAP PO SCH (07:47)
[2019-12-26] MEDS: CYANOCOBALAMIN (VITAMIN B-12) 100 MCG TABLET PO SCH (07:48)
[2019-12-26] MEDS: POTASSIUM CHLORIDE CRTAB 20 MEQ TABCR PO SCH (07:48)
[2019-12-26] MEDS: APIXABAN 5 MG TABLET PO SCH (07:48)
[2019-12-26] MEDS: NICOTINE 14 MG/24 HR PATCH TD SCH (07:49)
[2019-12-26] MEDS: FUROSEMIDE 40 MG TAB PO SCH (07:49)
[2019-12-26] MEDS: HYDROCORTISONE HC 2.5% CRM 30GM TUBE EXT SCH ×2 (07:51→13:59)
[2019-12-26] MEDS: DICYCLOMINE HCL 10 MG CAP PO PRN (08:25)
[2019-12-26 08:43] LABS: BUN Creatinine Ratio 16.6 (10-20); Calcium 9.4 mg/dl (8.5-10.1); Creatinine Clr Calc Pharmacy 54.1 ml/min; Est GFR (African American) 48.5; Est GFR (Non-African American) 41.8; Potassium 4.1 mmol/L (3.5-5.1)
--- NOTE | 2019-12-26 10:12 | Hospitalist Progress Note ---
Date of Service December 25, 2019 Assessment & Plan (1) Cellulitis of right lower leg: Slowly improving. Continue vancomycin IV and Zosyn IV. no evidence of DVT of RLE. demarkation lines placed today. Re-eval in am. no evidence of complicating right knee infection. (2) Immunocompromised: On Humira for IBD. (3) S/P total knee replacement: right - 12/11/19 at [facility] [place]. appreciate ortho consultation. veronica removed. no evidence of knee infection. pain meds prn. ice prn. 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 twice daily. (5) History of pulmonary embolism: with DVT. (6) CHF (congestive heart failure): Chronic diastolic CHF. Compensated. Continue furosemide and potassium chloride. (7) Nonalcoholic steatohepatitis (BOOTHE): (8) Candidiasis of other urogenital sites: vaginal yeast infection. diflucan 150mg po x 1. (9) Hemorrhoid: anusol cream TID. (10) Crohns disease: controlled. c diff negative. cont probiotics. (11) Morbid obesity with BMI of 40.0-44.9, adult: BMI 43 (12) DVT prophylaxis: eliquis Admission and Anticipated Discharge Date Admission Date: December 23, 2019 Subjective patient with mild pain of right lower extremity/lou. thinks the redness is improved today. asks for 2 items - diflucan - starting to have itching and vaginal discharge. also anusol cream - has active hemorrhoids which are bothersome. mild right knee pain but no worse than previous. no pain with active ROM of the knee, however. no drainage. c/o loose stool - 3x's early today. c diff neg on 12/23. Review of Systems Constitutional: no fever, no chills and no anorexia Respiratory: no cough and no dyspnea Cardiovascular: no chest pain Gastrointestinal: no abdominal pain Physical Exam Constitutional: + morbidly obese; no acute distress and no altered mental status ENMT: external ear and nose normal, oropharynx normal Respiratory: normal respiratory effort, lungs clear to auscultation Cardiovascular: Rate/Rhythm: regular rate and regular rhythm Heart Sounds: normal S1 and normal S2; no murmur Vessels: posterior tibial pulses present and dorsalis pedis pulses present; no JVD Extremities: + edema (trace b/l ankles ) Gastrointestinal (Abdomen): normal bowel sounds, soft, nontender, no hepatosplenomegaly Inspection/Auscultation: + abdominal surgical scar Musculoskeletal: no pain/tenderness with passive ROM of right knee Skin: right TKR incision/scar c/d/i; no drainage/no erythema; mild-moderate cellulitis of right lou extending from mid-calf down to just proximal to ankle Psychiatric: A+Ox3, euthymic affect Results & Data Results & Data ([facility]) Vital Signs (Past 12 Hours) Vital Signs Temp Pulse Resp BP Pulse Ox 12/26/19 08:37 36.6 C 67 18 130/74 96 12/25/19 23:20 36.8 C 74 16 117/72 94 Laboratory Results Cr 1.2 COVID negative PG Care Time/CCT Total # of Minutes Spent Total Time Spent with Patient: Total time spent is greater than 50% in coordination of care (as documented) at patient's floor/unit and/or counseling patient: Coding Level of Care Code 91755 Subseq Hosp Care Lvl 3 Diagnoses Cellulitis of right lower leg L03.115 Immunocompromised D84.9 S/P total knee replacement Z96.651 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 Z79.01 History of pulmonary embolism Z86.711 CHF (congestive heart failure) I50.32 Heart failure chronicity: chronic Heart failure type: diastolic Nonalcoholic steatohepatitis (BOOTHE) K75.81 Candidiasis of other urogenital sites B37.49 Hemorrhoid K64.9 Crohns disease K50.919 Gastrointestinal tract location: unspecified location Digestive disease complication type: unspecified complication Morbid obesity with BMI of 40.0-44.9, adult E66.01; Z68.41 DVT prophylaxis Z29.9 (1) S/P total knee replacement Laterality: right Qualified Code(s): Z96.651 - Presence of right artificial knee joint (2) CHF (congestive heart failure) Heart failure chronicity: chronic Heart failure type: diastolic Qualified Code(s): I50.32 - Chronic diastolic (congestive) heart failure (3) Crohns disease Gastrointestinal tract location: unspecified location Digestive disease complication type: unspecified complication Qualified Code(s): K50.919 - Crohn's disease, unspecified, with unspecified complications
[2019-12-26] MEDS: traMADol HCL 50 MG TABLET PO PRN (12:38)
--- NOTE | 2019-12-26 16:09 | Discharge Summary ---
Date of Service date of admission - December 23, 2019 date of discharge - December 26, 2019 Admission HPI Per Admitting Provider The patient is a 64-year-old female with a past medical history including long- term use of anticoagulants, macromastia, CHF, BOOTHE, history of pulmonary emboli sm, insomnia, hyperlipidemia, history of DVT, history of small bowel obstruction, morbid obesity, migraine headache, GERD, Crohn's disease and diverticulosis. She presents to the emergency department with the development of worsening pain, redness, swelling and warmth from just below her right knee down to and including the dorsum of her foot. In the emergency department work- up included a negative right lower extremity venous Doppler. She was given a dose of Zosyn, normal saline 1 L, Tylenol 500 mg p.o., and Dilaudid 0.5 mg IV. Of note - she underwent right total knee replacement earlier this month. Principal Diagnosis right lower extremity cellulitis Discharge Exam Constitutional + morbidly obese; no acute distress and no altered mental status ENMT external ear and nose normal, oropharynx normal Respiratory normal respiratory effort, lungs clear to auscultation Cardiovascular Rate/Rhythm: regular rate and regular rhythm Heart Sounds: normal S1 and normal S2; no murmur Vessels: posterior tibial pulses present and dorsalis pedis pulses present; no JVD Extremities: + edema (trace b/l ankles ) Gastrointestinal (Abdomen) normal bowel sounds, soft, nontender, no hepatosplenomegaly Inspection/Auscultation: + abdominal surgical scar Musculoskeletal right knee - midline vertical incision c/d/i with no drainage or erythema; active/passive ROM of right knee is normal. Skin mild cellulitis of right anterior lou markedly improved from prior exams; erythema is retreating from previously placed demarkation lines; erythema is fainter than previous exams Psychiatric A+Ox3, euthymic affect Discharge Data Allergies Allergy/AdvReac Type Severity Reaction Status Date / Time duloxetine Allergy Nausea Verified 12/11/19 06:33 Consultations Orthopedic Surgery - Dr Oz Camacho Ordered Studies 12/22/19 21:12 US venous doppler LE RT Urgent - negative for DVT. Hospital Course (1) Cellulitis of right lower leg: Improved with IV antibiotic therapy while hospitalized. Blood cultures remained negative while here. At discharge was transitioned to combination of oral cefdinir and doxycycline, each for 10 days. There was no evidence of complicating right knee infection as confirmed by Dr Camacho from orthopedics. (2) S/P total knee replacement: right - 12/11/19 at [facility] by Dr Oz Camacho. Seen by Dr Camacho - veronica removed, no evidence of knee infection. pain meds prn. ice prn. f/u with Dr Camacho after discharge for recheck of knee. (3) Immunocompromised: On Humira for IBD. (4) correction (current) use of anticoagulants: Continue apixaban 5 mg p.o. twice daily. (5) History of pulmonary embolism: with DVT. Continue apixaban. (6) CHF (congestive heart failure): Chronic diastolic CHF. Compensated. Continue furosemide and potassium chloride. (7) Nonalcoholic steatohepatitis (BOOTHE): (8) Candidiasis of other urogenital sites: vaginal yeast infection. diflucan 150mg po x 1 while hospitalized. (9) Hemorrhoid: anusol cream TID. (10) Crohns disease: controlled. c diff negative. cont probiotics. (11) Morbid obesity with BMI of 40.0-44.9, adult: BMI 43 Total Time Total Time Spent Total Time Spent (In Minutes): 25 Total Time Includes: Examination of the Patient, Discharge Planning and Medication Reconciliation Discharge Plan Discharge Items Patient Disposition: Home - Home Health Services Reason For Visit: Right leg cellulitis Discharge Diagnosis: Right leg cellulitis - improving. Recent right knee replacement - healing well. Activity: As commented below Activity Comment: please follow any prior instructions from Dr Camacho regarding activity Non-emergency contact: Primary Care Provider Call non-emergency contact if: you have any medication questions, your symptoms worsen, your pain is not controlled, your wound has increased redness, your wound has increased drainage and your wound pain has increased Follow-up/Referrals: Awa Richard DO [Primary Care Provider] - 01/02/20 8:20 am (if possible please see Dr Richard THIS WEDNESDAY for recheck of your right leg ) Oz Camacho DO [Physician] - 01/23/20 11:30 am (see Dr Camacho in 4 weeks ) Diet: Heart Healthy Addtl Attending Provider Instructions: You were treated for right leg cellulitis (skin infection) with IV antibiotics. The infection slowly improved while here. You were also seen by Dr Camacho for your recent right knee replacement and he was pleased with your recovery from that surgery. We found no evidence of infection in the right knee. Recommendations: 1. antibiotics - * cefdinir 300mg twice daily for 10 days; take your first dose tonight * doxycycline 100mg twice daily for 10 days; take your first dose tonight * the doxycycline can sometimes cause heartburn * it can also cause a rash if you are out in the sun so please cover up if you spend a significant amount of time in the sun over the next 2 weeks 2. take probiotics once daily for 10 days to help prevent diarrhea 3. continue on your pain medications as needed for right knee pain 4. follow-up this Wednesday with Dr Richard, if possible, for recheck of your right leg Return to [facility] if - * you have fevers over 100 degrees * you have worsening redness or swelling of the right leg * you have worsening redness, swelling, pain, or drainage from the right knee * you develop severe diarrhea * any other concerns Pending Studies at Discharge: No Stand-Alone Forms: My [facility], Smoking Cessation Medications and DC Order Prescriptions: New Saccharomyces boulardii [Florastor] 250 mg Capsule 250 mg PO DAILY 10 Days Qty: 10 RF: 0 cefdinir 300 mg capsule 300 mg PO BID 10 Days Qty: 20 RF: 0 doxycycline hyclate 100 mg tablet 100 mg PO BID 10 Days Qty: 20 RF: 0 Continued atorvastatin 20 mg tablet 20 mg PO QAM Qty: 90 RF: 3 pantoprazole 40 mg tablet,delayed release (DR/EC) 40 mg PO QAM Qty: 90 RF: 1 hydrocortisone 2.5 % cream 1 appln TOP BID PRN (Reason: Hemorrhoids) Qty: 28.35 RF: 0 Hold Instructions: duplicate therapy with shampoo ondansetron 4 mg tablet,disintegrating 4 mg PO Q8H PRN (Reason: Nausea And Vomiting) Qty: 30 RF: 0 potassium chloride 20 mEq tablet,ER particles/crystals 20 meq PO BIDM Qty: 180 RF: 1 azelastine 137 mcg (0.1 %) aerosol,spray 1 spray INTNAS BID PRN (Reason: Congestion) Qty: 30 RF: 3 dicyclomine 10 mg capsule 10 mg PO BID PRN (Reason: abdominal discomfort) Qty: 180 RF: 1 hydromorphone [Dilaudid] 2 mg tablet 2 mg PO Q6H PRN (Reason: pain) Qty: 20 RF: 0 tramadol 50 mg tablet 50 mg PO Q12H PRN (Reason: pain) 30 Days Qty: 30 RF: 0 acetaminophen [Mapap (acetaminophen)] 325 mg tablet 650 mg PO Q4H PRN (Reason: pain) Qty: 90 RF: 0 furosemide 40 mg tablet 40 mg PO QAM Qty: 90 RF: 1 cyanocobalamin (vitamin B-12) 100 mcg tablet 100 mcg PO QAM RF: 0 cholecalciferol (vitamin D3) [Vitamin D3] 1,000 unit capsule 5,000 units PO QAM RF: 0 calcium carbonate [Calcium 500] 500 mg calcium (1,250 mg) Tablet 500 mg PO QAM RF: 0 albuterol sulfate [Ventolin HFA] 90 mcg/actuation HFA aerosol inhaler 2 puffs INH Q6H PRN (Reason: shortness of breath or wheezing or cough) Qty: 18 RF: 0 Humira 40 mg/0.8 mL syringe kit 40 mg SUBCUT UD Qty: 6 RF: 3 montelukast 10 mg tablet 10 mg PO HS RF: 0 diclofenac sodium [Voltaren] 1 % gel 4 g EXT QID PRN (Reason: Pain) RF: 0 ofloxacin 0.3 % drops 10 drp otic (ear) UD PRN (Reason: ud) RF: 0 Eliquis 5 mg tablet 5 mg PO BID RF: 0 Discontinued oxycodone 5 mg Tablet 5 mg PO Q4H PRN (Reason: pain) Qty: 30 RF: 0 cephalexin [Keflex] 500 mg capsule 500 mg PO Q6H 14 Days Qty: 56 RF: 0 Discharge Orders: Discharge Order (Routine); Ordered 12/26/19 Ordered By: Ziggy Collins/Other Patient Handouts: Preventing Deep Vein Thrombosis, Preventing Falls in the Home Admission Data Admit Date/Time: 12/23/19 00:47 Attending Provider: Ziggy Rasheed Admit Provider: Joselo Navas Primary Care Provider: Awa Richard Other Providers: Joselo Navas ; Oz Camacho Other Interventions: Discharge Summary Assessment (RN) Last Done: 12/26/19 16:03 Coding Level of Care Code D/C Day Management <30 mins Diagnoses Cellulitis of right lower leg L03.115 S/P total knee replacement Z96.651 Laterality: right 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
== END 2019-12-26 17:09 | disposition home health service (06) | DRG 603 ==
LOC: ED 20:36 → SUATTDRO 12-23 00:47 → 3N 12-23 00:47